=== PATIENT | female | born 1985 | race Caucasian/White ===

== ENCOUNTER 2022-07-19 13:00 | Emergency (ER) | payer MEDICAID, SELFPAY ==
[2022-07-19 13:10] VITALS: BP 133/92; PULSE 84; RESP 24; TEMP 37.1; O2SAT 100; BMI 51.7
== END 2022-07-19 13:43 | disposition left against medical advice (07) ==
PROVIDERS: Emergency Provider Emergency Medicine; PCP Obstetrics & Gynecology
DX: Z53.21 Procedure and treatment not carried out due to patient leaving prior to being seen by health care provider (principal)

== ENCOUNTER 2022-07-20 15:24 | Outpatient (OUT) | payer MEDICAID, SELFPAY ==
[2022-07-20 16:21] LABS: BOX Test Sent Out Y
== END 2022-07-20 15:25 ==
LOC: LAB 15:24
PROVIDERS: PCP Obstetrics & Gynecology; Visit Provider Obstetrics & Gynecology
DX: N92.6 Irregular menstruation, unspecified (principal)
CPT/HCPCS: 36415

== ENCOUNTER 2022-08-11 14:30 | Outpatient (OUT) | payer MEDICAID, SELFPAY ==
[2022-08-11 15:11] LABS: Glucose 1 Hour 141 mg/dL
== END 2022-08-11 14:31 | disposition home or self-care (01) ==
LOC: LAB 14:32
PROVIDERS: PCP Obstetrics & Gynecology; Visit Provider Obstetrics & Gynecology
DX: Z86.32 Personal history of gestational diabetes (principal)
CPT/HCPCS: 36415; 82950

== ENCOUNTER 2022-08-25 21:18 | Outpatient (OUT) | payer MEDICAID, SELFPAY ==
[2022-08-29 12:08] LABS: Age Gdln ACOG Testing Note (.); HPV Aptima Negative (Negative); IGP, Aptima HPV, rfx 16/18,45 Note (.)
== END 2022-08-25 21:19 | disposition home or self-care (01) ==
PROVIDERS: Visit Provider Physician Assistant
DX: Z12.4 Encounter for screening for malignant neoplasm of cervix (principal); Z11.51 Encounter for screening for human papillomavirus (HPV)
CPT/HCPCS: 87624; G0145

== ENCOUNTER 2022-09-05 20:59 | Emergency (ER) | payer MEDICAID, SELFPAY ==
[2022-09-05 21:11] VITALS: BP 140/70; RESP 16; TEMP 37.2; O2SAT 98; BMI 51.7
--- NOTE | 2022-09-05 21:45 | PC.NURSE ---
first attempt at getting hear tones unsuccessful. patient states it is not always easy to obtain. Nursing grading supervisor at bedside to attempt
--- NOTE | 2022-09-05 22:15 | ED.GENADUL1 ---
HPI - General Adult General Chief complaint: Recheck/Abnormal Lab/Rx Stated complaint: Decreased movement - under 20 weeks Time Seen by Provider: 09/05/22 22:13 Mode of arrival: walk-in History of Present Illness HPI narrative: patient approx 18 weeks . States she had not felt the fetus today and was concerned. She has no symptoms. No nausea, fever, spotting or urinary symptoms. No abdominal pain and doesn't feel ill Related Data Home Medications Medication Instructions Recorded Confirmed buprenorphine HCl 8 mg sublingual mg sublingual 09/05/22 tablet doxylamine succinate 25 mg tablet mg 09/05/22 (Nighttime Sleep-Aid (doxylamine)) ondansetron HCl 4 mg tablet mg 09/05/22 vit no.95-ferrous tab PO 09/05/22 fumarate 28 mg-folic acid 800 mcg tablet () Allergies Allergy/AdvReac Type Severity Reaction Status Date / Time Penicillins Allergy Severe Anaphylaxis Verified 09/05/22 21:20 Review of Systems ROS Status of ROS 10 or more systems reviewed and unremarkable except as noted in history and below PFSH PFS Social History Smoking status: Current every day smoker Exam Constitutional Vital Signs, click to edit/add: Last Vital Signs Temp 99 F 09/05/22 21:11 Resp 16 09/05/22 21:11 BP 140/70 H 09/05/22 21:11 Pulse Ox 98 09/05/22 21:11 O2 Del Method Room Air 09/05/22 21:11 Common normals: no apparent distress, oriented x3, alert and well nourished Eye Common normals: EOMs intact bilaterally and conjunctivae normal Respiratory Common normals: normal respiratory effort, no retractions, no use of accessory muscles and clear to auscultation bilaterally Cardio Common normals: regular rate, regular rhythm, S1 normal heart sound and S2 normal heart sound GI Common normals: Normal to inspection, nondistended, normoactive bowel sounds present, soft to palpation and non-tender Back & Pelvis Common normals: no CVA tenderness Extremity Common normals: normal to inspection, no joint enlargement and no pedal edema Neuro Common normals: CN's II-XII intact bilaterally, moves all extremities, no focal motor deficits and no sensory deficits noted Psych Appearance: grossly normal Course Vital Signs Vital signs: Vital Signs Temperature 99 F 09/05/22 21:11 Respiratory Rate 16 09/05/22 21:11 Blood Pressure 140/70 H 09/05/22 21:11 Pulse Oximetry 98 09/05/22 21:11 Oxygen Delivery Method Room Air 09/05/22 21:11 Temperature 99 F 09/05/22 21:11 Respiratory Rate 16 09/05/22 21:11 Blood Pressure 140/70 H 09/05/22 21:11 Pulse Oximetry 98 09/05/22 21:11 Oxygen Delivery Method Room Air 09/05/22 21:11 Medical Decision Making MDM Narrative Medical decision making narrative: patient is about 18 weeks . Did not feel the fetus moved today and wanted to get checked. Nursing staff able to find normal heart tones and they could feel fetus movement while checking for heart tones. Mother relieved. States she has no further concerns at this time and is requesting discharge Discharge Plan Discharge Chief Complaint: Recheck/Abnormal Lab/Rx Clinical Impression: and not yet delivered in second trimester Patient Disposition: Home, Self-Care Prescriptions / Home Meds: No Action Nighttime Sleep-Aid (doxylamn) 25 mg tablet buprenorphine HCl 8 mg tablet, sublingual SUBLINGUAL ondansetron HCl 4 mg tablet PNV cmb#95-ferrous fumarate-FA [] 28 mg iron- 800 mcg tablet PO Instructions: at 15 to 18 Weeks (ED) Stand Alone Forms: Portal Instructions Referrals: Shaikh Garland MD [Primary Care Provider] - 1 week
--- NOTE | 2022-09-05 22:18 | PC.NURSE ---
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 179bpm and was also able to feel kicks. dr. brito notified
== END 2022-09-05 22:44 | disposition home or self-care (01) ==
PROVIDERS: Emergency Provider Internal Medicine; PCP Internal Medicine
DX: O99.332 Smoking (tobacco) complicating pregnancy, second trimester (principal); F17.210 Nicotine dependence, cigarettes, uncomplicated; Z3A.18 18 weeks gestation of pregnancy; Z79.899 Other long term (current) drug therapy
CPT/HCPCS: 99281

== ENCOUNTER 2022-09-14 13:00 | Outpatient (OUT) | payer MEDICAID, SELFPAY ==
--- NOTE | 2022-09-14 13:04 | US_ITS ---
[address] [address] Patient Name: RYAN HALL MRN: [id number] date: 1985 Sex: F Assigned Patient Location: US Current Patient Location: US Accession/Order Number: [id number] Exam Date: 09/14/2022 13:10 Report Date: 09/14/2022 15:38 At the request of: EDUAR PADILLA Procedure: US OB cervical length EXAMINATION: US OB anatomy, US OB cervical length HISTORY: Second Trimester Z34.92 COMPARISON: Ultrasound transvaginal 06/26/2022 TECHNIQUE: Transabdominal sonographic examination was performed for obstetrical and evaluation. FINDINGS: Number: 1 Heart Rate: 142.1 bpm H.B. /min Amniotic Fluid Volume: Subjectively normal Placental Location: POSTERIOR with lower margin 1.4 cm from os. Cervix Length: 5.5 cm, closed. ANATOMY: Normal Structures -cerebellum, choroid plexus, cisterna magna, lateral cerebral ventricles, orbits, midline falx, hard palate, four-chamber heart, RVOT, LVOT, stomach, kidneys, bladder, umbilical cord insertion into abdomen, three-vessel cord, cervical spine, thoracic spine, lumbar spine, sacral spine, right upper extremity, left upper extremity, right lower extremity, left lower extremity. SUBOPTIMALLY SEEN: Hard palate, cardiac outflow tracts, kidneys ABNORMALITIES: None BIOMETRY: BPD: 4.4 cm 19 weeks 2 days HC: 16.8 cm 19 weeks 3 days AC: 14.6 cm 19 weeks 6 days FL: 3.1 cm 19 weeks 5 days EFW:310.5 grams; 39% FL/AC: 21.4 FL/BPD: 71.2 HC/AC: 1.2 GESTATIONAL AGE: Age by EDC: 19 weeks 6 days REJI by EDC: 02/02/2023 Age by current US: 19 weeks 4 days REJI by current US: 02/04/2023 US/US OB cervical length IMPRESSION: 1. Single live intrauterine with growth detailed above. 2. Posterior low-lying placenta. 3. Suboptimal visualization of the hard palate, cardiac outflow tracts, and kidneys secondary to patient body habitus and position. Electronically authenticated by: RODRIGO ACOSTA Date: 09/14/2022 15:38
--- NOTE | 2022-09-14 13:04 | US_ITS ---
[address] [address] Patient Name: RYAN HALL MRN: [id number] date: 1985 Sex: F Assigned Patient Location: US Current Patient Location: US Accession/Order Number: [id number] Exam Date: 09/14/2022 13:10 Report Date: 09/14/2022 15:38 At the request of: EDUAR PADILLA Procedure: US OB anatomy EXAMINATION: US OB anatomy, US OB cervical length HISTORY: Second Trimester Z34.92 COMPARISON: Ultrasound transvaginal 06/26/2022 TECHNIQUE: Transabdominal sonographic examination was performed for obstetrical and evaluation. FINDINGS: Number: 1 Heart Rate: 142.1 bpm H.B. /min Amniotic Fluid Volume: Subjectively normal Placental Location: POSTERIOR with lower margin 1.4 cm from os. Cervix Length: 5.5 cm, closed. ANATOMY: Normal Structures -cerebellum, choroid plexus, cisterna magna, lateral cerebral ventricles, orbits, midline falx, hard palate, four-chamber heart, RVOT, LVOT, stomach, kidneys, bladder, umbilical cord insertion into abdomen, three-vessel cord, cervical spine, thoracic spine, lumbar spine, sacral spine, right upper extremity, left upper extremity, right lower extremity, left lower extremity. SUBOPTIMALLY SEEN: Hard palate, cardiac outflow tracts, kidneys ABNORMALITIES: None BIOMETRY: BPD: 4.4 cm 19 weeks 2 days HC: 16.8 cm 19 weeks 3 days AC: 14.6 cm 19 weeks 6 days FL: 3.1 cm 19 weeks 5 days EFW:310.5 grams; 39% FL/AC: 21.4 FL/BPD: 71.2 HC/AC: 1.2 GESTATIONAL AGE: Age by EDC: 19 weeks 6 days REJI by EDC: 02/02/2023 Age by current US: 19 weeks 4 days REJI by current US: 02/04/2023 US/US OB anatomy IMPRESSION: 1. Single live intrauterine with growth detailed above. 2. Posterior low-lying placenta. 3. Suboptimal visualization of the hard palate, cardiac outflow tracts, and kidneys secondary to patient body habitus and position. Electronically authenticated by: RODRIGO ACOSTA Date: 09/14/2022 15:38
== END 2022-09-14 13:01 | disposition home or self-care (01) ==
LOC: US 13:00
PROVIDERS: PCP Internal Medicine; Visit Provider Physician Assistant
DX: Z34.92 Encounter for supervision of normal pregnancy, unspecified, second trimester (principal); Z3A.19 19 weeks gestation of pregnancy
CPT/HCPCS: 76805; 76817

== ENCOUNTER 2022-10-16 16:01 | Outpatient (OUT) | payer MEDICAID, SELFPAY ==
[2022-10-22 00:06] LABS: AFP Value 93.2 ng/mL (.); Gest. Age on Collection Date 24.4 weeks (.); Gestat. Age Based On Ultrasound (.); Insulin Dep Diabetes No (.); Maternal Age At EDD 37.8 yr (.); OSBR Risk 1 IN See interpretation. (.); Results Report (.)
== END 2022-10-16 16:02 | disposition home or self-care (01) ==
LOC: LAB 16:01
PROVIDERS: PCP Internal Medicine; Visit Provider Physician Assistant
DX: Z34.92 Encounter for supervision of normal pregnancy, unspecified, second trimester (principal)
CPT/HCPCS: 36415; 82105

== ENCOUNTER 2022-10-16 16:02 | Outpatient (OUT) | payer MEDICAID, SELFPAY ==
[2022-10-16 16:21] LABS: Basophils Absolute Auto 0.1 10^3/uL (0.0-0.1); Basophils Percent Auto 0.5 % (0.2-2.0); Eosinophils Absolute Auto 0.2 10^3/uL (0.0-0.7); Eosinophils Percent Auto 1.6 % (0.9-7.0); Hematocrit 33.4 % (36.0-48.0); Hemoglobin 11.1 g/dL (12.0-16.0); Immature Granulocytes Abs Auto 0.08 10^3/uL (0.00-0.03); Immature Granulocytes Pct Auto 0.8 % (0.0-0.5); Lymphocytes Absolute Auto 1.2 10^3/uL (1.2-3.8); Lymphocytes Percent Auto 12.7 % (20.5-60.0); Mean Corpuscular HGB Conc 33.2 g/dL (29.9-35.2); Mean Corpuscular Hemoglobin 30.9 pg (26.7-34.0); Mean Platelet Volume 10.4 fL (9.5-13.5); Monocytes Absolute Auto 0.4 10^3/uL (0.3-0.8); Monocytes Percent Auto 4.6 % (1.7-12.0); Neutrophils Absolute Auto 7.7 10^3/uL (1.4-6.5); Neutrophils Percent Auto 79.8 % (43.0-75.0); Platelet Count 203 10^3/uL (150-450); Red Blood Count 3.59 10^6/uL (4.20-5.40); White Blood Count 9.6 10^3/uL (4.0-11.0)
[2022-10-16 16:47] LABS: Alanine Aminotransferase 16 U/L (14-59); Albumin Globulin Ratio 0.7; Albumin Level 3.1 g/dL (3.4-5.0); Alkaline Phosphatase 61 U/L (46-116); Anion Gap 13.1; Aspartate Amino Transferase 10 U/L (15-37); BUN Creatinine Ratio 15.9; Bilirubin Total 0.3 mg/dL (0.2-1.0); Calcium 9.3 mg/dL (8.5-10.1); Carbon Dioxide 26.1 mmol/L (21.0-32.0); Chloride 102 mmol/L (98-107); Estimated GFR (African America >60 (>=60); Estimated GFR (Non-African Ame >60 (>=60); Globulin 4.3 g/dL; Glucose 90 mg/dL (74-106); Potassium 4.2 mmol/L (3.5-5.1); Sodium 137 mmol/L (136-145); Total Protein 7.4 g/dL (6.4-8.2)
== END 2022-10-16 16:03 | disposition home or self-care (01) ==
LOC: LAB 16:02
PROVIDERS: PCP Internal Medicine; Visit Provider Obstetrics & Gynecology
DX: O99.320 Drug use complicating pregnancy, unspecified trimester (principal); F11.20 Opioid dependence, uncomplicated; Z13.1 Encounter for screening for diabetes mellitus; Z34.92 Encounter for supervision of normal pregnancy, unspecified, second trimester
CPT/HCPCS: 36415; 80053; 82105; 85025

== ENCOUNTER 2022-11-03 11:55 | Outpatient (OUT) | payer MEDICAID, SELFPAY | END 2022-11-03 11:56 | disposition home or self-care (01) | LOC: CR 11:55 | PROVIDERS: PCP Internal Medicine; Visit Provider Obstetrics & Gynecology | DX: O24.419 Gestational diabetes mellitus in pregnancy, unspecified control (principal) | CPT/HCPCS: G0108 ==

== ENCOUNTER 2022-11-26 01:04 | Emergency (ER) | payer MEDICAID, SELFPAY ==
[2022-11-26 01:07] VITALS: BP 160/79; PULSE 94; RESP 17; TEMP 36.5; O2SAT 100; BMI 52.5
--- NOTE | 2022-11-26 01:31 | ED.GENADUL1 ---
HPI - General Adult General Chief complaint: Abdominal Pain Stated complaint: 30 weeks with constipation Time Seen by Provider: 11/26/22 01:12 Source: patient Mode of arrival: walk-in Limitations: no limitations History of Present Illness HPI narrative: This 37-year-old female who is 30 weeks presents for evaluation of painful hemorrhoids. The patient states that she has been using Colace 3 times a day and MiraLAX once a week. This has been keeping her bowel movements regular. Earlier this evening she had a bowel movement and had several hemorrhoids prolapse out of her rectum. She states that this is painful for her. She tried reducing the hemorrhoids back in her rectum but was unable to due to the discomfort. She is not having any bleeding from the hemorrhoids. She is not having any abdominal pain or vaginal bleeding. She denies any related complaints. She states that she had hemorrhoids with her other pregnancies but they were not this bad and that was also 10 years ago. She is also on Subutex that constipates her to a certain degree. Related Data Home Medications Medication Instructions Recorded Confirmed buprenorphine HCl 8 mg sublingual mg sublingual 09/05/22 tablet doxylamine succinate 25 mg tablet mg 09/05/22 (Nighttime Sleep-Aid (doxylamine)) ondansetron HCl 4 mg tablet mg 09/05/22 vit no.95-ferrous tab PO 09/05/22 fumarate 28 mg-folic acid 800 mcg tablet () Allergies Allergy/AdvReac Type Severity Reaction Status Date / Time Penicillins Allergy Severe Anaphylaxis Verified 11/26/22 01:11 Review of Systems ROS Status of ROS 10 or more systems reviewed and unremarkable except as noted in history and below [facility] Social History Smoking status: Current every day smoker Exam Narrative Exam Narrative: Nurses note and vital signs reviewed and patient is not hypoxic. Blood pressure is elevated at 160/79 General: Uncomfortable-appearing overweight female, no respiratory distress Skin: Warm, dry, no pallor noted. There is no rash noted. Head: Normocephalic, atraumatic Eye: Normal conjunctiva, no drainage, EOMI. PERRL Cardiovascular: Regular Rate and Rhythm Respiratory: Patient is in no distress, no accessory muscle use, lungs are clear to auscultation, no wheezing, rales or rhonchi Back: non-tender, no CVA tenderness bilaterally to percussion. GI: Normal bowel sounds, Rapid uterus, nontender Rectal exam: 3 nonthrombosed external hemorrhoids are noted. No bleeding appreciated. I was able to gently reduce 2 of these back into the rectum but they prolapse almost immediately after removing my finger. Musculoskeletal: The patient has no evidence of calf tenderness, no pitting edema, symmetrical pulses noted bilaterally Neurological: A&O x4, normal speech Psychiatric: Cooperative Constitutional Vital Signs, click to edit/add: Last Vital Signs Temp 97.7 F 11/26/22 01:07 Pulse 94 H 11/26/22 01:07 Resp 17 11/26/22 01:07 BP 160/79 H 11/26/22 01:07 Pulse Ox 100 11/26/22 01:07 O2 Del Method Room Air 11/26/22 01:07 Course Vital Signs Vital signs: Vital Signs Temperature 97.7 F 11/26/22 01:07 Pulse Rate 94 H 11/26/22 01:07 Respiratory Rate 17 11/26/22 01:07 Blood Pressure 160/79 H 11/26/22 01:07 Pulse Oximetry 100 11/26/22 01:07 Oxygen Delivery Method Room Air 11/26/22 01:07 Temperature 97.7 F 11/26/22 01:07 Pulse Rate 94 H 11/26/22 01:07 Respiratory Rate 17 11/26/22 01:07 Blood Pressure 160/79 H 11/26/22 01:07 Pulse Oximetry 100 11/26/22 01:07 Oxygen Delivery Method Room Air 11/26/22 01:07 Medical Decision Making MDM Narrative Medical decision making narrative: This 30-year-old female presents for evaluation of painful hemorrhoids that started this evening after having a bowel movement. She has been taking MiraLAX once a week and Colace 3 times a day. She has 3 smaall nonthrombosed external hemorrhoids. I was able to gently reduce 2 of them but they did prolapse again out of the rectum almost immediately. She was treated emergency department with a Urojet placed into her rectum for pain control. Discharged home with prescription for Proctofoam HC. Additionally I encouraged her to do sits baths and increase her MiraLAX to 3-4 times a week or daily. Her blood pressure was notably elevated upon arrival. We rechecked it after she was more comfortable and it was in the 130s/70s manually. She was given a note for work and was instructed to monitor her blood pressure closely. Discharge Plan Discharge Chief Complaint: Abdominal Pain Clinical Impression: Acute hemorrhoid, and not yet delivered in second trimester Patient Disposition: Home, Self-Care Time of Disposition Decision: 01:47 Condition: Good Prescriptions / Home Meds: No Action Nighttime Sleep-Aid (doxylamn) 25 mg tablet buprenorphine HCl 8 mg tablet, sublingual SUBLINGUAL ondansetron HCl 4 mg tablet PNV cmb#95-ferrous fumarate-FA [] 28 mg iron- 800 mcg tablet PO Instructions: Hemorrhoids (ED), Sitz Bath (DC) Stand Alone Forms: Portal Instructions Referrals: Shaikh Garland MD [Primary Care Provider] - 1 week
[2022-11-26] MEDS: LIDOCAINE 2% JELLY 10 ML UR (01:44)
[2022-11-26 01:58] VITALS: BP 132/70
== END 2022-11-26 01:59 | disposition home or self-care (01) ==
PROVIDERS: Emergency Provider Emergency Medicine; PCP Internal Medicine
DX: O22.43 Hemorrhoids in pregnancy, third trimester (principal); O99.333 Smoking (tobacco) complicating pregnancy, third trimester; F17.210 Nicotine dependence, cigarettes, uncomplicated; Z3A.30 30 weeks gestation of pregnancy; Z79.899 Other long term (current) drug therapy
CPT/HCPCS: 99283

== ENCOUNTER 2022-12-17 06:59 | Outpatient (OUT) | payer MEDICAID, SELFPAY ==
--- NOTE | 2022-12-17 | US_ITS ---
[address] [address] Patient Name: RYAN HALL MRN: [facility]:[id number] date: 1985 Sex: F Assigned Patient Location: [facility] Current Patient Location: Accession/Order Number: [id number] Exam Date: 12/17/2022 15:00 Report Date: 12/18/2022 17:55 At the request of: JESSICA GARG Procedure: US OB BPP w non-stress EXAMINATION: US OB BPP w non-stress HISTORY: GESTATION DIABETES O24.410 COMPARISON: No relevant comparison available. TECHNIQUE: Ultrasound biophysical profile was performed in the radiology department. FINDINGS: BREATHING MOVEMENTS: 2.0 GROSS BODY MOVEMENTS: 2.0 TONE: 2.0 QUALITATIVE AMNIOTIC FLUID VOLUME: 2.0 PRESENTATION: BREECH HEART RATE: 131.1 bpm H.B./min AMNIOTIC FLUID VOLUME: 13.3 cm cm GESTATIONAL AGE: 33 weeks 2 days CONCLUSION: Total biophysical profile score: 8.0 Electronically authenticated by: GABO DYKES Date: 12/18/2022 17:55
--- NOTE | 2022-12-17 | US_ITS ---
[address] [address] Patient Name: RYAN HALL MRN: [facility]:[id number] date: 1985 Sex: F Assigned Patient Location: US Current Patient Location: US Accession/Order Number: [id number] Exam Date: 12/17/2022 15:00 Report Date: 12/18/2022 17:59 At the request of: JESSICA GARG Procedure: US OB growth PROCEDURE: US OB growth HISTORY: FEATL SIZE INCONSISTENT WITH DATS O26.849 COMPARISON: None. TECHNIQUE: Transabdominal sonographic examination was performed for obstetrical and evaluation. FINDINGS: Number: 1 Heart Rate: 131.1 bpm H.B. /min Amniotic Fluid Volume: 13.3 cm, largest pocket 4.9 cm Placental Location: Posterior BIOMETRY: BPD: 8.1 cm 32 weeks 3 days , 20% HC: 30.2 cm 33 weeks 4 days , 21% AC:29.8 cm 33 weeks 5 days , 66% FL: 6.7 cm 34 weeks 4 days , 75% EFW: 2292.4 grams 5 lbs. 1 oz., 60% FL/AC: 22.6 FL/BPD: 83.6 HC/AC: 1.0 GESTATIONAL AGE: Age by EDC: 33 weeks 2 days REJI by EDC: 02/02/2023 Ultrasound Age: 33 weeks 4 days Ultrasound REJI: 01/31/2023 US/US OB growth IMPRESSION: Normal interval growth *Reference: [facility] Practice Guideline for the performance of Obstetric Ultrasound Examinations, November 15, 2006. Electronically authenticated by: GABO DYKES Date: 12/18/2022 17:59
[2022-12-17 16:15] VITALS: BP 134/61; PULSE 82
== END 2022-12-17 16:46 | disposition home or self-care (01) ==
LOC: US 06:59 → FBC 15:13
PROVIDERS: PCP Internal Medicine; Visit Provider Obstetrics & Gynecology
DX: O24.410 Gestational diabetes mellitus in pregnancy, diet controlled (principal); O26.843 Uterine size-date discrepancy, third trimester; Z3A.32 32 weeks gestation of pregnancy
CPT/HCPCS: 76816; 76818

== ENCOUNTER 2022-12-22 08:25 | Outpatient (OUT) | payer MEDICAID, SELFPAY ==
--- NOTE | 2022-12-22 15:32 | US_ITS ---
[address] [address] Patient Name: RYAN HALL MRN: [facility]:[id number] date: 1985 Sex: F Assigned Patient Location: [facility] Current Patient Location: Accession/Order Number: [id number] Exam Date: 12/22/2022 15:32 Report Date: 12/23/2022 15:53 At the request of: JESSICA GARG Procedure: US OB BPP w non-stress EXAMINATION: US OB BPP w non-stress HISTORY: Diet controlled GDM COMPARISON: Ultrasound biophysical 12/17/2022 TECHNIQUE: Ultrasound biophysical profile was performed in the radiology department. BREATHING MOVEMENTS: 2.0 GROSS BODY MOVEMENTS: 2.0 TONE: 2.0 QUALITATIVE AMNIOTIC FLUID VOLUME: 2.0 PRESENTATION: BREECH HEART RATE: 137.1 bpm bpm. AMNIOTIC FLUID VOLUME: 13.3 cm GESTATIONAL AGE: 34 weeks 0 days CONCLUSION: Total biophysical profile score 8.0. Electronically authenticated by: RODRIGO ACOSTA Date: 12/23/2022 15:53
[2022-12-22 15:58] VITALS: BP 138/72; PULSE 80
== END 2022-12-22 16:45 | disposition home or self-care (01) ==
LOC: US 08:26 → FBC 15:31
PROVIDERS: PCP Internal Medicine; Visit Provider Obstetrics & Gynecology
DX: O26.843 Uterine size-date discrepancy, third trimester (principal); O24.410 Gestational diabetes mellitus in pregnancy, diet controlled; Z3A.34 34 weeks gestation of pregnancy
CPT/HCPCS: 76818

== ENCOUNTER 2022-12-25 08:10 | Outpatient (OUT) | payer MEDICAID, SELFPAY ==
[2022-12-25 15:22] VITALS: BP 142/63; PULSE 85
== END 2022-12-25 15:45 | disposition home or self-care (01) ==
LOC: FBCO 08:10 → FBC 15:11
PROVIDERS: PCP Internal Medicine; Visit Provider Obstetrics & Gynecology
DX: O24.419 Gestational diabetes mellitus in pregnancy, unspecified control (principal); Z3A.00 Weeks of gestation of pregnancy not specified
CPT/HCPCS: 59025

== ENCOUNTER 2022-12-29 07:32 | Outpatient (OUT) | payer MEDICAID, SELFPAY ==
--- NOTE | 2022-12-29 13:11 | US_ITS ---
[address] [address] Patient Name: RYAN HALL MRN: [facility]:[id number] date: 1985 Sex: F Assigned Patient Location: [facility] Current Patient Location: Accession/Order Number: [id number] Exam Date: 12/29/2022 13:15 Report Date: 12/29/2022 16:20 At the request of: JESSICA GARG Procedure: US OB BPP w non-stress EXAMINATION: US OB BPP w non-stress HISTORY: DIET CONTROLLED GESTATIONAL DIABETES MELLITUS O24.410 COMPARISON: Ultrasound OB biophysical 12/22/2022 TECHNIQUE: Ultrasound biophysical profile was performed in the radiology department. BREATHING MOVEMENTS: 2.0 GROSS BODY MOVEMENTS: 2.0 TONE: 2.0 QUALITATIVE AMNIOTIC FLUID VOLUME: 2.0 PRESENTATION: BREECH HEART RATE: 138.5 bpm bpm. AMNIOTIC FLUID VOLUME: 14.2 cm GESTATIONAL AGE: 35 weeks 0 days CONCLUSION: Total biophysical profile score 8.0. Electronically authenticated by: RODRIGO ACOSTA Date: 12/29/2022 16:20
[2022-12-29 13:46] VITALS: BP 148/77; PULSE 81
== END 2022-12-29 14:15 | disposition home or self-care (01) ==
LOC: US 07:32 → FBC 13:13
PROVIDERS: PCP Internal Medicine; Visit Provider Obstetrics & Gynecology
DX: O24.410 Gestational diabetes mellitus in pregnancy, diet controlled (principal); O32.1XX0 Maternal care for breech presentation, not applicable or unspecified; Z3A.35 35 weeks gestation of pregnancy
CPT/HCPCS: 76818

== ENCOUNTER 2023-01-01 07:13 | Outpatient (OUT) | payer MEDICAID, SELFPAY ==
[2023-01-01 13:56] VITALS: BP 148/74; PULSE 87
== END 2023-01-01 14:00 | disposition home or self-care (01) ==
LOC: FBCO 07:13 → FBC 13:11
PROVIDERS: PCP Internal Medicine; Visit Provider Obstetrics & Gynecology
DX: O24.419 Gestational diabetes mellitus in pregnancy, unspecified control (principal); Z3A.00 Weeks of gestation of pregnancy not specified
CPT/HCPCS: 59025

== ENCOUNTER 2023-01-05 07:29 | Outpatient (OUT) | payer MEDICAID, SELFPAY ==
--- NOTE | 2023-01-05 13:23 | US_ITS ---
[address] [address] Patient Name: RYAN HALL MRN: [facility]:[id number] date: 1985 Sex: F Assigned Patient Location: [facility] Current Patient Location: [facility] Accession/Order Number: [id number] Exam Date: 01/05/2023 13:30 Report Date: 01/05/2023 15:18 At the request of: JESSICA GARG Procedure: US OB BPP w non-stress EXAMINATION: US OB BPP w non-stress HISTORY: Diet controlled gestational diabetes mellitus COMPARISON: 12/29/22 TECHNIQUE: Ultrasound biophysical profile was performed in the radiology department. BREATHING MOVEMENTS: 2.0 GROSS BODY MOVEMENTS: 2.0 TONE: 2.0 QUALITATIVE AMNIOTIC FLUID VOLUME: 2.0 PRESENTATION: CEPHALIC HEART RATE: 128.5 bpm bpm. AMNIOTIC FLUID VOLUME: 13.1 cm GESTATIONAL AGE: 36 weeks 0 days CONCLUSION: Total biophysical profile score 8.0. Electronically authenticated by: RODRIGO ACOSTA Date: 01/05/2023 15:18
[2023-01-05 13:25] VITALS: BP 140/70; PULSE 100
--- OUTSIDE RECORDS SUMMARY | 2023-02-02 22:06 | XMS_ITS | CCD ---
Author Name Unknown Address [address] [place] [address] Organization [facility] Care Team Providers Care Life Science Taxonomist Name Role Phone IVAN FERNANDEZ Unavailable Unavailable GLORIA SNIDER Unavailable Unavailable ABBUD, TINA A Unavailable Unavailable ABBUD, TINA A Unavailable Unavailable ABBUD, TINA A Unavailable Unavailable ABBUD, TINA A Unavailable Unavailable ABBUD, TINA A Unavailable Unavailable ABBUD, TINA A Unavailable Unavailable ABBUD, TINA A Unavailable Unavailable ABBUD, TINA A Unavailable Unavailable ABBUD, TINA A Unavailable Unavailable ABBUD, TINA A Unavailable Unavailable ABBUD, TINA A Unavailable Unavailable ABBUD, TINA A Unavailable Unavailable ABBUD, TINA A Unavailable Unavailable ABBUD, TINA A Unavailable Unavailable ABBUD, TINA A Unavailable Unavailable ABBUD, TINA A Unavailable Unavailable ABBUD, TINA A Unavailable Unavailable ABBUD, TINA A Unavailable Unavailable ABBUD, TINA A Unavailable Unavailable ABBUD, TINA A Unavailable Unavailable ABBUD, TINA A Unavailable Unavailable ABBUD, TINA A Unavailable Unavailable ABBUD, TINA A Unavailable Unavailable ABBUD, TINA A Unavailable Unavailable ABBUD, TINA A Unavailable Unavailable ABBUD, TINA A Unavailable Unavailable ABBUD, TINA A Unavailable Unavailable ABBUD, TINA A Unavailable Unavailable BAGHDY, VERO Unavailable Unavailable GLORIA SNIDER Unavailable Unavailable KIAH, YAZID Unavailable Unavailable ZAIZAFOUN, MANAF Unavailable Unavailable TYLOR SARABIA Unavailable Unavailable ABBUD, TINA A Unavailable Unavailable FELIPA PYLE Unavailable Unavailable LUIS LÓPEZ I Unavailable Unavailable KATHERINE, TANIKA Unavailable Unavailable QUERUBIN, BRIAN Unavailable Unavailable HERRERA, GOVINDRAM K Unavailable Unavailable NO FAMILY DOCTOR, NO FAMILY DOCTOR Primary Care Unavailable GABO HAYES Attending Unavailable PROVIDER, UNKNOWN Admitting Unavailable YUMIKO ALLISON Attending Unavailable FAWWAD, KISER H Admitting Unavailable FAWWAD, KISER H Attending Unavailable FAWWAD, KISER H Primary Care Unavailable FAWWAD, KISER H Consulting Unavailable FOREST ., DR LOPEZ Admitting Unavailable FOREST ., DR LOPEZ Attending Unavailable FAWWAD, KISER H Primary Care Unavailable FOREST ., DR LOPEZ Consulting Unavailable ZIEBER, DR RODRIGO Viveros Consulting Unavailable REQUEST, DR RONNA LISTED Consulting Unavaila ble FAWWAD, KISER H Primary Care Unavailable HAY ., DR MCKEON Admitting Unavailable HAY ., DR MCKEON Attending Unavailable GRECHNY ., KEHINDE ARTHUR Consulting Unavailabl e FOREST ., DR LOPEZ Admitting Unavailable FOREST ., DR LOPEZ Attending Unavailable FAWWAD, KISER H Primary Care Unavailable FOREST ., DR LOPEZ Consulting Unavailable FAWWAD, KISER H Admitting Unavailable FAWWAD, KISER H Attending Unavailable FAWWAD, KISER H Primary Care Unavailable FAWWAD, KISER H Consulting Unavailable Kayce MATHIS, Liliane Briones Attending Lien Devries PA-C, Liliane Briones Attending Lien Garland MD, Referring Unavailable Suresh Broderick MD Attending Unavaila ble FORESTJESSICA Attending Unavailable EDUAR PADILLA Attending Unavailable VALERIE, EDUAR Attending Unavailable EDUAR PADILLA Attending Unavailable Allergies Allergy Classification Reported Allergen(s) Allergy Type Date of Onset Reaction(s) Facility (1 source) Acetaminophen / HYDROcodone; Translations: [HYDROCODONE-ACETA MINOPHEN] Drug Allergy 9 [facility] Repository (2 sources) traMADol; Translations: [TRAMADOL] Drug Allergy 6 [facility] Repository (1 source) Acetaminophen / HYDROcodone Drug Allergy 6 [facility] Repository (1 source) Codeine Drug Allergy 9 [facility] Repository (1 source) Penicillin Drug Allergy 0 [facility] Repository Problems Active Problems Problem Classification Problem Date Documented Da te Episodic/Chronic Abdominal pain (2 sources) Unspecified abdominal pain; Translations: [Unspecified abdominal pain] Onset: 04-05-2018 Episodic Allergic reactions (1 source) Allergy status to penicillin Onset: 04-05-2018 Episodic Bacterial infection; unspecified site (1 source) Bacteremia; Translations: [Bacteremia] Onset: 01-06-2018 Episodic Chronic obstructive pulmonary disease and bronchiectasis (1 source) Bronchitis, not specified as acute or chronic; Translations: [Bronchitis, not specified as acute or chronic] Onset: 12-25-2017 Episodic Deficiency and other anemia (1 source) Iron deficiency anemia secondary to blood loss (chronic); Translations: [Iron deficiency anemia secondary to blood loss (chronic)] Onset: 12-25-2017 Chronic Disorders of teeth and jaw (1 source) Periapical abscess without sinus Onset: 04-05-2018 Episodic Fever of unknown origin (1 source) Fever, unspecified; Translations: [Fever, unspecified] Onset: 12-25-2017 Episodic Hepatitis (1 source) Chronic viral hepatitis C; Translations: [CHRONIC VIRAL HEPATITIS C] Onset: 04-23-2022 Chronic Menstrual disorders (4 sources) Irregular menstruation, unspecified; Translations: [IRREGULAR MENSTRUATION UNSPECIFIED] Onset: 06-15-2022 Chronic Other lower respiratory disease (2 sources) Shortness of breath; Translations: [Shortness of breath] Onset: 04-05-2018 Episodic Other and delivery including normal (1 source) Encounter for supervision of normal , unspecified, first trimester; Translations: [ENC SUP NORMAL PREG UNS FIRST TRI] Onset: 06-28-2022 Episodic Other screening for suspected conditions (not mental disorders or infectious disease) (4 sources) Abnormal findings on diagnostic imaging of other specified body structures; Translations: [ABNORML FIND DX IMG OTH BODY STRUC] Onset: 08-11-2021 Chronic Other skin disorders (4 sources) Localized swelling, mass and lump, head; Translations: [LOCALIZED SWELLING MASS AND LUMP HEAD] Onset: 04-22-2022 Episodic Other skin disorders (1 source) Rash and other nonspecific skin eruption; Translations: [RASH OTH NONSPECIFIC SKIN ERUPTION] Onset: 04-23-2022 Episodic Pneumonia (except that caused by tuberculosis or sexually transmitted disease) (2 sources) Pneumonia, unspecified organism; Translations: [Pneumonia, unspecified organism] Onset: 12-26-2017 Episodic Residual codes; unclassified (1 source) Tobacco use Onset: 04-05-2018 Episodic Substance-related disorders (1 source) Nicotine dependence, cigarettes, uncomplicated; Translations: [NICOTINE DEPEND CIGARETTES UNCOMP] Onset: 04-23-2022 Chronic Unclassified (1 source) HIGH GRADE BACTREMIA,GNR MRSA,MULTIPLE PULMONARY NODULES / HIGH GRADE BACTREMIA,GNR MRSA,MULTIPLE PULMONARY NODULES() Onset: 01-05-2018 Unclassified (2 sources) Adverse effect of penicillins, initial encounter; Translations: [Adverse effect of penicillins, initial encounter] Onset: 04-05-2018 Unclassified (2 sources) Pruritus, unspecified; Translations: [Pruritus, unspecified] Onset: 04-05-2018 Unclassified (1 source) Exposure to other specified factors, initial encounter Onset: 04-05-2018 Unclassified (1 source) Allergy, unspecified, initial encounter Onset: 04-05-2018 Unclassified (3 sources) CONTACT W/AND (SUSP) EXPOS COVID-19; Translations: [CONTACT W/AND (SUSP) EXPOS COVID-19] Onset: 06-19-2022 Past or Other Problems Problem Classification Problem Date Documented Da te Episodic/Chronic [place]-; endo-; and myocarditis; cardiomyopathy (except that caused by tuberculosis or sexually transmitted disease) (1 source) Acute and subacute infective endocarditis; Translations: [ACUTE SUBACUTE INFECTV ENDOCARDITIS] Onset: 08-14-2021 Episodic Unclassified (1 source) HIGH GRADE BACTREMIA,GNR MRSA,MULTIPLE PULMONARY NODULES; Translations: [HIGH GRADE BACTREMIA,GNR MRSA,MULTIPLE PULMONARY NODULES] Onset: 01-05-2018 Unclassified (1 source) CONTACT W/AND (SUSP) EXPOS COVID-19; Translations: [CONTACT W/AND (SUSP) EXPOS COVID-19] Onset: 06-16-2022 Results Test Name Value Interpretation Reference Range [facility] Otolaryngology Office/Clinic Noteon 07-14-2022 Otolaryngology Office/Clinic Note Chief Complaint Pt here for 1 wk f/u for ear infections History of Present Illness History of Present Illness HPI: pt here for f/u. Says she is feeling better. No itching or ear drainage. Review of Systems General Adult ROS Fatigue: No Appetite change: No Other General: No Weakness: No Weight gain: No Weight Loss: No Cardiovascular Chest pain/pressure: No Claudication: No Edema: No Orthopnea: No Other Cardiovascular: No Palpitations: No Syncope: No EENMT Bleeding gums: No Dental pain: No Ear drainage: No Ear pain: No Facial pain: No Hearing loss: No Hoarseness: No Mouth lesions: No Nasal congestion: No Nasal discharge: No Nosebleeds: No Other EENMT: No Postnasal drainage: No Sore_throat: No Tinnitus: No Vision Changes: No Gastrointestinal Abdominal pain: No Constipation: No Diarrhea: No Dysphagia: No Fecal incontinence: No Heartburn: No Nausea: No Other GI: No Stools, black/bloody: No Vomiting: No Vomiting blood: No Genitourinary Decreased urine output: No Dysuria: No Frequency: No Genital irritation: No Hematuria: No Hesitancy: No Impaired urge sensation: No Other Genitourinary: No Polyuria: No Sexual dysfunction: No Urgency: No Urinary Incontinence: No Vaginal discharge: No Hematologic/Lymphatic Musculoskeletal Neurological Psychiatric Respiratory Apnea: No Cough: No Hemoptysis: No Other Respiratory: No Shortness_of_breath: No Snoring: No Sputum production: No Wheezing: No Skin Physical Exam Additional Vitals No qualifying data available. Overall:[Communication mode is clear, normal] [Appearance- no acute distress, appears stated age and is well nourished] Assistive device:[ none] Head:[normocephalic, no trauma, lesions or asymmetry] Ocular appearance:[ Conjuctiva- clear and bright, no drainage or infection. EOM intact] Ears:[ external ear- normal shape, no signs of infection, mass, lesion or asymmetry bilaterally. Ear canal is healthy, free from wax and infection, bilaterally] [Eardrum-healthy, no sign of infection, trauma, perforation or infection] [Middle ear- healthy, no obvious fluid present or infection]]. Mental Status:[Alert and oriented x3][Mood and affect normal][Gait is normal]. Assessment/Plan 1. Otitis externa of both ears Pt has resolving OE bilat with no further scaling. Pt to continue with cream intermittently to prevent infection and scaling to ear canal. Keep ears dry and avoid qtips. Medical Decision Making Chronic conditions NOT treated during this visit that affected my overall medical decision making: [] Treatment plans discussed but not opted for at this time: [] Prescribed medication that requires intensive monitoring for toxicity: [] I have reviewed the patient?s medication list for medication interactions/contraindications and/or for upcoming procedures: [yes or no] Time Spent with the Patient I have personally spent [19] minutes on this date, directly related to today's patient visit, including pre and post visit work, for this date of service. Time listed does not include time spent on separately billable services. Problem List/Past Medical History Ongoing UTI - Urinary tract infection Historical No qualifying data Procedure/Surgical History REMOVAL OF GALLBLADDER section - at term (12/10/2008) delivery - delivered (09/26/2012) Medications clotrimazole-betamethasone dipropionate 1%-0.05% topical cream, 1 clare, Topical, BID doxylamine, Oral Suboxone, Oral Allergies penicillin G sodium (skin redness, Skin irritation, Airway constriction) penicillin v (Airway constriction, skin redness, Skin irritation) penicillin V potassium (Skin irritation, Erythema, Airway constriction) Social History Tobacco Never (less than 100 in lifetime) Use:. Electronically signed by Liliane Devries PA-C 07/18/22 11:45 EDT Normal [facility] Otolaryngology Office/Clinic Noteon 07-06-2022 Otolaryngology Office/Clinic Note Chief Complaint Pt states here for recurrent ear infections History of Present Illness History of Present Illness HPI: pt here for recurrent ear infections that began early jan. Rt was always worse than Lt and it was more inner ear but she states its more outer ear and it comes and goes. very itchy. She has wetness on and off and the right er has been plugged on and off since Jan. She has tried atb,d rops and she admits to qtips use with neosporin. Symptoms always recur. Hearing seems unaffected Review of Systems General Adult ROS Fatigue: No Appetite change: No Other General: No Weakness: No Weight gain: No Weight Loss: No Cardiovascular Chest pain/pressure: No Claudication: No Edema: No Orthopnea: No Other Cardiovascular: No Palpitations: No Syncope: No EENMT Bleeding gums: No Dental pain: No Ear drainage: No Ear pain: No Facial pain: No Hearing loss: No Hoarseness: No Mouth lesions: No Nasal congestion: No Nasal discharge: No Nosebleeds: No Other EENMT: No Postnasal drainage: No Sore_throat: No Tinnitus: No Vision Changes: No Gastrointestinal Abdominal pain: No Constipation: No Diarrhea: No Dysphagia: No Fecal incontinence: No Heartburn: No Nausea: No Other GI: No Stools, black/bloody: No Vomiting: No Vomiting blood: No Genitourinary Decreased urine output: No Dysuria: No Frequency: No Genital irritation: No Hematuria: No Hesitancy: No Impaired urge sensation: No Other Genitourinary: No Polyuria: No Sexual dysfunction: No Urgency: No Urinary Incontinence: No Vaginal discharge: No Hematologic/Lymphatic Musculoskeletal Neurological Psychiatric Respiratory Apnea: No Cough: No Hemoptysis: No Other Respiratory: No Shortness_of_breath: No Snoring: No Sputum production: No Wheezing: No Skin Physical Exam Vitals & Measurements T: 36.5 ?C (Temporal Artery) HT: 171 cm WT: 150.6 kg WT: 150.6 kg (Dosing) BMI: 51.5 Additional Vitals No qualifying data available. Overall:[Communication mode is clear, normal] [Appearance- no acute distress, appears stated age and is well nourished] Assistive device:[ none] Head:[normocephalic, no trauma, lesions or asymmetry] Ocular appearance:[ Conjuctiva- clear and bright, no drainage or infection. EOM intact] Ears:[ external ear- normal shape, no signs of infection, mass, lesion or asymmetry bilaterally. Ear canal shows wax impaction, wet squamous debris, bilaterally. This was cleaned and removed with microinstrumentation as adequate view of eardrum was not possible. Once removed ear exam notes scaling to outer ear canals bilat [Eardrum-healthy, no sign of infection, trauma, perforation or infection] [Middle ear- healthy, no obvious fluid present or infection] Nose:[ External- healthy, no sign of asymmetry, lesion or infection] Septum:[ Midline, no sign of perforation, infection or deviation] Turbinates:[ normal, no hypertrophy, mass or polyp] Nasal passages:[ clear, no infection, drainage or obstruction] Oral cavity:[ Normal, tongue healthy no mass, lesion or infection. Soft and hard palate normal. Bimanual palpation is normal. Mucosa moist, free from infection][ Benign gingiva, good dental hygiene][Tonsil size is normal, no asymmetry, mass or lesionn][oropharynx- clear, no evidence of post nasal drip, cobblestoning or other abnormalities] Mental Status:[Alert and oriented x3][Mood and affect normal][Gait is normal]. Assessment/Plan 1. Otitis externa of both ears Pt has OE, chronic bilat. this was cleaned today with FLORES powder placed to treat. SHe is to keep ears clean and dry. Cream given to use on outer ear to help with eczema. Recheck in a week to ensurre improvement Orders: clotrimazole-betamethasone dipropionate topical, 1 clare, Topical, BID, X 14 days, # 45 g, 0 Refill(s), 07/20/22 15:17:00 EDT, Pharmacy: [facility]/pharmacy #[id number] Medical Decision Making Chronic conditions NOT treated during this visit that affected my overall medical decision making: [] Treatment plans discussed but not opted for at this time: [] Prescribed medication that requires intensive monitoring for toxicity: [] I have reviewed the patient?s medication list for medication interactions/contraindications and/or for upcoming procedures: [yes or no] Time Spent with the Patient I have personally spent [30] minutes on this date, directly related to today's patient visit, including pre and post visit work, for this date of service. Time listed does not include time spent on separately billable services. Problem List/Past Medical History Ongoing UTI - Urinary tract infection Historical No qualifying data Procedure/Surgical History REMOVAL OF GALLBLADDER section - at term (12/10/2008) delivery - delivered (09/26/2012) Medications clotrimazole-betamethasone dipropionate 1%-0.05% topical cream, 1 clrae, Topical, BID doxylamine, Oral Suboxone, Oral Jitendra (more content not included)... Normal [facility] US PREG TVon 06-26-2022 US PREG TV EXAMINATION: US PREG TV HISTORY: Missed period COMPARISON: No relevant comparison available. FINDINGS: GESTATIONAL SAC: Present and normal appearing. YOLK SAC: Present and normal appearing. POLE: Present and normal appearing. CARDIAC: Present. UTERUS: Normal size and appearance. OVARIES: Right: Normal. Left: Normal. CERVIX: 4.1 cm in length and closed. CUL-DE-SAC: Normal. OTHER: None. AGE BY LMP: Unknown LMP REJI BY LMP: AGE BY US CRL: 8 weeks 3 days REJI BY US CRL: [birth year]/02[birth year]23 IMPRESSION: 1. Single live intrauterine 8 weeks 3 days. Electronically authenticated by: RODRIGO ACOSTA Date: 2022-06-26 09:18 Normal [facility] Covid-19 PCR ([facility])on SARS-CoV-2 (COVID-19) RNA JANET+probe Ql (Unsp spec) Not detected Normal NOT DETECTED [facility] Comment on above: Result Comment: This test is not yet approved or cleared by the [place] FDA. When there are no FDA-approved or cleared tests available, and other criteria are met, FDA can make tests available under an emergency access mechanism called an Emergency Use Authorization (EUA). The EUA for this test is supported by the [employer] of Health and Human Service's (HHS's) declaration that circumstances exist to justify the emergency use of in vitro diagnostics for the detection and/or diagnosis of the virus that causes COVID-19. This EUA will remain in effect (meaning this test can be used) for the duration of the COVID-19 declaration justifying emergency of IVDs, unless it is terminated or revoked by FDA (after which the test may no longer be used). When diagnostic testing is negative, the possibility of a false negative should be considered in the context of a patient's recent exposures and the presence of clinical signs and symptoms consistent with SARS-CoV-2. Performed By: #### [facility] #### [facility] [address] [place] [address] Dr. Ja Cohen INFLUENZA A AND B AGon 06-16 INFLUANEGH SEE BELOW Normal [facility] Comment on above: Result Comment: Nega tive for Flu A protein angiten. Infection due to Flu A cannot be ruled out. Flu A angiten in the sample may be below the detection limit of the test. Performed By: #### I NFLUAB #### [facility] [address] [place] [address] Dr. Ja Cohen INFLUBNEGH SEE BELOW Normal [facility] Comment on above: Result Comment: Nega tive for Flu B protein antigen. Infection due to Flu B cannot be ruled out. Flu B antigen in the sample may be below the detection limit of the test. Performed By: #### I NFLUAB #### [facility] [address] [place] [address] Dr. Ja Cohen INFLUENZA A AG Negative Normal NEGATIVE SEE COMMENT [facility] Comment on above: Performed By: #### I NFLUAB #### [facility] [address] [place] [address] Dr. Ja Cohen INFLUENZA B AG Negative Normal NEGATIVE SEE COMMENT [facility] Comment on above: Performed By: #### I NFLUAB #### [facility] [address] [place] [address] Dr. Ja Cohen SYMPTOMATIC COVID-19 ANTIGEN on 06-16-2022 EUA Statement SEE BELOW Normal [facility] Comment on above: Result Comment: This test has not been FDA cleared or approved, but has been authorized by the FDA under an Emergency Use Authorization (EUA) for use by authorized laboratories certified under CLIA that meet the requirements to perform moderate or high complexity testing. This test has been authorized only for the detection of proteins from SARS-CoV-2, not for any other viruses or pathogens. The emergency use of this test is authorized for the duration of the declaration that circumstances exist justifying the authorization of emergency use of in vitro diagnostic tests for detection and/or diagnosis of Covid-19 under section 564(b)(1) of the Act, 21 U.S.C. 360bbb-3(b)(1), unless the declaration is terminated or authorization is revoked sooner. Performed By: #### C VDAGS #### [facility] [address] [place] [address] Dr. Ja Cohen SARS-CoV-2 (COVID-19) RNA NA A+probe Ql (Unsp spec) Negative Normal NEGATIVE [facility] Comment on above: Performed By: #### C VDAGS #### [facility] [address] [place] [address] Dr. Ja Cohen PREG QUANT HCGon 06-11-2022 HCG QUANT 76816 mIU/mL Normal [facility] Comment on above: Performed By: #### P REGQNT #### [facility] [address] [place] [address] Dr. Ja Cohen HCG RANGE SEE BELOW Normal [facility] Comment on above: Result Comment: 5-50 0.2-1 WEEK 50-500 1-2 WEEKS 100-5,000 2-3 WEEKS 500-10,000 3-4 WEEKS 1,000-50,000 4-5 WEEKS 10,000-100,000 5-6 WEEKS 15,000-200,000 6-8 WEEKS 10,000- 100,000 2-3 MONTHS Performed By: #### P REGQNT #### [facility] [address] [place] [address] Dr. Ja Cohen ECHOCARDIO M/2D COMPLETEon 0 08-11-2021 ECHOCARDIO M/2D COMPLETE Patient: RYAN HALL Exam Date: 08/11/2021 : 1985 Gender:F Ordering : SHAIKH Addy GARLAND . Admission #: [id number] Family : Order #: [id number] CLICK HERE TO VIEW EXAM ECHOCARDIOGRAM REPORT PROCEDURE: CARDIO PULMONARY ECHOCARDIO M/2D COMP INDICATIONS: Infective endocarditis of Tricuspid valve(2017) COMPARISON: None. DESCRIPTION: COMPLETE ECHOCARDIOGRAM Real-time transthoracic echocardiography with 2D, M-mode, spectral and color flow Doppler performed. QUALITY: Technical quality was adequate. LEFT VENTRICLE: Normal chamber size. Borderline left ventricular hypertrophy. LV EF: Normal left ventricular ejection fraction, (55%). DIASTOLIC: Normal diastolic function. ATRIAL SEPTUM: LEFT ATRIUM: Normal chamber size. RIGHT ATRIUM: Mild dilatation. RIGHT VENTRICLE: Mild dilatation. Normal right ventricular systolic function. TRICUSPID VALVE: Normal mobility and thickness. No vegetations are present. No stenosis with mild regurgitation. No evidence of pulmonary hypertension. RVSP 31mmHg MITRAL VALVE: Normal mobility and thickness. No mitral valve prolapse. No vegetations are present. No evidence of mitral valve stenosis. There is no mitral annular calcification. No mitral regurgitation. AORTIC VALVE: Normal trileaflet appearance. No visible sclerosis. Normal leaflet mobility. No vegetations are present. No evidence of aortic valve stenosis. No aortic regurgitation. AORTIC ROOT: Normal diameter and appearance. PULMONIC VALVE: Normal thickness and mobility. No stenosis. No regurgitation. PERICARDIUM: No evidence of pericardial effusion. IVC: Collapses with inspirations. Mildly dilated measuring 2.5cm PLEURA: CONCLUSION: 1. Normal ventricular systolic function. 2. Normal diastolic function. 3. No evidence of valvular dysfunction. 4. Normal right-sided pressures. 5. No evidence of vegetation seen. However the sensitivity of the study is limited by poor sound transmission. 6. No pericardial effusion. Adult Echocardiography Procedure Report Left Ventricle LVEDD (3.7 - 5.6 cm): 5.09 cm LVESD (2.2 - 4.0 cm): 3.81 cm LVIVS thickness (0.6 - 1.2 cm): 1.14 cm LVPW thickness (0.5 - 1.0 cm): 9.53 mm e': 12.60 cm/s E - e': 8.80 LVOT Area (cm2): 3.80 cm2 LVOT Diameter 2.20 cm Left Ventricular Ejection Fraction: 55 % Left Atrium LA Volume Index (2D A2C): 26.90 ml/m2 Left Atrium Systolic Dimension: 3.40 cm Left Atrium Systolic Area(A2C): 21.50 cm2 Left Atrium Systolic Area(A4C): 23.40 cm2 Left Atrium Systolic Volume(A2C): 47762 mm3 Left Atrium Systolic Volume(A4C): 18078 mm3 Mitral Valve MV E to A Ratio: 1.90 MV Mean Gradient: 1 mm[Hg] Deceleration Hoke: 6410 mm/s2 Mitral Valve A-Wave Peak Velocity: 59.80 cm/s Mitral Valve E-Wave Peak Velocity: 111.00 cm/s Right Ventricle RV Internal Diastolic Dimension: 4.20 cm Aorta AO Root Diam: 3.00 cm Aortic Valve AoV Area (Peak Jeff): 2.62 cm2 Aortic Valve Cusp Separation: 1.90 cm Peak Velocity(Antegrade Flow): 125.00 cm/s Peak Gradient(Antegrade Flow): 6 mm[Hg] Tricuspid Valve Peak Velocity (Regurgitant Flow): 217.00 cm/s, 224.00 cm/s Pulmonic Valve Peak Velocity: 84.70 cm/s Peak Gradient: 3 mm[Hg] Right Atrium Dictated by: Elder Mederos M.D. on 08/11/2021 at 12:48 Approved by: Elder Mederos M.D. on 08/11/2021 at 12:50 Normal [facility] AFB Culture with Stainon AFB Stain SEE NOTE Normal [facility] Comment on above: Result Comment: Nega tive for Acid Fast Bacteria.Less than 5 mL of specimen received.A minimum of 5 mL of sputum or fluid is recommendedfor recovery of acid fast bacilli (AFB).Volumes less than 5 mL are suboptimal and maycompromise recovery of AFB from culture. Final SEE NOTE Normal [facility] Comment on above: Result Comment: Cult ure negative for acid fast bacilliPerformed by [employer] [facility] [place] [address] eoi.Dnevnik, Artur Agustin MD - Lab. Director Preliminary SEE NOTE Normal [facility] Comment on above: Result Comment: Spec imen received and in progress.Positive culture results are called as soon as detected.Final report to follow in seven to eight weeksPerformed by [employer] [facility] [place] [address] dku.Dnevnik, Artur Agustin MD - Lab. Director AFB Stain SEE NOTE Normal [facility] Comment on above: Order Comment: CALL [place] LC1W tel. [phone], called hgb to ramila oseguera rn on 1w by [facility] results called to and read back by ramila oseguera on 1w, 12/27/201706:44, by RAYSHAWN Result Comment: Nega tive for Acid Fast Bacteria. Order Comment: Bronc h wash RULBronch Wash RUL Final SEE NOTE Normal [facility] Comment on above: Order Comment: Bronc h wash RULBronch Wash RUL Result Comment: Cult ure negative for acid fast bacilliPerformed by [employer] [facility] [place] [address] nxz.Dnevnik, Artur Agustin MD - Lab. Director Order Comment: CALL [place] LC1W tel. [phone], called hgb to ramila oseguera rn on 1w by scbHematology results called to and read back by ramila oseguera on 1w, 12/27/201706:44, by [facility] Basic Metabolic Panelon 01-15 Anion gap 3 molar conc 10 mmol/L Normal 7-13 [facility] Calcium mass conc 8.7 mg/dL Normal 8.6-10.2 [facility] Chloride molar conc 105 mmol/L Normal 98-107 [facility] CO2 molar conc 26 mmol/L Normal 22-29 [facility] Creatinine mass conc 0.60 mg/dL Normal 0.50-0.90 [facility] GFR/1.73 sq M predicted guillermo g blacks MDRD vol rate/area (S/P/Bld) mL/min/{1.73_m2} Normal >60 [facility] Comment on above: Result Comment: >60 mL/min/1.73m2 EGFR, calc. for ages 18 and older using theMDRD formula (not corrected for weight), is valid for stablerenal function. GFR/1.73 sq M.predicted MDRD vol rate/area mL/min/{1.73_m2} Normal >60 [facility] Comment on above: Result Comment: >60 mL/min/1.73m2 EGFR, calc. for ages 18 and older using theMDRD formula (not corrected for weight), is valid for stablerenal function. Glucose mass conc 101 mg/dL Normal 74-109 [facility] Potassium molar conc 4.5 mmol/L Normal 3.5-5.1 [facility] Sodium molar conc 141 mmol/L Normal 132-144 [facility] Urea nitrogen mass conc 15 mg/dL Normal 6-20 [facility] CBC With Platelet No Differe ntialon 02-01-2018 Erythrocyte distribution width Auto Ratio (RBC) 23.7 % Critically high 11.5-14.5 [facility] Hematocrit Auto Volume Fraction (Bld) 28.0 % Low 37.0-47.0 [facility] Hemoglobin mass conc (Bld) 9.3 g/dL Low 12.0-16.0 [facility] MCH Auto Entitic mass (RBC) 29.1 pg Normal 27.0-31.3 [facility] MCHC Auto mass conc (RBC) 33.1 % Normal 33.0-37.0 [facility] MCV Auto Entitic volume (RBC) 87.9 fL Normal 82.0-100.0 [facility] Platelets Auto #/vol (Bld) 229 10*3/uL Normal 130-400 [facility] RBC Auto #/vol (Bld) 3.19 10*6/uL Low 4.20-5.40 [facility] WBC Auto #/vol (Bld) 2.7 10*3/uL Low 4.8-10.8 [facility] Culture, Funguson 01-29-2018 Final SEE NOTE Normal [facility] Comment on above: Order Comment: CALL [place] LC1W tel. [phone], called hgb to ramila oseguera rn on 1w by scematology results called to and read back by ramila oseguera on 1w, 12/27/201706:44, by BON Result Comment: Cult ure negative for FungiPerformed by [employer] [place] [id number] ekd.Dnevnik, Artur Agustin MD - Lab. Director Basic Metabolic Panelon 01-15 Anion gap 3 molar conc 9 mmol/L Normal 7-13 [facility] Calcium mass conc 9.5 mg/dL Normal 8.6-10.2 [facility] Chloride molar conc 106 mmol/L Normal 98-107 [facility] CO2 molar conc 27 mmol/L Normal 22-29 [facility] Creatinine mass conc 0.71 mg/dL Normal 0.50-0.90 [facility] GFR/1.73 sq M predicted guillermo g blacks MDRD vol rate/area (S/P/Bld) mL/min/{1.73_m2} Normal >60 [facility] pital Comment on above: Result Comment: >60 mL/min/1.73m2 EGFR, calc. for ages 18 and older using theMDRD formula (not corrected for weight), is valid for stablerenal function. GFR/1.73 sq M.predicted MDRD vol rate/area mL/min/{1.73_m2} Normal >60 [facility] pital Comment on above: Result Comment: >60 mL/min/1.73m2 EGFR, calc. for ages 18 and older using theMDRD formula (not corrected for weight), is valid for stablerenal function. Glucose mass conc 93 mg/dL Normal 74-109 [facility] Potassium molar conc 4.7 mmol/L Normal 3.5-5.1 [facility] Sodium molar conc 142 mmol/L Normal 132-144 [facility] Urea nitrogen mass conc 14 mg/dL Normal 6-20 [facility] CBC With Platelet and Differ entialon 01-25-2018 Anisocytosis Auto Ql (Bld) PRESENT Normal [facility] Erythrocyte distribution width Auto Ratio (RBC) 28.7 % Critically high 11.5-14.5 [facility] Hematocrit Auto Volume Fraction (Bld) 24.9 % Low 37.0-47.0 [facility] Hemoglobin mass conc (Bld) 8.3 g/dL Low 12.0-16.0 [facility] MCH Auto Entitic mass (RBC) 28.2 pg Normal 27.0-31.3 [facility] MCHC Auto mass conc (RBC) 33.1 % Normal 33.0-37.0 [facility] MCV Auto Entitic volume (RBC) 85.0 fL Normal 82.0-100.0 [facility] Platelets Auto #/vol (Bld) 225 10*3/uL Normal 130-400 [facility] RBC Auto #/vol (Bld) 2.93 10*6/uL Low 4.20-5.40 [facility] Basophils Auto #/vol (Bld) 0.0 10*3/uL Normal 0.0-0.2 [facility] Basophils/100 WBC Auto (Bld) 1.0 % Normal [facility] Eosinophils Auto #/vol (Bld) 0.3 10*3/uL Normal 0.0-0.7 [facility] Eosinophils/100 WBC Auto (Bld) 5.4 % Normal [facility] Lymphocytes Auto #/vol (Bld) 1.7 10*3/uL Normal 1.0-4.8 [facility] ital Lymphocytes/100 WBC Auto (Bld) 37.1 % Normal [facility] ital Monocytes Auto #/vol (Bld) 0.2 10*3/uL Normal 0.2-0.8 [facility] ital Monocytes/100 WBC Auto (Bld) 5.1 % Normal [facility] ital Neutrophils Auto #/vol (Bld) 2.4 10*3/uL Normal 1.4-6.5 [facility] ital Neutrophils/100 WBC Auto (Bld) 51.4 % Normal [facility] ital WBC Auto #/vol (Bld) 4.7 10*3/uL Low 4.8-10.8 [facility] Culture, Funguson 01-24-2018 Final SEE NOTE Normal [facility] Comment on above: Order Comment: Bronc h Wash LLLBronch Wash LLL Result Comment: Cult ure POSITIVE forYeast not Cryptococcus speciesPerformed by [employer] [facility] [place] [address] ukx.Dnevnik, Artur Agustin MD - Lab. Director Preliminary SEE NOTE Normal [facility] Comment on above: Order Comment: Bronc h Wash LLLBronch Wash LLL Result Comment: Cult ure POSITIVE forYeast not Cryptococcus speciesPerformed by [employer] [facility] [place] [address] rwi.Dnevnik, Artur Agustin MD - Lab. Director Basic Metabolic Panelon Anion gap 3 molar conc 10 mmol/L Normal 7-13 [facility] Calcium mass conc 9.4 mg/dL Normal 8.6-10.2 [facility] Chloride molar conc 102 mmol/L Normal 98-107 [facility] CO2 molar conc 27 mmol/L Normal 22-29 [facility] Creatinine mass conc 0.70 mg/dL Normal 0.50-0.90 [facility] GFR/1.73 sq M predicted guillermo g blacks MDRD vol rate/area (S/P/Bld) mL/min/{1.73_m2} Normal >60 [facility] Comment on above: Result Comment: >60 mL/min/1.73m2 EGFR, calc. for ages 18 and older using theMDRD formula (not corrected for weight), is valid for stablerenal function. GFR/1.73 sq M.predicted MDRD vol rate/area mL/min/{1.73_m2} Normal >60 [facility] Comment on above: Result Comment: >60 mL/min/1.73m2 EGFR, calc. for ages 18 and older using theMDRD formula (not corrected for weight), is valid for stablerenal function. Glucose mass conc 73 mg/dL Low 74-109 [facility] Potassium molar conc 4.6 mmol/L Normal 3.5-5.1 [facility] Sodium molar conc 139 mmol/L Normal 132-144 [facility] Urea nitrogen mass conc 15 mg/dL Normal 6-20 [facility] CBC With Platelet No Differe ntialon 01-21-2018 Erythrocyte distribution width Auto Ratio (RBC) 24.9 % Critically high 11.5-14.5 [facility] Hematocrit Auto Volume Fraction (Bld) 24.4 % Low 37.0-47.0 [facility] Hemoglobin mass conc (Bld) 8.1 g/dL Low 12.0-16.0 [facility] MCH Auto Entitic mass (RBC) 28.3 pg Normal 27.0-31.3 [facility] MCHC Auto mass conc (RBC) 33.3 % Normal 33.0-37.0 [facility] MCV Auto Entitic volume (RBC) 85.0 fL Normal 82.0-100.0 [facility] Platelets Auto #/vol (Bld) 184 10*3/uL Normal 130-400 [facility] RBC Auto #/vol (Bld) 2.88 10*6/uL Low 4.20-5.40 [facility] WBC Auto #/vol (Bld) 4.6 10*3/uL Low 4.8-10.8 [facility] Basic Metabolic Panelon 11-2 Anion gap 3 molar conc 10 mmol/L Normal 7-13 [facility] Calcium mass conc 9.3 mg/dL Normal 8.6-10.2 [facility] Chloride molar conc 106 mmol/L Normal 98-107 [facility] CO2 molar conc 26 mmol/L Normal 22-29 [facility] Creatinine mass conc 0.93 mg/dL Critically high 0.50-0.90 [facility] GFR/1.73 sq M predicted among blacks MDRD vol rate/area (S/P/Bld) mL/min/{1.73_m2} Normal >60 [facility] Comment on above: Result Comment: >60 mL/min/1.73m2 EGFR, calc. for ages 18 and older using theMDRD formula (not corrected for weight), is valid for stablerenal function. GFR/1.73 sq M.predicted MDRD vol rate/area mL/min/{1.73_m2} Normal >60 [facility] Comment on above: Result Comment: >60 mL/min/1.73m2 EGFR, calc. for ages 18 and older using theMDRD formula (not corrected for weight), is valid for stablerenal function. Glucose mass conc 103 mg/dL Normal 74-109 [facility] Potassium molar conc 4.5 mmol/L Normal 3.5-5.1 [facility] Sodium molar conc 142 mmol/L Normal 132-144 [facility] Urea nitrogen mass conc 17 mg/dL Normal 6-20 [facility] CBC With Platelet and Differ entialon 01-11-2018 Anisocytosis Auto Ql (Bld) PRESENT Normal [facility] Erythrocyte distribution width Auto Ratio (RBC) 23.8 % Critically high 11.5-14.5 [facility] Hematocrit Auto Volume Fraction (Bld) 25.6 % Low 37.0-47.0 [facility] Hemoglobin mass conc (Bld) 8.4 g/dL Low 12.0-16.0 [facility] Hypochromia PRESENT Normal [facility] MCH Auto Entitic mass (RBC) 26.5 pg Low 27.0-31.3 [facility] MCHC Auto mass conc (RBC) 32.8 % Low 33.0-37.0 [facility] MCV Auto Entitic volume (RBC) 80.9 fL Low 82.0-100.0 [facility] Platelets Auto #/vol (Bld) 259 10*3/uL Normal 130-400 [facility] ital RBC Auto #/vol (Bld) 3.16 10*6/uL Low 4.20-5.40 [facility] Basophils Auto #/vol (Bld) 0.1 10*3/uL Normal 0.0-0.2 [facility] ital Basophils/100 WBC Auto (Bld) 1.5 % Normal [facility] ital Eosinophils Auto #/vol (Bld) 0.2 10*3/uL Normal 0.0-0.7 [facility] ital Eosinophils/100 WBC Auto (Bld) 4.2 % Normal [facility] ital Lymphocytes Auto #/vol (Bld) 1.9 10*3/uL Normal 1.0-4.8 [facility] ital Lymphocytes/100 WBC Auto (Bld) 40.0 % Normal [facility] ital Monocytes Auto #/vol (Bld) 0.1 10*3/uL Low 0.2-0.8 [facility] ital Monocytes/100 WBC Auto (Bld) 3.1 % Normal [facility] ital Neutrophils Auto #/vol (Bld) 2.4 10*3/uL Normal 1.4-6.5 [facility] ital Neutrophils/100 WBC Auto (Bld) 51.2 % Normal [facility] WBC Auto #/vol (Bld) 4.6 10*3/uL Low 4.8-10.8 [facility] Culture, Funguson 01-08-2018 Preliminary SEE NOTE Normal [facility] Comment on above: Order Comment: CALL [place] LC1W tel. [phone], called hgb to ramila oseguera rn on 1w by scematology results called to and read back by ramila oseguera on 1w, 12/27/201706:44, by RAYSHAWN Result Comment: No Nathan starks, culture still in progress.Performed by [employer] [place] [address],[place] [address] rts.Dnevnik, Artur Agustin MD - Lab. Director CBC With Platelet and Differ entialon 01-04-2018 Anisocytosis Auto Ql (Bld) 2+ Normal [facility] Bands 2 % Low 5-11 [facility] Basophils Auto #/vol (Bld) 0.1 10*3/uL Normal 0.0-0.2 [facility] Basophils/100 WBC Auto (Bld) 1.0 % Normal [facility] Eosinophils Auto #/vol (Bld) 0.2 10*3/uL Normal 0.0-0.7 [facility] Eosinophils/100 WBC Auto (Bld) 2.0 % Normal [facility] Lymphocytes Auto #/vol (Bld) 0.7 10*3/uL Low 1.0-4.8 [facility] Lymphocytes/100 WBC Auto (Bld) 9.0 % Normal [facility] Macrocytic 1+ Normal [facility] Microcytic 1+ Normal [facility] Monocytes Auto #/vol (Bld) 0.0 10*3/uL Low 0.2-0.8 [facility] Monocytes/100 WBC Auto (Bld) 4.4 % Normal [facility] Neutrophils Auto #/vol (Bld) 6.8 10*3/uL Critically high 1.4-6.5 [facility] Neutrophils/100 WBC Auto (Bld) 86.0 % Normal [facility] Ovalocytes 1+ Normal [facility] Platelet Slide Review Normal Normal [facility] Poikilocytosis 2+ Normal [facility] Tear Drop Cells 1+ Normal [facility] Erythrocyte distribution width Auto Ratio (RBC) 20.4 % Critically high 11.5-14.5 [facility] Hematocrit Auto Volume Fraction (Bld) 22.7 % Low 37.0-47.0 [facility] Hemoglobin mass conc (Bld) 7.4 g/dL Low 12.0-16.0 [facility] MCH Auto Entitic mass (RBC) 26.3 pg Low 27.0-31.3 [facility] MCHC Auto mass conc (RBC) 32.5 % Low 33.0-37.0 [facility] MCV Auto Entitic volume (RBC) 80.8 fL Low 82.0-100.0 [facility] Platelets Auto #/vol (Bld) 234 10*3/uL Normal 130-400 [facility] RBC Auto #/vol (Bld) 2.81 10*6/uL Low 4.20-5.40 [facility] WBC Auto #/vol (Bld) 7.7 10*3/uL Normal 4.8-10.8 [facility] Respiratory Virus Panel by Bret Solis 01-04-2018 Adenovirus B/E - PCR Not Detected Normal [facility] Adenovirus C - PCR Not Detected Normal [facility] Comment on above: Result Comment: The specimen submitted f or testing did not meet ARUPsubmission guidelines. Testing was performed on a specimenthat did not meet validated type requirements.Performance characteristics of this assay may be affected.Interpret results with caution. Please refer to the [facility] Test Directory for information on specimenacceptability:[email or web address].Test developed and characteristics determined by [facility]. See Compliance Statement B: [facility]/CS.Performed by [employer] [place] [id number] exm.Dnevnik, Artur Agustin MD - Lab. Director Human Metapneumovirus - PCR Not Detected Normal [facility] Human Rhinovirus - PCR Not Detected Normal [facility] Influenza A - PCR Not Detected Normal [facility] Influenza A 2009 H1N1 - PCR Not Detected Normal [facility] Influenza A H1 - PCR Not Detected Normal [facility] Influenza A H3 - PCR Not Detected Normal [facility] Influenza B - PCR Not Detected Normal [facility] Parainfluenza Virus 1 - PCR Not Detected Normal [facility] Parainfluenza Virus 2 - PCR Not Detected Normal [facility] Parainfluenza Virus 3 - PCR Not Detected Normal [facility] Respiratory Syncytial Virus A - PCR Not Detected Normal [facility] Respiratory Syncytial Virus B - PCR Not Detected Normal [facility] RVP Source Bronch Wash RUL Normal [facility] CBC With Platelet and Differ entialon 01-02-2018 Basophils Auto #/vol (Bld) 0.1 10*3/uL Normal 0.0-0.2 [facility] Basophils/100 WBC Auto (Bld) 0.8 % Normal [facility] Eosinophils Auto #/vol (Bld) 0.1 10*3/uL Normal 0.0-0.7 [facility] Eosinophils/100 WBC Auto (Bld) 1.6 % Normal [facility] Erythrocyte distribution width Auto Ratio (RBC) 19.9 % Critically high 11.5-14.5 [facility] Hematocrit Auto Volume Fraction (Bld) 22.0 % Low 37.0-47.0 [facility] Hemoglobin mass conc (Bld) 7.3 g/dL Low 12.0-16.0 [facility] Lymphocytes Auto #/vol (Bld) 1.2 10*3/uL Normal 1.0-4.8 [facility] Lymphocytes/100 WBC Auto (Bld) 19.0 % Normal [facility] MCH Auto Entitic mass (RBC) 26.8 pg Low 27.0-31.3 [facility] MCHC Auto mass conc (RBC) 33.4 % Normal 33.0-37.0 [facility] MCV Auto Entitic volume (RBC) 80.4 fL Low 82.0-100.0 [facility] Monocytes Auto #/vol (Bld) 0.3 10*3/uL Normal 0.2-0.8 [facility] Monocytes/100 WBC Auto (Bld) 4.9 % Normal [facility] Neutrophils Auto #/vol (Bld) 4.8 10*3/uL Normal 1.4-6.5 [facility] Neutrophils/100 WBC Auto (Bld) 73.7 % Normal [facility] Platelets Auto #/vol (Bld) 248 10*3/uL Normal 130-400 [facility] RBC Auto #/vol (Bld) 2.74 10*6/uL Low 4.20-5.40 [facility] WBC Auto #/vol (Bld) 6.5 10*3/uL Normal 4.8-10.8 [facility] Rejection Notificationon Rejected Test FOB Normal [facility] Rejected Test FOB Normal [facility] AFB Culture with Stainon Preliminary SEE NOTE Normal [facility] Comment on above: Order Comment: Bronc h wash RULBronch Wash RUL Result Comment: Spec imen received and in progress.Positive culture results are called as soon as detected.Final report to follow in seven to eight weeksPerformed by [employer] [facility] [place] [address] rir.Dnevnik, Artur Agustni MD - Lab. Director Preliminary SEE NOTE Normal [facility] Comment on above: Order Comment: CALL [address] tel. [phone], called hgb to ramila oseguera rn on 1w by scbHematology results called to and read back by ramila june on 1w, 12/27/201706:44, by BONSA Result Comment: Spec imen received and in progress.Positive culture results are called as soon as detected.Final report to follow in seven to eight weeksPerformed by [employer] [facility] [place] [address] tqv.Dnevnik, Artur Agustin MD - Lab. Director CBC With Platelet and Differ entialon 01-01-2018 Basophils Auto #/vol (Bld) 0.0 10*3/uL Normal 0.0-0.2 [facility] Comment on above: Order Comment: CALL [address] tel. [phone], called hgb to ramila oseguera rn on 1w by scbHematology results called to and read back by ramila june on 1w, 12/27/201706:44, by BONSA Basophils/100 WBC Auto (Bld) 0.8 % Normal [facility] Comment on above: Order Comment: CALL [address] tel. [phone], called hgb to ramila oseguera rn on 1w by scbHematology results called to and read back by ramila june on 1w, 12/27/201706:44, by BONSA Eosinophils Auto #/vol (Bld) 0.1 10*3/uL Normal 0.0-0. 7 [facility] Comment on above: Order Comment: CALL [address] tel. [phone], called hgb to ramila oseguera rn on 1w by scbHematology results called to and read back by ramila june on 1w, :44, by BONSA Eosinophils/100 WBC Auto (Bld) 1.8 % Normal [facility] Comment on above: Order Comment: CALL [facility] tel. [phone], called hgb to ramila oseguera rn on 1w by scbHematology results called to and read back by ramila oseguera on 1w, :44, by BONSA Erythrocyte distribution width Auto Ratio (RBC) 18.6 % Critically high 11.5-14.5 [facility] Comment on above: Order Comment: CALL [facility] tel. [phone], called hgb to ramila oseguera rn on 1w by scbHematology results called to and read back by ramila june on 1w, :44, by BONSA Hematocrit Auto Volume Fraction (Bld) 20.1 % Critically low 37.0-47.0 [facility] Comment on above: Order Comment: CALL [address] tel. [phone], called hgb to ramila oseguera rn on 1w by scbHematology results called to and read back by ramila oseguera on 1w, :44, by BONSA Hemoglobin mass conc (Bld) 6.7 g/dL Critically low 12.0- 16.0 [facility] Comment on above: Order Comment: CALL [address] tel. [phone], called hgb to ramila oseguera rn on 1w by scbHematology results called to and read back by ramila oseguera on 1w, :44, by BONSA Result Comment: veri fied by repeat Lymphocytes Auto #/vol (Bld) 0.9 10*3/uL Low 1.0-4. 8 [facility] Comment on above: Order Comment: CALL Murdock [facility] tel. [phone], called hgb to ramila oseguera rn on 1w by scbHematology results called to and read back by ramila oseguera on 1w, 12/27/201706:44, by BONSA Lymphocytes/100 WBC Auto (Bld) 18.3 % Normal [facility] Comment on above: Order Comment: [facility] [phone], called hgb to ramila june rn on 1w by scbHematology results called to and read back by ramila june on 1w, :44, by BONSA MCH Auto Entitic mass (RBC) 26.5 pg Low 27.0-31. 3 [facility] Comment on above: Order Comment: CALL Mur[facility] tel. [phone], called hgb to ramila june rn on 1w by scbHematology results called to and read back by ramila june on 1w, :44, by BONSA MCHC Auto mass conc (RBC) 33.1 % Normal 33.0-37.0 [facility] Comment on above: Order Comment: CALL Murdock [facility] tel. [phone], called hgb to ramila june rn on 1w by scbHematology results called to and read back by ramila june on 1w, :44, by BONSA MCV Auto Entitic volume (RBC) 80.0 fL Low 82.0-1 00.0 [facility] Comment on above: Order Comment: CALL [place] tel. [phone], called hgb to ramila june rn on 1w by scbHematology results called to and read back by ramila june on 1w, :44, by BONSA Monocytes Auto #/vol (Bld) 0.3 10*3/uL Normal 0.2-0.8 [facility] Comment on above: Order Comment: CALL [address] tel. [phone], called hgb to ramila june rn on 1w by scbHematology results called to and read back by ramila june on 1w, :44, by BONSA Monocytes/100 WBC Auto (Bld) 5.4 % Normal [facility] Comment on above: Order Comment: CALL [facility] tel. [phone], called hgb to ramila june rn on 1w by scbHematology results called to and read back by ramila june on 1w, :44, by BONSA Neutrophils Auto #/vol (Bld) 3.8 10*3/uL Normal 1.4-6. 5 [facility] Comment on above: Order Comment: CALL [facility] tel. [phone], called hgb to ramila oseguera rn on 1w by scbHematology results called to and read back by ramila june on 1w, 12/27/201706:44, by BONSA Neutrophils/100 WBC Auto (Bld) 73.7 % Normal [facility] Comment on above: Order Comment: CALL [facility] 1 tel. [phone], called hgb to ramila june rn on 1w by scbHematology results called to and read back by raimla june on 1w, 12/27/201706:44, by BONSA Platelets Auto #/vol (Bld) 174 10*3/uL Normal 130-400 [facility] Comment on above: Order Comment: CALL [facility] 1 tel. [phone], called hgb to ramila oseguera rn on 1w by scbHematology results called to and read back by ramila june on 1w, 12/27/201706:44, by BONSA RBC Auto #/vol (Bld) 2.51 10*6/uL Low 4.20-5.40 [facility] Comment on above: Order Comment: CALL [facility] tel. [phone], called hgb to ramila oseguera rn on 1w by scbHematology results called to and read back by ramila june on 1w, 12/27/201706:44, by BONSA WBC Auto #/vol (Bld) 5.1 10*3/uL Normal 4.8-10.8 [facility] Comment on above: Order Comment: CALL [facility] 1 tel. [phone], called hgb to ramila oseguera rn on 1w by scbHematology results called to and read back by ramila june on 1w, 12/27/201706:44, by BONSA Bacterial susceptibility fox el by Elvia 12-31-2017 Bacterial susceptibility panel by Minimum inhibitory concentration (ISRA) ORDERED BY: López PENALOZA: Blood COLLECTED: 12/31/17 00:40ANTIBIOTICS AT RADHA.: RECEIVED : 12/31/17 01:26CALL [facility] tel. [phone],Blood culture results called to and read back by Henri Christine, 01/01/2018 13:30, by Fely, Blood 2 FINAL 01/03/18 07:41 1 out of 2 blood cultures POSITIVE for Serratia marcescens S. marces ANTIBIOTICS ISRA Interp Amo xicillin/Clavulanate >=32 R Cefepime <=1 S Ceftriaxone <=1 S Ciprofloxacin <=0.25 S Gentamicin <=1 S Trimethoprim/Sulfamethoxazole <=20 S S=SUSCEPTIBLE I=INTERMEDIATE R=RESISTANT Normal [facility] CBC With Platelet and Differ entialon 12-31-2017 Basophils Auto #/vol (Bld) 0.1 10*3/uL Normal 0.0-0.2 [facility] Comment on above: Order Comment: CALL [facility] tel. [phone], called hgb to ramila june rn on 1w by scbHematology results called to and read back by ramila june on 1w, :44, by BONSA Basophils/100 WBC Auto (Bld) 0.7 % Normal [facility] Comment on above: Order Comment: CALL [address] tel. [phone], called hgb to ramila june rn on 1w by scbHematology results called to and read back by ramila june on 1w, :44, by BONSA Eosinophils Auto #/vol (Bld) 0.0 10*3/uL Normal 0.0-0. 7 [facility] Comment on above: Order Comment: CALL [address] tel. [phone], called hgb to ramila june rn on 1w by scbHematology results called to and read back by ramila june on 1w, :44, by BONSA Eosinophils/100 WBC Auto (Bld) 0.4 % Normal [facility] Comment on above: Order Comment: CALL [address] tel. [phone], called hgb to ramila june rn on 1w by scbHematology results called to and read back by ramila june on 1w, :44, by RAYSHAWN Erythrocyte distribution width Auto Ratio (RBC) 19.0 % Critically high 11.5-14.5 [facility] Comment on above: Order Comment: CALL [address] tel. [phone], called hgb to ramila june rn on 1w by scbHematology results called to and read back by ramila june on 1w, :44, by BON Hematocrit Auto Volume Fraction (Bld) 19.7 % Critically low 37.0-47.0 [facility] Comment on above: Order Comment: CALL [facility] tel. [phone], called hgb to ramila oseguera rn on 1w by scbHematology results called to and read back by ramila june on 1w, :44, by RAYSHAWN Hemoglobin mass conc (Bld) 6.6 g/dL Critically low 12.0- 16.0 [facility] Comment on above: Order Comment: CALL [facility] tel. [phone], called hgb to ramila june rn on 1w by scbHematology results called to and read back by ramila june on 1w, :44, by BONSA Result Comment: swapna fied by repeat Lymphocytes Auto #/vol (Bld) 0.8 10*3/uL Low 1.0-4. 8 [facility] Comment on above: Order Comment: CALL [facility] tel. [phone], called hgb to ramila june rn on 1w by scbHematology results called to and read back by ramila june on 1w, :44, by BONSA Lymphocytes/100 WBC Auto (Bld) 9.0 % Normal [facility] Comment on above: Order Comment: CALL [address] tel. [phone], called hgb to ramila june rn on 1w by scbHematology results called to and read back by ramila june on 1w, 12/27/201706:44, by BONSA MCH Auto Entitic mass (RBC) 26.7 pg Low 27.0-31. 3 [facility] Comment on above: Order Comment: CALL [address] tel. [phone], called hgb to ramila june rn on 1w by scbHematology results called to and read back by ramila june on 1w, :44, by BONSA MCHC Auto mass conc (RBC) 33.3 % Normal 33.0-37.0 [facility] Comment on above: Order Comment: CALL [facility] tel. [phone], called hgb to ramila june rn on 1w by scbHematology results called to and read back by ramila june on 1w, :44, by BONSA MCV Auto Entitic volume (RBC) 80.1 fL Low 82.0-1 00.0 [facility] Comment on above: Order Comment: CALL [facility] tel. [phone], called hgb to ramila june rn on 1w by scbHematology results called to and read back by ramila june on 1w, :44, by BONSA Monocytes Auto #/vol (Bld) 0.5 10*3/uL Normal 0.2-0.8 [facility] Comment on above: Order Comment: CALL [facility] tel. [phone], called hgb to ramila oseguera rn on 1w by scbHematology results called to and read back by ramila june on 1w, :44, by BONSA Monocytes/100 WBC Auto (Bld) 5.4 % Normal [facility] Comment on above: Order Comment: CALL [facility] tel. [phone], called hgb to ramila oseguera rn on 1w by scbHematology results called to and read back by ramila june on 1w, :44, by BONSA Neutrophils Auto #/vol (Bld) 7.1 10*3/uL Critically high 1.4-6.5 [facility] Comment on above: Order Comment: CALL [facility] tel. [phone], called hgb to ramila oseguera rn on 1w by scbHematology results called to and read back by ramila june on 1w, :44, by BONSA Neutrophils/100 WBC Auto (Bld) 84.5 % Normal [facility] Comment on above: Order Comment: CALL [address] tel. [phone], called hgb to ramila oseguera rn on 1w by scbHematology results called to and read back by ramila june on 1w, :44, by BONSA Platelets Auto #/vol (Bld) 195 10*3/uL Normal 130-400 [facility] Comment on above: Order Comment: CALL [facility] tel. [phone], called hgb to ramila oseguera rn on 1w by scbHematology results called to and read back by ramila june on 1w, :44, by BONSA RBC Auto #/vol (Bld) 2.46 10*6/uL Low 4.20-5.40 [facility] Comment on above: Order Comment: [facility] [phone], called hgb to ramila oseguera rn on 1w by scbHematology results called to and read back by ramila oseguera on 1w, 12/27/201706:44, by RAYSHAWN WBC Auto #/vol (Bld) 8.4 10*3/uL Normal 4.8-10.8 [facility] Comment on above: Order Comment: CALL [facility] tel. [phone], called hgb to ramila oseguera rn on 1w by scbHematology results called to and read back by ramila oseguera on 1w, 12/27/201706:44, by RAYSHAWN Culture, Blood 2on 8 Culture, Blood 2 OR DERED BY: LESLIE PENALOZA: Blood COLLECTED: 12/31/17 00:40ANTIBIOTICS AT RADHA.: RECEIVED : 12/31/17 01:26[facility] tel. [phone],Blood culture results called to and read back by Henri Christine, 01/01/2018 13:30, by MICRECultdriss, Blood 2 INTERIM 01/02/18 08:16 Gram stain aerobic bottle Gram negative rods 1 out of 2 blood cultures Further results to follow POSITIVE for Gram negative arminad ID and sensitivity to follow Normal [facility] IR FLUORO GUIDED CVA DEVICE PLACEMENTon 12-31-2017 IR FLUORO GUIDED CVA DEVICE PLACEMENT PERIPHERALLY INSERTED CENTRAL CATHETER (PICC) PLACEMENT WITH ULTRASOUND GUIDANCE:CLINICAL HISTORY: IV access needed for long-term antibiotic therapy for bacteremia and MRSA. Central venous catheter was inserted using a maximal sterile barrier technique which includes cap, mask, sterile gown, sterile gloves, sterile full-body drape, hand hygiene and 2% chlorhexidine for cutaneous antisepsis. A sterile ultrasound technique with sterile gel and sterile probe covers was also utilized. A pre-procedure time out was performed in order to assure the correct patient and procedure. Local anesthetic was administered. The left basilic vein was accessed with sonographic guidance. A sonographic spot image was obtained for documentation. A guidewire was advanced into the vein with fluoroscopic guidance and a sheath was placed over the guidewire. A 4-Filipino 44 cm single lumen PICC was advanced through the sheath, up the arm and into the central vasculature. It was positioned appropriately. The sheath was removed. The catheter was shown to aspirate and infuse properly. The flange of the catheter was affixed to the arm using a PICC securement device. A spot image of the chest showed the tip of the PICC line to lie in the cavoatrial junction. The patient tolerated the procedure well and without complications. 33 of fluoroscopy were used, with a single screen image saved. No diagnostic images were obtained.Total time: 91.3 seconds.IMPRESSION: SUCCESSFUL PICC PLACEMENT WITHOUT IMMEDIATE COMPLICATIONS.Interpreted by:FRANCO Santamariaigned by:Gordon Hinton MD01/10/inal result Normal [facility] IR PICC WO SQ PORT/PUMP > 5 YEARSon 12-31-2017 IR PICC WO SQ PORT/PUMP > 5 YEARS PERIPHERALLY INSERTED CENTRAL CATHETER (PICC) PLACEMENT WITH ULTRASOUND GUIDANCE:CLINICAL HISTORY: IV access needed for long-term antibiotic therapy for bacteremia and MRSA. Central venous catheter was inserted using a maximal sterile barrier technique which includes cap, mask, sterile gown, sterile gloves, sterile full-body drape, hand hygiene and 2% chlorhexidine for cutaneous antisepsis. A sterile ultrasound technique with sterile gel and sterile probe covers was also utilized. A pre-procedure time out was performed in order to assure the correct patient and procedure. Local anesthetic was administered. The left basilic vein was accessed with sonographic guidance. A sonographic spot image was obtained for documentation. A guidewire was advanced into the vein with fluoroscopic guidance and a sheath was placed over the guidewire. A 4-Filipino 44 cm single lumen PICC was advanced through the sheath, up the arm and into the central vasculature. It was positioned appropriately. The sheath was removed. The catheter was shown to aspirate and infuse properly. The flange of the catheter was affixed to the arm using a PICC securement device. A spot image of the chest showed the tip of the PICC line to lie in the cavoatrial junction. The patient tolerated the procedure well and without complications. 33 of fluoroscopy were used, with a single screen image saved. No diagnostic images were obtained.Total time: 91.3 seconds.IMPRESSION: SUCCESSFUL PICC PLACEMENT WITHOUT IMMEDIATE COMPLICATIONS.Interpreted by:FRANCO Santamariaigned by:Gordon Hinton MD01/10/inal result Normal [facility] IR ULTRASOUND GUIDANCE VASCU LAR ACCESSon 12-31-2017 IR ULTRASOUND GUIDANCE VASCULAR ACCESS PERIPHERALLY INSERTED CENTRAL CATHETER (PICC) PLACEMENT WITH ULTRASOUND GUIDANCE:CLINICAL HISTORY: IV access needed for long-term antibiotic therapy for bacteremia and MRSA. Central venous catheter was inserted using a maximal sterile barrier technique which includes cap, mask, sterile gown, sterile gloves, sterile full-body drape, hand hygiene and 2% chlorhexidine for cutaneous antisepsis. A sterile ultrasound technique with sterile gel and sterile probe covers was also utilized. A pre-procedure time out was performed in order to assure the correct patient and procedure. Local anesthetic was administered. The left basilic vein was accessed with sonographic guidance. A sonographic spot image was obtained for documentation. A guidewire was advanced into the vein with fluoroscopic guidance and a sheath was placed over the guidewire. A 4-Filipino 44 cm single lumen PICC was advanced through the sheath, up the arm and into the central vasculature. It was positioned appropriately. The sheath was removed. The catheter was shown to aspirate and infuse properly. The flange of the catheter was affixed to the arm using a PICC securement device. A spot image of the chest showed the tip of the PICC line to lie in the cavoatrial junction. The patient tolerated the procedure well and without complications. 33 of fluoroscopy were used, with a single screen image saved. No diagnostic images were obtained.Total time: 91.3 seconds.IMPRESSION: SUCCESSFUL PICC PLACEMENT WITHOUT IMMEDIATE COMPLICATIONS.Interpreted by:FRANCO Santamariaigned by:Gordon Hinton MD01/10/inal result Normal [facility] Basic Metabolic Panel Reflex Mgon 12-30-2017 Calcium mass conc 8.4 mg/dL Low 8.6-10.2 [facility] Chloride molar conc 107 mmol/L Normal 98-107 [facility] CO2 molar conc 24 mmol/L Normal 22-29 [facility] Creatinine mass conc 0.73 mg/dL Normal 0.50-0.90 [facility] GFR/1.73 sq M predicted among blacks MDRD vol rate/area (S/P/Bld) mL/min/{1.73_m2} Normal >60 [facility] Comment on above: Result Comment: >60 mL/min/1.73m2 EGFR, calc. for ages 18 and older using theMDRD formula (not corrected for weight), is valid for stablerenal function. GFR/1.73 sq M.predicted MDRD vol rate/area mL/min/{1.73_m2} Normal >60 [facility] Comment on above: Result Comment: >60 mL/min/1.73m2 EGFR, calc. for ages 18 and older using theMDRD formula (not corrected for weight), is valid for stablerenal function. Glucose mass conc 82 mg/dL Normal 74-109 [facility] Potassium reflex Mg 4.8 mEq/L Normal 3.5-5.1 [facility] Sodium molar conc 140 mmol/L Normal 132-144 [facility] Urea nitrogen mass conc 8 mg/dL Normal 6-20 [facility] Anion gap 3 molar conc 9 mmol/L Normal 7-13 [facility] Body Fluid Cell Counton 12-16 Atypical Lymphs 3 % Normal [facility] Eosinophils/100 WBC Auto (Bld) 1 % Normal [facility] Lymphocytes/100 WBC Auto (Bld) 8 % Normal [facility] Mesothelials 50 % Normal [facility] Monocytes/100 WBC Auto (Bld) 20 % Normal [facility] Neutrophils/100 WBC Auto (Bld) 18 % Normal [facility] CBC With Platelet and Differ entialon 12-30-2017 Basophils Auto #/vol (Bld) 0.0 10*3/uL Normal 0.0-0.2 [facility] Comment on above: Order Comment: CALL [facility] tel. [phone],h and h results called to and read back by es perdomo on 4w / scb,12/30/2017 09:51, by RAYSHAWN Basophils/100 WBC Auto (Bld) 1.0 % Normal [facility] Comment on above: Order Comment: CALL [facility] tel. [phone],h and h results called to and read back by es perdomo on 4w / scb,12/30/2017 09:51, by RAYSHAWN Eosinophils Auto #/vol (Bld) 0.1 10*3/uL Normal 0.0-0. 7 [facility] Comment on above: Order Comment: CALL [facility] tel. [phone],h and h results called to and read back by es perdomo on 4w / scb,12/30/2017 09:51, by BONSA Eosinophils/100 WBC Auto (Bld) 1.8 % Normal [facility] Comment on above: Order Comment: CALL [facility] tel. [phone],h and h results called to and read back by es perdomo on 4w / scb,12/30/2017 09:51, by BONSA Erythrocyte distribution width Auto Ratio (RBC) 18.8 % Critically high 11.5-14.5 [facility] Comment on above: Order Comment: CALL [facility] tel. [phone],h and h results called to and read back by es perdomo on 4w / scb,12/30/2017 09:51, by BONSA Hematocrit Auto Volume Fraction (Bld) 20.8 % Critically low 37.0-47.0 [facility] Comment on above: Order Comment: CALL [facility] tel. [phone],h and h results called to and read back by es perdomo on 4w / scb,12/30/2017 09:51, by BONSA Hemoglobin mass conc (Bld) 7.0 g/dL Critically low 12.0- 16.0 [facility] Comment on above: Order Comment: CALL [facility] tel. [phone],h and h results called to and read back by es perdomo on 4w / scb,12/30/2017 09:51, by BONSA Lymphocytes Auto #/vol (Bld) 1.0 10*3/uL Normal 1.0-4. 8 [facility] Comment on above: Order Comment: CALL [facility] tel. [phone],h and h results called to and read back by es perdomo on 4w / scb,12/30/2017 09:51, by BONSA Lymphocytes/100 WBC Auto (Bld) 20.2 % Normal [facility] Comment on above: Order Comment: CALL [facility] tel. [phone],h and h results called to and read back by es perdomo on 4w / scb,12/30/2017 09:51, by BONSA MCH Auto Entitic mass (RBC) 26.8 pg Low 27.0-31. 3 [facility] Comment on above: Order Comment: CALL [facility] tel. [phone],h and h results called to and read back by es perdomo on 4w / scb,12/30/2017 09:51, by BONSA MCHC Auto mass conc (RBC) 33.9 % Normal 33.0-37.0 [facility] Comment on above: Order Comment: CALL [facility] tel. [phone],h and h results called to and read back by es perdomo on 4w / scb,12/30/2017 09:51, by BONSA MCV Auto Entitic volume (RBC) 79.1 fL Low 82.0-1 00.0 [facility] Comment on above: Order Comment: CALL [facility] tel. [phone],h and h results called to and read back by es perdomo on 4w / scb,12/30/2017 09:51, by BONSA Monocytes Auto #/vol (Bld) 0.2 10*3/uL Normal 0.2-0.8 [facility] Comment on above: Order Comment: CALL [facility] tel. [phone],h and h results called to and read back by es perdomo on 4w / scb,12/30/2017 09:51, by BON Monocytes/100 WBC Auto (Bld) 4.8 % Normal [facility] Comment on above: Order Comment: CALL [facility] tel. [phone],h and h results called to and read back by es perdomo on 4w / scb,12/30/2017 09:51, by BONSA Neutrophils Auto #/vol (Bld) 3.7 10*3/uL Normal 1.4-6. 5 [facility] Comment on above: Order Comment: CALL [facility] tel. [phone],h and h results called to and read back by es perdomo on 4w / scb,12/30/2017 09:51, by BONSA Neutrophils/100 WBC Auto (Bld) 72.2 % Normal [facility] Comment on above: Order Comment: CALL [facility] tel. [phone],h and h results called to and read back by es perdomo on 4w / scb,12/30/2017 09:51, by BONSA Platelets Auto #/vol (Bld) 231 10*3/uL Normal 130-400 [facility] Comment on above: Order Comment: CALL [facility] tel. [phone],h and h results called to and read back by es perdomo on 4w / scb,12/30/2017 09:51, by BONSA RBC Auto #/vol (Bld) 2.62 10*6/uL Low 4.20-5.40 [facility] Comment on above: Order Comment: CALL [facility] tel. [phone],h and h results called to and read back by es perdomo on 4w / scb,12/30/2017 09:51, by BONSA WBC Auto #/vol (Bld) 5.1 10*3/uL Normal 4.8-10.8 [facility] Comment on above: Order Comment: CALL [facility] tel. [phone],h and h results called to and read back by es perdomo on 4w / scb,12/30/2017 09:51, by BONSA CT SINUS WO CONTRASTon 12-30 CT SINUS WO CONTRAST CT sinuses without intravenous contrast medium.HISTORY:Bloody mucous from nose. Infection.Technical factors:CT imaging facial sinuses obtained and formatted as 2.5 mm contiguous axial images. Sagittal coronal reconstructions obtained during postprocessing. No intravenous contrast medium utilized. No prior CT facial sinuses available for comparison.FINDINGS:Frontal, ethmoid, sphenoid, and maxillary sinuses are patent. Nasal septum midline. Ostiomeatal complexes patent bilaterally.Mastoid air cells well aerated. Temporal mandibular joints without anomaly. Orbits without anomaly. No fracture, dislocation, bone lesion.IMPRESSION: Negative CT facial sinuses.All CT scans at this facility use dose modulation, iterative reconstruction, and/or weight based dosing when appropriate to reduce radiation dose to as low as reasonably achievable.. Interpreted by:Huan Funes MDSigned by:Huan Funes MD12/30/18Final result [facility] Miscellaneous test 1on 12-29-2017 Miscellaneous Test 1 SEE NOTE [facility] Comment on above: Order Comment: Terri gonzales has been rescheduled by VIVIEN at 12/26/2017 14:59. Reason:patient refusing until she gets pain meds Result Comment: Test name Result Flag Units RefIntvl HIV-1,2 Combo Antigen/Antibody Negative NegativeThe specimen was non-reactive for HIV-1 and HIV-2 antibodies, and [id number]. Based on this non-reactive screen result, further reflexivetestingwas not indicated and was, therefore, not performedINTERPRETIVE INFORMATION: HIV-1,2 Combo Ag/Ab EIA w/ReflexThis assay should not be used for blood donor screening, associatedre-entryprotocols, or for screening Human Cell, Tissues and Cellular andTissue-BasedProducts (HCT/P).Performed by [employer] [place] [id number] hqq.Dnevnik, Artur Agustin MD - Lab. Director Protein mass conc [id number] g/dL [facility] Comment on above: Order Comment: Terri gonzales has been rescheduled by VIVIEN at 12/26/2017 14:59. Reason:patient refusing until she gets pain meds [facility] Bacterial susceptibility panel by Minimum inhibitory concentration (ISRA) ORDERED BY: YOLANDA HERNÁNDEZ: Bronchial Washing Right Upper Lobe COLLECTED: 12/29/17 15:09ANTIBIOTICS AT RADHA.: RECEIVED : 12/29/17 15:37 Supplemental ReportCALL [facility] tel. [phone],MRSA results called to and read back by [place], 01/01/2018 12:18, by ROGLYGram Stain Direct FINAL 01/01/18 12:19 Rare WBC's Rare epithelial cells Rare Gram positive cocci Rare Gram negative rodsCulture, Respiratory FINAL 01/01/18 12:19 Light growth Staph aureus MRSA CONTACT PRECAUTIONS INDICATED PBP2= POSITIVE Rare growth Enterobacter cloacae complex Rare growth Serratia marcescens Refer to previous sensitivity Rare growth Yeast No further workup ___ S.aureus MRSA E. cloacae complex ANTIBIOTICS ISRA Interp ISRA Interp Amo xicillin/Clavulanate >=32 R Cefazolin R >=64 R Ceftriaxone R <=1 S Ciprofloxacin <=0.25 S Clindamycin 0.5 S Gentamicin <=0.5 S <=1 S Oxacillin 0.5 R Trimethoprim/Sulfamethoxazole <=10 S <=20 S Vancomycin <=0.5 S S=SUSCEPTIBLE I=INTERMEDIATE R=RESISTANT Normal [facility] Bacterial susceptibility panel by Minimum inhibitory concentration (ISRA) ORDERED BY: YOLANDA HERNÁNDEZ: Bronchial Washing Body Fluid COLLECTED: 12/29/17 14:43ANTIBIOTICS AT RADHA.: RECEIVED : 12/29/17 15:42[facility] tel. [phone],MRSAresults called to and read back by Nanci, 01/01/2018 12:22, by ROGLYGram Stain Direct FINAL 12/30/17 10:59 Few WBC's Few epithelial cells Few Mixed Respiratory FloraCulture, Respiratory FINAL 01/01/18 12:22 Light growth Enterobacter cloacae complex Rare growth Serratia marcescens Refer to previous sensitivity Heavy growth Staph aureus MRSA CONTACT PRECAUTIONS INDICATED PBP2= POSITIVE Previous value was 03 Staph aureus MSSA, verified by KEV at 13:15 on 12/31/17 Light growth Yeast No further workup ___ E. cloacae complex ANTIBIOTICS ISRA Interp Amo xicillin/Clavulanate >=32 R Cefazolin >=64 R Ceftriaxone <=1 S Ciprofloxacin <=0.25 S Gentamicin <=1 S Trimethoprim/Sulfamethoxazole <=20 S S=SUSCEPTIBLE I=INTERMEDIATE R=RESISTANT Normal [facility] Body Fluid Cell Counton 12-16 Appearance Nom (U) Hazy Normal [facility] Clot Check see below [facility] Comment on above: Result Comment: No C lots Seen Color Nom (U) Colorless Normal [facility] Fluid Source Pleural Normal [facility] Total Nucleated Cells 341 /cumm Normal [facility] Total Red Blood Cells 2888 /cumm Normal [facility] Total Cells Counted for Diff 100 Normal [facility] CBC With Platelet No Differe ntialon 12-29-2017 Erythrocyte distribution width Auto Ratio (RBC) 18.5 % Critically high 11.5-14.5 [facility] Comment on above: Order Comment: Terri gonzales has been rescheduled by SAUDE at 12/26/2017 14:59. Reason:patient refusing until she gets pain meds Hematocrit Auto Volume Fraction (Bld) 18.5 % Critically low 37.0-47.0 [facility] Comment on above: Order Comment: Terri gonzales has been rescheduled by SAUDE at 12/26/2017 14:59. Reason:patient refusing until she gets pain meds Hemoglobin mass conc (Bld) 6.2 g/dL Critically low 12.0- 16.0 [facility] Comment on above: Order Comment: Terri gonzales has been rescheduled by SAUDE at 12/26/2017 14:59. Reason:patient refusing until she gets pain meds MCH Auto Entitic mass (RBC) 26.6 pg Low 27.0-31. 3 [facility] Comment on above: Order Comment: Terri gonzales has been rescheduled by SAUDE at 12/26/2017 14:59. Reason:patient refusing until she gets pain meds MCHC Auto mass conc (RBC) 33.6 % Normal 33.0-37.0 [facility] Comment on above: Order Comment: Terri gonzales has been rescheduled by SAUDE at 12/26/2017 14:59. Reason:patient refusing until she gets pain meds MCV Auto Entitic volume (RBC) 79.0 fL Low 82.0-1 00.0 [facility] Comment on above: Order Comment: Terri gonzales has been rescheduled by SAUDE at 12/26/2017 14:59. Reason:patient refusing until she gets pain meds Platelets Auto #/vol (Bld) 173 10*3/uL Normal 130-400 [facility] Comment on above: Order Comment: Terri gonzales has been rescheduled by SAUDE at 12/26/2017 14:59. Reason:patient refusing until she gets pain meds RBC Auto #/vol (Bld) 2.34 10*6/uL Low 4.20-5.40 [facility] Comment on above: Order Comment: Terri gonzales has been rescheduled by SAUDE at 12/26/2017 14:59. Reason:patient refusing until she gets pain meds WBC Auto #/vol (Bld) 3.5 10*3/uL Low 4.8-10.8 [facility] Comment on above: Order Comment: Terri gonzales has been rescheduled by SAUDE at 12/26/2017 14:59. Reason:patient refusing until she gets pain meds CONSULTATIONon 12-29-2017 [place] [address] CONSULTATIONPATIENT NAME: RYAN HALL : 1985MED REC NO: [id number] ROOM:ACCOUNT NO: [id number] ADMIT DATE: 12/25/2017PROVIDER: Ayana Ahuja Herrera, [facility] DATE: 12/29/2017Consultation from Dr. Dominga Hernández.REASON FOR CONSULTATION: ENT evaluation for possible epistaxis andnasopharyngeal bleeding.REPORT OF CONSULTATION: This is a 32-year-old female who has beenadmitted in the hospital with multiple medical problems. The patient ishaving Serratia bacteremia, community acquired pneumonia with pulmonarynodules, and severe anemia.The patient's chart was reviewed and labs were reviewed. It is notedthat the patient had a bronchoscopy today, results awaiting.PHYSICAL EXAMINATION:GENERAL: This is a 32-year-old female who is awake, alert, and not inany distress.VITAL SIGNS: Stable.HEENT: Examination of the ears reveals no auricular lesions and earcanal show some debris in the right ear. Left ear is clear. Tympanicmembrane is not visualized. Nose, no external nasal deformity. Anterior rhinoscopy reveals a large blood clot. Oropharynx shows somemucopus.NECK: No obvious masses.IMPRESSION: Nasal septal perforation, blood clot, probably sinusitis,and pneumonia.PLAN: I will order a CT scan of the sinuses for further evaluation.Thank you Dr. Hernández for this consult.AYANA HERRERA, MDD: 12/29/2017 18:06:42 [id number]#: [id number] Doc#: [id number]: MD Dominga Rai MD [facility] Culture, Respiratoryon 12-29 Culture, Respiratory O RDERED BY: YOLANDA HERNÁNDEZ: Bronchial Washing Left Lower Lobe COLLECTED: 12/29/17 15:11ANTIBIOTICS AT RADHA.: RECEIVED : 12/29/17 15:41CALL [facility] LC4W tel. [phone],MRSA results called to and read back by Nanci, 01/01/2018 12:23, by KEVGram Stain Direct FINAL 12/30/17 10:54 Moderate WBC's, No organisms seenCulture, Respiratory FINAL 01/01/18 12:24 Light growth Staph aureus MRSA CONTACT PRECAUTIONS INDICATED PBP2= POSITIVE Previous value was 01 Staph aureus MSSA, verified by KEV at 13:14 on 12/31/17 [facility] Culture, Respiratory O RDERED BY: YOLANDA HERNÁNDEZ: Bronchial Washing Right Upper Lobe COLLECTED: 12/29/17 15:09ANTIBIOTICS AT RADHA.: RECEIVED : 12/29/17 15:37Gram Stain Direct FINAL 12/30/17 10:52 Rare WBC's Rare epithelial cells Rare Gram positive cocci Rare Gram negative rodsCulture, Respiratory INTERIM 12/31/17 13:13 Light growth Staph aureus MSSA Sensitivity to follow PBP2= Negative Rare growth Gram negative arminda ID and sensitivity to follow Rare growth Serratia marcescens Refer to previous sensitivity One colony Gram negative arminda ID to follow Normal [facility] Culture, Respiratory O RDERED BY: YOLANDA HERNÁNDEZ: Bronchial Washing Body Fluid COLLECTED: 12/29/17 14:43ANTIBIOTICS AT RADHA.: RECEIVED : 12/29/17 15:42Gram Stain Direct FINAL 12/30/17 10:59 Few WBC's Few epithelial cells Few Mixed Respiratory FloraCulture, Respiratory INTERIM 12/31/17 13:15 Light growth Gram negative arminda ID and sensitivity to follow Rare growth Serratia marcescens Refer to previous sensitivity Heavy growth Staph aureus MSSA Normal [facility] Cytology Medical Specimenon 12-29-2017 Cytology Medical Specimen Invalid Interpretatio n Code [facility] Comment on above: Result Comment: [place] [phone] CYTOLOGY REPORTPatient Name: RYAN HALL Accession No: [id number] Age Sex: 1985 32 Y/ F Location: [id number] No: [id number] Collected: 12/29/2017[facility] Rec No: [id number] Received: 12/30/2017Attend Phys: NEENA DUPONT Completed 01/03/2018Perform Phys: DOMINGA HERNÁNDEZINTERPRETATION/RESULTS:A. RIGHT UPPER LOBE BAL-MONOLAYER AND CELL BLOCK-DEGENERATED BRONCHIAL EPITHELIAL CELLS SQUAMOUS CELLS AND WBCS.B. RIGHT UPPER LOBE BRUSHING-MONOLAYER AND CELL BLOCK-A FEW BRONCHIAL CELLS, WITH REACTIVE TYPE ATYPIA.ADEQUACY:Adequate for evaluation.CATEGORIZATION:Negative for malignancy.SPECIMEN:A. Right Upper Lobe BALGROSS DESCRIPTION: 20 ml fixed1 monolayer1 cell blockhx Not givenB. Right Upper Lobe BrushingGROSS DESCRIPTION: 40 ml fixed1 monolayer1 cell blockhx Not givenCPT: 08157 X2 32771 X2 Screened by: Irasema CAZARES M.D. 01/03/2018 Electronically signed out by Page 1 of 1 FLUORO FOR SURGICAL PROCEDUR ESon 12-29-2017 FLUORO FOR SURGICAL PROCEDURES EXAMINATION: CONED-DOWN AP CHEST IN ORCLINICAL HISTORY: UPPER RESPIRATORY CONGESTION, COUGH, FEVER, ABNORMAL CHEST X-RAYCOMPARISONS: PORTABLE CHEST X-RAY FROM 12/28/2017FINDINGS: 5 coned-down films of the right hemithorax were obtained in the OR. On the second and third films, there is evidence of a bronchoscope in the distal end of the bronchoscope is directed towards the RUL. Additional information please refer to Dr. Hernández's intraoperative procedural note. (Number of films: 5 and fluoroscopy time: 52.6 seconds)IMPRESSION: CONED-DOWN AP FILMS OF THE CHEST OBTAINED DURING BRONCHOSCOPY PROCEDURE.Interpreted by:FRANCO Mittaligned by:Keith Durham MD12/29/17inal result Normal [facility] HCV by Quant NAATon 12-30-19 18 HCV Qnt by NAAT IU/mL Not Detected Normal [facility] Comment on above: Order Comment: Terri ction has been rescheduled by VIVIEN at 12/26/2017 14:59. Reason:patient refusing until she gets pain meds HCV Qnt by NAAT log IU/mL Not Detected Normal [facility] Comment on above: Order Comment: [facility] VIVIEN at 12/26/2017 14:59. Reason:patient refusing until she gets pain meds Prothrombin Timeon 8 INR Coag RelTime (PPP) 1.1 {INR} Normal [facility] Comment on above: Result Comment: Dimitrios mmended INR therapeutic ranges for oral anticoagulanttherapyProphylaxis/treatment of: INR Venous Thrombosis, Pulmonary Embolism 2.0-3Prevention of Systemic Embolism from: Atrial Fibrillation 2.0-3.0 Myocardial Infarction 2.0-3.0 Mechanical Prosthetics Heart Valves 2.5- 3.5 Recurrent Systemic Embolism 2.5-3.5Guidelines for patients with coagulopathy, e.g. liver disease:Use the Protime resulted in seconds. Mild 12.9-17.0 sec Moderate 17.1-22.6 sec Severe G.T. 22.6 sec Prothrombin time (PT) Coag t anuradha (PPP) 11.4 s Normal 9.6-12.3 [facility] Quantiferon-TB Gold Plus, 1- Tubeon 12-29-2017 Quantiferon Mitogen minus NIL 0.52 IU/mL Normal [facility] Comment on above: Order Comment: Terri gonzales has been rescheduled by SAUDE at 12/26/2017 14:59. Reason:patient refusing until she gets pain meds Quantiferon NIL 0.05 IU/mL Normal [facility] Comment on above: Order Comment: Terri gonzales has been rescheduled by SAUDE at 12/26/2017 14:59. Reason:patient refusing until she gets pain meds Result Comment: Perf ormed by [employer] [facility] [place] [address] zlo.Dnevnik, Artur Agustin MD - Lab. Director Quantiferon PlusTB1 minus NIL 0.00 IU/mL Normal 0.00-0 .34 [facility] Comment on above: Order Comment: Terri gonzales has been rescheduled by SAUDE at 12/26/2017 14:59. Reason:patient refusing until she gets pain meds Quantiferon PlusTB2 minus NIL 0.00 IU/mL Normal 0.00-0 .34 [facility] Comment on above: Order Comment: Terri gonzales has been rescheduled by SAUDE at 12/26/2017 14:59. Reason:patient refusing until she gets pain meds Quantiferon TB Gold Plus Negative Normal Negative [facility] Comment on above: Order Comment: Terri gonzales has been rescheduled by SAUDE at 12/26/2017 14:59. Reason:patient refusing until she gets pain meds Result Comment: Inte rpretive Data: Quantiferon TB Gold PlusInterferon gamma release is measured for specimens from each of thefourcollection tubes. A qualitative result (Negative, Positive, orIndeterminate)is based on interpretation of the four values, NIL, MITOGEN minus NIL(MITOGEN-NIL), TB1 minus NIL (TB1-NIL), and TB2 minus NIL (TB2-NIL).The NILvalue represents nonspecific reactivity produced by the patientspecimen. TheMITOGEN-NIL value serves as the positive control for the patientspecimen,demonstrating successful lymphocyte activity. The TB1-NIL tubespecificallydetects CD4+ lymphocyte reactivity, specifically stimulated by the AY6udhmgkcy. The TB2-NIL tube detects both CD4+ and CD8+ lymphocytereactivity,stimulated by TB2 antigens. An overall Negative result does notcompletelyrule out TB infection.A false-positive result in the absence of other clinical evidence of TBinfection is not uncommon. Refer to: Updated Guidelines for UsingInterferonGamma Release Assays to Detect Mycobacterium tuberculosis Infection ---[place], 2010(http://www.cdc.gov/mmwr/preview/mmwrhtml/kr3785c5.htm),for more information concerning test performance in low-prevalencepopulations and use in occupational screening. CBC With Platelet No Differe ari 12-28-2017 Erythrocyte distribution width Auto Ratio (RBC) 18.9 % Critically high 11.5-14.5 [facility] Comment on above: Order Comment: Terri gonzales has been rescheduled by SAUDE at 12/26/2017 14:59. Reason:patient refusing until she gets pain meds Hematocrit Auto Volume Fraction (Bld) 21.0 % Critically low 37.0-47.0 [facility] Comment on above: Order Comment: Terri gonzales has been rescheduled by SAUDE at 12/26/2017 14:59. Reason:patient refusing until she gets pain meds Hemoglobin mass conc (Bld) 6.8 g/dL Critically low 12.0- 16.0 [facility] Comment on above: Order Comment: Terri gonzales has been rescheduled by SAUDE at 12/26/2017 14:59. Reason:patient refusing until she gets pain meds Result Comment: call ed h and h to lavinia chacon on 1w MCH Auto Entitic mass (RBC) 26.0 pg Low 27.0-31. 3 [facility] Comment on above: Order Comment: Terri gonzales has been rescheduled by SAUDE at 12/26/2017 14:59. Reason:patient refusing until she gets pain meds MCHC Auto mass conc (RBC) 32.6 % Low 33.0-37.0 [facility] Comment on above: Order Comment: Terri gonzales has been rescheduled by SAUDE at 12/26/2017 14:59. Reason:patient refusing until she gets pain meds MCV Auto Entitic volume (RBC) 79.9 fL Low 82.0-1 00.0 [facility] Comment on above: Order Comment: Terri gonzales has been rescheduled by SAUDE at 12/26/2017 14:59. Reason:patient refusing until she gets pain meds Platelets Auto #/vol (Bld) 147 10*3/uL Normal 130-400 [facility] Comment on above: Order Comment: Terri gonzales has been rescheduled by SAUDE at 12/26/2017 14:59. Reason:patient refusing until she gets pain meds RBC Auto #/vol (Bld) 2.63 10*6/uL Low 4.20-5.40 [facility] Comment on above: Order Comment: Terri gonzales has been rescheduled by SAUDE at 12/26/2017 14:59. Reason:patient refusing until she gets pain meds WBC Auto #/vol (Bld) 4.2 10*3/uL Low 4.8-10.8 [facility] Comment on above: Order Comment: Terri gonzales has been rescheduled by SAUDE at 12/26/2017 14:59. Reason:patient refusing until she gets pain meds Hepatitis B Core Abs, Totalo n 12-28-2017 Hepatitis B Core Abs, Total Positive Abnormal Negative [facility] Comment on above: Order Comment: Terri gonzales has been rescheduled by SAUDE at 12/26/2017 14:59. Reason:patient refusing until she gets pain meds Result Comment: The anti-HBc is reactive, which is consistent with recent or remote HBVinfection. False positive anti-HBc results are not uncommon.INTERPRETIVE INFORMATION: Hepatitis B Core Ab (Total)This assay should not be used for blood donor screening, associatedre-entryprotocols, or for screening Human Cells, Tissues and Cellular andTissue-Based Products (HCT/P).Performed by [employer] [place] [id number] nzn.Dnevnik, Artur Agustin MD - Lab. Director Transferrinon 12-28-2017 Transferrin mass conc 135 mg/dL Low 200-400 [facility] Comment on above: Order Comment: Terri ction has been rescheduled by SATORI at 12/26/2017 14:59. Reason:patient refusing until she gets pain meds Result Comment: Perf ormed by [employer], [facility] [place] [address] twc.Dnevnik, Artur Agustin MD - Lab. Director XR CHEST PORTABLEon 12-29-19 XR CHEST PORTABLE Portable chest radio graphHistory: Follow-up pneumoniaTechnique: AP portable view of the chest obtained.Comparison: CT thorax from December 26, 2017; chest radiograph from December 25, 2017Findings:The cardiomediastinal silhouette is within normal limits. Left lower lobe opacity and right lower lobe opacity have worsened since prior chest radiographs. Blunting of the right costophrenic angle suggests small right sided pleural effusion. No pneumothorax. Osseous structures of the thorax appear intact.IMPRESSION: Bilateral lower lobe infiltrate better depicted on the CT thorax of December 26, 2017 has progressed when compared to chest x-ray of December 25, 2017. Small right-sided pleural effusion.Interpreted by:Chandrakant Montoya, DOSigned by:Chandrakant Montoya, DO12/28/18Final result Normal [facility] CBC With Platelet and Differ entialon 12-27-2017 Anisocytosis Auto Ql (Bld) 2+ Normal [facility] Comment on above: Order Comment: CALL [facility] LC1W tel. [phone], called hgb to ramila oseguera rn on 1w by scbHematology results called to and read back by ramila oseguera on 1w, 12/27/201706:44, by RAYSHAWN Hypochromia 1+ Normal [facility] Comment on above: Order Comment: CALL [facility] LC1W tel. [phone], called hgb to ramila oseguera rn on 1w by scbHematology results called to and read back by ramila oseguera on 1w, 12/27/201706:44, by RAYSHAWN Lymphocytes Auto #/vol (Bld) 0.8 10*3/uL Low 1.0-4. 8 [facility] Comment on above: Order Comment: CALL [facility] LC1W tel. [phone], called hgb to ramila may rn on 1w by scbHematology results called to and read back by ramila june on 1w, :44, by BONSA Lymphocytes/100 WBC Auto (Bld) 22.0 % Normal [facility] Comment on above: Order Comment: CALL [address] tel. [phone], called hgb to ramila oseguera rn on 1w by scbHematology results called to and read back by ramila june on 1w, :44, by BONSA Microcytic 2+ Normal [facility] Comment on above: Order Comment: CALL [facility] tel. [phone], called hgb to ramila oseguera rn on 1w by scbHematology results called to and read back by ramila june on 1w, :44, by BONSA Monocytes Auto #/vol (Bld) 0.1 10*3/uL Low 0.2-0.8 [facility] Comment on above: Order Comment: CALL [address] tel. [phone], called hgb to ramila oseguera rn on 1w by scbHematology results called to and read back by ramila june on 1w, :44, by BONSA Monocytes/100 WBC Auto (Bld) 3.8 % Normal [facility] Comment on above: Order Comment: CALL [address] tel. [phone], called hgb to ramila oseguera rn on 1w by scbHematology results called to and read back by ramila june on 1w, :44, by BONSA Neutrophils Auto #/vol (Bld) 2.7 10*3/uL Normal 1.4-6. 5 [facility] Comment on above: Order Comment: CALL [facility] tel. [phone], called hgb to ramila oseguera rn on 1w by scbHematology results called to and read back by ramila june on 1w, :44, by BONSA Neutrophils/100 WBC Auto (Bld) 74.0 % Normal [facility] Comment on above: Order Comment: CALL [facility] tel. [phone], called hgb to ramila oseguera rn on 1w by scbHematology results called to and read back by ramila june on 1w, :44, by BONSA Platelet Slide Review Decreased Normal [facility] Comment on above: Order Comment: CALL [address] tel. [phone], called hgb to ramila oseguera rn on 1w by scbHematology results called to and read back by ramila june on 1w, :44, by RAYSHAWN Poikilocytosis 1+ Normal [facility] Comment on above: Order Comment: CALL [facility] tel. [phone], called hgb to ramila oseguera rn on 1w by scbHematology results called to and read back by ramila june on 1w, :44, by BONSA Basophils Auto #/vol (Bld) 0.0 10*3/uL Normal 0.0-0.2 [facility] Comment on above: Order Comment: CALL [address] tel. [phone], called hgb to ramila oseguera rn on 1w by scbHematology results called to and read back by ramila june on 1w, :44, by BONSA Basophils/100 WBC Auto (Bld) 1.0 % Normal [facility] Comment on above: Order Comment: CALL [address] tel. [phone], called hgb to ramila oseguera rn on 1w by scbHematology results called to and read back by ramila june on 1w, :44, by BONSA Eosinophils Auto #/vol (Bld) 0.0 10*3/uL Normal 0.0-0. 7 [facility] Comment on above: Order Comment: CALL [facility] 1 tel. [phone], called hgb to ramila oseguera rn on 1w by scbHematology results called to and read back by ramila june on 1w, :44, by BONSA Eosinophils/100 WBC Auto (Bld) 1.1 % Normal [facility] Comment on above: Order Comment: CALL [facility] tel. [phone], called hgb to ramila oseguera rn on 1w by scbHematology results called to and read back by ramila oseguera on 1w, :44, by BONSA Erythrocyte distribution width Auto Ratio (RBC) 18.8 % Critically high 11.5-14.5 [facility] Comment on above: Order Comment: CALL [facility] tel. [phone], called hgb to ramila oseguera rn on 1w by scbHematology results called to and read back by ramila oseguera on 1w, :44, by BONSA Hematocrit Auto Volume Fract ion (Bld) 21.1 % Low 37.0-47.0 [facility] Comment on above: Order Comment: CALL [facility] tel. [phone], called hgb to ramila oseguera rn on 1w by scbHematology results called to and read back by ramila oseguera on 1w, :44, by BONSA Hemoglobin mass conc (Bld) 6.9 g/dL Critically low 12.0- 16.0 [facility] Comment on above: Order Comment: CALL [address] tel. [phone], called hgb to ramila oseguera rn on 1w by scbHematology results called to and read back by ramila oseguera on 1w, :44, by BONSA Result Comment: call ed hgb to ramila june on 1w / scb MCH Auto Entitic mass (RBC) 26.5 pg Low 27.0-31. 3 [facility] Comment on above: Order Comment: CALL [facility] tel. [phone], called hgb to ramila oseguera rn on 1w by scbHematology results called to and read back by ramila oseguera on 1w, :44, by BONSA MCHC Auto mass conc (RBC) 32.8 % Low 33.0-37.0 [facility] Comment on above: Order Comment: CALL [facility] tel. [phone], called hgb to ramila oseguera rn on 1w by scbHematology results called to and read back by ramila oseguera on 1w, :44, by BONSA MCV Auto Entitic volume (RBC) 80.9 fL Low 82.0-1 00.0 [facility] Comment on above: Order Comment: CALL [facility] LC1W tel. [phone], called hgb to ramila oseguera rn on 1w by scbHematology results called to and read back by ramila oseguera on 1w, 12/27/201706:44, by BONSA Platelets Auto #/vol (Bld) 122 10*3/uL Low 130-400 [facility] Comment on above: Order Comment: CALL [facility] 1W tel. [phone], called hgb to ramila oseguera rn on 1w by scbHematology results called to and read back by ramila oseguera on 1w, 12/27/201706:44, by BONSA RBC Auto #/vol (Bld) 2.61 10*6/uL Low 4.20-5.40 [facility] Comment on above: Order Comment: CALL [facility] 1W tel. [phone], called hgb to ramila oseguera rn on 1w by scbHematology results called to and read back by ramila oseguera on 1w, 12/27/201706:44, by BONSA WBC Auto #/vol (Bld) 3.6 10*3/uL Low 4.8-10.8 [facility] Comment on above: Order Comment: CALL [facility] 1W tel. [phone], called hgb to ramila oseguera rn on 1w by scbHematology results called to and read back by ramila oseguera on 1w, 12/27/201706:44, by RAYSHAWN Comprehensive Metabolic Pane l reflex Mgon 12-27-2017 Albumin mass conc 2.4 g/dL Low 3.9-4.9 [facility] ALP enzyme act/vol 40 U/L Normal 40-130 [facility] ALT enzyme act/vol U/L Normal 0-33 [facility] Anion gap 3 molar conc 11 mmol/L Normal 7-13 [facility] AST enzyme act/vol 6 U/L Normal 0-35 [facility] Bilirubin mass conc mg/dL Normal 0.0-1.2 [facility] Calcium mass conc 7.7 mg/dL Low 8.6-10.2 [facility] Chloride molar conc 110 mmol/L Critically high 98-107 [facility] CO2 molar conc 20 mmol/L Low 22-29 [facility] Creatinine mass conc 0.64 mg/dL Normal 0.50-0.90 [facility] GFR/1.73 sq M predicted among blacks MDRD vol rate/area (S/P/Bld) mL/min/{1.73_m2} Normal >60 [facility] Comment on above: Result Comment: >60 mL/min/1.73m2 EGFR, calc. for ages 18 and older using theMDRD formula (not corrected for weight), is valid for stablerenal function. GFR/1.73 sq M.predicted MDRD vol rate/area mL/min/{1.73_m2} Normal >60 [facility] Comment on above: Result Comment: >60 mL/min/1.73m2 EGFR, calc. for ages 18 and older using theMDRD formula (not corrected for weight), is valid for stablerenal function. Globulin Calculated mass conc (S) 3.9 g/dL Critically high 2.3-3.5 [facility] Glucose mass conc 115 mg/dL Critically high 74-109 [facility] Potassium reflex Mg 3.8 mEq/L Normal 3.5-5.1 [facility] Protein mass conc 6.3 g/dL Low 6.4-8.1 [facility] Sodium molar conc 141 mmol/L Normal 132-144 [facility] Urea nitrogen mass conc 10 mg/dL Normal 6-20 [facility] Ferritinon 12-27-2017 Ferritin [Mass/volume] in Serum or Plasma 152.3 ng/mL Critically high 13.0-150.0 [facility] Iron Profileon 12-27-2017 % Saturation 8 % Low 11-46 [facility] Iron Binding Capacity 132 ug/dL Low 178-450 [facility] Iron mass conc 11 ug/dL Low 37-145 [facility] RBC LRon 12-27-2017 RBC Auto #/vol (Bld) PATIENT: ISABEL Jackson LO C: [id number]# : [id number] : 1985 SEX: FORDERED BY: KIAH NEENA ORDERED : 12/27/2017 07:06 COLLECTED: 12/27/2017 07:20ORDER : [id number] RECEIVED : 12/27/2017 07:27 ---TEST NAME RESULT UNITS RANGES ABN FL STRBC LR [id number] RBC LR W0 F = Normal [facility] Retic Automatedon 12-27-2017 Hematocrit Auto Volume Fraction (Bld) 21.1 % Low 37.0-47.0 [facility] Retic Abs 0.066 m/cumm Normal 0.022-0.11 [facility] Reticulocyte Count Automated 2.5 % Critically high 0.6-2.2 [facility] Type and Screen Capture 3 sc rn cellon 12-27-2017 Type and Screen Capture 3 scrn cell PATIENT: ISABEL Jackson C: [id number]# : [id number] : 1985 SEX: FORDERED BY: KIAH NEENA ORDERED : 12/27/2017 07:06 COLLECTED: 12/27/2017 07:20ORDER : [id number] RECEIVED : 12/27/2017 07:27 ---TEST NAME RESULT UNITS RANGES ABN FL STABORH Capture A POS FAntibody 3 Cell Scrn Captu NEG F @12/27/17 10:58 by BEBETO: ANTIBODY SCREEN PERFORMED ON BACKUP CAPTURE. ----- Normal [facility] Bacterial susceptibility fox el by Elvia 12-26-2017 Bacterial susceptibility panel by Minimum inhibitory concentration (ISRA) ORDERED BY: GALLITO POLANCO: Sputum Expectorated COLLECTED: 12/26/17 14:45ANTIBIOTICS AT RADHA.: RECEIVED : 12/29/17 12:46Gram Stain Direct FINAL 12/29/17 16:19 Moderate WBC's Few epithelial cells Few Yeast with pseudohyphaeCulture, Respiratory FINAL 12/31/17 10:36 Light growth Serratia marcescens Moderate growth Yeast No further workup ___ S. marces ANTIBIOTICS ISRA Interp Amo xicillin/Clavulanate >=32 R Cefepime <=1 S Ceftriaxone <=1 S Ciprofloxacin <=0.25 S Gentamicin <=1 S Trimethoprim/Sulfamethoxazole <=20 S S=SUSCEPTIBLE I=INTERMEDIATE R=RESISTANT Normal [facility] CT CHEST W CONTRASTon 2017 CT CHEST W CONTRAST EXAMINATION: CT SCAN CHESTCLINICAL HISTORY: Abnormal chest x-rayCOMPARISON:TECHNIQUE: Multiple serial axial images from the base neck through the upper abdomen with both sagittal coronal reconstruction was performed following the intravenous menstruation of 100 mL of Isovue-370.FINDINGS: There are several scattered lobulated nodular densities, masses within the apex of the left upper lobe ranging in size from 6 to 9 mm.There is an area of coalescent groundglass infiltrate within the base of the left upper lobe. This could BE postobstructive as there is narrowing of the proximal bronchi with left perihilar fullness, soft tissue density.There is a noncalcified nodule at the superior posterior aspect of the left lower lobe measuring 5 mm. There is areas of atelectasis, scarring in the left lower lobe.There is noncalcified nodule within the right apex measuring 7 mm. There is right perihilar soft tissue density, fullness extending inferiorly into the superior medial aspect of the right lower lobe. There is narrowing of the bronchi and there is associated cavitary component. This is best appreciated on series 2 image 91. The soft tissue component which is pleural-based measures approximately 3.0 cm. There is also areas of scarring, fibrosis extending from the right perihilar region into the inferolateral aspect of the right lower lobe. There is associated scarring and fibrosis within the right lower lobe with small cavitary component.No pleural effusions. No pneumothoraces.There is periaortic pretracheal right and left and subcarinal soft tissue density, adenopathy.There is trace pericardial effusion.The [id number] the gallbladder surgically absent.IMPRESSION: FINDINGS DESCRIBED ABOVE. CONSIDER BOTH TYPICAL AND ATYPICAL INFECTIOUS ETIOLOGY WELL POSSIBLE ACUTE ON CHRONIC POSTINFECTIOUS CHANGES. UNDERLYING MALIGNANCY IS NOT EXCLUDED. WILL NEED FURTHER EVALUATION.THERE IS MEDIASTINAL ADENOPATHY.All CT scans at this facility use dose modulation, iterative reconstruction, and/or weight based dosing when appropriate to reduce radiation dose to as low as reasonably achievable.Interpreted by:FRANCO Santamariaigned by:Gordon Hinton MD12/26/17inal result Normal [facility] Culture, Blood 2on 8 Culture, Blood 2 OR DERED BY: GALLITO POLANCO: Blood COLLECTED: 12/26/17 15:49ANTIBIOTICS AT RADHA.: RECEIVED : 12/26/17 15:56Culture, Blood 2 FINAL 12/31/17 16:15 No growth after 5 days of incubation. Normal [facility] Culture, Respiratoryon 12-26 Culture, Respiratory O RDERED BY: GALLITO POLANCO: Sputum Expectorated COLLECTED: 12/26/17 14:45ANTIBIOTICS AT RADHA.: RECEIVED : 12/29/17 12:46Gram Stain Direct FINAL 12/29/17 16:19 Moderate WBC's Few epithelial cells Few Yeast with pseudohyphaeCulture, Respiratory INTERIM 12/30/17 11:53 Light growth Gram negative arminda ID and sensitivity to follow Moderate growth Yeast No further workup Normal [facility] Hepatitis C Antibodyon 12-26 Hepatitis C Antibody Interp REACTIVE Abnormal [facility] Comment on above: Order Comment: Colle ction has been rescheduled by SAUDE at 12/26/2017 14:59. Reason:patient refusing until she gets pain meds Influenza A and Bon 12-27-19 18 Influenza A Antigen Negative Normal Negative [facility] Influenza B Antigen Negative Normal Negative [facility] Bacterial susceptibility fox el by MICon 12-25-2017 Bacterial susceptibility panel by Minimum inhibitory concentration (ISRA) ORDERED BY: MARY ANN SNIDER: Blood Blood COLLECTED: 12/25/17 21:04ANTIBIOTICS AT RADHA.: RECEIVED : 12/25/17 21:04CALL [place] LOER tel. [phone],Blood Culture results called to and read back by Beena MASON, 12/26/2017 19:32, by MATNICulture, Blood FINAL 12/28/17 07:32 1 out of 2 blood cultures POSITIVE for Serratia marcescens S. marces ANTIBIOTICS ISRA Interp Amo xicillin/Clavulanate >=32 R Cefepime <=1 S Ceftriaxone <=1 S Ciprofloxacin <=0.25 S Gentamicin <=1 S Trimethoprim/Sulfamethoxazole <=20 S S=SUSCEPTIBLE I=INTERMEDIATE R=RESISTANT Normal [facility] CBC With Platelet and Differ entialon 12-25-2017 Basophils Auto #/vol (Bld) 0.0 10*3/uL Normal 0.0-0.2 [facility] Basophils/100 WBC Auto (Bld) 0.5 % Normal [facility] Eosinophils Auto #/vol (Bld) 0.0 10*3/uL Normal 0.0-0.7 [facility] Eosinophils/100 WBC Auto (Bld) 0.2 % Normal [facility] ital Erythrocyte distribution width Auto Ratio (RBC) 18.9 % Critically high 11.5-14.5 [facility] Hematocrit Auto Volume Fraction (Bld) 23.6 % Low 37.0-47.0 [facility] ital Hemoglobin mass conc (Bld) 8.0 g/dL Low 12.0-16.0 [facility] Hypochromia PRESENT Normal [facility] Lymphocytes Auto #/vol (Bld) 1.3 10*3/uL Normal 1.0-4.8 [facility] Lymphocytes/100 WBC Auto (Bld) 16.6 % Normal [facility] MCH Auto Entitic mass (RBC) 26.5 pg Low 27.0-31.3 [facility] MCHC Auto mass conc (RBC) 33.9 % Normal 33.0-37.0 [facility] MCV Auto Entitic volume (RBC) 78.1 fL Low 82.0-100.0 [facility] Monocytes Auto #/vol (Bld) 0.5 10*3/uL Normal 0.2-0.8 [facility] Monocytes/100 WBC Auto (Bld) 6.3 % Normal [facility] Neutrophils Auto #/vol (Bld) 6.2 10*3/uL Normal 1.4-6.5 [facility] ital Neutrophils/100 WBC Auto (Bld) 76.4 % Normal [facility] Platelets Auto #/vol (Bld) 178 10*3/uL Normal 130-400 [facility] RBC Auto #/vol (Bld) 3.02 10*6/uL Low 4.20-5.40 [facility] WBC Auto #/vol (Bld) 8.1 10*3/uL Normal 4.8-10.8 [facility] Comprehensive Metabolic Pane thanh 12-25-2017 Albumin mass conc 3.2 g/dL Low 3.9-4.9 [facility] ALP enzyme act/vol 39 U/L Low 40-130 [facility] ALT enzyme act/vol U/L Normal 0-33 [facility] Anion gap 3 molar conc 14 mmol/L Critically high 7-13 [facility] AST enzyme act/vol 10 U/L Normal 0-35 [facility] Bilirubin mass conc 0.6 mg/dL Normal 0.0-1.2 [facility] Calcium mass conc 8.7 mg/dL Normal 8.6-10.2 [facility] Chloride molar conc 94 mmol/L Low 98-107 [facility] CO2 molar conc 24 mmol/L Normal 22-29 [facility] Creatinine mass conc 0.68 mg/dL Normal 0.50-0.90 [facility] GFR/1.73 sq M predicted among blacks MDRD vol rate/area (S/P/Bld) mL/min/{1.73_m2} Normal >60 [facility] Comment on above: Result Comment: >60 mL/min/1.73m2 EGFR, calc. for ages 18 and older using theMDRD formula (not corrected for weight), is valid for stablerenal function. GFR/1.73 sq M.predicted MDRD vol rate/area mL/min/{1.73_m2} Normal >60 [facility] pital Comment on above: Result Comment: >60 mL/min/1.73m2 EGFR, calc. for ages 18 and older using theMDRD formula (not corrected for weight), is valid for stablerenal function. Globulin Calculated mass con c (S) 4.4 g/dL Critically high 2.3-3.5 [facility] ital Glucose mass conc 120 mg/dL Critically high 74-109 [facility] Potassium molar conc 4.2 mmol/L Normal 3.5-5.1 [facility] Protein mass conc 7.6 g/dL Normal 6.4-8.1 [facility] Sodium molar conc 132 mmol/L Normal 132-144 [facility] Urea nitrogen mass conc 7 mg/dL Normal 6-20 [facility] Creatine Kinaseon 12-25-2017 CK enzyme act/vol 19 U/L Normal 0-170 [facility] Culture, Blood 2on 8 Culture, Blood 2 OR DERED BY: FLOYD SNIDER: Blood COLLECTED: 12/25/17 21:04ANTIBIOTICS AT RADHA.: RECEIVED : 12/25/17 21:04Culture, Blood 2 FINAL 12/30/17 22:15 No growth after [address] of [address] [facility] Lactic Acidon 12-25-2017 Lactate molar conc 2.1 mmol/L Normal 0.5-2.2 [facility] Prothrombin Timeon 8 INR Coag RelTime (PPP) 1.2 {INR} Normal [facility] Comment on above: Result Comment: Dimitrios mmended INR therapeutic ranges for oral anticoagulanttherapyProphylaxis/treatment of: INR Venous Thrombosis, Pulmonary Embolism 2.0-3Prevention of Systemic Embolism from: Atrial Fibrillation 2.0-3.0 Myocardial Infarction 2.0-3.0 Mechanical Prosthetics Heart Valves 2.5-3.5 Recurrent Systemic Embolism 2.5-3.5Guidelines for patients with coagulopathy, e.g. liver disease:Use the Protime resulted in seconds. Mild 12.9-17.0 sec Moderate 17.1-22.6 sec Severe G.T. 22.6 sec Prothrombin time (PT) Coag time (PPP) 11.8 s Normal 9.6-12.3 [facility] Troponinon 12-25-2017 Troponin I.cardiac mass conc ng/mL Normal 0.000-[address] [facility] Comment on above: Result Comment: Meth odology by Troponin T. UR Drug Screen Rapidon 12-25 Drug Screen Comment see below Normal [facility] Comment on above: Result Comment: This method is a screening test to detect only these drugclasses as part of a medical workup. Confirmatory testingby another method should be ordered if clinically indicated. UR Amphetamines Rapid Screen Negative Normal Negativ e < [facility] Comment on above: Result Comment: Effe ctive: 08/30/17Methodology and/or Reference Range-Cutoff has changed. UR Barbiturates Rapid Screen Negative Normal Negativ e < [facility] Comment on above: Result Comment: Effe ctive: 08/30/17Methodology and/or Reference Range-Cutoff has changed. UR Benzo Rapid Screen Negative Normal Negative < [facility] Comment on above: Result Comment: Effe ctive: 08/30/17Methodology and/or Reference Range-Cutoff has changed. UR Cannabinoids Rapid Screen Negative Normal Negativ e < [facility] UR Cocaine Rapid Screen Negative Normal Negative < [facility] Comment on above: Result Comment: Effe ctive: 08/30/17Methodology and/or Reference Range-Cutoff has changed. UR Opiates Rapid Screen Negative Normal Negative < [facility] Comment on above: Result Comment: Effe ctive: 08/30/17Methodology and/or Reference Range-Cutoff has changed. UR PCP Rapid Screen Negative Normal Negative < [facility] UR Tricyclics Rapid Screen - Rapid Negative Normal N egative < [facility] Comment on above: Result Comment: Effe ctive: 08/30/17Methodology and/or Reference Range-Cutoff has changed. UR HCG Qualitativeon 018 HCG.beta subunit ( test) Ql (U) Negative Normal Detects HC [facility] ital Urinalysis, reflex to cultur eugenia 12-25-2017 Bilirubin Ql (U) Negative Normal Negative [facility] Clarity Nom (U) Clear Normal Clear [facility] Color Nom (U) Yellow Normal Straw/[place] [facility] Glucose Ql (U) Negative Normal Negative [facility] Hemoglobin Test strip Ql (U) Negative Normal Negative [facility] ital Ketones Ql (U) Negative Normal Negative [facility] Leukocyte esterase Test strip Ql (U) Negative Normal Negative [facility] Nitrite Test strip Ql (U) Negative Normal Negative [facility] pH Test strip (U) 7.0 [pH] Normal 5.0-9.0 [facility] Protein Test strip Ql (U) Negative Normal Negative [facility] Specific gravity Relative Density (U) 1.015 Normal 1.005-1.03 [facility] Urine Reflexed to Culture Not Indicated Normal [facility] Urobilinogen Test strip Qn (U) 0.2 {Katy'U}/dL Normal < 2.0 [facility] Vital Signs Date Time Vital Sign Value Performing Clinician Faci lity 12-25-2017 19:30-0500 Body mass index (BMI) [Ratio] IVNA JIM [facility] Encounters Encounter Date Encounter Type Care Provider Facility Start: 01-25-2023 End: 01-25-2023 ambulatory EDUAR PADILLA Not Available Start: 01-19-2023 End: 01-19-2023 ambulatory EDUAR PADILLA Not Available Start: 01-05-2023 End: 01-05-2023 ambulatory EDUAR PADILLA Not Available Start: 12-29-2022 End: 12-29-2022 ambulatory JESSICA GARG Not Available Start: 07-14-2022 End: 07-15-2022 ambulatory Liliane Devries PA-C [facility] Start: 07-06-2022 End: 07-07-2022 ambulatory Liliane Devries PA-C [facility] Start: 06-26-2022 End: 06-27-[address] JESSICA GARG . Facility:[facility] Start: 06-16-2022 End: 06-16-2022 ambulatory SHAIKH Magali GARLAND Facility:[facility] Start: 06-11-2022 End: 06-12-[address] JESSICA GARG . Facility:[facility] Start: 05-28-2022 End: 05-29-2022 ambulatory Suresh Broderick MD [facility] Start: 04-22-2022 End: 04-22-2022 ambulatory KISER Magali EMILIANA Facility:[facility] Start: 08-11-2021 End: 08-12-2021 ambulatory SHAIKH Magali GARLAND Facility:[facility] Start: 04-24-2019 End: 04-24-2019 Emergency department patient visit UNKNOWN PROVIDER Facility:[facility] Start: 04-05-2018 End: 04-05-2018 Emergency department patient visit NO FAMILY DOCTOR NO FAMILY DOCTOR Facility:[facility] Start: 02-01-2018 End: 02-02-2018 Patient encounter procedure [facility] Start: 01-31-2018 End: 02-01-2018 Patient encounter procedure [facility] Start: 01-30-2018 End: 01-31-2018 Patient encounter procedure [facility] Start: 01-29-2018 End: 01-30-2018 Patient encounter procedure [facility] Start: 01-28-2018 End: 01-29-2018 Patient encounter procedure [facility] Start: 01-27-2018 End: 01-28-2018 Patient encounter procedure [facility] Start: 01-26-2018 End: 01-27-2018 Patient encounter procedure [facility] Start: 01-25-2018 End: 01-26-2018 Patient encounter procedure [facility] Start: 01-24-2018 End: 01-25-2018 Patient encounter procedure TINA A DIANNE [facility] Start: 01-23-2018 End: 01-24-2018 [facility]: 01-22-2018 End: 01-23-2018 [facility] Start: 01-21-2018 End: 01-22-2018 [facility] Start: 01-20-2018 End: 01-21-2018 [facility] Start: 01-19-2018 End: 01-20-2018 [facility] Start: 01-18-2018 End: 01-19-2018 [facility] Start: 01-17-2018 End: 01-18-2018 [facility] Start: 01-16-2018 End: 01-17-2018 [facility] Start: 01-15-2018 End: 01-16-2018 [facility] Start: 01-14-2018 End: 01-15-2018 [facility] Start: 01-13-2018 End: 01-14-2018 [facility] Start: 01-12-2018 End: 01-13-2018 [facility] Start: 01-11-2018 End: 01-12-2018 [facility] Start: 01-10-2018 End: 01-11-2018 [facility] Start: 01-09-2018 End: 01-10-2018 [facility] Start: 01-08-2018 End: 01-09-2018 [facility] Start: 01-07-2018 End: 01-08-2018 Patient encounter procedure TINA A [facility] Start: 01-06-2018 End: 01-07-2018 [facility] Start: 01-05-2018 End: 01-06-2018 Patient encounter procedure TINA DEAN [facility] Start: 12-26-2017 End: 01-04-2018 Evaluation and management of inpatient VEROREG DALTON [facility] Start: 12-25-2017 End: 12-25-2017 Emergency department patient visit IVAN FERNANDEZ [facility] Procedures Date Procedure Procedure Detail Performing Clinician Start: 04-24-2019 DISCHARGE PATIENT UNKNO WN PROVIDER Start: 02-01-2018 REMOVE PICC IVAN TO BEY Start: 02-01-2018 Basic metabolic pane l calcium total IVAN JIM Start: 02-01-2018 Blood count complete automated IVAN JIM Start: 01-25-2018 Basic metabolic pane l calcium total IVAN JIM Start: 01-25-2018 Blood count complete auto&auto difrntl wbc IVAN FERNANDEZ Start: 01-21-2018 Basic metabolic pane l calcium total IVAN JIM Start: 01-21-2018 Blood count complete automated IVAN FERNANDEZ Start: 01-11-2018 Basic metabolic pane l calcium total IVAN FERNANDEZ Start: 01-11-2018 Blood count complete auto&auto difrntl wbc IVAN FERNANDEZ Start: 01-04-2018 INCENTIVE SPIROMETRY RT VERO BAGHDY Start: 01-04-2018 PULSE OXIMETRY, CONTINUOUS VERO BAGHDY Start: 01-04-2018 DISCHARGE PATIENT NAVNEET DALTON Start: 01-04-2018 NURSING COMMUNICATION Y ACOUB BAGHDY Start: 01-04-2018 INCENTIVE SPIROMETRY RT VERO BAGHDY Start: 01-04-2018 Basic metabolic pane l calcium total VERO BAGHDY Start: 01-04-2018 INCENTIVE SPIROMETRY RT VERO BAGHDY Start: 01-04-2018 INITIATE OXYGEN THER APY PROTOCOL VERO BAGHDY Start: 01-04-2018 PULSE OXIMETRY, CONTINUOUS VERO BAGHDY Start: 01-04-2018 INCENTIVE SPIROMETRY RT VERO BAGHDY Start: 01-04-2018 Blood count complete auto&auto difrntl wbc VERO BAGHDY Start: 01-04-2018 INCENTIVE SPIROMETRY RT VERO BAGHDY Start: 01-04-2018 INCENTIVE SPIROMETRY RT VERO BAGHDY Start: 01-04-2018 Culture bacterial bl ood aerobic w/id isolates VERO BAGHDY Start: 01-04-2018 PULSE OXIMETRY, CONTINUOUS VERO Start: 01-04-2018 INCENTIVE SPIROMETRY RT VERO Start: 01-04-2018 INCENTIVE SPIROMETRY RT VERO Start: 01-04-2018 PULSE OXIMETRY, CONTINUOUS VERO Start: 01-04-2018 INCENTIVE SPIROMETRY RT VERO Start: 01-04-2018 INCENTIVE SPIROMETRY RT VERO Start: 01-03-2018 INCENTIVE SPIROMETRY RT VERO Start: 01-03-2018 PULSE OXIMETRY, CONTINUOUS VERO Start: 01-03-2018 CULTURE BLOOD #1 Start: 01-03-2018 Microscopic examinat ion of blood, culture VERO Start: 01-03-2018 INCENTIVE SPIROMETRY RT VERO Start: 01-03-2018 INCENTIVE SPIROMETRY RT Start: 01-03-2018 PULSE OXIMETRY, CONTINUOUS VERO Start: 01-03-2018 INCENTIVE SPIROMETRY RT VERO Start: 01-03-2018 INCENTIVE SPIROMETRY RT VERO Start: 01-03-2018 PULSE OXIMETRY, CONTINUOUS VERO Start: 01-03-2018 INCENTIVE SPIROMETRY RT VERO Start: 01-03-2018 NURSING COMMUNICATION Y [facility] Start: 01-03-2018 INCENTIVE SPIROMETRY RT Start: 01-03-2018 INCENTIVE SPIROMETRY RT Start: 01-03-2018 INITIATE OXYGEN THER APY PROTOCOL Start: 01-03-2018 PULSE OXIMETRY, CONTINUOUS VERO Start: 01-03-2018 INCENTIVE SPIROMETRY RT VERO Start: 01-03-2018 INCENTIVE SPIROMETRY RT VERO Start: 01-03-2018 INCENTIVE SPIROMETRY RT VERO Start: 01-03-2018 PULSE OXIMETRY, CONTINUOUS VERO Start: 01-03-2018 INCENTIVE SPIROMETRY RT VERO Start: 01-03-2018 INCENTIVE SPIROMETRY RT VERO Start: 01-03-2018 PULSE OXIMETRY, CONTINUOUS VERO Start: 01-03-2018 INCENTIVE SPIROMETRY RT VERO Start: 01-02-2018 INCENTIVE SPIROMETRY RT VERO Start: 01-02-2018 PULSE OXIMETRY, CONTINUOUS VERO Start: 01-02-2018 INCENTIVE SPIROMETRY RT Start: 01-02-2018 INCENTIVE SPIROMETRY RT Start: 01-02-2018 PULSE OXIMETRY, CONTINUOUS VERO Start: 01-02-2018 INCENTIVE SPIROMETRY RT VERO Start: 01-02-2018 INCENTIVE SPIROMETRY RT VERO Start: 01-02-2018 PULSE OXIMETRY, CONTINUOUS VERO Start: 01-02-2018 INCENTIVE SPIROMETRY RT VERO Start: 01-02-2018 INCENTIVE SPIROMETRY RT VERO Start: 01-02-2018 Drug tst prsmv instr mnt chem analyzers pr date Start: 01-02-2018 INCENTIVE SPIROMETRY RT VERO Start: 01-02-2018 INITIATE OXYGEN THER APY PROTOCOL Start: 01-02-2018 PULSE OXIMETRY, CONTINUOUS VERO Start: 01-02-2018 INCENTIVE SPIROMETRY RT VERO Start: 01-02-2018 Blood count complete auto&auto difrntl wbc Start: 01-02-2018 INCENTIVE SPIROMETRY RT VERO Start: 01-02-2018 PULSE OXIMETRY, CONTINUOUS Start: 01-02-2018 INCENTIVE SPIROMETRY RT VERO Start: 01-02-2018 INCENTIVE SPIROMETRY RT Start: 01-02-2018 PULSE OXIMETRY, CONTINUOUS VERO Start: 01-02-2018 INCENTIVE SPIROMETRY RT Start: 01-01-2018 INCENTIVE SPIROMETRY RT Start: 01-01-2018 PULSE OXIMETRY, CONTINUOUS VERO Start: 01-01-2018 INCENTIVE SPIROMETRY RT VERO Start: 01-01-2018 INCENTIVE SPIROMETRY RT VERO Start: 01-01-2018 INCENTIVE SPIROMETRY RT VERO Start: 01-01-2018 PULSE OXIMETRY, CONTINUOUS VERO Start: 01-01-2018 INCENTIVE SPIROMETRY RT VERO Start: 01-01-2018 NURSING COMMUNICATION Y ACNIR Start: 01-01-2018 INCENTIVE SPIROMETRY RT VERO Start: 01-01-2018 PULSE OXIMETRY, CONTINUOUS VERO Start: 01-01-2018 INCENTIVE SPIROMETRY RT Start: 01-01-2018 INCENTIVE SPIROMETRY RT VERO Start: 01-01-2018 INITIATE OXYGEN THER APY PROTOCOL Start: 01-01-2018 PULSE OXIMETRY, CONTINUOUS VERO Start: 01-01-2018 INCENTIVE SPIROMETRY RT Start: 01-01-2018 Blood count complete auto&auto difrntl wbc Start: 01-01-2018 INCENTIVE SPIROMETRY RT Start: 01-01-2018 INCENTIVE SPIROMETRY RT Start: 01-01-2018 PULSE OXIMETRY, CONTINUOUS Start: 01-01-2018 INCENTIVE SPIROMETRY RT Start: 01-01-2018 INCENTIVE SPIROMETRY RT VERO Start: 01-01-2018 PULSE OXIMETRY, CONTINUOUS Start: 01-01-2018 INCENTIVE SPIROMETRY RT Start: 01-01-2018 INCENTIVE SPIROMETRY RT Start: 12-31-2017 INCENTIVE SPIROMETRY RT Start: 12-31-2017 PULSE OXIMETRY, CONTINUOUS Start: 12-31-2017 INCENTIVE SPIROMETRY RT Start: 12-31-2017 Fluoro central venou s access dev placement Start: 12-31-2017 Insj prph cvc w/o house bq port/mail list processor age 5 yr/> Start: 12-31-2017 Us vasc access sits vsl patency ndl entry Start: 12-31-2017 INCENTIVE SPIROMETRY RT Start: 12-31-2017 INCENTIVE SPIROMETRY RT Start: 12-31-2017 PULSE OXIMETRY, CONTINUOUS Start: 12-31-2017 INCENTIVE SPIROMETRY RT VERO Start: 12-31-2017 INCENTIVE SPIROMETRY RT VERO Start: 12-31-2017 PULSE OXIMETRY, CONTINUOUS VERO BAGHDY Start: 12-31-2017 INCENTIVE SPIROMETRY RT VERO BAGHDY Start: 12-31-2017 INSERT PICC LINE VERO BAG Start: 12-31-2017 MISCELLANEOUS NURSIN G CARE ORDER (SPECIFY) VERO BAGHDY Start: 12-31-2017 NOTIFY PHYSICIAN (SPECIFY) VERO BAGHD Start: 12-31-2017 NURSING COMMUNICATION Y ACOUB BAG Start: 12-31-2017 INCENTIVE SPIROMETRY RT VERO BAGHD Start: 12-31-2017 INCENTIVE SPIROMETRY RT VERO BAGHD Start: 12-31-2017 INITIATE OXYGEN THER APY PROTOCOL VERO Start: 12-31-2017 PULSE OXIMETRY, CONTINUOUS VERO BAGHDY Start: 12-31-2017 Blood count complete auto&auto difrntl wbc VERO Start: 12-31-2017 INCENTIVE SPIROMETRY RT VERO HD Start: 12-31-2017 INCENTIVE SPIROMETRY RT VERO Start: 12-31-2017 PULSE OXIMETRY, CONTINUOUS VERO BAGHDY Start: 12-31-2017 INCENTIVE SPIROMETRY RT VERO Start: 12-31-2017 INCENTIVE SPIROMETRY RT VERO BAGHD Start: 12-31-2017 Culture bacterial bl ood aerobic w/id isolates VERO Start: 12-31-2017 CULTURE BLOOD #1 VERO Start: 12-31-2017 Microscopic examinat ion of blood, culture VERO BAGHD Start: 12-31-2017 INCENTIVE SPIROMETRY RT VERO BAGHD Start: 12-31-2017 PULSE OXIMETRY, CONTINUOUS VERO BAGHDY Start: 12-31-2017 INCENTIVE SPIROMETRY RT VERO Start: 12-30-2017 INCENTIVE SPIROMETRY RT VERO BAGHD Start: 12-30-2017 PULSE OXIMETRY, CONTINUOUS VERO BAGHDY Start: 12-30-2017 INCENTIVE SPIROMETRY RT VERO HD Start: 12-30-2017 INCENTIVE SPIROMETRY RT VERO BAGHDY Start: 12-30-2017 PULSE OXIMETRY, CONTINUOUS VERO BAGHDY Start: 12-30-2017 INCENTIVE SPIROMETRY RT VERO BAGHD Start: 12-30-2017 INCENTIVE SPIROMETRY RT VERO Start: 12-30-2017 INCENTIVE SPIROMETRY RT VERO Start: 12-30-2017 INCENTIVE SPIROMETRY RT VERO Start: 12-30-2017 PULSE OXIMETRY, CONTINUOUS VERO Start: 12-30-2017 INCENTIVE SPIROMETRY RT VERO Start: 12-30-2017 NURSING COMMUNICATION Y AC Start: 12-30-2017 Blood count complete auto&auto difrntl wbc VERO Start: 12-30-2017 Comprehensive metabolic panel VERO Start: 12-30-2017 INCENTIVE SPIROMETRY RT VERO Start: 12-30-2017 Ct maxillofacial w/o contrast material Start: 12-30-2017 INITIATE OXYGEN THER APY PROTOCOL Start: 12-30-2017 PULSE OXIMETRY, CONTINUOUS Start: 12-30-2017 INCENTIVE SPIROMETRY RT Start: 12-30-2017 INCENTIVE SPIROMETRY RT Start: 12-30-2017 INCENTIVE SPIROMETRY RT VERO Start: 12-30-2017 PULSE OXIMETRY, CONTINUOUS VERO Start: 12-30-2017 INCENTIVE SPIROMETRY RT Start: 12-30-2017 INCENTIVE SPIROMETRY RT Start: 12-30-2017 PULSE OXIMETRY, CONTINUOUS VERO Start: 12-30-2017 INCENTIVE SPIROMETRY RT Start: 12-29-2017 INCENTIVE SPIROMETRY RT Start: 12-29-2017 PULSE OXIMETRY, CONTINUOUS VERO Start: 12-29-2017 INCENTIVE SPIROMETRY RT VERO Start: 12-29-2017 INCENTIVE SPIROMETRY RT VERO Start: 12-29-2017 DIET GENERAL VERO Start: 12-29-2017 PULSE OXIMETRY, CONTINUOUS VERO Start: 12-29-2017 INCENTIVE SPIROMETRY RT VERO Start: 12-29-2017 ALTAGRACIA (VAGINAL, RESPIRATORY) VERO Start: 12-29-2017 AFB STAIN VERO BAG Start: 12-29-2017 Smr prim src fluores cent&/afs bct fngi parasit VERO BAGHDY Start: 12-29-2017 ACID FAST CULTURE WITH SMEAR VERO BAGHDY Start: 12-29-2017 Cell count misc body fluids w/differential count VERO BAGHDY Start: 12-29-2017 FUNGUS CULTURE VERO B AGHDY Start: 12-29-2017 Iadna respiratry pro be & rev trnscr 02-08 target VERO BAGHDY Start: 12-29-2017 FLUORO FOR SURGICAL PROCEDURES VERO BAGHDY Start: 12-29-2017 IP CONSULT TO OTOLARYNGOLOGY VERO BAGHDY Start: 12-29-2017 Cul bact xcpt urine blood/stool aerobic isol VERO BAGHDY Start: 12-29-2017 INCENTIVE SPIROMETRY RT VERO BAGHDY Start: 12-29-2017 ACID FAST CULTURE WITH SMEAR VERO BAGHDY Start: 12-29-2017 INCENTIVE SPIROMETRY RT VERO BAGHDY Start: 12-29-2017 PULSE OXIMETRY, CONTINUOUS VERO BAGHDY Start: 12-29-2017 CYTOLOGY, NON-ELECTRICAL TECH/PROJECT MANAGER YACOU B BAGHDY Start: 12-29-2017 INCENTIVE SPIROMETRY RT VERO BAGHDY Start: 12-29-2017 INCENTIVE SPIROMETRY RT VERO BAGHDY Start: 12-29-2017 INITIATE OXYGEN THER APY PROTOCOL VERO BAGHDY Start: 12-29-2017 PULSE OXIMETRY, CONTINUOUS VERO BAGHDY Start: 12-29-2017 INCENTIVE SPIROMETRY RT VERO BAGHDY Start: 12-29-2017 Blood count complete automated VERO BAGHDY Start: 12-29-2017 Prothrombin time VERO BAGHDY Start: 12-29-2017 INCENTIVE SPIROMETRY RT VERO BAGHDY Start: 12-29-2017 INCENTIVE SPIROMETRY RT VERO BAGHDY Start: 12-29-2017 PULSE OXIMETRY, CONTINUOUS VERO BAGHDY Start: 12-29-2017 INCENTIVE SPIROMETRY RT VERO BAGHDY Start: 12-29-2017 IP CONSULT TO NAYA AL DEPENDENCY VERO BAGHDY Start: 12-29-2017 INCENTIVE SPIROMETRY RT VERO BAGHDY Start: 12-29-2017 PULSE OXIMETRY, CONTINUOUS VERO BAGHDY Start: 12-29-2017 INCENTIVE SPIROMETRY RT VERO BAGHDY Start: 12-28-2017 INCENTIVE SPIROMETRY RT VERO Start: 12-28-2017 PULSE OXIMETRY, CONTINUOUS VERO Start: 12-28-2017 INCENTIVE SPIROMETRY RT VERO Start: 12-28-2017 INCENTIVE SPIROMETRY RT VERO Start: 12-28-2017 INCENTIVE SPIROMETRY RT VERO Start: 12-28-2017 PULSE OXIMETRY, CONTINUOUS VERO Start: 12-28-2017 INCENTIVE SPIROMETRY RT VERO Start: 12-28-2017 INCENTIVE SPIROMETRY RT Start: 12-28-2017 PULSE OXIMETRY, CONTINUOUS Start: 12-28-2017 Blood count complete automated Start: 12-28-2017 INCENTIVE SPIROMETRY RT Start: 12-28-2017 INCENTIVE SPIROMETRY RT Start: 12-28-2017 Radiologic exam ches t single view Start: 12-28-2017 INCENTIVE SPIROMETRY RT Start: 12-28-2017 INITIATE OXYGEN THER APY PROTOCOL Start: 12-28-2017 PULSE OXIMETRY, CONTINUOUS Start: 12-28-2017 INCENTIVE SPIROMETRY RT Start: 12-28-2017 INCENTIVE SPIROMETRY RT Start: 12-28-2017 PULSE OXIMETRY, CONTINUOUS Start: 12-28-2017 INCENTIVE SPIROMETRY RT Start: 12-28-2017 INCENTIVE SPIROMETRY RT Start: 12-28-2017 FULL CODE VERO Start: 12-28-2017 NURSING COMMUNICATION Y NIR Start: 12-28-2017 PULSE OXIMETRY, CONTINUOUS Start: 12-28-2017 VERIFY INFORMED CONSENT Start: 12-28-2017 INCENTIVE SPIROMETRY RT Start: 12-28-2017 INCENTIVE SPIROMETRY RT VERO Start: 12-27-2017 INCENTIVE SPIROMETRY RT VERO Start: 12-27-2017 INCENTIVE SPIROMETRY RT VERO Start: 12-27-2017 AMBULATE PATIENT VERO Start: 12-27-2017 ASSESS GAG REFLEX WILLU B Start: 12-27-2017 INITIATE OXYGEN THER APY PROTOCOL VERO Start: 12-27-2017 TOBACCO CESSATION EDUCATION VERO Start: 12-27-2017 VITAL SIGNS VERO BAG Start: 12-27-2017 WOUND CARE VERO Start: 12-27-2017 ADVANCE DIET TOLE RATED (NURSING COMMUNICATION) VERO Start: 12-27-2017 INCENTIVE SPIROMETRY RT VERO Start: 12-27-2017 Echo transesophag r- t 2d w/prb img acquisj i&r VERO Start: 12-27-2017 INCENTIVE SPIROMETRY RT VERO Start: 12-27-2017 INCENTIVE SPIROMETRY RT VERO Start: 12-27-2017 IP CONSULT TO CARDIOLOGY VERO Start: 12-27-2017 IP CONSULT TO PAIN MANAGEMENT VERO Start: 12-27-2017 IP CONSULT TO INFECT IOUS DISEASES Start: 12-27-2017 INCENTIVE SPIROMETRY RT VERO Start: 12-27-2017 Echo tthrc r-t 2d w/ wom-mode compl spec&colr d VERO Start: 12-27-2017 INCENTIVE SPIROMETRY RT VERO Start: 12-27-2017 TTE w or wo fol wcon,Doppler Start: 12-27-2017 INCENTIVE SPIROMETRY RT VERO Start: 12-27-2017 PREPARE RBC (CROSSMATCH) VERO Start: 12-27-2017 TYPE AND SCREEN VERO Start: 12-27-2017 INCENTIVE SPIROMETRY RT VERO Start: 12-27-2017 Blood count complete auto&auto difrntl wbc VERO Start: 12-27-2017 Ferritin [Mass/volum e] in Serum or Plasma VERO Start: 12-27-2017 IRON AND TIBC VERO JAYNE GILBERT Start: 12-27-2017 RETICULOCYTES EVRO UNRULY Start: 12-27-2017 INCENTIVE SPIROMETRY RT VERO Start: 12-27-2017 INCENTIVE SPIROMETRY RT VERO BAGHDY Start: 12-27-2017 INCENTIVE SPIROMETRY RT VERO BAGHDY Start: 12-27-2017 INCENTIVE SPIROMETRY RT VERO BAGHDY Start: 12-27-2017 INCENTIVE SPIROMETRY RT VERO BAGHDY Start: 12-27-2017 INCENTIVE SPIROMETRY RT VERO BAGHDY Start: 12-27-2017 INCENTIVE SPIROMETRY RT VERO BAGHDY Start: 12-26-2017 INCENTIVE SPIROMETRY RT VERO BAGHDY Start: 12-26-2017 ACID FAST CULTURE WITH SMEAR VERO BAGHDY Start: 12-26-2017 INCENTIVE SPIROMETRY RT VERO BAGHDY Start: 12-26-2017 RAPID INFLUENZA A/B ANTIGENS VERO BAGHDY Start: 12-26-2017 ACID FAST CULTURE WITH SMEAR VERO BAGHDY Start: 12-26-2017 INCENTIVE SPIROMETRY RT VERO BAGHDY Start: 12-26-2017 Apolipoprotein each JEWEL OUB BAGHDY Start: 12-26-2017 Culture bacterial bl ood aerobic w/id isolates VERO BAGHDY Start: 12-26-2017 HEPATITIS B CORE ANT IBODY, TOTAL VERO BAGHDY Start: 12-26-2017 HEPATITIS C ANTIBODY YA COUB BAGHDY Start: 12-26-2017 HEPATITIS C RNA, QUANTITATIVE, PCR VERO BAGHDY Start: 12-26-2017 Tb cell mediated ant ign respnse gamma interferon VERO BAGHDY Start: 12-26-2017 TRANSFERRIN VERO BAG HDY Start: 12-26-2017 CONTACT ISOLATION YACOU B BAGHDY Start: 12-26-2017 IP CONSULT TO PULMONOLOGY VERO BAGHDY Start: 12-26-2017 EKG 12-LEAD VERO BAG HDY Start: 12-26-2017 ICE TO AFFECTED AREA YA COUB BAGHDY Start: 12-26-2017 Cul bact xcpt urine blood/stool aerobic isol VERO BAGHDY Start: 12-26-2017 NURSING SPUTUM COLLECTION VERO BAGHDY Start: 12-26-2017 PHYSICIAN COMMUNICATION ORDER VERO BAGHDY Start: 12-26-2017 Ct thorax w/contrast material VERO BAGHDY Start: 12-26-2017 OBTAIN MEDICAL RECORDS VERO BAGHDY Start: 12-26-2017 REASON FOR NO MECHAN ICAL VTE PROPHYLAXIS VERO BAGHDY Start: 12-26-2017 TOBACCO CESSATION EDUCATION VERO DALTON Start: 12-26-2017 VITAL SIGNS VERO JUAN Start: 12-26-2017 PATIENT STATUS (DIRECT) VERO DALTON Start: 12-25-2017 Culture bacterial bl ood aerobic w/id isolates IVAN FERNANDEZ Start: 12-25-2017 CULTURE BLOOD #1 TARA Jose JIM Start: 12-25-2017 Microscopic examinat ion of blood, culture IVAN JIM Start: 12-25-2017 URINE DRUG SCREEN, COMPREHENSIVE IVAN JIM Start: 12-25-2017 Urine test visual color cmprsn meths IVAN JIM Start: 12-25-2017 URINE RT REFLEX TO CULTURE IVAN JIM Start: 12-25-2017 CK IVAN TO BEY Start: 12-25-2017 Comprehensive metabolic panel IVAN JIM Start: 12-25-2017 LACTIC ACID, PLASMA TANIKA TEENA JIM Start: 12-25-2017 Prothrombin time TARA Jose JIM Start: 12-25-2017 TROPONIN IVAN TO BEY Start: 12-25-2017 Radiologic exam chest 2 views IVAN JIM Start: 12-25-2017 Blood count complete auto&auto difrntl wbc IVAN JIM Start: 12-25-2017 EKG 12-LEAD IVAN TO BEY Start: 12-25-2017 SALINE LOCK IV IVAN FERNANDEZ Payers Date Payer Category Payer Unknown 2018 Medicaid [id number] 2017 Medicaid ACUTE 04-15-2016 Medicaid [id number] 1985 Unknown [id number] 2.16.84 [id number] 1985 Unknown [id number] 2.16.8 [id number] 1985 Unknown [id number] 2.16. [id number] 1985 Unknown [id number] 2.16.84 [id number] 1985 Unknown [id number] 2.16.84 [id number] 1985 Unknown [id number] 2.16.84 [id number] 1985 Unknown [id number] 2.16.84 0.1.497647.3.579.2.593 1985 Unknown [id number] 2.16.84 0.1.889879.3.579.2.593 1985 Unknown [id number] 2.16. [id number] 1985 Unknown [id number] 2.16. [id number] 1985 Unknown [id number] 2.16. [id number] 1985 Unknown [id number] 2.16.840 .1.306418.3.579.2.1259 1985 Unknown [id number] 2.16.840 .[id number] 1985 Unknown [id number] 2.16.840 .[id number] 1985 Unknown [id number] 2.16.840. [id number] 02-15-1959 Unknown [id number] Self-pay Unknown [id number] 2.16.8 [id number] Summary Purpose Family History No Family History Records FoundNo Family History Records FoundNo Family History Records FoundNo Family History Records FoundNo Family History Records FoundNo Family History Records FoundNo Family History Records Found Advance Directives No Advanced Directives Records FoundNo Advanced Directives Records FoundNo Advanced Directives Records FoundNo Advanced Directives Records FoundNo Advanced Directives Records FoundNo Advanced Directives Records FoundNo Advanced Directives Records Found Additional Source Comments INFORMATION SOURCE (unrecogn ized section and content) DATE CREATED AUTHOR 02/04/2018 [facility] DATE CREATED AUTHOR AUTHOR'S ORGANIZ ATION 02/19/2018 [facility] DATE CREATED AUTHOR AUTHOR'S ORGANIZ ATION 05/02/2018 [facility] DATE CREATED AUTHOR AUTHOR'S ORGANIZ ATION 03/15/2021 [facility] DATE CREATED AUTHOR AUTHOR'S ORGANIZ ATION 06/29/2022 [facility] DATE CREATED AUTHOR AUTHOR'S ORGANIZ ATION 07/25/2022 [facility] DATE CREATED AUTHOR AUTHOR'S ORGANIZ ATION 01/27/2023 [facility] FOR RECORDS PERTAINING TO PATIENTS WHO ARE OR HAVE BEEN ENROLLED IN A CHEMICAL DEPENDENCY/SUBSTANCEABUSE PROGRAM, SOME INFORMATION MAY BE OMITTED. This clinical summary was aggregated from multiple sources. Caution should be exercised in using it in the provision of clinical care. This summary normalizes information from multiple sources, and as a consequence, information in this document may materially change the coding, format and clinical context of patient data. In addition, data may be omitted in some cases. CLINICAL DECISIONS SHOULD BE BASED ON THE PRIMARY CLINICAL RECORDS. [employer] [facility]. provides no warranty or guarantee of the accuracy or completeness of information in this document.
== END 2023-01-05 14:15 | disposition home or self-care (01) ==
LOC: US 07:29 → FBC 13:20
PROVIDERS: PCP Internal Medicine; Visit Provider Obstetrics & Gynecology
DX: O24.410 Gestational diabetes mellitus in pregnancy, diet controlled (principal); Z3A.36 36 weeks gestation of pregnancy
CPT/HCPCS: 76818; 87081

== ENCOUNTER 2023-01-05 20:14 | Outpatient (REF) | payer MEDICAID, SELFPAY | END 2023-01-05 20:15 | disposition home or self-care (01) | LOC: LAB 20:14 | PROVIDERS: PCP Internal Medicine; Visit Provider Physician Assistant | DX: Z34.93 Encounter for supervision of normal pregnancy, unspecified, third trimester (principal) | CPT/HCPCS: 87081 ==

== ENCOUNTER 2023-01-08 09:15 | Outpatient (OUT) | payer MEDICAID, SELFPAY ==
[2023-01-08 13:47] VITALS: BP 140/67; PULSE 93
== END 2023-01-08 14:15 | disposition home or self-care (01) ==
LOC: FBCO 09:16 → FBC 13:36
PROVIDERS: PCP Internal Medicine; Visit Provider Obstetrics & Gynecology
DX: O24.410 Gestational diabetes mellitus in pregnancy, diet controlled (principal); Z3A.00 Weeks of gestation of pregnancy not specified
CPT/HCPCS: 59025

== ENCOUNTER 2023-01-12 05:42 | Inpatient (IN) | payer MEDICAID, SELFPAY ==
[2023-01-12] VITALS (24 sets, daily range): BP systolic 54–138; BP diastolic 34–82; PULSE 85–104; RESP 13–31; TEMP 36.6–36.9; O2SAT 86–100
[2023-01-12] MEDS: 0.9 % SODIUM CHLORIDE 1,000 ML 1000 ML IV ×2 (06:16→07:45)
[2023-01-12 06:41] LABS: Basophils Percent Auto 0.4 % (0.2-2.0); Eosinophils Absolute Auto 0.1 10^3/uL (0.0-0.7); Eosinophils Percent Auto 0.7 % (0.9-7.0); Hematocrit 33.2 % (36.0-48.0); Hemoglobin 10.7 g/dL (12.0-16.0); Immature Granulocytes Abs Auto 0.06 10^3/uL (0.00-0.03); Immature Granulocytes Pct Auto 0.6 % (0.0-0.5); Lymphocytes Absolute Auto 1.3 10^3/uL (1.2-3.8); Lymphocytes Percent Auto 13.7 % (20.5-60.0); Mean Corpuscular HGB Conc 32.2 g/dL (29.9-35.2); Mean Corpuscular Hemoglobin 29.6 pg (26.7-34.0); Mean Corpuscular Volume 91.7 fL (81.0-99.0); Mean Platelet Volume 11.6 fL (9.5-13.5); Monocytes Absolute Auto 0.5 10^3/uL (0.3-0.8); Monocytes Percent Auto 5.5 % (1.7-12.0); Neutrophils Absolute Auto 7.5 10^3/uL (1.4-6.5); Neutrophils Percent Auto 79.1 % (43.0-75.0); Platelet Count 189 10^3/uL (150-450); Red Blood Count 3.62 10^6/uL (4.20-5.40); Red Cell Distribution Width 14.6 % (11.0-15.0); White Blood Count 9.5 10^3/uL (4.0-11.0)
[2023-01-12 06:54] LABS: Amphetamine Screen Urine NEGATIVE (NEGATIVE); Barbiturates Screen Urine NEGATIVE (NEGATIVE); Benzodiazepines Screen Urine NEGATIVE (NEGATIVE); Buprenorphine Screen Urine POSITIVE (NEGATIVE); Cannabinoid Screen Urine POSITIVE (NEGATIVE); Cocaine Screen Urine NEGATIVE (NEGATIVE); Methadone Screen Urine NEGATIVE (NEGATIVE); Methamphetamines Screen Urine NEGATIVE (NEGATIVE); Opiate Screen Urine NEGATIVE (NEGATIVE); Oxycodone Screen Urine NEGATIVE (NEGATIVE); Phencyclidine Screen Urine NEGATIVE (NEGATIVE); Tricyclic Antidepressant Urine NEGATIVE (NEGATIVE)
[2023-01-12] MEDS: CITRIC ACID/SODIUM CITRATE 30 ML SOLUTION ORACIT SHOHL'S SOLN PO (07:45)
[2023-01-12] MEDS: FAMOTIDINE/PF 20 MG/2 ML VIAL IV (07:45)
[2023-01-12] MEDS: CLINDAMYCIN PHOSPHATE/D5W 900 MG/50 ML PIGGYBACK 100 MG IV ×2 (08:03→14:15)
--- NOTE | 2023-01-12 09:28 | P.ON_ITS ---
Brief Operative Note Date of procedure: 01/12/23 Pre-op diagnosis: iup at 37wks, gdm, obesity, opioid use, prev c/s, hep c Post-op diagnosis: same as pre-op Procedure: NAME OF PROCEDURE: [ section ] PROCEDURE: Patient was taken back to the Operating Room where she was given a spinal anesthesia with Duramorph without difficulty. She was prepped and draped in the normal sterile fashion. A Pfannenstiel skin incision was then made 2 cm above the symphysis pubis and carried down to underlying rectus fascia using a Bovie. The fascia was incised in the midline and extended laterally using Shahid scissors. Two Yari clamps were placed on the superior aspect of the fascia and dissected off the underlying rectus muscles. The same was performed on the inferior aspect as well. The muscles were then in the midline. Per itoneum was identified and entered bluntly. The peritoneum was then extended superiorly and inferiorly with good visualization of the bladder. The bladder blade was inserted. A low transverse incision was made on the patient's uterus and extended laterally digitally. The was then delivered atraumatically after the bladder blade was removed in the breech position. The cord was clamped and cut. Cord blood was obtained. The infant was handed off to awaiting team. The patient's placenta was spontaneously delivered. The uterus was then exteriorized. The uterus was cleared of all clots and debris. The bladder blade was reinserted. The patient's uterine incision was closed using #0 Vicryl in a running lock fashion. Excellent hemostasis was assured. The uterus was then returned to the patient's abdomen. The patient's abdomen was copiously irrigated using warm saline. Peritoneal gutters were cleared of all clots and debris. Again excellent hemostasis was assured. The patient's peritoneum was closed using 3-0 Vicryl in a running fashion. The patient's fascia was closed using #0 Vicryl in a running fashion. The patient's skin was closed using 4-0 Vicryl subcuticularly. The patient tolerated the procedure well. Sponge, lap, and needle counts were correct x2. The patient was taken to the Recovery Room in stable condition. Anesthesia: spinal Surgeon: Pankaj Yanez Informatics Consultant: Promise Corona Estimated blood loss (mL): 600 Pathology: other (placenta) Condition: stable Disposition: PACU
--- NOTE | 2023-01-12 09:33 | PM.OBPRCCS ---
Procedure Pre-op/Post-op diagnoses: Pre-Op/Post-Op Diagnoses Operation Date: 01/12/23 07:30 <No data on this case meets the specified criteria> Procedure: Procedures Operation Date: 01/12/23 07:30 Actual Procedure Side Surgeon p Repeat Not Applicable Pankaj Yanez DO Senior Pricing Analyst: Promise Corona Estimated blood loss (mL): 600 Disposition: PACU Anesthesia type: Spinal
[2023-01-12] MEDS: OXYTOCIN/0.9 % SODIUM CHLORIDE 20 UNITS/1,000 ML PLAST..BAG 200 UNIT IV (09:45)
[2023-01-12] MEDS: KETOROLAC TROMETHAMINE 30 MG/ML VIAL IVP ×2 (11:53→17:59)
[2023-01-12] MEDS: OXYCODONE HCL/ACETAMINOPHEN 5MG/325MG 2 TAB PO ×2 (16:41→23:37)
--- NOTE | 2023-01-12 17:28 | RESP.RT ---
Done per nursing
[2023-01-12] MEDS: ENOXAPARIN SODIUM 40 MG/0.4 ML SYRINGE SUBQ (22:01)
[2023-01-13] VITALS (7 sets, daily range): BP systolic 126–138; BP diastolic 64–77; PULSE 75–91; RESP 16–18; TEMP 36.3–36.9; O2SAT 91
[2023-01-13] MEDS: KETOROLAC TROMETHAMINE 30 MG/ML VIAL IVP ×4 (00:35→19:13)
[2023-01-13 06:07] LABS: Basophils Absolute Auto 0.1 10^3/uL (0.0-0.1); Basophils Percent Auto 0.7 % (0.2-2.0); Eosinophils Absolute Auto 0.2 10^3/uL (0.0-0.7); Hemoglobin 8.5 g/dL (12.0-16.0); Immature Granulocytes Abs Auto 0.04 10^3/uL (0.00-0.03); Immature Granulocytes Pct Auto 0.5 % (0.0-0.5); Lymphocytes Percent Auto 13.8 % (20.5-60.0); Mean Corpuscular HGB Conc 31.5 g/dL (29.9-35.2); Mean Corpuscular Hemoglobin 29.6 pg (26.7-34.0); Mean Corpuscular Volume 94.1 fL (81.0-99.0); Mean Platelet Volume 11.7 fL (9.5-13.5); Monocytes Absolute Auto 0.5 10^3/uL (0.3-0.8); Monocytes Percent Auto 6.6 % (1.7-12.0); Neutrophils Absolute Auto 5.7 10^3/uL (1.4-6.5); Neutrophils Percent Auto 76.4 % (43.0-75.0); Platelet Count 139 10^3/uL (150-450); Red Blood Count 2.87 10^6/uL (4.20-5.40); Red Cell Distribution Width 15.2 % (11.0-15.0); White Blood Count 7.5 10^3/uL (4.0-11.0)
[2023-01-13] MEDS: OXYCODONE HCL/ACETAMINOPHEN 5MG/325MG 2 TAB PO ×3 (07:41→20:59)
--- NOTE | 2023-01-13 07:45 | PM.OBPN ---
OB - PN: Subj Subjective Patient comments: no complaints and pain well controlled [place] status: doing well Exam Constitutional Vital Signs, click to edit/add: Last Vital Signs Temp 98.2 F 01/13/23 06:15 Pulse 75 01/13/23 06:18 Resp 18 01/13/23 06:15 BP 138/77 01/13/23 06:18 Pulse Ox 91 L 01/13/23 00:00 O2 Del Method Room Air 01/13/23 06:15 Documenting provider has reviewed patient's vital signs: yes Common normals: no apparent distress Respiratory Common normals: normal respiratory effort and clear to auscultation bilaterally Cardio Common normals: regular rate and regular rhythm GI Common normals: Normal to inspection, nondistended, normoactive bowel sounds present Extremity Common normals: no calf tenderness Results Labs Labs: Short CBC 01/13/23 Range/Units 05:56 WBC 7.5 (4.0-11.0) 10^3/uL Hgb 8.5 L (12.0-16.0) g/dL Hct 27.0 L (36.0-48.0) % Plt Count 139 L (150-450) 10^3/uL OB - PN: A/P Plan - day: 1 Plan: routine postop care Time Spent with Patient Time: Total time spent is greater than 50% in coordination of care (as documented) at patient's floor/unit and/or counseling patient: Total time spent with greater than 50% in coordination of care (as documented) at patient's floor/unit and/or counseling patient: less than 15 minutes
[2023-01-13] MEDS: DOCUSATE SODIUM 100 MG CAPSULE PO ×2 (08:37→20:18)
--- NOTE | 2023-01-13 11:05 | PC.NURSE ---
asleep with snoring respirations
--- NOTE | 2023-01-13 14:24 | PC.NURSE ---
up in room to sofa, voids and reviewed pericare and feeds baby
[2023-01-13] MEDS: OXYCODONE HCL/ACETAMINOPHEN 5MG/325MG 1 TAB PO (14:37)
--- NOTE | 2023-01-13 18:05 | PC.NURSE ---
1630 begins feeding process, discussed plan of care and feeding plan in depth, requests subutex and given, transferred ambulatory to room 252
[2023-01-13] MEDS: ENOXAPARIN SODIUM 40 MG/0.4 ML SYRINGE SUBQ (20:17)
--- NOTE | 2023-01-13 20:46 | PC.NURSE ---
When inspecting pt incision following dressing removal, elise present with sm amount of pink-tinged drainage noted. Pt educated on importance of leaving incision open to air and keeping area dry. RN also educates on s/s of infection to look for. Pt states her last x2 c-sections her incision has gotten infected. RN continues to educate.
--- NOTE | 2023-01-13 22:10 | PC.NURSE ---
Addendum entered by Ileana Parker 01/13/23 22:11: Pt re-educated importance of keeping area dry. Original Note: Incision continues to have serosanguineous (light pink) drainage. Pad placed under abdomen fold to keep dry and catch drainage.
[2023-01-14 00:30] VITALS: BP 142/66; PULSE 83
[2023-01-14 01:40] VITALS: RESP 16
[2023-01-14] MEDS: KETOROLAC TROMETHAMINE 30 MG/ML VIAL IVP ×2 (01:46→08:32)
[2023-01-14] MEDS: OXYCODONE HCL/ACETAMINOPHEN 5MG/325MG 2 TAB PO ×2 (02:38→10:47)
--- NOTE | 2023-01-14 05:28 | P.OBPN_ITS ---
OB - PN: Subj Subjective Patient comments: no complaints and pain well controlled [place] status: doing well Exam Constitutional Vital Signs, click to edit/add: Last Vital Signs Temp 97.4 F L 01/13/23 08:03 Pulse 83 01/14/23 00:30 Resp 16 01/14/23 01:40 BP 142/66 H 01/14/23 00:30 Pulse Ox 91 L 01/13/23 00:00 O2 Del Method Room Air 01/14/23 01:40 Documenting provider has reviewed patient's vital signs: yes Common normals: no apparent distress Respiratory Common normals: normal respiratory effort and clear to auscultation bilaterally Cardio Common normals: regular rate and regular rhythm GI Common normals: Normal to inspection, nondistended, normoactive bowel sounds present Extremity Common normals: no calf tenderness Results Labs Labs: Short CBC 01/13/23 Range/Units 05:56 WBC 7.5 (4.0-11.0) 10^3/uL Hgb 8.5 L (12.0-16.0) g/dL Hct 27.0 L (36.0-48.0) % Plt Count 139 L (150-450) 10^3/uL OB - PN: A/P Plan - day: 2 Plan: routine postop care, discharge home and follow up 6 weeks Time Spent with Patient Time: Total time spent is greater than 50% in coordination of care (as documented) at patient's floor/unit and/or counseling patient: Total time spent with greater than 50% in coordination of care (as documented) at patient's floor/unit and/or counseling patient: less than 15 minutes
--- NOTE | 2023-01-14 07:59 | W.PC.ACHO ---
Registration Status: ADM IN Primary Language: Citizen [place] Preferred Language: [place] Report given at 0705. Active Medications Generic Name Dose Route Start Last Admin Trade Name Freq PRN Reason Stop Dose Admin Al Hydroxide/Mg Hydroxide 2,400 mg 01/12/23 09:29 Magnesium Hydroxide 2,400 Mg/10 Ml Oral.Susp PO Q6H PRN Dyspepsia Docusate Sodium 100 mg 01/13/23 09:00 01/13/23 20:18 Docusate Sodium 100 Mg Capsule PO 100 mg BID [place] Administration Enoxaparin Sodium 40 mg 01/12/23 21:00 01/13/23 20:17 Enoxaparin Sodium 40 Mg/0.4 Ml Syringe SUBQ 40 mg QD@2100 [facility] Administration Sodium Chloride 1,000 mls @ 125 mls/hr 01/12/23 09:30 Sodium Chloride 0.9% 1,000 Ml IV .Q8H [facility] Ibuprofen 800 mg 01/12/23 09:29 Ibuprofen 400 Mg Tablet PO Q8H PRN Pain Ketorolac Tromethamine 30 mg 01/12/23 09:29 01/14/23 01:46 Ketorolac Tromethamine 30 Mg/Ml Vial IVP 01/14/23 09:30 30 mg Q6H PRN Administration Pain Buprenorphine Hcl 8 8 each 01/12/23 19:00 01/13/23 20:38 Mg Tab Subl SL Not Given BID@0900,1900 [facility] Ondansetron HCl 4 mg 01/12/23 09:29 Ondansetron Pf 4 Mg/2 Ml Vial IV Q6H PRN Nausea And Vomiting Ondansetron HCl 4 mg 01/12/23 09:29 Ondansetron 4 Mg Rapdis Tablet PO Q6H PRN Nausea And Vomiting Oxycodone/Acetaminophen 1 tab 01/12/23 09:29 01/13/23 14:37 Oxycodone Hcl/Acetaminophen 5mg/325mg PO 1 tab Q4H PRN Administration Pain Scale 4-6 Oxycodone/Acetaminophen 2 tab 01/12/23 09:29 01/14/23 02:38 Oxycodone Hcl/Acetaminophen 5mg/325mg PO 2 tab Q4H PRN Administration Pain Scale 7-10 Senna 17.2 mg 01/12/23 20:00 Sennosides 8.6 Mg Tablet PO QHS PRN Constipation Simethicone 80 mg 01/12/23 09:29 Simethicone 80 Mg Tab.Chew PO QID PRN Abdominal Distention Respiratory Oxygen Delivery Method Room Air Renal Bladder Pattern Continent
[2023-01-14] MEDS: DOCUSATE SODIUM 100 MG CAPSULE PO (08:32)
[2023-01-14 08:39] VITALS: BP 141/65; PULSE 76
[2023-01-14 09:30] VITALS: RESP 16; TEMP 36.9
--- NOTE | 2023-01-14 14:09 | PC.NURSE ---
01/13/23 1700 pt request own subutex dose now and given same, not scanned on MAR
[2023-01-15 18:09] LABS: Buprenorphine Positive (.); Buprenorphine Conf, MS, UR 180 ng/mL (Cutoff=10); Cannabinoid Positive (.); Carboxy THC Conf, MS, UR 397 ng/mL (Cutoff=10); Norbuprenorphine Positive (.); Norbuprenorphine Conf, MS,UR 1551 ng/mL (Cutoff=10)
--- NOTE | 2023-01-18 14:33 | CM.NOTE ---
Cord results called to [facility] positive for suboxone.
--- NOTE | 2023-02-06 | DS_ITS ---
DISCHARGE DATE: 02/06/2023 PRIMARY DIAGNOSES: 1. Intrauterine at 37 weeks. 2. Gestational diabetes mellitus. 3. Obesity. 4. Opioid use. 5. Previous . 6. Hepatitis C. PROCEDURE: section. HOSPITAL COURSE: As expected. Please see chart for full details. LABORATORY DATA: Please see chart. COMPLICATIONS: None. DISCHARGE CONDITION: Stable. CONSULTATION: Anesthesia. DISCHARGE INSTRUCTIONS: 1. Diet: Regular. 2. Medications: a. Percocet 5/325 one to two p.o. every 4-6 hours p.r.n. pain. b. Motrin 800 one p.o. every 8 hours p.r.n. pain. 3. Followup in one week. Restrictions: Pelvic rest for 6 weeks. No heavy lifting[address] May drive when pain free and no longer on narcotics. MTDD
== END 2023-01-14 12:30 | disposition home or self-care (01) | DRG 540 ==
PROVIDERS: Admitting Provider Obstetrics & Gynecology; PCP Internal Medicine; Visit Provider Obstetrics & Gynecology
PROC: 10D00Z1 Extraction of Products of Conception, Low, Open Approach (ICD-10-PCS; CPT 59514; principal; 2023-01-12 07:30)
DX: O24.429 Gestational diabetes mellitus in childbirth, unspecified control (principal); O99.214 Obesity complicating childbirth; E66.01 Morbid (severe) obesity due to excess calories; O99.334 Smoking (tobacco) complicating childbirth; F17.210 Nicotine dependence, cigarettes, uncomplicated; O99.324 Drug use complicating childbirth; O98.42 Viral hepatitis complicating childbirth; B19.20 Unspecified viral hepatitis C without hepatic coma; O34.211 Maternal care for low transverse scar from previous cesarean delivery; Z37.0 Single live birth; Z90.49 Acquired absence of other specified parts of digestive tract; F12.90 Cannabis use, unspecified, uncomplicated; F11.20 Opioid dependence, uncomplicated; Z3A.37 37 weeks gestation of pregnancy
CPT/HCPCS: 36415; 80299; 80307; 80349; 85025; 86850; 86900; 86901; 88307; 94667; 94668; 96372; 96374; 96375; 96376

== ENCOUNTER 2023-04-14 13:20 | Emergency (ER) | payer MEDICAID, SELFPAY ==
[2023-04-14 13:24] VITALS: BP 142/80; PULSE 88; RESP 20; TEMP 36.9; O2SAT 100; BMI 47.8
--- NOTE | 2023-04-14 13:38 | ED.DENTAL1 ---
HPI - Dental/Oral General Chief complaint: Dental/Oral Stated complaint: MOUTH/TOOTH PAIN Time Seen by Provider: 04/14/23 13:25 Source: patient Mode of arrival: walk-in Limitations: no limitations History of Present Illness HPI Narrative: Patient is a 38-year-old female who is currently breast-feeding, presents to the ER for 3-day history of pain and swelling in the anterior teeth. She reports pain over tooth #24 and 25. She has not noticed any drainage. She reports significant pain with brushing her teeth and feels as though her lower lip is swollen anteriorly. No difficulty swallowing or speaking. No fevers or vomiting. Related Data Home Medications Medication Instructions Recorded Confirmed buprenorphine HCl 8 mg sublingual 16 mg sublingual DAILY 09/05/22 04/14/23 tablet doxylamine succinate 25 mg tablet 25 mg PO .hs 09/05/22 01/12/23 (Nighttime Sleep-Aid (doxylamine)) vit no.95-ferrous 1 tab PO DAILY 09/05/22 04/14/23 fumarate 28 mg-folic acid 800 mcg tablet () albuterol sulfate 90 mcg/actuation 2 puff inhalation Q4H PRN 04/14/23 04/14/23 aerosol inhaler shortness of breath or wheezing fluticasone propionate 50 2 spray intranasal .morning 04/14/23 04/14/23 mcg/actuation nasal spray,suspension Previous Rx's Medication Instructions Recorded ibuprofen 800 mg tablet 800 mg PO Q8H PRN pain 14 days #40 01/13/23 tabs clindamycin HCl 150 mg capsule 300 mg (2 x 150 mg) PO Q6H 10 days 04/14/23 #80 caps Allergies Allergy/AdvReac Type Severity Reaction Status Date / Time Penicillins Allergy Severe Anaphylaxis Verified 01/12/23 06:14 acetaminophen [From Vicodin] AdvReac Mild Vomiting Verified 01/12/23 06:14 hydrocodone [From Vicodin] AdvReac Mild Vomiting Verified 01/12/23 06:14 CODIENE AdvReac Mild Nausea Uncoded 01/12/23 06:14 TRAMADOL AdvReac Mild Vomiting Uncoded 01/12/23 06:14 Review of Systems ROS Constitutional Denies: fever or chills Ears, nose, mouth, and throat Reports: mouth pain; Denies: throat pain or nasal congestion Cardiovascular Denies: chest pain Respiratory Denies: shortness of breath or cough Gastrointestinal Denies: nausea or vomiting Integumentary/Breast Denies: rash Neurological Denies: headache Hematologic/Lymphatic Denies: easy bruising or easy bleeding PFSH [facility] Social History Smoking status: Light tobacco smoker What tobacco products do you use: cigarettes Packs per day: 1 Cigarettes per day: 20 Exam Narrative Exam Narrative: Gen.: Awake, alert, in no distress Head: Normocephalic, atraumatic ENT: Moist mucous membranes, Tooth #24 and 25 are partially eroded, diffuse mild swelling of the gumline anteriorly with no appreciable mandibular or maxillary swelling. No redness or swelling under the tongue. Airway widely open and patent, no trismus or drooling. Respiratory: No respiratory distress Extremities: Moves extremities equally Psych: Normal mood and affect Neuro: No focal neuro deficit Skin: Warm, dry, intact Constitutional Vital Signs, click to edit/add: Last Vital Signs Temp 98.4 F 04/14/23 13:24 Pulse 88 04/14/23 13:24 Resp 20 04/14/23 13:24 BP 142/80 H 04/14/23 13:24 Pulse Ox 100 04/14/23 13:24 Course Vital Signs Vital signs: Vital Signs Temperature 98.4 F 04/14/23 13:24 Pulse Rate 88 04/14/23 13:24 Respiratory Rate 20 04/14/23 13:24 Blood Pressure 142/80 H 04/14/23 13:24 Pulse Oximetry 100 04/14/23 13:24 Temperature 98.4 F 04/14/23 13:24 Pulse Rate 88 04/14/23 13:24 Respiratory Rate 20 04/14/23 13:24 Blood Pressure 142/80 H 04/14/23 13:24 Pulse Oximetry 100 04/14/23 13:24 MDM - Dental/Oral MDM Narrative Medical decision making narrative: Patient treated with topical analgesia, she will continue ibuprofen for home. She is on buprenorphine, no narcotics indicated for this patient. Topical analgesia provided with clindamycin for home. Follow-up with dentist and return to the ER if symptoms change or worsen I, Dr Huber, have reviewed the above progress note and course of action in the ER; agree with the above. I have gone over history and physical, and discussed disposition and treatment plan with the patient. Medical Records Attestation: I reviewed the patient's medical records. Discharge Plan Discharge Chief Complaint: Dental/Oral Clinical Impression: Toothache, Dental infection Patient Disposition: Home, Self-Care Time of Disposition Decision: 13:37 Condition: Good Prescriptions / Home Meds: New clindamycin HCl 150 mg capsule 300 mg PO Q6H 10 Days Qty: 80 0RF No Action albuterol sulfate 90 mcg/actuation HFA aerosol inhaler 2 puff INHALATION Q4H PRN (Reason: shortness of breath or wheezing) fluticasone propionate 50 mcg/actuation spray,suspension 2 spray INTRANASAL .morning Nighttime Sleep-Aid (doxylamn) 25 mg tablet 25 mg PO .hs buprenorphine HCl 8 mg tablet, sublingual 16 mg SUBLINGUAL DAILY PNV cmb#95-ferrous fumarate-FA [] 28 mg iron- 800 mcg tablet 1 tab PO DAILY ibuprofen 800 mg tablet 800 mg PO Q8H PRN (Reason: pain) 14 Days Qty: 40 0RF Instructions: Toothache (ED) Stand Alone Forms: Portal Instructions Referrals: Shaikh Garland MD [Primary Care Provider] - 1 week Discharge Date/Time: 04/14/23 13:48
[2023-04-14] MEDS: BENZOCAINE 30 ML, lidocaine HCL 15 ML MM (13:43)
== END 2023-04-14 13:48 | disposition home or self-care (01) ==
PROVIDERS: Emergency Provider Emergency Medicine; PCP Internal Medicine
DX: K08.89 Other specified disorders of teeth and supporting structures (principal); K04.7 Periapical abscess without sinus; Z79.899 Other long term (current) drug therapy; F17.210 Nicotine dependence, cigarettes, uncomplicated
CPT/HCPCS: 99284

== ENCOUNTER 2023-04-20 16:12 | Outpatient (OUT) | payer MEDICAID, SELFPAY ==
--- OUTSIDE RECORDS SUMMARY | 2023-04-20 16:24 | XMS_ITS | CCD ---
Author Name Unknown Address [address] [place] [address] Organization [facility] Care Team Providers Care Wage And Salary Specialist Name Role Phone IVAN FERNANDEZ Unavailable Unavailable [...] DOCTOR, NO FAMILY DOCTOR Primary Care Unavailable ABIGAIL, GABO Attending Unavailable PROVIDER, UNKNOWN Admitting Unavailable YUMIKO [...] Unavailable Suresh Broderick MD Attending Unavaila ble FOREST, JESSICA Attending Unavailable FOREST, JESSICA Attending Unavailable EDUAR PADILLA Attending Unavailable FAWWAD, Attending Unavailable FAWWAD, Attending Unavailable FAWWAD, KISER Attending Unavailable EDUAR PADILLA Attending Unavailable EDUAR PADILLA Attending Unavailable Allergies Allergy Classification Reported Allergen(s) Allergy Type Date of Onset Reaction(s) Facility (1 source) Acetaminophen / HYDROcodone; Translations: [HYDROCODONE-ACETA MINOPHEN] [facility] 9 [facility] sources) traMADol; Translations: [TRAMADOL] [facility] Acetaminophen / HYDROcodone Drug Allergy 6 [facility] Repository (1 source) Codeine Drug Allergy 9 [facility] Repository (1 source) Penicillin Drug Allergy 0 [facility] Repository Problems Active Problems Problem Classification Problem [...] Results Test Name Value Interpretation Reference Range Facility Otolaryngology Office/Clinic Noteon 07-14-2022 Otolaryngology Office/Clinic Note [...] reviewed the patient?s medication list for medication interactions/contraindicat ions and/or for upcoming procedures: [yes or no] [...] Liliane Devries PA-C 07/18/22 11:45 EDT Normal [facility] Otolaryngology Office/Clinic Noteon 07-06-2022 Otolaryngology Office/Clinic Note [...] g, 0 Refill(s), 07/20/22 15:17:00 EDT, Pharmacy: [facility]/pharmacy #[id number] Medical Decision Making Chronic conditions NOT treated during this visit that affected my overall medical decision making: [] Treatment plans discussed but not opted for at this time: [] Prescribed medication that requires intensive monitoring for toxicity: [] I have reviewed the patient?s medication list for medication interactions/contraindicat ions and/or for upcoming procedures: [yes or no] [...] clare, Topical, BID doxylamine, Oral Suboxone, Oral Jitendra (more content not included)... Normal [facility] US PREG TVon 06-26-2022 US PREG TV [...] BY US CRL: 8 weeks 3 days REIJ BY US CRL: 02/02/2023 IMPRESSION: 1. Single live intrauterine 8 weeks 3 days. Electronically authenticated by: RODRIGO ACOSTA Date: 2022-06-26 09:18 Normal [facility] Covid-19 PCR ([facility]on SARS-CoV-2 (COVID-19) RNA JANET+probe Ql (Unsp spec) Not detected Normal NOT DETECTED [facility] Comment on above: Result Comment: This test is not yet approved or cleared by the [place] FDA. When there are no FDA-approved or cleared tests available, and other criteria are met, FDA can make tests available under an emergency access mechanism called an Emergency Use Authorization (EUA). The EUA for this test is supported by the Mother Repairer of Health and Human Service's (HHS's) declaration [...] consistent with SARS-CoV-2. Performed By: #### C [facility] #### [facility] [address] [place] [address] Dr. Ja Cohen INFLUENZA A AND B AGon 06-16 INFLUANEGH SEE BELOW Normal [facility] Comment on above: Result Comment: Nega tive for Flu A protein angiten. Infection due to Flu A cannot be ruled out. Flu A angiten in the sample may be below the detection limit of the test. Performed By: #### I NFLUAB #### [facility] [address] [place] [address] Dr. Ja Cohen INFLUBNEGH SEE BELOW Normal [facility] Comment on above: Result Comment: Nega tive for Flu B protein antigen. Infection due to Flu B cannot be ruled out. Flu B antigen in the sample may be below the detection limit of the test. Performed By: #### I NFLUAB #### [facility] [address] [place] [address] Dr. Ja Cohen INFLUENZA A AG Negative Normal NEGATIVE SEE COMMENT [facility] Comment on above: Performed By: #### I NFLUAB #### [facility] [address] [place] [address] Dr. Ja Cohen INFLUENZA B AG Negative Normal NEGATIVE SEE COMMENT [facility] Comment on above: Performed By: #### I NFLUAB #### [facility] [address] [place] [address] Dr. Ja Cohen SYMPTOMATIC COVID-19 ANTIGEN on 06-16-2022 EUA Statement SEE BELOW Normal The [facility] Comment on above: Result Comment: This test [...] sooner. Performed By: #### C VDAGS #### [facility] [address] [place] [address] Dr. Ja Cohen SARS-CoV-2 (COVID-19) RNA JANET+probe Ql (Unsp spec) Negative Normal NEGATIVE [facility] Comment on above: Performed By: #### C VDAGS #### [facility] [address] [place] [address] Dr. Ja Cohen PREG QUANT HCGon 06-11-2022 HCG QUANT 22718 mIU/mL Normal [facility] Comment on above: Performed By: #### P REGQNT #### [facility] [address] [place] [address] Dr. Ja Cohen HCG RANGE SEE BELOW Normal [facility] Comment on above: Result Comment: 5-50 0.2-1 WEEK 50-500 1-2 WEEKS 100-5,000 2-3 WEEKS 500-10,000 3-4 WEEKS 1,000-50,000 4-5 WEEKS 10,000-100,000 5-6 WEEKS 15,000-200,000 6-8 WEEKS 10,000-100,000 2-3 MONTHS Performed By: #### P REGQNT #### [facility] [address] [place] [address] Dr. Ja Cohen ECHOCARDIO M/2D COMPLETEon 0 08-11-2021 ECHOCARDIO M/2D COMPLETE Patient: RYAN HALL Exam Date: 08/11/2021 : 1985 Gender:F Ordering : SHAIKH Addy GARLAND . Admission #: [id number] Family : Order #: [id number] CLICK HERE TO VIEW EXAM ECHOCARDIOGRAM REPORT [...] Area(A4C): 23.40 cm2 Left Atrium Systolic Volume(A2C): 93603 mm3 Left Atrium Systolic Volume(A4C): 72522 mm3 Mitral Valve MV E to A Ratio: 1.90 MV Mean Gradient: 1 mm[Hg] Deceleration [place]: 6410 mm/s2 Mitral Valve A-Wave Peak Velocity: [...] Mederos M.D. on 08/11/2021 at 12:50 Normal [facility] AFB Culture with Stainon AFB Stain SEE NOTE Normal [facility] Comment on above: Result Comment: Nega tive for Acid Fast Bacteria.Less than 5 mL of specimen received.A minimum of 5 mL of sputum or fluid is recommendedfor recovery of acid fast bacilli (AFB).Volumes less than 5 mL are suboptimal and maycompromise recovery of AFB from culture. Final SEE NOTE Normal [facility] Comment on above: Result Comment: Cult ure negative for acid fast bacilliPerformed by [facility],[address] [facility] [place] [address] uuc.[employer], Artur Agustin MD - Lab. Director Preliminary SEE NOTE [facility] Comment on above: Result Comment: Spec imen received and in progress.Positive culture results are called as soon as detected.Final report to follow in seven to eight weeksPerformed by [facility],[address] [facility] [address] jkt.[employer], Artur Agustin MD - Lab. Director AFB Stain SEE NOTE Normal [facility] Comment on above: Order Comment: CALL [facility] LC1W tel. [phone], called hgb to ramila oseguera rn on 1w [facility] called to and read back by ramila oseguera on 1w, 12/27/201706:44, by RAYSHAWN Result Comment: Nega tive for Acid Fast Bacteria. Order Comment: Bronc h wash RULBronch Wash RUL Final SEE NOTE Normal [facility] Comment on above: Order Comment: Bronc h wash RULBronch Wash RUL Result Comment: Cult ure negative for acid fast bacilliPerformed by [facility],[address] [facility], [facility] [place] [facility] [place] [address] cwo.[employer], Artur Agustin MD - Lab. Director Order Comment: CALL [facility] LC1W tel. [phone], called hgb to ramila oseguera rn on 1w by scbHematology results called to and read back by ramila oseguera on 1w, 12/27/201706:44, by [facility] Basic Metabolic Panelon 01-15 Anion gap 3 molar conc 10 mmol/L Normal 7-13 [facility] Calcium mass conc 8.7 mg/dL Normal 8.6-10.2 [facility] Chloride molar conc 105 mmol/L Normal 98-107 [facility] CO2 molar conc 26 mmol/L Normal 22-29 [facility] Creatinine mass conc 0.60 mg/dL Normal 0.50-0.90 [facility] GFR/1.73 sq M predicted among blacks MDRD vol rate/area (S/P/Bld) mL/min/{1.73_m2} Normal >60 [facility] Comment on above: Result Comment: >60 mL/min/1.73m2 EGFR, calc. for ages 18 and older using theMDRD formula (not corrected for weight), is valid for stablerenal function. GFR/1.73 sq M.predicted MDRD vol rate/area mL/min/{1.73_m2} Normal >60 [facility] Comment on above: Result Comment: >60 mL/min/1.73m2 EGFR, calc. for ages 18 and older using theMDRD formula (not corrected for weight), is valid for stablerenal function. Glucose mass conc 101 mg/dL Normal 74-109 [facility] Potassium molar conc 4.5 mmol/L Normal 3.5-5.1 [facility] Sodium molar conc 141 mmol/L Normal 132-144 [facility] Urea nitrogen mass conc 15 mg/dL Normal 6-20 [facility] CBC With Platelet No Differe ntialon 02-01-2018 Erythrocyte distribution width Auto Ratio (RBC) 23.7 % Critically high 11.5-14.5 [facility] Hematocrit Auto Volume Fraction (Bld) 28.0 % Low 37.0-47.0 [facility] Hemoglobin mass conc (Bld) 9.3 g/dL Low 12.0-16.0 [facility] MCH Auto Entitic mass (RBC) 29.1 pg Normal 27.0-31.3 [facility] MCHC Auto mass conc (RBC) 33.1 % Normal 33.0-37.0 [facility] MCV Auto Entitic volume (RBC) 87.9 fL Normal 82.0-100.0 [facility] Platelets Auto #/vol (Bld) 229 10*3/uL Normal 130-400 [facility] RBC Auto #/vol (Bld) 3.19 10*6/uL Low 4.20-5.40 [facility] WBC Auto #/vol (Bld) 2.7 10*3/uL Low 4.8-10.8 [facility] Culture, Funguson 01-29-2018 Final SEE NOTE Normal [facility] Comment on above: Order Comment: CALL [facility] LC1W tel. [phone], called hgb to ramila oseguera rn on 1w by scbHematology results called to and read back by ramila oseguera on 1w, 12/27/201706:44, by BON Result Comment: Cult ure negative for FungiPerformed by [facility],[address] [place] [id number] oyv.[employer], Artur Agustin MD - Lab. Director Basic Metabolic Panelon 01-15 Anion gap 3 molar conc 9 mmol/L Normal 7-13 [facility] Calcium mass conc 9.5 mg/dL Normal 8.6-10.2 [facility] Chloride molar conc 106 mmol/L Normal 98-107 [facility] CO2 molar conc 27 mmol/L Normal 22-29 [facility] Creatinine mass conc 0.71 mg/dL Normal 0.50-0.90 [facility] GFR/1.73 sq M predicted among blacks MDRD vol rate/area (S/P/Bld) mL/min/{1.73_m2} Normal >60 [facility] Comment on above: Result Comment: >60 mL/min/1.73m2 EGFR, calc. for ages 18 and older using theMDRD formula (not corrected for weight), is valid for stablerenal function. GFR/1.73 sq M.predicted MDRD vol rate/area mL/min/{1.73_m2} Normal >60 [facility] Comment on above: Result Comment: >60 mL/min/1.73m2 EGFR, calc. for ages 18 and older using theMDRD formula (not corrected for weight), is valid for stablerenal function. Glucose mass conc 93 mg/dL Normal 74-109 [facility] Potassium molar conc 4.7 mmol/L Normal 3.5-5.1 [facility] Sodium molar conc 142 mmol/L Normal 132-144 [facility] Urea nitrogen mass conc 14 mg/dL Normal 6-20 [facility] CBC With Platelet and Differ entialon 01-25-2018 Anisocytosis Auto Ql (Bld) PRESENT Normal [facility] Erythrocyte distribution width Auto Ratio (RBC) 28.7 % Critically high 11.5-14.5 [facility] Hematocrit Auto Volume Fraction (Bld) 24.9 % Low 37.0-47.0 [facility] Hemoglobin mass conc (Bld) 8.3 g/dL Low 12.0-16.0 [facility] MCH Auto Entitic mass (RBC) 28.2 pg Normal 27.0-31.3 [facility] MCHC Auto mass conc (RBC) 33.1 % Normal 33.0-37.0 [facility] MCV Auto Entitic volume (RBC) 85.0 fL Normal 82.0-100.0 [facility] Platelets Auto #/vol (Bld) 225 10*3/uL Normal 130-400 [facility] RBC Auto #/vol (Bld) 2.93 10*6/uL Low 4.20-5.40 [facility] Basophils Auto #/vol (Bld) 0.0 10*3/uL Normal 0.0-0.2 [facility] Basophils/100 WBC Auto (Bld) 1.0 % Normal [facility] Eosinophils Auto #/vol (Bld) 0.3 10*3/uL Normal 0.0-0.7 [facility] Eosinophils/100 WBC Auto (Bld) 5.4 % Normal [facility] Lymphocytes Auto #/vol (Bld) 1.7 10*3/uL Normal 1.0-4.8 [facility] Lymphocytes/100 WBC Auto (Bld) 37.1 % Normal [facility] Monocytes Auto #/vol (Bld) 0.2 10*3/uL Normal 0.2-0.8 [facility] Monocytes/100 WBC Auto (Bld) 5.1 % Normal [facility] Neutrophils Auto #/vol (Bld) 2.4 10*3/uL Normal 1.4-6.5 [facility] Neutrophils/100 WBC Auto (Bld) 51.4 % Normal [facility] WBC Auto #/vol (Bld) 4.7 10*3/uL Low 4.8-10.8 [facility] Culture, Funguson 01-24-2018 Final SEE NOTE Normal [facility] Comment on above: Order Comment: Bronc h Wash LLLBronch Wash LLL Result Comment: Cult ure POSITIVE forYeast not Cryptococcus speciesPerformed by [facility],[address] [facility] [address] hkb.[employer], Artur Agustin MD - Lab. Director Preliminary SEE NOTE Normal [facility] Comment on above: Order Comment: Bronc h Wash LLLBronch Wash LLL Result Comment: Cult ure POSITIVE forYeast not Cryptococcus speciesPerformed by [facility],[address] [facility] [address] alk.[facility] [employer], Artur Agustin MD - Lab. Director Basic Metabolic Panelon 12-0 Anion gap 3 molar conc 10 mmol/L Normal 7-13 [facility] Calcium mass conc 9.4 mg/dL Normal 8.6-10.2 [facility] Chloride molar conc 102 mmol/L Normal 98-107 [facility] CO2 molar conc 27 mmol/L Normal 22-29 [facility] Creatinine mass conc 0.70 mg/dL Normal 0.50-0.90 [facility] GFR/1.73 sq M predicted among blacks MDRD vol rate/area (S/P/Bld) mL/min/{1.73_m2} Normal >60 [facility] Comment on above: Result Comment: >60 mL/min/1.73m2 EGFR, calc. for ages 18 and older using theMDRD formula (not corrected for weight), is valid for stablerenal function. GFR/1.73 sq M.predicted MDRD vol rate/area mL/min/{1.73_m2} Normal >60 [facility] Comment on above: Result Comment: >60 mL/min/1.73m2 EGFR, calc. for ages 18 and older using theMDRD formula (not corrected for weight), is valid for stablerenal function. Glucose mass conc 73 mg/dL Low 74-109 [facility] Potassium molar conc 4.6 mmol/L Normal 3.5-5.1 [facility] Sodium molar conc 139 mmol/L Normal 132-144 [facility] Urea nitrogen mass conc 15 mg/dL Normal 6-20 [facility] CBC With Platelet No Differe ntialon 01-21-2018 Erythrocyte distribution width Auto Ratio (RBC) 24.9 % Critically high 11.5-14.5 [facility] Hematocrit Auto Volume Fraction (Bld) 24.4 % Low 37.0-47.0 [facility] Hemoglobin mass conc (Bld) 8.1 g/dL Low 12.0-16.0 [facility] MCH Auto Entitic mass (RBC) 28.3 pg Normal 27.0-31.3 [facility] MCHC Auto mass conc (RBC) 33.3 % Normal 33.0-37.0 [facility] MCV Auto Entitic volume (RBC) 85.0 fL Normal 82.0-100.0 [facility] Platelets Auto #/vol (Bld) 184 10*3/uL Normal 130-400 [facility] RBC Auto #/vol (Bld) 2.88 10*6/uL Low 4.20-5.40 [facility] WBC Auto #/vol (Bld) 4.6 10*3/uL Low 4.8-10.8 [facility] Basic Metabolic Panelon 11-2 Anion gap 3 molar conc 10 mmol/L Normal 7-13 [facility] Calcium mass conc 9.3 mg/dL Normal 8.6-10.2 [facility] Chloride molar conc 106 mmol/L Normal 98-107 [facility] CO2 molar conc 26 mmol/L Normal 22-29 [facility] Creatinine mass conc 0.93 mg/dL Critically high 0.50-0.90 [facility] GFR/1.73 sq M predicted among blacks MDRD vol rate/area (S/P/Bld) mL/min/{1.73_m2} Normal >60 [facility] Comment on above: Result Comment: >60 mL/min/1.73m2 EGFR, calc. for ages 18 and older using theMDRD formula (not corrected for weight), is valid for stablerenal function. GFR/1.73 sq M.predicted MDRD vol rate/area mL/min/{1.73_m2} Normal >60 [facility] Comment on above: Result Comment: >60 mL/min/1.73m2 EGFR, calc. for ages 18 and older using theMDRD formula (not corrected for weight), is valid for stablerenal function. Glucose mass conc 103 mg/dL Normal 74-109 [facility] Potassium molar conc 4.5 mmol/L Normal 3.5-5.1 [facility] Sodium molar conc 142 mmol/L Normal 132-144 [facility] Urea nitrogen mass conc 17 mg/dL Normal 6-20 [facility] CBC With Platelet and Differ entialon 01-11-2018 Anisocytosis Auto Ql (Bld) PRESENT Normal [facility] Erythrocyte distribution width Auto Ratio (RBC) 23.8 % Critically high 11.5-14.5 [facility] Hematocrit Auto Volume Fraction (Bld) 25.6 % Low 37.0-47.0 [facility] Hemoglobin mass conc (Bld) 8.4 g/dL Low 12.0-16.0 [facility] Hypochromia PRESENT Normal [facility] MCH Auto Entitic mass (RBC) 26.5 pg Low 27.0-31.3 [facility] MCHC Auto mass conc (RBC) 32.8 % Low 33.0-37.0 [facility] MCV Auto Entitic volume (RBC) 80.9 fL Low 82.0-100.0 [facility] Platelets Auto #/vol (Bld) 259 10*3/uL Normal 130-400 [facility] RBC Auto #/vol (Bld) 3.16 10*6/uL Low 4.20-5.40 [facility] Basophils Auto #/vol (Bld) 0.1 10*3/uL Normal 0.0-0.2 [facility] Basophils/100 WBC Auto (Bld) 1.5 % Normal [facility] Eosinophils Auto #/vol (Bld) 0.2 10*3/uL Normal 0.0-0.7 [facility] Eosinophils/100 WBC Auto (Bld) 4.2 % Normal [facility] Lymphocytes Auto #/vol (Bld) 1.9 10*3/uL Normal 1.0-4.8 [facility] Lymphocytes/100 WBC Auto (Bld) 40.0 % Normal [facility] Monocytes Auto #/vol (Bld) 0.1 10*3/uL Low 0.2-0.8 [facility] Monocytes/100 WBC Auto (Bld) 3.1 % Normal [facility] Neutrophils Auto #/vol (Bld) 2.4 10*3/uL Normal 1.4-6.5 [facility] Neutrophils/100 WBC Auto (Bld) 51.2 % Normal [facility] WBC Auto #/vol (Bld) 4.6 10*3/uL Low 4.8-10.8 [facility] Culture, Funguson 01-08-2018 Preliminary SEE NOTE Normal [facility] Comment on above: Order Comment: CALL [facility] LC1W tel. [phone], called hgb to rmaila oseguera rn on 1w by scbHematology results called to and read back by ramila oseguera on 1w, 12/27/201706:44, by RAYSHAWN Result Comment: No Nathan starks, culture still in progress.Performed by [facility],[address] [place] [id number] laj.[employer], Artur Agustin MD - Lab. Director CBC With Platelet and Differ entialon 01-04-2018 Anisocytosis Auto Ql (Bld) 2+ Normal [facility] Bands 2 % Low 5-11 [facility] Basophils Auto #/vol (Bld) 0.1 10*3/uL Normal 0.0-0.2 [facility] Basophils/100 WBC Auto (Bld) 1.0 % Normal [facility] Eosinophils Auto #/vol (Bld) 0.2 10*3/uL Normal 0.0-0.7 [facility] Eosinophils/100 WBC Auto (Bld) 2.0 % Normal [facility] Lymphocytes Auto #/vol (Bld) 0.7 10*3/uL Low 1.0-4.8 [facility] Lymphocytes/100 WBC Auto (Bld) 9.0 % Normal [facility] Macrocytic 1+ Normal [facility] Microcytic 1+ Normal [facility] Monocytes Auto #/vol (Bld) 0.0 10*3/uL Low 0.2-0.8 [facility] Monocytes/100 WBC Auto (Bld) 4.4 % Normal [facility] Neutrophils Auto #/vol (Bld) 6.8 10*3/uL Critically high 1.4-6.5 [facility] Neutrophils/100 WBC Auto (Bld) 86.0 % Normal [facility] Ovalocytes 1+ Normal [facility] Platelet Slide Review Normal Normal [facility] Poikilocytosis 2+ Normal [facility] Tear Drop Cells 1+ Normal [facility] Erythrocyte distribution width Auto Ratio (RBC) 20.4 % Critically high 11.5-14.5 [facility] Hematocrit Auto Volume Fraction (Bld) 22.7 % Low 37.0-47.0 [facility] Hemoglobin mass conc (Bld) 7.4 g/dL Low 12.0-16.0 [facility] MCH Auto Entitic mass (RBC) 26.3 pg Low 27.0-31.3 [facility] MCHC Auto mass conc (RBC) 32.5 % Low 33.0-37.0 [facility] MCV Auto Entitic volume (RBC) 80.8 fL Low 82.0-100.0 [facility] Platelets Auto #/vol (Bld) 234 10*3/uL Normal 130-400 [facility] RBC Auto #/vol (Bld) 2.81 10*6/uL Low 4.20-5.40 [facility] WBC Auto #/vol (Bld) 7.7 10*3/uL Normal 4.8-10.8 [facility] Respiratory Virus Panel by Bret Solis 01-04-2018 Adenovirus B/E - PCR Not Detected Normal [facility] Adenovirus C - PCR Not Detected Normal [facility] Comment on above: Result Comment: The specimen submitted for testing did not meet ARUPsubmission guidelines. Testing was performed on a specimenthat did not meet validated type requirements.Performance characteristics of this assay may be affected.Interpret results with caution. Please refer to the [employer] Directory for information on specimenacceptability:[email or web address].Test developed and characteristics determined by [facility]. See Compliance Statement B: [facility]/CS.Performed by [facility],[address] [place] [id number] txf.[facility] [employer], Artur Agustin MD - Lab. Director Human Metapneumovirus - PCR Not Detected Normal [facility] Human Rhinovirus - PCR Not Detected Normal [facility] Influenza A - PCR Not Detected Normal [facility] Influenza A 2009 H1N1 - PCR Not Detected Normal [facility] Influenza A H1 - PCR Not Detected Normal [facility] Influenza A H3 - PCR Not Detected Normal [facility] Influenza B - PCR Not Detected Normal [facility] Parainfluenza Virus 1 - PCR Not Detected Normal [facility] Parainfluenza Virus 2 - PCR Not Detected Normal [facility] Parainfluenza Virus 3 - PCR Not Detected Normal [facility] Respiratory Syncytial Virus A - PCR Not Detected Normal [facility] Respiratory Syncytial Virus B - PCR Not Detected Normal [facility] RVP Source Bronch Wash RUL Normal [facility] CBC With Platelet and Differ entialon 01-02-2018 Basophils Auto #/vol (Bld) 0.1 10*3/uL Normal 0.0-0.2 [facility] Basophils/100 WBC Auto (Bld) 0.8 % Normal [facility] Eosinophils Auto #/vol (Bld) 0.1 10*3/uL Normal 0.0-0.7 [facility] Eosinophils/100 WBC Auto (Bld) 1.6 % Normal [facility] Erythrocyte distribution width Auto Ratio (RBC) 19.9 % Critically high 11.5-14.5 [facility] Hematocrit Auto Volume Fraction (Bld) 22.0 % Low 37.0-47.0 [facility] Hemoglobin mass conc (Bld) 7.3 g/dL Low 12.0-16.0 [facility] Lymphocytes Auto #/vol (Bld) 1.2 10*3/uL Normal 1.0-4.8 [facility] Lymphocytes/100 WBC Auto (Bld) 19.0 % Normal [facility] MCH Auto Entitic mass (RBC) 26.8 pg Low 27.0-31.3 [facility] MCHC Auto mass conc (RBC) 33.4 % Normal 33.0-37.0 [facility] MCV Auto Entitic volume (RBC) 80.4 fL Low 82.0-100.0 [facility] Monocytes Auto #/vol (Bld) 0.3 10*3/uL Normal 0.2-0.8 [facility] Monocytes/100 WBC Auto (Bld) 4.9 % Normal [facility] Neutrophils Auto #/vol (Bld) 4.8 10*3/uL Normal 1.4-6.5 [facility] Neutrophils/100 WBC Auto (Bld) 73.7 % Normal [facility] Platelets Auto #/vol (Bld) 248 10*3/uL Normal 130-400 [facility] RBC Auto #/vol (Bld) 2.74 10*6/uL Low 4.20-5.40 [facility] WBC Auto #/vol (Bld) 6.5 10*3/uL Normal 4.8-10.8 [facility] Rejection Notificationon Rejected Test FOB Normal [facility] Rejected Test FOB Normal [facility] AFB Culture with Stainon Preliminary SEE NOTE Normal [facility] Comment on above: Order Comment: Bronc h wash RULBronch Wash RUL Result Comment: Spec imen received and in progress.Positive culture results are called as soon as detected.Final report to follow in seven to eight weeksPerformed by [facility],[address] [place] [address],[place] [address] [employer], Artur Agustin MD - Lab. Director Preliminary SEE NOTE Normal [facility] Comment on above: Order Comment: CALL [facility] 1W tel. [phone], called hgb to ramila june rn on 1w by scbHematology results called to and read back by ramila june on 1w, 12/27/201706:44, by BONSA Result Comment: Spec ashley received and in progress.Positive culture results are called as soon as detected.Final report to follow in seven to eight weeksPerformed by [facility],[address] [place] [address], [facility] [place] [address] ian[employer], Artur Agustin MD - Lab. Director CBC With Platelet and Differ entialon 01-01-2018 Basophils Auto #/vol (Bld) 0.0 10*3/uL Normal 0.0-0.2 [facility] Comment on above: Order Comment: CALL [facility] 1 tel. [phone], called hgb to ramila june rn on 1w by scbHematology results called to and read back by ramila june on 1w, 12/27/201706:44, by BONSA Basophils/100 WBC Auto (Bld) 0.8 % Normal [facility] Comment on above: Order Comment: CALL [facility] 1W tel. [phone], called hgb to ramila june rn on 1w by scbHematology results called to and read back by ramila june on 1w, 12/27/201706:44, by BONSA Eosinophils Auto #/vol (Bld) 0.1 10*3/uL Normal 0.0-0.7 [facility] Comment on above: Order Comment: CALL [facility] 1W tel. [phone], called hgb to ramila june rn on 1w by scbHematology results called to and read back by ramila june on 1w, 12/27/201706:44, by BONSA Eosinophils/100 WBC Auto (Bld) 1.8 % Normal [facility] Comment on above: Order Comment: CALL [facility] 1W tel. [phone], called hgb to ramila oseguera rn on 1w by scbHematology results called to and read back by ramila june on 1w, 12/27/201706:44, by BONSA Erythrocyte distribution width Auto Ratio (RBC) 18.6 % Critically high 11.5-14.5 [facility] Comment on above: Order Comment: CALL [facility] tel. [phone], called hgb to ramila oseguera rn on 1w by scbHematology results called to and read back by ramila oseguera on 1w, 12/27/201706:44, by BONSA Hematocrit Auto Volume Fraction (Bld) 20.1 % Critically low 37.0-47.0 [facility] Comment on above: Order Comment: CALL [facility] tel. [phone], called hgb to ramila oseguera rn on 1w by scbHematology results called to and read back by ramila oseguera on 1w, :44, by BON Hemoglobin mass conc (Bld) 6.7 g/dL Critically low 12.0-16.0 [facility] Comment on above: Order Comment: CALL [address] tel. [phone], called hgb to ramila oseguera rn on 1w by scbHematology results called to and read back by ramila oseguera on 1w, 12/27/201706:44, by BON Result Comment: veri fied by repeat Lymphocytes Auto #/vol (Bld) 0.9 10*3/uL Low 1.0-4.8 [facility] Comment on above: Order Comment: CALL [address] tel. [phone], called hgb to ramila oseguera rn on 1w by scbHematology results called to and read back by ramila oseguera on 1w, 12/27/201706:44, by RAYSHAWN Lymphocytes/100 WBC Auto (Bld) 18.3 % Normal [facility] Comment on above: Order Comment: CALL [facility] tel. [phone], called hgb to ramila oseguera rn on 1w by scbHematology results called to and read back by ramila oseguera on 1w, 12/27/201706:44, by BONSA MCH Auto Entitic mass (RBC) 26.5 pg Low 27.0-31.3 [facility] Comment on above: Order Comment: CALL [facility] tel. [phone], called hgb to ramila oseguera rn on 1w by scbHematology results called to and read back by ramila june on 1w, :44, by BONSA MCHC Auto mass conc (RBC) 33.1 % Normal 33.0-37.0 [facility] Comment on above: Order Comment: CALL [address] tel. [phone], called hgb to ramila oseguera rn on 1w by scbHematology results called to and read back by ramila june on 1w, :44, by BONSA MCV Auto Entitic volume (RBC) 80.0 fL Low 82.0-100.0 [facility] Comment on above: Order Comment: CALL [facility] tel. [phone], called hgb to ramila oseguera rn on 1w by scbHematology results called to and read back by ramila june on 1w, :44, by BONSA Monocytes Auto #/vol (Bld) 0.3 10*3/uL Normal 0.2-0.8 [facility] Comment on above: Order Comment: CALL [address] tel. [phone], called hgb to ramila oseguera rn on 1w by scbHematology results called to and read back by ramila june on 1w, :44, by BONSA Monocytes/100 WBC Auto (Bld) 5.4 % Normal [facility] Comment on above: Order Comment: CALL [address] tel. [phone], called hgb to ramila oseguera rn on 1w by scbHematology results called to and read back by ramila june on 1w, :44, by BONSA Neutrophils Auto #/vol (Bld) 3.8 10*3/uL Normal 1.4-6.5 [facility] Comment on above: Order Comment: CALL [facility] tel. [phone], called hgb to ramila oseguera rn on 1w by scbHematology results called to and read back by ramila june on 1w, :44, by BONSA Neutrophils/100 WBC Auto (Bld) 73.7 % Normal [facility] Comment on above: Order Comment: CALL [facility] tel. [phone], called hgb to ramila oseguera rn on 1w by scbHematology results called to and read back by ramila june on 1w, 12/27/201706:44, by BONSA Platelets Auto #/vol (Bld) 174 10*3/uL Normal 130-400 [facility] Comment on above: Order Comment: CALL [facility] tel. [phone], called hgb to ramila oseguera rn on 1w by scbHematology results called to and read back by ramila june on 1w, 12/27/201706:44, by BONSA RBC Auto #/vol (Bld) 2.51 10*6/uL Low 4.20-5.40 [facility] Comment on above: Order Comment: CALL [facility] tel. [phone], called hgb to ramila oseguera rn on 1w by scbHematology results called to and read back by ramila june on 1w, 12/27/201706:44, by BONSA WBC Auto #/vol (Bld) 5.1 10*3/uL Normal 4.8-10.8 [facility] Comment on above: Order Comment: CALL [facility] tel. [phone], called hgb to ramila oseguera rn on 1w by scbHematology results called to and read back by ramila june on 1w, 12/27/201706:44, by RAYSHAWN [facility] Bacterial susceptibility panel by Minimum inhibitory concentration (ISRA) ORDERED BY: LESLIE PENALOZA: Blood COLLECTED: 12/31/17 00:40ANTIBIOTICS AT [facility].: RECEIVED : 12/31/17 01:26[facility] LC4W tel. [phone],Blood culture results called to and read back by Henri Christine, 01/01/2018 13:30, by Heavenly Geiger 2 FINAL 01/03/18 07:41 1 out of 2 blood cultures POSITIVE for Serratia marcescens S. marces ANTIBIOTICS ISRA Interp A moxicillin/Clavulanate >=32 R Cefepime <=1 S Ceftriaxone <=1 S Ciprofloxacin <=0.25 S Gentamicin <=1 S Trimethoprim/Sulfamethoxaz ole <=20 S S=SUSCEPTIBLE I=INTERMEDIATE R=RESISTANT Normal [facility] CBC With Platelet and Differ entialon 12-31-2017 Basophils Auto #/vol (Bld) 0.1 10*3/uL Normal 0.0-0.2 [facility] Comment on above: Order Comment: CALL [facility] LC1W tel. [phone], called hgb to ramila oseguera rn on 1w [facility] called to and read back by ramila oseguera on 1w, 12/27/201706:44, by RAYSHAWN Basophils/100 WBC Auto (Bld) 0.7 % Normal [facility] Comment on above: Order Comment: CALL [facility] LC1W tel. [phone], called hgb to ramila oseguera rn on 1w by scbHematology results called to and read back by ramila oseguera on 1w, :44, by BON Eosinophils Auto #/vol (Bld) 0.0 10*3/uL Normal 0.0-0.7 [facility] Comment on above: Order Comment: CALL [address] tel. [phone], called hgb to ramila june rn on 1w by scbHematology results called to and read back by ramila june on 1w, :44, by RAYSHAWN Eosinophils/100 WBC Auto (Bld) 0.4 % Normal [facility] Comment on above: Order Comment: CALL [address] tel. [phone], called hgb to ramila june rn on 1w by scbHematology results called to and read back by ramila oseguera on 1w, :44, by RAYSHAWN Erythrocyte distribution width Auto Ratio (RBC) 19.0 % Critically high 11.5-14.5 [facility] Comment on above: Order Comment: CALL [address] tel. [phone], called hgb to ramila june rn on 1w by scbHematology results called to and read back by ramila june on 1w, :44, by RAYSHAWN Hematocrit Auto Volume Fraction (Bld) 19.7 % Critically low 37.0-47.0 [facility] Comment on above: Order Comment: CALL [address] tel. [phone], called hgb to ramila june rn on 1w by scbHematology results called to and read back by ramila oseguera on 1w, :44, by RAYSHAWN Hemoglobin mass conc (Bld) 6.6 g/dL Critically low 12.0-16.0 [facility] Comment on above: Order Comment: CALL [facility] tel. [phone], called hgb to ramila june rn on 1w by scbHematology results called to and read back by ramila june on 1w, :44, by BONSA Result Comment: veri fied by repeat Lymphocytes Auto #/vol (Bld) 0.8 10*3/uL Low 1.0-4.8 [facility] Comment on above: Order Comment: CALL [facility] tel. [phone], called hgb to ramila oseguera rn on 1w by scbHematology results called to and read back by ramila june on 1w, :44, by BONSA Lymphocytes/100 WBC Auto (Bld) 9.0 % Normal [facility] Comment on above: Order Comment: CALL [facility] tel. [phone], called hgb to ramila oseguera rn on 1w by scbHematology results called to and read back by ramila june on 1w, :44, by BONSA MCH Auto Entitic mass (RBC) 26.7 pg Low 27.0-31.3 [facility] Comment on above: Order Comment: CALL [address] tel. [phone], called hgb to ramila oseguera rn on 1w by scbHematology results called to and read back by ramila june on 1w, :44, by BONSA MCHC Auto mass conc (RBC) 33.3 % Normal 33.0-37.0 [facility] Comment on above: Order Comment: CALL [facility] tel. [phone], called hgb to ramila oseguera rn on 1w by scbHematology results called to and read back by ramila june on 1w, :44, by BONSA MCV Auto Entitic volume (RBC) 80.1 fL Low 82.0-100.0 [facility] Comment on above: Order Comment: CALL [facility] tel. [phone], called hgb to ramila oseguera rn on 1w by scbHematology results called to and read back by ramila june on 1w, :44, by BONSA Monocytes Auto #/vol (Bld) 0.5 10*3/uL Normal 0.2-0.8 [facility] Comment on above: Order Comment: CALL [facility] tel. [phone], called hgb to ramila oseguera rn on 1w by scbHematology results called to and read back by ramila june on 1w, :44, by BONSA Monocytes/100 WBC Auto (Bld) 5.4 % Normal [facility] Comment on above: Order Comment: CALL [facility] 1 tel. [phone], called hgb to ramila oseguera rn on 1w by scbHematology results called to and read back by ramila june on 1w, 12/27/201706:44, by BONSA Neutrophils Auto #/vol (Bld) 7.1 10*3/uL Critically high 1.4-6.5 [facility] Comment on above: Order Comment: CALL [facility] tel. [phone], called hgb to ramila oseguera rn on 1w by scbHematology results called to and read back by ramila june on 1w, :44, by BONSA Neutrophils/100 WBC Auto (Bld) 84.5 % Normal [facility] Comment on above: Order Comment: CALL [facility] tel. [phone], called hgb to ramila oseguera rn on 1w by scbHematology results called to and read back by ramila june on 1w, 12/27/201706:44, by BONSA Platelets Auto #/vol (Bld) 195 10*3/uL Normal 130-400 [facility] Comment on above: Order Comment: CALL [facility] 1 tel. [phone], called hgb to ramila oseguera rn on 1w by scbHematology results called to and read back by ramila june on 1w, :44, by BONSA RBC Auto #/vol (Bld) 2.46 10*6/uL Low 4.20-5.40 [facility] Comment on above: Order Comment: CALL [facility] 1W tel. [phone], called hgb to ramila oseguera rn on 1w by scbHematology results called to and read back by ramila june on 1w, :44, by BONSA WBC Auto #/vol (Bld) 8.4 10*3/uL Normal 4.8-10.8 [facility] Comment on above: Order Comment: CALL [facility] 1W tel. [phone], called hgb to ramila oseguera rn on 1w by scbHematology results called to and read back by ramila oseguera on 1w, 12/27/201706:44, by RAYSHAWN Culture, Blood 2on 8 Culture, Blood 2 OR DERED BY: LESLIE PENALOZA: Blood COLLECTED: 12/31/17 00:40ANTIBIOTICS AT [facility].: RECEIVED : 12/31/17 01:26CALL [facility] LC4[facility] tel. [phone],Blood culture results called to and read back by Henri Christine, 01/01/2018 13:30, by MICRECulture, Blood 2 INTERIM 01/02/18 08:16 Gram stain aerobic bottle Gram negative rods 1 out of 2 blood cultures Further results to follow POSITIVE for Gram negative arminda ID and sensitivity to follow Normal [facility] IR FLUORO GUIDED CVA DEVICE PLACEMENTon 12-31-2017 [...] sheath was placed over the guidewire. A 4-Korean 44 cm single lumen PICC was advanced [...] WITHOUT IMMEDIATE COMPLICATIONS.Interpreted by:FRANCO Santamariaigned by:Gordon Hinton MD01/10/18inal result Normal [facility] IR PICC WO SQ PORT/PUMP [...] sheath was placed over the guidewire. A 4-Korean 44 cm single lumen PICC was advanced [...] WITHOUT IMMEDIATE COMPLICATIONS.Interpreted by:FRANCO Santamariaigned by:Gordon Hinton MD01/10/18inal result Normal [facility] IR ULTRASOUND GUIDANCE VASCU LAR [...] sheath was placed over the guidewire. A 4-Korean 44 cm single lumen PICC was advanced [...] WITHOUT IMMEDIATE COMPLICATIONS.Interpreted by:FRANCO Santamariaigned by:Gordon Hinton MD01/10/18inal result Normal [facility] Basic Metabolic Panel Reflex Mgon 12-30-2017 Calcium mass conc 8.4 mg/dL Low 8.6-10.2 [facility] Chloride molar conc 107 mmol/L Normal 98-107 [facility] CO2 molar conc 24 mmol/L Normal 22-29 [facility] Creatinine mass conc 0.73 mg/dL Normal 0.50-0.90 [facility] GFR/1.73 sq M predicted among blacks MDRD vol rate/area (S/P/Bld) mL/min/{1.73_m2} Normal >60 [facility] Comment on above: Result Comment: >60 mL/min/1.73m2 EGFR, calc. for ages 18 and older using theMDRD formula (not corrected for weight), is valid for stablerenal function. GFR/1.73 sq M.predicted MDRD vol rate/area mL/min/{1.73_m2} Normal >60 [facility] Comment on above: Result Comment: >60 mL/min/1.73m2 EGFR, calc. for ages 18 and older using theMDRD formula (not corrected for weight), is valid for stablerenal function. Glucose mass conc 82 mg/dL Normal 74-109 [facility] Potassium reflex Mg 4.8 mEq/L Normal 3.5-5.1 [facility] Sodium molar conc 140 mmol/L Normal 132-144 [facility] Urea nitrogen mass conc 8 mg/dL Normal 6-20 [facility] Anion gap 3 molar conc 9 mmol/L Normal 7-13 [facility] Body Fluid Cell Counton 12-16 Atypical Lymphs 3 % Normal [facility] Eosinophils/100 WBC Auto (Bld) 1 % Normal [facility] Lymphocytes/100 WBC Auto (Bld) 8 % Normal [facility] Mesothelials 50 % Normal [facility] Monocytes/100 WBC Auto (Bld) 20 % Normal [facility] Neutrophils/100 WBC Auto (Bld) 18 % Normal [facility] CBC With Platelet and Differ entialon 12-30-2017 Basophils Auto #/vol (Bld) 0.0 10*3/uL Normal 0.0-0.2 [facility] Comment on above: Order Comment: CALL [facility] tel. [phone],h and h results called to and read back by es perdomo on 4w / scb,12/30/2017 09:51, by RAYSHAWN Basophils/100 WBC Auto (Bld) 1.0 % Normal [facility] Comment on above: Order Comment: CALL [facility] LC4[facility] tel. [phone],h and h results called to and read back by es perdomo on 4w / scb,12/30/2017 09:51, by BON Eosinophils Auto #/vol (Bld) 0.1 10*3/uL Normal 0.0-0.7 [facility] Comment on above: Order Comment: CALL [facility] LC4[facility] tel. [phone],h and h results called to and read back by es perdomo on 4w / scb,12/30/2017 09:51, by BONSA Eosinophils/100 WBC Auto (Bld) 1.8 % Normal [facility] Comment on above: Order Comment: CALL [facility] LC4[facility] tel. [phone],h and h results called to and read back by es perdomo on 4w / scb,12/30/2017 09:51, by BONSA Erythrocyte distribution width Auto Ratio (RBC) 18.8 % Critically high 11.5-14.5 [facility] Comment on above: Order Comment: CALL [facility] tel. [phone],h and h results called to and read back by es perdomo on 4w / scb,12/30/2017 09:51, by BONSA Hematocrit Auto Volume Fraction (Bld) 20.8 % Critically low 37.0-47.0 [facility] Comment on above: Order Comment: CALL [facility] tel. [phone],h and h results called to and read back by es perdomo on 4w / scb,12/30/2017 09:51, by BONSA Hemoglobin mass conc (Bld) 7.0 g/dL Critically low 12.0-16.0 [facility] Comment on above: Order Comment: CALL [facility] 4W tel. [phone],h and h results called to and read back by es perdomo on 4w / scb,12/30/2017 09:51, by BONSA Lymphocytes Auto #/vol (Bld) 1.0 10*3/uL Normal 1.0-4.8 [facility] Comment on above: Order Comment: CALL [facility] tel. [phone],h and h results called to and read back by es perdomo on 4w / scb,12/30/2017 09:51, by BONSA Lymphocytes/100 WBC Auto (Bld) 20.2 % Normal [facility] Comment on above: Order Comment: CALL [facility] tel. [phone],h and h results called to and read back by es perdomo on 4w / scb,12/30/2017 09:51, by BONSA MCH Auto Entitic mass (RBC) 26.8 pg Low 27.0-31.3 [facility] Comment on above: Order Comment: CALL [facility] tel. [phone],h and h results called to and read back by es perdomo on 4w / scb,12/30/2017 09:51, by BONSA MCHC Auto mass conc (RBC) 33.9 % Normal 33.0-37.0 [facility] Comment on above: Order Comment: CALL [facility] tel. [phone],h and h results called to and read back by es perdomo on 4w / scb,12/30/2017 09:51, by BONSA MCV Auto Entitic volume (RBC) 79.1 fL Low 82.0-100.0 [facility] Comment on above: Order Comment: CALL [facility] tel. [phone],h and h results called to and read back by es perdomo on 4w / scb,12/30/2017 09:51, by BONSA Monocytes Auto #/vol (Bld) 0.2 10*3/uL Normal 0.2-0.8 [facility] Comment on above: Order Comment: CALL [facility] tel. [phone],h and h results called to and read back by es perdomo on 4w / scb,12/30/2017 09:51, by BONSA Monocytes/100 WBC Auto (Bld) 4.8 % Normal [facility] Comment on above: Order Comment: CALL [facility] tel. [phone],h and h results called to and read back by es perdomo on 4w / scb,12/30/2017 09:51, by BONSA Neutrophils Auto #/vol (Bld) 3.7 10*3/uL Normal 1.4-6.5 [facility] Comment on above: Order Comment: CALL [facility] tel. [phone],h and h results called to and read back by es perdomo on 4w / scb,12/30/2017 09:51, by BONSA Neutrophils/100 WBC Auto (Bld) 72.2 % Normal [facility] Comment on above: Order Comment: CALL [facility] tel. [phone],h and h results called to and read back by es perdomo on 4w / scb,12/30/2017 09:51, by BONSA Platelets Auto #/vol (Bld) 231 10*3/uL Normal 130-400 [facility] Comment on above: Order Comment: CALL [facility] tel. [phone],h and h results called to and read back by es perdomo on 4w / scb,12/30/2017 09:51, by [facility] RBC Auto #/vol (Bld) 2.62 10*6/uL Low 4.20-5.40 [facility] Comment on above: Order Comment: CALL [facility] tel. [phone],h and h results called to and read back by es leanne on 4w / scb,12/30/2017 09:51, by RAYSHAWN WBC Auto #/vol (Bld) 5.1 10*3/uL Normal 4.8-10.8 [facility] Comment on above: Order Comment: CALL [facility] tel. [phone],h and h results called to and read back by es perdomo on 4w / scb,12/30/2017 09:51, by [facility] CT SINUS WO CONTRASTon 12-30 CT SINUS WO CONTRAST CT sinuses without intravenous contrast medium.HISTORY:Bloody mucous from nose. Infection.Technical factors:CT imaging facial sinuses obtained and formatted as 2.5 mm contiguous axial images. Sagittal coronal reconstructions obtained during postprocessing. No intravenous contrast medium utilized. No prior CT facial sinuses available for comparison.FINDINGS:Fronta l, ethmoid, sphenoid, and maxillary sinuses are patent. Nasal septum midline. Ostiomeatal complexes patent bilaterally.Mastoid air cells well aerated. Temporal mandibular joints without anomaly. Orbits without anomaly. No fracture, dislocation, bone lesion.IMPRESSION: Negative CT facial sinuses.All CT scans at this facility use dose modulation, iterative reconstruction, and/or weight based dosing when appropriate to reduce radiation dose to as low as reasonably achievable.. Interpreted by:FRANCO Mcmanusigned by:Huan Funes MD12/30/17inal result Normal [facility] Miscellaneous test 1on 12-29-2017 Miscellaneous Test 1 SEE NOTE Normal [facility] Comment on above: Order Comment: Colle ction has been rescheduled by VIVIEN at 12/26/2017 14:59. Reason:patient refusing until she gets pain meds Result Comment: Test name Result Flag Units RefIntvl HIV-1,2 Combo Antigen/Antibody Negative NegativeThe specimen was non-reactive for HIV-1 and HIV-2 antibodies, and [id number]. Based on this non-reactive screen result, further reflexivetestingwas not indicated and was, therefore, not performedINTERPRETIVE INFORMATION: HIV-1,2 Combo Ag/Ab EIA w/ReflexThis assay should not be used for blood donor screening, associatedre-entryprotocols, or for screening Human Cell, Tissues and Cellular andTissue-BasedProducts (HCT/P).Performed by [facility],[address] [place] [id number] xlv.[facility], Artur Agustin MD - Lab. Director Protein mass conc 3947433 g/dL Normal [facility] Comment on above: Order Comment: Terri gonzales has been rescheduled by VIVIEN at 12/26/2017 14:59. Reason:patient refusing until she gets pain meds [facility]acterial [facility] Bacterial susceptibility panel by Minimum inhibitory concentration (ISRA) ORDERED BY: YOLANDA HERNÁNDEZ: Bronchial Washing Right Upper Lobe COLLECTED: 12/29/17 15:09ANTIBIOTICS AT RADHA.: RECEIVED : 12/29/17 15:37 Supplemental ReportCALL Murdock LC4W tel. [phone],MRSA results called to and read back by [place], 01/01/2018 12:18, by ROGLYGram Stain Direct FINAL 01/01/18 12:19 Rare WBC's Rare epithelial cells Rare Gram positive cocci Rare Gram negative rodsCulture, Respiratory FINAL 01/01/18 12:19 Light growth Staph aureus MRSA CONTACT PRECAUTIONS INDICATED PBP2= POSITIVE Rare growth Enterobacter cloacae complex Rare growth Serratia marcescens Refer to previous sensitivity Rare growth Yeast No further workup S.aureus MRSA E. cloacae complex ANTIBIOTICS ISRA Interp ISRA Interp A moxicillin/Clavulanate >=32 R Cefazolin R >=64 R Ceftriaxone R <=1 S Ciprofloxacin <=0.25 S Clindamycin 0.5 S Gentamicin <=0.5 S <=1 S Oxacillin 0.5 R Trimethoprim/Sulfamethoxaz ole <=10 S <=20 S Vancomycin <=0.5 S S=SUSCEPTIBLE I=INTERMEDIATE R=RESISTANT Normal [facility] Bacterial susceptibility panel by Minimum inhibitory concentration (ISRA) ORDERED BY: YOLANDA HERNÁNDEZ: Bronchial Washing Body Fluid COLLECTED: 12/29/17 14:43ANTIBIOTICS AT RADHA.: RECEIVED : 12/29/17 15:42CALL Murdock LC4W tel. [phone],MRSAresults called to and read back by Nanci, [...] 12/31/17 Light growth Yeast No further workup E. cloacae complex ANTIBIOTICS ISRA Interp A moxicillin/Clavulanate >=32 R Cefazolin >=64 R Ceftriaxone <=1 S Ciprofloxacin <=0.25 S Gentamicin <=1 S Trimethoprim/Sulfamethoxaz ole <=20 S S=SUSCEPTIBLE I=INTERMEDIATE R=RESISTANT [facility] Body Fluid Cell Counton 11- Appearance Nom (U) Hazy [facility] Clot Check see below [facility] Comment on above: Result Comment: No C lots Seen Color Nom (U) Colorless Normal [facility] Fluid Source Pleural Normal [facility] Total Nucleated Cells 341 /cumm Normal [facility] Total Red Blood Cells 2888 /cumm Normal [facility] Total Cells Counted for Diff 100 Normal [facility] CBC With Platelet No Aden chapman 12-29-2017 Erythrocyte distribution width Auto Ratio (RBC) 18.5 % Critically high 11.5-14.5 [facility] Comment on above: Order Comment: Terri gonzales has been rescheduled by SAUDE at 12/26/2017 14:59. Reason:patient refusing until she gets pain meds Hematocrit Auto Volume Fraction (Bld) 18.5 % Critically low 37.0-47.0 [facility] Comment on above: Order Comment: Terri gonzales has been rescheduled by SAUDE at 12/26/2017 14:59. Reason:patient refusing until she gets pain meds Hemoglobin mass conc (Bld) 6.2 g/dL Critically low 12.0-16.0 [facility] Comment on above: Order Comment: Terri gonzales has been rescheduled by SAUDE at 12/26/2017 14:59. Reason:patient refusing until she gets pain meds MCH Auto Entitic mass (RBC) 26.6 pg Low 27.0-31.3 [facility] Comment on above: Order Comment: Terri gonzales has been rescheduled by SAUDE at 12/26/2017 14:59. Reason:patient refusing until she gets pain meds MCHC Auto mass conc (RBC) 33.6 % Normal 33.0-37.0 [facility] Comment on above: Order Comment: Terri gonzales has been rescheduled by SAUDE at 12/26/2017 14:59. Reason:patient refusing until she gets pain meds MCV Auto Entitic volume (RBC) 79.0 fL Low 82.0-100.0 [facility] Comment on above: Order Comment: Terri gonzales has been rescheduled by SAUDE at 12/26/2017 14:59. Reason:patient refusing until she gets pain meds Platelets Auto #/vol (Bld) 173 10*3/uL Normal 130-400 [facility] Comment on above: Order Comment: Terri gonzales has been rescheduled by SAUDE at 12/26/2017 14:59. Reason:patient refusing until she gets pain meds RBC Auto #/vol (Bld) 2.34 10*6/uL Low 4.20-5.40 [facility] Comment on above: Order Comment: Terri gonzales has been rescheduled by SAUDE at 12/26/2017 14:59. Reason:patient refusing until she gets pain meds WBC Auto #/vol (Bld) 3.5 10*3/uL Low 4.8-10.8 [facility] Comment on above: Order Comment: Terri gonzales has been rescheduled by SAUDE at 12/26/2017 14:59. Reason:patient refusing until she gets pain meds CONSULTATIONon 12-29-2017 [place] [address] CONSULTATIONPATIENT NAME: RYAN HALL : 1985MED REC NO: [id number] ROOM:ACCOUNT NO: [id number] ADMIT DATE: 12/25/2017PROVIDER: Ayana Herrera [facility] DATE: 12/29/2017Consultation from Dr. Dominga Hernández.REASON FOR [...] this consult.AYANA HERRERA, MDD: 12/29/2017 18:06:42 [id number]#: [id number] Doc#: [id number]: MD Dominga Rai MD [facility] Culture, Respiratoryon 12-29 Culture, Respiratory ORDERED BY: YOLANDA HERNÁNDEZ: Bronchial Washing Left Lower Lobe COLLECTED: 12/29/17 15:11ANTIBIOTICS AT RADHA.: RECEIVED : 12/29/17 15:41CALL Murdock LC4W tel. [phone],MRSA results called to and read back by Nanci, 01/01/2018 12:23, by KEVGram Stain Direct FINAL 12/30/17 10:54 Moderate WBC's, No organisms seenCulture, Respiratory FINAL 01/01/18 12:24 Light growth Staph aureus MRSA CONTACT PRECAUTIONS INDICATED PBP2= POSITIVE Previous value was 01 Staph aureus MSSA, verified by KVE at 13:14 on 12/31/17 Normal [facility] Culture, Respiratory ORDERED BY: YOLANDA HERNÁNDEZ: Bronchial Washing Right [...] Gram negative arminda ID to follow Normal [facility] Culture, Respiratory ORDERED BY: YOLANDA HERNÁNDEZ: Bronchial Washing Body Fluid COLLECTED: 12/29/17 14:43ANTIBIOTICS AT RADHA.: RECEIVED : 12/29/17 15:42Gram Stain Direct FINAL 12/30/17 10:59 Few WBC's Few epithelial cells Few Mixed Respiratory FloraCulture, Respiratory INTERIM 12/31/17 13:15 Light growth Gram negative arminda ID and sensitivity to follow Rare growth Serratia marcescens Refer to previous sensitivity Heavy growth Staph aureus MSSA Normal [facility] Cytology Medical Specimenon 12-29-2017 Cytology Medical Specimen Invalid Interpretation Code [facility] Comment on above: Result Comment: [facility] [address] [place] [address] FINAL CYTOLOGY REPORTPatient Name: RYAN HALL Accession No: [id number] Age Sex: 1985 32 Y/ F Location: [id number] No: [id number] Collected: 12/29/2017Med Rec No: [id number] Received: 12/30/2017Attend Phys: NEENA DUPONT Completed 01/03/2018Perform [...] ml fixed1 monolayer1 cell blockhx Not givenCPT: 09226 X2 30303 X2 Screened by: Irasema CAZARES M.D. 01/03/2018 [...] DURING BRONCHOSCOPY PROCEDURE.Interpreted by:FRANCO Mittaligned by:Keith Durham MD12/29/inal result Normal [facility] HCV by Quant NAATon 12-30-19 18 HCV Qnt by NAAT IU/mL Not Detected Normal [facility] Comment on above: Order Comment: Terri gonzales has been rescheduled by SAUDE at 12/26/2017 14:59. Reason:patient refusing until she gets pain meds HCV Qnt by NAAT log IU/mL Not Detected Normal [facility] Comment on above: Order Comment: Terri gonzales has been rescheduled by SAUDE at 12/26/2017 14:59. Reason:patient refusing until she gets pain meds Prothrombin Timeon 8 INR Coag RelTime (PPP) 1.1 {INR} Normal [facility] Comment on above: Result Comment: Dimitrios mmended [...] sec Prothrombin time (PT) Coag time (PPP) 11.4 s Normal 9.6-12.3 [facility] Quantiferon-TB Gold Plus, 1- Tubeon 12-29-2017 Quantiferon Mitogen minus NIL 0.52 IU/mL Normal [facility] Comment on above: Order Comment: Terri gonzales has been rescheduled by SAUDE at 12/26/2017 14:59. Reason:patient refusing until she gets pain meds Quantiferon NIL 0.05 IU/mL Normal [facility] Comment on above: Order Comment: Terri gonzales has been rescheduled by SAUDE at 12/26/2017 14:59. Reason:patient refusing until she gets pain meds Result Comment: Perf ormed by [facility],[address] [place] [address] ofy.[facility], Artur Agustin MD - Lab. Director Quantiferon PlusTB1 minus NIL 0.00 IU/mL Normal 0.00-0.34 [facility] Comment on above: Order Comment: Terri gonzales has been rescheduled by SAUDE at 12/26/2017 14:59. Reason:patient refusing until she gets pain meds Quantiferon PlusTB2 minus NIL 0.00 IU/mL Normal 0.00-0.34 [facility] Comment on above: Order Comment: Terri gonzales has been rescheduled by SAUDE at 12/26/2017 14:59. Reason:patient refusing until she gets pain meds Quantiferon TB Gold Plus Negative Normal Negative [facility] Comment on above: Order Comment: Terri gonzales [...] CD4+ lymphocyte reactivity, specifically stimulated by the LO4mugckvxu. The TB2-NIL tube detects both CD4+ and CD8+ lymphocytereactivity,stimulated by TB2 antigens. An overall Negative result does notcompletelyrule out TB infection.A false-positive result in the absence of other clinical evidence of TBinfection is not uncommon. Refer to: Updated Guidelines for UsingInterferonGamma Release Assays to Detect Mycobacterium tuberculosis Infection ---[place], 2010(http://www.cdc.gov/mmwr/preview/mmwrhtml/kb8560u8.htm),for more information concerning test performance in low-prevalencepopulations and use in occupational screening. CBC With Platelet No Aden chapman 12-28-2017 Erythrocyte distribution width Auto Ratio (RBC) 18.9 % Critically high 11.5-14.5 [facility] Comment on above: Order Comment: Terri gonzales has been rescheduled by SAUDE at 12/26/2017 14:59. Reason:patient refusing until she gets pain meds Hematocrit Auto Volume Fraction (Bld) 21.0 % Critically low 37.0-47.0 [facility] Comment on above: Order Comment: Terri gonzales has been rescheduled by SAUDE at 12/26/2017 14:59. Reason:patient refusing until she gets pain meds Hemoglobin mass conc (Bld) 6.8 g/dL Critically low 12.0-16.0 [facility] Comment on above: Order Comment: Terri gonzales has been rescheduled by SAUDE at 12/26/2017 14:59. Reason:patient refusing until she gets pain meds Result Comment: call ed h and h to lavinia chacon on 1w MCH Auto Entitic mass (RBC) 26.0 pg Low 27.0-31.3 [facility] Comment on above: Order Comment: Terri gonzales has been rescheduled by SAUDE at 12/26/2017 14:59. Reason:patient refusing until she gets pain meds MCHC Auto mass conc (RBC) 32.6 % Low 33.0-37.0 [facility] Comment on above: Order Comment: Terri gonzales has been rescheduled by SAUDE at 12/26/2017 14:59. Reason:patient refusing until she gets pain meds MCV Auto Entitic volume (RBC) 79.9 fL Low 82.0-100.0 [facility] Comment on above: Order Comment: Terri gonzales has been rescheduled by SAUDE at 12/26/2017 14:59. Reason:patient refusing until she gets pain meds Platelets Auto #/vol (Bld) 147 10*3/uL Normal 130-400 [facility] Comment on above: Order Comment: Terri gonzales has been rescheduled by SAUDE at 12/26/2017 14:59. Reason:patient refusing until she gets pain meds RBC Auto #/vol (Bld) 2.63 10*6/uL Low 4.20-5.40 [facility] Comment on above: Order Comment: Terri gonzales has been rescheduled by SAUDE at 12/26/2017 14:59. Reason:patient refusing until she gets pain meds WBC Auto #/vol (Bld) 4.2 10*3/uL Low 4.8-10.8 [facility] Comment on above: Order Comment: Terri gonzales has been rescheduled by SAUDE at 12/26/2017 14:59. Reason:patient refusing until she gets pain meds Hepatitis B Core Abs, Totalo n 12-28-2017 Hepatitis B Core Abs, Total Positive Abnormal Negative [facility] Comment on above: Order Comment: Terri gonzales [...] Tissues and Cellular andTissue-Based Products (HCT/P).Performed by [facility],[address] [place] [address] awu.[facility], Artur Agustin MD - Lab. Director Transferrinon 12-28-2017 Transferrin mass conc 135 mg/dL Low 200-400 [facility] Comment on above: Order Comment: Terri gonzales has been rescheduled by SAUDE at 12/26/2017 14:59. Reason:patient refusing until she gets pain meds Result Comment: Perf ormed by [facility],[address], [facility] [address] gcg.[facility], Artur Agustin MD - Lab. Director XR CHEST PORTABLEon 12-29-19 18 XR CHEST PORTABLE Portable chest radiographHistory: Follow-up pneumoniaTechnique: AP portable view of the [...] Montoya, DOSigned by:Chandrakant Montoya, DO12/28/18Final result Normal [facility] CBC With Platelet and Differ entialon 12-27-2017 Anisocytosis Auto Ql (Bld) 2+ Normal [facility] Comment on above: Order Comment: CALL Murdock 1W tel. [phone], called hgb to ramila oseguera rn on 1w by scbHematology results called to and read back by ramila oseguera on 1w, 12/27/201706:44, by BON Hypochromia 1+ Normal [facility] Comment on above: Order Comment: CALL Murdock 1W tel. [phone], called hgb to ramila oseguera rn on 1w by scbHematology results called to and read back by ramila oseguera on 1w, 12/27/201706:44, by BONSA Lymphocytes Auto #/vol (Bld) 0.8 10*3/uL Low 1.0-4.8 [facility] Comment on above: Order Comment: CALL Murdock LC1W tel. [phone], called hgb to ramila oseguera rn on 1w by scbHematology results called to and read back by ramila oseguera on 1w, 12/27/201706:44, by BONSA Lymphocytes/100 WBC Auto (Bld) 22.0 % Normal [facility] Comment on above: Order Comment: CALL Murdock LC1W tel. [phone], called hgb to ramila oseguera rn on 1w by scbHematology results called to and read back by ramila oseguera on 1w, 12/27/201706:44, by BONSA Microcytic 2+ Normal [facility] Comment on above: Order Comment: CALL Murdock LC1W tel. [phone], called hgb to ramila oseguera rn on 1w by scbHematology results called to and read back by ramila oseguera on 1w, :44, by BONSA Monocytes Auto #/vol (Bld) 0.1 10*3/uL Low 0.2-0.8 [facility] Comment on above: Order Comment: CALL Murdock LC1W tel. [phone], called hgb to ramila june rn on 1w by scbHematology results called to and read back by ramila june on 1w, :44, by BONSA Monocytes/100 WBC Auto (Bld) 3.8 % Normal [facility] Comment on above: Order Comment: CALL Murdock LC1W tel. [phone], called hgb to ramila june rn on 1w by scbHematology results called to and read back by ramila june on 1w, :44, by BONSA Neutrophils Auto #/vol (Bld) 2.7 10*3/uL Normal 1.4-6.5 [facility] Comment on above: Order Comment: CALL Murdock 1W tel. [phone], called hgb to ramila june rn on 1w by scbHematology results called to and read back by ramila june on 1w, :44, by BONSA Neutrophils/100 WBC Auto (Bld) 74.0 % Normal [facility] Comment on above: Order Comment: CALL Murdock 1W tel. [phone], called hgb to ramila june rn on 1w by scbHematology results called to and read back by ramila june on 1w, :44, by BONSA Platelet Slide Review Decreased Normal [facility] Comment on above: Order Comment: CALL Murdock LC1W tel. [phone], called hgb to ramila june rn on 1w by scbHematology results called to and read back by ramila june on 1w, :44, by RAYSHAWN Poikilocytosis 1+ Normal [facility] Comment on above: Order Comment: CALL Murdock LC1W tel. [phone], called hgb to ramila june rn on 1w by scbHematology results called to and read back by ramila june on 1w, :44, by BONSA Basophils Auto #/vol (Bld) 0.0 10*3/uL Normal 0.0-0.2 [facility] Comment on above: Order Comment: CALL [address] tel. [phone], called hgb to ramila june rn on 1w by scbHematology results called to and read back by ramila june on 1w, :44, by BONSA Basophils/100 WBC Auto (Bld) 1.0 % Normal [facility] Comment on above: Order Comment: CALL [address] tel. [phone], called hgb to ramila june rn on 1w by scbHematology results called to and read back by ramila june on 1w, :44, by BONSA Eosinophils Auto #/vol (Bld) 0.0 10*3/uL Normal 0.0-0.7 [facility] Comment on above: Order Comment: CALL [address] tel. [phone], called hgb to ramila june rn on 1w by scbHematology results called to and read back by ramila june on 1w, :44, by BONSA Eosinophils/100 WBC Auto (Bld) 1.1 % Normal [facility] Comment on above: Order Comment: CALL [address] tel. [phone], called hgb to ramila june rn on 1w by scbHematology results called to and read back by ramila june on 1w, :44, by BONSA Erythrocyte distribution width Auto Ratio (RBC) 18.8 % Critically high 11.5-14.5 [facility] Comment on above: Order Comment: CALL [address] tel. [phone], called hgb to ramila june rn on 1w by scbHematology results called to and read back by ramila june on 1w, :44, by BONSA Hematocrit Auto Volume Fraction (Bld) 21.1 % Low 37.0-47.0 [facility] Comment on above: Order Comment: CALL [address] tel. [phone], called hgb to ramila oseguera rn on 1w by scbHematology results called to and read back by ramila june on 1w, :44, by BONSA Hemoglobin mass conc (Bld) 6.9 g/dL Critically low 12.0-16.0 [facility] Comment on above: Order Comment: CALL Murdock [facility] tel. [phone], called hgb to ramila june rn on 1w by scbHematology results called to and read back by ramila june on 1w, :44, by BONSA Result Comment: call ed hgb to ramila june on 1w / scb MCH Auto Entitic mass (RBC) 26.5 pg Low 27.0-31.3 [facility] Comment on above: Order Comment: CALL Murdock [facility] tel. [phone], called hgb to ramila oseguera rn on 1w by scbHematology results called to and read back by ramila june on 1w, :44, by BON MCHC Auto mass conc (RBC) 32.8 % Low 33.0-37.0 [facility] Comment on above: Order Comment: CALL Murdock [facility] tel. [phone], called hgb to ramila oseguera rn on 1w by scbHematology results called to and read back by ramila oseguera on 1w, :44, by BONSA MCV Auto Entitic volume (RBC) 80.9 fL Low 82.0-100.0 [facility] Comment on above: Order Comment: CALL Murdock [facility] tel. [phone], called hgb to ramila oseguera rn on 1w by scbHematology results called to and read back by ramila june on 1w, :44, by BONSA Platelets Auto #/vol (Bld) 122 10*3/uL Low 130-400 [facility] Comment on above: Order Comment: CALL Murdock [facility] tel. [phone], called hgb to ramila oseguera rn on 1w by scbHematology results called to and read back by ramila june on 1w, :44, by BONSA RBC Auto #/vol (Bld) 2.61 10*6/uL Low 4.20-5.40 [facility] Comment on above: Order Comment: CALL Murdock LC1W tel. [phone], called hgb to ramila oseguera rn on 1w by scbHematology results called to and read back by ramila oseguera on 1w, 12/27/201706:44, by RAYSHAWN WBC Auto #/vol (Bld) 3.6 10*3/uL Low 4.8-10.8 [facility] Comment on above: Order Comment: CALL Murdock LC1W tel. [phone], called hgb to ramila oseguera rn on 1w by scbHematology results called to and read back by ramila oseguera on 1w, 12/27/201706:44, by RAYSHAWN Comprehensive Metabolic Pane l reflex Mgon 12-27-2017 Albumin mass conc 2.4 g/dL Low 3.9-4.9 [facility] ALP enzyme act/vol 40 U/L Normal 40-130 [facility] ALT enzyme act/vol U/L Normal 0-33 [facility] Anion gap 3 molar conc 11 mmol/L Normal 7-13 [facility] AST enzyme act/vol 6 U/L Normal 0-35 [facility] Bilirubin mass conc mg/dL Normal 0.0-1.2 [facility] Calcium mass conc 7.7 mg/dL Low 8.6-10.2 [facility] Chloride molar conc 110 mmol/L Critically high 98-107 [facility] CO2 molar conc 20 mmol/L Low 22-29 [facility] Creatinine mass conc 0.64 mg/dL Normal 0.50-0.90 [facility] GFR/1.73 sq M predicted among blacks MDRD vol rate/area (S/P/Bld) mL/min/{1.73_m2} Normal >60 [facility] Comment on above: Result Comment: >60 mL/min/1.73m2 EGFR, calc. for ages 18 and older using theMDRD formula (not corrected for weight), is valid for stablerenal function. GFR/1.73 sq M.predicted MDRD vol rate/area mL/min/{1.73_m2} Normal >60 [facility] Comment on above: Result Comment: >60 mL/min/1.73m2 EGFR, calc. for ages 18 and older using theMDRD formula (not corrected for weight), is valid for stablerenal function. Globulin Calculated mass conc (S) 3.9 g/dL Critically high 2.3-3.5 [facility] Glucose mass conc 115 mg/dL Critically high 74-109 [facility] Potassium reflex Mg 3.8 mEq/L Normal 3.5-5.1 [facility] Protein mass conc 6.3 g/dL Low 6.4-8.1 [facility] Sodium molar conc 141 mmol/L Normal 132-144 [facility] Urea nitrogen mass conc 10 mg/dL Normal 6-20 [facility] Ferritinon 12-27-2017 Ferritin [Mass/volume] in Serum or Plasma 152.3 ng/mL Critically high 13.0-150.0 [facility] Iron Profileon 12-27-2017 % Saturation 8 % Low 11-46 [facility] Iron Binding Capacity 132 ug/dL Low 178-450 [facility] Iron mass conc 11 ug/dL Low 37-145 [facility] RBC LRon 12-27-2017 RBC Auto #/vol (Bld) PATIENT: ISABEL Jackson LOC: LC4W,W487,01BILL# : [id number] : 1985 SEX: FORDERED BY: KIAH CHAUDHARY ORDERED : 12/27/2017 07:06 COLLECTED: 12/27/2017 07:20ORDER : [id number] RECEIVED : 12/27/2017 07:27 -----TEST NAME RESULT UNITS RANGES ABN FL STRBC LR [id number] RBC LR W0 F = Normal [facility] Retic Automatedon 12-27-2017 Hematocrit Auto Volume Fraction (Bld) 21.1 % Low 37.0-47.0 [facility] Retic Abs 0.066 m/cumm Normal 0.022-0.11 [facility] Reticulocyte Count Automated 2.5 % Critically high 0.6-2.2 [facility] Type and Screen Capture 3 sc rn cellon 12-27-2017 Type and Screen Capture 3 scrn cell PATIENT: ISABEL Jackson LOC: LC1W,[id number]# : [id number] : 1985 SEX: FORDERED BY: KIAH CHAUDHARY ORDERED : 12/27/2017 07:06 COLLECTED: 12/27/2017 07:20ORDER : [id number] RECEIVED : 12/27/2017 07:27 -----TEST NAME RESULT UNITS RANGES ABN FL STABORH Capture A POS FAntibody 3 Cell Scrn Captu NEG F @12/27/17 10:58 by BEBETO: ANTIBODY SCREEN PERFORMED ON BACKUP CAPTURE. ------- Normal [facility] Bacterial susceptibility fox el by [facility]Con 12-26-2017 Bacterial susceptibility panel by Minimum inhibitory concentration (ISRA) ORDERED BY: GALLITO POLANCO: Sputum Expectorated COLLECTED: 12/26/17 14:45ANTIBIOTICS AT RADHA.: RECEIVED : 12/29/17 12:46Gram Stain Direct FINAL 12/29/17 16:19 Moderate WBC's Few epithelial cells Few Yeast with pseudohyphaeCulture, Respiratory FINAL 12/31/17 10:36 Light growth Serratia marcescens Moderate growth Yeast No further workup S. marces ANTIBIOTICS ISRA Interp A moxicillin/Clavulanate >=32 R Cefepime <=1 S Ceftriaxone <=1 S Ciprofloxacin <=0.25 S Gentamicin <=1 S Trimethoprim/Sulfamethoxaz ole <=20 S S=SUSCEPTIBLE I=INTERMEDIATE R=RESISTANT Normal [facility] CT CHEST W CONTRASTon 2017 CT CHEST [...] tissue density, adenopathy.There is trace pericardial effusion.The [id number]-faxo the gallbladder surgically absent.IMPRESSION: FINDINGS DESCRIBED ABOVE. [...] by:FRANCO Santamariaigned by:Gordon Hinton MD12/26/17inal result Normal [facility] Culture, Blood 2on 8 Culture, Blood 2 OR DERED BY: GALLITO POLANCO: Blood COLLECTED: 12/26/17 15:49ANTIBIOTICS AT RADHA.: RECEIVED : 12/26/17 15:56Culture, Blood 2 FINAL 12/31/17 16:15 No growth after 5 days of incubation. Normal [facility] Culture, Respiratoryon 12-26 Culture, Respiratory ORDERED BY: GALLITO POLANCO: Sputum Expectorated COLLECTED: 12/26/17 14:45ANTIBIOTICS AT RADHA.: RECEIVED : 12/29/17 12:46Gram Stain Direct FINAL 12/29/17 16:19 Moderate WBC's Few epithelial cells Few Yeast with pseudohyphaeCulture, Respiratory INTERIM 12/30/17 11:53 Light growth Gram negative arminda ID and sensitivity to follow Moderate growth Yeast No further workup Normal [facility] Hepatitis C Antibodyon 12-26 Hepatitis C Antibody Interp REACTIVE Abnormal [facility] Comment on above: Order Comment: Colle ction has been rescheduled by VIVIEN at 12/26/2017 14:59. Reason:patient refusing until she gets pain meds Influenza A and Bon 12-27-19 Influenza A Antigen Negative Normal Negative [facility] Influenza B Antigen Negative Normal Negative [facility] Bacterial susceptibility fox el by [facility] 12-25-2017 Bacterial susceptibility panel by Minimum inhibitory concentration (ISRA) ORDERED BY: FLOYD SNIDER: Blood Blood COLLECTED: 12/25/17 21:04ANTIBIOTICS AT RADHA.: RECEIVED : 12/25/17 21:04CALL [facility]dock LOER tel. [phone],Blood Culture results called to and read back by Beena MASON, 12/26/2017 19:32, by Jodie, Blood FINAL 12/28/17 07:32 1 out of 2 blood cultures POSITIVE for Serratia marcescens S. marces ANTIBIOTICS ISRA Interp A moxicillin/Clavulanate >=32 R Cefepime <=1 S Ceftriaxone <=1 S Ciprofloxacin <=0.25 S Gentamicin <=1 S Trimethoprim/Sulfamethoxaz ole <=20 S S=SUSCEPTIBLE I=INTERMEDIATE R=RESISTANT Normal [facility] CBC With Platelet and Differ entialon 12-25-2017 Basophils Auto #/vol (Bld) 0.0 10*3/uL Normal 0.0-0.2 [facility] Basophils/100 WBC Auto (Bld) 0.5 % Normal [facility] Eosinophils Auto #/vol (Bld) 0.0 10*3/uL Normal 0.0-0.7 [facility] Eosinophils/100 WBC Auto (Bld) 0.2 % Normal [facility] Erythrocyte distribution width Auto Ratio (RBC) 18.9 % Critically high 11.5-14.5 [facility] Hematocrit Auto Volume Fraction (Bld) 23.6 % Low 37.0-47.0 [facility] Hemoglobin mass conc (Bld) 8.0 g/dL Low 12.0-16.0 [facility] Hypochromia PRESENT Normal [facility] Lymphocytes Auto #/vol (Bld) 1.3 10*3/uL Normal 1.0-4.8 [facility] Lymphocytes/100 WBC Auto (Bld) 16.6 % Normal [facility] MCH Auto Entitic mass (RBC) 26.5 pg Low 27.0-31.3 [facility] MCHC Auto mass conc (RBC) 33.9 % Normal 33.0-37.0 [facility] MCV Auto Entitic volume (RBC) 78.1 fL Low 82.0-100.0 [facility] Monocytes Auto #/vol (Bld) 0.5 10*3/uL Normal 0.2-0.8 [facility] Monocytes/100 WBC Auto (Bld) 6.3 % Normal [facility] Neutrophils Auto #/vol (Bld) 6.2 10*3/uL Normal 1.4-6.5 [facility] Neutrophils/100 WBC Auto (Bld) 76.4 % Normal [facility] Platelets Auto #/vol (Bld) 178 10*3/uL Normal 130-400 [facility] RBC Auto #/vol (Bld) 3.02 10*6/uL Low 4.20-5.40 [facility] WBC Auto #/vol (Bld) 8.1 10*3/uL Normal 4.8-10.8 [facility] Comprehensive Metabolic Pane thanh 12-25-2017 Albumin mass conc 3.2 g/dL Low 3.9-4.9 [facility] ALP enzyme act/vol 39 U/L Low 40-130 [facility] ALT enzyme act/vol U/L Normal 0-33 [facility] Anion gap 3 molar conc 14 mmol/L Critically high 7-13 [facility] AST enzyme act/vol 10 U/L Normal 0-35 [facility] Bilirubin mass conc 0.6 mg/dL Normal 0.0-1.2 [facility] Calcium mass conc 8.7 mg/dL Normal 8.6-10.2 [facility] Chloride molar conc 94 mmol/L Low 98-107 [facility] CO2 molar conc 24 mmol/L Normal 22-29 [facility] Creatinine mass conc 0.68 mg/dL Normal 0.50-0.90 [facility] GFR/1.73 sq M predicted among blacks MDRD vol rate/area (S/P/Bld) mL/min/{1.73_m2} Normal >60 [facility] Comment on above: Result Comment: >60 mL/min/1.73m2 EGFR, calc. for ages 18 and older using theMDRD formula (not corrected for weight), is valid for stablerenal function. GFR/1.73 sq M.predicted MDRD vol rate/area mL/min/{1.73_m2} Normal >60 [facility] Comment on above: Result Comment: >60 mL/min/1.73m2 EGFR, calc. for ages 18 and older using theMDRD formula (not corrected for weight), is valid for stablerenal function. Globulin Calculated mass conc (S) 4.4 g/dL Critically high 2.3-3.5 [facility] Glucose mass conc 120 mg/dL Critically high 74-109 [facility] Potassium molar conc 4.2 mmol/L Normal 3.5-5.1 [facility] Protein mass conc 7.6 g/dL Normal 6.4-8.1 [facility] Sodium molar conc 132 mmol/L Normal 132-144 [facility] Urea nitrogen mass conc 7 mg/dL Normal 6-20 [facility] Creatine Kinaseon 12-25-2017 CK enzyme act/vol 19 U/L Normal 0-170 [facility] Culture, Blood 2on 8 Culture, Blood 2 OR DERED BY: FLOYD SNIDER: Blood COLLECTED: 12/25/17 21:04ANTIBIOTICS AT RADHA.: RECEIVED : 12/25/17 21:04Culture, Blood 2 FINAL 12/30/17 22:15 No growth after 5 days of incubation. Normal [facility] Lactic Acidon 12-25-2017 Lactate molar conc 2.1 mmol/L Normal 0.5-2.2 [facility] Prothrombin Timeon 8 INR Coag RelTime (PPP) 1.2 {INR} Normal [facility] Comment on above: Result Comment: Dimitrios [...] Coag time (PPP) 11.8 s Normal 9.6-12.3 [facility] Troponinon 12-25-2017 Troponin I.cardiac mass conc ng/mL Normal 0.000-0.01 [facility] Comment on above: Result Comment: Meth odology by Troponin T. UR Drug Screen Rapidon 12-25 Drug Screen Comment see below Normal [facility] Comment on above: Result Comment: This method is a screening test to detect only these drugclasses as part of a medical workup. Confirmatory testingby another method should be ordered if clinically indicated. UR Amphetamines Rapid Screen Negative Normal Negative < [facility] Comment on above: Result Comment: Effe ctive: 08/30/17Methodology and/or Reference Range-Cutoff has changed. UR Barbiturates Rapid Screen Negative Normal Negative < [facility] Comment on above: Result Comment: Effe ctive: 08/30/17Methodology and/or Reference Range-Cutoff has changed. UR Benzo Rapid Screen Negative Normal Negative < [facility] Comment on above: Result Comment: Effe ctive: 08/30/17Methodology and/or Reference Range-Cutoff has changed. UR Cannabinoids Rapid Screen Negative Normal Negative < [facility] UR Cocaine Rapid Screen Negative Normal Negative < [facility] Comment on above: Result Comment: Effe ctive: 08/30/17Methodology and/or Reference Range-Cutoff has changed. UR Opiates Rapid Screen Negative Normal Negative < [facility] Comment on above: Result Comment: Effe ctive: 08/30/17Methodology and/or Reference Range-Cutoff has changed. UR PCP Rapid Screen Negative Normal Negative < [facility] UR Tricyclics Rapid Screen - Rapid Negative Normal Negative < [facility] Comment on above: Result Comment: Effe ctive: 08/30/17Methodology and/or Reference Range-Cutoff has changed. UR HCG Qualitativeon 018 HCG.beta subunit ( test) Ql (U) Negative Normal Detects HC [facility] Urinalysis, reflex to cultur eugenia 12-25-2017 Bilirubin Ql (U) Negative Normal Negative [facility] Clarity Nom (U) Clear Normal Clear [facility] Color Nom (U) Yellow Normal Straw/Lawrence [facility] Glucose Ql (U) Negative Normal Negative [facility] Hemoglobin Test strip Ql (U) Negative Normal Negative [facility] Ketones Ql (U) Negative Normal Negative [facility] Leukocyte esterase Test strip Ql (U) Negative Normal Negative [facility] Nitrite Test strip Ql (U) Negative Normal Negative [facility] pH Test strip (U) 7.0 [pH] Normal 5.0-9.0 [facility] Protein Test strip Ql (U) Negative Normal Negative [facility] Specific gravity Relative Density (U) 1.015 Normal 1.005-1.03 [facility] Urine Reflexed to Culture Not Indicated Normal [facility] Urobilinogen Test strip Qn (U) 0.2 {Katy'U}/dL Normal < 2.0 [facility] Vital Signs Date Time Vital Sign Value Performing Clinician Faci lity 12-25-2017 19:30-0500 Body mass index (BMI) [Ratio] IVAN FERNANDEZ [facility] Encounters Encounter Date Encounter Type Care Provider Facility Start: 04-19-2023 End: 04-19-2023 ambulatory SHAIKH EMILIANA Not Available Start: 04-05-2023 End: 04-05-2023 ambulatory SHAIKH EMILIANA Not Available Start: 03-03-2023 End: 03-03-2023 ambulatory SHAIKH EMILIANA Not Available Start: 02-09-2023 End: 02-09-2023 ambulatory JESSICA GARG Not Available Start: 01-25-2023 End: 01-25-2023 ambulatory EDUAR PADILLA [...] End: 06-27-[address] JESSICA GARG . Facility: Start: 06-16-2022 End: 06-16-2022 ambulatory SHAIKH Magali GARLAND Facility: Start: 06-11-2022 End: 04-28-[address] JESSICA GARG . Facility:[facility] Start: 05-28-2022 End: 05-29-2022 ambulatory Suresh Broderick MD Facility[facility] Start: 04-22-2022 End: 04-22-2022 ambulatory SHAIKH Magali GARLAND Facility:[facility] Start: 08-11-2021 End: 08-12-2021 ambulatory SHAIKH Magali GARLAND Facility:[facility] Start: 04-24-2019 End: 04-24-2019 [facility] department [facility] Start: 04-05-2018 End: 04-05-2018 Emergency department patient visit NO FAMILY DOCTOR NO FAMILY DOCTOR Facility:[facility] [employer] Start: 02-01-2018 End: 02-02-2018 Patient encounter procedure [facility] Start: 01-31-2018 End: 02-01-2018 Patient encounter procedure [facility] Start: 01-30-2018 End: 01-31-2018 Patient encounter procedure [facility] Start: 01-29-2018 End: 01-30-2018 Patient encounter procedure [facility] Start: 01-28-2018 End: 01-29-2018 Patient encounter procedure [facility] Start: 01-27-2018 End: 01-28-2018 Patient encounter procedure [facility] Start: 01-26-2018 End: 01-27-2018 Patient encounter procedure [facility] Start: 01-25-2018 End: 01-26-2018 Patient encounter procedure [facility] Start: 01-24-2018 End: 01-25-2018 Patient encounter procedure [facility] Start: 01-23-2018 End: 01-24-2018 Patient encounter procedure [facility] Start: 01-22-2018 End: 01-23-2018 Patient encounter procedure [facility] Start: 01-21-2018 End: 01-22-2018 Patient encounter procedure [facility] Start: 01-20-2018 End: 01-21-2018 Patient encounter procedure [facility] Start: 01-19-2018 End: 01-20-2018 Patient encounter procedure TINA A DIANNE [facility] Start: 01-18-2018 End: 01-19-2018 [facility] Start: 01-17-2018 End: 01-18-2018 Patient encounter procedure TINA Thornton [facility] Start: 01-16-2018 End: 01-17-2018 [facility] Start: 01-15-2018 End: 01-16-2018 Patient encounter procedure TINA Renetta DEAN [facility] Start: 01-14-2018 End: 01-15-2018 Patient encounter procedure TINA Renetta DEAN [facility] Start: 01-13-2018 End: 01-14-2018 Patient encounter procedure TINA DEAN [facility] Start: 01-12-2018 End: 01-13-2018 [facility] Start: 01-11-2018 End: 01-12-2018 [facility] Start: 01-10-2018 End: 01-11-2018 Patient [facility] Start: 01-09-2018 End: 01-10-2018 Patient [facility] Start: 01-08-2018 End: 01-09-2018 Patient encounter procedure TINA DEAN [facility] Start: 01-07-2018 End: 01-08-2018 Patient encounter [facility] Start: 01-06-2018 End: 01-07-2018 Patient encounter [facility] Start: 01-05-2018 End: 01-06-2018 Patient encounter procedure [facility] Start: 12-26-2017 End: 01-04-2018 Evaluation and management of inpatient [facility] Start: 12-25-2017 End: 12-25-2017 Emergency department patient visit [facility] Procedures Date Procedure Procedure Detail Performing Clinician Start: 04-24-2019 DISCHARGE PATIENT UNKNO WN PROVIDER Start: 02-01-2018 REMOVE PICC IVAN VALLEJO Start: 02-01-2018 Basic metabolic pane l calcium total IVAN FERNANDEZ Start: 02-01-2018 Blood count complete automated IVAN FERNANDEZ Start: 01-25-2018 Basic metabolic pane l calcium total IVAN FERNANDEZ Start: 01-25-2018 Blood count complete auto&auto difrntl wbc IVAN FERNANDEZ Start: 01-21-2018 Basic metabolic pane l calcium total IVAN FERNANDEZ Start: 01-21-2018 Blood count complete automated IVAN JIM Start: 01-11-2018 Basic metabolic pane l calcium total IVAN FERNANDEZ Start: 01-11-2018 Blood count complete auto&auto difrntl wbc IVAN FERNANDEZ Start: 01-04-2018 INCENTIVE SPIROMETRY RT VERO Start: 01-04-2018 PULSE OXIMETRY, CONTINUOUS VERO BAGHD Start: 01-04-2018 DISCHARGE PATIENT NAVNEET DREW Start: 01-04-2018 NURSING COMMUNICATION Y ACNIR Start: 01-04-2018 INCENTIVE SPIROMETRY RT VERO Start: 01-04-2018 Basic metabolic pane l calcium total VERO Start: 01-04-2018 INCENTIVE SPIROMETRY RT VERO Start: 01-04-2018 INITIATE OXYGEN THER APY PROTOCOL VERO Start: 01-04-2018 PULSE OXIMETRY, CONTINUOUS VERO Start: 01-04-2018 INCENTIVE SPIROMETRY RT VERO Start: 01-04-2018 Blood count complete auto&auto difrntl wbc VERO Start: 01-04-2018 INCENTIVE SPIROMETRY RT VERO Start: 01-04-2018 INCENTIVE SPIROMETRY RT VERO Start: 01-04-2018 Culture bacterial bl ood aerobic w/id isolates VERO Start: 01-04-2018 PULSE OXIMETRY, CONTINUOUS VERO BAGHD Start: 01-04-2018 INCENTIVE SPIROMETRY RT VERO Start: 01-04-2018 INCENTIVE SPIROMETRY RT VERO Start: 01-04-2018 PULSE OXIMETRY, CONTINUOUS VERO BAGHD Start: 01-04-2018 INCENTIVE SPIROMETRY RT VERO Start: 01-04-2018 INCENTIVE SPIROMETRY RT VERO Start: 01-03-2018 INCENTIVE SPIROMETRY RT VERO Start: 01-03-2018 PULSE OXIMETRY, CONTINUOUS VERO BAGHDY Start: 01-03-2018 CULTURE BLOOD #1 VERO Start: 01-03-2018 Microscopic examinat ion of blood, culture VERO BAG Start: 01-03-2018 INCENTIVE SPIROMETRY RT VERO BAG Start: 01-03-2018 INCENTIVE SPIROMETRY RT VERO BAG Start: 01-03-2018 PULSE OXIMETRY, CONTINUOUS VERO BAG Start: 01-03-2018 INCENTIVE SPIROMETRY RT VERO BAG Start: 01-03-2018 INCENTIVE SPIROMETRY RT VERO BAG Start: 01-03-2018 PULSE OXIMETRY, CONTINUOUS VERO BAG Start: 01-03-2018 INCENTIVE SPIROMETRY RT VERO BAG Start: 01-03-2018 NURSING COMMUNICATION Y [facility] Start: 01-03-2018 INCENTIVE SPIROMETRY RT VERO Start: 01-03-2018 INCENTIVE SPIROMETRY RT VERO Start: 01-03-2018 INITIATE OXYGEN THER APY PROTOCOL VERO Start: 01-03-2018 PULSE OXIMETRY, CONTINUOUS VERO BAG Start: 01-03-2018 INCENTIVE SPIROMETRY RT VERO Start: 01-03-2018 INCENTIVE SPIROMETRY RT VERO Start: 01-03-2018 INCENTIVE SPIROMETRY RT VERO BAG Start: 01-03-2018 PULSE OXIMETRY, CONTINUOUS VERO BAG Start: 01-03-2018 INCENTIVE SPIROMETRY RT VERO Start: 01-03-2018 INCENTIVE SPIROMETRY RT VERO BAG Start: 01-03-2018 PULSE OXIMETRY, CONTINUOUS VERO BAG Start: 01-03-2018 INCENTIVE SPIROMETRY RT VERO Start: 01-02-2018 INCENTIVE SPIROMETRY RT VERO Start: 01-02-2018 PULSE OXIMETRY, CONTINUOUS VERO BAG Start: 01-02-2018 INCENTIVE SPIROMETRY RT VERO BAG Start: 01-02-2018 INCENTIVE SPIROMETRY RT VERO BAG Start: 01-02-2018 PULSE OXIMETRY, CONTINUOUS VERO BAG Start: 01-02-2018 INCENTIVE SPIROMETRY RT VERO BAG Start: 01-02-2018 INCENTIVE SPIROMETRY RT VERO BAG Start: 01-02-2018 PULSE OXIMETRY, CONTINUOUS VERO BAG Start: 01-02-2018 INCENTIVE SPIROMETRY RT VERO Start: 01-02-2018 INCENTIVE SPIROMETRY RT VERO Start: 01-02-2018 Drug tst prsmv instr mnt chem analyzers pr date Start: 01-02-2018 INCENTIVE SPIROMETRY RT VEOR Start: 01-02-2018 INITIATE OXYGEN THER APY PROTOCOL VERO Start: 01-02-2018 PULSE OXIMETRY, CONTINUOUS VERO Start: 01-02-2018 INCENTIVE SPIROMETRY RT VERO Start: 01-02-2018 Blood count complete auto&auto difrntl wbc VERO Start: 01-02-2018 INCENTIVE SPIROMETRY RT VERO Start: 01-02-2018 PULSE OXIMETRY, CONTINUOUS VERO Start: 01-02-2018 INCENTIVE SPIROMETRY RT Start: 01-02-2018 INCENTIVE SPIROMETRY RT VERO Start: 01-02-2018 PULSE OXIMETRY, CONTINUOUS VERO Start: 01-02-2018 INCENTIVE SPIROMETRY RT VERO Start: 01-01-2018 INCENTIVE SPIROMETRY RT Start: 01-01-2018 PULSE OXIMETRY, CONTINUOUS VERO Start: 01-01-2018 INCENTIVE SPIROMETRY RT Start: 01-01-2018 INCENTIVE SPIROMETRY RT Start: 01-01-2018 INCENTIVE SPIROMETRY RT Start: 01-01-2018 PULSE OXIMETRY, CONTINUOUS VERO Start: 01-01-2018 INCENTIVE SPIROMETRY RT Start: 01-01-2018 NURSING COMMUNICATION Y ACNIR Start: 01-01-2018 INCENTIVE SPIROMETRY RT VERO Start: 01-01-2018 PULSE OXIMETRY, CONTINUOUS VERO Start: 01-01-2018 INCENTIVE SPIROMETRY RT VERO Start: 01-01-2018 INCENTIVE SPIROMETRY RT VERO Start: 01-01-2018 INITIATE OXYGEN THER APY PROTOCOL Start: 01-01-2018 PULSE OXIMETRY, CONTINUOUS VERO Start: 01-01-2018 INCENTIVE SPIROMETRY RT VERO Start: 01-01-2018 Blood count complete auto&auto difrntl wbc VERO BAG Start: 01-01-2018 INCENTIVE SPIROMETRY RT VERO Start: 01-01-2018 INCENTIVE SPIROMETRY RT VERO Start: 01-01-2018 PULSE OXIMETRY, CONTINUOUS VERO HD Start: 01-01-2018 INCENTIVE SPIROMETRY RT VERO Start: 01-01-2018 INCENTIVE SPIROMETRY RT VERO Start: 01-01-2018 PULSE OXIMETRY, CONTINUOUS VERO BAG Start: 01-01-2018 INCENTIVE SPIROMETRY RT VERO Start: 01-01-2018 INCENTIVE SPIROMETRY RT VERO Start: 12-31-2017 INCENTIVE SPIROMETRY RT VERO Start: 12-31-2017 PULSE OXIMETRY, CONTINUOUS VERO Start: 12-31-2017 INCENTIVE SPIROMETRY RT VERO Start: 12-31-2017 Fluoro central venou s access dev placement VERO Start: 12-31-2017 Insj prph 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 age 5 yr/> VERO Start: 12-31-2017 Us vasc access sits vsl patency ndl entry VERO Start: 12-31-2017 INCENTIVE SPIROMETRY RT VERO Start: 12-31-2017 INCENTIVE SPIROMETRY RT VERO Start: 12-31-2017 PULSE OXIMETRY, CONTINUOUS VERO Start: 12-31-2017 INCENTIVE SPIROMETRY RT VERO Start: 12-31-2017 INCENTIVE SPIROMETRY RT VERO Start: 12-31-2017 PULSE OXIMETRY, CONTINUOUS VERO Start: 12-31-2017 INCENTIVE SPIROMETRY RT VERO Start: 12-31-2017 INSERT PICC LINE VERO Start: 12-31-2017 MISCELLANEOUS NURSIN G CARE ORDER (SPECIFY) VERO Start: 12-31-2017 NOTIFY PHYSICIAN (SPECIFY) VERO Start: 12-31-2017 NURSING COMMUNICATION Y ACOUB Start: 12-31-2017 INCENTIVE SPIROMETRY RT VERO Start: 12-31-2017 INCENTIVE SPIROMETRY RT VERO Start: 12-31-2017 INITIATE OXYGEN THER APY PROTOCOL VERO Start: 12-31-2017 PULSE OXIMETRY, CONTINUOUS VERO Start: 12-31-2017 Blood count complete auto&auto difrntl wbc VERO Start: 12-31-2017 INCENTIVE SPIROMETRY RT VERO Start: 12-31-2017 INCENTIVE SPIROMETRY RT VERO Start: 12-31-2017 PULSE OXIMETRY, CONTINUOUS VERO Start: 12-31-2017 INCENTIVE SPIROMETRY RT VERO Start: 12-31-2017 INCENTIVE SPIROMETRY RT VERO Start: 12-31-2017 Culture bacterial bl ood aerobic w/id isolates Start: 12-31-2017 CULTURE BLOOD #1 Start: 12-31-2017 Microscopic examinat ion of blood, culture VERO Start: 12-31-2017 INCENTIVE SPIROMETRY RT Start: 12-31-2017 PULSE OXIMETRY, CONTINUOUS Start: 12-31-2017 INCENTIVE SPIROMETRY RT Start: 12-30-2017 INCENTIVE SPIROMETRY RT Start: 12-30-2017 PULSE OXIMETRY, CONTINUOUS Start: 12-30-2017 INCENTIVE SPIROMETRY RT Start: 12-30-2017 INCENTIVE SPIROMETRY RT Start: 12-30-2017 PULSE OXIMETRY, CONTINUOUS Start: 12-30-2017 INCENTIVE SPIROMETRY RT Start: 12-30-2017 INCENTIVE SPIROMETRY RT VERO Start: 12-30-2017 INCENTIVE SPIROMETRY RT VERO Start: 12-30-2017 INCENTIVE SPIROMETRY RT VERO Start: 12-30-2017 PULSE OXIMETRY, CONTINUOUS VERO Start: 12-30-2017 INCENTIVE SPIROMETRY RT VERO Start: 12-30-2017 NURSING COMMUNICATION Y Start: 12-30-2017 Blood count complete auto&auto difrntl wbc VERO Start: 12-30-2017 Comprehensive metabolic panel Start: 12-30-2017 INCENTIVE SPIROMETRY RT VERO BAGHDY Start: 12-30-2017 Ct maxillofacial w/o contrast material VERO BAGHDY Start: 12-30-2017 INITIATE OXYGEN THER APY PROTOCOL VERO BAGHDY Start: 12-30-2017 PULSE OXIMETRY, CONTINUOUS VERO BAGHDY Start: 12-30-2017 INCENTIVE SPIROMETRY RT VERO BAGHDY Start: 12-30-2017 INCENTIVE SPIROMETRY RT VERO BAGHDY Start: 12-30-2017 INCENTIVE SPIROMETRY RT VERO BAGHDY Start: 12-30-2017 PULSE OXIMETRY, CONTINUOUS VERO BAGHDY Start: 12-30-2017 INCENTIVE SPIROMETRY RT VERO BAGHDY Start: 12-30-2017 INCENTIVE SPIROMETRY RT VERO BAGHDY Start: 12-30-2017 PULSE OXIMETRY, CONTINUOUS VERO BAGHDY Start: 12-30-2017 INCENTIVE SPIROMETRY RT VERO BAGHDY Start: 12-29-2017 INCENTIVE SPIROMETRY RT VERO BAGHDY Start: 12-29-2017 PULSE OXIMETRY, CONTINUOUS VERO BAGHDY Start: 12-29-2017 INCENTIVE SPIROMETRY RT VERO BAGHDY Start: 12-29-2017 INCENTIVE SPIROMETRY RT VERO BAGHDY Start: 12-29-2017 DIET GENERAL VERO BAG HDY Start: 12-29-2017 PULSE OXIMETRY, CONTINUOUS VERO BAGHDY Start: 12-29-2017 INCENTIVE SPIROMETRY RT VERO BAGHDY Start: 12-29-2017 ALTAGRACIA (VAGINAL, RESPIRATORY) VERO BAGHDY Start: 12-29-2017 AFB STAIN VERO BAG HDY Start: 12-29-2017 Smr prim src fluores cent&/afs [...] bact xcpt urine blood/stool aerobic isol VERO Start: 12-29-2017 INCENTIVE SPIROMETRY RT VERO Start: 12-29-2017 ACID FAST CULTURE WITH SMEAR VERO Start: 12-29-2017 INCENTIVE SPIROMETRY RT VERO HD Start: 12-29-2017 PULSE OXIMETRY, CONTINUOUS VERO BAGHDY Start: 12-29-2017 CYTOLOGY, NON-SOLAR INSTALLATION TECHNICIAN YACOU B Start: 12-29-2017 INCENTIVE SPIROMETRY RT VERO Start: 12-29-2017 INCENTIVE SPIROMETRY RT VERO Start: 12-29-2017 INITIATE OXYGEN THER APY PROTOCOL VERO Start: 12-29-2017 PULSE OXIMETRY, CONTINUOUS VERO BAGHD Start: 12-29-2017 INCENTIVE SPIROMETRY RT VERO Start: 12-29-2017 Blood count complete automated VERO Start: 12-29-2017 Prothrombin time VERO Start: 12-29-2017 INCENTIVE SPIROMETRY RT VERO Start: 12-29-2017 INCENTIVE SPIROMETRY RT VERO Start: 12-29-2017 PULSE OXIMETRY, CONTINUOUS VERO BAGHD Start: 12-29-2017 INCENTIVE SPIROMETRY RT VERO Start: 12-29-2017 IP CONSULT TO NAYA WEBER DEPENDENCY VERO Start: 12-29-2017 INCENTIVE SPIROMETRY RT VERO Start: 12-29-2017 PULSE OXIMETRY, CONTINUOUS VERO BAGHD Start: 12-29-2017 INCENTIVE SPIROMETRY RT VERO Start: 12-28-2017 INCENTIVE SPIROMETRY RT VERO Start: 12-28-2017 PULSE OXIMETRY, CONTINUOUS VERO BAGHDY Start: 12-28-2017 INCENTIVE SPIROMETRY RT VERO Start: 12-28-2017 INCENTIVE SPIROMETRY RT VERO Start: 12-28-2017 INCENTIVE SPIROMETRY RT VERO Start: 12-28-2017 PULSE OXIMETRY, CONTINUOUS VERO BAGHDY Start: 12-28-2017 INCENTIVE SPIROMETRY RT VERO Start: 12-28-2017 INCENTIVE SPIROMETRY RT VERO Start: 12-28-2017 PULSE OXIMETRY, CONTINUOUS VERO BAGHDY Start: 12-28-2017 Blood count complete automated VERO BAG Start: 12-28-2017 INCENTIVE SPIROMETRY RT VERO BAGHDY Start: 12-28-2017 INCENTIVE SPIROMETRY RT VERO BAGHDY Start: 12-28-2017 Radiologic exam ches t single view VERO BAGHDY Start: 12-28-2017 INCENTIVE SPIROMETRY RT VERO BAGHDY Start: 12-28-2017 INITIATE OXYGEN THER APY PROTOCOL VERO BAGHDY Start: 12-28-2017 PULSE OXIMETRY, CONTINUOUS VERO BAGHDY Start: 12-28-2017 INCENTIVE SPIROMETRY RT VERO BAGHD Start: 12-28-2017 INCENTIVE SPIROMETRY RT VERO BAGHD Start: 12-28-2017 PULSE OXIMETRY, CONTINUOUS VERO BAGHDY Start: 12-28-2017 INCENTIVE SPIROMETRY RT VERO Start: 12-28-2017 INCENTIVE SPIROMETRY RT VERO BAGHDY Start: 12-28-2017 FULL CODE VERO BAG Start: 12-28-2017 NURSING COMMUNICATION Y ACOUB Start: 12-28-2017 PULSE OXIMETRY, CONTINUOUS VERO BAGHDY Start: 12-28-2017 VERIFY INFORMED CONSENT VERO BAG Start: 12-28-2017 INCENTIVE SPIROMETRY RT VERO Start: 12-28-2017 INCENTIVE SPIROMETRY RT VERO Start: 12-27-2017 INCENTIVE SPIROMETRY RT VERO HD Start: 12-27-2017 INCENTIVE SPIROMETRY RT VERO BAGHDY Start: 12-27-2017 AMBULATE PATIENT VERO BAGHD Start: 12-27-2017 ASSESS GAG REFLEX YACOU B BAG Start: 12-27-2017 INITIATE OXYGEN THER APY PROTOCOL VERO BAGHDY Start: 12-27-2017 TOBACCO CESSATION EDUCATION VERO BAGHDY Start: 12-27-2017 VITAL SIGNS VERO BAG HDY Start: 12-27-2017 WOUND CARE VERO BAG HDY Start: 12-27-2017 ADVANCE DIET TOLE RATED (NURSING COMMUNICATION) VERO BAGHD Start: 12-27-2017 INCENTIVE SPIROMETRY RT VERO BAGHDY Start: 12-27-2017 Echo transesophag r- t 2d w/prb img acquisj i&r VERO DIANE Start: 12-27-2017 INCENTIVE SPIROMETRY RT VERO Start: 12-27-2017 INCENTIVE SPIROMETRY RT VERO BAGMINERVA Start: 12-27-2017 IP CONSULT TO CARDIOLOGY VERO Start: 12-27-2017 IP CONSULT TO PAIN MANAGEMENT VERO Start: 12-27-2017 IP CONSULT TO INFECT IOUS DISEASES VERO Start: 12-27-2017 INCENTIVE SPIROMETRY RT VERO [...] TIBC VERO JAYNE GILBERT Start: 12-27-2017 RETICULOCYTES VERO JAYNE GILBERT Start: 12-27-2017 INCENTIVE SPIROMETRY RT VERO BAGMINERVA Start: 12-27-2017 INCENTIVE SPIROMETRY RT VERO Start: 12-27-2017 INCENTIVE SPIROMETRY RT VERO Start: 12-27-2017 INCENTIVE SPIROMETRY RT VERO Start: 12-27-2017 INCENTIVE SPIROMETRY RT VERO Start: 12-27-2017 INCENTIVE SPIROMETRY RT VERO Start: 12-27-2017 INCENTIVE SPIROMETRY RT VERO Start: 12-26-2017 INCENTIVE SPIROMETRY RT VERO Start: 12-26-2017 ACID FAST CULTURE WITH SMEAR VERO Start: 12-26-2017 INCENTIVE SPIROMETRY RT VERO Start: 12-26-2017 RAPID INFLUENZA A/B ANTIGENS VERO BAGHDY Start: 12-26-2017 ACID FAST CULTURE WITH SMEAR VERO BAGHDY Start: 12-26-2017 INCENTIVE SPIROMETRY RT VERO BAGHDY Start: 12-26-2017 Apolipoprotein each JEWEL OUB BAGHDY Start: 12-26-2017 Culture bacterial bl ood aerobic w/id isolates VERO BAGHDY Start: 12-26-2017 HEPATITIS B CORE ANT IBODY, TOTAL VREO BAGHDY Start: 12-26-2017 HEPATITIS C ANTIBODY YA [...] BAGHDY Start: 12-26-2017 TOBACCO CESSATION EDUCATION VERO BAGHDY Start: 12-26-2017 VITAL SIGNS VERO BAG HDY Start: 12-26-2017 PATIENT STATUS (DIRECT) VERO BAGHDY Start: 12-25-2017 Culture bacterial bl ood aerobic w/id isolates IVAN FERNANDEZ Start: 12-25-2017 CULTURE BLOOD #1 TARA Damon FERNANDEZ Start: 12-25-2017 Microscopic examinat ion of blood, culture IVAN FERNANDEZ Start: 12-25-2017 URINE DRUG SCREEN, COMPREHENSIVE IVAN FERNANDEZ Start: 12-25-2017 Urine test visual color cmprsn meths IVAN FERNANDEZ Start: 12-25-2017 URINE RT REFLEX TO CULTURE IVAN JIM Start: 12-25-2017 CK IVAN TO BEY Start: 12-25-2017 Comprehensive metabolic panel IVAN JIM Start: 12-25-2017 LACTIC ACID, PLASMA TANIKA HARD JIM Start: 12-25-2017 Prothrombin time TARA D JIM Start: 12-25-2017 TROPONIN IVAN TO BEY Start: 12-25-2017 Radiologic exam chest 2 views IVAN JIM Start: 12-25-2017 Blood count complete auto&auto difrntl wbc IVAN JIM Start: 12-25-2017 EKG 12-LEAD IVAN TO BEY Start: 12-25-2017 SALINE LOCK IV IVAN FERNANDEZ Payers Date Payer Category Payer Unknown 2018 Medicaid [id number] 2017 Medicaid ACUTE 04-15-2016 Medicaid [id number] 1985 Unknown [id number] 2.16.84 0.1.700195.3.579.2.185 1985 Unknown [id number] 2.16.8 40.1.395354.3.579.2.182 1985 Unknown [id number] 2.16. 840.1.572157.3.579.2.732 1985 Unknown [id number] 2.16.84 0.1.960205.3.579.2.593 1985 Unknown [id number] 2.16.84 0.1.905298.3.579.2.593 1985 Unknown [id number] 2.16.84 0.1.123724.3.579.2.593 1985 Unknown [id number] 2.16.84 0.1.896587.3.579.2.593 1985 Unknown [id number] 2.16.84 0.1.910575.3.579.2.593 1985 Unknown [id number] 2.16. 840.1.267800.3.579.2.196 1985 Unknown [id number] 2.16. 840.1.829813.3.579.2.196 1985 Unknown [id number] 2.16. 840.1.004941.3.579.2.196 1985 Unknown [id number] 2.16.84 0.1.275296.3.579.2.9 1985 Unknown [id number] 2.16.84 0.1.228383.3.579.2.1258 1985 Unknown [id number] 2.16.84 0.1.714037.3.579.2.9 1985 Unknown [id number] 2.16.840 .1.731339.3.579.2.1258 1985 Unknown [id number] 2.16.840 .1.263958.3.579.2.1258 1985 Unknown [id number] 2.16.840 .1.814513.3.579.2.1258 1985 Unknown [id number] 2.16.840 .1.079440.3.579.2.9 1985 Unknown [id number] 2.16.840. 1.616888.3.579.2.9 02-15-1959 Unknown [id number] Self-pay Unknown [id number] 2.16.8 40.1.497721.3.579.2.355 Summary Purpose Family History No Family History [...] section and content) DATE CREATED AUTHOR 02/04/2018 [facility] DATE CREATED AUTHOR AUTHOR'S ORGANIZ ATION 02/19/2018 [facility] DATE CREATED AUTHOR AUTHOR'S ORGANIZ ATION 05/02/2018 [facility] DATE CREATED AUTHOR AUTHOR'S ORGANIZ ATION [facility] DATE CREATED AUTHOR AUTHOR'S ORGANIZ ATION 06/29/2022 [facility] DATE CREATED AUTHOR AUTHOR'S ORGANIZ ATION 07/25/2022 [facility] DATE CREATED AUTHOR AUTHOR'S ORGANIZ ATION 04/20/2023 [facility] FOR RECORDS PERTAINING TO PATIENTS WHO [...] BE BASED ON THE PRIMARY CLINICAL RECORDS. [employer] provides no warranty or guarantee of the accuracy or completeness of information in this document.
[2023-04-20 16:33] LABS: Basophils Absolute Auto 0.1 10^3/uL (0.0-0.1); Basophils Percent Auto 1.4 % (0.2-2.0); Eosinophils Absolute Auto 0.3 10^3/uL (0.0-0.7); Eosinophils Percent Auto 5.7 % (0.9-7.0); Hematocrit 36.3 % (36.0-48.0); Hemoglobin 11.4 g/dL (12.0-16.0); Immature Granulocytes Abs Auto 0.01 10^3/uL (0.00-0.03); Immature Granulocytes Pct Auto 0.2 % (0.0-0.5); Lymphocytes Absolute Auto 1.3 10^3/uL (1.2-3.8); Lymphocytes Percent Auto 26.2 % (20.5-60.0); Mean Corpuscular HGB Conc 31.4 g/dL (29.9-35.2); Mean Corpuscular Hemoglobin 27.5 pg (26.7-34.0); Mean Corpuscular Volume 87.5 fL (81.0-99.0); Mean Platelet Volume 9.8 fL (9.5-13.5); Monocytes Absolute Auto 0.3 10^3/uL (0.3-0.8); Monocytes Percent Auto 6.7 % (1.7-12.0); Neutrophils Percent Auto 59.8 % (43.0-75.0); Platelet Count 214 10^3/uL (150-450); Red Blood Count 4.15 10^6/uL (4.20-5.40); Red Cell Distribution Width 14.6 % (11.0-15.0); White Blood Count 4.9 10^3/uL (4.0-11.0)
[2023-04-20 16:49] LABS: Alanine Aminotransferase 23 U/L (14-59); Albumin Level 3.8 g/dL (3.4-5.0); Alkaline Phosphatase 54 U/L (46-116); Anion Gap 12.1; Aspartate Amino Transferase 15 U/L (15-37); BUN Creatinine Ratio 23.5; Bilirubin Total 0.4 mg/dL (0.2-1.0); Calcium 8.8 mg/dL (8.5-10.1); Carbon Dioxide 28.6 mmol/L (21.0-32.0); Chloride 105 mmol/L (98-107); Estimated GFR (African America >60 (>=60); Estimated GFR (Non-African Ame >60 (>=60); Globulin 3.8 g/dL; Glucose 97 mg/dL (74-106); Potassium 4.7 mmol/L (3.5-5.1); Sodium 141 mmol/L (136-145); Total Protein 7.6 g/dL (6.4-8.2)
[2023-04-20 18:04] LABS: D Dimer 1.03 mg/L FEU (<=0.59)
== END 2023-04-20 16:13 | disposition home or self-care (01) ==
LOC: LAB 16:12
PROVIDERS: PCP Internal Medicine; Visit Provider Internal Medicine
DX: D64.9 Anemia, unspecified (principal); R07.89 Other chest pain; M89.8X1 Other specified disorders of bone, shoulder
CPT/HCPCS: 36415; 80053; 85025; 85378

== ENCOUNTER 2023-04-20 18:37 | Emergency (ER) | payer MEDICAID, SELFPAY ==
[2023-04-20] VITALS (10 sets, daily range): BP systolic 160; BP diastolic 100; PULSE 58–86; RESP 10–29; TEMP 37; O2SAT 99; BMI 49.3
--- OUTSIDE RECORDS SUMMARY | 2023-04-20 18:43 | XMS_ITS | CCD ---
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 Name Role Phone IVAN FERNANDEZ Unavailable Unavailable [...] Translations: [HYDROCODONE-ACETA MINOPHEN] Drug Allergy 9 [facility] (2 sources) traMADol; Translations: [TRAMADOL] Drug All[facility] 6 [facility] ([facility] source) Acetaminophen / HYDROcodone Drug Allergy 6 [facility] Repository (1 source) Codeine Drug Allergy 9 [facility] Repository (1 source) Penicillin Drug Allergy 0 [facility] Repository Problems Active Problems Problem [...] Liliane Devries PA-C 07/18/22 11:45 EDT Normal [facility] Otolaryngology Office/Clinic Noteon 07-06-2022 Otolaryngology Office/Clinic Note [...] g, 0 Refill(s), 07/20/22 15:17:00 EDT, Pharmacy: [facility]/pharmacy #[id number] Medical Decision Making Chronic conditions NOT treated [...] Oral Jitendra (more content not included)... Normal [facility] US PREG TVon 06-26-2022 US PREG TV [...] RODRIGO ACOSTA Date: 2022-06-26 09:18 Normal [facility] Covid-19 PCR ([facility])on SARS-CoV-2 (COVID-19) RNA JANET+probe Ql (Unsp spec) Not detected Normal NOT DETECTED [facility] Comment on above: Result Comment: This test is not yet approved or cleared by the [place] FDA. When there are no FDA-approved or cleared tests available, and other criteria are met, FDA can make tests available under an emergency access mechanism called an Emergency Use Authorization (EUA). The EUA for this test is supported by the [employer] Repairer of Health and Human Service's (HHS's) [...] consistent with SARS-CoV-2. Performed By: #### C [facility] #### [facility] [address] [place] [address] Dr. Ja Cohen INFLUENZA A AND B AGon 06-16 INFLUANEGH SEE BELOW Normal [facility] Comment on above: Result Comment: Nega tive for Flu A protein angiten. Infection due to Flu A cannot be ruled out. Flu A angiten in the sample may be below the detection limit of the test. Performed By: #### I NFLUAB #### [facility] [address] [place] [address] Dr. Ja Cohen INFLUBNEGH SEE BELOW Normal [facility] Comment on above: Result Comment: Nega tive for Flu B protein antigen. Infection due to Flu B cannot be ruled out. Flu B antigen in the sample may be below the detection limit of the test. Performed By: #### I NFLUAB #### [facility] [address] [place] [address] Dr. Ja Cohen INFLUENZA A AG Negative Normal NEGATIVE SEE COMMENT [facility] Comment on above: Performed By: #### I NFLUAB #### [facility] [address] [place] [address] Dr. Ja Cohen INFLUENZA B AG Negative Normal NEGATIVE SEE COMMENT [facility] Comment on above: Performed By: #### I NFLUAB #### [facility] [address] [place] [address] Dr. Ja Cohen SYMPTOMATIC COVID-19 ANTIGEN on 06-16-2022 EUA Statement SEE BELOW Normal [facility] Comment on above: Result [...] sooner. Performed By: #### C VDAGS #### [facility] [address] [place] [address] Dr. Ja Cohen SARS-CoV-2 (COVID-19) RNA JANET+probe Ql (Unsp spec) Negative Normal NEGATIVE [facility] Comment on above: Performed By: #### C VDAGS #### [facility] [address] [place] [address] Dr. Ja Cohen PREG QUANT HCGon 06-11-2022 HCG QUANT 00983 mIU/mL Normal [facility] Comment on above: Performed By: #### P REGQNT #### [facility] [address] [place] [address] Dr. Ja Cohen HCG RANGE SEE BELOW Normal [facility] Comment on above: Result Comment: 5-50 0.2-1 WEEK 50-500 1-2 WEEKS 100-5,000 2-3 WEEKS 500-10,000 3-4 WEEKS 1,000-50,000 4-5 WEEKS 10,000-100,000 5-6 WEEKS 15,000-200,000 6-8 WEEKS 10,000-100,000 2-3 MONTHS Performed By: #### P REGQNT #### [facility] [address] [place] [address] Dr. Ja Cohen ECHOCARDIO M/2D COMPLETEon 0 08-11-2021 ECHOCARDIO M/2D COMPLETE Patient: RYAN HALL Exam Date: 08/11/2021 : 1985 Gender:F Ordering : SHAIKH Addy GARLAND . Admission #: [id number] Family : Order #: [id number] CLICK HERE TO VIEW EXAM ECHOCARDIOGRAM REPORT [...] Area(A4C): 23.40 cm2 Left Atrium Systolic Volume(A2C): 47614 mm3 Left Atrium Systolic Volume(A4C): 44321 mm3 Mitral Valve MV E to A Ratio: 1.90 MV Mean Gradient: 1 mm[Hg] Deceleration [place]: 6410 mm/s2 Mitral Valve A-Wave Peak Velocity: [...] Mederos M.D. on 08/11/2021 at 12:50 Normal [facility] AFB Culture with Stainon AFB Stain SEE NOTE Normal [facility] Comment on above: Result Comment: Nega tive for Acid Fast Bacteria.Less than 5 mL of specimen received.A minimum of 5 mL of sputum or fluid is recommendedfor recovery of acid fast bacilli (AFB).Volumes less than 5 mL are suboptimal and maycompromise recovery of AFB from culture. Final SEE NOTE Normal [facility] Comment on above: Result Comment: Cult ure negative for acid fast bacilliPerformed by [employer],[address] [facility] [address] unb.[employer], Artur Augstin MD - Lab. Director Preliminary SEE NOTE [facility] Comment on above: Result Comment: Spec imen received and in progress.Positive culture results are called as soon as detected.Final report to follow in seven to eight weeksPerformed by [employer],[address] [facility] [address] upv.[employer], Artur Agustin MD - Lab. Director AFB Stain SEE NOTE Normal [facility] Comment on above: Order Comment: CALL Murdock LC1W tel. [phone], called hgb to ramila oseguera rn [facility] 1w [facility] called to and read back by ramila oseguera on 1w, 12/27/201706:44, by RAYSHAWN Result Comment: Nega tive for Acid Fast Bacteria. Order Comment: Bronc h wash RULBronch Wash RUL Final SEE NOTE Normal [facility] Comment on above: Order Comment: Bronc h wash RULBronch Wash RUL Result Comment: Cult ure negative for acid fast bacilliPerformed by [employer],[address] [facility], [facility] [address] kfl.[employer], Artur Agustin MD - Lab. Director Order Comment: CALL Murdock LC1W tel. [phone], called hgb to ramila oseguera rn on 1w by scbHematology results called to and read back by ramila oseguera on 1w, 12/27/201706:44, by [facility] Basic Metabolic Panelon 01-15 Anion gap 3 molar conc 10 mmol/L Normal 7-13 [facility] Calcium mass conc 8.7 mg/dL Normal 8.6-10.2 [facility] Chloride molar conc 105 mmol/L Normal 98-107 [facility] CO2 molar conc 26 mmol/L Normal 22-29 [facility] Creatinine mass conc 0.60 mg/dL Normal 0.50-0.90 [facility] GFR/1.73 sq M predicted among blacks MDRD vol rate/area (S/P/Bld) mL/min/{1.73_m2} Normal >60 [facility] Comment on above: Result Comment: >60 mL/min/1.73m2 EGFR, calc. for ages 18 and older using theMDRD formula (not corrected for weight), is valid for stablerenal function. GFR/1.73 sq M.predicted MDRD vol rate/area mL/min/{1.73_m2} Normal >60 [facility] Comment on above: Result Comment: >60 mL/min/1.73m2 EGFR, calc. for ages 18 and older using theMDRD formula (not corrected for weight), is valid for stablerenal function. Glucose mass conc 101 mg/dL Normal 74-109 [facility] Potassium molar conc 4.5 mmol/L Normal 3.5-5.1 [facility] Sodium molar conc 141 mmol/L Normal 132-144 [facility] Urea nitrogen mass conc 15 mg/dL Normal 6-20 [facility] CBC With Platelet No Differe ntialon 02-01-2018 Erythrocyte distribution width Auto Ratio (RBC) 23.7 % Critically high 11.5-14.5 [facility] Hematocrit Auto Volume Fraction (Bld) 28.0 % Low 37.0-47.0 [facility] Hemoglobin mass conc (Bld) 9.3 g/dL Low 12.0-16.0 [facility] MCH Auto Entitic mass (RBC) 29.1 pg Normal 27.0-31.3 [facility] MCHC Auto mass conc (RBC) 33.1 % Normal 33.0-37.0 [facility] MCV Auto Entitic volume (RBC) 87.9 fL Normal 82.0-100.0 [facility] Platelets Auto #/vol (Bld) 229 10*3/uL Normal 130-400 [facility] RBC Auto #/vol (Bld) 3.19 10*6/uL Low 4.20-5.40 [facility] WBC Auto #/vol (Bld) 2.7 10*3/uL Low 4.8-10.8 [facility] Culture, Funguson 01-29-2018 Final SEE NOTE Normal [facility] Comment on above: Order Comment: CALL Murdock LC1W tel. [phone], called hgb to ramila oseguera rn on 1w by scbHematology results called to and read back by ramila oseguera on 1w, 12/27/201706:44, by BON Result Comment: Cult ure negative for FungiPerformed by [employer],[address] [place] [id number] mor.[employer], Artur Agustin MD - Lab. Director Basic Metabolic Panelon 01-15 Anion gap 3 molar conc 9 mmol/L Normal 7-13 [facility] Calcium mass conc 9.5 mg/dL Normal 8.6-10.2 [facility] Chloride molar conc 106 mmol/L Normal 98-107 [facility] CO2 molar conc 27 mmol/L Normal 22-29 [facility] Creatinine mass conc 0.71 mg/dL Normal 0.50-0.90 [facility] GFR/1.73 sq M predicted among blacks MDRD vol rate/area (S/P/Bld) mL/min/{1.73_m2} Normal >60 [facility] Comment on above: Result Comment: >60 mL/min/1.73m2 EGFR, calc. for ages 18 and older using theMDRD formula (not corrected for weight), is valid for stablerenal function. GFR/1.73 sq M.predicted MDRD vol rate/area mL/min/{1.73_m2} Normal >60 [facility] Comment on above: Result Comment: >60 mL/min/1.73m2 EGFR, calc. for ages 18 and older using theMDRD formula (not corrected for weight), is valid for stablerenal function. Glucose mass conc 93 mg/dL Normal 74-109 [facility] Potassium molar conc 4.7 mmol/L Normal 3.5-5.1 [facility] Sodium molar conc 142 mmol/L Normal 132-144 [facility] Urea nitrogen mass conc 14 mg/dL Normal 6-20 [facility] CBC With Platelet and Differ entialon 01-25-2018 Anisocytosis Auto Ql (Bld) PRESENT Normal [facility] Erythrocyte distribution width Auto Ratio (RBC) 28.7 % Critically high 11.5-14.5 [facility] Hematocrit Auto Volume Fraction (Bld) 24.9 % Low 37.0-47.0 [facility] Hemoglobin mass conc (Bld) 8.3 g/dL Low 12.0-16.0 [facility] MCH Auto Entitic mass (RBC) 28.2 pg Normal 27.0-31.3 [facility] MCHC Auto mass conc (RBC) 33.1 % Normal 33.0-37.0 [facility] MCV Auto Entitic volume (RBC) 85.0 fL Normal 82.0-100.0 [facility] Platelets Auto #/vol (Bld) 225 10*3/uL Normal 130-400 [facility] RBC Auto #/vol (Bld) 2.93 10*6/uL Low 4.20-5.40 [facility] Basophils Auto #/vol (Bld) 0.0 10*3/uL Normal 0.0-0.2 [facility] Basophils/100 WBC Auto (Bld) 1.0 % Normal [facility] Eosinophils Auto #/vol (Bld) 0.3 10*3/uL Normal 0.0-0.7 [facility] Eosinophils/100 WBC Auto (Bld) 5.4 % Normal [facility] Lymphocytes Auto #/vol (Bld) 1.7 10*3/uL Normal 1.0-4.8 [facility] Lymphocytes/100 WBC Auto (Bld) 37.1 % Normal [facility] Monocytes Auto #/vol (Bld) 0.2 10*3/uL Normal 0.2-0.8 [facility] Monocytes/100 WBC Auto (Bld) 5.1 % Normal [facility] Neutrophils Auto #/vol (Bld) 2.4 10*3/uL Normal 1.4-6.5 [facility] Neutrophils/100 WBC Auto (Bld) 51.4 % Normal [facility] WBC Auto #/vol (Bld) 4.7 10*3/uL Low 4.8-10.8 [facility] Culture, Funguson 01-24-2018 Final SEE NOTE Normal [facility] Comment on above: Order Comment: Bronc h Wash LLLBronch Wash LLL Result Comment: Cult ure POSITIVE forYeast not Cryptococcus speciesPerformed by [employer],[address] [facility] [place] [address] akn.[employer], Artur Agustin MD - Lab. Director Preliminary SEE NOTE Normal [facility] Comment on above: Order Comment: Bronc h Wash LLLBronch Wash LLL Result Comment: Cult ure POSITIVE forYeast not Cryptococcus speciesPerformed by [employer],[address] [facility] [place] [address] dsg.[employer], Artur Agustin MD - Lab. Director Basic Metabolic Panelon 12-0 Anion gap 3 molar conc 10 mmol/L Normal 7-13 [facility] Calcium mass conc 9.4 mg/dL Normal 8.6-10.2 [facility] Chloride molar conc 102 mmol/L Normal 98-107 [facility] CO2 molar conc 27 mmol/L Normal 22-29 [facility] Creatinine mass conc 0.70 mg/dL Normal 0.50-0.90 [facility] GFR/1.73 sq M predicted among blacks MDRD vol rate/area (S/P/Bld) mL/min/{1.73_m2} Normal >60 [facility] Comment on above: Result Comment: >60 mL/min/1.73m2 EGFR, calc. for ages 18 and older using theMDRD formula (not corrected for weight), is valid for stablerenal function. GFR/1.73 sq M.predicted MDRD vol rate/area mL/min/{1.73_m2} Normal >60 [facility] Comment on above: Result Comment: >60 mL/min/1.73m2 EGFR, calc. for ages 18 and older using theMDRD formula (not corrected for weight), is valid for stablerenal function. Glucose mass conc 73 mg/dL Low 74-109 [facility] Potassium molar conc 4.6 mmol/L Normal 3.5-5.1 [facility] Sodium molar conc 139 mmol/L Normal 132-144 [facility] Urea nitrogen mass conc 15 mg/dL Normal 6-20 [facility] CBC With Platelet No Differe ntialon 01-21-2018 Erythrocyte distribution width Auto Ratio (RBC) 24.9 % Critically high 11.5-14.5 [facility] Hematocrit Auto Volume Fraction (Bld) 24.4 % Low 37.0-47.0 [facility] Hemoglobin mass conc (Bld) 8.1 g/dL Low 12.0-16.0 [facility] MCH Auto Entitic mass (RBC) 28.3 pg Normal 27.0-31.3 [facility] MCHC Auto mass conc (RBC) 33.3 % Normal 33.0-37.0 [facility] MCV Auto Entitic volume (RBC) 85.0 fL Normal 82.0-100.0 [facility] Platelets Auto #/vol (Bld) 184 10*3/uL Normal 130-400 [facility] RBC Auto #/vol (Bld) 2.88 10*6/uL Low 4.20-5.40 [facility] WBC Auto #/vol (Bld) 4.6 10*3/uL Low 4.8-10.8 [facility] Basic Metabolic Panelon 11-2 Anion gap 3 molar conc 10 mmol/L Normal 7-13 [facility] Calcium mass conc 9.3 mg/dL Normal 8.6-10.2 [facility] Chloride molar conc 106 mmol/L Normal 98-107 [facility] CO2 molar conc 26 mmol/L Normal 22-29 [facility] Creatinine mass conc 0.93 mg/dL Critically high 0.50-0.90 [facility] GFR/1.73 sq M predicted among blacks MDRD vol rate/area (S/P/Bld) mL/min/{1.73_m2} Normal >60 [facility] Comment on above: Result Comment: >60 mL/min/1.73m2 EGFR, calc. for ages 18 and older using theMDRD formula (not corrected for weight), is valid for stablerenal function. GFR/1.73 sq M.predicted MDRD vol rate/area mL/min/{1.73_m2} Normal >60 [facility] Comment on above: Result Comment: >60 mL/min/1.73m2 EGFR, calc. for ages 18 and older using theMDRD formula (not corrected for weight), is valid for stablerenal function. Glucose mass conc 103 mg/dL Normal 74-109 [facility] Potassium molar conc 4.5 mmol/L Normal 3.5-5.1 [facility] Sodium molar conc 142 mmol/L Normal 132-144 [facility] Urea nitrogen mass conc 17 mg/dL Normal 6-20 [facility] CBC With Platelet and Differ entialon 01-11-2018 Anisocytosis Auto Ql (Bld) PRESENT Normal [facility] Erythrocyte distribution width Auto Ratio (RBC) 23.8 % Critically high 11.5-14.5 [facility] Hematocrit Auto Volume Fraction (Bld) 25.6 % Low 37.0-47.0 [facility] Hemoglobin mass conc (Bld) 8.4 g/dL Low 12.0-16.0 [facility] Hypochromia PRESENT Normal [facility] MCH Auto Entitic mass (RBC) 26.5 pg Low 27.0-31.3 [facility] MCHC Auto mass conc (RBC) 32.8 % Low 33.0-37.0 [facility] MCV Auto Entitic volume (RBC) 80.9 fL Low 82.0-100.0 [facility] Platelets Auto #/vol (Bld) 259 10*3/uL Normal 130-400 [facility] RBC Auto #/vol (Bld) 3.16 10*6/uL Low 4.20-5.40 [facility] Basophils Auto #/vol (Bld) 0.1 10*3/uL Normal 0.0-0.2 [facility] Basophils/100 WBC Auto (Bld) 1.5 % Normal [facility] Eosinophils Auto #/vol (Bld) 0.2 10*3/uL Normal 0.0-0.7 [facility] Eosinophils/100 WBC Auto (Bld) 4.2 % Normal [facility] Lymphocytes Auto #/vol (Bld) 1.9 10*3/uL Normal 1.0-4.8 [facility] Lymphocytes/100 WBC Auto (Bld) 40.0 % Normal [facility] Monocytes Auto #/vol (Bld) 0.1 10*3/uL Low 0.2-0.8 [facility] Monocytes/100 WBC Auto (Bld) 3.1 % Normal [facility] Neutrophils Auto #/vol (Bld) 2.4 10*3/uL Normal 1.4-6.5 [facility] Neutrophils/100 WBC Auto (Bld) 51.2 % Normal [facility] WBC Auto #/vol (Bld) 4.6 10*3/uL Low 4.8-10.8 [facility] Culture, Funguson 01-08-2018 Preliminary SEE NOTE Normal [facility] Comment on above: Order Comment: CALL Murdock LC1W tel. [phone], called hgb to ramila oseguera rn on 1w by scbHematology results called to and read back by ramila oseguera on 1w, 12/27/201706:44, by RAYSHAWN Result Comment: No Nathan starks, culture still in progress.Performed by [employer],[address] [place] [id number] giz.[employer], Artur Agustin MD - Lab. Director CBC With Platelet and Differ entialon 01-04-2018 Anisocytosis Auto Ql (Bld) 2+ Normal [facility] Bands 2 % Low 5-11 [facility] Basophils Auto #/vol (Bld) 0.1 10*3/uL Normal 0.0-0.2 [facility] Basophils/100 WBC Auto (Bld) 1.0 % Normal [facility] Eosinophils Auto #/vol (Bld) 0.2 10*3/uL Normal 0.0-0.7 [facility] Eosinophils/100 WBC Auto (Bld) 2.0 % Normal [facility] Lymphocytes Auto #/vol (Bld) 0.7 10*3/uL Low 1.0-4.8 [facility] Lymphocytes/100 WBC Auto (Bld) 9.0 % Normal [facility] Macrocytic 1+ Normal [facility] Microcytic 1+ Normal [facility] Monocytes Auto #/vol (Bld) 0.0 10*3/uL Low 0.2-0.8 [facility] Monocytes/100 WBC Auto (Bld) 4.4 % Normal [facility] Neutrophils Auto #/vol (Bld) 6.8 10*3/uL Critically high 1.4-6.5 [facility] Neutrophils/100 WBC Auto (Bld) 86.0 % Normal [facility] Ovalocytes 1+ Normal [facility] Platelet Slide Review Normal Normal [facility] Poikilocytosis 2+ Normal [facility] Tear Drop Cells 1+ Normal [facility] Erythrocyte distribution width Auto Ratio (RBC) 20.4 % Critically high 11.5-14.5 [facility] Hematocrit Auto Volume Fraction (Bld) 22.7 % Low 37.0-47.0 [facility] Hemoglobin mass conc (Bld) 7.4 g/dL Low 12.0-16.0 [facility] MCH Auto Entitic mass (RBC) 26.3 pg Low 27.0-31.3 [facility] MCHC Auto mass conc (RBC) 32.5 % Low 33.0-37.0 [facility] MCV Auto Entitic volume (RBC) 80.8 fL Low 82.0-100.0 [facility] Platelets Auto #/vol (Bld) 234 10*3/uL Normal 130-400 [facility] RBC Auto #/vol (Bld) 2.81 10*6/uL Low 4.20-5.40 [facility] WBC Auto #/vol (Bld) 7.7 10*3/uL Normal 4.8-10.8 [facility] Respiratory Virus Panel by Bret Solis 01-04-2018 Adenovirus B/E - PCR Not Detected Normal [facility] Adenovirus C - PCR Not Detected Normal [facility] Comment on above: Result Comment: The specimen submitted for testing did not meet ARUPsubmission guidelines. Testing was performed on a specimenthat did not meet validated type requirements.Performance characteristics of this assay may be affected.Interpret results with caution. Please refer to the [employer] Test Directory for information on specimenacceptability:[email or web address].Test developed and characteristics determined by [facility]. See Compliance Statement B: [employer]/CS.Performed by [employer],[address] [place] [id number] dbn.[employer], Artur Agustin MD - Lab. Director Human Metapneumovirus - PCR Not Detected Normal [facility] Human Rhinovirus - PCR Not Detected Normal [facility] Influenza A - PCR Not Detected Normal [facility] Influenza A 2009 H1N1 - PCR Not Detected Normal [facility] Influenza A H1 - PCR Not Detected Normal [facility] Influenza A H3 - PCR Not Detected Normal [facility] Influenza B - PCR Not Detected Normal [facility] Parainfluenza Virus 1 - PCR Not Detected Normal [facility] Parainfluenza Virus 2 - PCR Not Detected Normal [facility] Parainfluenza Virus 3 - PCR Not Detected Normal [facility] Respiratory Syncytial Virus A - PCR Not Detected Normal [facility] Respiratory Syncytial Virus B - PCR Not Detected Normal [facility] RVP Source Bronch Wash RUL Normal [facility] CBC With Platelet and Differ entialon 01-02-2018 Basophils Auto #/vol (Bld) 0.1 10*3/uL Normal 0.0-0.2 [facility] Basophils/100 WBC Auto (Bld) 0.8 % Normal [facility] Eosinophils Auto #/vol (Bld) 0.1 10*3/uL Normal 0.0-0.7 [facility] Eosinophils/100 WBC Auto (Bld) 1.6 % Normal [facility] Erythrocyte distribution width Auto Ratio (RBC) 19.9 % Critically high 11.5-14.5 [facility] Hematocrit Auto Volume Fraction (Bld) 22.0 % Low 37.0-47.0 [facility] Hemoglobin mass conc (Bld) 7.3 g/dL Low 12.0-16.0 [facility] Lymphocytes Auto #/vol (Bld) 1.2 10*3/uL Normal 1.0-4.8 [facility] Lymphocytes/100 WBC Auto (Bld) 19.0 % Normal [facility] MCH Auto Entitic mass (RBC) 26.8 pg Low 27.0-31.3 [facility] MCHC Auto mass conc (RBC) 33.4 % Normal 33.0-37.0 [facility] MCV Auto Entitic volume (RBC) 80.4 fL Low 82.0-100.0 [facility] Monocytes Auto #/vol (Bld) 0.3 10*3/uL Normal 0.2-0.8 [facility] Monocytes/100 WBC Auto (Bld) 4.9 % Normal [facility] Neutrophils Auto #/vol (Bld) 4.8 10*3/uL Normal 1.4-6.5 [facility] Neutrophils/100 WBC Auto (Bld) 73.7 % Normal [facility] Platelets Auto #/vol (Bld) 248 10*3/uL Normal 130-400 [facility] RBC Auto #/vol (Bld) 2.74 10*6/uL Low 4.20-5.40 [facility] WBC Auto #/vol (Bld) 6.5 10*3/uL Normal 4.8-10.8 [facility] Rejection Notificationon Rejected Test FOB Normal [facility] Rejected Test FOB Normal [facility] AFB Culture with Stainon Preliminary SEE NOTE Normal [facility] Comment on above: Order Comment: Bronc h wash RULBronch Wash RUL Result Comment: Spec imen received and in progress.Positive culture results are called as soon as detected.Final report to follow in seven to eight weeksPerformed by [employer],[address] [place] [address],[place] [address] zpe.[employer], Artur Agustin MD - Lab. Director Preliminary SEE NOTE Normal [facility] Comment on above: Order Comment: CALL Murdock 1W tel. [phone], called hgb to ramila june rn on 1w by scbHematology results called to and read back by ramila june on 1w, 12/27/201706:44, by BONSA Result Comment: Spec ashley received and in progress.Positive culture results are called as soon as detected.Final report to follow in seven to eight weeksPerformed by [facility] [employer] [facility],[address] [place] [address], [facility] [place] [address] ono.[employer], Artur Agustin MD - Lab. Director CBC With Platelet and Differ entialon 01-01-2018 Basophils Auto #/vol (Bld) 0.0 10*3/uL Normal 0.0-0.2 [facility] Comment on above: Order Comment: CALL [facility] 1 tel. [phone], called hgb to ramila june rn on 1w by scbHematology results called to and read back by ramila june on 1w, 12/27/201706:44, by BONSA Basophils/100 WBC Auto (Bld) 0.8 % Normal [facility] Comment on above: Order Comment: CALL [facility] 1W tel. [phone], called hgb to ramila june rn on 1w by scbHematology results called to and read back by ramila june on 1w, 12/27/201706:44, by BONSA Eosinophils Auto #/vol (Bld) 0.1 10*3/uL Normal 0.0-0.7 [facility] Comment on above: Order Comment: CALL [facility] 1W tel. [phone], called hgb to ramila june rn on 1w by scbHematology results called to and read back by ramila june on 1w, 12/27/201706:44, by BONSA Eosinophils/100 WBC Auto (Bld) 1.8 % Normal [facility] Comment on above: Order Comment: CALL [facility] 1W tel. [phone], called hgb to ramila oseguera rn on 1w by scbHematology results called to and read back by ramila june on 1w, 12/27/201706:44, by BONSA Erythrocyte distribution width Auto Ratio (RBC) 18.6 % Critically high 11.5-14.5 [facility] Comment on above: Order Comment: CALL [facility] tel. [phone], called hgb to ramila oseguera rn on 1w by scbHematology results called to and read back by ramila oseguera on 1w, 12/27/201706:44, by BONSA Hematocrit Auto Volume Fraction (Bld) 20.1 % Critically low 37.0-47.0 [facility] Comment on above: Order Comment: CALL [facility] tel. [phone], called hgb to ramila oseguera rn on 1w by scbHematology results called to and read back by ramila oseguera on 1w, :44, by BON Hemoglobin mass conc (Bld) 6.7 g/dL Critically low 12.0-16.0 [facility] Comment on above: Order Comment: CALL [address] tel. [phone], called hgb to ramila oseguera rn on 1w by scbHematology results called to and read back by ramila oseguera on 1w, 12/27/201706:44, by BON Result Comment: veri fied by repeat Lymphocytes Auto #/vol (Bld) 0.9 10*3/uL Low 1.0-4.8 [facility] Comment on above: Order Comment: CALL [address] tel. [phone], called hgb to ramila oseguera rn on 1w by scbHematology results called to and read back by ramila oseguera on 1w, 12/27/201706:44, by RAYSHAWN Lymphocytes/100 WBC Auto (Bld) 18.3 % Normal [facility] Comment on above: Order Comment: CALL [facility] tel. [phone], called hgb to ramila oseguera rn on 1w by scbHematology results called to and read back by ramila oseguera on 1w, 12/27/201706:44, by BONSA MCH Auto Entitic mass (RBC) 26.5 pg Low 27.0-31.3 [facility] Comment on above: Order Comment: CALL [facility] tel. [phone], called hgb to ramila oseguera rn on 1w by scbHematology results called to and read back by ramila june on 1w, :44, by BONSA MCHC Auto mass conc (RBC) 33.1 % Normal 33.0-37.0 [facility] Comment on above: Order Comment: CALL [address] tel. [phone], called hgb to ramila oseguera rn on 1w by scbHematology results called to and read back by ramila june on 1w, :44, by BONSA MCV Auto Entitic volume (RBC) 80.0 fL Low 82.0-100.0 [facility] Comment on above: Order Comment: CALL [facility] tel. [phone], called hgb to ramila oseguera rn on 1w by scbHematology results called to and read back by ramila june on 1w, :44, by BONSA Monocytes Auto #/vol (Bld) 0.3 10*3/uL Normal 0.2-0.8 [facility] Comment on above: Order Comment: CALL [address] tel. [phone], called hgb to ramila oseguera rn on 1w by scbHematology results called to and read back by ramila june on 1w, :44, by BONSA Monocytes/100 WBC Auto (Bld) 5.4 % Normal [facility] Comment on above: Order Comment: CALL [address] tel. [phone], called hgb to ramila oseguera rn on 1w by scbHematology results called to and read back by ramila june on 1w, :44, by BONSA Neutrophils Auto #/vol (Bld) 3.8 10*3/uL Normal 1.4-6.5 [facility] Comment on above: Order Comment: CALL [facility] tel. [phone], called hgb to ramila oseguera rn on 1w by scbHematology results called to and read back by ramila june on 1w, :44, by BONSA Neutrophils/100 WBC Auto (Bld) 73.7 % Normal [facility] Comment on above: Order Comment: CALL [facility] tel. [phone], called hgb to ramila oseguera rn on 1w by scbHematology results called to and read back by ramila june on 1w, 12/27/201706:44, by BONSA Platelets Auto #/vol (Bld) 174 10*3/uL Normal 130-400 [facility] Comment on above: Order Comment: CALL [facility] tel. [phone], called hgb to ramila oseguera rn on 1w by scbHematology results called to and read back by ramila june on 1w, 12/27/201706:44, by BONSA RBC Auto #/vol (Bld) 2.51 10*6/uL Low 4.20-5.40 [facility] Comment on above: Order Comment: CALL [facility] tel. [phone], called hgb to ramila oseguera rn on 1w by scbHematology results called to and read back by ramila june on 1w, 12/27/201706:44, by BONSA WBC Auto #/vol (Bld) 5.1 10*3/uL Normal 4.8-10.8 [facility] Comment on above: Order Comment: CALL [facility] tel. [phone], called hgb to ramila oseguera rn on 1w by scbHematology results called to and read back by ramila june on 1w, 12/27/201706:44, by RAYSHAWN [facility] Bacterial susceptibility panel by Minimum inhibitory concentration (ISRA) ORDERED BY: LESLIE PENALOZA: Blood COLLECTED: 12/31/17 00:40ANTIBIOTICS AT RADHA.: RECEIVED : 12/31/17 01:26CALL [facility] LC4W tel. [phone],Blood culture results called to and read back by Henri Christine, 01/01/2018 13:30, by Heavenly Geiger 2 FINAL 01/03/18 07:41 1 out of 2 blood cultures POSITIVE for Serratia marcescens S. marces ANTIBIOTICS ISRA Interp A moxicillin/Clavulanate >=32 R Cefepime <=1 S Ceftriaxone <=1 S Ciprofloxacin <=0.25 S Gentamicin <=1 S Trimethoprim/Sulfamethoxaz ole <=20 S S=SUSCEPTIBLE I=INTERMEDIATE R=RESISTANT Normal [facility] CBC With Platelet and Differ entialon 12-31-2017 Basophils Auto #/vol (Bld) 0.1 10*3/uL Normal 0.0-0.2 [facility] Comment on above: Order Comment: CALL [facility] LC1W tel. [phone], called hgb to ramila oseguera [facility] called to and read back by ramila oseguera on 1w, 12/27/201706:44, by RAYSHAWN Basophils/100 WBC Auto (Bld) 0.7 % Normal [facility] Comment on above: Order Comment: CALL [facility] LC1W tel. [phone], called hgb to ramila oseguera rn on 1w by scbHematology results called to and read back by ramila oseguera on 1w, :44, by BON Eosinophils Auto #/vol (Bld) 0.0 10*3/uL Normal 0.0-0.7 [facility] Comment on above: Order Comment: CALL [address] tel. [phone], called hgb to ramila june rn on 1w by scbHematology results called to and read back by ramila june on 1w, :44, by RAYSHAWN Eosinophils/100 WBC Auto (Bld) 0.4 % Normal [facility] Comment on above: Order Comment: CALL [address] tel. [phone], called hgb to ramila june rn on 1w by scbHematology results called to and read back by ramila oseguera on 1w, :44, by RAYSHAWN Erythrocyte distribution width Auto Ratio (RBC) 19.0 % Critically high 11.5-14.5 [facility] Comment on above: Order Comment: CALL [address] tel. [phone], called hgb to ramila june rn on 1w by scbHematology results called to and read back by ramila june on 1w, :44, by RAYSHAWN Hematocrit Auto Volume Fraction (Bld) 19.7 % Critically low 37.0-47.0 [facility] Comment on above: Order Comment: CALL [address] tel. [phone], called hgb to ramila june rn on 1w by scbHematology results called to and read back by ramila oseguera on 1w, :44, by RAYSHAWN Hemoglobin mass conc (Bld) 6.6 g/dL Critically low 12.0-16.0 [facility] Comment on above: Order Comment: CALL [facility] tel. [phone], called hgb to ramila june rn on 1w by scbHematology results called to and read back by ramila june on 1w, :44, by BONSA Result Comment: veri fied by repeat Lymphocytes Auto #/vol (Bld) 0.8 10*3/uL Low 1.0-4.8 [facility] Comment on above: Order Comment: CALL [facility] tel. [phone], called hgb to ramila oseguera rn on 1w by scbHematology results called to and read back by ramila june on 1w, :44, by BONSA Lymphocytes/100 WBC Auto (Bld) 9.0 % Normal [facility] Comment on above: Order Comment: CALL [facility] tel. [phone], called hgb to ramila oseguera rn on 1w by scbHematology results called to and read back by ramila june on 1w, :44, by BONSA MCH Auto Entitic mass (RBC) 26.7 pg Low 27.0-31.3 [facility] Comment on above: Order Comment: CALL [address] tel. [phone], called hgb to ramila oseguera rn on 1w by scbHematology results called to and read back by ramila june on 1w, :44, by BONSA MCHC Auto mass conc (RBC) 33.3 % Normal 33.0-37.0 [facility] Comment on above: Order Comment: CALL [facility] tel. [phone], called hgb to ramila oseguera rn on 1w by scbHematology results called to and read back by ramila june on 1w, :44, by BONSA MCV Auto Entitic volume (RBC) 80.1 fL Low 82.0-100.0 [facility] Comment on above: Order Comment: CALL [facility] tel. [phone], called hgb to ramila oseguera rn on 1w by scbHematology results called to and read back by ramila june on 1w, :44, by BONSA Monocytes Auto #/vol (Bld) 0.5 10*3/uL Normal 0.2-0.8 [facility] Comment on above: Order Comment: CALL [facility] tel. [phone], called hgb to ramila oseguera rn on 1w by scbHematology results called to and read back by ramila june on 1w, :44, by BONSA Monocytes/100 WBC Auto (Bld) 5.4 % Normal [facility] Comment on above: Order Comment: CALL [facility] 1 tel. [phone], called hgb to ramila oseguera rn on 1w by scbHematology results called to and read back by ramila june on 1w, 12/27/201706:44, by BONSA Neutrophils Auto #/vol (Bld) 7.1 10*3/uL Critically high 1.4-6.5 [facility] Comment on above: Order Comment: CALL [facility] tel. [phone], called hgb to ramila oseguera rn on 1w by scbHematology results called to and read back by ramila june on 1w, :44, by BONSA Neutrophils/100 WBC Auto (Bld) 84.5 % Normal [facility] Comment on above: Order Comment: CALL [facility] tel. [phone], called hgb to ramila oseguera rn on 1w by scbHematology results called to and read back by ramila june on 1w, 12/27/201706:44, by BONSA Platelets Auto #/vol (Bld) 195 10*3/uL Normal 130-400 [facility] Comment on above: Order Comment: CALL [facility] 1 tel. [phone], called hgb to ramila oseguera rn on 1w by scbHematology results called to and read back by ramila june on 1w, :44, by BONSA RBC Auto #/vol (Bld) 2.46 10*6/uL Low 4.20-5.40 [facility] Comment on above: Order Comment: CALL [facility] 1W tel. [phone], called hgb to ramila oseguera rn on 1w by scbHematology results called to and read back by ramila june on 1w, :44, by BONSA WBC Auto #/vol (Bld) 8.4 10*3/uL Normal 4.8-10.8 [facility] Comment on above: Order Comment: CALL [facility] 1W tel. [phone], called hgb to ramila oseguera rn on 1w by scbHematology results called to and read back by ramila oseguera on 1w, 12/27/201706:44, by RAYSHAWN Culture, Blood 2on 8 Culture, Blood 2 OR DERED BY: LESLIE PENALOZA: Blood COLLECTED: 12/31/17 00:40ANTIBIOTICS AT RADHA.: RECEIVED : 12/31/17 01:26CALL [facility] LC4W tel. [phone],Blood culture results called to and read back by Henri Christine, 01/01/2018 13:30, by MICRECulture, Blood 2 INTERIM 01/02/18 08:16 Gram stain aerobic bottle Gram negative rods 1 out of 2 blood cultures Further results to follow POSITIVE for Gram negative arminda ID and sensitivity to follow Normal [facility] IR FLUORO GUIDED CVA DEVICE PLACEMENTon 12-31-2017 [...] sheath was placed over the guidewire. A 4-Urdu 44 cm single lumen PICC was advanced [...] by:FRANCO Santamariaigned by:Gordon Hinton MD01/10/18inal result Normal [facility] IR PICC WO SQ PORT/PUMP > 5 [...] sheath was placed over the guidewire. A 4-Urdu 44 cm single lumen PICC was advanced [...] by:FRANCO Santamariaigned by:Gordon Hinton MD01/10/18inal result Normal [facility] IR ULTRASOUND GUIDANCE VASCU LAR ACCESSon 12-31-2017 [...] sheath was placed over the guidewire. A 4-Urdu 44 cm single lumen PICC was advanced [...] by:FRANCO Santamariaigned by:Gordon Hinton MD01/10/18inal result Normal [facility] Basic Metabolic Panel Reflex Mgon 12-30-2017 Calcium mass conc 8.4 mg/dL Low 8.6-10.2 [facility] Chloride molar conc 107 mmol/L Normal 98-107 [facility] CO2 molar conc 24 mmol/L Normal 22-29 [facility] Creatinine mass conc 0.73 mg/dL Normal 0.50-0.90 [facility] GFR/1.73 sq M predicted among blacks MDRD vol rate/area (S/P/Bld) mL/min/{1.73_m2} Normal >60 [facility] Comment on above: Result Comment: >60 mL/min/1.73m2 EGFR, calc. for ages 18 and older using theMDRD formula (not corrected for weight), is valid for stablerenal function. GFR/1.73 sq M.predicted MDRD vol rate/area mL/min/{1.73_m2} Normal >60 [facility] Comment on above: Result Comment: >60 mL/min/1.73m2 EGFR, calc. for ages 18 and older using theMDRD formula (not corrected for weight), is valid for stablerenal function. Glucose mass conc 82 mg/dL Normal 74-109 [facility] Potassium reflex Mg 4.8 mEq/L Normal 3.5-5.1 [facility] Sodium molar conc 140 mmol/L Normal 132-144 [facility] Urea nitrogen mass conc 8 mg/dL Normal 6-20 [facility] Anion gap 3 molar conc 9 mmol/L Normal 7-13 [facility] Body Fluid Cell Counton 12-16 Atypical Lymphs 3 % Normal [facility] Eosinophils/100 WBC Auto (Bld) 1 % Normal [facility] Lymphocytes/100 WBC Auto (Bld) 8 % Normal [facility] Mesothelials 50 % Normal [facility] Monocytes/100 WBC Auto (Bld) 20 % Normal [facility] Neutrophils/100 WBC Auto (Bld) 18 % Normal [facility] CBC With Platelet and Differ entialon 12-30-2017 Basophils Auto #/vol (Bld) 0.0 10*3/uL Normal 0.0-0.2 [facility] Comment on above: Order Comment: CALL [facility] LC4[facility] tel. [phone],h and h results called to and read back by es perdomo on 4w / scb,12/30/2017 09:51, by RAYSHAWN Basophils/100 WBC Auto (Bld) 1.0 % Normal [facility] Comment on above: Order Comment: CALL [facility] LC4[facility] tel. [phone],h and h results called to and read back by es perdomo on 4w / scb,12/30/2017 09:51, by BON Eosinophils Auto #/vol (Bld) 0.1 10*3/uL Normal 0.0-0.7 [facility] Comment on above: Order Comment: CALL [facility] LC4[facility] tel. [phone],h and h results called to and read back by es perdomo on 4w / scb,12/30/2017 09:51, by BONSA Eosinophils/100 WBC Auto (Bld) 1.8 % Normal [facility] Comment on above: Order Comment: CALL [facility] LC4[facility] tel. [phone],h and h results called to and read back by es perdomo on 4w / scb,12/30/2017 09:51, by BONSA Erythrocyte distribution width Auto Ratio (RBC) 18.8 % Critically high 11.5-14.5 [facility] Comment on above: Order Comment: CALL [facility] LC4[facility] tel. [phone],h and h results called to and read back by es perdomo on 4w / scb,12/30/2017 09:51, by BONSA Hematocrit Auto Volume Fraction (Bld) 20.8 % Critically low 37.0-47.0 [facility] Comment on above: Order Comment: CALL [facility] LC4[facility] tel. [phone],h and h results called to and read back by es perdomo on 4w / scb,12/30/2017 09:51, by BONSA Hemoglobin mass conc (Bld) 7.0 g/dL Critically low 12.0-16.0 [facility] Comment on above: Order Comment: CALL [facility] 4W tel. [phone],h and h results called to and read back by es perdomo on 4w / scb,12/30/2017 09:51, by BONSA Lymphocytes Auto #/vol (Bld) 1.0 10*3/uL Normal 1.0-4.8 [facility] Comment on above: Order Comment: CALL [facility] LC4[facility] tel. [phone],h and h results called to and read back by es perdomo on 4w / scb,12/30/2017 09:51, by BONSA Lymphocytes/100 WBC Auto (Bld) 20.2 % Normal [facility] Comment on above: Order Comment: CALL [facility] LC4[facility] tel. [phone],h and h results called to and read back by es perdomo on 4w / scb,12/30/2017 09:51, by BONSA MCH Auto Entitic mass (RBC) 26.8 pg Low 27.0-31.3 [facility] Comment on above: Order Comment: CALL [facility] LC4[facility] tel. [phone],h and h results called to and read back by es perdomo on 4w / scb,12/30/2017 09:51, by BONSA MCHC Auto mass conc (RBC) 33.9 % Normal 33.0-37.0 [facility] Comment on above: Order Comment: CALL [facility] LC4[facility] tel. [phone],h and h results called to and read back by es perdomo on 4w / scb,12/30/2017 09:51, by BONSA MCV Auto Entitic volume (RBC) 79.1 fL Low 82.0-100.0 [facility] Comment on above: Order Comment: CALL [facility] LC4[facility] tel. [phone],h and h results called to and read back by es perdomo on 4w / scb,12/30/2017 09:51, by BONSA Monocytes Auto #/vol (Bld) 0.2 10*3/uL Normal 0.2-0.8 [facility] Comment on above: Order Comment: CALL [facility] LC4[facility] tel. [phone],h and h results called to and read back by es perdomo on 4w / scb,12/30/2017 09:51, by BONSA Monocytes/100 WBC Auto (Bld) 4.8 % Normal [facility] Comment on above: Order Comment: CALL [facility] LC4[facility] tel. [phone],h and h results called to and read back by es perdomo on 4w / scb,12/30/2017 09:51, by BONSA Neutrophils Auto #/vol (Bld) 3.7 10*3/uL Normal 1.4-6.5 [facility] Comment on above: Order Comment: CALL [facility] LC4[facility] tel. [phone],h and h results called to and read back by es perdomo on 4w / scb,12/30/2017 09:51, by BONSA Neutrophils/100 WBC Auto (Bld) 72.2 % Normal [facility] Comment on above: Order Comment: CALL [facility] LC4[facility] tel. [phone],h and h results called to and read back by es perdomo on 4w / scb,12/30/2017 09:51, by BONSA Platelets Auto #/vol (Bld) 231 10*3/uL Normal 130-400 [facility] Comment on above: Order Comment: CALL [facility] LC4[facility] tel. [phone],h and h results called to and read back by es perdomo on 4w / scb,12/30/2017 09:51, by [facility] RBC Auto #/vol (Bld) 2.62 10*6/uL Low 4.20-5.40 [facility] Comment on above: Order Comment: CALL [facility] LC4[facility] tel. [phone],h and h results called to and read back by es leanne on 4w / scb,12/30/2017 09:51, by RAYSHAWN WBC Auto #/vol (Bld) 5.1 10*3/uL Normal 4.8-10.8 [facility] Comment on above: Order Comment: CALL [facility] LC4[facility] tel. [phone],h and h results called to and read back by es perdomo on 4w / scb,12/30/2017 09:51, by [facility] CT SINUS WO CONTRASTon 12-30 CT SINUS [...] by:FRANCO Mcmanusigned by:Huan Funes MD12/30/17inal result Normal [facility] [place] Miscellaneous test 1on 12-29-2017 Miscellaneous Test 1 SEE NOTE Normal [facility] Comment on above: Order Comment: Colle ction has been rescheduled by VIVIEN at 12/26/2017 14:59. Reason:patient refusing until she gets pain meds Result Comment: Test name Result Flag Units RefIntvl HIV-1,2 Combo Antigen/Antibody Negative NegativeThe specimen was non-reactive for HIV-1 and HIV-2 antibodies, and h22calnanl. Based on this non-reactive screen result, further reflexivetestingwas not indicated and was, therefore, not performedINTERPRETIVE INFORMATION: HIV-1,2 Combo Ag/Ab EIA w/ReflexThis assay should not be used for blood donor screening, associatedre-entryprotocols, or for screening Human Cell, Tissues and Cellular andTissue-BasedProducts (HCT/P).Performed by [facility] [facility] [employer],[address] [place] [id number] afk.[employer], Artur Agustin MD - Lab. Director Protein mass conc [id number] g/dL Normal [facility] Comment on above: Order Comment: Terri gonzales has been rescheduled by VIVIEN at 12/26/2017 14:59. Reason:patient refusing until she gets pain meds [facility] Bacterial susceptibility panel by Minimum inhibitory concentration (ISRA) ORDERED BY: YOLANDA HERNÁNDEZ: Bronchial Washing Right Upper Lobe COLLECTED: 12/29/17 15:09ANTIBIOTICS AT RADHA.: RECEIVED : 12/29/17 15:37 Supplemental ReportCALL [facility] LC4W tel. [phone],MRSA results called to and read back by [...] Vancomycin <=0.5 S S=SUSCEPTIBLE I=INTERMEDIATE R=RESISTANT Normal [facility] Bacterial susceptibility panel by Minimum inhibitory concentration (ISRA) ORDERED BY: YOLANDA HERNÁNDEZ: Bronchial Washing Body Fluid COLLECTED: 12/29/17 14:43ANTIBIOTICS AT RADHA.: RECEIVED : 12/29/17 15:42CALL [facility] LC4[facility] tel. [phone],MRSAresults called to and read back by Nanci, [...] Trimethoprim/Sulfamethoxaz ole <=20 S S=SUSCEPTIBLE I=INTERMEDIATE R=RESISTANT [facility] Body Fluid Cell Counton 11- Appearance Nom (U) Hazy [facility] Clot Check see below [facility] Comment on above: Result Comment: No C lots Seen Color Nom (U) Colorless Normal [facility] Fluid Source Pleural Normal [facility] Total Nucleated Cells 341 /cumm Normal [facility] Total Red Blood Cells 2888 /cumm Normal [facility] Total Cells Counted for Diff 100 Normal [facility] CBC With Platelet No Aden chapman 12-29-2017 Erythrocyte distribution width Auto Ratio (RBC) 18.5 % Critically high 11.5-14.5 [facility] Comment on above: Order Comment: Terri gonzales has been rescheduled by SAUDE at 12/26/2017 14:59. Reason:patient refusing until she gets pain meds Hematocrit Auto Volume Fraction (Bld) 18.5 % Critically low 37.0-47.0 [facility] Comment on above: Order Comment: Terri gonzales has been rescheduled by SAUDE at 12/26/2017 14:59. Reason:patient refusing until she gets pain meds Hemoglobin mass conc (Bld) 6.2 g/dL Critically low 12.0-16.0 [facility] Comment on above: Order Comment: Terri gonzales has been rescheduled by SAUDE at 12/26/2017 14:59. Reason:patient refusing until she gets pain meds MCH Auto Entitic mass (RBC) 26.6 pg Low 27.0-31.3 [facility] Comment on above: Order Comment: Terri gonzales has been rescheduled by SAUDE at 12/26/2017 14:59. Reason:patient refusing until she gets pain meds MCHC Auto mass conc (RBC) 33.6 % Normal 33.0-37.0 [facility] Comment on above: Order Comment: Terri gonzales has been rescheduled by SAUDE at 12/26/2017 14:59. Reason:patient refusing until she gets pain meds MCV Auto Entitic volume (RBC) 79.0 fL Low 82.0-100.0 [facility] Comment on above: Order Comment: Terri gonzales has been rescheduled by SAUDE at 12/26/2017 14:59. Reason:patient refusing until she gets pain meds Platelets Auto #/vol (Bld) 173 10*3/uL Normal 130-400 [facility] Comment on above: Order Comment: Terri gonzales has been rescheduled by SAUDE at 12/26/2017 14:59. Reason:patient refusing until she gets pain meds RBC Auto #/vol (Bld) 2.34 10*6/uL Low 4.20-5.40 [facility] Comment on above: Order Comment: Terri gonzales has been rescheduled by SAUDE at 12/26/2017 14:59. Reason:patient refusing until she gets pain meds WBC Auto #/vol (Bld) 3.5 10*3/uL Low 4.8-10.8 [facility] Comment on above: Order Comment: Terri gonzales has been rescheduled by SAUDE at 12/26/2017 14:59. Reason:patient refusing until she gets pain meds CONSULTATIONon 12-29-[address] [place] [id number] CONSULTATIONPATIENT NAME: RYAN HALL : 1985MED REC NO: [id number] ROOM:ACCOUNT NO: [id number] ADMIT DATE: 12/25/2017PROVIDER: [facility] Herrera [facility] DATE: 12/29/2017Consultation from Dr. Dominga Hernández.REASON FOR [...] this consult.AYANA HERRERA, MDD: 12/29/2017 18:06:42 [id number]#: [id number] Doc#: [id number]: MD Dominga Rai MD [facility] Culture, Respiratoryon 12-29 Culture, Respiratory ORDERED BY: YOLANDA HERNÁNDEZ: Bronchial Washing Left Lower Lobe COLLECTED: 12/29/17 15:11ANTIBIOTICS AT RADHA.: RECEIVED : 12/29/17 15:41CALL [facility] LC4W tel. [phone],MRSA results called to and read back by Nanci, 01/01/2018 12:23, by KEVGram Stain Direct FINAL 12/30/17 10:54 Moderate WBC's, No organisms seenCulture, Respiratory FINAL 01/01/18 12:24 Light growth Staph aureus MRSA CONTACT PRECAUTIONS INDICATED PBP2= POSITIVE Previous value was 01 Staph aureus MSSA, verified by KEV at 13:14 on 12/31/17 Normal [facility] Culture, Respiratory ORDERED BY: YOLANDA HERNÁNDEZ: Bronchial [...] Gram negative arminda ID to follow Normal [facility] Culture, Respiratory ORDERED BY: YOLANDA HERNÁNDEZ: Bronchial Washing Body Fluid COLLECTED: 12/29/17 14:43ANTIBIOTICS AT RADHA.: RECEIVED : 12/29/17 15:42Gram Stain Direct FINAL 12/30/17 10:59 Few WBC's Few epithelial cells Few Mixed Respiratory FloraCulture, Respiratory INTERIM 12/31/17 13:15 Light growth Gram negative arminda ID and sensitivity to follow Rare growth Serratia marcescens Refer to previous sensitivity Heavy growth Staph aureus MSSA Normal [facility] Cytology Medical Specimenon 12-29-2017 Cytology Medical Specimen Invalid Interpretation Code [facility] Comment on above: Result Comment: [facility] [address] [place] [address] FINAL CYTOLOGY REPORTPatient Name: RYAN HALL Accession No: [id number] Age Sex: 1985 32 Y/ F Location: [id number] No: [id number] Collected: 12/29/2017Med Rec No: [id number] Received: 12/30/2017Attend Phys: NEENA DUPONT Completed 01/03/2018Perform [...] ml fixed1 monolayer1 cell blockhx Not givenCPT: 25666 X2 82666 X2 Screened by: Irasema CAZARES M.D. 01/03/2018 [...] by:FRANCO Mittaligned by:Keith Durham MD12/29/inal result Normal [facility] HCV by Quant NAATon 12-30-19 18 HCV Qnt by NAAT IU/mL Not Detected Normal [facility] Comment on above: Order Comment: Terri gonzales has been rescheduled by SAUDE at 12/26/2017 14:59. Reason:patient refusing until she gets pain meds HCV Qnt by NAAT log IU/mL Not Detected Normal [facility] Comment on above: Order Comment: Terri gonzales has been rescheduled by SAUDE at 12/26/2017 14:59. Reason:patient refusing until she gets pain meds Prothrombin Timeon 8 INR Coag RelTime (PPP) 1.1 {INR} Normal [facility] Comment on above: Result Comment: Dimitrios mmended [...] Coag time (PPP) 11.4 s Normal 9.6-12.3 [facility] Quantiferon-TB Gold Plus, 1- Tubeon 12-29-2017 Quantiferon Mitogen minus NIL 0.52 IU/mL Normal [facility] Comment on above: Order Comment: Terri gonzales has been rescheduled by SAUDE at 12/26/2017 14:59. Reason:patient refusing until she gets pain meds Quantiferon NIL 0.05 IU/mL Normal [facility] Comment on above: Order Comment: Terri gonzales has been rescheduled by SAUDE at 12/26/2017 14:59. Reason:patient refusing until she gets pain meds Result Comment: Perf ormed by [employer],[address] [facility] [place] [address] czj.[employer], Artur Agustin MD - Lab. Director Quantiferon PlusTB1 minus NIL 0.00 IU/mL Normal 0.00-0.34 [facility] Comment on above: Order Comment: Terri gonzales has been rescheduled by SAUDE at 12/26/2017 14:59. Reason:patient refusing until she gets pain meds Quantiferon PlusTB2 minus NIL 0.00 IU/mL Normal 0.00-0.34 [facility] Comment on above: Order Comment: Terri gonzales has been rescheduled by SAUDE at 12/26/2017 14:59. Reason:patient refusing until she gets pain meds Quantiferon TB Gold Plus Negative Normal Negative [facility] Comment on above: Order Comment: Terri gonzales [...] CD4+ lymphocyte reactivity, specifically stimulated by the [id number]. The TB2-NIL tube detects both CD4+ and CD8+ lymphocytereactivity,stimulated by TB2 antigens. An overall Negative result does notcompletelyrule out TB infection.A false-positive result in the absence of other clinical evidence of TBinfection is not uncommon. Refer to: Updated Guidelines for UsingInterferonGamma Release Assays to Detect Mycobacterium tuberculosis Infection ---[place], 2010(http://www.cdc.gov/mmwr/preview/mmwrhtml/qq4822t0.htm),for more information concerning test performance in low-prevalencepopulations and use in occupational screening. CBC With Platelet No Aden chapman 12-28-2017 Erythrocyte distribution width Auto Ratio (RBC) 18.9 % Critically high 11.5-14.5 [facility] Comment on above: Order Comment: Terri gonzales has been rescheduled by SAUDE at 12/26/2017 14:59. Reason:patient refusing until she gets pain meds Hematocrit Auto Volume Fraction (Bld) 21.0 % Critically low 37.0-47.0 [facility] Comment on above: Order Comment: Terri gonzales has been rescheduled by SAUDE at 12/26/2017 14:59. Reason:patient refusing until she gets pain meds Hemoglobin mass conc (Bld) 6.8 g/dL Critically low 12.0-16.0 [facility] Comment on above: Order Comment: Terri gonzales has been rescheduled by SAUDE at 12/26/2017 14:59. Reason:patient refusing until she gets pain meds Result Comment: call ed h and h to laivnia chacon on 1w MCH Auto Entitic mass (RBC) 26.0 pg Low 27.0-31.3 [facility] Comment on above: Order Comment: Terri gonzales has been rescheduled by SAUDE at 12/26/2017 14:59. Reason:patient refusing until she gets pain meds MCHC Auto mass conc (RBC) 32.6 % Low 33.0-37.0 [facility] Comment on above: Order Comment: Terri gonzales has been rescheduled by SAUDE at 12/26/2017 14:59. Reason:patient refusing until she gets pain meds MCV Auto Entitic volume (RBC) 79.9 fL Low 82.0-100.0 [facility] Comment on above: Order Comment: Terri gonzales has been rescheduled by SAUDE at 12/26/2017 14:59. Reason:patient refusing until she gets pain meds Platelets Auto #/vol (Bld) 147 10*3/uL Normal 130-400 [facility] Comment on above: Order Comment: Terri gonzales has been rescheduled by SAUDE at 12/26/2017 14:59. Reason:patient refusing until she gets pain meds RBC Auto #/vol (Bld) 2.63 10*6/uL Low 4.20-5.40 [facility] Comment on above: Order Comment: Terri gonzales has been rescheduled by SAUDE at 12/26/2017 14:59. Reason:patient refusing until she gets pain meds WBC Auto #/vol (Bld) 4.2 10*3/uL Low 4.8-10.8 [facility] Comment on above: Order Comment: Terri gonzales has been rescheduled by SAUDE at 12/26/2017 14:59. Reason:patient refusing until she gets pain meds Hepatitis B Core Abs, Totalo n 12-28-2017 Hepatitis B Core Abs, Total Positive Abnormal Negative [facility] Comment on above: Order Comment: Terri gonzales [...] Tissues and Cellular andTissue-Based Products (HCT/P).Performed by [employer],[address] [facility],[place] [address] nxh.[employer], Artur Agustin MD - Lab. Director Transferrinon 12-28-2017 Transferrin mass conc 135 mg/dL Low 200-400 [facility] Comment on above: Order Comment: Terri gonzales has been rescheduled by SAUDE at 12/26/2017 14:59. Reason:patient refusing until she gets pain meds Result Comment: Perf ormed by [employer],[address] [employer], [facility] [place] [address] zwl.[employer], Artur Agustin MD - Lab. Director XR [...] Montoya, DOSigned by:Chandrakant Montoya, DO12/28/18Final result Normal [facility] CBC With Platelet and Differ entialon 12-27-2017 Anisocytosis Auto Ql (Bld) 2+ Normal [facility] Comment on above: Order Comment: CALL [facility] 1W tel. [phone], called hgb to ramila oseguera rn on 1w by scbHematology results called to and read back by ramila oseguera on 1w, 12/27/201706:44, by BON Hypochromia 1+ Normal [facility] Comment on above: Order Comment: CALL [facility] 1W tel. [phone], called hgb to ramila oseguera rn on 1w by scbHematology results called to and read back by ramila oseguera on 1w, 12/27/201706:44, by BONSA Lymphocytes Auto #/vol (Bld) 0.8 10*3/uL Low 1.0-4.8 [facility] Comment on above: Order Comment: CALL [facility] LC1W tel. [phone], called hgb to ramila oseguera rn on 1w by scbHematology results called to and read back by ramila oseguera on 1w, 12/27/201706:44, by BONSA Lymphocytes/100 WBC Auto (Bld) 22.0 % Normal [facility] Comment on above: Order Comment: CALL [facility] LC1W tel. [phone], called hgb to ramila oseguera rn on 1w by scbHematology results called to and read back by ramila oseguera on 1w, 12/27/201706:44, by BONSA Microcytic 2+ Normal [facility] Comment on above: Order Comment: CALL [facility] LC1W tel. [phone], called hgb to ramila oseguera rn on 1w by scbHematology results called to and read back by ramila oseguera on 1w, :44, by BONSA Monocytes Auto #/vol (Bld) 0.1 10*3/uL Low 0.2-0.8 [facility] Comment on above: Order Comment: CALL [facility] LC1W tel. [phone], called hgb to ramila june rn on 1w by scbHematology results called to and read back by ramila june on 1w, :44, by BONSA Monocytes/100 WBC Auto (Bld) 3.8 % Normal [facility] Comment on above: Order Comment: CALL [facility] LC1W tel. [phone], called hgb to ramila june rn on 1w by scbHematology results called to and read back by ramila june on 1w, :44, by BONSA Neutrophils Auto #/vol (Bld) 2.7 10*3/uL Normal 1.4-6.5 [facility] Comment on above: Order Comment: CALL [facility] 1W tel. [phone], called hgb to ramila june rn on 1w by scbHematology results called to and read back by ramila june on 1w, :44, by BONSA Neutrophils/100 WBC Auto (Bld) 74.0 % Normal [facility] Comment on above: Order Comment: CALL [facility] 1W tel. [phone], called hgb to ramila june rn on 1w by scbHematology results called to and read back by ramila june on 1w, :44, by BONSA Platelet Slide Review Decreased Normal [facility] Comment on above: Order Comment: CALL [facility] LC1W tel. [phone], called hgb to ramila june rn on 1w by scbHematology results called to and read back by ramila june on 1w, :44, by RAYSHAWN Poikilocytosis 1+ Normal [facility] Comment on above: Order Comment: CALL [facility] LC1W tel. [phone], called hgb to ramila june rn on 1w by scbHematology results called to and read back by ramila june on 1w, :44, by BONSA Basophils Auto #/vol (Bld) 0.0 10*3/uL Normal 0.0-0.2 [facility] Comment on above: Order Comment: CALL [address] tel. [phone], called hgb to ramlia june rn on 1w by scbHematology results called to and read back by ramila june on 1w, :44, by BONSA Basophils/100 WBC Auto (Bld) 1.0 % Normal [facility] Comment on above: Order Comment: CALL [address] tel. [phone], called hgb to ramila june rn on 1w by scbHematology results called to and read back by ramila june on 1w, :44, by BONSA Eosinophils Auto #/vol (Bld) 0.0 10*3/uL Normal 0.0-0.7 [facility] Comment on above: Order Comment: CALL [address] tel. [phone], called hgb to ramila june rn on 1w by scbHematology results called to and read back by ramila june on 1w, :44, by BONSA Eosinophils/100 WBC Auto (Bld) 1.1 % Normal [facility] Comment on above: Order Comment: CALL [address] tel. [phone], called hgb to ramila june rn on 1w by scbHematology results called to and read back by ramila june on 1w, :44, by BONSA Erythrocyte distribution width Auto Ratio (RBC) 18.8 % Critically high 11.5-14.5 [facility] Comment on above: Order Comment: CALL [address] tel. [phone], called hgb to ramila june rn on 1w by scbHematology results called to and read back by ramila june on 1w, :44, by BONSA Hematocrit Auto Volume Fraction (Bld) 21.1 % Low 37.0-47.0 [facility] Comment on above: Order Comment: CALL [address] tel. [phone], called hgb to ramila oseguera rn on 1w by scbHematology results called to and read back by ramila june on 1w, :44, by BONSA Hemoglobin mass conc (Bld) 6.9 g/dL Critically low 12.0-16.0 [facility] Comment on above: Order Comment: CALL [facility] tel. [phone], called hgb to ramila june rn on 1w by scbHematology results called to and read back by ramila june on 1w, :44, by BONSA Result Comment: call ed hgb to ramila june on 1w / scb MCH Auto Entitic mass (RBC) 26.5 pg Low 27.0-31.3 [facility] Comment on above: Order Comment: CALL [facility] tel. [phone], called hgb to ramila oseguera rn on 1w by scbHematology results called to and read back by ramila june on 1w, :44, by BON MCHC Auto mass conc (RBC) 32.8 % Low 33.0-37.0 [facility] Comment on above: Order Comment: CALL [facility] tel. [phone], called hgb to ramila oseguera rn on 1w by scbHematology results called to and read back by ramila oseguera on 1w, :44, by BONSA MCV Auto Entitic volume (RBC) 80.9 fL Low 82.0-100.0 [facility] Comment on above: Order Comment: CALL [facility] tel. [phone], called hgb to ramila oseguera rn on 1w by scbHematology results called to and read back by ramila june on 1w, :44, by BONSA Platelets Auto #/vol (Bld) 122 10*3/uL Low 130-400 [facility] Comment on above: Order Comment: CALL [facility] tel. [phone], called hgb to ramila oseguera rn on 1w by scbHematology results called to and read back by ramlia june on 1w, :44, by BONSA RBC Auto #/vol (Bld) 2.61 10*6/uL Low 4.20-5.40 [facility] Comment on above: Order Comment: CALL [facility] LC1W tel. [phone], called hgb to ramila oseguera rn on 1w by scbHematology results called to and read back by ramila oseguera on 1w, 12/27/201706:44, by RAYSHAWN WBC Auto #/vol (Bld) 3.6 10*3/uL Low 4.8-10.8 [facility] Comment on above: Order Comment: CALL [facility] LC1W tel. [phone], called hgb to ramila oseguera rn on 1w by scbHematology results called to and read back by ramila oseguera on 1w, 12/27/201706:44, by RAYSHAWN Comprehensive Metabolic Pane l reflex Mgon 12-27-2017 Albumin mass conc 2.4 g/dL Low 3.9-4.9 [facility] ALP enzyme act/vol 40 U/L Normal 40-130 [facility] ALT enzyme act/vol U/L Normal 0-33 [facility] Anion gap 3 molar conc 11 mmol/L Normal 7-13 [facility] AST enzyme act/vol 6 U/L Normal 0-35 [facility] Bilirubin mass conc mg/dL Normal 0.0-1.2 [facility] Calcium mass conc 7.7 mg/dL Low 8.6-10.2 [facility] Chloride molar conc 110 mmol/L Critically high 98-107 [facility] CO2 molar conc 20 mmol/L Low 22-29 [facility] Creatinine mass conc 0.64 mg/dL Normal 0.50-0.90 [facility] GFR/1.73 sq M predicted among blacks MDRD vol rate/area (S/P/Bld) mL/min/{1.73_m2} Normal >60 [facility] Comment on above: Result Comment: >60 mL/min/1.73m2 EGFR, calc. for ages 18 and older using theMDRD formula (not corrected for weight), is valid for stablerenal function. GFR/1.73 sq M.predicted MDRD vol rate/area mL/min/{1.73_m2} Normal >60 [facility] Comment on above: Result Comment: >60 mL/min/1.73m2 EGFR, calc. for ages 18 and older using theMDRD formula (not corrected for weight), is valid for stablerenal function. Globulin Calculated mass conc (S) 3.9 g/dL Critically high 2.3-3.5 [facility] Glucose mass conc 115 mg/dL Critically high 74-109 [facility] Potassium reflex Mg 3.8 mEq/L Normal 3.5-5.1 [facility] Protein mass conc 6.3 g/dL Low 6.4-8.1 [facility] Sodium molar conc 141 mmol/L Normal 132-144 [facility] Urea nitrogen mass conc 10 mg/dL Normal 6-20 [facility] Ferritinon 12-27-2017 Ferritin [Mass/volume] in Serum or Plasma 152.3 ng/mL Critically high 13.0-150.0 [facility] Iron Profileon 12-27-2017 % Saturation 8 % Low 11-46 [facility] Iron Binding Capacity 132 ug/dL Low 178-450 [facility] Iron mass conc 11 ug/dL Low 37-145 [facility] RBC LRon 12-27-2017 RBC Auto #/vol (Bld) PATIENT: ISABEL Jackson LOC: LC4W,W487,01BILL# : [id number] : 1985 SEX: FORDERED BY: KIAH CHAUDHARY ORDERED : 12/27/2017 07:06 COLLECTED: 12/27/2017 07:20ORDER : [id number] RECEIVED : 12/27/2017 07:27 -----TEST NAME RESULT UNITS RANGES ABN FL STRBC LR E0382 RBC LR W0 F = Normal [facility] Retic Automatedon 12-27-2017 Hematocrit Auto Volume Fraction (Bld) 21.1 % Low 37.0-47.0 [facility] Retic Abs 0.066 m/cumm Normal 0.022-0.11 [facility] Reticulocyte Count Automated 2.5 % Critically high 0.6-2.2 [facility] Type and Screen Capture 3 sc rn cellon 12-27-2017 Type and Screen Capture 3 scrn cell PATIENT: ISABEL Jackson LOC: LC1W,[id number]# : [id number] : 1985 SEX: FORDERED BY: KIAH CHAUDHARY ORDERED : 12/27/2017 07:06 COLLECTED: 12/27/2017 07:20ORDER : [id number] RECEIVED : 12/27/2017 07:27 -----TEST NAME RESULT UNITS RANGES ABN FL STABORH Capture A POS FAntibody 3 Cell Scrn Captu NEG F @12/27/17 10:58 by BEBETO: ANTIBODY SCREEN PERFORMED ON BACKUP CAPTURE. ------- Normal [facility] Bacterial susceptibility fox el by MICon 12-26-2017 [...] ole <=20 S S=SUSCEPTIBLE I=INTERMEDIATE R=RESISTANT Normal [facility] CT CHEST W CONTRASTon 2017 CT CHEST [...] tissue density, adenopathy.There is trace pericardial effusion.The [id number] the gallbladder surgically absent.IMPRESSION: FINDINGS DESCRIBED ABOVE. [...] by:FRANCO Santamariaigned by:Gordon Hinton MD12/26/17inal result Normal [facility] Culture, Blood 2on 8 Culture, Blood 2 OR DERED BY: GALLITO POLANCO: Blood COLLECTED: 12/26/17 15:49ANTIBIOTICS AT RADHA.: RECEIVED : 12/26/17 15:56Culture, Blood 2 FINAL 12/31/17 16:15 No growth after 5 days of incubation. Normal [facility] Culture, Respiratoryon 12-26 Culture, Respiratory ORDERED BY: GALLITO POLANCO: Sputum Expectorated COLLECTED: 12/26/17 14:45ANTIBIOTICS AT RADHA.: RECEIVED : 12/29/17 12:46Gram Stain Direct FINAL 12/29/17 16:19 Moderate WBC's Few epithelial cells Few Yeast with pseudohyphaeCulture, Respiratory INTERIM 12/30/17 11:53 Light growth Gram negative arminda ID and sensitivity to follow Moderate growth Yeast No further workup Normal [facility] Hepatitis C Antibodyon 12-26 Hepatitis C Antibody Interp REACTIVE Abnormal [facility] Comment on above: Order Comment: Colle ction has been rescheduled by VIVIEN at 12/26/2017 14:59. Reason:patient refusing until she gets pain meds Influenza A and Bon 12-27-19 Influenza A Antigen Negative Normal Negative [facility] Influenza B Antigen Negative Normal Negative [facility] Bacterial susceptibility fox el by [facility]Con 12-25-2017 Bacterial susceptibility panel by Minimum inhibitory concentration (ISRA) ORDERED BY: FLOYD SNIDER: Blood Blood COLLECTED: 12/25/17 21:04ANTIBIOTICS AT RADHA.: RECEIVED : 12/25/17 21:04CALL [facility] LOER tel. [phone],Blood Culture results called to and read back by Beena MASON, 12/26/2017 19:32, by Jodie, Blood FINAL 12/28/17 07:32 1 out of 2 blood cultures POSITIVE for Serratia marcescens S. marces ANTIBIOTICS ISRA Interp A moxicillin/Clavulanate >=32 R Cefepime <=1 S Ceftriaxone <=1 S Ciprofloxacin <=0.25 S Gentamicin <=1 S Trimethoprim/Sulfamethoxaz ole <=20 S S=SUSCEPTIBLE I=INTERMEDIATE R=RESISTANT Normal [facility] CBC With Platelet and Differ entialon 12-25-2017 Basophils Auto #/vol (Bld) 0.0 10*3/uL Normal 0.0-0.2 [facility] Basophils/100 WBC Auto (Bld) 0.5 % Normal [facility] Eosinophils Auto #/vol (Bld) 0.0 10*3/uL Normal 0.0-0.7 [facility] Eosinophils/100 WBC Auto (Bld) 0.2 % Normal [facility] Erythrocyte distribution width Auto Ratio (RBC) 18.9 % Critically high 11.5-14.5 [facility] Hematocrit Auto Volume Fraction (Bld) 23.6 % Low 37.0-47.0 [facility] Hemoglobin mass conc (Bld) 8.0 g/dL Low 12.0-16.0 [facility] Hypochromia PRESENT Normal [facility] Lymphocytes Auto #/vol (Bld) 1.3 10*3/uL Normal 1.0-4.8 [facility] Lymphocytes/100 WBC Auto (Bld) 16.6 % Normal [facility] MCH Auto Entitic mass (RBC) 26.5 pg Low 27.0-31.3 [facility] MCHC Auto mass conc (RBC) 33.9 % Normal 33.0-37.0 [facility] MCV Auto Entitic volume (RBC) 78.1 fL Low 82.0-100.0 [facility] Monocytes Auto #/vol (Bld) 0.5 10*3/uL Normal 0.2-0.8 [facility] Monocytes/100 WBC Auto (Bld) 6.3 % Normal [facility] Neutrophils Auto #/vol (Bld) 6.2 10*3/uL Normal 1.4-6.5 [facility] Neutrophils/100 WBC Auto (Bld) 76.4 % Normal [facility] Platelets Auto #/vol (Bld) 178 10*3/uL Normal 130-400 [facility] RBC Auto #/vol (Bld) 3.02 10*6/uL Low 4.20-5.40 [facility] WBC Auto #/vol (Bld) 8.1 10*3/uL Normal 4.8-10.8 [facility] Comprehensive Metabolic Pane thanh 12-25-2017 Albumin mass conc 3.2 g/dL Low 3.9-4.9 [facility] ALP enzyme act/vol 39 U/L Low 40-130 [facility] ALT enzyme act/vol U/L Normal 0-33 [facility] Anion gap 3 molar conc 14 mmol/L Critically high 7-13 [facility] AST enzyme act/vol 10 U/L Normal 0-35 [facility] Bilirubin mass conc 0.6 mg/dL Normal 0.0-1.2 [facility] Calcium mass conc 8.7 mg/dL Normal 8.6-10.2 [facility] Chloride molar conc 94 mmol/L Low 98-107 [facility] CO2 molar conc 24 mmol/L Normal 22-29 [facility] Creatinine mass conc 0.68 mg/dL Normal 0.50-0.90 [facility] GFR/1.73 sq M predicted among blacks MDRD vol rate/area (S/P/Bld) mL/min/{1.73_m2} Normal >60 [facility] Comment on above: Result Comment: >60 mL/min/1.73m2 EGFR, calc. for ages 18 and older using theMDRD formula (not corrected for weight), is valid for stablerenal function. GFR/1.73 sq M.predicted MDRD vol rate/area mL/min/{1.73_m2} Normal >60 [facility] Comment on above: Result Comment: >60 mL/min/1.73m2 EGFR, calc. for ages 18 and older using theMDRD formula (not corrected for weight), is valid for stablerenal function. Globulin Calculated mass conc (S) 4.4 g/dL Critically high 2.3-3.5 [facility] Glucose mass conc 120 mg/dL Critically high 74-109 [facility] Potassium molar conc 4.2 mmol/L Normal 3.5-5.1 [facility] [facility] Protein mass conc 7.6 g/dL Normal 6.4-8.1 [facility] Sodium molar conc 132 mmol/L Normal 132-144 [facility] Urea nitrogen mass conc 7 mg/dL Normal 6-20 [facility] Creatine Kinaseon 12-25-2017 CK enzyme act/vol 19 U/L Normal 0-170 [facility] Culture, Blood 2on 8 Culture, Blood 2 OR DERED BY: FLOYD SNIDER: Blood COLLECTED: 12/25/17 21:04ANTIBIOTICS AT RADHA.: RECEIVED : 12/25/17 21:04Culture, Blood 2 FINAL 12/30/17 22:15 No growth after 5 days of incubation. Normal [facility] Lactic Acidon 12-25-2017 Lactate molar conc 2.1 mmol/L Normal 0.5-2.2 [facility] Prothrombin Timeon 8 INR Coag RelTime (PPP) 1.2 {INR} Normal [facility] Comment on above: Result Comment: Dimitrios [...] Coag time (PPP) 11.8 s Normal 9.6-12.3 [facility] Troponinon 12-25-2017 Troponin I.cardiac mass conc ng/mL Normal 0.000-0.01 [facility] Comment on above: Result Comment: Meth odology by Troponin T. UR Drug Screen Rapidon 12-25 Drug Screen Comment see below Normal [facility] Comment on above: Result Comment: This method is a screening test to detect only these drugclasses as part of a medical workup. Confirmatory testingby another method should be ordered if clinically indicated. UR Amphetamines Rapid Screen Negative Normal Negative < [facility] Comment on above: Result Comment: Effe ctive: 08/30/17Methodology and/or Reference Range-Cutoff has changed. UR Barbiturates Rapid Screen Negative Normal Negative < [facility] Comment on above: Result Comment: Effe ctive: 08/30/17Methodology and/or Reference Range-Cutoff has changed. UR Benzo Rapid Screen Negative Normal Negative < [facility] Comment on above: Result Comment: Effe ctive: 08/30/17Methodology and/or Reference Range-Cutoff has changed. UR Cannabinoids Rapid Screen Negative Normal Negative < [facility] UR Cocaine Rapid Screen Negative Normal Negative < [facility] Comment on above: Result Comment: Effe ctive: 08/30/17Methodology and/or Reference Range-Cutoff has changed. UR Opiates Rapid Screen Negative Normal Negative < [facility] Comment on above: Result Comment: Effe ctive: 08/30/17Methodology and/or Reference Range-Cutoff has changed. UR PCP Rapid Screen Negative Normal Negative < [facility] UR Tricyclics Rapid Screen - Rapid Negative Normal Negative < [facility] Comment on above: Result Comment: Effe ctive: 08/30/17Methodology and/or Reference Range-Cutoff has changed. UR HCG Qualitativeon 018 HCG.beta subunit ( test) Ql (U) Negative Normal Detects HC [facility] Urinalysis, reflex to cultur eugenia 12-25-2017 Bilirubin Ql (U) Negative Normal Negative [facility] Clarity Nom (U) Clear Normal Clear [facility] Color Nom (U) Yellow Normal Straw/Culpeper [facility] Glucose Ql (U) Negative Normal Negative [facility] Hemoglobin Test strip Ql (U) Negative Normal Negative [facility] Ketones Ql (U) Negative Normal Negative [facility] Leukocyte esterase Test strip Ql (U) Negative Normal Negative [facility] Nitrite Test strip Ql (U) Negative Normal Negative [facility] pH Test strip (U) 7.0 [pH] Normal 5.0-9.0 [facility] Protein Test strip Ql (U) Negative Normal Negative [facility] Specific gravity Relative Density (U) 1.015 Normal 1.005-1.03 [facility] Urine Reflexed to Culture Not Indicated Normal [facility] Urobilinogen Test strip Qn (U) 0.2 {Katy'U}/dL Normal < 2.0 [facility] Vital Signs Date Time Vital Sign Value Performing Clinician Faci lity 12-25-2017 19:30-0500 Body mass index (BMI) [Ratio] IVAN FERNANDEZ [facility] Encounters Encounter Date Encounter Type Care [...] 04-24-2019 Emergency department [facility] Start: 04-05-2018 End: 04-05-2018 Emergency department patient visit NO FAMILY DOCTOR NO FAMILY DOCTOR Facility:[facility] [employer] Start: 02-01-2018 End: 02-02-2018 Patient encounter procedure [facility] Start: 01-31-2018 End: 02-01-2018 Patient encounter procedure [facility] Start: 01-30-2018 End: 01-31-2018 Patient encounter procedure [facility] Start: 01-29-2018 End: 01-30-2018 Patient encounter procedure [facility] Start: 01-28-2018 End: 01-29-2018 Patient encounter procedure [facility] Start: 01-27-2018 End: 01-28-2018 Patient encounter procedure [facility] Start: 01-26-2018 End: 01-27-2018 Patient encounter procedure [facility] Start: 01-25-2018 End: 01-26-2018 Patient encounter procedure [facility] Start: 01-24-2018 End: 01-25-2018 Patient encounter procedure [facility] Start: 01-23-2018 End: 01-24-2018 Patient encounter procedure [facility] Start: 01-22-2018 End: 01-23-2018 Patient encounter procedure [facility] Start: 01-21-2018 End: 01-22-2018 Patient encounter procedure [facility] Start: 01-20-2018 End: 01-21-2018 Patient encounter procedure [facility] Start: 01-19-2018 End: 01-20-2018 Patient encounter procedure TINA A DIANNE [facility] Start: 01-18-2018 End: 01-19-2018 [facility] Start: 01-17-2018 End: 01-18-2018 Patient encounter procedure TINA [facility] Start: 01-16-2018 End: 01-17-2018 [facility] Start: 01-15-2018 End: 01-16-2018 Patient encounter procedure TINA Renetta DEAN [facility] Start: 01-14-2018 End: 01-15-2018 Patient encounter procedure TINA Renetta DEAN [facility] Start: 01-13-2018 End: 01-14-2018 Patient encounter procedure TINA DEAN [facility] Start: 01-12-2018 End: 01-13-2018 [facility] Start: 01-11-2018 End: 01-12-2018 [facility] Start: 01-10-2018 End: 01-11-2018 [facility] Start: 01-09-2018 End: 01-10-2018 [facility] Start: 01-08-2018 End: 01-09-2018 Patient encounter procedure TINA DEAN [facility] Start: 01-07-2018 End: 01-08-2018 [facility] Start: 01-06-2018 End: 01-07-2018 [facility] Start: 01-05-2018 End: 01-06-2018 [facility] Start: 12-26-2017 End: 01-04-2018 Evaluation and management of inpatient [facility] Start: 12-25-2017 End: 12-25-2017 Emergency department patient visit [facility] Procedures Date Procedure Procedure Detail Performing [...] VERO BAG Start: 01-03-2018 NURSING COMMUNICATION Y [facility] Start: 01-03-2018 INCENTIVE SPIROMETRY RT VERO Start: [...] 12-31-2017 Insj prph cvc w/o house bq port/manager of patient age 5 yr/> VERO Start: 12-31-2017 Us [...] OXIMETRY, CONTINUOUS VERO BAGHDY Start: 12-29-2017 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, 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 B Start: 12-29-2017 INCENTIVE SPIROMETRY RT VERO Start: 12-29-2017 INCENTIVE SPIROMETRY RT VERO Start: 12-29-2017 INITIATE OXYGEN THER APY PROTOCOL VERO Start: 12-29-2017 PULSE OXIMETRY, CONTINUOUS VERO BAGHD Start: 12-29-2017 INCENTIVE SPIROMETRY RT EVRO Start: 12-29-2017 Blood count complete automated VERO [...] RT VERO Start: 12-28-2017 PULSE OXIMETRY, CONTINUOUS VEOR BAGHDY Start: 12-28-2017 Blood count complete automated [...] Date Payer Category Payer Unknown 2018 Medicaid [id number] 2017 Medicaid ACUTE 04-15-2016 Medicaid [id number] 1985 Unknown [id number] 2.16.84 [id number] 1985 Unknown [id number] 2.16.8 40.1.425596.3.579.2.182 1985 Unknown [id number] 2.16. 840.1.823116.3.579.2.732 1985 Unknown [id number] 2.16.84 0.1.224222.3.579.2.593 1985 Unknown [id number] 2.16.84 0.1.249127.3.579.2.593 1985 Unknown [id number] 2.16.84 0.1.992230.3.579.2.593 1985 Unknown [id number] 2.16.84 0.1.015462.3.579.2.593 1985 Unknown [id number] 2.16.84 0.1.161990.3.579.2.593 1985 Unknown [id number] 2.16. 840.1.614366.3.579.2.196 1985 Unknown [id number] 2.16. 840.1.674819.3.579.2.196 1985 Unknown [id number] 2.16. 840.1.644399.3.579.2.196 1985 Unknown [id number] 2.16.84 0.1.935618.3.579.2.9 1985 Unknown [id number] 2.16.84 0.1.776953.3.579.2.1258 1985 Unknown [id number] 2.16.84 0.1.307289.3.579.2.9 1985 Unknown [id number] 2.16.840 .1.388016.3.579.2.1258 1985 Unknown [id number] 2.16.840 .1.708785.3.579.2.1258 1985 Unknown [id number] 2.16.840 .1.943131.3.579.2.1258 1985 Unknown [id number] 2.16.840 .1.771541.3.579.2.9 1985 Unknown [id number] 2.16.840. 1.897872.3.579.2.9 02-15-1959 Unknown [id number] Self-pay Unknown [id number] 2.16.8 40.1.235410.3.579.2.355 Summary Purpose Family History No Family History [...] section and content) DATE CREATED AUTHOR 02/04/2018 [facility] DATE CREATED AUTHOR AUTHOR'S ORGANIZ ATION 02/19/2018 [facility] DATE CREATED AUTHOR AUTHOR'S ORGANIZ ATION 05/02/2018 [facility] DATE CREATED AUTHOR AUTHOR'S ORGANIZ ATION [facility]/15/2021 [facility] DATE CREATED AUTHOR AUTHOR'S ORGANIZ ATION 06/29/2022 [facility] DATE CREATED AUTHOR AUTHOR'S ORGANIZ ATION 07/25/2022 [facility] DATE CREATED AUTHOR AUTHOR'S ORGANIZ ATION 04/20/2023 [facility] FOR RECORDS PERTAINING TO PATIENTS WHO ARE [...] BE BASED ON THE PRIMARY CLINICAL RECORDS. [employer] provides no warranty or guarantee of the accuracy or completeness of information in this document.
--- NOTE | 2023-04-20 19:26 | CT_ITS ---
[address] [address] Patient Name: RYAN HALL MRN: [id number] date: 1985 Sex: F Assigned Patient Location: ER Current Patient Location: Accession/Order Number: [id number] Exam Date: 04/20/2023 19:50 Report Date: 04/20/2023 21:00 At the request of: JENN ASH Procedure: CT angio chest EXAM: CT angio chest TECHNIQUE: Axial CT angiogram technique imaging was obtained of the chest following intravenous contrast administration and including sagittal and coronal slab maximum intensity projection images. 3-D volume rendering was created of the vasculature. Dose reduction techniques were achieved by using automated exposure control and/or adjustment of mA and/or kV according to patient size and/or use of iterative reconstruction technique. HISTORY: elevated d-dimer COMPARISON: 06/16/2021 FINDINGS: Neck and Axilla: No lower neck or axillary lymphadenopathy. Mediastinum and [place]: No hilar or mediastinal lymphadenopathy. Esophagus is unremarkable. Heart and Major Vessels: The heart appears unremarkable for size without pericardial effusion. The aorta and central pulmonary arteries are unremarkable for size.No pulmonary artery filling defects to suggest acute pulmonary embolism. Lung Resendiz: Stable scarring at the right apex. Linear atelectasis and scarring at the right base. Pleural Spaces: No significant pleural effusion. No pneumothorax. Upper Abdomen: No acute abnormality identified. Chest Wall: No acute abnormality. CT/CT angio chest IMPRESSION: No evidence for acute pulmonary embolism. No acute pulmonary consolidation. Electronically authenticated by: JING ABDI Date: 04/20/2023 21:00
--- NOTE | 2023-04-20 19:26 | ECG_ITS ---
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
--- NOTE | 2023-04-20 19:27 | ED_ITS ---
HPI - General Adult General Chief complaint: Recheck/Abnormal Lab/Rx Stated complaint: ABNORMAL LABS Time Seen by Provider: 04/20/23 19:22 Source: patient Mode of arrival: walk-in Limitations: no limitations History of Present Illness HPI narrative: mid back pain. States she has been experiencing pain of her mid back for a couple of days. States her doctor ordered labs and her d-dimer returned elevated. She is not short of breath. No swelling or pain of her lower extremities. No light headiness or syncope. 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 No longer using IV drugs. Related Data Home Medications Medication Instructions Recorded Confirmed buprenorphine HCl 8 mg sublingual 16 mg sublingual DAILY 09/05/22 04/14/23 tablet doxylamine succinate 25 mg tablet 25 mg PO .hs 09/05/22 01/12/23 (Nighttime Sleep-Aid (doxylamine)) vit no.95-ferrous 1 tab PO DAILY 09/05/22 04/14/23 fumarate 28 mg-folic acid 800 mcg tablet () albuterol sulfate 90 mcg/actuation 2 puff inhalation Q4H PRN 04/14/23 04/14/23 aerosol inhaler shortness of breath or wheezing fluticasone propionate 50 2 spray intranasal .morning 04/14/23 04/14/23 mcg/actuation nasal spray,suspension Previous Rx's Medication Instructions Recorded ibuprofen 800 mg tablet 800 mg PO Q8H PRN pain 14 days #40 01/13/23 tabs clindamycin HCl 150 mg capsule 300 mg (2 x 150 mg) PO Q6H 10 days 04/14/23 #80 caps Allergies Allergy/AdvReac Type Severity Reaction Status Date / Time Penicillins Allergy Severe Anaphylaxis Verified 04/20/23 18:43 acetaminophen [From Vicodin] AdvReac Mild Vomiting Verified 04/20/23 18:43 hydrocodone [From Vicodin] AdvReac Mild Vomiting Verified 04/20/23 18:43 CODIENE AdvReac Mild Nausea Uncoded 04/20/23 18:43 TRAMADOL AdvReac Mild Vomiting Uncoded 04/20/23 18:43 Review of Systems ROS Status of ROS 10 or more systems reviewed and unremark able except as noted in history and below PFSH PFSH Social History Smoking status: Current every day smoker What tobacco products do you use: cigarettes Packs per day: 1 Cigarettes per day: 20 Exam Constitutional Vital Signs, click to edit/add: Last Vital Signs Temp 98.6 F 04/20/23 18:44 Pulse 74 04/20/23 20:40 Resp 17 04/20/23 20:40 BP 160/100 H 04/20/23 18:44 Pulse Ox 99 04/20/23 18:44 O2 Del Method Room Air 04/20/23 18:44 Common normals: no apparent distress, oriented x3, healthy appearing, alert and well nourished HENIL Common normals: normocephalic and head/scalp atraumatic Chest Common normals: inspection of chest normal, palpation of chest normal and inspection of breasts normal Respiratory Common normals: normal respiratory effort, no retractions, no use of accessory muscles and clear to auscultation bilaterally Cardio Common normals: regular rate, regular rhythm, S1 normal heart sound and S2 normal heart sound GI Common normals: Normal to inspection, nondistended, normoactive bowel sounds present, soft to palpation and non-tender Extremity Common normals: normal to inspection and full ROM Other: no swelling of her lower extremities. nontender Neuro Common normals: oriented x3, CN's II-XII intact bilaterally, moves all extremities and no focal motor deficits Psych Appearance: grossly normal Course Vital Signs Vital signs: Vital Signs Temperature 98.6 F 04/20/23 18:44 Pulse Rate 86 04/20/23 18:44 Respiratory Rate 16 04/20/23 18:44 Blood Pressure 160/100 H 04/20/23 18:44 Pulse Oximetry 99 04/20/23 18:44 Oxygen Delivery Method Room Air 04/20/23 18:44 Temperature 98.6 F 04/20/23 18:44 Pulse Rate 74 04/20/23 20:40 Respiratory Rate 17 04/20/23 20:40 Blood Pressure 160/100 H 04/20/23 18:44 Pulse Oximetry 99 04/20/23 18:44 Oxygen Delivery Method Room Air 04/20/23 18:44 Medical Decision Making MDM Narrative Medical decision making narrative: patient presents with mid back pain and reported positive D-dimer ordered by her PCP. directed to the ER because of the abnormal lab. CTA chest without PE. Patient reassured and discharged home Lab Data Labs: Lab Results 04/20/23 Range/Units 19:15 WBC 6.5 (4.0-11.0) 10^3/uL RBC 4.09 L (4.20-5.40) 10^6/uL Hgb 11.3 L (12.0-16.0) g/dL Hct 35.9 L (36.0-48.0) % MCV 87.8 (81.0-99.0) fL MCH 27.6 (26.7-34.0) pg MCHC 31.5 (29.9-35.2) g/dL RDW 14.6 (11.0-15.0) % Plt Count 216 (150-450) 10^3/uL MPV 9.6 (9.5-13.5) fL Neut % (Auto) 67.8 (43.0-75.0) % Lymph % (Auto) 19.8 L (20.5-60.0) % Cavalier % (Auto) 5.6 (1.7-12.0) % Eos % (Auto) 4.7 (0.9-7.0) % Baso % (Auto) 1.6 (0.2-2.0) % Neut # (Auto) 4.4 (1.4-6.5) 10^3/uL Lymph # (Auto) 1.3 (1.2-3.8) 10^3/uL Cavalier # (Auto) 0.4 (0.3-0.8) 10^3/uL Eos # (Auto) 0.3 (0.0-0.7) 10^3/uL Baso # (Auto) 0.1 (0.0-0.1) 10^3/uL Abs Immat Gran (auto) 0.03 (0.00-0.03) 10^3/uL Imm/Tot Granulo (auto) 0.5 (0.0-0.5) % Sodium 140 (136-145) mmol/L Potassium 4.3 (3.5-5.1) mmol/L Chloride 106 (98-107) mmol/L Carbon Dioxide 28.5 (21.0-32.0) mmol/L Anion Gap 9.8 BUN 21.0 H (7.0-18.0) mg/dL Creatinine 1.03 H (0.55-1.02) mg/dL Est GFR ( Amer) >60 (>=60) Est GFR (Non-Af Amer) 60 (>=60) BUN/Creatinine Ratio 20.4 Glucose 96 (74-106) mg/dL Calcium 8.8 (8.5-10.1) mg/dL Troponin I High Sens 4.0 (4.0-51.3) pg/mL Imaging Data Chest x-ray: Radiologist's impression: ITS Impressions Chest CTA 04/20/23 19:26 IMPRESSION: No evidence for acute pulmonary embolism. No acute pulmonary consolidation. Electronically authenticated by: JING ABDI Date: 04/20/2023 21:00 Discharge Plan Discharge Chief Complaint: Recheck/Abnormal Lab/Rx Clinical Impression: Back pain, thoracic Patient Disposition: Home, Self-Care Prescriptions / Home Meds: No Action albuterol sulfate 90 mcg/actuation HFA aerosol inhaler 2 puff INHALATION Q4H PRN (Reason: shortness of breath or wheezing) fluticasone propionate 50 mcg/actuation spray,suspension 2 spray INTRANASAL .morning clindamycin HCl 150 mg capsule 300 mg PO Q6H 10 Days Qty: 80 0RF Nighttime Sleep-Aid (doxylamn) 25 mg tablet 25 mg PO .hs buprenorphine HCl 8 mg tablet, sublingual 16 mg SUBLINGUAL DAILY PNV cmb#95-ferrous fumarate-FA [] 28 mg iron- 800 mcg tablet 1 tab PO DAILY ibuprofen 800 mg tablet 800 mg PO Q8H PRN (Reason: pain) 14 Days Qty: 40 0RF Instructions: Thoracic Pain (ED) Referrals: Shaikh Garland MD [Primary Care Provider] - 1 week Stand Alone Forms: Portal Instructions
[2023-04-20 20:14] LABS: Basophils Absolute Auto 0.1 10^3/uL (0.0-0.1); Basophils Percent Auto 1.6 % (0.2-2.0); Eosinophils Absolute Auto 0.3 10^3/uL (0.0-0.7); Eosinophils Percent Auto 4.7 % (0.9-7.0); Hematocrit 35.9 % (36.0-48.0); Hemoglobin 11.3 g/dL (12.0-16.0); Immature Granulocytes Abs Auto 0.03 10^3/uL (0.00-0.03); Immature Granulocytes Pct Auto 0.5 % (0.0-0.5); Lymphocytes Absolute Auto 1.3 10^3/uL (1.2-3.8); Lymphocytes Percent Auto 19.8 % (20.5-60.0); Mean Corpuscular HGB Conc 31.5 g/dL (29.9-35.2); Mean Corpuscular Hemoglobin 27.6 pg (26.7-34.0); Mean Corpuscular Volume 87.8 fL (81.0-99.0); Mean Platelet Volume 9.6 fL (9.5-13.5); Monocytes Absolute Auto 0.4 10^3/uL (0.3-0.8); Monocytes Percent Auto 5.6 % (1.7-12.0); Neutrophils Absolute Auto 4.4 10^3/uL (1.4-6.5); Neutrophils Percent Auto 67.8 % (43.0-75.0); Platelet Count 216 10^3/uL (150-450); Red Blood Count 4.09 10^6/uL (4.20-5.40); Red Cell Distribution Width 14.6 % (11.0-15.0); White Blood Count 6.5 10^3/uL (4.0-11.0)
[2023-04-20 20:32] LABS: Anion Gap 9.8; BUN Creatinine Ratio 20.4; Calcium 8.8 mg/dL (8.5-10.1); Carbon Dioxide 28.5 mmol/L (21.0-32.0); Chloride 106 mmol/L (98-107); Estimated GFR (African America >60 (>=60); Estimated GFR (Non-African Ame 60 (>=60); Glucose 96 mg/dL (74-106); Potassium 4.3 mmol/L (3.5-5.1); Sodium 140 mmol/L (136-145)
== END 2023-04-20 21:57 | disposition home or self-care (01) ==
PROVIDERS: Emergency Provider Internal Medicine; PCP Internal Medicine
DX: M54.6 Pain in thoracic spine (principal); D64.9 Anemia, unspecified; R07.89 Other chest pain; M89.8X1 Other specified disorders of bone, shoulder; R79.89 Other specified abnormal findings of blood chemistry; F17.210 Nicotine dependence, cigarettes, uncomplicated
CPT/HCPCS: 36415; 71275; 80048; 80053; 84484; 85025; 85378; 93005; 99285; Q9967

== ENCOUNTER 2024-03-10 16:45 | Outpatient (OUT) | payer MEDICAID, SELFPAY ==
--- OUTSIDE RECORDS SUMMARY | 2024-03-10 17:01 | XMS_ITS | CCD ---
Author Organization [facility] Care Team Providers Care Ccie Name Role Phone IVAN FERNANDEZ Unavailable Unavailable [...] Unavailable Unavailable ABBUD, TINA A Unavailable Unavailable LASHANDA SAMEH R Unavailable Unavailable LUIS LÓPEZ I Unavailable Unavailable KATHERINE, TANIKA Unavailable Unavailable QUERUBIN BRIAN Unavailable Unavailable CARBONEAYANA BURGOS K Unavailable Unavailable NO FAMILY DOCTOR, NO FAMILY DOCTOR Primary Care Unavailable GABO HAYES Attending Unavailable PROVIDER, UNKNOWN Admitting Unavailable YUMIKO ALLISON Attending Unavailable SHAIKH GARLAND H Admitting Unavailable YULIA GARLANDIKH H Attending Unavailable JOSE ALFREDOWAD, KISER H Primary Care Unavailable FAWWAD, KISER [...] Briones Attending Lien Garland MD, Referring Unavailable Meggan MCKEON, Suresh Stallings Attending Unavaila ble FAWWAD, Attending Unavailable FAWWAD, Attending Unavailable VILLASONYA SCHROEDER Attending Unavailabl EDUAR Tran Attending Unavailable FAWTANA, KISER Attending Unavailable EDUAR PADILLA Attending Unavailable FORESTJESSICA Riggs Attending Unavailable FORESTJESSICA Riggs Attending Unavailable URIAH SORIA Attending Unavailable FAWWAD, KISER Attending Unavailable FAWWAD, KISER Attending Unavailable VILLASONYA SCHROEDER Attending Unavailabl e FAWWAD, KISER Attending Unavailable FAWWADamon, Attending Unavailable EDUAR PADILLA Attending Unavailable Navarro Haider MD Primary Care Provider [phone] Sonya Villa NP Unavailable [phone] Allergies Allergy Classification Reported Allergen(s) Allergy Type Date of Onset Reaction(s) Facility (10 sources) Acetaminophen / HYDROcodone; Translations: [HYDROCODONE-ACETAMI NOPHEN] Drug Allergy 10-21-19 13 Unknown [facility] Repository (11 sources) traMADol; Translations: [TRAMADOL] Drug Allergy 10-21-19 13 Unknown [facility] Repository (1 source) Acetaminophen / HYDROcodone Drug Allergy 08-28-19 16 [facility] Repository (1 source) Codeine Drug Allergy 05-08-19 09 The [facility] Repository (1 source) Penicillin Drug Allergy 06-15-19 20 The [facility] Repository (9 sources) Codeine Drug Allergy 07-29-19 23 [facility] Work Phone: (9 sources) Penicillin G Drug Allergy 12-30-19 23 [facility] (9 sources) Penicillins Propensity to adverse reactions 07-29-19 23 [facility] (9 sources) Sulfamethoxazole / Trimethoprim Drug Allergy 08-12-19 24 [facility] Work Phone: (9 sources) Vancomycin Drug Allergy 12-27-19 18 Anaphylaxis [facility] Medications Current Medications Medication Drug Class(es) Dates Sig (Normalized) Sig (Original) buprenorphine 8 mg / naloxone 2 mg sublingual film (9 sources) Partial Opioid Agonist, Opioid Antagonist Start: 05-03-2023 Buprenorphine HCl-Naloxone HCl (Suboxone) 8-[address] 2 Film under the tongue Daily 05/03/2023 Active clotrimazole 10 mg/ml topical cream (2 sources) Azole Antifungal Start: 11-23-2023 End: 12-07-2023 clotrimazole (Lotrimin) 1 % cream Indications: Tinea pedis of both feet Apply topically 2 (two) times a day for 14 days 30 g 1 11/23/2023 12/07/2023 Active doxycycline hyclate 100 mg delayed release oral tablet (3 sources) Tetracycline-clas s Drug Start: 03-09-2024 End: 03-14-2024 doxycycline (Doryx) 100 MG EC tablet Indications: Acute paronychia of right thumb Take 1 tablet (100 mg) by mouth in the morning and 1 tablet (100 mg) before bedtime. Do all this for 5 days. Do not crush or chew. Take with a full glass of water and do not lie down for at least 30 minutes after.. 10 tablet 03/09/2024 03/14/2024 Active Start: 12-09-2023 End: 12-16-2023 take 1 tablet by mouth in the morning doxycycline (Vibra-Tabs) 100 MG tablet Indications: Acute non-recurrent frontal sinusitis Take 1 tablet (100 mg) by mouth in the morning and 1 tablet (100 mg) before bedtime. Do all this for 7 days. Take with a full glass of water. 14 tablet 12/09/2023 12/16/2023 Active etonogestrel 68 mg drug implant (9 sources) Progestin etonogestrel-elu ting (Nexplanon) 68 mg contraceptive implant 1 each by Implant route 1 (one) time Active fluticasone propionate 0.05 mg/actuat metered dose nasal spray (9 sources) Corticosteroid Start : 04-05 take 2 spray(s) nasal route in the morning fluticasone (Flonase) 50 MCG/ACT nasal spray Indications: Acute cough , Chronic allergic rhinitis Administer 2 sprays into each nostril in the morning. Shake gently. Before first use, prime pump. After use, clean tip and replace cap.. 16 g 2 04/05/2023 Active hydroCHLOROthiazide 12.5 mg oral tablet (6 sources) Thiazide Diuretic Start : 11-22 End: 11-22 take 1 tablet by mouth once daily hydroCHLOROthiazide (HYDRODiuril) 12.5 MG tablet Indications: Blood pressure elevated without history of HTN Take 1 tablet (12.5 mg) by mouth Daily 30 tablet 11 11/23/2023 11/22/2024 Active losartan potassium 25 mg oral tablet (2 sources) Angiotensin 2 Receptor Ketan Start : 03-09 End: 03-09 take 1 tablet by mouth once daily losartan (Cozaar) 25 MG tablet Indications: Primary hypertension (CMS/HCC) Take 1 tablet (25 mg) by mouth Daily 30 tablet 11 03/09/2024 03/09/2025 Active mupirocin 0.02 mg/mg topical ointment (2 sources) RNA Synthetase Inhibitor Antibacterial Start : 03-09 End: 03-14 Mupirocin 2 % kit Indications: Acute paronychia of right thumb Apply 1 application topically in the morning and 1 application before bedtime. Do all this for 5 days. 1 kit 03/09/2024 03/14/2024 Active naloxone hydrochloride 40 mg/ml nasal spray (2 sources) Opioid Antagonist Start : 03-02 naloxone (Narcan) 4 mg/0.1 mL nasal spray Administer 4 mg into affected nostril(s) if needed 03/02/2024 Active Completed/Discontinued Medications Medication Drug Class(es) Dates Sig (Normalized) Sig (Original) phentermine hydrochloride 37.5 mg oral tablet (9 sources) Sympathomimetic Amine Anorectic Start: 07-13-2023 End: 11-23-2023 take 1 tablet by mouth before mealtime phentermine (Adipex-P) 37.5 MG tablet Indications: Morbid obesity (CMS/HCC) Take 1 tablet (37.5 mg) by mouth in the morning. Take before meals. 30 tablet 08/12/2023 10/11/2023 Discontinued (Therapy completed) Vit-Fe Fumarate-FA ( Vitamins) 28-0.8 MG tablet (5 sources) Start: 11-25-2022 End: 11-23-2023 take 1 tablet by mouth once daily in the morning Vit-Fe Fumarate-FA ( Vitamins) 28-0.8 MG tablet Indications: Second trimester TAKE 1 TABLET BY MOUTH EVERY DAY IN THE MORNING 30 tablet 6 11/25/2022 11/23/2023 Discontinued (Therapy completed) Start: 11-25-2022 take 1 tablet by ivis th once daily in the morning Vit-Fe Fumarate-FA ( Vitamins) 28-0.8 MG tablet Indications: Second trimester TAKE 1 TABLET BY MOUTH EVERY DAY IN THE MORNING 30 tablet 6 11/25/2022 Active Problems Active Problems Problem Classification Problem Date Documented Da te Episodic/Chronic Abdominal pain (2 sources) Unspecified abdominal pain; Translations: [Unspecified abdominal pain] Onset: 04-05-2018 Episodic Allergic reactions (1 source) Allergy status to penicillin Onset: 04-05-2018 Episodic Chronic obstructive pulmonary disease and bronchiectasis [...] Periapical abscess without sinus Onset: 04-05-2018 Episodic Essential hypertension (4 sources) Essential hypertension; Translations: [Essential (primary) hypertension] Onset: 03-09-2024 03-09-2024 Chronic Fever of unknown origin (1 source) Fever, unspecified; Translations: [Fever, unspecified] Onset: 12-25-2017 Episodic Hepatitis (1 source) Chronic viral hepatitis C; Translations: [CHRONIC VIRAL HEPATITIS C] Onset: 04-23-2022 Chronic Menstrual disorders (4 sources) Irregular menstruation, unspecified; Translations: [IRREGULAR MENSTRUATION UNSPECIFIED] Onset: 06-15-2022 Chronic Mycoses (2 sources) Tinea pedis; Translations: [Tinea pedis] 11-23-2023 Episodic Other lower respiratory disease (2 sources) Shortness of breath; Translations: [Shortness of breath] Onset: 04-05-2018 Episodic Other nutritional; endocrine; and metabolic disorders (11 sources) Morbid obesity; Translations: [Morbid (severe) obesity due to excess calories] Onset: 03-03-2023 03-03-2023 Chronic Other and delivery including normal (1 source) Encounter for supervision of normal , unspecified, first trimester; Translations: [ENC SUP NORMAL PREG UNS FIRST TRI] Onset: 06-28-2022 Episodic Other screening for suspected conditions (not mental disorders or infectious disease) (4 sources) Abnormal findings on diagnostic imaging of other specified body structures; Translations: [ABNORML FIND DX IMG OT BODY STRUC] Onset: 08-11-2021 Chronic Other skin [...] (1 source) Tobacco use Onset: 04-05-2018 Episodic Skin and subcutaneous tissue infections (6 sources) Paronychia of thumb; Translations: [Cellulitis of right finger] Onset: 03-09-2024 03-09-2024 Episodic Substance-related disorders (20 sources) Nicotine dependence, cigarettes, uncomplicated; Translations: [Opioid abuse] Onset: 12-27-2017 03-03-2023 Chronic Unclassified (1 source) HIGH GRADE BACTREMIA,GNR [...] Classification Problem Date Documented Da te Episodic/Chronic Administrative/social admission (11 sources) Patient encounter status; Translations: [Persons encountering health services in other specified circumstances] Onset: 10-11-2023 10-11-2023 Episodic Bacterial infection; unspecified site (10 sources) Bacteremia; Translations: [History of methicillin resistant Staphylococcus aureus infection] Onset: 12-26-2017 04-05-2023 Episodic Deficiency and other anemia (9 sources) Anemia; Translations: [Anemia, unspecified] Onset: 04-19-2023 04-19-2023 Episodic Immunizations and screening for infectious disease (9 sources) Hepatitis C antibody test positive; Translations: [Other specified abnormal immunological findings in serum] Onset: 09-22-2022 04-05-2023 Episodic Nonspecific chest pain (9 sources) Chest pain; Translations: [Other chest pain] Onset: 04-19-2023 04-19-2023 Episodic Other bone disease and musculoskeletal deformities (9 sources) Scapulalgia; Translations: [Other specified disorders of bone, shoulder] Onset: 04-19-2023 04-19-2023 Episodic Other circulatory disease (11 sources) Elevated blood-pressure reading without diagnosis of hypertension; Translations: [Elevated blood-pressure reading, without diagnosis of hypertension] Onset: 04-05-2023 04-05-2023 Episodic Other ear and sense organ disorders (9 sources) Lesion of external ear; Translations: [Disorder of left external ear, unspecified] Onset: 05-05-2023 05-05-2023 Episodic Other lower respiratory disease (7 sources) Cough; Translations: [Acute cough] Onset: 04-05-2023 04-05-2023 Episodic Other lower respiratory disease (2 sources) Cough; Translations: [Acute cough] Onset: 04-05-2023 04-05-2023 Episodic Other skin disorders (9 sources) Eruption; Translations: [Rash and other nonspecific skin eruption] Onset: 05-26-2023 05-26-2023 Episodic Other skin disorders (9 sources) Ingrowing nail; Translations: [Ingrowing nail] Onset: 08-12-2023 08-12-2023 Episodic Other skin disorders (9 sources) Skin lesion; Translations: [Disorder of the skin and subcutaneous tissue, unspecified] Onset: 08-12-2023 08-12-2023 Episodic Other upper respiratory infections (10 sources) Acute upper respiratory infection; Translations: [Acute upper respiratory infection, unspecified] Onset: 03-03-2023 03-03-2023 Episodic Beverly-; endo-; and myocarditis; cardiomyopathy (except that caused by tuberculosis or sexually transmitted disease) (10 sources) Acute and subacute infective endocarditis; Translations: [Bacterial endocarditis] Onset: 12-26-2017 04-05-2023 Episodic Pulmonary heart disease (9 sources) Septic pulmonary embolism; Translations: [Septic pulmonary embolism without acute cor pulmonale] Onset: 04-05-2023 04-05-2023 Episodic Unclassified (1 source) HIGH GRADE BACTREMIA,GNR [...] Liliane Devries PA-C 07/18/22 11:45 EDT Normal [facility] Otolaryngology Office/Clinic Noteon 07-06-2022 Otolaryngology Office/Clinic [...] g, 0 Refill(s), 07/20/22 15:17:00 EDT, Pharmacy: [facility]/pharmacy #[id number] Medical Decision Making Chronic conditions NOT treated [...] Oral Jitendra (more content not included)... Normal [facility] US PREG TVon 06-26-2022 US PREG [...] RODRIGO ACOSTA Date: 2022-06-26 09:18 Normal [facility] Covid-19 PCR ([facility])on SARS-CoV-2 (COVID-19) RNA JANET+probe Ql (Unsp spec) Not detected Normal NOT DETECTED [facility] Comment on above: Result Comment: This test is not yet approved or cleared by the [place] FDA. When there are no FDA-approved or cleared tests available, and other criteria are met, FDA can make tests available under an emergency access mechanism called an Emergency Use Authorization (EUA). The EUA for this test is supported by the [employer] of Health and Human Service's (HHS's) declaration [...] consistent with SARS-CoV-2. Performed By: #### [facility] #### [facility] [address] [place] [address] Dr. Ja Cohen INFLUENZA A AND B AGon 06-16 INFLUANEGH SEE BELOW Normal [facility] Comment on above: Result Comment: Nega tive for Flu A protein angiten. Infection due to Flu A cannot be ruled out. Flu A angiten in the sample may be below the detection limit of the test. Performed By: #### I NFLUAB #### [facility] [address] [place] [address] Dr. Ja Cohen INFLUBNEGH SEE BELOW Normal [facility] Comment on above: Result Comment: Nega tive for Flu B protein antigen. Infection due to Flu B cannot be ruled out. Flu B antigen in the sample may be below the detection limit of the test. Performed By: #### I NFLUAB #### [facility] [address] [place] [address] Dr. Ja Cohen INFLUENZA A AG Negative Normal NEGATIVE SEE COMMENT [facility] Comment on above: Performed By: #### I NFLUAB #### [facility] [address] [place] [address] Dr. Ja Cohen INFLUENZA B AG Negative Normal NEGATIVE SEE COMMENT [facility] Comment on above: Performed By: #### I NFLUAB #### [facility] [address] [place] [address] Dr. Ja Cohen SYMPTOMATIC COVID-19 ANTIGEN on 06-16-2022 EUA Statement SEE BELOW Normal The [facility] Comment on above: Result Comment: [...] sooner. Performed By: #### C VDAGS #### [facility] [address] [place] [address] Dr. Ja Cohen SARS-CoV-2 (COVID-19) RNA JANET+probe Ql (Unsp spec) Negative Normal NEGATIVE [facility] Comment on above: Performed By: #### C VDAGS #### [facility] [address] [place] [address] Dr. Ja Cohen PREG QUANT HCGon 06-11-2022 HCG QUANT 93635 mIU/mL Normal [facility] Comment on above: Performed By: #### P REGQNT #### [facility] [address] [place] [address] Dr. Ja Cohen HCG RANGE SEE BELOW Normal [facility] Comment on above: Result Comment: 5-50 0.2-1 WEEK 50-500 1-2 WEEKS 100-5,000 2-3 WEEKS 500-10,000 3-4 WEEKS 1,000-50,000 4-5 WEEKS 10,000-100,000 5-6 WEEKS 15,000-200,000 6-8 WEEKS 10,000-100,000 2-3 MONTHS Performed By: #### P REGQNT #### [facility] [address] [place] [address] Dr. Ja Cohen ECHOCARDIO M/2D COMPLETEon 0 08-11-2021 ECHOCARDIO M/2D COMPLETE Patient: ALESHA KENNEY Exam Date: 08/11/2021 : 1985 Gender:F Ordering : SHAIKH Addy GARLAND . Admission #: [id number] Family : Order #: [id number] CLICK HERE TO VIEW EXAM ECHOCARDIOGRAM REPORT [...] Area(A4C): 23.40 cm2 Left Atrium Systolic Volume(A2C): 86163 mm3 Left Atrium Systolic Volume(A4C): 88722 mm3 Mitral Valve MV E to A Ratio: 1.90 MV Mean Gradient: 1 mm[Hg] Deceleration [place]: 6410 mm/s2 Mitral Valve A-Wave Peak Velocity: [...] Mederos M.D. on 08/11/2021 at 12:[address] [facility] AFB Culture with Stainon AFB Stain SEE NOTE Normal [facility] Comment on above: Result Comment: Nega tive for Acid Fast Bacteria.Less than 5 mL of specimen received.A minimum of 5 mL of sputum or fluid is recommendedfor recovery of acid fast bacilli (AFB).Volumes less than 5 mL are suboptimal and maycompromise recovery of AFB from culture. Final SEE NOTE Normal [facility] Comment on above: Result Comment: Cult ure negative for acid fast bacilliPerformed by [employer],[address] [place] [address] ejn.[employer], Artur Agustin MD - Lab. Director Preliminary SEE NOTE Normal [facility] Comment on above: Result Comment: Spec imen received and in progress.Positive culture results are called as soon as detected.Final report to follow in seven to eight weeksPerformed by [employer],[address] [place] [address] zsp.[employer], Artur Agustin MD - Lab. Director AFB Stain SEE NOTE Normal [facility] Comment on above: Order Comment: CALL [facility] LC1W tel. [phone], called hgb to ramila oseguera rn on 1w [facility] called to and read back by ramila oseguera on 1w, 12/27/201706:44, by RAYSHAWN Result Comment: Nega tive for Acid Fast Bacteria. Order Comment: Bronc h wash RULBronch Wash RUL Final SEE NOTE Normal [facility] Comment on above: Order Comment: Bronc h wash RULBronch Wash RUL Result Comment: Cult ure negative for acid fast bacilliPerformed by [employer],[address] [facility] [facility], [facility] [place] [address] ctn.[employer], Artur Agustin MD - Lab. Director Order Comment: CALL [facility] LC1W tel. [phone], called hgb to ramila oseguera rn on 1w by scbHematology results called to and read back by ramila oseguera on 1w, 12/27/201706:44, by [facility] Basic Metabolic Panelon 01-15 Anion gap 3 molar conc 10 mmol/L Normal 7-13 [facility] Calcium mass conc 8.7 mg/dL Normal 8.6-10.2 [facility] Chloride molar conc 105 mmol/L Normal 98-107 [facility] CO2 molar conc 26 mmol/L Normal 22-29 [facility] Creatinine mass conc 0.60 mg/dL Normal 0.50-0.90 [facility] GFR/1.73 sq M predicted among blacks MDRD vol rate/area (S/P/Bld) mL/min/{1.73_m2} Normal >60 [facility] Comment on above: Result Comment: >60 mL/min/1.73m2 EGFR, calc. for ages 18 and older using theMDRD formula (not corrected for weight), is valid for stablerenal function. GFR/1.73 sq M.predicted MDRD vol rate/area mL/min/{1.73_m2} Normal >60 [facility] Comment on above: Result Comment: >60 mL/min/1.73m2 EGFR, calc. for ages 18 and older using theMDRD formula (not corrected for weight), is valid for stablerenal function. Glucose mass conc 101 mg/dL Normal 74-109 [facility] Potassium molar conc 4.5 mmol/L Normal 3.5-5.1 [facility] Sodium molar conc 141 mmol/L Normal 132-144 [facility] Urea nitrogen mass conc 15 mg/dL Normal 6-20 [facility] CBC With Platelet No Differe ntialon 02-01-2018 Erythrocyte distribution width Auto Ratio (RBC) 23.7 % Critically high 11.5-14.5 [facility] Hematocrit Auto Volume Fraction (Bld) 28.0 % Low 37.0-47.0 [facility] Hemoglobin mass conc (Bld) 9.3 g/dL Low 12.0-16.0 [facility] MCH Auto Entitic mass (RBC) 29.1 pg Normal 27.0-31.3 [facility] MCHC Auto mass conc (RBC) 33.1 % Normal 33.0-37.0 [facility] MCV Auto Entitic volume (RBC) 87.9 fL Normal 82.0-100.0 [facility] Platelets Auto #/vol (Bld) 229 10*3/uL Normal 130-400 [facility] RBC Auto #/vol (Bld) 3.19 10*6/uL Low 4.20-5.40 [facility] WBC Auto #/vol (Bld) 2.7 10*3/uL Low 4.8-10.8 [facility] Culture, Funguson 01-29-2018 Final SEE NOTE Normal [facility] Comment on above: Order Comment: CALL [facility] LC1W tel. [phone], called hgb to ramila oseguera rn on 1w by scbHematology results called to and read back by ramila oseguera on 1w, 12/27/201706:44, by BONSA Result Comment: Cult ure negative for FungiPerformed by [employer],[address] [place] [id number] ekm.[employer], Artur Agustin MD - Lab. Director Basic Metabolic Panelon 01-15 Anion gap 3 molar conc 9 mmol/L Normal 7-13 [facility] Calcium mass conc 9.5 mg/dL Normal 8.6-10.2 [facility] Chloride molar conc 106 mmol/L Normal 98-107 [facility] CO2 molar conc 27 mmol/L Normal 22-29 [facility] Creatinine mass conc 0.71 mg/dL Normal 0.50-0.90 [facility] GFR/1.73 sq M predicted among blacks MDRD vol rate/area (S/P/Bld) mL/min/{1.73_m2} Normal >60 [facility] Comment on above: Result Comment: >60 mL/min/1.73m2 EGFR, calc. for ages 18 and older using theMDRD formula (not corrected for weight), is valid for stablerenal function. GFR/1.73 sq M.predicted MDRD vol rate/area mL/min/{1.73_m2} Normal >60 [facility] Comment on above: Result Comment: >60 mL/min/1.73m2 EGFR, calc. for ages 18 and older using theMDRD formula (not corrected for weight), is valid for stablerenal function. Glucose mass conc 93 mg/dL Normal 74-109 [facility] Potassium molar conc 4.7 mmol/L Normal 3.5-5.1 [facility] Sodium molar conc 142 mmol/L Normal 132-144 [facility] Urea nitrogen mass conc 14 mg/dL Normal 6-20 [facility] CBC With Platelet and Differ entialon 01-25-2018 Anisocytosis Auto Ql (Bld) PRESENT Normal [facility] Erythrocyte distribution width Auto Ratio (RBC) 28.7 % Critically high 11.5-14.5 [facility] Hematocrit Auto Volume Fraction (Bld) 24.9 % Low 37.0-47.0 [facility] Hemoglobin mass conc (Bld) 8.3 g/dL Low 12.0-16.0 [facility] MCH Auto Entitic mass (RBC) 28.2 pg Normal 27.0-31.3 [facility] MCHC Auto mass conc (RBC) 33.1 % Normal 33.0-37.0 [facility] MCV Auto Entitic volume (RBC) 85.0 fL Normal 82.0-100.0 [facility] Platelets Auto #/vol (Bld) 225 10*3/uL Normal 130-400 [facility] RBC Auto #/vol (Bld) 2.93 10*6/uL Low 4.20-5.40 [facility] Basophils Auto #/vol (Bld) 0.0 10*3/uL Normal 0.0-0.2 [facility] Basophils/100 WBC Auto (Bld) 1.0 % Normal [facility] Eosinophils Auto #/vol (Bld) 0.3 10*3/uL Normal 0.0-0.7 [facility] Eosinophils/100 WBC Auto (Bld) 5.4 % Normal [facility] Lymphocytes Auto #/vol (Bld) 1.7 10*3/uL Normal 1.0-4.8 [facility] Lymphocytes/100 WBC Auto (Bld) 37.1 % Normal [facility] Monocytes Auto #/vol (Bld) 0.2 10*3/uL Normal 0.2-0.8 [facility] Monocytes/100 WBC Auto (Bld) 5.1 % Normal [facility] Neutrophils Auto #/vol (Bld) 2.4 10*3/uL Normal 1.4-6.5 [facility] Neutrophils/100 WBC Auto (Bld) 51.4 % Normal [facility] WBC Auto #/vol (Bld) 4.7 10*3/uL Low 4.8-10.8 [facility] Culture, Funguson 01-24-2018 Final SEE NOTE Normal [facility] Comment on above: Order Comment: Bronc h Wash LLLBronch Wash LLL Result Comment: Cult ure POSITIVE forYeast not Cryptococcus speciesPerformed by [employer],[address] [place] [address] wvp.[employer], Artur Agustin MD - Lab. Director Preliminary SEE NOTE Normal [facility] Comment on above: Order Comment: Bronc h Wash LLLBronch Wash LLL Result Comment: Cult ure POSITIVE forYeast not Cryptococcus speciesPerformed by [employer],[address] [place] [address] ucb.[employer], Artur Agustin MD - Lab. Director Basic Metabolic Panelon 12-0 Anion gap 3 molar conc 10 mmol/L Normal 7-13 [facility] Calcium mass conc 9.4 mg/dL Normal 8.6-10.2 [facility] [facility] Chloride molar conc 102 mmol/L Normal 98-107 [facility] CO2 molar conc 27 mmol/L Normal 22-29 [facility] Creatinine mass conc 0.70 mg/dL Normal 0.50-0.90 [facility] GFR/1.73 sq M predicted among blacks MDRD vol rate/area (S/P/Bld) mL/min/{1.73_m2} Normal >60 [facility] Comment on above: Result Comment: >60 mL/min/1.73m2 EGFR, calc. for ages 18 and older using theMDRD formula (not corrected for weight), is valid for stablerenal function. GFR/1.73 sq M.predicted MDRD vol rate/area mL/min/{1.73_m2} Normal >60 [facility] Comment on above: Result Comment: >60 mL/min/1.73m2 EGFR, calc. for ages 18 and older using theMDRD formula (not corrected for weight), is valid for stablerenal function. Glucose mass conc 73 mg/dL Low 74-109 [facility] Potassium molar conc 4.6 mmol/L Normal 3.5-5.1 [facility] Sodium molar conc 139 mmol/L Normal 132-144 [facility] Urea nitrogen mass conc 15 mg/dL Normal 6-20 [facility] CBC With Platelet No Differe ntialon 01-21-2018 Erythrocyte distribution width Auto Ratio (RBC) 24.9 % Critically high 11.5-14.5 [facility] Hematocrit Auto Volume Fraction (Bld) 24.4 % Low 37.0-47.0 [facility] Hemoglobin mass conc (Bld) 8.1 g/dL Low 12.0-16.0 [facility] MCH Auto Entitic mass (RBC) 28.3 pg Normal 27.0-31.3 [facility] MCHC Auto mass conc (RBC) 33.3 % Normal 33.0-37.0 [facility] MCV Auto Entitic volume (RBC) 85.0 fL Normal 82.0-100.0 [facility] Platelets Auto #/vol (Bld) 184 10*3/uL Normal 130-400 [facility] RBC Auto #/vol (Bld) 2.88 10*6/uL Low 4.20-5.40 [facility] WBC Auto #/vol (Bld) 4.6 10*3/uL Low 4.8-10.8 [facility] Basic Metabolic Panelon 11-2 Anion gap 3 molar conc 10 mmol/L Normal 7-13 [facility] Calcium mass conc 9.3 mg/dL Normal 8.6-10.2 [facility] Chloride molar conc 106 mmol/L Normal 98-107 [facility] CO2 molar conc 26 mmol/L Normal 22-29 [facility] Creatinine mass conc 0.93 mg/dL Critically high 0.50-0.90 [facility] GFR/1.73 sq M predicted among blacks MDRD vol rate/area (S/P/Bld) mL/min/{1.73_m2} Normal >60 [facility] Comment on above: Result Comment: >60 mL/min/1.73m2 EGFR, calc. for ages 18 and older using theMDRD formula (not corrected for weight), is valid for stablerenal function. GFR/1.73 sq M.predicted MDRD vol rate/area mL/min/{1.73_m2} Normal >60 [facility] Comment on above: Result Comment: >60 mL/min/1.73m2 EGFR, calc. for ages 18 and older using theMDRD formula (not corrected for weight), is valid for stablerenal function. Glucose mass conc 103 mg/dL Normal 74-109 [facility] Potassium molar conc 4.5 mmol/L Normal 3.5-5.1 [facility] Sodium molar conc 142 mmol/L Normal 132-144 [facility] Urea nitrogen mass conc 17 mg/dL Normal 6-20 [facility] CBC With Platelet and Differ entialon 01-11-2018 Anisocytosis Auto Ql (Bld) PRESENT Normal [facility] Erythrocyte distribution width Auto Ratio (RBC) 23.8 % Critically high 11.5-14.5 [facility] Hematocrit Auto Volume Fraction (Bld) 25.6 % Low 37.0-47.0 [facility] Hemoglobin mass conc (Bld) 8.4 g/dL Low 12.0-16.0 [facility] Hypochromia PRESENT Normal [facility] MCH Auto Entitic mass (RBC) 26.5 pg Low 27.0-31.3 [facility] MCHC Auto mass conc (RBC) 32.8 % Low 33.0-37.0 [facility] MCV Auto Entitic volume (RBC) 80.9 fL Low 82.0-100.0 [facility] Platelets Auto #/vol (Bld) 259 10*3/uL Normal 130-400 [facility] RBC Auto #/vol (Bld) 3.16 10*6/uL Low 4.20-5.40 [facility] Basophils Auto #/vol (Bld) 0.1 10*3/uL Normal 0.0-0.2 [facility] Basophils/100 WBC Auto (Bld) 1.5 % Normal [facility] Eosinophils Auto #/vol (Bld) 0.2 10*3/uL Normal 0.0-0.7 [facility] Eosinophils/100 WBC Auto (Bld) 4.2 % Normal [facility] Lymphocytes Auto #/vol (Bld) 1.9 10*3/uL Normal 1.0-4.8 [facility] Lymphocytes/100 WBC Auto (Bld) 40.0 % Normal [facility] Monocytes Auto #/vol (Bld) 0.1 10*3/uL Low 0.2-0.8 [facility] Monocytes/100 WBC Auto (Bld) 3.1 % Normal [facility] Neutrophils Auto #/vol (Bld) 2.4 10*3/uL Normal 1.4-6.5 [facility] Neutrophils/100 WBC Auto (Bld) 51.2 % Normal [facility] WBC Auto #/vol (Bld) 4.6 10*3/uL Low 4.8-10.8 [facility] Culture, [place] 01-08-2018 Preliminary SEE NOTE Normal [facility] Comment on above: Order Comment: CALL [facility] LC1W tel. [phone], called hgb to ramila oseguera rn on 1w by scbHematology results called to and read back by ramila oseguera on 1w, 12/27/201706:44, by RAYSHAWN Result Comment: No Nathan rojas, culture still in progress.Performed by [facility],[address] [place] [id number] skm.[employer], Artur Agustin MD - Lab. Director CBC With Platelet and Differ entialon 01-04-2018 Anisocytosis Auto Ql (Bld) 2+ Normal [facility] Bands 2 % Low 5-11 [facility] Basophils Auto #/vol (Bld) 0.1 10*3/uL Normal 0.0-0.2 [facility] Basophils/100 WBC Auto (Bld) 1.0 % Normal [facility] Eosinophils Auto #/vol (Bld) 0.2 10*3/uL Normal 0.0-0.7 [facility] Eosinophils/100 WBC Auto (Bld) 2.0 % Normal [facility] Lymphocytes Auto #/vol (Bld) 0.7 10*3/uL Low 1.0-4.8 [facility] Lymphocytes/100 WBC Auto (Bld) 9.0 % Normal [facility] Macrocytic 1+ Normal [facility] Microcytic 1+ Normal [facility] Monocytes Auto #/vol (Bld) 0.0 10*3/uL Low 0.2-0.8 [facility] Monocytes/100 WBC Auto (Bld) 4.4 % Normal [facility] Neutrophils Auto #/vol (Bld) 6.8 10*3/uL Critically high 1.4-6.5 [facility] Neutrophils/100 WBC Auto (Bld) 86.0 % Normal [facility] Ovalocytes 1+ Normal [facility] Platelet Slide Review Normal Normal [facility] Poikilocytosis 2+ Normal [facility] Tear Drop Cells 1+ Normal [facility] Erythrocyte distribution width Auto Ratio (RBC) 20.4 % Critically high 11.5-14.5 [facility] Hematocrit Auto Volume Fraction (Bld) 22.7 % Low 37.0-47.0 [facility] Hemoglobin mass conc (Bld) 7.4 g/dL Low 12.0-16.0 [facility] MCH Auto Entitic mass (RBC) 26.3 pg Low 27.0-31.3 [facility] MCHC Auto mass conc (RBC) 32.5 % Low 33.0-37.0 [facility] MCV Auto Entitic volume (RBC) 80.8 fL Low 82.0-100.0 [facility] Platelets Auto #/vol (Bld) 234 10*3/uL Normal 130-400 [facility] RBC Auto #/vol (Bld) 2.81 10*6/uL Low 4.20-5.40 [facility] WBC Auto #/vol (Bld) 7.7 10*3/uL Normal 4.8-10.8 [facility] Respiratory Virus Panel by Bret Solis 01-04-2018 Adenovirus B/E - PCR Not Detected Normal [facility] Adenovirus C - PCR Not Detected Normal [facility] Comment on above: Result Comment: The specimen submitted for testing did not meet ARUPsubmission guidelines. Testing was performed on a specimenthat did not meet validated type requirements.Performance characteristics of this assay may be affected.Interpret results with caution. Please refer to the [employer] Test Directory for information on specimenacceptability:[email or web address].Test developed and characteristics determined by [facility]. See Compliance Statement B: [employer]/CS.Performed by [facility],[address] [place] [id number] gxy.[employer], Artur Agustin MD - Lab. Director Human Metapneumovirus - PCR Not Detected Normal [facility] Human Rhinovirus - PCR Not Detected Normal [facility] Influenza A - PCR Not Detected Normal [facility] Influenza A 2009 H1N1 - PCR Not Detected Normal [facility] Influenza A H1 - PCR Not Detected Normal [facility] Influenza A H3 - PCR Not Detected Normal [facility] Influenza B - PCR Not Detected Normal [facility] Parainfluenza Virus 1 - PCR Not Detected Normal [facility] Parainfluenza Virus 2 - PCR Not Detected Normal [facility] Parainfluenza Virus 3 - PCR Not Detected Normal [facility] Respiratory Syncytial Virus A - PCR Not Detected Normal [facility] Respiratory Syncytial Virus B - PCR Not Detected Normal [facility] RVP Source Bronch Wash RUL Normal [facility] CBC With Platelet and Differ entialon 01-02-2018 Basophils Auto #/vol (Bld) 0.1 10*3/uL Normal 0.0-0.2 [facility] Basophils/100 WBC Auto (Bld) 0.8 % Normal [facility] Eosinophils Auto #/vol (Bld) 0.1 10*3/uL Normal 0.0-0.7 [facility] Eosinophils/100 WBC Auto (Bld) 1.6 % Normal [facility] Erythrocyte distribution width Auto Ratio (RBC) 19.9 % Critically high 11.5-14.5 [facility] Hematocrit Auto Volume Fraction (Bld) 22.0 % Low 37.0-47.0 [facility] Hemoglobin mass conc (Bld) 7.3 g/dL Low 12.0-16.0 [facility] Lymphocytes Auto #/vol (Bld) 1.2 10*3/uL Normal 1.0-4.8 [facility] Lymphocytes/100 WBC Auto (Bld) 19.0 % Normal [facility] MCH Auto Entitic mass (RBC) 26.8 pg Low 27.0-31.3 [facility] MCHC Auto mass conc (RBC) 33.4 % Normal 33.0-37.0 [facility] MCV Auto Entitic volume (RBC) 80.4 fL Low 82.0-100.0 [facility] Monocytes Auto #/vol (Bld) 0.3 10*3/uL Normal 0.2-0.8 [facility] Monocytes/100 WBC Auto (Bld) 4.9 % Normal [facility] Neutrophils Auto #/vol (Bld) 4.8 10*3/uL Normal 1.4-6.5 [facility] Neutrophils/100 WBC Auto (Bld) 73.7 % Normal [facility] Platelets Auto #/vol (Bld) 248 10*3/uL Normal 130-400 [facility] RBC Auto #/vol (Bld) 2.74 10*6/uL Low 4.20-5.40 [facility] WBC Auto #/vol (Bld) 6.5 10*3/uL Normal 4.8-10.8 [facility] Rejection Notificationon Rejected Test FOB Normal [facility] Rejected Test FOB Normal [facility] AFB Culture with Stainon Preliminary SEE NOTE Normal [facility] Comment on above: Order Comment: Bronc h wash RULBronch Wash RUL Result Comment: Spec imen received and in progress.Positive culture results are called as soon as detected.Final report to follow in seven to eight weeksPerformed by [facility],[address] [place] [address],[place] [id number] gio.[employer], Artur Agustin MD - Lab. Director Preliminary SEE NOTE Normal [facility] Comment on above: Order Comment: CALL [facility] 1 tel. [phone], called hgb to ramila june rn on 1w by scbHematology results called to and read back by ramila june on 1w, 12/27/201706:44, by BONSA Result Comment: Spec ashley received and in progress.Positive culture results are called as soon as detected.Final report to follow in seven to eight weeksPerformed by [facility],[address] [place] [address],[place] [address] uax.[employer], Artur Agustin MD - Lab. Director CBC With Platelet and Differ entialon 01-01-2018 Basophils Auto #/vol (Bld) 0.0 10*3/uL Normal 0.0-0.2 [facility] Comment on above: Order Comment: CALL [facility] tel. [phone], called hgb to ramila june rn on 1w by scbHematology results called to and read back by ramila oseguera on 1w, 12/27/201706:44, by BONSA Basophils/100 WBC Auto (Bld) 0.8 % Normal [facility] Comment on above: Order Comment: CALL [facility] 1 tel. [phone], called hgb to ramila june rn on 1w by scbHematology results called to and read back by ramila oseguera on 1w, 12/27/201706:44, by BONSA Eosinophils Auto #/vol (Bld) 0.1 10*3/uL Normal 0.0-0.7 [facility] Comment on above: Order Comment: CALL [facility] 1 tel. [phone], called hgb to ramila june rn on 1w by scbHematology results called to and read back by ramila june on 1w, 12/27/201706:44, by BONSA Eosinophils/100 WBC Auto (Bld) 1.8 % Normal [facility] Comment on above: Order Comment: CALL [facility] 1W tel. [phone], called hgb to ramila oseguera rn on 1w by scbHematology results called to and read back by ramila june on 1w, 12/27/201706:44, by BONSA Erythrocyte distribution width Auto Ratio (RBC) 18.6 % Critically high 11.5-14.5 [facility] Comment on above: Order Comment: CALL [facility] tel. [phone], called hgb to ramila ana rosa rn on 1w by scbHematology results called to and read back by ramila oseguera on 1w, 12/27/201706:44, by BONSA Hematocrit Auto Volume Fraction (Bld) 20.1 % Critically low 37.0-47.0 [facility] Comment on above: Order Comment: CALL [facility] tel. [phone], called hgb to ramila oseguera rn on 1w by scbHematology results called to and read back by ramila oseguera on 1w, :44, by BONSA Hemoglobin mass conc (Bld) 6.7 g/dL Critically low 12.0-16.0 [facility] Comment on above: Order Comment: CALL [address] tel. [phone], called hgb to ramila oseguera rn on 1w by scbHematology results called to and read back by ramila oseguera on 1w, :44, by BONSA Result Comment: veri fied by repeat Lymphocytes Auto #/vol (Bld) 0.9 10*3/uL Low 1.0-4.8 [facility] Comment on above: Order Comment: CALL [address] tel. [phone], called hgb to ramila oseguera rn on 1w by scbHematology results called to and read back by ramila oseguera on 1w, :44, by BON Lymphocytes/100 WBC Auto (Bld) 18.3 % Normal [facility] Comment on above: Order Comment: CALL [facility] tel. [phone], called hgb to ramila oseguera rn on 1w by scbHematology results called to and read back by ramila oseguera on 1w, 12/27/201706:44, by BONSA MCH Auto Entitic mass (RBC) 26.5 pg Low 27.0-31.3 [facility] Comment on above: Order Comment: CALL [facility] tel. [phone], called hgb to ramila oseguera rn on 1w by scbHematology results called to and read back by ramila june on 1w, :44, by BONSA MCHC Auto mass conc (RBC) 33.1 % Normal 33.0-37.0 [facility] Comment on above: Order Comment: CALL [address] tel. [phone], called hgb to ramila oseguera rn on 1w by scbHematology results called to and read back by ramila june on 1w, :44, by BONSA MCV Auto Entitic volume (RBC) 80.0 fL Low 82.0-100.0 [facility] Comment on above: Order Comment: CALL [address] tel. [phone], called hgb to ramila oseguera rn on 1w by scbHematology results called to and read back by ramila june on 1w, :44, by BONSA Monocytes Auto #/vol (Bld) 0.3 10*3/uL Normal 0.2-0.8 [facility] Comment on above: Order Comment: CALL [address] tel. [phone], called hgb to ramila oseguera rn on 1w by scbHematology results called to and read back by ramila june on 1w, :44, by BONSA Monocytes/100 WBC Auto (Bld) 5.4 % Normal [facility] Comment on above: Order Comment: CALL [address] tel. [phone], called hgb to ramila oseguera rn on 1w by scbHematology results called to and read back by ramila june on 1w, :44, by BONSA Neutrophils Auto #/vol (Bld) 3.8 10*3/uL Normal 1.4-6.5 [facility] Comment on above: Order Comment: CALL [facility] tel. [phone], called hgb to ramila oseguera rn on 1w by scbHematology results called to and read back by ramila june on 1w, :44, by BONSA Neutrophils/100 WBC Auto (Bld) 73.7 % Normal [facility] Comment on above: Order Comment: CALL [facility] tel. [phone], called hgb to ramila oseguera rn on 1w by scbHematology results called to and read back by ramila june on 1w, 12/27/201706:44, by BONSA Platelets Auto #/vol (Bld) 174 10*3/uL Normal 130-400 [facility] Comment on above: Order Comment: CALL [facility] tel. [phone], called hgb to ramila oseguera rn on 1w by scbHematology results called to and read back by ramila june on 1w, 12/27/201706:44, by BONSA RBC Auto #/vol (Bld) 2.51 10*6/uL Low 4.20-5.40 [facility] Comment on above: Order Comment: CALL [facility] tel. [phone], called hgb to ramila oseguera rn on 1w by scbHematology results called to and read back by ramila june on 1w, 12/27/201706:44, by BONSA WBC Auto #/vol (Bld) 5.1 10*3/uL Normal 4.8-10.8 [facility] Comment on above: Order Comment: CALL [facility] tel. [phone], called hgb to ramila oseguera rn on 1w by scbHematology results called to and read back by ramila june on 1w, 12/27/201706:44, by RAYSHAWN Bacterial susceptibility fox el [facility] Bacterial susceptibility panel by Minimum inhibitory concentration (ISRA) ORDERED BY: LESLIE PENALOZA: Blood COLLECTED: 12/31/17 00:40ANTIBIOTICS AT [facility].: RECEIVED : 12/31/17 01:26CALL [facility] LC4W tel. [phone],Blood culture results called to and read back by Henri Christine, 01/01/2018 13:30, by Heavenly Geiger 2 FINAL 01/03/18 07:41 1 out of 2 blood cultures POSITIVE for Serratia marcescens S. marces ANTIBIOTICS ISRA Interp A moxicillin/Clavulanate >=32 R Cefepime <=1 S Ceftriaxone <=1 S Ciprofloxacin <=0.25 S Gentamicin <=1 S Trimethoprim/Sulfamethoxaz ole <=20 S S=SUSCEPTIBLE I=INTERMEDIATE R=RESISTANT Normal [facility] CBC With Platelet and Differ entialon 12-31-2017 Basophils Auto #/vol (Bld) 0.1 10*3/uL Normal 0.0-0.2 [facility] Comment on above: Order Comment: CALL [facility] LC1W tel. [phone], called hgb to ramila oseguera rn on 1w by scematology results called to and read back by ramila oseguera on 1w, 12/27/201706:44, by RAYSHAWN Basophils/100 WBC Auto (Bld) 0.7 % Normal [facility] Comment on above: Order Comment: CALL [facility] LC1W tel. [phone], called hgb to ramila oseguera rn on 1w by scbHematology results called to and read back by ramila june on 1w, :44, by RAYSHAWN Eosinophils Auto #/vol (Bld) 0.0 10*3/uL Normal 0.0-0.7 [facility] Comment on above: Order Comment: CALL [address] tel. [phone], called hgb to ramila june rn on 1w by scbHematology results called to and read back by ramila june on 1w, :44, by RAYSHAWN Eosinophils/100 WBC Auto (Bld) 0.4 % Normal [facility] Comment on above: Order Comment: CALL [address] tel. [phone], called hgb to ramila june rn on 1w by scbHematology results called to and read back by ramila june on 1w, :44, by RAYSHAWN Erythrocyte distribution width Auto Ratio (RBC) 19.0 % Critically high 11.5-14.5 [facility] Comment on above: Order Comment: CALL [address] tel. [phone], called hgb to ramila june rn on 1w by scbHematology results called to and read back by ramila june on 1w, :44, by RAYSHAWN Hematocrit Auto Volume Fraction (Bld) 19.7 % Critically low 37.0-47.0 [facility] Comment on above: Order Comment: CALL [address] tel. [phone], called hgb to ramila june rn on 1w by scbHematology results called to and read back by ramila june on 1w, :44, by RAYSHAWN Hemoglobin mass conc (Bld) 6.6 g/dL Critically low 12.0-16.0 [facility] Comment on above: Order Comment: CALL [address] tel. [phone], called hgb to ramila june rn on 1w by scbHematology results called to and read back by ramila june on 1w, :44, by BON Result Comment: veri fied by repeat Lymphocytes Auto #/vol (Bld) 0.8 10*3/uL Low 1.0-4.8 [facility] Comment on above: Order Comment: CALL [place] tel. [phone], called hgb to ramila oseguera rn on 1w by scbHematology results called to and read back by ramila june on 1w, :44, by BONSA Lymphocytes/100 WBC Auto (Bld) 9.0 % Normal [facility] Comment on above: Order Comment: CALL [place] [facility] tel. [phone], called hgb to ramila oseguera rn on 1w by scbHematology results called to and read back by ramila june on 1w, :44, by BONSA MCH Auto Entitic mass (RBC) 26.7 pg Low 27.0-31.3 [facility] Comment on above: Order Comment: CALL [address] tel. [phone], called hgb to ramila oseguera rn on 1w by scbHematology results called to and read back by ramila june on 1w, :44, by BONSA MCHC Auto mass conc (RBC) 33.3 % Normal 33.0-37.0 [facility] Comment on above: Order Comment: CALL [address] tel. [phone], called hgb to ramila oseguera rn on 1w by scbHematology results called to and read back by ramila oseguera on 1w, :44, by BONSA MCV Auto Entitic volume (RBC) 80.1 fL Low 82.0-100.0 [facility] Comment on above: Order Comment: CALL [place] [facility] tel. [phone], called hgb to ramila oseguera rn on 1w by scbHematology results called to and read back by ramila june on 1w, :44, by BONSA Monocytes Auto #/vol (Bld) 0.5 10*3/uL Normal 0.2-0.8 [facility] Comment on above: Order Comment: CALL [place] [facility] tel. [phone], called hgb to ramila oseguera rn on 1w by scbHematology results called to and read back by ramila june on 1w, :44, by BONSA Monocytes/100 WBC Auto (Bld) 5.4 % Normal [facility] Comment on above: Order Comment: CALL [place] 1 tel. [phone], called hgb to ramila oseguera rn on 1w by scbHematology results called to and read back by ramila june on 1w, 12/27/201706:44, by BONSA Neutrophils Auto #/vol (Bld) 7.1 10*3/uL Critically high 1.4-6.5 [facility] Comment on above: Order Comment: CALL [place] [facility] tel. [phone], called hgb to ramila oseguera rn on 1w by scbHematology results called to and read back by ramila june on 1w, :44, by BONSA Neutrophils/100 WBC Auto (Bld) 84.5 % Normal [facility] Comment on above: Order Comment: CALL [place] [facility] tel. [phone], called hgb to ramila oseguera rn on 1w by scbHematology results called to and read back by ramila june on 1w, :44, by BONSA Platelets Auto #/vol (Bld) 195 10*3/uL Normal 130-400 [facility] Comment on above: Order Comment: CALL [place] 1 tel. [phone], called hgb to ramila oseguera rn on 1w by scbHematology results called to and read back by ramila june on 1w, :44, by BONSA RBC Auto #/vol (Bld) 2.46 10*6/uL Low 4.20-5.40 [facility] Comment on above: Order Comment: CALL [facility] 1W tel. [phone], called hgb to ramila oseguera rn on 1w by scbHematology results called to and read back by ramila june on 1w, :44, by BONSA WBC Auto #/vol (Bld) 8.4 10*3/uL Normal 4.8-10.8 [facility] Comment on above: Order Comment: CALL [facility] 1W tel. [phone], called hgb to ramila oseguera rn on 1w by scbHematology results called to and read back by ramila oseguera on 1w, 12/27/201706:44, by RAYSHAWN Culture, Blood 2on 8 Culture, Blood 2 OR DERED BY: LESLIE PENALOZA: Blood COLLECTED: 12/31/17 00:40ANTIBIOTICS AT [facility].: RECEIVED : 12/31/17 01:26CALL [facility] LC4W tel. [phone],Blood culture results called to and read back by Henri Christine, 01/01/2018 13:30, by MICRECulture, Blood 2 INTERIM 01/02/18 08:16 Gram stain aerobic bottle Gram negative rods 1 out of 2 blood cultures Further results to follow POSITIVE for Gram negative arminda ID and sensitivity to follow Normal [facility] IR FLUORO GUIDED CVA DEVICE [...] sheath was placed over the guidewire. A 4-[place] 44 cm single lumen PICC was advanced [...] seconds.IMPRESSION: SUCCESSFUL PICC PLACEMENT WITHOUT IMMEDIATE COMPLICATIONS.Interpreted by:Lucas Santamaria by:Gordon Hinton MD01/10/18inal result [facility] IR PICC WO SQ PORT/PUMP [...] sheath was placed over the guidewire. A 4-[place] 44 cm single lumen PICC was advanced [...] by:FRANCO Santamariaigned by:Gordon Hinton MD01/10/18inal result Normal [facility] IR ULTRASOUND GUIDANCE VASCU LAR [...] sheath was placed over the guidewire. A 4-[place] 44 cm single lumen PICC was advanced [...] by:FRANCO Santamariaigned by:Gordon Hinton MD01/10/18inal result Normal [facility] Basic Metabolic Panel Reflex Mgon 12-30-2017 Calcium mass conc 8.4 mg/dL Low 8.6-10.2 [facility] Chloride molar conc 107 mmol/L Normal 98-107 [facility] CO2 molar conc 24 mmol/L Normal 22-29 [facility] Creatinine mass conc 0.73 mg/dL Normal 0.50-0.90 [facility] GFR/1.73 sq M predicted among blacks MDRD vol rate/area (S/P/Bld) mL/min/{1.73_m2} Normal >60 [facility] Comment on above: Result Comment: >60 mL/min/1.73m2 EGFR, calc. for ages 18 and older using theMDRD formula (not corrected for weight), is valid for stablerenal function. GFR/1.73 sq M.predicted MDRD vol rate/area mL/min/{1.73_m2} Normal >60 [facility] Comment on above: Result Comment: >60 mL/min/1.73m2 EGFR, calc. for ages 18 and older using theMDRD formula (not corrected for weight), is valid for stablerenal function. Glucose mass conc 82 mg/dL Normal 74-109 [facility] Potassium reflex Mg 4.8 mEq/L Normal 3.5-5.1 [facility] Sodium molar conc 140 mmol/L Normal 132-144 [facility] Urea nitrogen mass conc 8 mg/dL Normal 6-20 [facility] Anion gap 3 molar conc 9 mmol/L Normal 7-13 [facility] Body Fluid Cell Counton 12-16 Atypical Lymphs 3 % Normal [facility] Eosinophils/100 WBC Auto (Bld) 1 % Normal [facility] Lymphocytes/100 WBC Auto (Bld) 8 % Normal [facility] Mesothelials 50 % Normal [facility] Monocytes/100 WBC Auto (Bld) 20 % Normal [facility] Neutrophils/100 WBC Auto (Bld) 18 % Normal [facility] CBC With Platelet and Differ entialon 12-30-2017 Basophils Auto #/vol (Bld) 0.0 10*3/uL Normal 0.0-0.2 [facility] Comment on above: Order Comment: CALL Murdock LC4W tel. [phone],h and h results called to and read back by es perdomo on 4w / scb,12/30/2017 09:51, by RAYSHAWN Basophils/100 WBC Auto (Bld) 1.0 % Normal [facility] Comment on above: Order Comment: CALL Murdock LC4W tel. [phone],h and h results called to and read back by es perdomo on 4w / scb,12/30/2017 09:51, by BONSA Eosinophils Auto #/vol (Bld) 0.1 10*3/uL Normal 0.0-0.7 [facility] Comment on above: Order Comment: CALL Murdock LC4W tel. [phone],h and h results called to and read back by es perdomo on 4w / scb,12/30/2017 09:51, by BON Eosinophils/100 WBC Auto (Bld) 1.8 % Normal [facility] Comment on above: Order Comment: CALL Murdock LC4W tel. [phone],h and h results called to and read back by es perdomo on 4w / scb,12/30/2017 09:51, by BONSA Erythrocyte distribution width Auto Ratio (RBC) 18.8 % Critically high 11.5-14.5 [facility] Comment on above: Order Comment: CALL Murdock LC4W tel. [phone],h and h results called to and read back by es perdomo on 4w / scb,12/30/2017 09:51, by BONSA Hematocrit Auto Volume Fraction (Bld) 20.8 % Critically low 37.0-47.0 [facility] Comment on above: Order Comment: CALL Murdock LC4W tel. [phone],h and h results called to and read back by es perdomo on 4w / scb,12/30/2017 09:51, by BONSA Hemoglobin mass conc (Bld) 7.0 g/dL Critically low 12.0-16.0 [facility] Comment on above: Order Comment: CALL Murdock LC4W tel. [phone],h and h results called to and read back by es perdomo on 4w / scb,12/30/2017 09:51, by BONSA Lymphocytes Auto #/vol (Bld) 1.0 10*3/uL Normal 1.0-4.8 [facility] Comment on above: Order Comment: CALL Murdock LC4W tel. [phone],h and h results called to and read back by es perdomo on 4w / scb,12/30/2017 09:51, by BONSA Lymphocytes/100 WBC Auto (Bld) 20.2 % Normal [facility] Comment on above: Order Comment: CALL Murdock LC4W tel. [phone],h and h results called to and read back by es perdomo on 4w / scb,12/30/2017 09:51, by BONSA MCH Auto Entitic mass (RBC) 26.8 pg Low 27.0-31.3 [facility] Comment on above: Order Comment: CALL Murdock LC4W tel. [phone],h and h results called to and read back by es perdomo on 4w / scb,12/30/2017 09:51, by BONSA MCHC Auto mass conc (RBC) 33.9 % Normal 33.0-37.0 [facility] Comment on above: Order Comment: CALL Murdock LC4W tel. [phone],h and h results called to and read back by es perdomo on 4w / scb,12/30/2017 09:51, by BONSA MCV Auto Entitic volume (RBC) 79.1 fL Low 82.0-100.0 [facility] Comment on above: Order Comment: CALL Murdock LC4W tel. [phone],h and h results called to and read back by es perdomo on 4w / scb,12/30/2017 09:51, by BONSA Monocytes Auto #/vol (Bld) 0.2 10*3/uL Normal 0.2-0.8 [facility] Comment on above: Order Comment: CALL Murdock LC4W tel. [phone],h and h results called to and read back by es perdomo on 4w / scb,12/30/2017 09:51, by BONSA Monocytes/100 WBC Auto (Bld) 4.8 % Normal [facility] Comment on above: Order Comment: CALL Murdock LC4W tel. [phone],h and h results called to and read back by es perdomo on 4w / scb,12/30/2017 09:51, by BONSA Neutrophils Auto #/vol (Bld) 3.7 10*3/uL Normal 1.4-6.5 [facility] Comment on above: Order Comment: CALL Murdock LC4W tel. [phone],h and h results called to and read back by es perdomo on 4w / scb,12/30/2017 09:51, by BONSA Neutrophils/100 WBC Auto (Bld) 72.2 % Normal [facility] Comment on above: Order Comment: CALL Murdock LC4W tel. [phone],h and h results called to and read back by es perdomo on 4w / scb,12/30/2017 09:51, by BONSA Platelets Auto #/vol (Bld) 231 10*3/uL Normal 130-400 [facility] Comment on above: Order Comment: CALL Murdock LC4W tel. [phone],h and h results called to and read back by es perdomo on 4w / scb,12/30/2017 09:51, by RAYSHAWN RBC Auto #/vol (Bld) 2.62 10*6/uL Low 4.20-5.40 [facility] Comment on above: Order Comment: CALL Murdock LC4W tel. [phone],h and h results called to and read back by es perdomo on 4w / scb,12/30/2017 09:51, by RAYSHAWN WBC Auto #/vol (Bld) 5.1 10*3/uL Normal 4.8-10.8 [facility] Comment on above: Order Comment: CALL Murdock LC4W tel. [phone],h and h results called to and read back by es perdomo on 4w / scb,12/30/2017 09:51, by RAYSHAWN CT SINUS WO CONTRASTon 12-30 CT SINUS [...] by:FRANCO Mcmanusigned by:Huan Funes MD12/30/17inal result Normal [facility] [place] Miscellaneous test 1on 12-29-2017 Miscellaneous Test 1 SEE NOTE Normal [facility] Comment on above: Order Comment: Colle ction has been rescheduled by VIVIEN at 12/26/2017 14:59. Reason:patient refusing until she gets pain meds Result Comment: Test name Result Flag Units RefIntvl HIV-1,2 Combo Antigen/Antibody Negative NegativeThe specimen was non-reactive for HIV-1 and HIV-2 antibodies, and [id number]. Based on this non-reactive screen result, further reflexivetestingwas not indicated and was, therefore, not performedINTERPRETIVE INFORMATION: HIV-1,2 Combo Ag/Ab EIA w/ReflexThis assay should not be used for blood donor screening, associatedre-entryprotocols, or for screening Human Cell, Tissues and Cellular andTissue-BasedProducts (HCT/P).Performed by [employer],[address] [place] [id number] ycr.[employer], Artur Agustin MD - Lab. Director Protein mass conc 2247629 g/dL Normal [facility] Comment on above: Order Comment: Terri gonzales has been rescheduled by VIVIEN at 12/26/2017 14:59. Reason:patient refusing until she gets pain meds Bacterial susceptibility fox el [facility] Bacterial susceptibility panel by Minimum inhibitory concentration (ISRA) ORDERED BY: YOLANDA POWELL: Bronchial Washing Right Upper Lobe COLLECTED: 12/29/17 15:09ANTIBIOTICS AT RADHA.: RECEIVED : 12/29/17 15:37 Supplemental ReportCALL Murdock LC4W tel. [phone],MRSA results called to and read back by [...] Vancomycin <=0.5 S S=SUSCEPTIBLE I=INTERMEDIATE R=RESISTANT Normal [facility] Bacterial susceptibility panel by Minimum inhibitory concentration (ISRA) ORDERED BY: YOLANDA POWELL: Bronchial Washing Body Fluid COLLECTED: 12/29/17 14:43ANTIBIOTICS AT RADHA.: RECEIVED : 12/29/17 15:42CALL Murdock LC4W tel. [phone],MRSAresults called to and read back by Nanci, 01/01/2018 12:22, by ROGLYGram Stain Direct FINAL 12/30/17 10:59 Few WBC's Few epithelial cells Few Mixed Respiratory FloraCulture, Respiratory FINAL 01/01/18 12:22 Light growth Enterobacter cloacae complex Rare growth Serratia marcescens Refer to previous sensitivity Heavy growth Staph aureus MRSA CONTACT PRECAUTIONS INDICATED PBP2= POSITIVE Previous value was 03 Staph aureus MSSA, verified by ROGLY at 13:15 on 12/31/17 Light growth Yeast No further workup E. cloacae complex ANTIBIOTICS ISRA Interp A moxicillin/Clavulanate >=32 R Cefazolin >=64 R Ceftriaxone <=1 S Ciprofloxacin <=0.25 S Gentamicin <=1 S Trimethoprim/Sulfamethoxaz ole <=20 S S=SUSCEPTIBLE I=INTERMEDIATE R=RESISTANT [facility] Body Fluid Cell Counton 11-1 Appearance Nom (U) Hazy [facility] Clot Check see below [facility] Comment on above: Result Comment: No C lots Seen Color Nom (U) Colorless Normal [facility] Fluid Source Pleural Normal [facility] Total Nucleated Cells 341 /cumm Normal [facility] Total Red Blood Cells 2888 /cumm Normal [facility] Total Cells Counted for Diff 100 Normal [facility] CBC With Platelet No Aden chapman 12-29-2017 Erythrocyte distribution width Auto Ratio (RBC) 18.5 % Critically high 11.5-14.5 [facility] Comment on above: Order Comment: Terri gonzales has been rescheduled by SAUDE at 12/26/2017 14:59. Reason:patient refusing until she gets pain meds Hematocrit Auto Volume Fraction (Bld) 18.5 % Critically low 37.0-47.0 [facility] Comment on above: Order Comment: Terri gonzales has been rescheduled by SAUDE at 12/26/2017 14:59. Reason:patient refusing until she gets pain meds Hemoglobin mass conc (Bld) 6.2 g/dL Critically low 12.0-16.0 [facility] Comment on above: Order Comment: Terri gonzales has been rescheduled by SAUDE at 12/26/2017 14:59. Reason:patient refusing until she gets pain meds MCH Auto Entitic mass (RBC) 26.6 pg Low 27.0-31.3 [facility] Comment on above: Order Comment: Terri gonzales has been rescheduled by SAUDE at 12/26/2017 14:59. Reason:patient refusing until she gets pain meds MCHC Auto mass conc (RBC) 33.6 % Normal 33.0-37.0 [facility] Comment on above: Order Comment: Terri gonzales has been rescheduled by SAUDE at 12/26/2017 14:59. Reason:patient refusing until she gets pain meds MCV Auto Entitic volume (RBC) 79.0 fL Low 82.0-100.0 [facility] Comment on above: Order Comment: Terri gonzales has been rescheduled by SAUDE at 12/26/2017 14:59. Reason:patient refusing until she gets pain meds Platelets Auto #/vol (Bld) 173 10*3/uL Normal 130-400 [facility] Comment on above: Order Comment: Terri gonzales has been rescheduled by SAUDE at 12/26/2017 14:59. Reason:patient refusing until she gets pain meds RBC Auto #/vol (Bld) 2.34 10*6/uL Low 4.20-5.40 [facility] Comment on above: Order Comment: Terri gonzales has been rescheduled by SAUDE at 12/26/2017 14:59. Reason:patient refusing until she gets pain meds WBC Auto #/vol (Bld) 3.5 10*3/uL Low 4.8-10.8 [facility] Comment on above: Order Comment: Terri gonzales has been rescheduled by SAUDE at 12/26/2017 14:59. Reason:patient refusing until she gets pain meds CONSULTATIONon 12-29-[address] [place] [address] CONSULTATIONPATIENT NAME: ALESHA KENNEY : 1985MED REC NO: [id number] ROOM:ACCOUNT NO: [id number] ADMIT DATE: 12/25/2017PROVIDER: Ayana Carbone, [facility] [place] DATE: 12/29/2017Consultation from Dr. Dominga Powell.REASON FOR CONSULTATION: ENT evaluation for possible epistaxis [...] the sinuses for further evaluation.Thank you Dr. Powell for this consult.AYANA CARBONE, MDD: 12/29/2017 18:06:42 [id number]#: [id number] Doc#: [id number]: MD Dominga Rai MD [facility] Culture, Respiratoryon 12-29 Culture, Respiratory ORDERED BY: YOLANDA POWELL: Bronchial Washing Left Lower Lobe COLLECTED: 12/29/17 15:11ANTIBIOTICS AT RADHA.: RECEIVED : 12/29/17 15:41CALL Murdock LC4W tel. [phone],MRSA results called to and read back by Nanci, 01/01/2018 12:23, by KEVGram Stain Direct FINAL 12/30/17 10:54 Moderate WBC's, No organisms seenCulture, Respiratory FINAL 01/01/18 12:24 Light growth Staph aureus MRSA CONTACT PRECAUTIONS INDICATED PBP2= POSITIVE Previous value was 01 Staph aureus MSSA, verified by KEV at 13:14 on 12/31/17 Normal [facility] Culture, Respiratory ORDERED BY: YOLANDA POWELL: Bronchial Washing Right Upper Lobe COLLECTED: 12/29/17 [...] Gram negative arminda ID to follow Normal [facility] Culture, Respiratory ORDERED BY: YOLANDA POWELL: Bronchial Washing Body Fluid COLLECTED: 12/29/17 14:43ANTIBIOTICS AT RADHA.: RECEIVED : 12/29/17 15:42Gram Stain Direct FINAL 12/30/17 10:59 Few WBC's Few epithelial cells Few Mixed Respiratory FloraCulture, Respiratory INTERIM 12/31/17 13:15 Light growth Gram negative arminda ID and sensitivity to follow Rare growth Serratia marcescens Refer to previous sensitivity Heavy growth Staph aureus MSSA Normal [facility] Cytology Medical Specimenon 12-29-2017 Cytology Medical Specimen Invalid Interpretation Code [facility] Comment on above: Result Comment: [facility] [address] [place] [address] FINAL CYTOLOGY REPORTPatient Name: ALESHA KENNEY Accession No: [id number] Age Sex: 1985 32 Y/ F Location: [id number] No: [id number] Collected: 12/29/2017Med Rec No: [id number] Received: 12/30/2017Attend Phys: NEENA DUPONT Completed 01/03/2018Perform Phys: DOMINGA POWELLINTERPRETATION/RESULTS:A. RIGHT UPPER LOBE BAL-MONOLAYER AND CELL BLOCK-DEGENERATED BRONCHIAL EPITHELIAL CELLS SQUAMOUS CELLS AND WBCS.B. RIGHT UPPER LOBE BRUSHING-MONOLAYER AND CELL BLOCK-A FEW BRONCHIAL CELLS, WITH REACTIVE TYPE ATYPIA.ADEQUACY:Adequate for evaluation.CATEGORIZATION:Negative for malignancy.SPECIMEN:A. Right Upper Lobe BALGROSS DESCRIPTION: 20 ml fixed1 monolayer1 cell blockhx Not givenB. Right Upper Lobe BrushingGROSS DESCRIPTION: 40 ml fixed1 monolayer1 cell blockhx Not givenCPT: 52238 X2 39017 X2 Screened by: Irasema CAZARES M.D. 01/03/2018 [...] RUL. Additional information please refer to Dr. Powell's intraoperative procedural note. (Number of films: 5 and fluoroscopy time: 52.6 seconds)IMPRESSION: CONED-DOWN AP FILMS OF THE CHEST OBTAINED DURING BRONCHOSCOPY PROCEDURE.Interpreted by:FRANCO Mittaligned by:Keith Durham MD12/29/17inal result Normal [facility] HCV by Quant NAATon 12-30-19 18 HCV Qnt by NAAT IU/mL Not Detected Normal [facility] Comment on above: Order Comment: Terri gonazles has been rescheduled by SAUDE at 12/26/2017 14:59. Reason:patient refusing until she gets pain meds HCV Qnt by NAAT log IU/mL Not Detected Normal [facility] Comment on above: Order Comment: Terri gonzales has been rescheduled by SAUDE at 12/26/2017 14:59. Reason:patient refusing until she gets pain meds Prothrombin Timeon 8 INR Coag RelTime (PPP) 1.1 {INR} Normal [facility] Comment on above: Result Comment: [...] Coag time (PPP) 11.4 s Normal 9.6-12.3 [facility] Quantiferon-TB Gold Plus, 1- Tubeon 12-29-2017 Quantiferon Mitogen minus NIL 0.52 IU/mL Normal [facility] Comment on above: Order Comment: Terri gonzales has been rescheduled by SAUDE at 12/26/2017 14:59. Reason:patient refusing until she gets pain meds Quantiferon NIL 0.05 IU/mL Normal [facility] Comment on above: Order Comment: Terri gonzales has been rescheduled by SAUDE at 12/26/2017 14:59. Reason:patient refusing until she gets pain meds Result Comment: Perf ormed by [employer],[address] [place] [address] awc.[employer], Artur Agustin MD - Lab. Director Quantiferon PlusTB1 minus NIL 0.00 IU/mL Normal 0.00-0.34 [facility] Comment on above: Order Comment: Terri gonzales has been rescheduled by SAUDE at 12/26/2017 14:59. Reason:patient refusing until she gets pain meds Quantiferon PlusTB2 minus NIL 0.00 IU/mL Normal 0.00-0.34 [facility] Comment on above: Order Comment: Terri gonzales has been rescheduled by SAUDE at 12/26/2017 14:59. Reason:patient refusing until she gets pain meds Quantiferon TB Gold Plus Negative Normal Negative [facility] Comment on above: Order Comment: [...] CD4+ lymphocyte reactivity, specifically stimulated by the TQ8jspkfida. The TB2-NIL tube detects both CD4+ and CD8+ lymphocytereactivity,stimulated by TB2 antigens. An overall Negative result does notcompletelyrule out TB infection.A false-positive result in the absence of other clinical evidence of TBinfection is not uncommon. Refer to: Updated Guidelines for UsingInterferonGamma Release Assays to Detect Mycobacterium tuberculosis Infection ---[place], 2010(http://www.cdc.gov/mmwr/preview/mmwrhtml/je6572o7.htm),for more information concerning test performance in low-prevalencepopulations and use in occupational screening. CBC With Platelet No Differe ntialon 12-28-2017 Erythrocyte distribution width Auto Ratio (RBC) 18.9 % Critically high 11.5-14.5 [facility] Comment on above: Order Comment: Terri gonzales has been rescheduled by SAUDE at 12/26/2017 14:59. Reason:patient refusing until she gets pain meds Hematocrit Auto Volume Fraction (Bld) 21.0 % Critically low 37.0-47.0 [facility] Comment on above: Order Comment: Terri gonzales has been rescheduled by SAUDE at 12/26/2017 14:59. Reason:patient refusing until she gets pain meds Hemoglobin mass conc (Bld) 6.8 g/dL Critically low 12.0-16.0 [facility] Comment on above: Order Comment: Terri gonzales has been rescheduled by SAUDE at 12/26/2017 14:59. Reason:patient refusing until she gets pain meds Result Comment: call ed h and h to lavinia chacon on 1w MCH Auto Entitic mass (RBC) 26.0 pg Low 27.0-31.3 [facility] Comment on above: Order Comment: Terri gonzales has been rescheduled by SAUDE at 12/26/2017 14:59. Reason:patient refusing until she gets pain meds MCHC Auto mass conc (RBC) 32.6 % Low 33.0-37.0 [facility] Comment on above: Order Comment: Terri gonzlaes has been rescheduled by SAUDE at 12/26/2017 14:59. Reason:patient refusing until she gets pain meds MCV Auto Entitic volume (RBC) 79.9 fL Low 82.0-100.0 [facility] Comment on above: Order Comment: Terri gonzales has been rescheduled by SAUDE at 12/26/2017 14:59. Reason:patient refusing until she gets pain meds Platelets Auto #/vol (Bld) 147 10*3/uL Normal 130-400 [facility] Comment on above: Order Comment: Terri gnozales has been rescheduled by SAUDE at 12/26/2017 14:59. Reason:patient refusing until she gets pain meds RBC Auto #/vol (Bld) 2.63 10*6/uL Low 4.20-5.40 [facility] Comment on above: Order Comment: Terri gonzales has been rescheduled by SAUDE at 12/26/2017 14:59. Reason:patient refusing until she gets pain meds WBC Auto #/vol (Bld) 4.2 10*3/uL Low 4.8-10.8 [facility] Comment on above: Order Comment: Terri gonzales has been rescheduled by SAUDE at 12/26/2017 14:59. Reason:patient refusing until she gets pain meds Hepatitis B Core Abs, Totalo n 12-28-2017 Hepatitis B Core Abs, Total Positive Abnormal Negative [facility] Comment on above: Order Comment: [...] Tissues and Cellular andTissue-Based Products (HCT/P).Performed by [employer],[address] [facility] [place] [address] pup.[employer], Artur Agustin MD - Lab. Director Transferrinon 12-28-2017 Transferrin mass conc 135 mg/dL Low 200-400 [facility] Comment on above: Order Comment: Terri gonzales has been rescheduled by SAUDE at 12/26/2017 14:59. Reason:patient refusing until she gets pain meds Result Comment: Perf ormed by [employer],[address], [facility] [place] [address] sqd.[employer], Artur Agustin MD - Lab. Director XR [...] Montoya, DOSigned by:Chandrakant Montoya, DO12/28/18Final result Normal [facility] CBC With Platelet and Differ entialon 12-27-2017 Anisocytosis Auto Ql (Bld) 2+ Normal [facility] Comment on above: Order Comment: CALL Murdock 1W tel. [phone], called hgb to ramila oseguera rn on 1w by scbHematology results called to and read back by ramila oseguera on 1w, 12/27/201706:44, by BON Hypochromia 1+ Normal [facility] Comment on above: Order Comment: CALL Murdock 1W tel. [phone], called hgb to ramila oseguera rn on 1w by scbHematology results called to and read back by ramila oseguera on 1w, 12/27/201706:44, by BONSA Lymphocytes Auto #/vol (Bld) 0.8 10*3/uL Low 1.0-4.8 [facility] Comment on above: Order Comment: CALL Murdock LC1W tel. [phone], called hgb to ramila oseguera rn on 1w by scbHematology results called to and read back by ramila oseguera on 1w, 12/27/201706:44, by BONSA Lymphocytes/100 WBC Auto (Bld) 22.0 % Normal [facility] Comment on above: Order Comment: CALL Murdock LC1W tel. [phone], called hgb to ramila oseguera rn on 1w by scbHematology results called to and read back by ramila oseguera on 1w, 12/27/201706:44, by BONSA Microcytic 2+ Normal [facility] Comment on above: Order Comment: CALL Murdock LC1W tel. [phone], called hgb to ramila oseguera rn on 1w by scbHematology results called to and read back by ramila oseguera on 1w, :44, by BONSA Monocytes Auto #/vol (Bld) 0.1 10*3/uL Low 0.2-0.8 [facility] Comment on above: Order Comment: CALL Murdock LC1W tel. [phone], called hgb to ramila june rn on 1w by scbHematology results called to and read back by ramila june on 1w, :44, by BONSA Monocytes/100 WBC Auto (Bld) 3.8 % Normal [facility] Comment on above: Order Comment: CALL Murdock LC1W tel. [phone], called hgb to ramila june rn on 1w by scbHematology results called to and read back by ramila june on 1w, :44, by BONSA Neutrophils Auto #/vol (Bld) 2.7 10*3/uL Normal 1.4-6.5 [facility] Comment on above: Order Comment: CALL Murdock LC1W tel. [phone], called hgb to ramila june rn on 1w by scbHematology results called to and read back by ramila june on 1w, :44, by BONSA Neutrophils/100 WBC Auto (Bld) 74.0 % Normal [facility] Comment on above: Order Comment: CALL Murdock LC1W tel. [phone], called hgb to ramila june rn on 1w by scbHematology results called to and read back by ramila june on 1w, :44, by RAYSHAWN Platelet Slide Review Decreased Normal [facility] Comment on above: Order Comment: CALL Murdock LC1W tel. [phone], called hgb to ramila june rn on 1w by scbHematology results called to and read back by ramila june on 1w, :44, by RAYSHAWN Poikilocytosis 1+ [facility] Comment on above: Order Comment: CALL [place] LC1W tel. [phone], called hgb to ramila june rn on 1w by scbHematology results called to and read back by ramila june on 1w, :44, by BONSA Basophils Auto #/vol (Bld) 0.0 10*3/uL Normal 0.0-0.2 [facility] Comment on above: Order Comment: CALL [place] tel. [phone], called hgb to ramila june rn on 1w by scbHematology results called to and read back by ramila june on 1w, :44, by BONSA Basophils/100 WBC Auto (Bld) 1.0 % Normal [facility] Comment on above: Order Comment: CALL [place] [facility] tel. [phone], called hgb to ramila june rn on 1w by scbHematology results called to and read back by ramila june on 1w, :44, by BONSA Eosinophils Auto #/vol (Bld) 0.0 10*3/uL Normal 0.0-0.7 [facility] Comment on above: Order Comment: CALL [address] tel. [phone], called hgb to ramila june rn on 1w by scbHematology results called to and read back by ramila june on 1w, :44, by BONSA Eosinophils/100 WBC Auto (Bld) 1.1 % Normal [facility] Comment on above: Order Comment: CALL [address] tel. [phone], called hgb to ramila june rn on 1w by scbHematology results called to and read back by ramila june on 1w, :44, by BONSA Erythrocyte distribution width Auto Ratio (RBC) 18.8 % Critically high 11.5-14.5 [facility] Comment on above: Order Comment: CALL [place] [facility] tel. [phone], called hgb to ramila june rn on 1w by scbHematology results called to and read back by ramila june on 1w, :44, by BONSA Hematocrit Auto Volume Fraction (Bld) 21.1 % Low 37.0-47.0 [facility] Comment on above: Order Comment: CALL [place] [facility] tel. [phone], called hgb to ramila oseguera rn on 1w by scbHematology results called to and read back by ramila june on 1w, :44, by BONSA Hemoglobin mass conc (Bld) 6.9 g/dL Critically low 12.0-16.0 [facility] Comment on above: Order Comment: CALL [place] [facility] tel. [phone], called hgb to ramila oseguera rn on 1w by scbHematology results called to and read back by ramila oseguera on 1w, :44, by BONSA Result Comment: call ed hgb to ramila june on 1w / scb MCH Auto Entitic mass (RBC) 26.5 pg Low 27.0-31.3 [facility] Comment on above: Order Comment: CALL [place] [facility] tel. [phone], called hgb to ramila oseguera rn on 1w by scbHematology results called to and read back by ramila oseguera on 1w, :44, by BONSA MCHC Auto mass conc (RBC) 32.8 % Low 33.0-37.0 [facility] Comment on above: Order Comment: CALL [place] [facility] tel. [phone], called hgb to ramila oseguera rn on 1w by scbHematology results called to and read back by ramila oseguera on 1w, :44, by BONSA MCV Auto Entitic volume (RBC) 80.9 fL Low 82.0-100.0 [facility] Comment on above: Order Comment: CALL [place] [facility] tel. [phone], called hgb to ramila oseguera rn on 1w by scbHematology results called to and read back by ramila oseguera on 1w, :44, by BONSA Platelets Auto #/vol (Bld) 122 10*3/uL Low 130-400 [facility] Comment on above: Order Comment: CALL [place] [facility] tel. [phone], called hgb to ramila oseguera rn on 1w by scbHematology results called to and read back by ramila oseguera on 1w, :44, by BONSA RBC Auto #/vol (Bld) 2.61 10*6/uL Low 4.20-5.40 [facility] Comment on above: Order Comment: CALL [place] LC1[facility] tel. [phone], called hgb to ramila oseguera rn on 1w by scbHematology results called to and read back by ramila oseguera on 1w, 12/27/201706:44, by RAYSHAWN WBC Auto #/vol (Bld) 3.6 10*3/uL Low 4.8-10.8 [facility] Comment on above: Order Comment: CALL [place] LC1[facility] tel. [phone], called hgb to ramila oseguera rn on 1w by scbHematology results called to and read back by ramila oseguera on 1w, 12/27/201706:44, by RAYSHAWN Comprehensive Metabolic Pane l reflex Mgon 12-27-2017 Albumin mass conc 2.4 g/dL Low 3.9-4.9 [facility] ALP enzyme act/vol 40 U/L Normal 40-130 [facility] ALT enzyme act/vol U/L Normal 0-33 [facility] Anion gap 3 molar conc 11 mmol/L Normal 7-13 [facility] AST enzyme act/vol 6 U/L Normal 0-35 [facility] Bilirubin mass conc mg/dL Normal 0.0-1.2 [facility] Calcium mass conc 7.7 mg/dL Low 8.6-10.2 [facility] Chloride molar conc 110 mmol/L Critically high 98-107 [facility] CO2 molar conc 20 mmol/L Low 22-29 [facility] Creatinine mass conc 0.64 mg/dL Normal 0.50-0.90 [facility] GFR/1.73 sq M predicted among blacks MDRD vol rate/area (S/P/Bld) mL/min/{1.73_m2} Normal >60 [facility] Comment on above: Result Comment: >60 mL/min/1.73m2 EGFR, calc. for ages 18 and older using theMDRD formula (not corrected for weight), is valid for stablerenal function. GFR/1.73 sq M.predicted MDRD vol rate/area mL/min/{1.73_m2} Normal >60 [facility] Comment on above: Result Comment: >60 mL/min/1.73m2 EGFR, calc. for ages 18 and older using theMDRD formula (not corrected for weight), is valid for stablerenal function. Globulin Calculated mass conc (S) 3.9 g/dL Critically high 2.3-3.5 [facility] Glucose mass conc 115 mg/dL Critically high 74-109 [facility] Potassium reflex Mg 3.8 mEq/L Normal 3.5-5.1 [facility] Protein mass conc 6.3 g/dL Low 6.4-8.1 [facility] Sodium molar conc 141 mmol/L Normal 132-144 [facility] Urea nitrogen mass conc 10 mg/dL Normal 6-20 [facility] Ferritinon 12-27-2017 Ferritin [Mass/volume] in Serum or Plasma 152.3 ng/mL Critically high 13.0-150.0 [facility] Iron Profileon 12-27-2017 % Saturation 8 % Low 11-46 [facility] Iron Binding Capacity 132 ug/dL Low 178-450 [facility] Iron mass conc 11 ug/dL Low 37-145 [facility] RBC LRon 12-27-2017 RBC Auto #/vol (Bld) PATIENT: ISABEL Jackson [id number] : 1985 SEX: FORDERED BY: KIAH CHAUDHARY ORDERED : 12/27/2017 07:06 COLLECTED: 12/27/2017 07:20ORDER : [id number] RECEIVED : 12/27/2017 07:27 -----TEST NAME RESULT UNITS RANGES ABN FL STRBC LR [id number] RBC LR W0 F = Normal [facility] Retic Automatedon 12-27-2017 Hematocrit Auto Volume Fraction (Bld) 21.1 % Low 37.0-47.0 [facility] Retic Abs 0.066 m/cumm Normal 0.022-0.11 [facility] Reticulocyte Count Automated 2.5 % Critically high 0.6-2.2 [facility] Type and Screen Capture 3 sc rn cellon 12-27-2017 Type and Screen Capture 3 scrn cell PATIENT: ISABEL Jackson LOC: LC1W,W187,01BILL# : [id number] : 1985 SEX: FORDERED BY: KIAH CHAUDHARY ORDERED : 12/27/2017 07:06 COLLECTED: 12/27/2017 07:20ORDER : [id number] RECEIVED : 12/27/2017 07:27 -----TEST NAME RESULT UNITS RANGES ABN FL STABORH Capture A POS FAntibody 3 Cell Scrn Captu NEG F @12/27/17 10:58 by BEBETO: ANTIBODY SCREEN PERFORMED ON BACKUP CAPTURE. ------- Normal [facility] Bacterial susceptibility fox el by [...] ole <=20 S S=SUSCEPTIBLE I=INTERMEDIATE R=RESISTANT Normal [facility] CT CHEST W CONTRASTon 2017 [...] tissue density, adenopathy.There is trace pericardial effusion.The [id number] the gallbladder surgically absent.IMPRESSION: FINDINGS DESCRIBED ABOVE. [...] by:FRANCO Santamariaigned by:Gordon Hinton MD12/26/17inal result Normal [facility] Culture, Blood 2on 8 Culture, Blood 2 OR DERED BY: GALLITO POLANCO: Blood COLLECTED: 12/26/17 15:49ANTIBIOTICS AT RADHA.: RECEIVED : 12/26/17 15:56Culture, Blood 2 FINAL 12/31/17 16:15 No growth after 5 days of incubation. Normal [facility] Culture, Respiratoryon 12-26 Culture, Respiratory ORDERED BY: GALLITO POLANCO: Sputum Expectorated COLLECTED: 12/26/17 14:45ANTIBIOTICS AT RADHA.: RECEIVED : 12/29/17 12:46Gram Stain Direct FINAL 12/29/17 16:19 Moderate WBC's Few epithelial cells Few Yeast with pseudohyphaeCulture, Respiratory INTERIM 12/30/17 11:53 Light growth Gram negative arminda ID and sensitivity to follow Moderate growth Yeast No further workup Normal [facility] Hepatitis C Antibodyon 12-26 Hepatitis C Antibody Interp REACTIVE Abnormal [facility] Comment on above: Order Comment: Terri gonzales has been rescheduled by VIVIEN at 12/26/2017 14:59. Reason:patient refusing until she gets pain meds Influenza A and Bon 12-27-19 Influenza A Antigen Negative Normal Negative [facility] Influenza B Antigen Negative Normal Negative [facility] Bacterial susceptibility fox el by [facility] 12-25-2017 Bacterial susceptibility panel by Minimum inhibitory concentration (ISRA) ORDERED BY: FLOYD SNIDER: Blood Blood COLLECTED: 12/25/17 21:04ANTIBIOTICS AT RADHA.: RECEIVED : 12/25/17 21:04CALL [facility]ER tel. [phone],Blood Culture results called to and read back by Beena MAOSN, 12/26/2017 19:32, by Jodie, Blood FINAL 12/28/17 07:32 1 out of 2 blood cultures POSITIVE for Serratia marcescens S. marces ANTIBIOTICS ISRA Interp A moxicillin/Clavulanate >=32 R Cefepime <=1 S Ceftriaxone <=1 S Ciprofloxacin <=0.25 S Gentamicin <=1 S Trimethoprim/Sulfamethoxaz ole <=20 S S=SUSCEPTIBLE I=INTERMEDIATE R=RESISTANT Normal [facility] CBC With Platelet and Differ entialon 12-25-2017 Basophils Auto #/vol (Bld) 0.0 10*3/uL Normal 0.0-0.2 [facility] Basophils/100 WBC Auto (Bld) 0.5 % Normal [facility] Eosinophils Auto #/vol (Bld) 0.0 10*3/uL Normal 0.0-0.7 [facility] Eosinophils/100 WBC Auto (Bld) 0.2 % Normal [facility] Erythrocyte distribution width Auto Ratio (RBC) 18.9 % Critically high 11.5-14.5 [facility] Hematocrit Auto Volume Fraction (Bld) 23.6 % Low 37.0-47.0 [facility] Hemoglobin mass conc (Bld) 8.0 g/dL Low 12.0-16.0 [facility] Hypochromia PRESENT Normal [facility] Lymphocytes Auto #/vol (Bld) 1.3 10*3/uL Normal 1.0-4.8 [facility] Lymphocytes/100 WBC Auto (Bld) 16.6 % Normal [facility] MCH Auto Entitic mass (RBC) 26.5 pg Low 27.0-31.3 [facility] MCHC Auto mass conc (RBC) 33.9 % Normal 33.0-37.0 [facility] MCV Auto Entitic volume (RBC) 78.1 fL Low 82.0-100.0 [facility] Monocytes Auto #/vol (Bld) 0.5 10*3/uL Normal 0.2-0.8 [facility] Monocytes/100 WBC Auto (Bld) 6.3 % Normal [facility] Neutrophils Auto #/vol (Bld) 6.2 10*3/uL Normal 1.4-6.5 [facility] Neutrophils/100 WBC Auto (Bld) 76.4 % Normal [facility] Platelets Auto #/vol (Bld) 178 10*3/uL Normal 130-400 [facility] RBC Auto #/vol (Bld) 3.02 10*6/uL Low 4.20-5.40 [facility] WBC Auto #/vol (Bld) 8.1 10*3/uL Normal 4.8-10.8 [facility] Comprehensive Metabolic Pane thanh 12-25-2017 Albumin mass conc 3.2 g/dL Low 3.9-4.9 [facility] ALP enzyme act/vol 39 U/L Low 40-130 [facility] ALT enzyme act/vol U/L Normal 0-33 [facility] Anion gap 3 molar conc 14 mmol/L Critically high 7-13 [facility] AST enzyme act/vol 10 U/L Normal 0-35 [facility] Bilirubin mass conc 0.6 mg/dL Normal 0.0-1.2 [facility] Calcium mass conc 8.7 mg/dL Normal 8.6-10.2 [facility] Chloride molar conc 94 mmol/L Low 98-107 [facility] CO2 molar conc 24 mmol/L Normal 22-29 [facility] Creatinine mass conc 0.68 mg/dL Normal 0.50-0.90 [facility] GFR/1.73 sq M predicted among blacks MDRD vol rate/area (S/P/Bld) mL/min/{1.73_m2} Normal >60 [facility] Comment on above: Result Comment: >60 mL/min/1.73m2 EGFR, calc. for ages 18 and older using theMDRD formula (not corrected for weight), is valid for stablerenal function. GFR/1.73 sq M.predicted MDRD vol rate/area mL/min/{1.73_m2} Normal >60 [facility] Comment on above: Result Comment: >60 mL/min/1.73m2 EGFR, calc. for ages 18 and older using theMDRD formula (not corrected for weight), is valid for stablerenal function. Globulin Calculated mass conc (S) 4.4 g/dL Critically high 2.3-3.5 [facility] Glucose mass conc 120 mg/dL Critically high 74-109 [facility] Potassium molar conc 4.2 mmol/L Normal 3.5-5.1 [facility] Protein mass conc 7.6 g/dL Normal 6.4-8.1 [facility] Sodium molar conc 132 mmol/L Normal 132-144 [facility] Urea nitrogen mass conc 7 mg/dL Normal 6-20 [facility] Creatine Kinaseon 12-25-2017 CK enzyme act/vol 19 U/L Normal 0-170 [facility] Culture, Blood 2on 8 Culture, Blood 2 OR DERED BY: FLOYD SNIDER: Blood COLLECTED: 12/25/17 21:04ANTIBIOTICS AT RADHA.: RECEIVED : 12/25/17 21:04Culture, Blood 2 FINAL 12/30/17 22:15 No growth after 5 days of incubation. Normal [facility] Lactic Acidon 12-25-2017 Lactate molar conc 2.1 mmol/L Normal 0.5-2.2 [facility] Prothrombin Timeon 8 INR Coag RelTime (PPP) 1.2 {INR} Normal [facility] Comment on above: Result Comment: Dimitrios [...] Coag time (PPP) 11.8 s Normal 9.6-12.3 [facility] Troponinon 12-25-2017 Troponin I.cardiac mass conc ng/mL Normal 0.000-0.01 [facility] Comment on above: Result Comment: Meth odology by Troponin T. UR Drug Screen Rapidon 12-25 Drug Screen Comment see below Normal [facility] Comment on above: Result Comment: This method is a screening test to detect only these drugclasses as part of a medical workup. Confirmatory testingby another method should be ordered if clinically indicated. UR Amphetamines Rapid Screen Negative Normal Negative < [facility] Comment on above: Result Comment: Effe ctive: 08/30/17Methodology and/or Reference Range-Cutoff has changed. UR Barbiturates Rapid Screen Negative Normal Negative < [facility] Comment on above: Result Comment: Effe ctive: 08/30/17Methodology and/or Reference Range-Cutoff has changed. UR Benzo Rapid Screen Negative Normal Negative < [facility] Comment on above: Result Comment: Effe ctive: 08/30/17Methodology and/or Reference Range-Cutoff has changed. UR Cannabinoids Rapid Screen Negative Normal Negative < [facility] UR Cocaine Rapid Screen Negative Normal Negative < [facility] Comment on above: Result Comment: Effe ctive: 08/30/17Methodology and/or Reference Range-Cutoff has changed. UR Opiates Rapid Screen Negative Normal Negative < [facility] Comment on above: Result Comment: Effe ctive: 08/30/17Methodology and/or Reference Range-Cutoff has changed. UR PCP Rapid Screen Negative Normal Negative < [facility] UR Tricyclics Rapid Screen - Rapid Negative Normal Negative < [facility] Comment on above: Result Comment: Effe ctive: 08/30/17Methodology and/or Reference Range-Cutoff has changed. UR HCG Qualitativeon 018 HCG.beta subunit ( test) Ql (U) Negative Normal Detects HC [facility] Urinalysis, reflex to cultur eugenia 12-25-2017 Bilirubin Ql (U) Negative Normal Negative [facility] Clarity Nom (U) Clear Normal Clear [facility] Color Nom (U) Yellow Normal Straw/[place] [facility] Glucose Ql (U) Negative Normal Negative [facility] Hemoglobin Test strip Ql (U) Negative Normal Negative [facility] Ketones Ql (U) Negative Normal Negative [facility] Leukocyte esterase Test strip Ql (U) Negative Normal Negative [facility] Nitrite Test strip Ql (U) Negative Normal Negative [facility] pH Test strip (U) 7.0 [pH] Normal 5.0-9.0 [facility] Protein Test strip Ql (U) Negative Normal Negative [facility] Specific gravity Relative Density (U) 1.015 Normal 1.005-1.03 [facility] Urine Reflexed to Culture Not Indicated Normal [facility] Urobilinogen Test strip Qn (U) 0.2 {Katy'U}/dL Normal < 2.0 [facility] Vital Signs Date Time Vital Sign Value Performing Clinician Facility 03-09-2024 14:38-0500 Body height 172.7 cm Sonya Manningpatrick ASSISTANT PROFESSOR OF PHILOS[employer]HY Work Phone: [facility] 03-09-2024 14:38-0500 Body mass index (BMI) [Ratio] 46.98 kg/m2 Sonya Robertszpatrick ASSISTANT PROFESSOR OF PHILOSOPHY Work Phone: [facility] 03-09-2024 14:38-0500 Body temperature 97.81 [degF] Sonya Manningpatrick ASSISTANT PROFESSOR OF PHILOSOPHY Work Phone: [facility] 03-09-2024 14:38-0500 Body weight 140.16 kg Sonya Robertszpatrick ASSISTANT PROFESSOR OF PHILOSOPHY Work Phone: [facility] 03-09-2024 14:38-0500 Diastolic blood pressure 88 mm[Hg] Sonya Robertszpatrick ASSISTANT PROFESSOR OF PHILOSOPHY Work Phone: [facility] 03-09-2024 14:38-0500 Heart rate 91 /min Sonya Villa ASSISTANT PROFESSOR OF PHILOSOPHY Work Phone: [facility] 03-09-2024 14:38-0500 Respiratory rate 16 /min Sonya Villa ASSISTANT PROFESSOR OF PHILOSOPHY Work Phone: [facility] 03-09-2024 14:38-0500 SaO2% (BldA) [Mass fraction] 96 % Sonya Robertszpatrick ASSISTANT PROFESSOR OF PHILOSOPHY Work Phone: [facility] 03-09-2024 14:38-0500 Systolic blood pressure 158 mm[Hg] Sonya Villa ASSISTANT PROFESSOR OF PHILOSOPHY Work Phone: [facility] 11-23-2023 15:22-0400 Body mass index (BMI) [Ratio] 48.24 kg/m2 Sonya Villa ASSISTANT PROFESSOR OF PHILOSOPHY Work Phone: [facility] 11-23-2023 15:22-0400 Body temperature 97.3 [degF] Sonya Villa ASSISTANT PROFESSOR OF PHILOSOPHY Work Phone: [facility] 11-23-2023 15:22-0400 Body weight 139.71 kg Sonya Villa ASSISTANT PROFESSOR OF PHILOSOPHY Work Phone: [facility] 11-23-2023 15:22-0400 Diastolic blood pressure 102 mm[Hg] Sonya Villa ASSISTANT PROFESSOR OF PHILOSOPHY Work Phone: [facility] 11-23-2023 15:22-0400 Heart rate 82 /min Sonya Villa ASSISTANT PROFESSOR OF PHILOSOPHY Work Phone: [facility] 11-23-2023 15:22-0400 SaO2% (BldA) [Mass fraction] 97 % Sonya Villa ASSISTANT PROFESSOR OF PHILOSOPHY Work Phone: [facility] 11-23-2023 15:22-0400 Systolic blood pressure 146 mm[Hg] Sonya Villa ASSISTANT PROFESSOR OF PHILOSOPHY Work Phone: [facility] 10-11-2023 15:42-0400 Body height 170.2 cm Sonya Villa ASSISTANT PROFESSOR OF PHILOSOPHY Work Phone: [facility] 10-11-2023 15:42-0400 Body mass index (BMI) [Ratio] 49.02 kg/m2 Sonya Villa ASSISTANT PROFESSOR OF PHILOSOPHY Work Phone: [facility] 10-11-2023 15:42-0400 Body temperature 97.3 [degF] Sonya Villa ASSISTANT PROFESSOR OF PHILOSOPHY Work Phone: [facility] 10-11-2023 15:42-0400 Body weight 141.98 kg Sonya Villa ASSISTANT PROFESSOR OF PHILOSOPHY Work Phone: [facility] 10-11-2023 15:42-0400 Diastolic blood pressure 90 mm[Hg] Sonya Herediak ASSISTANT PROFESSOR OF PHILOSOPHY Work Phone: [facility] 10-11-2023 15:42-0400 Heart rate 89 /min Sonya Herediak ASSISTANT PROFESSOR OF PHILOSOPHY Work Phone: [facility] Comment on above: 100% O2 10-11-2023 15:42-0400 Systolic blood pressure 136 mm[Hg] Sonya Herediak ASSISTANT PROFESSOR OF PHILOSOPHY Work Phone: [facility] 12-25-2017 19:30-0500 Body mass index (BMI) [Ratio] [facility] Encounters Encounter Date Encounter Type Care Provider Facility Start: 03-09-2024 End: 03-09-2024 Office outpatient visit 10 minutes Sonya Manningpatrick ASSISTANT PROFESSOR OF PHILOSOPHY Work Phone: [facility] Comment on above: Acute paronychia of right thumb (Primary Dx); Primary hypertension (CMS/HCC) Start: 03-09-2024 End: 03-09-2024 Bamboo flowsheet Sonya Herediak ASSISTANT PROFESSOR OF PHILOSOPHY Work Phone: [facility] Start: 03-09-2024 End: 03-09-2024 Bamboo flowsheet Sonya Herediak ASSISTANT PROFESSOR OF PHILOSOPHY Work Phone: [facility] Start: 12-09-2023 End: 12-09-2023 Orders Only Sonya Villa ASSISTANT PROFESSOR OF PHILOSOPHY Work Phone: [facility] Comment on above: Acute non-recurrent frontal sinusitis (Primary Dx) Start: 11-23-2023 End: 11-23-2023 Periodic preventive med est patient 18-39 yrs Sonya Villa ASSISTANT PROFESSOR OF PHILOSOPHY Work Phone: [facility] Comment on above: Blood pressure eleva yue without history of HTN (Primary Dx); Morbid obesity (CMS/HCC); Encounter for wellness examination in adult; Tinea pedis of both feet; Opioid abuse, in remission ([facility]) Start: 11-23-2023 End: 11-23-2023 ambulatory SONYA VILLA Not Available Start: 11-23-2023 End: 11-23-2023 Bamboo flowsheet Sonya Villa ASSISTANT PROFESSOR OF PHILOSOPHY Work Phone: [facility] Start: 11-23-2023 End: 11-23-2023 Bamboo flowsheet Sonya Villa ASSISTANT PROFESSOR OF PHILOSOPHY Work Phone: [facility] Start: 11-23-2023 End: 11-23-2023 Patient encounter status Sonya Villa ASSISTANT PROFESSOR OF PHILOSOPHY Work Phone: [facility] Start: 10-11-2023 End: 10-11-2023 ambulatory SONYA VILLA Not Available Start: 10-11-2023 End: 10-11-2023 Office outpatient visit 15 minutes Sonya Villa ASSISTANT PROFESSOR OF PHILOSOPHY Work Phone: [facility] Comment on above: Encounter for weight management (Primary Dx) Start: 08-12-2023 End: 08-12-2023 ambulatory KISER FAWWAD Not Available Start: 07-13-2023 End: 07-13-2023 ambulatory KISER FAWWAD Not Available Start: 06-10-2023 End: 06-10-2023 ambulatory KISER FAWWAD Not Available Start: 05-26-2023 End: 05-26-2023 ambulatory URIAH AICHHOLZ Not Available Start: 05-04-2023 End: 05-04-2023 ambulatory KISER FAWWAD Not Available Start: 04-19-2023 End: 04-19-2023 ambulatory KISER FAWWAD Not Available Start: 04-05-2023 End: 04-05-2023 ambulatory KISER FAWWAD Not Available Start: 04-05-2023 Patient encounter status Huyen any Villa ASSISTANT PROFESSOR OF PHILOSOPHY Work Phone: [facility] Start: 03-03-2023 End: 03-03-2023 ambulatory KISER FAWWAD Not Available Start: 02-09-2023 End: 02-09-2023 ambulatory JESSICA GARG Not Available Start: 01-25-2023 End: 01-25-2023 ambulatory EDUAR PADILLA Not Available Start: 01-19-2023 End: 01-19-2023 ambulatory EDUAR PLASCENCIAEY Not Available Start: 01-05-2023 End: 01-05-2023 ambulatory [...] 04-24-2019 Emergency department patient visit UNKNOWN PROVIDER Facility:[facility] Start: 04-05-2018 End: 04-05-2018 Emergency department patient visit NO FAMILY DOCTOR NO FAMILY DOCTOR Facility:[facility] [employer] Start: 02-01-2018 End: 02-02-2018 Patient encounter procedure [facility] Start: 01-31-2018 End: 02-01-2018 Patient encounter procedure [facility] Start: 01-30-2018 End: 01-31-2018 Patient encounter procedure [facility] Start: 01-29-2018 End: 01-30-2018 Patient encounter procedure TINA A DIANNE [facility] Start: 01-28-2018 End: 01-29-2018 [facility] [facility] Start: 01-27-2018 End: 01-28-2018 [facility] Start: 01-26-2018 End: 01-27-2018 [facility] Start: 01-25-2018 End: 01-26-2018 [facility] Start: 01-24-2018 End: 01-25-2018 [facility] Start: 01-23-2018 End: 01-24-2018 [facility] Start: 01-22-2018 End: 01-23-2018 [facility] Start: 01-21-2018 End: 01-22-2018 [facility] Start: 01-20-2018 End: 01-21-2018 [facility] Start: 01-19-2018 End: 01-20-2018 [facility] Start: 01-18-2018 End: 01-19-2018 Patient encounter procedure TINA A DIANNE [facility] Start: 01-17-2018 End: 01-18-2018 [facility] Start: 01-16-2018 End: 01-17-2018 [facility] Start: 01-15-2018 End: 01-16-2018 [facility] Start: 01-14-2018 End: 01-15-2018 [facility] Start: 01-13-2018 End: 01-14-2018 [facility] Start: 01-12-2018 End: 01-13-2018 Patient encounter procedure TINA A [facility] Start: 01-11-2018 End: 01-12-2018 Patient encounter procedure TINA A [facility] Start: 01-10-2018 End: 01-11-2018 Patient encounter procedure TINA A LUZUD [facility] Start: 01-09-2018 End: 01-10-2018 Patient encounter procedure [facility] Start: 01-08-2018 End: 01-09-2018 Patient encounter procedure TINA Renetta [facility] Start: 01-07-2018 End: 01-08-2018 Patient encounter procedure [facility] Start: 01-06-2018 End: 01-07-2018 Patient encounter procedure [facility] Start: 01-05-2018 End: 01-06-2018 Patient encounter procedure [facility] Start: 12-26-2017 End: 01-04-2018 Evaluation and management of inpatient [facility] Start: 12-25-2017 End: 12-25-2017 Emergency department patient visit [facility] Procedures Date Procedure Procedure Detail Performing Clinician Start: 08-25-2022 Microscopic observat ion [Identifier] in Cervix by Cyto stain Sonya Villa ASSISTANT PROFESSOR OF PHILOSOPHY Work Phone: Start: 04-24-2019 DISCHARGE PATIENT UNKNO WN PROVIDER Start: 02-01-2018 REMOVE PICC IVAN TO BEY Start: 02-01-2018 Basic metabolic pane l calcium total IVAN JIM Start: 02-01-2018 Blood count complete automated IVAN JIM Start: 01-25-2018 Basic metabolic pane l calcium total IVAN JIM Start: 01-25-2018 Blood count complete auto&auto difrntl wbc IVAN JIM Start: 01-21-2018 Basic metabolic pane l calcium total IVAN JIM Start: 01-21-2018 Blood count complete automated IVAN JIM Start: 01-11-2018 Basic metabolic pane l calcium total IVAN JIM Start: 01-11-2018 Blood count complete auto&auto difrntl wbc IVAN JIM Start: 01-04-2018 INCENTIVE SPIROMETRY RT VERO BAGHDY Start: 01-04-2018 PULSE OXIMETRY, CONTINUOUS VERO BAGHDY Start: 01-04-2018 DISCHARGE PATIENT YACOU B BAGHDY Start: 01-04-2018 NURSING COMMUNICATION Y ACOUB BAGHDY Start: 01-04-2018 INCENTIVE SPIROMETRY RT VERO BAGHDY Start: 01-04-2018 Basic metabolic pane l calcium total VERO BAGHDY Start: 01-04-2018 INCENTIVE SPIROMETRY RT VERO Start: 01-04-2018 INITIATE OXYGEN THER APY PROTOCOL VERO Start: 01-04-2018 PULSE OXIMETRY, CONTINUOUS VERO Start: 01-04-2018 INCENTIVE SPIROMETRY RT VERO Start: 01-04-2018 Blood count complete auto&auto difrntl wbc VERO Start: 01-04-2018 INCENTIVE SPIROMETRY RT VERO Start: 01-04-2018 INCENTIVE SPIROMETRY RT VERO Start: 01-04-2018 Culture bacterial bl ood aerobic w/id isolates Start: 01-04-2018 PULSE OXIMETRY, CONTINUOUS Start: 01-04-2018 INCENTIVE SPIROMETRY RT Start: 01-04-2018 INCENTIVE SPIROMETRY RT VERO Start: 01-04-2018 PULSE OXIMETRY, CONTINUOUS Start: 01-04-2018 INCENTIVE SPIROMETRY RT VERO Start: 01-04-2018 INCENTIVE SPIROMETRY RT VERO Start: 01-03-2018 INCENTIVE SPIROMETRY RT VERO Start: 01-03-2018 PULSE OXIMETRY, CONTINUOUS VERO Start: 01-03-2018 CULTURE BLOOD #1 VERO Start: 01-03-2018 Microscopic examinat ion of blood, culture VERO Start: 01-03-2018 INCENTIVE SPIROMETRY RT Start: 01-03-2018 INCENTIVE SPIROMETRY RT Start: 01-03-2018 PULSE OXIMETRY, CONTINUOUS VERO Start: 01-03-2018 INCENTIVE SPIROMETRY RT VERO Start: 01-03-2018 INCENTIVE SPIROMETRY RT VERO Start: 01-03-2018 PULSE OXIMETRY, CONTINUOUS VERO Start: 01-03-2018 INCENTIVE SPIROMETRY RT VERO Start: 01-03-2018 NURSING COMMUNICATION Y ACOUB Start: 01-03-2018 INCENTIVE SPIROMETRY RT VERO Start: 01-03-2018 INCENTIVE SPIROMETRY RT VERO Start: 01-03-2018 INITIATE OXYGEN THER APY PROTOCOL Start: 01-03-2018 PULSE OXIMETRY, CONTINUOUS VERO Start: 01-03-2018 INCENTIVE SPIROMETRY RT VERO Start: 01-03-2018 INCENTIVE SPIROMETRY RT VERO Start: 01-03-2018 INCENTIVE SPIROMETRY RT Start: 01-03-2018 PULSE OXIMETRY, CONTINUOUS VERO Start: 01-03-2018 INCENTIVE SPIROMETRY RT Start: 01-03-2018 INCENTIVE SPIROMETRY RT Start: 01-03-2018 PULSE OXIMETRY, CONTINUOUS VERO Start: 01-03-2018 INCENTIVE SPIROMETRY RT VERO Start: 01-02-2018 INCENTIVE SPIROMETRY RT VERO Start: 01-02-2018 PULSE OXIMETRY, CONTINUOUS VERO Start: 01-02-2018 INCENTIVE SPIROMETRY RT VERO BAG Start: 01-02-2018 INCENTIVE SPIROMETRY RT VERO Start: 01-02-2018 PULSE OXIMETRY, CONTINUOUS VERO Start: 01-02-2018 INCENTIVE SPIROMETRY RT Start: 01-02-2018 INCENTIVE SPIROMETRY RT VERO Start: 01-02-2018 PULSE OXIMETRY, CONTINUOUS Start: 01-02-2018 INCENTIVE SPIROMETRY RT VERO Start: 01-02-2018 INCENTIVE SPIROMETRY RT VERO BAG Start: 01-02-2018 Drug tst prsmv instr mnt chem analyzers pr date Start: 01-02-2018 INCENTIVE SPIROMETRY RT VERO Start: 01-02-2018 INITIATE OXYGEN THER APY PROTOCOL Start: 01-02-2018 PULSE OXIMETRY, CONTINUOUS VERO Start: 01-02-2018 INCENTIVE SPIROMETRY RT VERO Start: 01-02-2018 Blood count complete auto&auto difrntl wbc VERO Start: 01-02-2018 INCENTIVE SPIROMETRY RT VERO BAG Start: 01-02-2018 PULSE OXIMETRY, CONTINUOUS VERO Start: [...] RT VERO Start: 01-01-2018 NURSING COMMUNICATION Y [facility] Start: 01-01-2018 INCENTIVE SPIROMETRY RT Start: 01-01-2018 [...] SPIROMETRY RT Start: 12-31-2017 PULSE OXIMETRY, CONTINUOUS VERO Start: 12-31-2017 INCENTIVE SPIROMETRY RT VERO BAGHDY Start: 12-31-2017 Fluoro central venou s access dev placement VERO BAGHDY Start: 12-31-2017 Insj prph 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 age 5 yr/> VERO BAGHDY Start: 12-31-2017 Us vasc access sits vsl patency ndl entry VERO BAGHDY Start: 12-31-2017 INCENTIVE SPIROMETRY RT VERO BAGHDY Start: 12-31-2017 INCENTIVE SPIROMETRY RT VERO BAGHDY Start: 12-31-2017 PULSE OXIMETRY, CONTINUOUS VERO BAGHDY Start: 12-31-2017 INCENTIVE SPIROMETRY RT VERO BAGHDY Start: 12-31-2017 INCENTIVE SPIROMETRY RT VERO BAGHDY Start: 12-31-2017 PULSE OXIMETRY, CONTINUOUS VERO BAGHDY Start: 12-31-2017 INCENTIVE SPIROMETRY RT VERO BAGHDY Start: 12-31-2017 INSERT PICC LINE VERO BAGHDY Start: 12-31-2017 MISCELLANEOUS NURSIN G CARE ORDER (SPECIFY) VERO BAGHDY Start: 12-31-2017 NOTIFY PHYSICIAN (SPECIFY) VERO BAGHDY Start: 12-31-2017 NURSING COMMUNICATION Y ACOUB BAGHDY Start: 12-31-2017 INCENTIVE SPIROMETRY RT VERO BAGHDY Start: 12-31-2017 INCENTIVE SPIROMETRY RT VERO BAGHDY Start: 12-31-2017 INITIATE OXYGEN THER APY PROTOCOL VERO BAGHDY Start: 12-31-2017 PULSE OXIMETRY, CONTINUOUS VERO BAGHDY Start: 12-31-2017 Blood count complete auto&auto difrntl wbc VERO BAGHDY Start: 12-31-2017 INCENTIVE SPIROMETRY RT VERO BAGHDY Start: 12-31-2017 INCENTIVE SPIROMETRY RT VERO BAGHDY Start: 12-31-2017 PULSE OXIMETRY, CONTINUOUS VERO BAGHDY Start: 12-31-2017 INCENTIVE SPIROMETRY RT VERO BAGHDY Start: 12-31-2017 INCENTIVE SPIROMETRY RT VERO BAGHDY Start: 12-31-2017 Culture bacterial bl ood aerobic w/id isolates VERO BAGHDY Start: 12-31-2017 CULTURE BLOOD #1 VERO BAGHDY Start: 12-31-2017 Microscopic examinat ion of blood, culture VERO BAGHDY Start: 12-31-2017 INCENTIVE SPIROMETRY RT VERO Start: 12-31-2017 PULSE OXIMETRY, CONTINUOUS VERO Start: 12-31-2017 INCENTIVE SPIROMETRY RT Start: 12-30-2017 [...] 12-30-2017 Blood count complete auto&auto difrntl wbc Start: 12-30-2017 Comprehensive metabo lic panel Start: 12-30-2017 INCENTIVE SPIROMETRY RT Start: 12-30-2017 Ct maxillofacial w/o contrast material [...] Start: 12-30-2017 INCENTIVE SPIROMETRY RT VERO Start: 12-29-2017 INCENTIVE SPIROMETRY RT VERO BAGHDY [...] BAG HDY Start: 12-29-2017 Smr prim src fluorescent&/afs bct fngi parasit VERO BAGHDY Start: 12-29-2017 ACID FAST CULTURE WI TH SMEAR VERO BAGHDY Start: 12-29-2017 Cell count [...] VERO BAGHDY Start: 12-29-2017 ACID FAST CULTURE WI TH SMEAR VERO BAGHDY Start: 12-29-2017 INCENTIVE SPIROMETRY RT VERO BAGHDY Start: 12-29-2017 PULSE OXIMETRY, CONTINUOUS VERO BAGHDY Start: 12-29-2017 CYTOLOGY, 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-ENGINEERING 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 DIRECTOR YACOU B BAGHDY Start: 12-29-2017 INCENTIVE SPIROMETRY [...] RT VERO Start: 12-29-2017 IP CONSULT TO CHEMJOSE ANGEL AL DEPENDENCY VERO Start: 12-29-2017 INCENTIVE SPIROMETRY RT VERO Start: 12-29-2017 PULSE OXIMETRY, CONTINUOUS VERO Start: 12-29-2017 INCENTIVE SPIROMETRY RT Start: 12-28-2017 INCENTIVE SPIROMETRY RT Start: 12-28-2017 PULSE OXIMETRY, CONTINUOUS VERO Start: 12-28-2017 INCENTIVE SPIROMETRY RT Start: 12-28-2017 INCENTIVE SPIROMETRY RT Start: 12-28-2017 INCENTIVE SPIROMETRY RT Start: 12-28-2017 PULSE OXIMETRY, CONTINUOUS VERO Start: 12-28-2017 INCENTIVE SPIROMETRY RT Start: 12-28-2017 INCENTIVE SPIROMETRY RT VERO Start: 12-28-2017 PULSE OXIMETRY, CONTINUOUS Start: 12-28-2017 Blood count complete automated Start: 12-28-2017 INCENTIVE SPIROMETRY RT Start: 12-28-2017 INCENTIVE SPIROMETRY RT VERO Start: 12-28-2017 Radiologic exam ches t single view VERO Start: 12-28-2017 INCENTIVE SPIROMETRY RT VERO Start: 12-28-2017 INITIATE OXYGEN THER APY PROTOCOL Start: 12-28-2017 PULSE OXIMETRY, CONTINUOUS VERO Start: 12-28-2017 INCENTIVE SPIROMETRY RT VERO Start: 12-28-2017 INCENTIVE SPIROMETRY RT VERO Start: 12-28-2017 PULSE OXIMETRY, CONTINUOUS VERO Start: 12-28-2017 INCENTIVE SPIROMETRY RT VERO BAGHDY Start: 12-28-2017 INCENTIVE SPIROMETRY RT VERO DIANEY Start: 12-28-2017 FULL CODE VERO BAG HDY Start: 12-28-2017 NURSING COMMUNICATION Y VINICIUS DALTON Start: 12-28-2017 PULSE OXIMETRY, CONTINUOUS VERO BAGHDY Start: 12-28-2017 VERIFY INFORMED CONSENT VERO BAGHDY Start: 12-28-2017 INCENTIVE SPIROMETRY RT VERO BAGHDY Start: 12-28-2017 INCENTIVE SPIROMETRY RT VERO BAGHDY Start: 12-27-2017 INCENTIVE SPIROMETRY RT VERO BAGHD Start: 12-27-2017 INCENTIVE SPIROMETRY RT VERO BAGHD Start: 12-27-2017 AMBULATE PATIENT VERO DIANE Start: 12-27-2017 ASSESS GAG REFLEX FREDDIEU B Start: 12-27-2017 INITIATE OXYGEN THER APY PROTOCOL VERO Start: 12-27-2017 TOBACCO CESSATION EDUCATION VERO Start: 12-27-2017 VITAL SIGNS VERO BAG MINERVA Start: 12-27-2017 WOUND CARE VERO VIKI PALMA Start: 12-27-2017 ADVANCE DIET TOLE RATED (NURSING COMMUNICATION) VERO Start: 12-27-2017 INCENTIVE SPIROMETRY RT VERO DIANE Start: 12-27-2017 Echo transesophag r- t 2d w/prb img acquisj i&r VERO VIKI Start: 12-27-2017 INCENTIVE SPIROMETRY RT VERO DIANE Start: 12-27-2017 INCENTIVE SPIROMETRY RT VERO DIANE Start: 12-27-2017 IP CONSULT TO CARDIOLOGY VERO BAGHD Start: 12-27-2017 IP CONSULT TO PAIN MANAGEMENT VERO HD Start: 12-27-2017 IP CONSULT TO INFECT IOUS DISEASES VERO BAGHD Start: 12-27-2017 INCENTIVE SPIROMETRY RT VERO DIANE Start: 12-27-2017 Echo tthrc r-t 2d w/wom-mode compl spec&colr d VERO VIKI Start: 12-27-2017 INCENTIVE SPIROMETRY RT VERO BAGHDY Start: 12-27-2017 TTE w or wo fol wcon,Doppler VERO BAGHD Start: 12-27-2017 INCENTIVE SPIROMETRY RT VERO BAG Start: 12-27-2017 PREPARE RBC (CROSSMATCH) VERO Start: 12-27-2017 TYPE AND SCREEN VERO Start: 12-27-2017 INCENTIVE SPIROMETRY RT VERO Start: 12-27-2017 Blood count complete auto&auto difrntl wbc VERO Start: 12-27-2017 Ferritin [Mass/volum e] in Serum or Plasma VERO Start: 12-27-2017 IRON AND TIBC VERO Start: 12-27-2017 RETICULOCYTES VERO BA Start: 12-27-2017 INCENTIVE SPIROMETRY RT VERO Start: 12-27-2017 INCENTIVE SPIROMETRY RT VERO Start: 12-27-2017 INCENTIVE SPIROMETRY RT VERO Start: 12-27-2017 INCENTIVE SPIROMETRY RT VERO Start: 12-27-2017 INCENTIVE SPIROMETRY RT VERO Start: 12-27-2017 INCENTIVE SPIROMETRY RT VERO Start: 12-27-2017 INCENTIVE SPIROMETRY RT VERO Start: 12-26-2017 INCENTIVE SPIROMETRY RT VERO Start: 12-26-2017 ACID FAST CULTURE WI TH SMEAR VERO BAGHD Start: 12-26-2017 INCENTIVE SPIROMETRY RT VERO Start: 12-26-2017 RAPID INFLUENZA A/B ANTIGENS VERO Start: 12-26-2017 ACID FAST CULTURE WI TH SMEAR VERO BAGHDY Start: 12-26-2017 INCENTIVE SPIROMETRY RT VERO Start: 12-26-2017 Apolipoprotein each JEWEL OUB Start: 12-26-2017 Culture bacterial bl ood aerobic w/id isolates VERO Start: 12-26-2017 HEPATITIS B CORE ANT IBODY, TOTAL VERO BAGHD Start: 12-26-2017 HEPATITIS C ANTIBODY YA COUB Start: 12-26-2017 HEPATITIS C RNA, QUANTITATIVE, PCR VERO Start: 12-26-2017 Tb cell mediated ant ign respnse gamma interferon VERO BAGHD Start: 12-26-2017 TRANSFERRIN VERO BAG HD Start: 12-26-2017 CONTACT ISOLATION YACOU B BAGHDY Start: 12-26-2017 IP CONSULT TO PULMONOLOGY VERO BAGHDY Start: 12-26-2017 EKG 12-LEAD VERO BAG HDY Start: 12-26-2017 ICE TO AFFECTED AREA YA VICK BAGHDY Start: 12-26-2017 Cul bact xcpt urine blood/stool aerobic isol VERO BAGHDY Start: 12-26-2017 NURSING SPUTUM COLLECTION VERO BAGHDY Start: 12-26-2017 PHYSICIAN COMMUNICAT ION ORDER VERO BAGHDY Start: 12-26-2017 Ct thorax w/contrast material VERO BAGHDY Start: 12-26-2017 OBTAIN MEDICAL RECORDS VERO BAGHDY Start: 12-26-2017 REASON FOR NO MECHAN ICAL VTE PROPHYLAXIS VERO BAGHDY Start: 12-26-2017 TOBACCO CESSATION EDUCATION VERO BAGHDY Start: 12-26-2017 VITAL SIGNS VERO BAG HDY Start: 12-26-2017 PATIENT STATUS (DIRECT) VERO BAGMINERVAY Start: 12-25-2017 Culture bacterial bl ood aerobic w/id isolates IVAN FERNANDEZ Start: 12-25-2017 CULTURE BLOOD #1 TARA FERNANDEZ Start: 12-25-2017 Microscopic examinat ion of blood, culture IVAN FERNANDEZ Start: 12-25-2017 URINE DRUG SCREEN, COMPREHENSIVE IVAN FERNANDEZ Start: 12-25-2017 Urine test visual color cmprsn meths IVAN JIM Start: 12-25-2017 URINE RT REFLEX TO CULTURE IVAN FERNANDEZ Start: 12-25-2017 CK IVAN TO BEY Start: 12-25-2017 Comprehensive metabo lic panel IVAN FERNANDEZ Start: 12-25-2017 LACTIC ACID, PLASMA TANIKA TEENA JIM Start: 12-25-2017 Prothrombin time TARA ROMEROEY Start: 12-25-2017 TROPONIN IVAN TO BEY Start: 12-25-2017 Radiologic exam ches t 2 views IVAN FERNANDEZ Start: 12-25-2017 Blood count complete auto&auto difrntl wbc IVAN JIM Start: 12-25-2017 EKG 12-LEAD IVAN TO BEY Start: 12-25-2017 SALINE LOCK IV IVAN FERNANDEZ Plan of Treatment Date Care Activity Detail Author Start: 10-02-2027 Screening for malign ant neoplasm of cervix HPV/Cotest [facility] Start: 08-26-2027 Screening for malign ant neoplasm of cervix [facility] Start: 03-13-2024 End: 03-13-2024 Patient encounter procedure 03/13/2024 2:30 PM EST Office Visit [facility] [address] [place] [address] Sonya Villa, ASSISTANT PROFESSOR OF PHILOSOPHY [address] [place] [address] [facility] Start: 12-28-2023 End: 12-28-2023 Patient encounter procedure 12/28/2023 3:30 PM EST Office Visit [facility] [address] [place] [address] Sonya Villa, ASSISTANT PROFESSOR OF PHILOSOPHY [address] [place] [address] [facility] Start: 11-23-2023 End: 11-23-2023 Patient encounter procedure 11/23/2023 3:30 PM EDT Office Visit [facility] [address] [place] [address] Sonya Villa, ASSISTANT PROFESSOR OF PHILOSOPHY [address] [place] [address] Blood pressure elevated without history of HTN (Primary Dx); Morbid obesity (CMS/HCC) [facility] Comment on above: Blood pressure eleva yue without history of HTN (Primary Dx); Morbid obesity (CMS/HCC) Start: 11-23-2023 End: 11-22-2024 CBC W Auto Differential panel - Blood CBC and differential Lab Routine Blood pressure elevated without history of HTN Encounter for wellness examination in adult Expected: 11/23/2023 (Approximate), Expires: 11/22/2024 [facility] Comment on above: Expected: 11/23/2023 (Approximate), Expires: 11/22/2024 Start: 11-23-2023 End: 11-22-2024 Comprehensive metabolic 2000 panel - Serum or Plasma Comprehensive metabolic panel Lab Routine Blood pressure elevated without history of HTN Encounter for wellness examination in adult Expected: 11/23/2023 (Approximate), Expires: 11/22/2024 [facility] Comment on above: Expected: 11/23/2023 (Approximate), Expires: 11/22/2024 Start: 11-23-2023 End: 11-22-2024 Hemoglobin A1c/Hemoglobin.total in Blood Hemoglobin A1c Lab Routine Encounter for wellness examination in adult Expected: 11/23/2023 (Approximate), Expires: 11/22/2024 [facility] Comment on above: Expected: 11/23/2023 (Approximate), Expires: 11/22/2024 Start: 11-23-2023 End: 11-22-2024 Lipid 1996 panel - Serum or Plasma Lipid panel Lab Routine Encounter for wellness examination in adult Expected: 11/23/2023 (Approximate), Expires: 11/22/2024 [facility] Comment on above: Expected: 11/23/2023 (Approximate), Expires: 11/22/2024 Start: 11-23-2023 End: 11-22-2024 TSH W/REFLEX TO FT4 TSH W/REFLEX TO FT4 Lab Routine Blood pressure elevated without history of HTN Encounter for wellness examination in adult Expected: 11/23/2023 (Approximate), Expires: 11/22/2024 [facility] Work Phone: Comment on above: Expected: 11/23/2023 (Approximate), Expires: 11/22/2024 Start: 11-11-2023 End: 11-11-2023 Patient encounter procedure 11/11/2023 3:30 PM EDT Office Visit [facility] [address] [place] [address] Sonya Villa NP [address] [place] [address] [facility] Start: 10-17-2023 Influenza vaccination Influenza Vacc ine (#1) [facility] Comprehensive metabo lic 2000 panel - Serum or Plasma Comprehensive metabolic panel Lab Routine Primary hypertension ([facility]/HCC) Ordered: 03/09/2024 [facility] Work Phone: Comment on above: Ordered: 03/09/2024 Immunizations Immunization Date Immunization Notes Care Provider Segundo gardner 03-11-2018 influenza, injectabl e, quadrivalent, contains preservative Sonya Villa ASSISTANT PROFESSOR OF PHILOSOPHY Work Phone: [facility] 03-11-2018 influenza virus vaccine, unspecified formulation Sonya Droantrick ASSISTANT PROFESSOR OF PHILOSOPHY Work Phone: [facility] Payers Date Payer Category Payer Unknown 2022 Medicaid [id number] 2018 Medicaid [id number] 2017 Medicaid ACUTE 04-15-2016 Medicaid [id number] 1985 Unknown [id number] 2.16.84 0.1.683512.3.579.2.185 1985 Unknown [id number] 2.16.8 40.1.191885.3.579.2.182 1985 Unknown [id number] 2.16. 840.1.411831.3.579.2.732 1985 Unknown [id number] 2.16.84 0.1.840953.3.579.2.593 1985 Unknown [id number] 2.16.84 0.1.115914.3.579.2.593 1985 Unknown [id number] 2.16.84 0.1.666907.3.579.2.593 1985 Unknown [id number] 2.16.84 0.1.470514.3.579.2.593 1985 Unknown [id number] 2.16.84 0.1.043971.3.579.2.593 1985 Unknown [id number] 2.16. 840.1.893938.3.579.2.196 1985 Unknown [id number] 2.16. 840.1.682858.3.579.2.196 1985 Unknown [id number] 2.16. 840.1.777346.3.579.2.196 1985 Unknown [id number] 2.16.84 0.1.530822.3.579.2.1258 1985 Unknown [id number] 2.16.84 0.1.901388.3.579.2.1258 1985 Unknown [id number] 2.16.84 0.1.572544.3.579.2.1258 1985 Unknown [id number] 2.16.84 0.1.795632.3.579.2.1258 1985 Unknown [id number] 2.16.84 0.1.915043.3.579.2.1258 1985 Unknown [id number] 2.16.84 0.1.485292.3.579.2.1258 1985 Unknown [id number] 2.16.84 0.1.689517.3.579.2.1258 1985 Unknown [id number] 2.16.84 0.1.697635.3.579.2.1258 1985 Unknown [id number] 2.16.84 0.1.164427.3.579.2.1258 1985 Unknown [id number] 2.16.84 0.1.703744.3.579.2.1258 1985 Unknown [id number] 2.16.840 .1.273785.3.579.2.1258 1985 Unknown [id number] 2.16.840 .1.206484.3.579.2.1258 1985 Unknown [id number] 2.16.840 .1.580695.3.579.2.1258 1985 Unknown [id number] 2.16.840 .1.207886.3.579.2.1258 1985 Unknown [id number] 2.16.840. 1.394413.3.579.2.1259 02-15-1959 Unknown [id number] Self-pay Unknown [id number] 2.16.8 40.1.802712.3.579.2.355 Social History Date Type Detail Facility Start: 08-12-[address] [facility] Occasional tobacco smoker [facility] History of tobacco use Cigarette Smoker [facility] History of tobacco use Passive smoker [facility] Start: 08-12-2023 Tobacco use and exposure Smokeless t obacco non-user [facility] Start: 10-11-2023 End: 03-09-2024 Alcoholic beverage intake [facility]-drinker (finding) [facility] Start: 10-11-2023 End: 03-09-2024 History of Social function [facility] Start: 10-11-2023 End: 03-09-2024 Tobacco use panel [facility] Start: 07-25-2022 Tobacco Comment Thinking about quitt ing [facility] Start: 1985 Sex assigned at Not on file [facility] History of Present illness Narrative 03-09-2024 Sonya Villa NP - 03/09/2024 3:11 PM Mejia Villa NP - 03/09/2024 3:10 PM Mejia Villa, BEATRIZ - 03/09/2024 2:30 PM EST Note Date & Type Note Facility 03-09-2024 History of Presen t illness Narrative Associated Problem(s): Primary hypertension (CMS/HCC) Currently taking hydrochlorothiazide 12.5mg Checks BP at home; Averages are significantly above goal- 170's SBP. Will add Losartan to hydrochlorothiazide today. Denies orthostatic changes, dizziness, cough, shortness of breath, swelling in extremities. Continue current regimen. Given BP log, advised pt to record BP and bring log back with them to next visit. Associated Problem(s): Acute paronychia of right thumb R thumb cracked one week ago/ Developed pain and tenderness 2 days ago. Thumb tender and firm, without abscess at this time. Will treat with doxycycline and mupirocin. Encouraged warm water soaks and mupirocin application 2-3 times per day X5 days. Pt scheduled for wellness on Wednesday. Will re-evaluate at OV. Images from the original note were not included. Subjective Patient ID: Alesha Kenney is a 38 y.o. female who presents for cracked skin (Right thumb, cracked skin, sore to touch). HPI R thumb cracked one week ago/ Developed pain and tenderness 2 days ago. HTN: Currently taking hydrochlorothiazide 12.5mg Checks BP at home; Averages are significantly above goal- 170's SBP. Will add Losartan to hydrochlorothiazide today. Denies orthostatic changes, dizziness, cough, shortness of breath, swelling in extremities. Continue current regimen. Given BP log, advised pt to record BP and bring log back with them to next visit. Review of Systems Constitutional: Negative for activity change, appetite change, chills, diaphoresis, fatigue, fever and unexpected weight change. HENT: Negative for congestion, ear pain, rhinorrhea, sinus pressure, sinus pain, sneezing, sore throat, trouble swallowing and voice change. Eyes: Negative for visual disturbance. Respiratory: Negative for cough, chest tightness, shortness of breath and wheezing. Cardiovascular: Negative for chest pain, palpitations and leg swelling. Gastrointestinal: Negative for abdominal distention, abdominal pain, blood in stool, constipation, diarrhea and vomiting. Genitourinary: Negative for decreased urine volume, dysuria, flank pain, frequency, hematuria and urgency. Musculoskeletal: Negative for arthralgias, gait problem, joint swelling and myalgias. Skin: Positive for wound. Negative for rash. Neurological: Negative for dizziness, tremors, syncope, weakness, light-headedness and headaches. Psychiatric/Behavioral: Negative for decreased concentration and suicidal ideas. The patient is not nervous/anxious. Hematological: Does not bruise/bleed easily. Endocrine: Negative for cold intolerance, heat intolerance, polydipsia, polyphagia and polyuria. Objective Physical Exam Vitals reviewed. Constitutional: Appearance: Normal appearance. HENT: Right Ear: Tympanic membrane normal. Left Ear: Tympanic membrane normal. Nose: Nose normal. Mouth/Throat: Mouth: Mucous membranes are moist. Pharynx: Oropharynx is clear. Eyes: Pupils: Pupils are equal, round, and reactive to light. Cardiovascular: Rate and Rhythm: Normal rate and regular rhythm. Pulses: Normal pulses. Heart sounds: Normal heart sounds. Pulmonary: Effort: Pulmonary effort is normal. Breath sounds: Normal breath sounds. Abdominal: General: Abdomen is flat. Bowel sounds are normal. Palpations: Abdomen is soft. Musculoskeletal: General: Normal range of motion. Skin: Capillary Refill: Capillary refill takes less than 2 seconds. Comments: R thumb paronychia without abscess. Firm and tender to touch. Neurological: Mental Status: She is alert and oriented to person, place, and time. Assessment/Plan Problem List Items Addressed This Visit Acute paronychia of right thumb - Primary R thumb cracked one week ago/ Developed pain and tenderness 2 days ago. Thumb tender and firm, without abscess at this time. Will treat with doxycycline and mupirocin. Encouraged warm water soaks and mupirocin application 2-3 times per day X5 days. Pt scheduled for wellness on Wednesday. Will re-evaluate at OV. Relevant Medications doxycycline (Doryx) 100 MG EC tablet Mupirocin 2 % kit Primary hypertension (CMS/HCC) Currently taking hydrochlorothiazide 12.5mg Checks BP at home; Averages are significantly above goal- 170's SBP. Will add Losartan to hydrochlorothiazide today. Denies orthostatic changes, dizziness, cough, shortness of breath, swelling in extremities. Continue current regimen. Given BP log, advised pt to record BP and bring log back with them to next visit. Relevant Medications losartan (Cozaar) 25 MG tablet Other Relevant Orders Comprehensive metabolic panel documented in this encounter [facility] Healthcare Instructions 03-09-2024 Patient Instructions Note Date & Type Note Facility 03-09-2024 Instructions Soyna Villa NP - 03/09/2024 2:30 PM EST Start and finish antibiotic as directed. Do warm water soaks 2-3 times daily. Apply Mupirocin ointment as directed after each soak, Keep area clean and dry. Redness, swelling, drainage, fever, GO TO ER! Your blood pressure is TOO HIGH in the office today. Check your blood pressure at home ONE times per DAY, preferably in the afternoon. Goal <130/90. Record results in blood pressure log. Bring back with you to your next visit. documented in this encounter [facility] History of Present illness Narrative 11-23-2023 Sonya Villa NP - 11/23/2023 9:41 PM Ricardo Villa NP - 11/23/2023 9:38 PM Ricardo Villa NP - 11/23/2023 4:11 PM Ricardo Villa NP - 11/23/2023 3:30 PM EDT Note Date & Type Note Facility 11-23-2023 History of Presen t illness Narrative Associated Problem(s): Opioid use disorder in remission Follows with [facility]. Was seeing Hope Jimenez. Currently takes Suboxone daily. Associated Problem(s): Encounter for wellness examination in adult I have reviewed Ht/Wt/BMI, I have reviewed recommended vaccines for patient's age, as well as all recommended screenings I have reviewed available care everywhere notes as well. I have recommended eating a balanced diet, as well as activity as chronic conditions allow It is recommended that the patient have a yearly eye exam, as well as twice a year dental exams Fu in this office for wellness on a yearly basis Diet: Eat three meals per day. Breakfast, lunch, and dinner. Avoid snacking. Avoid eating after 5/6 pm. Daily protein GOAL 35% of your intake; 30g per meal. Daily calorie GOAL 1,800-2,000 per day. Consider tracking your food intake on MyFtinessPal or LoseIt Water: Increase water intake; GOAL 64-80oz of water per day. Exercise: Increase activity. GOAL 30 minutes, 5 days per week. START SLOW. Start with 5 minutes, 5 days per week. Then increase to 10 days, 5 days per week. Continue to increase until you reach the goal. Increase steps; GOAL 10,000 steps per day. Be sure to get adequate sleep; GOAL 6-8 hours of sleep per night. Associated Problem(s): Morbid obesity (CMS/HCC) On Adipex since June Starting weight was 323 Weight today: 308 15 pound weight loss Goal is to lose enough weight to qualify for gastric sleeve and to quit smoking. Elevated BP: BP is elevated today in office, pt reports has been running consistently in 140's with or without taking Adipex. Stop adipex for now. Initiate hydrochlorothiazide 12.5mg. Discussed with patient their BMI (actual, verses recommended). We have also discussed lifestyle modifications: attempts to perform physical activity as chronic conditions allow, also to monitor dietary intake: increasing protein/fruits/veggies and lowering carb intake (unless contraindicated). Limit sodas, juices, and sugary drinks. Also discussed oral medications that can be utilized for weight loss, as well as surgical options for weight loss. Images from the original note were not included. Subjective Patient ID: Alesha Kenney is a 38 y.o. female who [facility] Follow[facility] HPI 10 months post Is not breast feeding; On Adipex since June Starting weight was 323 Weight today: 308 15 pound weight loss Denies: Chest pain Shortness of breath Dizziness Blurry vision Edema to extremities. Headaches Goal is to lose enough weight to qualify for gastric sleeve and to quit smoking. Has hx of gestational DM; Has not had A1C checked in some time. Will check today. Elevated BP: BP is elevated today in office, pt reports has been running consistently in 140's with or without taking Adipex. Stop adipex for now. Initiate hydrochlorothiazide 12.5mg. Review of Systems Constitutional: Negative for activity change, appetite change, chills, diaphoresis, fatigue, fever and unexpected weight change. HENT: Negative for congestion, ear pain, rhinorrhea, sinus pressure, sinus pain, sneezing, sore throat, trouble swallowing and voice change. Eyes: Negative for visual disturbance. Respiratory: Negative for cough, chest tightness, shortness of breath and wheezing. Cardiovascular: Negative for chest pain, palpitations and leg swelling. Gastrointestinal: Negative for abdominal distention, abdominal pain, blood in stool, constipation, diarrhea and vomiting. Genitourinary: Negative for decreased urine volume, dysuria, flank pain, frequency, hematuria and urgency. Musculoskeletal: Negative for arthralgias, gait problem, joint swelling and myalgias. Skin: Positive for rash. Scattered areas of erythema and scabs on anterior aspect of feet. Pt reports itching associated on the soles of feet as well. Neurological: Negative for dizziness, tremors, syncope, weakness, light-headedness and headaches. Psychiatric/Behavioral: Negative for decreased concentration and suicidal ideas. The patient is not nervous/anxious. Hematological: Does not bruise/bleed easily. Endocrine: Negative for cold intolerance, heat intolerance, polydipsia, polyphagia and polyuria. Objective Physical Exam Vitals reviewed. Constitutional: Appearance: Normal appearance. HENT: Head: Normocephalic and atraumatic. Right Ear: Tympanic membrane normal. Left Ear: Tympanic membrane normal. Nose: Nose normal. Mouth/Throat: Mouth: Mucous membranes are moist. Pharynx: Oropharynx is clear. Eyes: Pupils: Pupils are equal, round, and reactive to light. Cardiovascular: Rate and Rhythm: Normal rate and regular rhythm. Pulses: Normal pulses. Heart sounds: Normal heart sounds. Pulmonary: Effort: Pulmonary effort is normal. Breath sounds: Normal breath sounds. Abdominal: General: Abdomen is flat. Bowel sounds are normal. Palpations: Abdomen is soft. Musculoskeletal: General: Normal range of motion. Cervical back: Normal range of motion. Feet: Comments: Scattered areas of erythema and scabs on anterior aspect of feet. Skin: General: Skin is warm and dry. Capillary Refill: Capillary refill takes less than 2 seconds. Neurological: General: No focal deficit present. Mental Status: She is alert and oriented to person, place, and time. Psychiatric: Mood and Affect: Mood normal. Behavior: Behavior normal. Assessment/Plan Problem List Items Addressed This Visit Morbid obesity (CMS/HCC) On Adipex since June Starting weight was 323 Weight today: 308 15 pound weight loss Goal is to lose enough weight to qualify for gastric sleeve and to quit smoking. Elevated BP: BP is elevated today in office, pt reports has been running consistently in 140's with or without taking Adipex. Stop adipex for now. Initiate hydrochlorothiazide 12.5mg. Discussed with patient their BMI (actual, verses recommended). We have also discussed lifestyle modifications: attempts to perform physical activity as chronic conditions allow, also to monitor dietary intake: increasing protein/fruits/veggies and lowering carb intake (unless contraindicated). Limit sodas, juices, and sugary drinks. Also discussed oral medications that can be utilized for weight loss, as well as surgical options for weight loss. Encounter for wellness examination in adult I have reviewed Ht/Wt/BMI, I have reviewed recommended vaccines for patient's age, as well as all recommended screenings I have reviewed available care everywhere notes as well. I have recommended eating a balanced diet, as well as activity as chronic conditions allow It is recommended that the patient have a yearly eye exam, as well as twice a year dental exams Fu in this office for wellness on a yearly basis Diet: Eat three meals per day. Breakfast, lunch, and dinner. Avoid snacking. Avoid eating after 5/6 pm. Daily protein GOAL 35% of your intake; 30g per meal. Daily calorie GOAL 1,800-2,000 per day. Consider tracking your food intake on MyFtinessPal or LoseIt Water: Increase water intake; GOAL 64-80oz of water per day. Exercise: Increase activity. GOAL 30 minutes, 5 days per week. START SLOW. Start with 5 minutes, 5 days per week. Then increase to 10 days, 5 days per week. Continue to increase until you reach the goal. Increase steps; GOAL 10,000 steps per day. Be sure to get adequate sleep; GOAL 6-8 hours of sleep per night. Relevant Orders TSH W/REFLEX TO FT4 Lipid panel Hemoglobin A1c Comprehensive metabolic panel CBC and differential Blood pressure elevated without history of HTN - Primary Relevant Medications hydroCHLOROthiazide (HYDRODiuril) 12.5 MG tablet Other Relevant Orders TSH W/REFLEX TO FT4 Comprehensive metabolic panel CBC and differential Other Visit Diagnoses Tinea pedis of both feet Relevant Medications clotrimazole (Lotrimin) 1 % cream Opioid abuse, in remission ([facility]) documented in this encounter [facility] Healthcare Instructions 11-23-2023 Patient Instructions Note Date & Type Note Facility 11-23-2023 Instructions Sonya Villa NP - 11/23/2023 3:30 PM EDT Your blood pressure is TOO HIGH in the office today. Check your blood pressure at home once per day, preferably in the afternoon. Goal <130/90. Record results in blood pressure log. Bring back with you to your next visit. FASTING labs ordered. Nothing to eat or drink for 12 hours prior to blood draw. Water and black coffee ok. documented in this encounter [facility] History of Present illness Narrative 10-11-2023 Sonya Villa NP - 10/11/2023 4:04 PM EDMinh Villa NP - 10/11/2023 3:30 PM EDT Note Date & Type Note Facility 10-11-2023 History of Presen t illness Narrative Associated Problem(s): Encounter for weight management Pt meets qualifications of [facility] 4730-12-19 for weight loss. BMI>30 or >27 with comorbid conditions. Blood pressure WNL. Notify office with any symptoms of chest pain, dyspnea, heart palpitations, or any anxiety symptoms. F/U in 4 weeks to document weight loss. Increase physical activity as tolerated, and lower caloric intake to 1600 calories daily if no contraindications. Diet: Eat three meals per day. Breakfast, lunch, and dinner. Avoid snacking. Avoid eating after 5/6 pm. Daily protein GOAL 35% of your intake; 30g per meal. Daily calorie GOAL 1,800-2,000 per day. Consider tracking your food intake on MyFtinessPal or LoseIt Water: Increase water intake; GOAL 64-80oz of water per day. Exercise: Increase activity. GOAL 30 minutes, 5 days per week. START SLOW. Start with 5 minutes, 5 days per week. Then increase to 10 days, 5 days per week. Continue to increase until you reach the goal. Increase steps; GOAL 10,000 steps per day. Be sure to get adequate sleep; GOAL 6-8 hours of sleep per night. Images from the original note were not included. Subjective Patient ID: Alesha Kenney is a 38 y.o. female who presents for Obesity. HPI 9 months post Is not breast feeding Was on Adipex for 3 months May, June, July; Missed August appointment; Starting weight was 323 Weight today: 313 10 pound weight loss Will restart and trial today. Denies: Chest pain Shortness of breath Dizziness Blurry vision Edema to extremities. Goal is to lose enough weight to qualify for gastric sleeve and to quit smoking. Pt meets qualifications of [facility] 4730-12-19 for weight loss. BMI>30 or >27 with comorbid conditions. Blood pressure WNL. Notify office with any symptoms of chest pain, dyspnea, heart palpitations, or any anxiety symptoms. F/U in 4 weeks to document weight loss. Increase physical activity as tolerated, and lower caloric intake to 1600 calories daily if no contraindications Review of Systems Constitutional: Negative for activity change, appetite change, chills, diaphoresis, fatigue, fever and unexpected weight change. HENT: Negative for congestion, ear pain, rhinorrhea, sinus pressure, sinus pain, sneezing, sore throat, trouble swallowing and voice change. Eyes: Negative for visual disturbance. Respiratory: Negative for cough, chest tightness, shortness of breath and wheezing. Cardiovascular: Negative for chest pain, palpitations and leg swelling. Gastrointestinal: Negative for abdominal distention, abdominal pain, blood in stool, constipation, diarrhea and vomiting. Genitourinary: Negative for decreased urine volume, dysuria, flank pain, frequency, hematuria and urgency. Musculoskeletal: Negative for arthralgias, gait problem, joint swelling and myalgias. Skin: Negative for rash. Neurological: Negative for dizziness, tremors, syncope, weakness, light-headedness and headaches. Psychiatric/Behavioral: Negative for decreased concentration and suicidal ideas. The patient is not nervous/anxious. Hematological: Does not bruise/bleed easily. Endocrine: Negative for cold intolerance, heat intolerance, polydipsia, polyphagia and polyuria. Objective Physical Exam Vitals reviewed. Constitutional: Appearance: Normal appearance. HENT: Head: Normocephalic and atraumatic. Right Ear: Tympanic membrane normal. Left Ear: Tympanic membrane normal. Nose: Nose normal. Mouth/Throat: Mouth: Mucous membranes are moist. Pharynx: Oropharynx is clear. Eyes: Pupils: Pupils are equal, round, and reactive to light. Cardiovascular: Rate and Rhythm: Normal rate and regular rhythm. Pulses: Normal pulses. Heart sounds: Normal heart sounds. Pulmonary: Effort: Pulmonary effort is normal. Breath sounds: Normal breath sounds. Abdominal: General: Abdomen is flat. Bowel sounds are normal. Palpations: Abdomen is soft. Musculoskeletal: General: Normal range of motion. Cervical back: Normal range of motion. Skin: General: Skin is warm and dry. Capillary Refill: Capillary refill takes less than 2 seconds. Neurological: General: No focal deficit present. Mental Status: She is alert and oriented to person, place, and time. Psychiatric: Mood and Affect: Mood normal. Behavior: Behavior normal. Assessment/Plan Problem List Items Addressed This Visit Encounter for weight management - Primary Pt meets qualifications of [facility] 4730-12-19 for weight loss. BMI>30 or >27 with comorbid conditions. Blood pressure WNL. Notify office with any symptoms of chest pain, dyspnea, heart palpitations, or any anxiety symptoms. F/U in 4 weeks to document weight loss. Increase physical activity as tolerated, and lower caloric intake to 1600 calories daily if no contraindications. Diet: Eat three meals per day. Breakfast, lunch, and dinner. Avoid snacking. Avoid eating after 5/6 pm. Daily protein GOAL 35% of your intake; 30g per meal. Daily calorie GOAL 1,800-2,000 per day. Consider tracking your food intake on MyFtinessPal or LoseIt Water: Increase water intake; GOAL 64-80oz of water per day. Exercise: Increase activity. GOAL 30 minutes, 5 days per week. START SLOW. Start with 5 minutes, 5 days per week. Then increase to 10 days, 5 days per week. Continue to increase until you reach the goal. Increase steps; GOAL 10,000 steps per day. Be sure to get adequate sleep; GOAL 6-8 hours of sleep per night. documented in this encounter [facility] Healthcare Instructions 10-11-2023 Patient Instructions Note Date & Type Note Facility 10-11-2023 Instructions Sonya Villa NP - 10/11/2023 3:30 PM EDT Start Phentermine Notify office with any symptoms of chest pain, dyspnea, heart palpitations, or any anxiety symptoms. F/U in 4 weeks to document weight loss. Increase physical activity as tolerated, and lower caloric intake to 1600 calories daily if no contraindications Diet: Eat three meals per day. Breakfast, lunch, and dinner. Avoid snacking. Avoid eating after 5/6 pm. Daily protein GOAL 35% of your intake; 30g per meal. Daily calorie GOAL 1,800-2,000 per day. Consider tracking your food intake on MyMOBi-LEARNinessPal or LoseIt Water: Increase water intake; GOAL 64-80oz of water per day. Exercise: Increase activity. GOAL 30 minutes, 5 days per week. START SLOW. Start with 5 minutes, 5 days per week. Then increase to 10 days, 5 days per week. Continue to increase until you reach the goal. Increase steps; GOAL 10,000 steps per day. Be sure to get adequate sleep; GOAL 6-8 hours of sleep per night. Call about Acupuncture!!! documented in this encounter [facility] Evaluation note Note Date & Type Note Facility Evaluation note Diagnosis Blood pressure elevated without history of HTN- Primary Morbid obesity ([facility]) Morbid obesity Encounter for wellness examination in adult Tinea pedis of both feet Opioid abuse, in remission ([facility]) Opioid abuse, in remission documented in this encounter [facility] Evaluation note Note Date & Type Note Facility Evaluation note Diagnosis URTI (acute upper respiratory infection)- Primary Acute upper respiratory infections of unspecified site Wheezing-associated respiratory infection Blood pressure elevated without history of HTN- Primary Acute cough Chronic allergic rhinitis Shoulder blade pain- Primary Pain in joint, shoulder region Other chest pain Anemia, unspecified type Lesion of left external ear- Primary Rash and nonspecific skin eruption- Primary Rash and other nonspecific skin eruption Morbid obesity (CMS/HCC) Morbid obesity Morbid obesity (CMS/HCC)- Primary Morbid obesity Morbid obesity (CMS/HCC) Morbid obesity Morbid obesity (CMS/HCC)- Primary Morbid obesity Ingrown fingernail Skin lesion Unspecified disorder of skin and subcutaneous tissue Encounter for weight management- Primary Blood pressure elevated without history of HTN- Primary Morbid obesity (CMS/HCC) Morbid obesity Encounter for wellness examination in adult Tinea pedis of both feet Opioid abuse, in remission (CMS/HCC) Opioid abuse, in remission Acute non-recurrent frontal sinusitis- Primary documented in this encounter [facility] Evaluation note Note Date & Type Note Facility Evaluation note Diagnosis Encounter for weight management- Primary documented in this encounter [facility] Evaluation note Note Date & Type Note Facility Evaluation note Diagnosis URTI (acute upper respiratory infection)- Primary Acute upper respiratory infections of unspecified site Wheezing-associated respiratory infection Blood pressure elevated without history of HTN- Primary Acute cough Chronic allergic rhinitis Shoulder blade pain- Primary Pain in joint, shoulder region Other chest pain Anemia, unspecified type Lesion of left external ear- Primary Rash and nonspecific skin eruption- Primary Rash and other nonspecific skin eruption Morbid obesity (CMS/HCC) Morbid obesity Morbid obesity (CMS/HCC)- Primary Morbid obesity Morbid obesity (CMS/HCC) Morbid obesity Morbid obesity (CMS/HCC)- Primary Morbid obesity Ingrown fingernail Skin lesion Unspecified disorder of skin and subcutaneous tissue Encounter for weight management- Primary Blood pressure elevated without history of HTN- Primary Morbid obesity (CMS/HCC) Morbid obesity Encounter for wellness examination in adult Tinea pedis of both feet Opioid abuse, in remission (CMS/HCC) Opioid abuse, in remission Acute paronychia of right thumb- Primary Primary hypertension (CMS/HCC) Unspecified essential hypertension documented in this encounter [facility] Summary Purpose Family History No Family History [...] section and content) DATE CREATED AUTHOR 02/04/2018 [facility] DATE CREATED AUTHOR AUTHOR'S ORGANIZ ATION 02/19/2018 [facility] DATE CREATED AUTHOR AUTHOR'S ORGANIZ ATION 05/02/2018 [facility] DATE CREATED AUTHOR AUTHOR'S ORGANIZ ATION 03/15/2021 [facility] DATE CREATED AUTHOR AUTHOR'S ORGANIZ ATION 06/29/2022 [facility] DATE CREATED AUTHOR AUTHOR'S ORGANIZ ATION 07/25/2022 [facility] DATE CREATED AUTHOR AUTHOR'S ORGANIZ ATION 11/25/2023 [facility] d[facility] Specialists [employer] Care Teams (unrecognized sec tion and content) Ccie Relationship Specialty Start Date End Date Navarro Haider MD [address] [place] [phone] PCP - General Family Medicine 09/15/23 Sonya Villa NP [address] [place] [phone] Nurse Practitioner Family Medicine 09/15/23 Ccie Relationship Specialty Start Date End Date Navarro Haider MD [address] [place] [phone] PCP - General Family Medicine 09/15/23 Sonya Villa NP [address] [place] [phone] Nurse Practitioner Family Medicine 09/15/23 Ccie Relationship Specialty Start Date End Date Navarro Haider MD [address] [place] [phone] PCP - General Family Medicine 09/15/23 Sonya Villa NP [address] [place] [phone] Nurse Practitioner Family Medicine 09/15/23 Ccie Relationship Specialty Start Date End Date Navarro Haider MD [address] [place] [phone] PCP - General Family Medicine 09/15/23 Sonya Villa NP [address] [place] [phone] Nurse Practitioner Family Medicine 09/15/23 Ccie Relationship Specialty Start Date End Date Navarro Haider MD [address] [place] [phone] PCP - General Family Medicine 09/15/23 Sonya Villa NP [address] [place] [phone] Nurse Practitioner Family Medicine 09/15/23 Ccie Relationship Specialty Start Date End Date Navarro Haider MD [address] [place] [phone] PCP - General Family Medicine 09/15/23 Sonya Villa NP [address] [place] [phone] Nurse Practitioner Family Medicine 09/15/23 Reason for Visit (unrecogniz ed section and content) Reason Comments Follow-up From addipex Reason Comments Obesity Reason Comments cracked skin Right thumb, cracked skin, sore to touch FOR RECORDS PERTAINING TO PATIENTS WHO ARE [...] BE BASED ON THE PRIMARY CLINICAL RECORDS. [facility] [employer] [facility]. provides no warranty or guarantee of the accuracy or completeness of [phone] in [phone] [id number]
[2024-03-10 17:18] LABS: Basophils Absolute Auto 0.1 10^3/uL (0.0-0.1); Basophils Percent Auto 1.5 % (0.2-2.0); Eosinophils Absolute Auto 0.2 10^3/uL (0.0-0.7); Eosinophils Percent Auto 6.4 % (0.9-7.0); Hematocrit 36.9 % (36.0-48.0); Hemoglobin 12.2 g/dL (12.0-16.0); Immature Granulocytes Abs Auto 0.01 10^3/uL (0.00-0.03); Immature Granulocytes Pct Auto 0.3 % (0.0-0.5); Lymphocytes Absolute Auto 0.8 10^3/uL (1.2-3.8); Lymphocytes Percent Auto 21.8 % (20.5-60.0); Mean Corpuscular HGB Conc 33.1 g/dL (29.9-35.2); Mean Corpuscular Hemoglobin 29.6 pg (26.7-34.0); Mean Corpuscular Volume 89.6 fL (81.0-99.0); Mean Platelet Volume 10.3 fL (9.5-13.5); Monocytes Absolute Auto 0.3 10^3/uL (0.3-0.8); Monocytes Percent Auto 9.6 % (1.7-12.0); Neutrophils Absolute Auto 2.1 10^3/uL (1.4-6.5); Neutrophils Percent Auto 60.4 % (43.0-75.0); Platelet Count 139 10^3/uL (150-450); Red Blood Count 4.12 10^6/uL (4.20-5.40); Red Cell Distribution Width 13.2 % (11.0-15.0); White Blood Count 3.4 10^3/uL (4.0-11.0)
[2024-03-10 17:36] LABS: Estimated Average Glucose 103 mg/dL; Glycohemoglobin A1C 5.2 % (4.5-6.2)
[2024-03-10 17:47] LABS: Alanine Aminotransferase 23 U/L (14-59); Albumin Globulin Ratio 0.9; Albumin Level 3.4 g/dL (3.4-5.0); Alkaline Phosphatase 49 U/L (46-116); Anion Gap 8.6; Aspartate Amino Transferase 20 U/L (15-37); BUN Creatinine Ratio 11.6; Bilirubin Total 0.4 mg/dL (0.2-1.0); Calcium 8.4 mg/dL (8.5-10.1); Carbon Dioxide 30.3 mmol/L (21.0-32.0); Chloride 102 mmol/L (98-107); Chol HDL Ratio 3.1; Cholesterol 135 mg/dL (<=200); Estimated GFR (African America >60 (>=60 mL/min/1.73m^2); Estimated GFR (Non-African Ame >60 (>=60 mL/min/1.73m^2); Globulin 3.8 g/dL; Glucose 106 mg/dL (74-106); HDL Cholesterol 44 mg/dL (40-60); LDL Cholesterol Calculated 77.8 mg/dL; Potassium 3.9 mmol/L (3.5-5.1); Sodium 137 mmol/L (136-145); TSH W/ REFLEX FT4 2.281 uIU/mL (0.358-3.740); Total Protein 7.2 g/dL (6.4-8.2); Triglycerides 66 mg/dL (<=150); VLDL CHOLESTEROL 13.2 mg/dL
== END 2024-03-10 16:46 | disposition home or self-care (01) ==
LOC: LAB 16:45
DX: Z00.00 Encounter for general adult medical examination without abnormal findings (principal); R03.0 Elevated blood-pressure reading, without diagnosis of hypertension
CPT/HCPCS: 36415; 80053; 80061; 83036; 84443; 85025

== ENCOUNTER 2024-03-11 12:52 | Emergency (ER) | payer MEDICAID, SELFPAY ==
[2024-03-11 12:57] VITALS: BP 151/97; PULSE 96; TEMP 36.9; O2SAT 100; BMI 48.2
--- OUTSIDE RECORDS SUMMARY | 2024-03-11 13:00 | XMS_ITS | CCD ---
Author Organization [facility] Care Team Providers Care Metal Expediter Name Role Phone IVAN FERNANDEZ Unavailable Unavailable [...] Unavailable Navarro Haider MD Primary Care Provider [phone] Sonya Villa NP Unavailable [phone] Allergies Allergy Classification Reported Allergen(s) Allergy Type Date of Onset Reaction(s) Facility (10 sources) Acetaminophen / HYDROcodone; Translations: [HYDROCODONE-ACETAMI NOPHEN] Drug Allergy 10-21-19 13 Unknown [facility] Repository (11 sources) traMADol; Translations: [TRAMADOL] Drug Allergy 10-21-19 13 Unknown [facility] Repository (1 source) Acetaminophen / HYDROcodone Drug Allergy 08-28-19 16 [facility] Repository (1 source) Codeine Drug Allergy 05-08-19 09 [facility] Repository (1 source) Penicillin Drug Allergy 06-15-19 20 [facility] Repository (9 sources) Codeine Drug Allergy 07-29-19 23 [facility] Work Phone: (9 sources) Penicillin G Drug Allergy 12-30-19 23 [facility] (9 sources) Penicillins Propensity to adverse reactions 07-29-19 23 [facility] (9 sources) Sulfamethoxazole / Trimethoprim Drug Allergy 08-12-19 24 [facility] Work Phone: (9 sources) Vancomycin Drug Allergy 12-27-19 18 Anaphylaxis [facility] Medications Current Medications Medication Drug [...] Liliane Devries PA-C 07/18/22 11:45 EDT Normal [facility] Otolaryngology Office/Clinic Noteon 07-06-2022 Otolaryngology Office/Clinic [...] g, 0 Refill(s), 07/20/22 15:17:00 EDT, Pharmacy: [facility]/pharmacy #[id number] Medical Decision Making Chronic conditions NOT treated [...] Oral Jitendra (more content not included)... Normal [facility] US PREG TVon 06-26-2022 US PREG [...] RODRIGO ACOSTA Date: 2022-06-26 09:18 Normal [facility] Covid-19 PCR ([facility])on SARS-CoV-2 (COVID-19) RNA JANET+probe Ql (Unsp spec) Not detected Normal NOT DETECTED [facility] Comment on above: Result Comment: This test is not yet approved or cleared by the [place] FDA. When there are no FDA-approved or cleared tests available, and other criteria are met, FDA can make tests available under an emergency access mechanism called an Emergency Use Authorization (EUA). The EUA for this test is supported by the [employer] of Health and Human Service's (HHS's) declaration [...] consistent with SARS-CoV-2. Performed By: #### C [facility] #### [facility] [address] [place] [address] Dr. Ja Cohen INFLUENZA A AND B AGon 06-16 INFLUANEGH SEE BELOW Normal [facility] Comment on above: Result Comment: Nega tive for Flu A protein angiten. Infection due to Flu A cannot be ruled out. Flu A angiten in the sample may be below the detection limit of the test. Performed By: #### I NFLUAB #### [facility] [address] [place] [address] Dr. Ja Cohen INFLUBNEGH SEE BELOW Normal [facility] Comment on above: Result Comment: Nega tive for Flu B protein antigen. Infection due to Flu B cannot be ruled out. Flu B antigen in the sample may be below the detection limit of the test. Performed By: #### I NFLUAB #### [facility] [address] [place] [address] Dr. Ja Cohen INFLUENZA A AG Negative Normal NEGATIVE SEE COMMENT [facility] Comment on above: Performed By: #### I NFLUAB #### [facility] [address] [place] [address] Dr. Ja Cohen INFLUENZA B AG Negative Normal NEGATIVE SEE COMMENT [facility] Comment on above: Performed By: #### I NFLUAB #### [facility] [address] [place] [address] Dr. Ja Cohen SYMPTOMATIC COVID-19 ANTIGEN on 06-16-2022 EUA Statement SEE BELOW Normal [facility] Comment on above: Result Comment: This test [...] sooner. Performed By: #### C VDAGS #### [facility] [address] [place] [address] Dr. Ja Cohen SARS-CoV-2 (COVID-19) RNA JANET+probe Ql (Unsp spec) Negative Normal NEGATIVE [facility] Comment on above: Performed By: #### C VDAGS #### [facility] [address] [place] [address] Dr. Ja Cohen PREG QUANT HCGon 06-11-2022 HCG QUANT 67478 mIU/mL Normal [facility] Comment on above: Performed By: #### P REGQNT #### [facility] [address] [place] [address] Dr. Ja Cohen HCG RANGE SEE BELOW Normal [facility] Comment on above: Result Comment: 5-50 0.2-1 WEEK 50-500 1-2 WEEKS 100-5,000 2-3 WEEKS 500-10,000 3-4 WEEKS 1,000-50,000 4-5 WEEKS 10,000-100,000 5-6 WEEKS 15,000-200,000 6-8 WEEKS 10,000-100,000 2-3 MONTHS Performed By: #### P REGQNT #### [facility] [address] [place] [address] Dr. Ja Cohen ECHOCARDIO M/2D COMPLETEon 0 08-11-2021 ECHOCARDIO M/2D COMPLETE Patient: ALESHA KENNEY Exam Date: 08/11/2021 : 1985 Gender:F Ordering : SHAIKH Addy GARLAND . Admission #: [id number] Family : Order #: [id number] CLICK HERE TO VIEW EXAM ECHOCARDIOGRAM REPORT [...] Area(A4C): 23.40 cm2 Left Atrium Systolic Volume(A2C): 70702 mm3 Left Atrium Systolic Volume(A4C): 08385 mm3 Mitral Valve MV E to A Ratio: 1.90 MV Mean Gradient: 1 mm[Hg] Deceleration [place]: 6410 mm/s2 Mitral Valve A-Wave Peak Velocity: [...] Mederos M.D. on 08/11/2021 at 12:50 Normal [facility] AFB Culture with Stainon AFB Stain SEE NOTE Normal [facility] Comment on above: Result Comment: Nega tive for Acid Fast Bacteria.Less than 5 mL of specimen received.A minimum of 5 mL of sputum or fluid is recommendedfor recovery of acid fast bacilli (AFB).Volumes less than 5 mL are suboptimal and maycompromise recovery of AFB from culture. Final SEE NOTE Normal [facility] Comment on above: Result Comment: Cult ure negative for acid fast bacilliPerformed by [employer],[address] [facility] [place] [address] zsj.Natera, Artur Agustin MD - Lab. Director Preliminary SEE NOTE Normal [facility] Comment on above: Result Comment: Spec imen received and in progress.Positive culture results are called as soon as detected.Final report to follow in seven to eight weeksPerformed by [employer],[address] [facility] [place] [address] igo.Natera, Artur Agustin MD - Lab. Director AFB Stain SEE NOTE Normal [facility] Comment on above: Order Comment: CALL [facility] LC1W tel. [phone], called hgb to ramila oseguera rn [facility] 1w [facility] called to and read back by ramila oseguera on 1w, 12/27/201706:44, by RAYSHAWN Result Comment: Nega tive for Acid Fast Bacteria. Order Comment: Bronc h wash RULBronch Wash RUL Final SEE NOTE Normal [facility] Comment on above: Order Comment: Bronc h wash RULBronch Wash RUL Result Comment: Cult ure negative for acid fast bacilliPerformed by [employer],[address] [facility] [address] nyp.Natera, Artur Agustin MD - Lab. Director Order Comment: CALL [facility] LC1W tel. [phone], called hgb to ramila oseguera rn on 1w by scbHematology results called to and read back by ramila oseguera on 1w, 12/27/201706:44, by [facility] Basic Metabolic Panelon 01-15 Anion gap 3 molar conc 10 mmol/L Normal 7-13 [facility] Calcium mass conc 8.7 mg/dL Normal 8.6-10.2 [facility] Chloride molar conc 105 mmol/L Normal 98-107 [facility] CO2 molar conc 26 mmol/L Normal 22-29 [facility] Creatinine mass conc 0.60 mg/dL Normal 0.50-0.90 [facility] GFR/1.73 sq M predicted among blacks MDRD vol rate/area (S/P/Bld) mL/min/{1.73_m2} Normal >60 [facility] Comment on above: Result Comment: >60 mL/min/1.73m2 EGFR, calc. for ages 18 and older using theMDRD formula (not corrected for weight), is valid for stablerenal function. GFR/1.73 sq M.predicted MDRD vol rate/area mL/min/{1.73_m2} Normal >60 [facility] Comment on above: Result Comment: >60 mL/min/1.73m2 EGFR, calc. for ages 18 and older using theMDRD formula (not corrected for weight), is valid for stablerenal function. Glucose mass conc 101 mg/dL Normal 74-109 [facility] Potassium molar conc 4.5 mmol/L Normal 3.5-5.1 [facility] Sodium molar conc 141 mmol/L Normal 132-144 [facility] Urea nitrogen mass conc 15 mg/dL Normal 6-20 [facility] CBC With Platelet No Differe ntialon 02-01-2018 Erythrocyte distribution width Auto Ratio (RBC) 23.7 % Critically high 11.5-14.5 [facility] Hematocrit Auto Volume Fraction (Bld) 28.0 % Low 37.0-47.0 [facility] Hemoglobin mass conc (Bld) 9.3 g/dL Low 12.0-16.0 [facility] MCH Auto Entitic mass (RBC) 29.1 pg Normal 27.0-31.3 [facility] MCHC Auto mass conc (RBC) 33.1 % Normal 33.0-37.0 [facility] MCV Auto Entitic volume (RBC) 87.9 fL Normal 82.0-100.0 [facility] Platelets Auto #/vol (Bld) 229 10*3/uL Normal 130-400 [facility] RBC Auto #/vol (Bld) 3.19 10*6/uL Low 4.20-5.40 [facility] WBC Auto #/vol (Bld) 2.7 10*3/uL Low 4.8-10.8 [facility] Culture, Funguson 01-29-2018 Final SEE NOTE Normal [facility] Comment on above: Order Comment: CALL [facility] LC1W tel. [phone], called hgb to ramila oseguera rn on 1w by scbHematology results called to and read back by ramila oseguera on 1w, 12/27/201706:44, by BONSA Result Comment: Cult ure negative for FungiPerformed by [employer],[address] [place] [id number] mfd.Natera, Artur Agustin MD - Lab. Director Basic Metabolic Panelon 01-15 Anion gap 3 molar conc 9 mmol/L Normal 7-13 [facility] Calcium mass conc 9.5 mg/dL Normal 8.6-10.2 [facility] Chloride molar conc 106 mmol/L Normal 98-107 [facility] CO2 molar conc 27 mmol/L Normal 22-29 [facility] Creatinine mass conc 0.71 mg/dL Normal 0.50-0.90 [facility] GFR/1.73 sq M predicted among blacks MDRD vol rate/area (S/P/Bld) mL/min/{1.73_m2} Normal >60 [facility] Comment on above: Result Comment: >60 mL/min/1.73m2 EGFR, calc. for ages 18 and older using theMDRD formula (not corrected for weight), is valid for stablerenal function. GFR/1.73 sq M.predicted MDRD vol rate/area mL/min/{1.73_m2} Normal >60 [facility] Comment on above: Result Comment: >60 mL/min/1.73m2 EGFR, calc. for ages 18 and older using theMDRD formula (not corrected for weight), is valid for stablerenal function. Glucose mass conc 93 mg/dL Normal 74-109 [facility] Potassium molar conc 4.7 mmol/L Normal 3.5-5.1 [facility] Sodium molar conc 142 mmol/L Normal 132-144 [facility] Urea nitrogen mass conc 14 mg/dL Normal 6-20 [facility] CBC With Platelet and Differ entialon 01-25-2018 Anisocytosis Auto Ql (Bld) PRESENT Normal [facility] Erythrocyte distribution width Auto Ratio (RBC) 28.7 % Critically high 11.5-14.5 [facility] Hematocrit Auto Volume Fraction (Bld) 24.9 % Low 37.0-47.0 [facility] Hemoglobin mass conc (Bld) 8.3 g/dL Low 12.0-16.0 [facility] MCH Auto Entitic mass (RBC) 28.2 pg Normal 27.0-31.3 [facility] MCHC Auto mass conc (RBC) 33.1 % Normal 33.0-37.0 [facility] MCV Auto Entitic volume (RBC) 85.0 fL Normal 82.0-100.0 [facility] Platelets Auto #/vol (Bld) 225 10*3/uL Normal 130-400 [facility] RBC Auto #/vol (Bld) 2.93 10*6/uL Low 4.20-5.40 [facility] Basophils Auto #/vol (Bld) 0.0 10*3/uL Normal 0.0-0.2 [facility] Basophils/100 WBC Auto (Bld) 1.0 % Normal [facility] Eosinophils Auto #/vol (Bld) 0.3 10*3/uL Normal 0.0-0.7 [facility] Eosinophils/100 WBC Auto (Bld) 5.4 % Normal [facility] Lymphocytes Auto #/vol (Bld) 1.7 10*3/uL Normal 1.0-4.8 [facility] Lymphocytes/100 WBC Auto (Bld) 37.1 % Normal [facility] Monocytes Auto #/vol (Bld) 0.2 10*3/uL Normal 0.2-0.8 [facility] Monocytes/100 WBC Auto (Bld) 5.1 % Normal [facility] Neutrophils Auto #/vol (Bld) 2.4 10*3/uL Normal 1.4-6.5 [facility] Neutrophils/100 WBC Auto (Bld) 51.4 % Normal [facility] WBC Auto #/vol (Bld) 4.7 10*3/uL Low 4.8-10.8 [facility] Culture, Funguson 01-24-2018 Final SEE NOTE Normal [facility] Comment on above: Order Comment: Bronc h Wash LLLBronch Wash LLL Result Comment: Cult ure POSITIVE forYeast not Cryptococcus speciesPerformed by [employer],[address] [facility] [place] [address] qpz.Natera, Artur Agustin MD - Lab. Director Preliminary SEE NOTE Normal [facility] Comment on above: Order Comment: Bronc h Wash LLLBronch Wash LLL Result Comment: Cult ure POSITIVE forYeast not Cryptococcus speciesPerformed by [employer],[address] [facility] [place] [address] kth.Natera, Artur Agustin MD - Lab. Director Basic Metabolic Panelon 12-0 Anion gap 3 molar conc 10 mmol/L Normal 7-13 [facility] Calcium mass conc 9.4 mg/dL Normal 8.6-10.2 [facility] Chloride molar conc 102 mmol/L Normal 98-107 [facility] CO2 molar conc 27 mmol/L Normal 22-29 [facility] Creatinine mass conc 0.70 mg/dL Normal 0.50-0.90 [facility] GFR/1.73 sq M predicted among blacks MDRD vol rate/area (S/P/Bld) mL/min/{1.73_m2} Normal >60 [facility] Comment on above: Result Comment: >60 mL/min/1.73m2 EGFR, calc. for ages 18 and older using theMDRD formula (not corrected for weight), is valid for stablerenal function. GFR/1.73 sq M.predicted MDRD vol rate/area mL/min/{1.73_m2} Normal >60 [facility] Comment on above: Result Comment: >60 mL/min/1.73m2 EGFR, calc. for ages 18 and older using theMDRD formula (not corrected for weight), is valid for stablerenal function. Glucose mass conc 73 mg/dL Low 74-109 [facility] Potassium molar conc 4.6 mmol/L Normal 3.5-5.1 [facility] Sodium molar conc 139 mmol/L Normal 132-144 [facility] Urea nitrogen mass conc 15 mg/dL Normal 6-20 [facility] CBC With Platelet No Differe ntialon 01-21-2018 Erythrocyte distribution width Auto Ratio (RBC) 24.9 % Critically high 11.5-14.5 [facility] Hematocrit Auto Volume Fraction (Bld) 24.4 % Low 37.0-47.0 [facility] Hemoglobin mass conc (Bld) 8.1 g/dL Low 12.0-16.0 [facility] MCH Auto Entitic mass (RBC) 28.3 pg Normal 27.0-31.3 [facility] MCHC Auto mass conc (RBC) 33.3 % Normal 33.0-37.0 [facility] MCV Auto Entitic volume (RBC) 85.0 fL Normal 82.0-100.0 [facility] Platelets Auto #/vol (Bld) 184 10*3/uL Normal 130-400 [facility] RBC Auto #/vol (Bld) 2.88 10*6/uL Low 4.20-5.40 [facility] WBC Auto #/vol (Bld) 4.6 10*3/uL Low 4.8-10.8 [facility] Basic Metabolic Panelon 11-2 Anion gap 3 molar conc 10 mmol/L Normal 7-13 [facility] Calcium mass conc 9.3 mg/dL Normal 8.6-10.2 [facility] Chloride molar conc 106 mmol/L Normal 98-107 [facility] CO2 molar conc 26 mmol/L Normal 22-29 [facility] Creatinine mass conc 0.93 mg/dL Critically high 0.50-0.90 [facility] GFR/1.73 sq M predicted among blacks MDRD vol rate/area (S/P/Bld) mL/min/{1.73_m2} Normal >60 [facility] Comment on above: Result Comment: >60 mL/min/1.73m2 EGFR, calc. for ages 18 and older using theMDRD formula (not corrected for weight), is valid for stablerenal function. GFR/1.73 sq M.predicted MDRD vol rate/area mL/min/{1.73_m2} Normal >60 [facility] Comment on above: Result Comment: >60 mL/min/1.73m2 EGFR, calc. for ages 18 and older using theMDRD formula (not corrected for weight), is valid for stablerenal function. Glucose mass conc 103 mg/dL Normal 74-109 [facility] Potassium molar conc 4.5 mmol/L Normal 3.5-5.1 [facility] Sodium molar conc 142 mmol/L Normal 132-144 [facility] Urea nitrogen mass conc 17 mg/dL Normal 6-20 [facility] CBC With Platelet and Differ entialon 01-11-2018 Anisocytosis Auto Ql (Bld) PRESENT Normal [facility] Erythrocyte distribution width Auto Ratio (RBC) 23.8 % Critically high 11.5-14.5 [facility] Hematocrit Auto Volume Fraction (Bld) 25.6 % Low 37.0-47.0 [facility] Hemoglobin mass conc (Bld) 8.4 g/dL Low 12.0-16.0 [facility] Hypochromia PRESENT Normal [facility] MCH Auto Entitic mass (RBC) 26.5 pg Low 27.0-31.3 [facility] MCHC Auto mass conc (RBC) 32.8 % Low 33.0-37.0 [facility] MCV Auto Entitic volume (RBC) 80.9 fL Low 82.0-100.0 [facility] Platelets Auto #/vol (Bld) 259 10*3/uL Normal 130-400 [facility] RBC Auto #/vol (Bld) 3.16 10*6/uL Low 4.20-5.40 [facility] Basophils Auto #/vol (Bld) 0.1 10*3/uL Normal 0.0-0.2 [facility] Basophils/100 WBC Auto (Bld) 1.5 % Normal [facility] Eosinophils Auto #/vol (Bld) 0.2 10*3/uL Normal 0.0-0.7 [facility] Eosinophils/100 WBC Auto (Bld) 4.2 % Normal [facility] Lymphocytes Auto #/vol (Bld) 1.9 10*3/uL Normal 1.0-4.8 [facility] Lymphocytes/100 WBC Auto (Bld) 40.0 % Normal [facility] Monocytes Auto #/vol (Bld) 0.1 10*3/uL Low 0.2-0.8 [facility] Monocytes/100 WBC Auto (Bld) 3.1 % Normal [facility] Neutrophils Auto #/vol (Bld) 2.4 10*3/uL Normal 1.4-6.5 [facility] Neutrophils/100 WBC Auto (Bld) 51.2 % Normal [facility] WBC Auto #/vol (Bld) 4.6 10*3/uL Low 4.8-10.8 [facility] Culture, Funguson 01-08-2018 Preliminary SEE NOTE Normal [facility] Comment on above: Order Comment: CALL [facility] LC1W tel. [phone], called hgb to ramila oseguera rn on 1w by scbHematology results called to and read back by ramila oseguera on 1w, 12/27/201706:44, by RAYSHAWN Result Comment: No Nathan rojas, culture still in progress.Performed by [employer],[address] [place] [id number] fua.Natera, Artur Agustin MD - Lab. Director CBC With Platelet and Differ entialon 01-04-2018 Anisocytosis Auto Ql (Bld) 2+ Normal [facility] Bands 2 % Low 5-11 [facility] Basophils Auto #/vol (Bld) 0.1 10*3/uL Normal 0.0-0.2 [facility] Basophils/100 WBC Auto (Bld) 1.0 % Normal [facility] Eosinophils Auto #/vol (Bld) 0.2 10*3/uL Normal 0.0-0.7 [facility] Eosinophils/100 WBC Auto (Bld) 2.0 % Normal [facility] Lymphocytes Auto #/vol (Bld) 0.7 10*3/uL Low 1.0-4.8 [facility] Lymphocytes/100 WBC Auto (Bld) 9.0 % Normal [facility] Macrocytic 1+ Normal [facility] Microcytic 1+ Normal [facility] Monocytes Auto #/vol (Bld) 0.0 10*3/uL Low 0.2-0.8 [facility] Monocytes/100 WBC Auto (Bld) 4.4 % Normal [facility] Neutrophils Auto #/vol (Bld) 6.8 10*3/uL Critically high 1.4-6.5 [facility] Neutrophils/100 WBC Auto (Bld) 86.0 % Normal [facility] Ovalocytes 1+ Normal [facility] Platelet Slide Review Normal Normal [facility] Poikilocytosis 2+ Normal [facility] Tear Drop Cells 1+ Normal [facility] Erythrocyte distribution width Auto Ratio (RBC) 20.4 % Critically high 11.5-14.5 [facility] Hematocrit Auto Volume Fraction (Bld) 22.7 % Low 37.0-47.0 [facility] Hemoglobin mass conc (Bld) 7.4 g/dL Low 12.0-16.0 [facility] MCH Auto Entitic mass (RBC) 26.3 pg Low 27.0-31.3 [facility] MCHC Auto mass conc (RBC) 32.5 % Low 33.0-37.0 [facility] MCV Auto Entitic volume (RBC) 80.8 fL Low 82.0-100.0 [facility] Platelets Auto #/vol (Bld) 234 10*3/uL Normal 130-400 [facility] RBC Auto #/vol (Bld) 2.81 10*6/uL Low 4.20-5.40 [facility] WBC Auto #/vol (Bld) 7.7 10*3/uL Normal 4.8-10.8 [facility] Respiratory Virus Panel by Bret Solis 01-04-2018 Adenovirus B/E - PCR Not Detected Normal [facility] Adenovirus C - PCR Not Detected Normal [facility] Comment on above: Result Comment: The specimen submitted for testing did not meet ARUPsubmission guidelines. Testing was performed on a specimenthat did not meet validated type requirements.Performance characteristics of this assay may be affected.Interpret results with caution. Please refer to the [employer] Directory for information on specimenacceptability:[email or web address].Test developed and characteristics determined by [facility]. See Compliance Statement B: [employer]/CS.Performed by [employer],[address] [place] [id number] rgf.[employer], Artur Agustin MD - Lab. Director Human Metapneumovirus - PCR Not Detected Normal [facility] Human Rhinovirus - PCR Not Detected Normal [facility] Influenza A - PCR Not Detected Normal [facility] Influenza A 2009 H1N1 - PCR Not Detected Normal [facility] Influenza A H1 - PCR Not Detected Normal [facility] Influenza A H3 - PCR Not Detected Normal [facility] [facility] Influenza B - PCR Not Detected Normal [facility] Parainfluenza Virus 1 - PCR Not Detected Normal [facility] Parainfluenza Virus 2 - PCR Not Detected Normal [facility] Parainfluenza Virus 3 - PCR Not Detected Normal [facility] Respiratory Syncytial Virus A - PCR Not Detected Normal [facility] Respiratory Syncytial Virus B - PCR Not Detected Normal [facility] RVP Source Bronch Wash RUL Normal [facility] CBC With Platelet and Differ entialon 01-02-2018 Basophils Auto #/vol (Bld) 0.1 10*3/uL Normal 0.0-0.2 [facility] Basophils/100 WBC Auto (Bld) 0.8 % Normal [facility] Eosinophils Auto #/vol (Bld) 0.1 10*3/uL Normal 0.0-0.7 [facility] Eosinophils/100 WBC Auto (Bld) 1.6 % Normal [facility] Erythrocyte distribution width Auto Ratio (RBC) 19.9 % Critically high 11.5-14.5 [facility] Hematocrit Auto Volume Fraction (Bld) 22.0 % Low 37.0-47.0 [facility] Hemoglobin mass conc (Bld) 7.3 g/dL Low 12.0-16.0 [facility] Lymphocytes Auto #/vol (Bld) 1.2 10*3/uL Normal 1.0-4.8 [facility] Lymphocytes/100 WBC Auto (Bld) 19.0 % Normal [facility] MCH Auto Entitic mass (RBC) 26.8 pg Low 27.0-31.3 [facility] MCHC Auto mass conc (RBC) 33.4 % Normal 33.0-37.0 [facility] MCV Auto Entitic volume (RBC) 80.4 fL Low 82.0-100.0 [facility] Monocytes Auto #/vol (Bld) 0.3 10*3/uL Normal 0.2-0.8 [facility] Monocytes/100 WBC Auto (Bld) 4.9 % Normal [facility] Neutrophils Auto #/vol (Bld) 4.8 10*3/uL Normal 1.4-6.5 [facility] Neutrophils/100 WBC Auto (Bld) 73.7 % Normal [facility] Platelets Auto #/vol (Bld) 248 10*3/uL Normal 130-400 [facility] RBC Auto #/vol (Bld) 2.74 10*6/uL Low 4.20-5.40 [facility] WBC Auto #/vol (Bld) 6.5 10*3/uL Normal 4.8-10.8 [facility] Rejection Notificationon Rejected Test FOB Normal [facility] Rejected Test FOB Normal [facility] AFB Culture with Stainon Preliminary SEE NOTE Normal [facility] Comment on above: Order Comment: Bronc h wash RULBronch Wash RUL Result Comment: Spec imen received and in progress.Positive culture results are called as soon as detected.Final report to follow in seven to eight weeksPerformed by [facility],[address] [place] [address],[place] [id number] ers.Natera, Artur Agusitn MD - Lab. Director Preliminary SEE NOTE Normal [facility] Comment on above: Order Comment: CALL [place] 1 tel. [phone], called hgb to ramila june rn on 1w by scbHematology results called to and read back by ramila june on 1w, 12/27/201706:44, by BONSA Result Comment: Spec ashley received and in progress.Positive culture results are called as soon as detected.Final report to follow in seven to eight weeksPerformed by [facility],[address] [place] [address],[place] [id number] mta.Natera, Artur Agustin MD - Lab. Director CBC With Platelet and Differ entialon 01-01-2018 Basophils Auto #/vol (Bld) 0.0 10*3/uL Normal 0.0-0.2 [facility] Comment on above: Order Comment: CALL [facility] tel. [phone], called hgb to ramila june rn on 1w by scbHematology results called to and read back by ramila oseguera on 1w, 12/27/201706:44, by BONSA Basophils/100 WBC Auto (Bld) 0.8 % Normal [facility] Comment on above: Order Comment: CALL [facility] 1 tel. [phone], called hgb to ramila june rn on 1w by scbHematology results called to and read back by ramila oseguera on 1w, 12/27/201706:44, by BONSA Eosinophils Auto #/vol (Bld) 0.1 10*3/uL Normal 0.0-0.7 [facility] Comment on above: Order Comment: CALL [facility] 1 tel. [phone], called hgb to ramila june rn on 1w by scbHematology results called to and read back by ramila june on 1w, 12/27/201706:44, by BONSA Eosinophils/100 WBC Auto (Bld) 1.8 % Normal [facility] Comment on above: Order Comment: CALL [facility] 1W tel. [phone], called hgb to ramila oseguera rn on 1w by scbHematology results called to and read back by ramila june on 1w, 12/27/201706:44, by BONSA Erythrocyte distribution width Auto Ratio (RBC) 18.6 % Critically high 11.5-14.5 [facility] Comment on above: Order Comment: CALL [place] [facility] tel. [phone], called hgb to ramila ana rosa rn on 1w by scbHematology results called to and read back by ramila oseguera on 1w, 12/27/201706:44, by BONSA Hematocrit Auto Volume Fraction (Bld) 20.1 % Critically low 37.0-47.0 [facility] Comment on above: Order Comment: CALL [facility] tel. [phone], called hgb to ramila oseguera rn on 1w by scbHematology results called to and read back by ramila oseguera on 1w, :44, by BONSA Hemoglobin mass conc (Bld) 6.7 g/dL Critically low 12.0-16.0 [facility] Comment on above: Order Comment: CALL [address] tel. [phone], called hgb to ramila oseguera rn on 1w by scbHematology results called to and read back by ramila oseguera on 1w, :44, by BONSA Result Comment: veri fied by repeat Lymphocytes Auto #/vol (Bld) 0.9 10*3/uL Low 1.0-4.8 [facility] Comment on above: Order Comment: CALL [address] tel. [phone], called hgb to ramila oseguera rn on 1w by scbHematology results called to and read back by ramila oseguera on 1w, :44, by BON Lymphocytes/100 WBC Auto (Bld) 18.3 % Normal [facility] Comment on above: Order Comment: CALL [place] tel. [phone], called hgb to ramila oseguera rn on 1w by scbHematology results called to and read back by ramila oseguera on 1w, 12/27/201706:44, by BONSA MCH Auto Entitic mass (RBC) 26.5 pg Low 27.0-31.3 [facility] Comment on above: Order Comment: CALL [place] tel. [phone], called hgb to ramila oseguera rn on 1w by scbHematology results called to and read back by ramila june on 1w, :44, by BONSA MCHC Auto mass conc (RBC) 33.1 % Normal 33.0-37.0 [facility] Comment on above: Order Comment: CALL [address] tel. [phone], called hgb to ramila oseguera rn on 1w by scbHematology results called to and read back by ramila june on 1w, :44, by BONSA MCV Auto Entitic volume (RBC) 80.0 fL Low 82.0-100.0 [facility] Comment on above: Order Comment: CALL [address] tel. [phone], called hgb to ramila oseguera rn on 1w by scbHematology results called to and read back by ramila june on 1w, :44, by BONSA Monocytes Auto #/vol (Bld) 0.3 10*3/uL Normal 0.2-0.8 [facility] Comment on above: Order Comment: CALL [address] tel. [phone], called hgb to ramila osegurea rn on 1w by scbHematology results called to and read back by ramila june on 1w, :44, by BONSA Monocytes/100 WBC Auto (Bld) 5.4 % Normal [facility] Comment on above: Order Comment: CALL [address] tel. [phone], called hgb to ramila oseguera rn on 1w by scbHematology results called to and read back by ramila june on 1w, :44, by BONSA Neutrophils Auto #/vol (Bld) 3.8 10*3/uL Normal 1.4-6.5 [facility] Comment on above: Order Comment: CALL [facility] tel. [phone], called hgb to ramila oseguera rn on 1w by scbHematology results called to and read back by ramila june on 1w, :44, by BONSA Neutrophils/100 WBC Auto (Bld) 73.7 % Normal [facility] Comment on above: Order Comment: CALL [facility] tel. [phone], called hgb to ramila oseguera rn on 1w by scbHematology results called to and read back by ramila june on 1w, 12/27/201706:44, by BONSA Platelets Auto #/vol (Bld) 174 10*3/uL Normal 130-400 [facility] Comment on above: Order Comment: CALL [facility] tel. [phone], called hgb to ramila oseguera rn on 1w by scbHematology results called to and read back by ramila june on 1w, 12/27/201706:44, by BONSA RBC Auto #/vol (Bld) 2.51 10*6/uL Low 4.20-5.40 [facility] Comment on above: Order Comment: CALL [facility] tel. [phone], called hgb to ramila oesguera rn on 1w by scbHematology results called to and read back by ramila june on 1w, 12/27/201706:44, by BONSA WBC Auto #/vol (Bld) 5.1 10*3/uL Normal 4.8-10.8 [facility] Comment on above: Order Comment: CALL [facility] tel. [phone], called hgb to ramila oseguera rn on 1w by scbHematology results called to and read back by ramila june on 1w, 12/27/201706:44, by RAYSHAWN [facility] Bacterial susceptibility panel by Minimum inhibitory concentration (ISRA) ORDERED BY: LESLIE PENALOZA: Blood COLLECTED: 12/31/17 00:40ANTIBIOTICS AT RADHA.: RECEIVED : 12/31/17 01:26CALL [facility] LC4[facility] tel. [phone],Blood culture results called to and read back by Henri Christine, 01/01/2018 13:30, by Heavenly Geiger 2 FINAL 01/03/18 07:41 1 out of 2 blood cultures POSITIVE for Serratia marcescens S. marces ANTIBIOTICS ISRA Interp A moxicillin/Clavulanate >=32 R Cefepime <=1 S Ceftriaxone <=1 S Ciprofloxacin <=0.25 S Gentamicin <=1 S Trimethoprim/Sulfamethoxaz ole <=20 S S=SUSCEPTIBLE I=INTERMEDIATE R=RESISTANT Normal [facility] CBC With Platelet and Differ entialon 12-31-2017 Basophils Auto #/vol (Bld) 0.1 10*3/uL Normal 0.0-0.2 [facility] Comment on above: Order Comment: CALL [facility] tel. [phone], called hgb to ramila oseguera rn on 1w by scematology results called to and read back by ramila oseguera on 1w, 12/27/201706:44, by RAYSHAWN Basophils/100 WBC Auto (Bld) 0.7 % Normal [facility] Comment on above: Order Comment: CALL [facility] LC1[facility] tel. [phone], called hgb to ramila oseguera rn on 1w by scbHematology results called to and read back by ramila june on 1w, :44, by RAYSHAWN Eosinophils Auto #/vol (Bld) 0.0 10*3/uL Normal 0.0-0.7 [facility] Comment on above: Order Comment: CALL [address] tel. [phone], called hgb to ramila june rn on 1w by scbHematology results called to and read back by ramila june on 1w, :44, by RAYSHAWN Eosinophils/100 WBC Auto (Bld) 0.4 % Normal [facility] Comment on above: Order Comment: CALL [address] tel. [phone], called hgb to ramila june rn on 1w by scbHematology results called to and read back by ramila june on 1w, :44, by RAYSHAWN Erythrocyte distribution width Auto Ratio (RBC) 19.0 % Critically high 11.5-14.5 [facility] Comment on above: Order Comment: CALL [address] tel. [phone], called hgb to ramila june rn on 1w by scbHematology results called to and read back by ramila june on 1w, :44, by RAYSHAWN Hematocrit Auto Volume Fraction (Bld) 19.7 % Critically low 37.0-47.0 [facility] Comment on above: Order Comment: CALL [address] tel. [phone], called hgb to ramila june rn on 1w by scbHematology results called to and read back by ramila june on 1w, :44, by RAYSHAWN Hemoglobin mass conc (Bld) 6.6 g/dL Critically low 12.0-16.0 [facility] Comment on above: Order Comment: CALL [address] tel. [phone], called hgb to ramila june rn on 1w by scbHematology results called to and read back by ramila june on 1w, :44, by BON Result Comment: veri fied by repeat Lymphocytes Auto #/vol (Bld) 0.8 10*3/uL Low 1.0-4.8 [facility] Comment on above: Order Comment: CALL [facility] tel. [phone], called hgb to ramila oseguera rn on 1w by scbHematology results called to and read back by ramila june on 1w, :44, by BONSA Lymphocytes/100 WBC Auto (Bld) 9.0 % Normal [facility] Comment on above: Order Comment: CALL [place] tel. [phone], called hgb to ramila oseguera rn on 1w by scbHematology results called to and read back by ramila june on 1w, :44, by BONSA MCH Auto Entitic mass (RBC) 26.7 pg Low 27.0-31.3 [facility] Comment on above: Order Comment: CALL [address] tel. [phone], called hgb to ramila oseguera rn on 1w by scbHematology results called to and read back by ramila june on 1w, :44, by BONSA MCHC Auto mass conc (RBC) 33.3 % Normal 33.0-37.0 [facility] Comment on above: Order Comment: CALL [address] tel. [phone], called hgb to ramila oseguera rn on 1w by scbHematology results called to and read back by ramlia oseguera on 1w, :44, by BONSA MCV Auto Entitic volume (RBC) 80.1 fL Low 82.0-100.0 [facility] Comment on above: Order Comment: CALL [place] tel. [phone], called hgb to ramila oseguera rn on 1w by scbHematology results called to and read back by ramila june on 1w, :44, by BONSA Monocytes Auto #/vol (Bld) 0.5 10*3/uL Normal 0.2-0.8 [facility] Comment on above: Order Comment: CALL [place] [facility] tel. [phone], called hgb to ramila oseguera rn on 1w by scbHematology results called to and read back by ramila june on 1w, :44, by BONSA Monocytes/100 WBC Auto (Bld) 5.4 % Normal [facility] Comment on above: Order Comment: CALL [facility] 1 tel. [phone], called hgb to ramila oseguera rn on 1w by scbHematology results called to and read back by ramila june on 1w, 12/27/201706:44, by BONSA Neutrophils Auto #/vol (Bld) 7.1 10*3/uL Critically high 1.4-6.5 [facility] Comment on above: Order Comment: CALL [place] [facility] tel. [phone], called hgb to ramila oseguera rn on 1w by scbHematology results called to and read back by ramila june on 1w, :44, by BONSA Neutrophils/100 WBC Auto (Bld) 84.5 % Normal [facility] Comment on above: Order Comment: CALL [place] [facility] tel. [phone], called hgb to ramila oseguera rn on 1w by scbHematology results called to and read back by ramila june on 1w, :44, by BONSA Platelets Auto #/vol (Bld) 195 10*3/uL Normal 130-400 [facility] Comment on above: Order Comment: CALL [facility] 1 tel. [phone], called hgb to ramila oseguera rn on 1w by scbHematology results called to and read back by ramila june on 1w, :44, by BONSA RBC Auto #/vol (Bld) 2.46 10*6/uL Low 4.20-5.40 [facility] Comment on above: Order Comment: CALL [facility] 1W tel. [phone], called hgb to ramila oseguera rn on 1w by scbHematology results called to and read back by ramila june on 1w, :44, by BONSA WBC Auto #/vol (Bld) 8.4 10*3/uL Normal 4.8-10.8 [facility] Comment on above: Order Comment: CALL [facility] 1W tel. [phone], called hgb to ramila oseguera rn on 1w by scbHematology results called to and read back by ramila oseguera on 1w, 12/27/201706:44, by RAYSHAWN Culture, Blood 2on 8 Culture, Blood 2 OR DERED BY: LESLIE PENALOZA: Blood COLLECTED: 12/31/17 00:40ANTIBIOTICS AT RADHA.: RECEIVED : 12/31/17 01:26CALL [place] LC4[facility] tel. [phone],Blood culture results called to and read back by Henri Christine, 01/01/2018 13:30, by MICRECulture, Blood 2 INTERIM 01/02/18 08:16 Gram stain aerobic bottle Gram negative rods 1 out of 2 blood cultures Further results to follow POSITIVE for Gram negative arminda ID and sensitivity to follow Normal [facility] IR FLUORO GUIDED CVA DEVICE [...] sheath was placed over the guidewire. A 4-Tanzanian 44 cm single lumen PICC was advanced [...] COMPLICATIONS.Interpreted by:Lucas Santamaria by:Gordon Hinton MD01/10/18inal result [facility] IR PICC WO SQ PORT/PUMP > 5 [...] sheath was placed over the guidewire. A 4-Tanzanian 44 cm single lumen PICC was advanced [...] by:FRANCO Santamariaigned by:Gordon Hinton MD01/10/18inal result Normal [facility] IR ULTRASOUND GUIDANCE VASCU LAR [...] sheath was placed over the guidewire. A 4-Tanzanian 44 cm single lumen PICC was advanced [...] by:FRANCO Santamariaigned by:Gordon Hinton MD01/10/18inal result Normal [facility] Basic Metabolic Panel Reflex Mgon 12-30-2017 Calcium mass conc 8.4 mg/dL Low 8.6-10.2 [facility] Chloride molar conc 107 mmol/L Normal 98-107 [facility] CO2 molar conc 24 mmol/L Normal 22-29 [facility] Creatinine mass conc 0.73 mg/dL Normal 0.50-0.90 [facility] GFR/1.73 sq M predicted among blacks MDRD vol rate/area (S/P/Bld) mL/min/{1.73_m2} Normal >60 [facility] Comment on above: Result Comment: >60 mL/min/1.73m2 EGFR, calc. for ages 18 and older using theMDRD formula (not corrected for weight), is valid for stablerenal function. GFR/1.73 sq M.predicted MDRD vol rate/area mL/min/{1.73_m2} Normal >60 [facility] Comment on above: Result Comment: >60 mL/min/1.73m2 EGFR, calc. for ages 18 and older using theMDRD formula (not corrected for weight), is valid for stablerenal function. Glucose mass conc 82 mg/dL Normal 74-109 [facility] Potassium reflex Mg 4.8 mEq/L Normal 3.5-5.1 [facility] Sodium molar conc 140 mmol/L Normal 132-144 [facility] Urea nitrogen mass conc 8 mg/dL Normal 6-20 [facility] Anion gap 3 molar conc 9 mmol/L Normal 7-13 [facility] Body Fluid Cell Counton 12-16 Atypical Lymphs 3 % Normal [facility] Eosinophils/100 WBC Auto (Bld) 1 % Normal [facility] Lymphocytes/100 WBC Auto (Bld) 8 % Normal [facility] Mesothelials 50 % Normal [facility] Monocytes/100 WBC Auto (Bld) 20 % Normal [facility] Neutrophils/100 WBC Auto (Bld) 18 % Normal [facility] CBC With Platelet and Differ entialon 12-30-2017 Basophils Auto #/vol (Bld) 0.0 10*3/uL Normal 0.0-0.2 [facility] Comment on above: Order Comment: CALL [facility] LC4[facility] tel. [phone],h and h results called to and read back by es perdomo on 4w / scb,12/30/2017 09:51, by RAYSHAWN Basophils/100 WBC Auto (Bld) 1.0 % Normal [facility] Comment on above: Order Comment: CALL [facility] LC4[facility] tel. [phone],h and h results called to and read back by es perdomo on 4w / scb,12/30/2017 09:51, by BONSA Eosinophils Auto #/vol (Bld) 0.1 10*3/uL Normal 0.0-0.7 [facility] Comment on above: Order Comment: CALL [facility] LC4[facility] tel. [phone],h and h results called to and read back by es perdomo on 4w / scb,12/30/2017 09:51, by BON Eosinophils/100 WBC Auto (Bld) 1.8 % Normal [facility] Comment on above: Order Comment: CALL [facility] LC4[facility] tel. [phone],h and h results called to and read back by es perdomo on 4w / scb,12/30/2017 09:51, by BONSA Erythrocyte distribution width Auto Ratio (RBC) 18.8 % Critically high 11.5-14.5 [facility] Comment on above: Order Comment: CALL [facility] LC4[facility] tel. [phone],h and h results called to and read back by es perdomo on 4w / scb,12/30/2017 09:51, by BONSA Hematocrit Auto Volume Fraction (Bld) 20.8 % Critically low 37.0-47.0 [facility] Comment on above: Order Comment: CALL [facility] LC4[facility] tel. [phone],h and h results called to and read back by es perdomo on 4w / scb,12/30/2017 09:51, by BONSA Hemoglobin mass conc (Bld) 7.0 g/dL Critically low 12.0-16.0 [facility] Comment on above: Order Comment: CALL [facility] LC4[facility] tel. [phone],h and h results called to and read back by es perdomo on 4w / scb,12/30/2017 09:51, by BONSA Lymphocytes Auto #/vol (Bld) 1.0 10*3/uL Normal 1.0-4.8 [facility] Comment on above: Order Comment: CALL [facility] LC4[facility] tel. [phone],h and h results called to and read back by es perdomo on 4w / scb,12/30/2017 09:51, by BONSA Lymphocytes/100 WBC Auto (Bld) 20.2 % Normal [facility] Comment on above: Order Comment: CALL [facility] LC4[facility] tel. [phone],h and h results called to and read back by es perdomo on 4w / scb,12/30/2017 09:51, by BONSA MCH Auto Entitic mass (RBC) 26.8 pg Low 27.0-31.3 [facility] Comment on above: Order Comment: CALL [facility] LC4[facility] tel. [phone],h and h results called to and read back by es perdomo on 4w / scb,12/30/2017 09:51, by BONSA MCHC Auto mass conc (RBC) 33.9 % Normal 33.0-37.0 [facility] Comment on above: Order Comment: CALL [facility] LC4[facility] tel. [phone],h and h results called to and read back by es perdomo on 4w / scb,12/30/2017 09:51, by BONSA MCV Auto Entitic volume (RBC) 79.1 fL Low 82.0-100.0 [facility] Comment on above: Order Comment: CALL [facility] LC4[facility] tel. [phone],h and h results called to and read back by es perdomo on 4w / scb,12/30/2017 09:51, by BONSA Monocytes Auto #/vol (Bld) 0.2 10*3/uL Normal 0.2-0.8 [facility] Comment on above: Order Comment: CALL [facility] LC4[facility] tel. [phone],h and h results called to and read back by es perdomo on 4w / scb,12/30/2017 09:51, by BONSA Monocytes/100 WBC Auto (Bld) 4.8 % Normal [facility] Comment on above: Order Comment: CALL [facility] LC4[facility] tel. [phone],h and h results called to and read back by es perdomo on 4w / scb,12/30/2017 09:51, by BONSA Neutrophils Auto #/vol (Bld) 3.7 10*3/uL Normal 1.4-6.5 [facility] Comment on above: Order Comment: CALL [facility] tel. [phone],h and h results called to and read back by es perdomo on 4w / scb,12/30/2017 09:51, by BONSA Neutrophils/100 WBC Auto (Bld) 72.2 % Normal [facility] Comment on above: Order Comment: CALL [facility] tel. [phone],h and h results called to and read back by es perdomo on 4w / scb,12/30/2017 09:51, by BONSA Platelets Auto #/vol (Bld) 231 10*3/uL Normal 130-400 [facility] Comment on above: Order Comment: CALL [facility] tel. [phone],h and h results called to and read back by es perdomo on 4w / scb,12/30/2017 09:51, by RAYSHAWN RBC Auto #/vol (Bld) 2.62 10*6/uL Low 4.20-5.40 [facility] Comment on above: Order Comment: CALL [facility] LC4[facility] tel. [phone],h and h results called to and read back by es perdomo on 4w / scb,12/30/2017 09:51, by RAYSHAWN WBC Auto #/vol (Bld) 5.1 10*3/uL Normal 4.8-10.8 [facility] Comment on above: Order Comment: CALL [facility] tel. [phone],h and h results called to and read [...] by:FRANCO Mcmanusigned by:Huan Funes MD12/30/17inal result Normal [facility] [place] Miscellaneous test 1on 12-29-2017 Miscellaneous Test 1 SEE NOTE Normal [facility] Comment on above: Order Comment: Colle ction has been rescheduled by VIVIEN at 12/26/2017 14:59. Reason:patient refusing until she gets pain meds Result Comment: Test name Result Flag Units RefIntvl HIV-1,2 Combo Antigen/Antibody Negative NegativeThe specimen was non-reactive for HIV-1 and HIV-2 antibodies, and [id number]. Based on this non-reactive screen result, further reflexivetestingwas not indicated and was, therefore, not performedINTERPRETIVE INFORMATION: HIV-1,2 Combo Ag/Ab EIA w/ReflexThis assay should not be used for blood donor screening, associatedre-entryprotocols, or for screening Human Cell, Tissues and Cellular andTissue-BasedProducts (HCT/P).Performed by [facility],[address] [place] [id number] div.Natera, Artur Agustin MD - Lab. Director Protein mass conc 5779809 g/dL Normal [facility] Comment on above: Order Comment: Terri gonzales has been rescheduled by VIVIEN at 12/26/2017 14:59. Reason:patient refusing until she gets pain meds [facility] Bacterial susceptibility panel by Minimum inhibitory concentration (ISRA) ORDERED BY: YOLANDA POWELL: Bronchial Washing Right Upper Lobe COLLECTED: 12/29/17 15:09ANTIBIOTICS AT RADHA.: RECEIVED : 12/29/17 15:37 Supplemental ReportCALL [facility] LC4W tel. [phone],MRSA results called to and read back by [...] Vancomycin <=0.5 S S=SUSCEPTIBLE I=INTERMEDIATE R=RESISTANT Normal [facility] Bacterial susceptibility panel by Minimum inhibitory concentration (ISRA) ORDERED BY: YOLANDA POWELL: Bronchial Washing Body Fluid COLLECTED: 12/29/17 14:43ANTIBIOTICS AT RADHA.: RECEIVED : 12/29/17 15:42CALL Murdock LC4W tel. [phone],MRSAresults called to and read back by Nanci, [...] Trimethoprim/Sulfamethoxaz ole <=20 S S=SUSCEPTIBLE I=INTERMEDIATE R=RESISTANT [facility] Body Fluid Cell Counton 11-1 Appearance Nom (U) Hazy [facility] Clot Check see below [facility] Comment on above: Result Comment: No C lots Seen Color Nom (U) Colorless Normal [facility] Fluid Source Pleural Normal [facility] Total Nucleated Cells 341 /cumm Normal [facility] Total Red Blood Cells 2888 /cumm Normal [facility] Total Cells Counted for Diff 100 Normal [facility] CBC With Platelet No Aden chapman 12-29-2017 Erythrocyte distribution width Auto Ratio (RBC) 18.5 % Critically high 11.5-14.5 [facility] Comment on above: Order Comment: Terri gonzales has been rescheduled by SAUDE at 12/26/2017 14:59. Reason:patient refusing until she gets pain meds Hematocrit Auto Volume Fraction (Bld) 18.5 % Critically low 37.0-47.0 [facility] Comment on above: Order Comment: Terri gonzales has been rescheduled by SAUDE at 12/26/2017 14:59. Reason:patient refusing until she gets pain meds Hemoglobin mass conc (Bld) 6.2 g/dL Critically low 12.0-16.0 [facility] Comment on above: Order Comment: Terri gonzales has been rescheduled by SAUDE at 12/26/2017 14:59. Reason:patient refusing until she gets pain meds MCH Auto Entitic mass (RBC) 26.6 pg Low 27.0-31.3 [facility] Comment on above: Order Comment: Terri gonzales has been rescheduled by SAUDE at 12/26/2017 14:59. Reason:patient refusing until she gets pain meds MCHC Auto mass conc (RBC) 33.6 % Normal 33.0-37.0 [facility] Comment on above: Order Comment: Terri gonzales has been rescheduled by SAUDE at 12/26/2017 14:59. Reason:patient refusing until she gets pain meds MCV Auto Entitic volume (RBC) 79.0 fL Low 82.0-100.0 [facility] Comment on above: Order Comment: Terri gonzales has been rescheduled by SAUDE at 12/26/2017 14:59. Reason:patient refusing until she gets pain meds Platelets Auto #/vol (Bld) 173 10*3/uL Normal 130-400 [facility] Comment on above: Order Comment: Terri gonzales has been rescheduled by SAUDE at 12/26/2017 14:59. Reason:patient refusing until she gets pain meds RBC Auto #/vol (Bld) 2.34 10*6/uL Low 4.20-5.40 [facility] Comment on above: Order Comment: Terri gonzales has been rescheduled by SAUDE at 12/26/2017 14:59. Reason:patient refusing until she gets pain meds WBC Auto #/vol (Bld) 3.5 10*3/uL Low 4.8-10.8 [facility] Comment on above: Order Comment: Terri gonzales has been rescheduled by SAUDE at 12/26/2017 14:59. Reason:patient refusing until she gets pain meds CONSULTATIONon 12-29-[address] [place] [address] CONSULTATIONPATIENT NAME: ALESHA KENNEY : 1985MED REC NO: [id number] ROOM:ACCOUNT NO: [id number] ADMIT DATE: 12/25/2017PROVIDER: [facility] Carbone[facility]: 12/29/2017Consultation from Dr. Dominga Powell.REASON FOR [...] this consult.AYANA CARBONE, MDD: 12/29/2017 18:06:42 [id number]#: [id number] Doc#: [id number]: MD Dominga Rai MD [facility] Culture, Respiratoryon 12-29 Culture, Respiratory ORDERED BY: YOLANDA POWELL: Bronchial Washing Left Lower Lobe COLLECTED: 12/29/17 15:11ANTIBIOTICS AT RADHA.: RECEIVED : 12/29/17 15:41CALL [facility] LC4W tel. [phone],MRSA results called to and read back by Nanci, 01/01/2018 12:23, by KEVGram Stain Direct FINAL 12/30/17 10:54 Moderate WBC's, No organisms seenCulture, Respiratory FINAL 01/01/18 12:24 Light growth Staph aureus MRSA CONTACT PRECAUTIONS INDICATED PBP2= POSITIVE Previous value was 01 Staph aureus MSSA, verified by KEV at 13:14 on 12/31/17 Normal [facility] Culture, Respiratory ORDERED BY: YOLANDA [...] Gram negative arminda ID to follow Normal [facility] Culture, Respiratory ORDERED BY: YOLANDA POWELL: Bronchial Washing Body Fluid COLLECTED: 12/29/17 14:43ANTIBIOTICS AT RADHA.: RECEIVED : 12/29/17 15:42Gram Stain Direct FINAL 12/30/17 10:59 Few WBC's Few epithelial cells Few Mixed Respiratory FloraCulture, Respiratory INTERIM 12/31/17 13:15 Light growth Gram negative arminda ID and sensitivity to follow Rare growth Serratia marcescens Refer to previous sensitivity Heavy growth Staph aureus MSSA Normal [facility] Cytology Medical Specimenon 12-29-2017 Cytology Medical Specimen Invalid Interpretation Code [facility] Comment on above: Result Comment: [facility] [address] [place] [address] FINAL CYTOLOGY REPORTPatient Name: ALESHA KENNEY Accession No: [id number] Age Sex: 1985 32 Y/ F Location: [id number] No: [id number] Collected: 12/29/2017Med Rec No: [id number] Received: 12/30/2017Attend Phys: NEENA DUPONT Completed 01/03/2018Perform [...] ml fixed1 monolayer1 cell blockhx Not givenCPT: 82542 X2 94164 X2 Screened by: Irasema CAZARES M.D. 01/03/2018 [...] by:FRANCO Mittaligned by:Keith Durham MD12/29/17inal result Normal [facility] HCV by Quant NAATon 12-30-19 18 HCV Qnt by NAAT IU/mL Not Detected Normal [facility] Comment on above: Order Comment: Terri gonzales has been rescheduled by SAUDE at 12/26/2017 14:59. Reason:patient refusing until she gets pain meds HCV Qnt by NAAT log IU/mL Not Detected Normal [facility] Comment on above: Order Comment: Terri gonzales has been rescheduled by SAUDE at 12/26/2017 14:59. Reason:patient refusing until she gets pain meds Prothrombin Timeon 8 INR Coag RelTime (PPP) 1.1 {INR} Normal [facility] Comment on above: Result Comment: [...] Coag time (PPP) 11.4 s Normal 9.6-12.3 [facility] Quantiferon-TB Gold Plus, 1- Tubeon 12-29-2017 Quantiferon Mitogen minus NIL 0.52 IU/mL Normal [facility] Comment on above: Order Comment: Terri gonzales has been rescheduled by SAUDE at 12/26/2017 14:59. Reason:patient refusing until she gets pain meds Quantiferon NIL 0.05 IU/mL Normal [facility] Comment on above: Order Comment: Terri gonzales has been rescheduled by SAUDE at 12/26/2017 14:59. Reason:patient refusing until she gets pain meds Result Comment: Perf ormed by [employer],[address] [facility] [address] qan.Natera, Artur Agustin MD - Lab. Director Quantiferon PlusTB1 minus NIL 0.00 IU/mL Normal 0.00-0.34 [facility] Comment on above: Order Comment: Terri gonzales has been rescheduled by SAUDE at 12/26/2017 14:59. Reason:patient refusing until she gets pain meds Quantiferon PlusTB2 minus NIL 0.00 IU/mL Normal 0.00-0.34 [facility] Comment on above: Order Comment: Terri gonzales has been rescheduled by SAUDE at 12/26/2017 14:59. Reason:patient refusing until she gets pain meds Quantiferon TB Gold Plus Negative Normal Negative [facility] Comment on above: Order Comment: [...] CD4+ lymphocyte reactivity, specifically stimulated by the [id number]. The TB2-NIL tube detects both CD4+ and CD8+ lymphocytereactivity,stimulated by TB2 antigens. An overall Negative result does notcompletelyrule out TB infection.A false-positive result in the absence of other clinical evidence of TBinfection is not uncommon. Refer to: Updated Guidelines for UsingInterferonGamma Release Assays to Detect Mycobacterium tuberculosis Infection ---[place], 2010(http://www.cdc.gov/mmwr/preview/mmwrhtml/ib4582p4.htm),for more information concerning test performance in low-prevalencepopulations and use in occupational screening. CBC With Platelet No Differe ntialon 12-28-2017 Erythrocyte distribution width Auto Ratio (RBC) 18.9 % Critically high 11.5-14.5 [facility] Comment on above: Order Comment: Terri gonzales has been rescheduled by SAUDE at 12/26/2017 14:59. Reason:patient refusing until she gets pain meds Hematocrit Auto Volume Fraction (Bld) 21.0 % Critically low 37.0-47.0 [facility] Comment on above: Order Comment: Terri gonzales has been rescheduled by SAUDE at 12/26/2017 14:59. Reason:patient refusing until she gets pain meds Hemoglobin mass conc (Bld) 6.8 g/dL Critically low 12.0-16.0 [facility] Comment on above: Order Comment: Terri gonzales has been rescheduled by SAUDE at 12/26/2017 14:59. Reason:patient refusing until she gets pain meds Result Comment: call ed h and h to lavinia chacon on 1w MCH Auto Entitic mass (RBC) 26.0 pg Low 27.0-31.3 [facility] Comment on above: Order Comment: Terri gonzales has been rescheduled by SAUDE at 12/26/2017 14:59. Reason:patient refusing until she gets pain meds MCHC Auto mass conc (RBC) 32.6 % Low 33.0-37.0 [facility] Comment on above: Order Comment: Terri gonzales has been rescheduled by SAUDE at 12/26/2017 14:59. Reason:patient refusing until she gets pain meds MCV Auto Entitic volume (RBC) 79.9 fL Low 82.0-100.0 [facility] Comment on above: Order Comment: Terri gonzales has been rescheduled by SAUDE at 12/26/2017 14:59. Reason:patient refusing until she gets pain meds Platelets Auto #/vol (Bld) 147 10*3/uL Normal 130-400 [facility] Comment on above: Order Comment: Terri gonzales has been rescheduled by SAUDE at 12/26/2017 14:59. Reason:patient refusing until she gets pain meds RBC Auto #/vol (Bld) 2.63 10*6/uL Low 4.20-5.40 [facility] Comment on above: Order Comment: Terri gonzales has been rescheduled by SAUDE at 12/26/2017 14:59. Reason:patient refusing until she gets pain meds WBC Auto #/vol (Bld) 4.2 10*3/uL Low 4.8-10.8 [facility] Comment on above: Order Comment: Terri gonzales has been rescheduled by SAUDE at 12/26/2017 14:59. Reason:patient refusing until she gets pain meds Hepatitis B Core Abs, Totalo n 12-28-2017 Hepatitis B Core Abs, Total Positive Abnormal Negative [facility] Comment on above: Order Comment: [...] Tissues and Cellular andTissue-Based Products (HCT/P).Performed by [employer],[address] [facility] [place] [address] ftc.Natera, Artur Agustin MD - Lab. Director Transferrinon 12-28-2017 Transferrin mass conc 135 mg/dL Low 200-400 [facility] Comment on above: Order Comment: Terri gonzales has been rescheduled by SAUDE at 12/26/2017 14:59. Reason:patient refusing until she gets pain meds Result Comment: Perf ormed by [employer],[address] [employer], [facility] [place] [address] tuq.Natera, Artur Agustin MD - Lab. Director XR [...] Montoya, DOSigned by:Chandrakant Montoya, DO12/28/18Final result Normal [facility] CBC With Platelet and Differ entialon 12-27-2017 Anisocytosis Auto Ql (Bld) 2+ Normal [facility] Comment on above: Order Comment: CALL [facility]dock 1W tel. [phone], called hgb to ramila oseguera rn on 1w by scbHematology results called to and read back by ramila oseguera on 1w, 12/27/201706:44, by BON Hypochromia 1+ Normal [facility] Comment on above: Order Comment: CALL [facility] 1W tel. [phone], called hgb to ramila oseguera rn on 1w by scbHematology results called to and read back by ramila oseguera on 1w, 12/27/201706:44, by BONSA Lymphocytes Auto #/vol (Bld) 0.8 10*3/uL Low 1.0-4.8 [facility] Comment on above: Order Comment: CALL [facility]dock LC1W tel. [phone], called hgb to ramila oseguera rn on 1w by scbHematology results called to and read back by ramila oseguera on 1w, 12/27/201706:44, by BONSA Lymphocytes/100 WBC Auto (Bld) 22.0 % Normal [facility] Comment on above: Order Comment: CALL [facility] LC1W tel. [phone], called hgb to ramila oseguera rn on 1w by scbHematology results called to and read back by ramila oseguera on 1w, 12/27/201706:44, by BONSA Microcytic 2+ Normal [facility] Comment on above: Order Comment: CALL [facility] LC1W tel. [phone], called hgb to ramila oseguera rn on 1w by scbHematology results called to and read back by ramila oseguera on 1w, :44, by BONSA Monocytes Auto #/vol (Bld) 0.1 10*3/uL Low 0.2-0.8 [facility] Comment on above: Order Comment: CALL [facility]dock LC1W tel. [phone], called hgb to ramila june rn on 1w by scbHematology results called to and read back by ramila june on 1w, :44, by BONSA Monocytes/100 WBC Auto (Bld) 3.8 % Normal [facility] Comment on above: Order Comment: CALL Murdock LC1W tel. [phone], called hgb to ramila june rn on 1w by scbHematology results called to and read back by ramila june on 1w, :44, by BONSA Neutrophils Auto #/vol (Bld) 2.7 10*3/uL Normal 1.4-6.5 [facility] Comment on above: Order Comment: CALL Murdock LC1W tel. [phone], called hgb to ramila june rn on 1w by scbHematology results called to and read back by ramila june on 1w, :44, by BONSA Neutrophils/100 WBC Auto (Bld) 74.0 % Normal [facility] Comment on above: Order Comment: CALL [facility] LC1W tel. [phone], called hgb to ramila june rn on 1w by scbHematology results called to and read back by ramila june on 1w, :44, by RAYSHAWN Platelet Slide Review Decreased Normal [facility] Comment on above: Order Comment: CALL Murdock LC1W tel. [phone], called hgb to ramila june rn on 1w by scbHematology results called to and read back by ramila june on 1w, :44, by RAYSHAWN Poikilocytosis 1+ [facility] Comment on above: Order Comment: CALL Murdock LC1W tel. [phone], called hgb to ramila june rn on 1w by scbHematology results called to and read back by ramila june on 1w, :44, by BONSA Basophils Auto #/vol (Bld) 0.0 10*3/uL Normal 0.0-0.2 [facility] Comment on above: Order Comment: CALL Murdock [facility] tel. [phone], called hgb to ramila june rn on 1w by scbHematology results called to and read back by ramila june on 1w, :44, by BONSA Basophils/100 WBC Auto (Bld) 1.0 % Normal [facility] Comment on above: Order Comment: CALL Murdock [facility] tel. [phone], called hgb to ramila june rn on 1w by scbHematology results called to and read back by ramila june on 1w, :44, by BONSA Eosinophils Auto #/vol (Bld) 0.0 10*3/uL Normal 0.0-0.7 [facility] Comment on above: Order Comment: CALL [address] tel. [phone], called hgb to ramila june rn on 1w by scbHematology results called to and read back by ramila june on 1w, :44, by BONSA Eosinophils/100 WBC Auto (Bld) 1.1 % Normal [facility] Comment on above: Order Comment: CALL [address] tel. [phone], called hgb to ramila june rn on 1w by scbHematology results called to and read back by ramila june on 1w, :44, by BONSA Erythrocyte distribution width Auto Ratio (RBC) 18.8 % Critically high 11.5-14.5 [facility] Comment on above: Order Comment: CALL Murdock [facility] tel. [phone], called hgb to ramila june rn on 1w by scbHematology results called to and read back by ramila june on 1w, :44, by BONSA Hematocrit Auto Volume Fraction (Bld) 21.1 % Low 37.0-47.0 [facility] Comment on above: Order Comment: CALL Murdock [facility] tel. [phone], called hgb to ramila oseguera rn on 1w by scbHematology results called to and read back by ramila june on 1w, :44, by BONSA Hemoglobin mass conc (Bld) 6.9 g/dL Critically low 12.0-16.0 [facility] Comment on above: Order Comment: CALL Murdock [facility] tel. [phone], called hgb to ramila oseguera rn on 1w by scbHematology results called to and read back by ramila oseguera on 1w, :44, by BONSA Result Comment: call ed hgb to ramila june on 1w / scb MCH Auto Entitic mass (RBC) 26.5 pg Low 27.0-31.3 [facility] Comment on above: Order Comment: CALL Murdock [facility] tel. [phone], called hgb to ramila oseguera rn on 1w by scbHematology results called to and read back by ramila oseguera on 1w, :44, by BONSA MCHC Auto mass conc (RBC) 32.8 % Low 33.0-37.0 [facility] Comment on above: Order Comment: CALL Murdock [facility] tel. [phone], called hgb to ramila oseguera rn on 1w by scbHematology results called to and read back by ramila oseguera on 1w, :44, by BONSA MCV Auto Entitic volume (RBC) 80.9 fL Low 82.0-100.0 [facility] Comment on above: Order Comment: CALL Murdock [facility] tel. [phone], called hgb to ramila oseguera rn on 1w by scbHematology results called to and read back by ramila oseguera on 1w, :44, by BONSA Platelets Auto #/vol (Bld) 122 10*3/uL Low 130-400 [facility] Comment on above: Order Comment: CALL Murdock [facility] tel. [phone], called hgb to armila oseguera rn on 1w by scbHematology results called to and read back by ramila oseguera on 1w, :44, by BONSA RBC Auto #/vol (Bld) 2.61 10*6/uL Low 4.20-5.40 [facility] Comment on above: Order Comment: CALL [facility] LC1W tel. [phone], called hgb to ramila oseguera rn on 1w by scbHematology results called to and read back by ramila oseguera on 1w, 12/27/201706:44, by RAYSHAWN WBC Auto #/vol (Bld) 3.6 10*3/uL Low 4.8-10.8 [facility] Comment on above: Order Comment: CALL [facility] LC1W tel. [phone], called hgb to ramila oseguera rn on 1w by scbHematology results called to and read back by ramila oseguera on 1w, 12/27/201706:44, by RAYSHAWN Comprehensive Metabolic Pane l reflex Mgon 12-27-2017 Albumin mass conc 2.4 g/dL Low 3.9-4.9 [facility] ALP enzyme act/vol 40 U/L Normal 40-130 [facility] ALT enzyme act/vol U/L Normal 0-33 [facility] Anion gap 3 molar conc 11 mmol/L Normal 7-13 [facility] AST enzyme act/vol 6 U/L Normal 0-35 [facility] Bilirubin mass conc mg/dL Normal 0.0-1.2 [facility] Calcium mass conc 7.7 mg/dL Low 8.6-10.2 [facility] Chloride molar conc 110 mmol/L Critically high 98-107 [facility] CO2 molar conc 20 mmol/L Low 22-29 [facility] Creatinine mass conc 0.64 mg/dL Normal 0.50-0.90 [facility] GFR/1.73 sq M predicted among blacks MDRD vol rate/area (S/P/Bld) mL/min/{1.73_m2} Normal >60 [facility] Comment on above: Result Comment: >60 mL/min/1.73m2 EGFR, calc. for ages 18 and older using theMDRD formula (not corrected for weight), is valid for stablerenal function. GFR/1.73 sq M.predicted MDRD vol rate/area mL/min/{1.73_m2} Normal >60 [facility] Comment on above: Result Comment: >60 mL/min/1.73m2 EGFR, calc. for ages 18 and older using theMDRD formula (not corrected for weight), is valid for stablerenal function. Globulin Calculated mass conc (S) 3.9 g/dL Critically high 2.3-3.5 [facility] Glucose mass conc 115 mg/dL Critically high 74-109 [facility] Potassium reflex Mg 3.8 mEq/L Normal 3.5-5.1 [facility] Protein mass conc 6.3 g/dL Low 6.4-8.1 [facility] Sodium molar conc 141 mmol/L Normal 132-144 [facility] Urea nitrogen mass conc 10 mg/dL Normal 6-20 [facility] Ferritinon 12-27-2017 Ferritin [Mass/volume] in Serum or Plasma 152.3 ng/mL Critically high 13.0-150.0 [facility] Iron Profileon 12-27-2017 % Saturation 8 % Low 11-46 [facility] Iron Binding Capacity 132 ug/dL Low 178-450 [facility] Iron mass conc 11 ug/dL Low 37-145 [facility] RBC LRon 12-27-2017 RBC Auto #/vol (Bld) PATIENT: ISABEL Jackson [facility] [id number] : 1985 SEX: FORDERED BY: KIAH CHAUDHARY ORDERED : 12/27/2017 07:06 COLLECTED: 12/27/2017 07:20ORDER : [id number] RECEIVED : 12/27/2017 07:27 -----TEST NAME RESULT UNITS RANGES ABN FL STRBC LR E0382 RBC LR W0 F = Normal [facility] Retic Automatedon 12-27-2017 Hematocrit Auto Volume Fraction (Bld) 21.1 % Low 37.0-47.0 [facility] Retic Abs 0.066 m/cumm Normal 0.022-0.11 [facility] Reticulocyte Count Automated 2.5 % Critically high 0.6-2.2 [facility] Type and Screen Capture 3 sc rn cellon 12-27-2017 Type and Screen Capture 3 scrn cell PATIENT: ISABEL Jackson LOC: LC1W,W187,01BILL# : [id number] : 1985 SEX: FORDERED BY: KIAH CHAUDHARY ORDERED : 12/27/2017 07:06 COLLECTED: 12/27/2017 07:20ORDER : [id number] RECEIVED : 12/27/2017 07:27 -----TEST NAME RESULT UNITS RANGES ABN FL STABORH Capture A POS FAntibody 3 Cell Scrn Captu NEG F @12/27/17 10:58 by BEBETO: ANTIBODY SCREEN PERFORMED ON BACKUP CAPTURE. ------- Normal [facility] Bacterial susceptibility fox el by [...] ole <=20 S S=SUSCEPTIBLE I=INTERMEDIATE R=RESISTANT Normal [facility] CT CHEST W CONTRASTon 2017 [...] tissue density, adenopathy.There is trace pericardial effusion.The [id number] the gallbladder surgically absent.IMPRESSION: FINDINGS DESCRIBED ABOVE. [...] by:FRANCO Santamariaigned by:Gordon Hinton MD12/26/17inal result Normal [facility] Culture, Blood 2on 8 Culture, Blood 2 OR DERED BY: GALLITO POLANCO: Blood COLLECTED: 12/26/17 15:49ANTIBIOTICS AT RADHA.: RECEIVED : 12/26/17 15:56Culture, Blood 2 FINAL 12/31/17 16:15 No growth after 5 days of incubation. Normal [facility] Culture, Respiratoryon 12-26 Culture, Respiratory ORDERED BY: GALLITO POLANCO: Sputum Expectorated COLLECTED: 12/26/17 14:45ANTIBIOTICS AT RADHA.: RECEIVED : 12/29/17 12:46Gram Stain Direct FINAL 12/29/17 16:19 Moderate WBC's Few epithelial cells Few Yeast with pseudohyphaeCulture, Respiratory INTERIM 12/30/17 11:53 Light growth Gram negative arminda ID and sensitivity to follow Moderate growth Yeast No further workup Normal [facility] Hepatitis C Antibodyon 12-26 Hepatitis C Antibody Interp REACTIVE Abnormal [facility] Comment on above: Order Comment: Terri gonzales has been rescheduled by VIVIEN at 12/26/2017 14:59. Reason:patient refusing until she gets pain meds Influenza A and Bon 12-27-19 Influenza A Antigen Negative Normal Negative [facility] Influenza B Antigen Negative Normal Negative [facility] Bacterial susceptibility fox el by [facility] 12-25-2017 Bacterial susceptibility panel by Minimum inhibitory concentration (ISRA) ORDERED BY: FLOYD SNIDER: Blood Blood COLLECTED: 12/25/17 21:04ANTIBIOTICS AT RADHA.: RECEIVED : 12/25/17 21:04CALL [facility] LOER tel. [phone],Blood Culture results called to and read back by Beena MASON, 12/26/2017 19:32, by Jodie, Blood FINAL 12/28/17 07:32 1 out of 2 blood cultures POSITIVE for Serratia marcescens S. marces ANTIBIOTICS ISRA Interp A moxicillin/Clavulanate >=32 R Cefepime <=1 S Ceftriaxone <=1 S Ciprofloxacin <=0.25 S Gentamicin <=1 S Trimethoprim/Sulfamethoxaz ole <=20 S S=SUSCEPTIBLE I=INTERMEDIATE R=RESISTANT Normal [facility] CBC With Platelet and Differ entialon 12-25-2017 Basophils Auto #/vol (Bld) 0.0 10*3/uL Normal 0.0-0.2 [facility] Basophils/100 WBC Auto (Bld) 0.5 % Normal [facility] Eosinophils Auto #/vol (Bld) 0.0 10*3/uL Normal 0.0-0.7 [facility] Eosinophils/100 WBC Auto (Bld) 0.2 % Normal [facility] Erythrocyte distribution width Auto Ratio (RBC) 18.9 % Critically high 11.5-14.5 [facility] Hematocrit Auto Volume Fraction (Bld) 23.6 % Low 37.0-47.0 [facility] [facility] Hemoglobin mass conc (Bld) 8.0 g/dL Low 12.0-16.0 [facility] Hypochromia PRESENT Normal [facility] Lymphocytes Auto #/vol (Bld) 1.3 10*3/uL Normal 1.0-4.8 [facility] Lymphocytes/100 WBC Auto (Bld) 16.6 % Normal [facility] MCH Auto Entitic mass (RBC) 26.5 pg Low 27.0-31.3 [facility] MCHC Auto mass conc (RBC) 33.9 % Normal 33.0-37.0 [facility] MCV Auto Entitic volume (RBC) 78.1 fL Low 82.0-100.0 [facility] Monocytes Auto #/vol (Bld) 0.5 10*3/uL Normal 0.2-0.8 [facility] Monocytes/100 WBC Auto (Bld) 6.3 % Normal [facility] Neutrophils Auto #/vol (Bld) 6.2 10*3/uL Normal 1.4-6.5 [facility] Neutrophils/100 WBC Auto (Bld) 76.4 % Normal [facility] Platelets Auto #/vol (Bld) 178 10*3/uL Normal 130-400 [facility] RBC Auto #/vol (Bld) 3.02 10*6/uL Low 4.20-5.40 [facility] WBC Auto #/vol (Bld) 8.1 10*3/uL Normal 4.8-10.8 [facility] Comprehensive Metabolic Pane thanh 12-25-2017 Albumin mass conc 3.2 g/dL Low 3.9-4.9 [facility] ALP enzyme act/vol 39 U/L Low 40-130 [facility] ALT enzyme act/vol U/L Normal 0-33 [facility] Anion gap 3 molar conc 14 mmol/L Critically high 7-13 [facility] AST enzyme act/vol 10 U/L Normal 0-35 [facility] Bilirubin mass conc 0.6 mg/dL Normal 0.0-1.2 [facility] Calcium mass conc 8.7 mg/dL Normal 8.6-10.2 [facility] Chloride molar conc 94 mmol/L Low 98-107 [facility] CO2 molar conc 24 mmol/L Normal 22-29 [facility] Creatinine mass conc 0.68 mg/dL Normal 0.50-0.90 [facility] GFR/1.73 sq M predicted among blacks MDRD vol rate/area (S/P/Bld) mL/min/{1.73_m2} Normal >60 [facility] Comment on above: Result Comment: >60 mL/min/1.73m2 EGFR, calc. for ages 18 and older using theMDRD formula (not corrected for weight), is valid for stablerenal function. GFR/1.73 sq M.predicted MDRD vol rate/area mL/min/{1.73_m2} Normal >60 [facility] Comment on above: Result Comment: >60 mL/min/1.73m2 EGFR, calc. for ages 18 and older using theMDRD formula (not corrected for weight), is valid for stablerenal function. Globulin Calculated mass conc (S) 4.4 g/dL Critically high 2.3-3.5 [facility] Glucose mass conc 120 mg/dL Critically high 74-109 [facility] Potassium molar conc 4.2 mmol/L Normal 3.5-5.1 [facility] Protein mass conc 7.6 g/dL Normal 6.4-8.1 [facility] Sodium molar conc 132 mmol/L Normal 132-144 [facility] Urea nitrogen mass conc 7 mg/dL Normal 6-20 [facility] Creatine Kinaseon 12-25-2017 CK enzyme act/vol 19 U/L Normal 0-170 [facility] Culture, Blood 2on 8 Culture, Blood 2 OR DERED BY: FLOYD SNIDER: Blood COLLECTED: 12/25/17 21:04ANTIBIOTICS AT RADHA.: RECEIVED : 12/25/17 21:04Culture, Blood 2 FINAL 12/30/17 22:15 No growth after 5 days of incubation. Normal [facility] Lactic Acidon 12-25-2017 Lactate molar conc 2.1 mmol/L Normal 0.5-2.2 [facility] Prothrombin Timeon 8 INR Coag RelTime (PPP) 1.2 {INR} Normal [facility] Comment on above: Result Comment: Dimitrios mmended [...] Coag time (PPP) 11.8 s Normal 9.6-12.3 [facility] Troponinon 12-25-2017 Troponin I.cardiac mass conc ng/mL Normal 0.000-0.01 [facility] Comment on above: Result Comment: Meth odology by Troponin T. UR Drug Screen Rapidon 12-25 Drug Screen Comment see below Normal [facility] Comment on above: Result Comment: This method is a screening test to detect only these drugclasses as part of a medical workup. Confirmatory testingby another method should be ordered if clinically indicated. UR Amphetamines Rapid Screen Negative Normal Negative < [facility] Comment on above: Result Comment: Effe ctive: 08/30/17Methodology and/or Reference Range-Cutoff has changed. UR Barbiturates Rapid Screen Negative Normal Negative < [facility] Comment on above: Result Comment: Effe ctive: 08/30/17Methodology and/or Reference Range-Cutoff has changed. UR Benzo Rapid Screen Negative Normal Negative < [facility] Comment on above: Result Comment: Effe ctive: 08/30/17Methodology and/or Reference Range-Cutoff has changed. UR Cannabinoids Rapid Screen Negative Normal Negative < [facility] UR Cocaine Rapid Screen Negative Normal Negative < [facility] Comment on above: Result Comment: Effe ctive: 08/30/17Methodology and/or Reference Range-Cutoff has changed. UR Opiates Rapid Screen Negative Normal Negative < [facility] Comment on above: Result Comment: Effe ctive: 08/30/17Methodology and/or Reference Range-Cutoff has changed. UR PCP Rapid Screen Negative Normal Negative < [facility] UR Tricyclics Rapid Screen - Rapid Negative Normal Negative < [facility] Comment on above: Result Comment: Effe ctive: 08/30/17Methodology and/or Reference Range-Cutoff has changed. UR HCG Qualitativeon 018 HCG.beta subunit ( test) Ql (U) Negative Normal Detects HC [facility] Urinalysis, reflex to cultur eugenia 12-25-2017 Bilirubin Ql (U) Negative Normal Negative [facility] Clarity Nom (U) Clear Normal Clear [facility] Color Nom (U) Yellow Normal Straw/Greenbrier [facility] Glucose Ql (U) Negative Normal Negative [facility] Hemoglobin Test strip Ql (U) Negative Normal Negative [facility] Ketones Ql (U) Negative Normal Negative [facility] Leukocyte esterase Test strip Ql (U) Negative Normal Negative [facility] Nitrite Test strip Ql (U) Negative Normal Negative [facility] pH Test strip (U) 7.0 [pH] Normal 5.0-9.0 [facility] Protein Test strip Ql (U) Negative Normal Negative [facility] Specific gravity Relative Density (U) 1.015 Normal 1.005-1.03 [facility] Urine Reflexed to Culture Not Indicated Normal [facility] Urobilinogen Test strip Qn (U) 0.2 {Katy'U}/dL Normal < 2.0 [facility] Vital Signs Date Time Vital Sign Value Performing Clinician Facility 03-09-2024 14:38-0500 Body height 172.7 cm Sonya Manningpatrick MOTHERCRAFT NURSE Work Phone: [facility] 03-09-2024 14:38-0500 Body mass index (BMI) [Ratio] 46.98 kg/m2 Sonya Robertszpatrick MOTHERCRAFT NURSE Work Phone: [facility] 03-09-2024 14:38-0500 Body temperature 97.81 [degF] Sonya Manningpatrick MOTHERCRAFT NURSE Work Phone: [facility] 03-09-2024 14:38-0500 Body weight 140.16 kg Sonya Robertszpatrick MOTHERCRAFT NURSE Work Phone: [facility] 03-09-2024 14:38-0500 Diastolic blood pressure 88 mm[Hg] Sonya Robertszpatrick MOTHERCRAFT NURSE Work Phone: [facility] 03-09-2024 14:38-0500 Heart rate 91 /min Sonya Villa MOTHERCRAFT NURSE Work Phone: [facility] 03-09-2024 14:38-0500 Respiratory rate 16 /min Sonya Villa MOTHERCRAFT NURSE Work Phone: [facility] 03-09-2024 14:38-0500 SaO2% (BldA) [Mass fraction] 96 % Sonya Robertszpatrick MOTHERCRAFT NURSE Work Phone: [facility] 03-09-2024 14:38-0500 Systolic blood pressure 158 mm[Hg] Sonya Villa MOTHERCRAFT NURSE Work Phone: [facility] 11-23-2023 15:22-0400 Body mass index (BMI) [Ratio] 48.24 kg/m2 Sonya Villa MOTHERCRAFT NURSE Work Phone: [facility] 11-23-2023 15:22-0400 Body temperature 97.3 [degF] Sonya Villa MOTHERCRAFT NURSE Work Phone: [facility] 11-23-2023 15:22-0400 Body weight 139.71 kg Sonya Villa MOTHERCRAFT NURSE Work Phone: [facility] 11-23-2023 15:22-0400 Diastolic blood pressure 102 mm[Hg] Sonya Villa MOTHERCRAFT NURSE Work Phone: [facility] 11-23-2023 15:22-0400 Heart rate 82 /min Sonya Villa MOTHERCRAFT NURSE Work Phone: [facility] 11-23-2023 15:22-0400 SaO2% (BldA) [Mass fraction] 97 % Sonya Villa MOTHERCRAFT NURSE Work Phone: [facility] 11-23-2023 15:22-0400 Systolic blood pressure 146 mm[Hg] Sonya Villa MOTHERCRAFT NURSE Work Phone: [facility] 10-11-2023 15:42-0400 Body height 170.2 cm Sonya Villa MOTHERCRAFT NURSE Work Phone: [facility] 10-11-2023 15:42-0400 Body mass index (BMI) [Ratio] 49.02 kg/m2 Sonya Villa MOTHERCRAFT NURSE Work Phone: [facility] 10-11-2023 15:42-0400 Body temperature 97.3 [degF] Sonya Villa MOTHERCRAFT NURSE Work Phone: [facility] 10-11-2023 15:42-0400 Body weight 141.98 kg Sonya Villa MOTHERCRAFT NURSE Work Phone: [facility] 10-11-2023 15:42-0400 Diastolic blood pressure 90 mm[Hg] Sonya Herediak MOTHERCRAFT NURSE Work Phone: [facility] 10-11-2023 15:42-0400 Heart rate 89 /min Sonya Herediak MOTHERCRAFT NURSE Work Phone: [facility] Comment on above: 100% O2 10-11-2023 15:42-0400 Systolic blood pressure 136 mm[Hg] Sonya Herediak MOTHERCRAFT NURSE Work Phone: [facility] 12-25-2017 19:30-0500 Body mass index (BMI) [Ratio] [facility] Encounters Encounter Date Encounter Type Care Provider Facility Start: 03-09-2024 End: 03-09-2024 Office outpatient visit 10 minutes Sonya Manningpatrick MOTHERCRAFT NURSE Work Phone: [facility] Comment on above: Acute paronychia of right thumb (Primary Dx); Primary hypertension (CMS/HCC) Start: 03-09-2024 End: 03-09-2024 Bamboo flowsheet Sonya Herediak MOTHERCRAFT NURSE Work Phone: [facility] Start: 03-09-2024 End: 03-09-2024 Bamboo flowsheet Sonya Herediak MOTHERCRAFT NURSE Work Phone: [facility] Start: 12-09-2023 End: 12-09-2023 Orders Only Sonya Villa MOTHERCRAFT NURSE Work Phone: [facility] Comment on above: Acute non-recurrent frontal sinusitis (Primary Dx) Start: 11-23-2023 End: 11-23-2023 Periodic preventive med est patient 18-39 yrs Sonya Villa MOTHERCRAFT NURSE Work Phone: [facility] Comment on above: Blood pressure eleva yue without history of HTN (Primary Dx); Morbid obesity (CMS/HCC); Encounter for wellness examination in adult; Tinea pedis of both feet; Opioid abuse, in remission ([facility]) Start: 11-23-2023 End: 11-23-2023 ambulatory SONYA VILLA Not Available Start: 11-23-2023 End: 11-23-2023 Bamboo flowsheet Sonya Villa MOTHERCRAFT NURSE Work Phone: [facility] Start: 11-23-2023 End: 11-23-2023 Bamboo flowsheet Sonya Villa MOTHERCRAFT NURSE Work Phone: [facility] Start: 11-23-2023 End: 11-23-2023 Patient encounter status Sonya Villa MOTHERCRAFT NURSE Work Phone: [facility] Start: 10-11-2023 End: 10-11-2023 ambulatory SONYA VILLA Not Available Start: 10-11-2023 End: 10-11-2023 Office outpatient visit 15 minutes Sonya Villa MOTHERCRAFT NURSE Work Phone: [facility] Comment on [...] 04-05-2023 Patient encounter status Huyen any Villa MOTHERCRAFT NURSE Work Phone: [facility] Start: 03-03-2023 End: 03-03-2023 ambulatory [...] 04-24-2019 Emergency department patient visit UNKNOWN PROVIDER Facility:[facility] Start: 04-05-2018 End: 04-05-2018 Emergency department patient visit NO FAMILY DOCTOR NO FAMILY DOCTOR Facility:[facility] [employer] Start: 02-01-2018 End: 02-02-2018 Patient encounter procedure [facility] Start: 01-31-2018 End: 02-01-2018 Patient encounter procedure [facility] Start: 01-30-2018 End: 01-31-2018 Patient encounter procedure [facility] Start: 01-29-2018 End: 01-30-2018 Patient encounter procedure TINA A DIANNE [facility] Start: 01-28-2018 End: 01-29-2018 Patient encounter [facility] Start: 01-27-2018 End: 01-28-2018 [facility] Start: 01-26-2018 End: 01-27-2018 [facility] Start: 01-25-2018 End: 01-26-2018 [facility] Start: 01-24-2018 End: 01-25-2018 [facility] Start: 01-23-2018 End: 01-24-2018 [facility] Start: 01-22-2018 End: 01-23-2018 [facility] Start: 01-21-2018 End: 01-22-2018 [facility] Start: 01-20-2018 End: 01-21-2018 [facility] Start: 01-19-2018 End: 01-20-2018 [facility] Start: 01-18-2018 End: 01-19-2018 Patient encounter procedure TINA A DIANNE [facility] Start: 01-17-2018 End: 01-18-2018 [facility] Start: 01-16-2018 End: 01-17-2018 [facility] Start: 01-15-2018 End: 01-16-2018 [facility] Start: 01-14-2018 End: 01-15-2018 [facility] Start: 01-13-2018 End: 01-14-2018 [facility] Start: 01-12-2018 End: 01-13-2018 Patient encounter procedure TINA A [facility] Start: 01-11-2018 End: 01-12-2018 Patient encounter procedure TINA A [facility] Start: 01-10-2018 End: 01-11-2018 Patient encounter procedure TINA A [facility] Start: 01-09-2018 End: 01-10-2018 Patient encounter procedure [facility] Start: 01-08-2018 End: 01-09-2018 Patient encounter procedure TINA Renetta [facility] Start: 01-07-2018 End: 01-08-2018 Patient encounter procedure [facility] Start: 01-06-2018 End: 01-07-2018 Patient encounter procedure [facility] Start: 01-05-2018 End: 01-06-2018 Patient encounter procedure [facility] Start: 12-26-2017 End: 01-04-2018 Evaluation and management of inpatient [facility] Start: 12-25-2017 End: 12-25-2017 Emergency department patient visit [facility] Procedures Date Procedure Procedure Detail Performing Clinician Start: 08-25-2022 Microscopic observat ion [Identifier] in Cervix by Cyto stain Sonya Villa MOTHERCRAFT NURSE Work Phone: Start: 04-24-2019 DISCHARGE PATIENT UNKNO [...] RT VERO Start: 01-01-2018 NURSING COMMUNICATION Y 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 age 5 yr/> VERO BAGHDY Start: 12-31-2017 [...] OXIMETRY, CONTINUOUS VERO BAGHDY Start: 12-29-2017 CYTOLOGY, NON-ANALYTICS ANALYST YACOU B BAGHDY Start: 12-29-2017 INCENTIVE SPIROMETRY [...] malign ant neoplasm of cervix HPV/Cotest [facility] Start: 08-26-2027 Screening for malign ant neoplasm of cervix [facility] Start: 03-13-2024 End: 03-13-2024 Patient encounter procedure 03/13/2024 2:30 PM EST Office Visit [facility] [address] [place] [address] Sonya Villa, MOTHERCRAFT NURSE [address] [place] [address] [facility] Start: 12-28-2023 End: 12-28-2023 Patient encounter procedure 12/28/2023 3:30 PM EST Office Visit [facility] [address] [place] [address] Sonya Villa, MOTHERCRAFT NURSE [address] [place] [address] [facility] Start: 11-23-2023 End: 11-23-2023 Patient encounter procedure 11/23/2023 3:30 PM EDT Office Visit [facility] [address] [place] [address] Sonya Villa, MOTHERCRAFT NURSE [address] [place] [address] Blood pressure elevated without history of HTN (Primary Dx); Morbid obesity (CMS/HCC) [facility] Comment on above: Blood pressure eleva yue without history of HTN (Primary Dx); Morbid obesity (CMS/HCC) Start: 11-23-2023 End: 11-22-2024 CBC W Auto Differential panel - Blood CBC and differential Lab Routine Blood pressure elevated without history of HTN Encounter for wellness examination in adult Expected: 11/23/2023 (Approximate), Expires: 11/22/2024 [facility] Comment on above: Expected: 11/23/2023 (Approximate), Expires: 11/22/2024 Start: 11-23-2023 End: 11-22-2024 Comprehensive metabolic 2000 panel - Serum or Plasma Comprehensive metabolic panel Lab Routine Blood pressure elevated without history of HTN Encounter for wellness examination in adult Expected: 11/23/2023 (Approximate), Expires: 11/22/2024 [facility] Comment on above: Expected: 11/23/2023 (Approximate), Expires: 11/22/2024 Start: 11-23-2023 End: 11-22-2024 Hemoglobin A1c/Hemoglobin.total in Blood Hemoglobin A1c Lab Routine Encounter for wellness examination in adult Expected: 11/23/2023 (Approximate), Expires: 11/22/2024 [facility] Comment on above: Expected: 11/23/2023 (Approximate), Expires: 11/22/2024 Start: 11-23-2023 End: 11-22-2024 Lipid 1996 panel - Serum or Plasma Lipid panel Lab Routine Encounter for wellness examination in adult Expected: 11/23/2023 (Approximate), Expires: 11/22/2024 [facility] Comment on above: Expected: 11/23/2023 (Approximate), Expires: 11/22/2024 Start: 11-23-2023 End: 11-22-2024 TSH W/REFLEX TO FT4 TSH W/REFLEX TO FT4 Lab Routine Blood pressure elevated without history of HTN Encounter for wellness examination in adult Expected: 11/23/2023 (Approximate), Expires: 11/22/2024 [facility] Work Phone: Comment on above: Expected: 11/23/2023 (Approximate), Expires: 11/22/2024 Start: 11-11-2023 End: 11-11-2023 Patient encounter procedure 11/11/2023 3:30 PM EDT Office Visit [facility] [address] [place] [address] Sonya Villa NP [address] [place] [address] [facility] Start: 10-17-2023 Influenza vaccination Influenza Vacc ine (#1) [facility] Comprehensive metabo lic 2000 panel - Serum or Plasma Comprehensive metabolic panel Lab Routine Primary hypertension ([facility]/HCC) Ordered: 03/09/2024 [facility] Work Phone: Comment on above: Ordered: 03/09/2024 Immunizations Immunization Date Immunization Notes Care Provider Segundo gardner 03-11-2018 influenza, injectabl e, quadrivalent, contains preservative Sonya Villa MOTHERCRAFT NURSE Work Phone: [facility] 03-11-2018 influenza virus vaccine, unspecified formulation Sonya Dorantrick MOTHERCRAFT NURSE Work Phone: [facility] Payers Date Payer Category Payer Unknown 2022 Medicaid [id number] 2018 Medicaid [id number] 2017 Medicaid ACUTE 04-15-2016 Medicaid [id number] 1985 Unknown [id number] 2.16.84 0.1.891807.3.579.2.185 1985 Unknown [id number] 2.16.8 40.1.549857.3.579.2.182 1985 Unknown [id number] 2.16. 840.1.748484.3.579.2.732 1985 Unknown [id number] 2.16.84 0.1.903570.3.579.2.593 1985 Unknown [id number] 2.16.84 0.1.274669.3.579.2.593 1985 Unknown [id number] 2.16.84 0.1.439766.3.579.2.593 1985 Unknown [id number] 2.16.84 0.1.563905.3.579.2.593 1985 Unknown [id number] 2.16.84 0.1.345266.3.579.2.593 1985 Unknown [id number] 2.16. 840.1.996412.3.579.2.196 1985 Unknown [id number] 2.16. 840.1.585537.3.579.2.196 1985 Unknown [id number] 2.16. 840.1.495627.3.579.2.196 1985 Unknown [id number] 2.16.84 0.1.782306.3.579.2.1258 1985 Unknown [id number] 2.16.84 0.1.645030.3.579.2.1258 1985 Unknown [id number] 2.16.84 0.1.282220.3.579.2.1258 1985 Unknown [id number] 2.16.84 0.1.908325.3.579.2.1258 1985 Unknown [id number] 2.16.84 0.1.180834.3.579.2.1258 1985 Unknown [id number] 2.16.84 0.1.059721.3.579.2.1258 1985 Unknown [id number] 2.16.84 0.1.434957.3.579.2.1258 1985 Unknown [id number] 2.16.84 0.1.454378.3.579.2.1258 1985 Unknown [id number] 2.16.84 0.1.190859.3.579.2.1258 1985 Unknown [id number] 2.16.84 0.1.315228.3.579.2.1258 1985 Unknown [id number] 2.16.840 .1.316242.3.579.2.1258 1985 Unknown [id number] 2.16.840 .1.707854.3.579.2.1258 1985 Unknown [id number] 2.16.840 .1.439560.3.579.2.1258 1985 Unknown [id number] 2.16.840 .1.477944.3.579.2.1258 1985 Unknown [id number] 2.16.840. 1.464070.3.579.2.1259 02-15-1959 Unknown [id number] Self-pay Unknown [id number] 2.16.8 40.1.188923.3.579.2.355 Social History Date Type Detail Facility Start: 08-12-2023 Tobacco smoking stat [facility] Occasional tobacco smoker [facility] History of [...] Comprehensive metabolic panel documented in this encounter [facility] Instructions 03-09-2024 Patient Instructions Note Date & Type Note Facility 03-09-2024 Instructions Sonya Villa NP - 03/09/2024 2:30 PM EST [...] Opioid use disorder in remission Follows with [facility]. Was seeing Hope Jimenez. Currently takes Suboxone [...] y.o. female who presents for Follow-up (From [facility] ). HPI 10 months post Is [...] 1 % cream Opioid abuse, in remission ([facility]) documented in this encounter [facility] Instructions 11-23-2023 Patient Instructions Note [...] black coffee ok. documented in this encounter [facility] History of Present illness Narrative 10-11-2023 [...] management - Primary Pt meets qualifications of [facility] 4730-12-19 for weight loss. BMI>30 or [...] sleep per night. documented in this encounter [facility] Instructions 10-11-2023 Patient Instructions Note [...] day. Consider tracking your food intake on MySimtrolinessPal or LoseIt Water: Increase water intake; GOAL [...] Call about Acupuncture!!! documented in this encounter [facility] Healthcare Evaluation note Note Date & Type Note Facility Evaluation note Diagnosis Blood pressure elevated without history of HTN- Primary Morbid obesity ([facility]) Morbid obesity Encounter for wellness examination in adult Tinea pedis of both feet Opioid abuse, in remission ([facility]) Opioid abuse, in remission documented in this encounter [facility] Healthcare Evaluation note Note Date & [...] section and content) DATE CREATED AUTHOR 02/04/2018 [facility] DATE CREATED AUTHOR AUTHOR'S ORGANIZ ATION 02/19/2018 [facility] DATE CREATED AUTHOR AUTHOR'S ORGANIZ ATION 05/02/2018 [facility] DATE CREATED AUTHOR AUTHOR'S ORGANIZ ATION 03/15/2021 [facility] DATE CREATED AUTHOR AUTHOR'S ORGANIZ ATION 06/29/2022 [facility] DATE CREATED AUTHOR AUTHOR'S ORGANIZ ATION 07/25/2022 [facility] DATE CREATED AUTHOR AUTHOR'S ORGANIZ ATION 11/25/2023 [facility] dical Specialists [employer] Care Teams (unrecognized sec tion and content) Metal Expediter Relationship Specialty Start Date End Date Navarro Haider MD [address] [place] [phone] PCP - General Family Medicine 09/15/23 Sonya Villa NP [address] [place] [phone] Nurse Practitioner Family Medicine 09/15/23 Metal Expediter Relationship Specialty Start Date End Date Navarro Haider MD [address] [place] [phone] PCP - General Family Medicine 09/15/23 Sonya Villa NP [address] [place] [phone] Nurse Practitioner Family Medicine 09/15/23 Metal Expediter Relationship Specialty Start Date End Date Navarro Haider MD [address] [place] [phone] PCP - General Family Medicine 09/15/23 Sonya Villa NP [address] [place] [phone] Nurse Practitioner Family Medicine 09/15/23 Metal Expediter Relationship Specialty Start Date End Date Navarro Haider MD [address] [place] [phone] PCP - General Family Medicine 09/15/23 Sonya Villa NP [address] [place] [phone] Nurse Practitioner Family Medicine 09/15/23 Metal Expediter Relationship Specialty Start Date End Date Navarro Haider MD [address] [place] [phone] PCP - General Family Medicine 09/15/23 Sonya Villa NP [address] [place] [phone] Nurse Practitioner Family Medicine 09/15/23 Metal Expediter Relationship Specialty Start Date End Date Navarro Haider MD [address] [place] [phone] PCP - General Family Medicine 09/15/23 Sonya Villa NP [address] [place] [phone] Nurse Practitioner Family Medicine 09/15/23 Reason for [...] ON THE PRIMARY CLINICAL RECORDS. [facility] [employer] [facility]. provides no warranty or guarantee of the accuracy or completeness of information in this document.
--- NOTE | 2024-03-11 13:59 | ED.SKABFB1 ---
HPI - Skin/Abscess/Foreign Bdy General Chief complaint: Skin/Abscess/Foreign Body Stated complaint: LOCALIZED SWELLING Time Seen by Provider: 03/11/24 13:06 Source: patient Mode of arrival: walk-in History of Present Illness HPI narrative: The patient presents complaining of pain and swelling of the right thumb. She told me that this time of year, she commonly has dryness and cracking of the fingertips. In this instance she is concerned that there may have been some dirt or other debris that got in there and cause infection. She contacted her primary care provider and was prescribed topical antibiotic ointment and was told to soak the thumb. She also was prescribed oral Keflex but did not start that yet because she has concerns about allergy she has had in the past when taking antibiotic, specifically penicillin and Bactrim. No systemic symptoms such as fever or chills. She has some swelling noted along the thumbnail on the right thumb and asked if it could be lanced . Related Data Home Medications ?Medication ?Instructions ?Recorded ?Confirmed doxylamine succinate 25 mg tablet 25 mg PO .hs 09/05/22 01/12/23 (Nighttime Sleep-Aid (doxylamine)) vit no.95-ferrous 1 tab PO DAILY 09/05/22 04/14/23 fumarate 28 mg-folic acid 800 mcg tablet () albuterol sulfate 90 mcg/actuation 2 puff inhalation Q4H PRN 04/14/23 04/14/23 aerosol inhaler shortness of breath or wheezing fluticasone propionate 50 2 spray intranasal .morning 04/14/23 04/14/23 mcg/actuation nasal spray,suspension buprenorphine 8 mg-naloxone 2 mg film 03/11/24 sublingual film doxycycline hyclate 100 mg tablet mg 03/11/24 hydrochlorothiazide 12.5 mg tablet mg 03/11/24 losartan 25 mg tablet mg 03/11/24 mupirocin 2 % topical ointment topical 03/11/24 Previous Rx's ?Medication ?Instructions ?Recorded ibuprofen 800 mg tablet 800 mg PO Q8H PRN pain 14 days #40 01/13/23 tabs Allergies Allergy/AdvReac Type Severity Reaction Status Date / Time Penicillins Allergy Severe Anaphylaxis Verified 04/20/23 18:43 acetaminophen (From Vicodin) AdvReac Mild Vomiting Verified 04/20/23 18:43 hydrocodone (From Vicodin) AdvReac Mild Vomiting Verified 04/20/23 18:43 CODIENE AdvReac Mild Nausea Uncoded 04/20/23 18:43 TRAMADOL AdvReac Mild Vomiting Uncoded 04/20/23 18:43 PFSH PFS Social History Smoking status: Current every day smoker What tobacco products do you use: cigarettes Packs per day: 1 Cigarettes per day: 20 Little interest or pleasure in doing things: not at all Feeling down, depressed, or hopeless: not at all Exam Narrative Exam Narrative: Nurses notes and vital signs reviewed and patient is not hypoxic. afebrile General: Well-appearing and in no apparent distress. Skin: Warm, dry, no pallor noted. Eye: Pupils are equal, round and EOMI. No scleral icterus. Cardiovascular: Normal peripheral perfusion. Respiratory: No accessory muscle use or respiratory distress. Musculoskeletal: Right thumb= 4 mm x 1 cm area of what appears to be a blister along the nail line of the dorsal right thumb on the side of the second metacarpal. There is no streaking proximally although there is some erythema at the site. There is some induration as well. No drainage at this time. All fingers of the right hand with normal ROM, no hand edema/swelling or proximal streaking Neurological: A&O x4. No cranial nerve dysfunction observed. No truncal ataxia. Moves all extremities. Sensation intact. Psychiatric: Cooperative and interactive. Normal mood and affect. Constitutional Vital Signs, click to edit/add: Last Vital Signs Temp 98.5 F 03/11/24 12:57 Pulse 96 H 03/11/24 12:57 Resp 16 03/11/24 12:57 BP 151/97 H 03/11/24 12:57 Pulse Ox 100 03/11/24 12:57 Course Vital Signs Vital signs: Vital Signs Temperature 98.5 F 03/11/24 12:57 Pulse Rate 96 H 03/11/24 12:57 Respiratory Rate 16 03/11/24 12:57 Blood Pressure 151/97 H 03/11/24 12:57 Pulse Oximetry 100 03/11/24 12:57 Temperature 98.5 F 03/11/24 12:57 Pulse Rate 96 H 03/11/24 12:57 Respiratory Rate 16 03/11/24 12:57 Blood Pressure 151/97 H 03/11/24 12:57 Pulse Oximetry 100 03/11/24 12:57 MDM - Skin/Abscess/Foreign Bdy MDM Narrative Medical decision making narrative: The patient requested an incision and drainage -I warned her that this look like a blister and I doubt any purulent material would be expressed. She also had concerns about taking the oral cephalexin at home, so I asked her to take it in the emergency department so she can be monitored for any potential allergic reaction. Using a sterile 11 blade I incised a very small area at the point of the blister . Serous fluid was released and a tiny amount of blood. We applied pressure to the area and I placed a bandage in that area. No purulent material was discharged in the blister was drained. The patient was monitored in the emergency department to ensure that she did not have an allergic reaction to the oral Keflex she took. She was discharged home with recommendation to continue to take oral cephalexin as well as use topical antibiotic ointment and continue to soak the area as directed by her primary care physician she can see her primary care physician for follow-up if she has any additional questions or return to the emergency department if she feels it is emergently worse. Discharge Plan Discharge Chief Complaint: Skin/Abscess/Foreign Body Clinical Impression: Acute paronychia of right thumb Patient Disposition: Home, Self-Care Time of Disposition Decision: 14:04 Prescriptions / Home Meds: No Action albuterol sulfate 90 mcg/actuation HFA aerosol inhaler 2 puff INHALATION Q4H PRN (Reason: shortness of breath or wheezing) fluticasone propionate 50 mcg/actuation spray,suspension 2 spray INTRANASAL .morning Nighttime Sleep-Aid (doxylamn) 25 mg tablet 25 mg PO .hs PNV cmb#95-ferrous fumarate-FA [] 28 mg iron- 800 mcg tablet 1 tab PO DAILY ibuprofen 800 mg tablet 800 mg PO Q8H PRN (Reason: pain) 14 Days Qty: 40 0RF losartan 25 mg tablet mupirocin 2 % ointment TOPICAL doxycycline hyclate 100 mg tablet hydrochlorothiazide 12.5 mg tablet buprenorphine-naloxone 8-2 mg film Print Language: Scottish Instructions: Paronychia (ED) Referrals: SONYA DAVIS [Primary Care Provider] - 1 week
== END 2024-03-11 14:23 | disposition home or self-care (01) ==
PROVIDERS: Emergency Provider Emergency Medicine
DX: L03.011 Cellulitis of right finger (principal); F17.210 Nicotine dependence, cigarettes, uncomplicated
CPT/HCPCS: 10060; 99283

== ENCOUNTER 2024-03-20 16:44 | Outpatient (OUT) | payer MEDICAID, SELFPAY ==
--- OUTSIDE RECORDS SUMMARY | 2024-03-20 16:48 | XMS_ITS | CCD ---
Author Organization [facility] Team Providers Care Data Processing Consultant Name Role Phone IVAN FERNANDEZ Unavailable Unavailable [...] NO FAMILY DOCTOR Primary Care Unavailable GABO HAEYS Attending Unavailable PROVIDER, UNKNOWN Admitting Unavailable YUMIKO [...] DR RODRIGO Viveros Consulting Unavailable REQUEST, DR FRIEND LISTED Consulting Unavaila ble FAWWAD, KISER H [...] Garland MD, Referring Unavailable Meggan MCKEON, Suresh Stalligns Attending Unavaila Navarro Fuentes MD Primary Care Provider Allen CARE CENTER MANAGER, Sonya Unavailable SONYA VILLA Attending Unavailabl e ALLEN, SONYA Attending Unavailabl e FAWWAD, KISER Attending Unavailable FAWWAD, IKSER Attending Unavailable FAWWAD, KISER Attending Unavailable AICURIAH KEE Attending Unavailable FAWWAD, KISER Attending Unavailable FAWWAD, KISER Attending Unavailable FAWWAD, KISER Attending Unavailable SONYA VILLA Attending Unavailabl e VILLA, SONYA Attending Unavailabl e Allergies Allergy Classification Reported Allergen(s) Allergy Type Date of Onset Reaction(s) Facility (13 sources) Acetaminophen / HYDROcodone; Translations: [HYDROCODONE-ACETAMI NOPHEN] Drug Allergy 10-21-19 13 Unknown [facility] Repository (14 sources) traMADol; Translations: [TRAMADOL] Drug Allergy 10-21-19 13 Unknown [facility] Repository (1 source) Acetaminophen / HYDROcodone Drug Allergy 08-28-19 16 [facility] Repository (1 source) Codeine Drug Allergy 05-08-19 09 [facility] Repository (1 source) Penicillin Drug Allergy 06-15-19 20 [facility] Repository (12 sources) Codeine Drug Allergy 07-29-19 23 [facility] Work Phone: (12 sources) Penicillin G Drug Allergy 12-30-19 23 [facility] (12 sources) Penicillins Propensity to adverse reactions 07-29-19 23 [facility] Healthcare (12 sources) Sulfamethoxazole / Trimethoprim Drug Allergy 08-12-19 24 [facility] Healthcare Work Phone: (12 sources) Vancomycin Drug Allergy 12-27-19 18 Anaphylaxis [facility] Medications Current Medications Medication Drug Class(es) Dates Sig (Normalized) Sig (Original) buprenorphine 8 mg / naloxone 2 mg sublingual film (12 sources) Partial Opioid Agonist, Opioid Antagonist Start: [...] hyclate 100 mg delayed release oral tablet (6 sources) Tetracycline-clas s Drug Start: 03-09-2024 End: [...] 12/16/2023 Active etonogestrel 68 mg drug implant (12 sources) Progestin etonogestrel-elu ting (Nexplanon) 68 mg contraceptive implant 1 each by Implant route 1 (one) time Active fluticasone propionate 0.05 mg/actuat metered dose nasal spray (12 sources) Corticosteroid Start : 04-05 take 2 spray(s) nasal route in the morning fluticasone (Flonase) 50 MCG/ACT nasal spray Indications: Acute cough , Chronic allergic rhinitis Administer 2 sprays into each nostril in the morning. Shake gently. Before first use, prime pump. After use, clean tip and replace cap.. 16 g 2 04/05/2023 Active hydroCHLOROthiazide 12.5 mg oral tablet (9 sources) Thiazide Diuretic Start : 11-22 End: 11-22 take 1 tablet by mouth once daily hydroCHLOROthiazide (HYDRODiuril) 12.5 MG tablet Indications: Blood pressure elevated without history of HTN Take 1 tablet (12.5 mg) by mouth Daily 30 tablet 11 11/23/2023 11/22/2024 Active losartan potassium 25 mg oral tablet (5 sources) Angiotensin 2 Receptor Ketan Start : 03-09 End: 03-09 take 1 tablet by mouth once daily losartan (Cozaar) 25 MG tablet Indications: Primary hypertension (CMS/HCC) Take 1 tablet (25 mg) by mouth Daily 30 tablet 11 03/09/2024 03/09/2025 Active mupirocin 0.02 mg/mg topical ointment (5 sources) RNA Synthetase Inhibitor Antibacterial Start : 03-09 End: 03-14 Mupirocin 2 % kit Indications: Acute paronychia of right thumb Apply 1 application topically in the morning and 1 application before bedtime. Do all this for 5 days. 1 kit 03/09/2024 03/14/2024 Active naloxone hydrochloride 40 mg/ml nasal spray (5 sources) Opioid Antagonist Start : 03-02 naloxone [...] to blood loss (chronic)] Onset: 12-25-2017 Chronic Deficiency and other anemia (14 sources) Anemia; Translations: [Anemia, unspecified] Onset: 04-19-2023 04-19-2023 Episodic Disorders of teeth and jaw (1 source) Periapical abscess without sinus Onset: 04-05-2018 Episodic Essential hypertension (7 sources) Essential hypertension; Translations: [Essential (primary) hypertension] Onset: 03-09-2024 03-09-2024 Chronic Fever of unknown origin (1 source) Fever, unspecified; Translations: [Fever, unspecified] Onset: 12-25-2017 Episodic Hepatitis (1 source) Chronic viral hepatitis C; Translations: [CHRONIC VIRAL HEPATITIS C] Onset: 04-23-2022 Chronic Malaise and fatigue (4 sources) Fatigue; Translations: [Other fatigue] Onset: 03-13-2024 03-13-2024 Episodic Menstrual disorders (4 sources) Irregular menstruation, unspecified; Translations: [IRREGULAR MENSTRUATION UNSPECIFIED] Onset: 06-15-2022 Chronic Mycoses (2 sources) Tinea pedis; Translations: [Tinea pedis] 11-23-2023 Episodic Other lower respiratory disease (2 sources) Shortness of breath; Translations: [Shortness of breath] Onset: 04-05-2018 Episodic Other nutritional; endocrine; and metabolic disorders (14 sources) Morbid obesity; Translations: [Morbid (severe) obesity [...] 04-05-2018 Episodic Skin and subcutaneous tissue infections (11 sources) Paronychia of thumb; Translations: [Cellulitis of [...] Date Documented Da te Episodic/Chronic Administrative/social admission (14 sources) Patient encounter status; Translations: [Persons encountering health services in other specified circumstances] Onset: 10-11-2023 10-11-2023 Episodic Bacterial infection; unspecified site (13 sources) Bacteremia; Translations: [History of methicillin resistant Staphylococcus aureus infection] Onset: 12-26-2017 04-05-2023 Episodic Immunizations and screening for infectious disease (12 sources) Hepatitis C antibody test positive; Translations: [Other specified abnormal immunological findings in serum] Onset: 09-22-2022 04-05-2023 Episodic Nonspecific chest pain (12 sources) Chest pain; Translations: [Other chest pain] Onset: 04-19-2023 04-19-2023 Episodic Other bone disease and musculoskeletal deformities (12 sources) Scapulalgia; Translations: [Other specified disorders of bone, shoulder] Onset: 04-19-2023 04-19-2023 Episodic Other circulatory disease (14 sources) Elevated blood-pressure reading without diagnosis of hypertension; Translations: [Elevated blood-pressure reading, without diagnosis of hypertension] Onset: 04-05-2023 04-05-2023 Episodic Other ear and sense organ disorders (12 sources) Lesion of external ear; Translations: [Disorder of left external ear, unspecified] Onset: 05-05-2023 05-05-2023 Episodic Other lower respiratory disease (10 sources) Cough; Translations: [Acute cough] Onset: 04-05-2023 04-05-2023 Episodic Other lower respiratory disease (2 sources) Cough; Translations: [Acute cough] Onset: 04-05-2023 04-05-2023 Episodic Other skin disorders (12 sources) Eruption; Translations: [Rash and other nonspecific skin eruption] Onset: 05-26-2023 05-26-2023 Episodic Other skin disorders (12 sources) Ingrowing nail; Translations: [Ingrowing nail] Onset: 08-12-2023 08-12-2023 Episodic Other skin disorders (12 sources) Skin lesion; Translations: [Disorder of the skin and subcutaneous tissue, unspecified] Onset: 08-12-2023 08-12-2023 Episodic Other upper respiratory infections (13 sources) Acute upper respiratory infection; Translations: [Acute upper respiratory infection, unspecified] Onset: 03-03-2023 03-03-2023 Episodic [place]-; endo-; and myocarditis; cardiomyopathy (except that caused by tuberculosis or sexually transmitted disease) (13 sources) Acute and subacute infective endocarditis; Translations: [Bacterial endocarditis] Onset: 12-26-2017 04-05-2023 Episodic Pulmonary heart disease (12 sources) Septic pulmonary embolism; Translations: [Septic pulmonary embolism without acute cor pulmonale] Onset: 04-05-2023 04-05-2023 Episodic Unclassified (1 source) HIGH GRADE BACTREMIA,GNR MRSA,MULTIPLE PULMONARY NODULES; Translations: [HIGH GRADE BACTREMIA,GNR MRSA,MULTIPLE PULMONARY NODULES] Onset: 01-05-2018 Unclassified (1 source) CONTACT W/AND (SUSP) EXPOS COVID-19; Translations: [CONTACT W/AND (SUSP) EXPOS COVID-19] Onset: 06-16-2022 Results Test Name Value Interpretation Reference Range Facility ALL CBC WITH AUTO DIFFon BASOPHILS ABSOLUTE AUTO 0.1 [facility] Basophils/100 WBC (Bld) 1.5 % 0.2 - 2.0 % [facility] Eosinophils/100 WBC (Bld) 6.4 % 0.9 - 7.0 % [facility] Erythrocyte distribution width (RBC) [Ratio] 13.2 % 11.0 - 15.0 % [facility] Hematocrit (Bld) [Volume fraction] 36.9 % 36.0 - 48.0 % [facility] Hemoglobin (Bld) [Mass/Vol] 12.2 g/dL 12.0 - 16.0 g/dL [facility] IMMATURE GRANULOCYTES ABS AUTO 0.01 [facility] Immature granulocytes/100 WBC (Bld) 0.3 % 0.0 - 0.5 % [facility] Interpretation and review of laboratory results Abnormal [facility] LYMPHOCYTES ABSOLUTE AUTO 0.8 Low [facility] Lymphocytes/100 WBC (Bld) 21.8 % 20.5 - 60.0 % [facility] MCH (RBC) [Entitic mass] 29.6 pg 26.7 - 34.0 pg [facility] MCHC (RBC) [Mass/Vol] 33.1 g/dL 29.9 - 35.2 g/dL [facility] MCV (RBC) [Entitic vol] 89.6 fL 81.0 - 99.0 fL [facility] MONOCYTES ABSOLUTE AUTO 0.3 [facility] Monocytes/100 WBC (Bld) 9.6 % 1.7 - 12.0 % [facility] NEUTROPHILS ABSOLUTE AUTO 2.1 [facility] Neutrophils/100 WBC (Bld) 60.4 % 43.0 - 75.0 % [facility] Platelet mean volume (Bld) [Entitic vol] 10.3 fL 9.5 - 13.5 fL [facility] EO # 0.2 [facility] PLT 139 Low [facility] RBC 4.12 Low [facility] TB WBC 3.4 Low [facility] Otolaryngology Office/Clinic Noteon 07-14-2022 Otolaryngology Office/Clinic [...] Liliane Devries PA-C 07/18/22 11:45 EDT Normal [facility] Otolaryngology Office/Clinic Noteon 07-06-2022 Otolaryngology Office/Clinic [...] g, 0 Refill(s), 07/20/22 15:17:00 EDT, Pharmacy: [facility]/pharmacy #[id number] Medical Decision Making Chronic conditions NOT treated [...] Oral Jitendra (more content not included)... Normal [facility] US PREG TVon 06-26-2022 US PREG [...] Date: 2022-06-26 09:18 Normal [facility] Covid-19 PCR ([facility])on SARS-CoV-2 (COVID-19) RNA JANET+probe Ql (Unsp spec) Not detected Normal NOT DETECTED [facility] Comment on above: Result Comment: This test is not yet approved or cleared by the [place] FDA. When there are no FDA-approved or cleared tests available, and other criteria are met, FDA can make tests available under an emergency access mechanism called an Emergency Use Authorization (EUA). The EUA for this test is supported by the [place] of Health and Human Service's (HHS's) declaration [...] consistent with SARS-CoV-2. Performed By: #### C [facility] #### [facility] [address] [place] [address] Dr. Ja Cohen INFLUENZA A AND B AGon 06-16 INFLUANEGH SEE BELOW Normal [facility] Comment on above: Result Comment: Nega tive for Flu A protein angiten. Infection due to Flu A cannot be ruled out. Flu A angiten in the sample may be below the detection limit of the test. Performed By: #### I NFLUAB #### [facility] [address] [place] [address] Dr. Ja Cohen [facility] SEE BELOW Normal [facility] Comment on above: Result Comment: Nega tive for Flu B protein antigen. Infection due to Flu B cannot be ruled out. Flu B antigen in the sample may be below the detection limit of the test. Performed By: #### I NFLUAB #### [facility] [address] [place] [address] Dr. Ja Cohen INFLUENZA A AG Negative Normal NEGATIVE SEE COMMENT [facility] Comment on above: Performed By: #### I NFLUAB #### [facility] [address] [place] [address] Dr. Ja Cohen INFLUENZA B AG Negative Normal NEGATIVE SEE COMMENT [facility] Comment on above: Performed By: #### I NFLUAB #### [facility] [address] [place] [address] Dr. Ja Cohen SYMPTOMATIC COVID-19 ANTIGEN on 06-16-2022 EUA Statement SEE BELOW Normal [facility] Comment on above: Result Comment: This [...] sooner. Performed By: #### C VDAGS #### [facility] [address] [place] [address] Dr. Ja Cohen SARS-CoV-2 (COVID-19) RNA JANET+probe Ql (Unsp spec) Negative Normal NEGATIVE [facility] Comment on above: Performed By: #### C VDAGS #### [facility] [address], [place] [address] Dr. Ja Cohen PREG QUANT HCGon 06-11-2022 HCG QUANT 56135 mIU/mL Normal [facility] Comment on above: Performed By: #### P REGQNT #### [facility] [address] [address] [address] Ja Cohen HCG RANGE SEE BELOW Normal [facility] Comment on above: Result Comment: 5-50 0.2-1 WEEK 50-500 1-2 WEEKS 100-5,000 2-3 WEEKS 500-10,000 3-4 WEEKS 1,000-50,000 4-5 WEEKS 10,000-100,000 5-6 WEEKS 15,000-200,000 6-8 WEEKS 10,000-100,000 2-3 MONTHS Performed By: #### P REGQNT #### [facility] [address] [address] [address] Ja Cohen ECHOCARDIO M/2D COMPLETEon 0 08-11-2021 ECHOCARDIO M/2D COMPLETE Patient: ALESHA KENNEY Exam Date: 08/11/2021 : 1985 Gender:F Ordering : SHAIKH Addy GARLAND . Admission #: [id number] Family : Order #: [id number] CLICK HERE TO VIEW EXAM ECHOCARDIOGRAM REPORT [...] Area(A4C): 23.40 cm2 Left Atrium Systolic Volume(A2C): 28654 mm3 Left Atrium Systolic Volume(A4C): 24110 mm3 Mitral Valve MV E to A Ratio: 1.90 MV Mean Gradient: 1 mm[Hg] Deceleration [place]: 6410 mm/s2 Mitral Valve A-Wave Peak Velocity: [...] Mederos M.D. on 08/11/2021 at 12:50 Normal [facility] AFB Culture with Stainon AFB Stain SEE NOTE Normal [facility] Comment on above: Result Comment: Nega tive for Acid Fast Bacteria.Less than 5 mL of specimen received.A minimum of 5 mL of sputum or fluid is recommendedfor recovery of acid fast bacilli (AFB).Volumes less than 5 mL are suboptimal and maycompromise recovery of AFB from culture. Final SEE NOTE [facility] Comment on above: Result Comment: Cult ure negative for acid fast bacilliPerformed by [facility],[address] [facility] [place] [address] jqb.Trover, Artur Agustin MD - Lab. Director Preliminary SEE NOTE Normal [facility] Comment on above: Result Comment: Spec imen received and in progress.Positive culture results are called as soon as detected.Final report to follow in seven to eight weeksPerformed by [facility],[address] [place] [address] kgz.Trover, Artur Agustin MD - Lab. Director AFB Stain SEE NOTE [facility] Comment on above: Order Comment: CALL [place] LC1W tel. [phone], called hgb to ramila oseguera rn on 1w [facility] called to and read back by ramila oseguera on 1w, 12/27/201706:44, by RAYSHAWN Result Comment: Nega tive for Acid Fast Bacteria. Order Comment: Bronc h wash RULBronch Wash RUL Final SEE NOTE Normal [facility] Comment on above: Order Comment: Bronc h wash RULBronch Wash RUL Result Comment: Cult ure negative for acid fast bacilliPerformed by [facility],[address] [place] [address] cqd.Trover, Artur Agustin MD - Lab. Director Order Comment: CALL [place] LC1W tel. [phone], called hgb to ramila oseguera rn on 1w by scbHematology results called to and read back by ramila oseguera on 1w, 12/27/201706:44, by RAYSHAWN Basic Metabolic Panelon 01-15 Anion gap 3 molar conc 10 mmol/L Normal 7-13 [facility] Calcium mass conc 8.7 mg/dL Normal 8.6-10.2 [facility] Chloride molar conc 105 mmol/L Normal 98-107 [facility] CO2 molar conc 26 mmol/L Normal 22-29 [facility] Creatinine mass conc 0.60 mg/dL Normal 0.50-0.90 [facility] GFR/1.73 sq M predicted among blacks MDRD vol rate/area (S/P/Bld) mL/min/{1.73_m2} Normal >60 [facility] Comment on above: Result Comment: >60 mL/min/1.73m2 EGFR, calc. for ages 18 and older using theMDRD formula (not corrected for weight), is valid for stablerenal function. GFR/1.73 sq M.predicted MDRD vol rate/area mL/min/{1.73_m2} Normal >60 [facility] Comment on above: Result Comment: >60 mL/min/1.73m2 EGFR, calc. for ages 18 and older using theMDRD formula (not corrected for weight), is valid for stablerenal function. Glucose mass conc 101 mg/dL Normal 74-109 [facility] Potassium molar conc 4.5 mmol/L Normal 3.5-5.1 [facility] Sodium molar conc 141 mmol/L Normal 132-144 [facility] Urea nitrogen mass conc 15 mg/dL Normal 6-20 [facility] CBC With Platelet No Differe ntialon 02-01-2018 Erythrocyte distribution width Auto Ratio (RBC) 23.7 % Critically high 11.5-14.5 [facility] Hematocrit Auto Volume Fraction (Bld) 28.0 % Low 37.0-47.0 [facility] Hemoglobin mass conc (Bld) 9.3 g/dL Low 12.0-16.0 [facility] MCH Auto Entitic mass (RBC) 29.1 pg Normal 27.0-31.3 [facility] MCHC Auto mass conc (RBC) 33.1 % Normal 33.0-37.0 [facility] MCV Auto Entitic volume (RBC) 87.9 fL Normal 82.0-100.0 [facility] Platelets Auto #/vol (Bld) 229 10*3/uL Normal 130-400 [facility] RBC Auto #/vol (Bld) 3.19 10*6/uL Low 4.20-5.40 [facility] WBC Auto #/vol (Bld) 2.7 10*3/uL Low 4.8-10.8 [facility] Culture, Funguson 01-29-2018 Final SEE NOTE Normal [facility] Comment on above: Order Comment: CALL [place] LC1W tel. [phone], called hgb to ramila oseguera rn on 1w by scbHematology results called to and read back by ramila oseguera on 1w, 12/27/201706:44, by RAYSHAWN Result Comment: Cult ure negative for FungiPerformed by [facility],[address] [place] [address],[place] [address] hhe.Trover, Artur Agustin MD - Lab. Director Basic Metabolic Panelon 01-15 Anion gap 3 molar conc 9 mmol/L Normal 7-13 [facility] Calcium mass conc 9.5 mg/dL Normal 8.6-10.2 [facility] Chloride molar conc 106 mmol/L Normal 98-107 [facility] CO2 molar conc 27 mmol/L Normal 22-29 [facility] Creatinine mass conc 0.71 mg/dL Normal 0.50-0.90 [facility] GFR/1.73 sq M predicted among blacks MDRD vol rate/area (S/P/Bld) mL/min/{1.73_m2} Normal >60 [facility] Comment on above: Result Comment: >60 mL/min/1.73m2 EGFR, calc. for ages 18 and older using theMDRD formula (not corrected for weight), is valid for stablerenal function. GFR/1.73 sq M.predicted MDRD vol rate/area mL/min/{1.73_m2} Normal >60 [facility] Comment on above: Result Comment: >60 mL/min/1.73m2 EGFR, calc. for ages 18 and older using theMDRD formula (not corrected for weight), is valid for stablerenal function. Glucose mass conc 93 mg/dL Normal 74-109 [facility] Potassium molar conc 4.7 mmol/L Normal 3.5-5.1 [facility] Sodium molar conc 142 mmol/L Normal 132-144 [facility] Urea nitrogen mass conc 14 mg/dL Normal 6-20 [facility] CBC With Platelet and Differ entialon 01-25-2018 Anisocytosis Auto Ql (Bld) PRESENT Normal [facility] Erythrocyte distribution width Auto Ratio (RBC) 28.7 % Critically high 11.5-14.5 [facility] Hematocrit Auto Volume Fraction (Bld) 24.9 % Low 37.0-47.0 [facility] Hemoglobin mass conc (Bld) 8.3 g/dL Low 12.0-16.0 [facility] MCH Auto Entitic mass (RBC) 28.2 pg Normal 27.0-31.3 [facility] MCHC Auto mass conc (RBC) 33.1 % Normal 33.0-37.0 [facility] MCV Auto Entitic volume (RBC) 85.0 fL Normal 82.0-100.0 [facility] Platelets Auto #/vol (Bld) 225 10*3/uL Normal 130-400 [facility] RBC Auto #/vol (Bld) 2.93 10*6/uL Low 4.20-5.40 [facility] Basophils Auto #/vol (Bld) 0.0 10*3/uL Normal 0.0-0.2 [facility] Basophils/100 WBC Auto (Bld) 1.0 % Normal [facility] Eosinophils Auto #/vol (Bld) 0.3 10*3/uL Normal 0.0-0.7 [facility] Eosinophils/100 WBC Auto (Bld) 5.4 % Normal [facility] Lymphocytes Auto #/vol (Bld) 1.7 10*3/uL Normal 1.0-4.8 [facility] Lymphocytes/100 WBC Auto (Bld) 37.1 % Normal [facility] Monocytes Auto #/vol (Bld) 0.2 10*3/uL Normal 0.2-0.8 [facility] Monocytes/100 WBC Auto (Bld) 5.1 % Normal [facility] Neutrophils Auto #/vol (Bld) 2.4 10*3/uL Normal 1.4-6.5 [facility] Neutrophils/100 WBC Auto (Bld) 51.4 % Normal [facility] WBC Auto #/vol (Bld) 4.7 10*3/uL Low 4.8-10.8 [facility] Culture, Funguson 01-24-2018 Final SEE NOTE Normal [facility] Comment on above: Order Comment: Bronc h Wash LLLBronch Wash LLL Result Comment: Cult ure POSITIVE forYeast not Cryptococcus speciesPerformed by [facility],[address] [facility] [place] [address] ohd.Trover, Artur Agustin MD - Lab. Director Preliminary SEE NOTE Normal [facility] Comment on above: Order Comment: Bron h Wash LLLBronch Wash LLL Result Comment: Cult ure POSITIVE forYeast not Cryptococcus speciesPerformed by [facility],[address] [facility] [place] [address] jxw.Trover, Artur Agustin MD - Lab. Director Basic Metabolic Panelon Anion gap 3 molar conc 10 mmol/L Normal 7-13 [facility] Calcium mass conc 9.4 mg/dL Normal 8.6-10.2 [facility] Chloride molar conc 102 mmol/L Normal 98-107 [facility] CO2 molar conc 27 mmol/L Normal 22-29 [facility] Creatinine mass conc 0.70 mg/dL Normal 0.50-0.90 [facility] GFR/1.73 sq M predicted among blacks MDRD vol rate/area (S/P/Bld) mL/min/{1.73_m2} Normal >60 [facility] Comment on above: Result Comment: >60 mL/min/1.73m2 EGFR, calc. for ages 18 and older using theMDRD formula (not corrected for weight), is valid for stablerenal function. GFR/1.73 sq M.predicted MDRD vol rate/area mL/min/{1.73_m2} Normal >60 [facility] Comment on above: Result Comment: >60 mL/min/1.73m2 EGFR, calc. for ages 18 and older using theMDRD formula (not corrected for weight), is valid for stablerenal function. Glucose mass conc 73 mg/dL Low 74-109 [facility] Potassium molar conc 4.6 mmol/L Normal 3.5-5.1 [facility] Sodium molar conc 139 mmol/L Normal 132-144 [facility] Urea nitrogen mass conc 15 mg/dL Normal 6-20 [facility] CBC With Platelet No Differe ntialon 01-21-2018 Erythrocyte distribution width Auto Ratio (RBC) 24.9 % Critically high 11.5-14.5 [facility] Hematocrit Auto Volume Fraction (Bld) 24.4 % Low 37.0-47.0 [facility] Hemoglobin mass conc (Bld) 8.1 g/dL Low 12.0-16.0 [facility] MCH Auto Entitic mass (RBC) 28.3 pg Normal 27.0-31.3 [facility] MCHC Auto mass conc (RBC) 33.3 % Normal 33.0-37.0 [facility] MCV Auto Entitic volume (RBC) 85.0 fL Normal 82.0-100.0 [facility] Platelets Auto #/vol (Bld) 184 10*3/uL Normal 130-400 [facility] RBC Auto #/vol (Bld) 2.88 10*6/uL Low 4.20-5.40 [facility] WBC Auto #/vol (Bld) 4.6 10*3/uL Low 4.8-10.8 [facility] Basic Metabolic Panelon 11-2 Anion gap 3 molar conc 10 mmol/L Normal 7-13 [facility] Calcium mass conc 9.3 mg/dL Normal 8.6-10.2 [facility] Chloride molar conc 106 mmol/L Normal 98-107 [facility] CO2 molar conc 26 mmol/L Normal 22-29 [facility] Creatinine mass conc 0.93 mg/dL Critically high 0.50-0.90 [facility] GFR/1.73 sq M predicted among blacks MDRD vol rate/area (S/P/Bld) mL/min/{1.73_m2} Normal >60 [facility] Comment on above: Result Comment: >60 mL/min/1.73m2 EGFR, calc. for ages 18 and older using theMDRD formula (not corrected for weight), is valid for stablerenal function. GFR/1.73 sq M.predicted MDRD vol rate/area mL/min/{1.73_m2} Normal >60 [facility] Comment on above: Result Comment: >60 mL/min/1.73m2 EGFR, calc. for ages 18 and older using theMDRD formula (not corrected for weight), is valid for stablerenal function. Glucose mass conc 103 mg/dL Normal 74-109 [facility] Potassium molar conc 4.5 mmol/L Normal 3.5-5.1 [facility] Sodium molar conc 142 mmol/L Normal 132-144 [facility] Urea nitrogen mass conc 17 mg/dL Normal 6-20 [facility] CBC With Platelet and Differ entialon 01-11-2018 Anisocytosis Auto Ql (Bld) PRESENT Normal [facility] Erythrocyte distribution width Auto Ratio (RBC) 23.8 % Critically high 11.5-14.5 [facility] Hematocrit Auto Volume Fraction (Bld) 25.6 % Low 37.0-47.0 [facility] Hemoglobin mass conc (Bld) 8.4 g/dL Low 12.0-16.0 [facility] Hypochromia PRESENT Normal [facility] MCH Auto Entitic mass (RBC) 26.5 pg Low 27.0-31.3 [facility] MCHC Auto mass conc (RBC) 32.8 % Low 33.0-37.0 [facility] MCV Auto Entitic volume (RBC) 80.9 fL Low 82.0-100.0 [facility] Platelets Auto #/vol (Bld) 259 10*3/uL Normal 130-400 [facility] RBC Auto #/vol (Bld) 3.16 10*6/uL Low 4.20-5.40 [facility] Basophils Auto #/vol (Bld) 0.1 10*3/uL Normal 0.0-0.2 [facility] Basophils/100 WBC Auto (Bld) 1.5 % Normal [facility] Eosinophils Auto #/vol (Bld) 0.2 10*3/uL Normal 0.0-0.7 [facility] Eosinophils/100 WBC Auto (Bld) 4.2 % Normal [facility] Lymphocytes Auto #/vol (Bld) 1.9 10*3/uL Normal 1.0-4.8 [facility] Lymphocytes/100 WBC Auto (Bld) 40.0 % Normal [facility] Monocytes Auto #/vol (Bld) 0.1 10*3/uL Low 0.2-0.8 [facility] Monocytes/100 WBC Auto (Bld) 3.1 % Normal [facility] Neutrophils Auto #/vol (Bld) 2.4 10*3/uL Normal 1.4-6.5 [facility] Neutrophils/100 WBC Auto (Bld) 51.2 % Normal [facility] WBC Auto #/vol (Bld) 4.6 10*3/uL Low 4.8-10.8 [facility] Culture, Funguson 01-08-2018 Preliminary SEE NOTE Normal [facility] Comment on above: Order Comment: CALL [facility] LC1W tel. [phone], called hgb to ramila oseguera rn on 1w by scematology results called to and read back by ramila oseguera on 1w, 12/27/201706:44, by BON Result Comment: No Nathan starks, culture still in progress.Performed by [facility],[address] [place] [id number] nur.Trover, Artur Agustin MD - Lab. Director CBC With Platelet and Differ entialon 01-04-2018 Anisocytosis Auto Ql (Bld) 2+ Normal [facility] Bands 2 % Low 5-11 [facility] Basophils Auto #/vol (Bld) 0.1 10*3/uL Normal 0.0-0.2 [facility] Basophils/100 WBC Auto (Bld) 1.0 % Normal [facility] Eosinophils Auto #/vol (Bld) 0.2 10*3/uL Normal 0.0-0.7 [facility] Eosinophils/100 WBC Auto (Bld) 2.0 % Normal [facility] Lymphocytes Auto #/vol (Bld) 0.7 10*3/uL Low 1.0-4.8 [facility] Lymphocytes/100 WBC Auto (Bld) 9.0 % Normal [facility] Macrocytic 1+ Normal [facility] Microcytic 1+ Normal [facility] Monocytes Auto #/vol (Bld) 0.0 10*3/uL Low 0.2-0.8 [facility] Monocytes/100 WBC Auto (Bld) 4.4 % Normal [facility] Neutrophils Auto #/vol (Bld) 6.8 10*3/uL Critically high 1.4-6.5 [facility] Neutrophils/100 WBC Auto (Bld) 86.0 % Normal [facility] Ovalocytes 1+ Normal [facility] Platelet Slide Review Normal Normal [facility] Poikilocytosis 2+ Normal [facility] Tear Drop Cells 1+ Normal [facility] Erythrocyte distribution width Auto Ratio (RBC) 20.4 % Critically high 11.5-14.5 [facility] Hematocrit Auto Volume Fraction (Bld) 22.7 % Low 37.0-47.0 [facility] Hemoglobin mass conc (Bld) 7.4 g/dL Low 12.0-16.0 [facility] MCH Auto Entitic mass (RBC) 26.3 pg Low 27.0-31.3 [facility] MCHC Auto mass conc (RBC) 32.5 % Low 33.0-37.0 [facility] MCV Auto Entitic volume (RBC) 80.8 fL Low 82.0-100.0 [facility] Platelets Auto #/vol (Bld) 234 10*3/uL Normal 130-400 [facility] RBC Auto #/vol (Bld) 2.81 10*6/uL Low 4.20-5.40 [facility] WBC Auto #/vol (Bld) 7.7 10*3/uL Normal 4.8-10.8 [facility] Respiratory Virus Panel by Bret Solis 01-04-2018 Adenovirus B/E - PCR Not Detected Normal [facility] Adenovirus C - PCR Not Detected Normal [facility] Comment on above: Result Comment: The specimen submitted for testing did not meet ARUPsubmission guidelines. Testing was performed on a specimenthat did not meet validated type requirements.Performance characteristics of this assay may be affected.Interpret results with caution. Please refer to the [facility] Test Directory for information on specimenacceptability:[email or web address].Test developed and characteristics determined by [facility]. See Compliance Statement B: Trover/CS.Performed by [facility],[address] [place] [id number] csm.Trover, Artur Agustin MD - Lab. Director Human Metapneumovirus - PCR Not Detected Normal [facility] Human Rhinovirus - PCR Not Detected Normal [facility] Influenza A - PCR Not Detected Normal [facility] Influenza A 2009 H1N1 - PCR Not Detected Normal [facility] Influenza A H1 - PCR Not Detected Normal [facility] Influenza A H3 - PCR Not Detected Normal [facility] Influenza B - PCR Not Detected Normal [facility] Parainfluenza Virus 1 - PCR Not Detected Normal [facility] Parainfluenza Virus 2 - PCR Not Detected Normal [facility] Parainfluenza Virus 3 - PCR Not Detected Normal [facility] Respiratory Syncytial Virus A - PCR Not Detected Normal [facility] Respiratory Syncytial Virus B - PCR Not Detected Normal [facility] RVP Source Bronch Wash RUL Normal [facility] CBC With Platelet and Differ entialon 01-02-2018 Basophils Auto #/vol (Bld) 0.1 10*3/uL Normal 0.0-0.2 [facility] Basophils/100 WBC Auto (Bld) 0.8 % Normal [facility] Eosinophils Auto #/vol (Bld) 0.1 10*3/uL Normal 0.0-0.7 [facility] Eosinophils/100 WBC Auto (Bld) 1.6 % Normal [facility] Erythrocyte distribution width Auto Ratio (RBC) 19.9 % Critically high 11.5-14.5 [facility] Hematocrit Auto Volume Fraction (Bld) 22.0 % Low 37.0-47.0 [facility] Hemoglobin mass conc (Bld) 7.3 g/dL Low 12.0-16.0 [facility] Lymphocytes Auto #/vol (Bld) 1.2 10*3/uL Normal 1.0-4.8 [facility] Lymphocytes/100 WBC Auto (Bld) 19.0 % Normal [facility] MCH Auto Entitic mass (RBC) 26.8 pg Low 27.0-31.3 [facility] MCHC Auto mass conc (RBC) 33.4 % Normal 33.0-37.0 [facility] MCV Auto Entitic volume (RBC) 80.4 fL Low 82.0-100.0 [facility] Monocytes Auto #/vol (Bld) 0.3 10*3/uL Normal 0.2-0.8 [facility] Monocytes/100 WBC Auto (Bld) 4.9 % Normal [facility] Neutrophils Auto #/vol (Bld) 4.8 10*3/uL Normal 1.4-6.5 [facility] Neutrophils/100 WBC Auto (Bld) 73.7 % Normal [facility] Platelets Auto #/vol (Bld) 248 10*3/uL Normal 130-400 [facility] RBC Auto #/vol (Bld) 2.74 10*6/uL Low 4.20-5.40 [facility] WBC Auto #/vol (Bld) 6.5 10*3/uL Normal 4.8-10.8 [facility] Rejection Notificationon Rejected Test FOB Normal [facility] Rejected Test FOB Normal [facility] AFB Culture with Stainon Preliminary SEE NOTE Normal [facility] Comment on above: Order Comment: Bronc h wash RULBronch Wash RUL Result Comment: Spec imen received and in progress.Positive culture results are called as soon as detected.Final report to follow in seven to eight weeksPerformed by [facility],[address] [facility] [place] [address] ofz.Trover, Artur Agustin MD - Lab. Director Preliminary SEE NOTE Normal [facility] Comment on above: Order Comment: CALL [facility] LC1W tel. [phone], called hgb to ramila oseguera rn on 1w by [facility] results called to and read back by ramila oseguera on 1w, 12/27/201706:44, by BONSA Result Comment: Spec imen received and in progress.Positive culture results are called as soon as detected.Final report to follow in seven to eight weeksPerformed by [facility],[address], [facility] [place] [address] hti.Trover, Artur Agustin MD - Lab. Director CBC With Platelet and Differ entialon 01-01-2018 Basophils Auto #/vol (Bld) 0.0 10*3/uL Normal 0.0-0.2 [facility] Comment on above: Order Comment: CALL Murodck 1W tel. [phone], called hgb to ramila oseguera rn on 1w by scbHematology results called to and read back by ramila oseguera on 1w, 12/27/201706:44, by BONSA Basophils/100 WBC Auto (Bld) 0.8 % Normal [facility] Comment on above: Order Comment: CALL [facility] 1W tel. [phone], called hgb to ramila oseguera rn on 1w by scbHematology results called to and read back by ramila oseguera on 1w, 12/27/201706:44, by BONSA Eosinophils Auto #/vol (Bld) 0.1 10*3/uL Normal 0.0-0.7 [facility] Comment on above: Order Comment: CALL [facility] LC1W tel. [phone], called hgb to ramila oseguera rn on 1w by scbHematology results called to and read back by ramila oseguera on 1w, 12/27/201706:44, by BONSA Eosinophils/100 WBC Auto (Bld) 1.8 % Normal [facility] Comment on above: Order Comment: CALL [facility] LC1W tel. [phone], called hgb to ramila oseguera rn on 1w by scbHematology results called to and read back by ramila oseguera on 1w, 12/27/201706:44, by BONSA Erythrocyte distribution width Auto Ratio (RBC) 18.6 % Critically high 11.5-14.5 [facility] Comment on above: Order Comment: CALL [facility] LC1W tel. [phone], called hgb to ramila oseguera rn on 1w by scbHematology results called to and read back by ramila june on 1w, :44, by BONSA Hematocrit Auto Volume Fraction (Bld) 20.1 % Critically low 37.0-47.0 [facility] Comment on above: Order Comment: CALL Murdock [facility] tel. [phone], called hgb to ramila june rn on 1w by scbHematology results called to and read back by ramila june on 1w, :44, by BONSA Hemoglobin mass conc (Bld) 6.7 g/dL Critically low 12.0-16.0 [facility] Comment on above: Order Comment: CALL Murdock [facility] tel. [phone], called hgb to ramila ana rosa rn on 1w by scbHematology results called to and read back by ramila june on 1w, :44, by BONSA Result Comment: veri fied by repeat Lymphocytes Auto #/vol (Bld) 0.9 10*3/uL Low 1.0-4.8 [facility] Comment on above: Order Comment: CALL Murdock [facility] tel. [phone], called hgb to ramila ana rosa rn on 1w by scbHematology results called to and read back by ramila oseguera on 1w, :44, by BONSA Lymphocytes/100 WBC Auto (Bld) 18.3 % Normal [facility] Comment on above: Order Comment: CALL Murdock [facility] tel. [phone], called hgb to ramila ana rosa rn on 1w by scbHematology results called to and read back by ramila june on 1w, :44, by BONSA MCH Auto Entitic mass (RBC) 26.5 pg Low 27.0-31.3 [facility] Comment on above: Order Comment: CALL Murdock [facility] tel. [phone], called hgb to ramila ana rosa rn on 1w by scbHematology results called to and read back by ramila june on 1w, :44, by BONSA MCHC Auto mass conc (RBC) 33.1 % Normal 33.0-37.0 [facility] Comment on above: Order Comment: CALL Murdock [facility] tel. [phone], called hgb to ramila oseguera rn on 1w by scbHematology results called to and read back by ramila june on 1w, :44, by BONSA MCV Auto Entitic volume (RBC) 80.0 fL Low 82.0-100.0 [facility] Comment on above: Order Comment: CALL Murdock [facility] tel. [phone], called hgb to ramila oseguera rn on 1w by scbHematology results called to and read back by ramila june on 1w, :44, by BONSA Monocytes Auto #/vol (Bld) 0.3 10*3/uL Normal 0.2-0.8 [facility] Comment on above: Order Comment: CALL Murdock [facility] tel. [phone], called hgb to ramila oseguera rn on 1w by scbHematology results called to and read back by ramila june on 1w, :44, by BONSA Monocytes/100 WBC Auto (Bld) 5.4 % Normal [facility] Comment on above: Order Comment: CALL Murdock [facility] tel. [phone], called hgb to ramila oseguera rn on 1w by scbHematology results called to and read back by ramila june on 1w, :44, by BONSA Neutrophils Auto #/vol (Bld) 3.8 10*3/uL Normal 1.4-6.5 [facility] Comment on above: Order Comment: CALL Murdock [facility] tel. [phone], called hgb to ramila oseguera rn on 1w by scbHematology results called to and read back by ramila june on 1w, :44, by BONSA Neutrophils/100 WBC Auto (Bld) 73.7 % Normal [facility] Comment on above: Order Comment: CALL Murdock [facility] tel. [phone], called hgb to ramila oseguera rn on 1w by scbHematology results called to and read back by ramila june on 1w, :44, by BONSA Platelets Auto #/vol (Bld) 174 10*3/uL Normal 130-400 [facility] Comment on above: Order Comment: CALL [facility] 1 tel. [phone], called hgb to ramila ana rosa rn on 1w by scbHematology results called to and read back by ramila june on 1w, 12/27/201706:44, by BONSA RBC Auto #/vol (Bld) 2.51 10*6/uL Low 4.20-5.40 [facility] Comment on above: Order Comment: CALL [facility] 1W tel. [phone], called hgb to ramila ana rosa rn on 1w by scbHematology results called to and read back by ramila june on 1w, 12/27/201706:44, by BONSA WBC Auto #/vol (Bld) 5.1 10*3/uL Normal 4.8-10.8 [facility] Comment on above: Order Comment: CALL Murdock [facility] tel. [phone], called hgb to ramila oseguera rn on 1w by scbHematology results called to and read back by ramila oseguera on 1w, 12/27/201706:44, by [employer]SA Bacterial susceptibility fox el by Elvia 12-31-2017 Bacterial susceptibility panel by Minimum inhibitory concentration (ISRA) ORDERED BY: LESLIE PENALOZA: Blood COLLECTED: 12/31/17 00:40ANTIBIOTICS AT RADHA.: RECEIVED : 12/31/17 01:26CALL [facility] LC4W tel. [phone],Blood culture results called to and read back by Henri Christine, 01/01/2018 13:30, by Heavenly Geiger 2 FINAL 01/03/18 07:41 1 out of 2 blood cultures POSITIVE for Serratia marcescens S. marces ANTIBIOTICS ISRA Interp A moxicillin/Clavulanate >=32 R Cefepime <=1 S Ceftriaxone <=1 S Ciprofloxacin <=0.25 S Gentamicin <=1 S Trimethoprim/Sulfamethoxaz ole <=20 S S=SUSCEPTIBLE I=INTERMEDIATE R=RESISTANT Normal [facility] CBC With Platelet and Differ entialon 12-31-2017 Basophils Auto #/vol (Bld) 0.1 10*3/uL Normal 0.0-0.2 [facility] Comment on above: Order Comment: CALL [facility] 1 tel. [phone], called hgb to ramila oseguera rn on 1w by scbHematology results called to and read back by ramila oseguera on w, 12/27/201706:44, by RAYSHAWN Basophils/100 WBC Auto (Bld) 0.7 % Normal [facility] Comment on above: Order Comment: CALL [facility] LC1W tel. [phone], called hgb to ramila oseguera rn on 1w by scbHematology results called to and read back by ramila oseguera on 1w, 12/27/201706:44, by RAYSHAWN Eosinophils Auto #/vol (Bld) 0.0 10*3/uL Normal 0.0-0.7 [facility] Comment on above: Order Comment: CALL Murdock [facility] tel. [phone], called hgb to ramila oseguera rn on 1w by scbHematology results called to and read back by ramila june on 1w, 12/27/201706:44, by RAYSHAWN Eosinophils/100 WBC Auto (Bld) 0.4 % Normal [facility] Comment on above: Order Comment: CALL Murdock [facility] tel. [phone], called hgb to ramila june rn on 1w by scbHematology results called to and read back by ramila june on 1w, :44, by RAYSHAWN Erythrocyte distribution width Auto Ratio (RBC) 19.0 % Critically high 11.5-14.5 [facility] Comment on above: Order Comment: CALL [address] tel. [phone], called hgb to ramila june rn on 1w by scbHematology results called to and read back by ramila june on 1w, :44, by RAYSHAWN Hematocrit Auto Volume Fraction (Bld) 19.7 % Critically low 37.0-47.0 [facility] Comment on above: Order Comment: CALL [address] tel. [phone], called hgb to ramila oseguera rn on 1w by scbHematology results called to and read back by ramila oseguera on 1w, :44, by RAYSHAWN Hemoglobin mass conc (Bld) 6.6 g/dL Critically low 12.0-16.0 [facility] Comment on above: Order Comment: CALL [facility] tel. [phone], called hgb to ramila oseguera rn on 1w by scbHematology results called to and read back by ramila june on 1w, :44, by BON Result Comment: veri fied by repeat Lymphocytes Auto #/vol (Bld) 0.8 10*3/uL Low 1.0-4.8 [facility] Comment on above: Order Comment: CALL Murdock [facility] tel. [phone], called hgb to ramila oseguera rn on 1w by scbHematology results called to and read back by ramila oseguera on 1w, :44, by BONSA Lymphocytes/100 WBC Auto (Bld) 9.0 % Normal [facility] Comment on above: Order Comment: CALL [address] tel. [phone], called hgb to ramila oseguera rn on 1w by scbHematology results called to and read back by ramila june on 1w, :44, by BONSA MCH Auto Entitic mass (RBC) 26.7 pg Low 27.0-31.3 [facility] Comment on above: Order Comment: CALL [address] tel. [phone], called hgb to ramila june rn on 1w by scbHematology results called to and read back by ramila june on 1w, :44, by BONSA MCHC Auto mass conc (RBC) 33.3 % Normal 33.0-37.0 [facility] Comment on above: Order Comment: CALL [address] tel. [phone], called hgb to ramila june rn on 1w by scbHematology results called to and read back by ramila june on 1w, :44, by BONSA MCV Auto Entitic volume (RBC) 80.1 fL Low 82.0-100.0 [facility] Comment on above: Order Comment: CALL [address] tel. [phone], called hgb to ramila oseguera rn on 1w by scbHematology results called to and read back by ramila june on 1w, :44, by BONSA Monocytes Auto #/vol (Bld) 0.5 10*3/uL Normal 0.2-0.8 [facility] Comment on above: Order Comment: CALL Mur[facility] tel. [phone], called hgb to ramila june rn on 1w by scbHematology results called to and read back by ramila june on 1w, :44, by BONSA Monocytes/100 WBC Auto (Bld) 5.4 % Normal [facility] Comment on above: Order Comment: CALL Mur[facility] tel. [phone], called hgb to ramila june rn on 1w by scbHematology results called to and read back by ramila june on 1w, :44, by BONSA Neutrophils Auto #/vol (Bld) 7.1 10*3/uL Critically high 1.4-6.5 [facility] Comment on above: Order Comment: CALL Murdock [facility] tel. [phone], called hgb to ramila oseguera rn on 1w by scbHematology results called to and read back by ramila june on 1w, :44, by BONSA Neutrophils/100 WBC Auto (Bld) 84.5 % Normal [facility] Comment on above: Order Comment: CALL Murdock [facility] tel. [phone], called hgb to ramila oseguera rn on 1w by scbHematology results called to and read back by ramila june on 1w, :44, by BONSA Platelets Auto #/vol (Bld) 195 10*3/uL Normal 130-400 [facility] Comment on above: Order Comment: CALL [address] tel. [phone], called hgb to ramila oseguera rn on 1w by scbHematology results called to and read back by ramila june on 1w, :44, by BONSA RBC Auto #/vol (Bld) 2.46 10*6/uL Low 4.20-5.40 [facility] Comment on above: Order Comment: CALL [address] tel. [phone], called hgb to ramila oseguera rn on 1w by scbHematology results called to and read back by ramila june on 1w, :44, by BONSA WBC Auto #/vol (Bld) 8.4 10*3/uL Normal 4.8-10.8 [facility] Comment on above: Order Comment: CALL [facility] tel. [phone], called hgb to ramila oseguera rn on 1w by scbHematology results called to and read back by ramila june on 1w, :44, by BONSA Culture, Blood 2on 12-31-201 8 Culture, Blood 2 OR DERED BY: LESLIE PENALOZA: Blood COLLECTED: 12/31/17 00:40ANTIBIOTICS AT RADHA.: RECEIVED : 12/31/17 01:26CALL [facility] LC4 tel. [phone],Blood culture results called to and read back by Henri Christine, 01/01/2018 13:30, by CORRINAECucolby, Blood 2 INTERIM 01/02/18 08:16 Gram stain aerobic bottle Gram negative rods 1 out of 2 blood cultures Further results to follow POSITIVE for Gram negative arminda ID and sensitivity to follow Normal [facility] IR FLUORO GUIDED CVA DEVICE [...] sheath was placed over the guidewire. A 4-Nigerien 44 cm single lumen PICC was advanced [...] WITHOUT IMMEDIATE COMPLICATIONS.Interpreted by:FRANCO Santamariaigned by:Gordon Hinton MD01/10/18Final result Normal [facility] IR PICC WO SQ PORT/PUMP [...] sheath was placed over the guidewire. A 4-Nigerien 44 cm single lumen PICC was advanced [...] COMPLICATIONS.Interpreted by:FRANCO Santamariaigned by:Gordon Hinton MD01/10/inal result [facility] IR ULTRASOUND GUIDANCE [facility] 12-31-2017 IR ULTRASOUND GUIDANCE VASCULAR ACCESS PERIPHERALLY [...] sheath was placed over the guidewire. A 4-Nigerien 44 cm single lumen PICC was advanced [...] by:FRANCO Santamariaigned by:Gordon Hinton MD01/10/18inal result Normal [facility] Basic Metabolic Panel Reflex Mgon 12-30-2017 Calcium mass conc 8.4 mg/dL Low 8.6-10.2 [facility] Chloride molar conc 107 mmol/L Normal 98-107 [facility] CO2 molar conc 24 mmol/L Normal 22-29 [facility] Creatinine mass conc 0.73 mg/dL Normal 0.50-0.90 [facility] GFR/1.73 sq M predicted among blacks MDRD vol rate/area (S/P/Bld) mL/min/{1.73_m2} Normal >60 [facility] Comment on above: Result Comment: >60 mL/min/1.73m2 EGFR, calc. for ages 18 and older using theMDRD formula (not corrected for weight), is valid for stablerenal function. GFR/1.73 sq M.predicted MDRD vol rate/area mL/min/{1.73_m2} Normal >60 [facility] Comment on above: Result Comment: >60 mL/min/1.73m2 EGFR, calc. for ages 18 and older using theMDRD formula (not corrected for weight), is valid for stablerenal function. Glucose mass conc 82 mg/dL Normal 74-109 [facility] Potassium reflex Mg 4.8 mEq/L Normal 3.5-5.1 [facility] Sodium molar conc 140 mmol/L Normal 132-144 [facility] Urea nitrogen mass conc 8 mg/dL Normal 6-20 [facility] Anion gap 3 molar conc 9 mmol/L Normal 7-13 [facility] Body Fluid Cell Counton 12-16 Atypical Lymphs 3 % Normal [facility] Eosinophils/100 WBC Auto (Bld) 1 % Normal [facility] Lymphocytes/100 WBC Auto (Bld) 8 % Normal [facility] Mesothelials 50 % Normal [facility] Monocytes/100 WBC Auto (Bld) 20 % Normal [facility] Neutrophils/100 WBC Auto (Bld) 18 % Normal [facility] CBC With Platelet and Differ entialon 12-30-2017 Basophils Auto #/vol (Bld) 0.0 10*3/uL Normal 0.0-0.2 [facility] Comment on above: Order Comment: CALL [facility]dock LC4W tel. [phone],h and h results called to and read back by es perdomo on 4w / scb,12/30/2017 09:51, by RAYSHAWN Basophils/100 WBC Auto (Bld) 1.0 % Normal [facility] Comment on above: Order Comment: CALL [facility] LC4W tel. [phone],h and h results called to and read back by es perdomo on 4w / scb,12/30/2017 09:51, by BONSA Eosinophils Auto #/vol (Bld) 0.1 10*3/uL Normal 0.0-0.7 [facility] Comment on above: Order Comment: CALL [facility] LC4W tel. [phone],h and h results called to and read back by es perdomo on 4w / scb,12/30/2017 09:51, by BONSA Eosinophils/100 WBC Auto (Bld) 1.8 % Normal [facility] Comment on above: Order Comment: CALL [facility] LC4W tel. [phone],h and h results called to and read back by es perdomo on 4w / scb,12/30/2017 09:51, by RAYSHAWN Erythrocyte distribution width Auto Ratio (RBC) 18.8 % Critically high 11.5-14.5 [facility] Comment on above: Order Comment: CALL [facility] LC4W tel. [phone],h and h results called to and read back by es perdomo on 4w / scb,12/30/2017 09:51, by BONSA Hematocrit Auto Volume Fraction (Bld) 20.8 % Critically low 37.0-47.0 [facility] Comment on above: Order Comment: CALL [facility] LC4W tel. [phone],h and h results called to and read back by es perdomo on 4w / scb,12/30/2017 09:51, by BONSA Hemoglobin mass conc (Bld) 7.0 g/dL Critically low 12.0-16.0 [facility] Comment on above: Order Comment: CALL [facility] LC4W tel. [phone],h and h results called to and read back by es perdomo on 4w / scb,12/30/2017 09:51, by BONSA Lymphocytes Auto #/vol (Bld) 1.0 10*3/uL Normal 1.0-4.8 [facility] Comment on above: Order Comment: CALL [facility] LC4W tel. [phone],h and h results called to and read back by es perdomo on 4w / scb,12/30/2017 09:51, by BONSA Lymphocytes/100 WBC Auto (Bld) 20.2 % Normal [facility] Comment on above: Order Comment: CALL [facility] LC4W tel. [phone],h and h results called to and read back by es perdomo on 4w / scb,12/30/2017 09:51, by BONSA MCH Auto Entitic mass (RBC) 26.8 pg Low 27.0-31.3 [facility] Comment on above: Order Comment: CALL [facility] LC4W tel. [phone],h and h results called to and read back by es perdomo on 4w / scb,12/30/2017 09:51, by BONSA MCHC Auto mass conc (RBC) 33.9 % Normal 33.0-37.0 [facility] Comment on above: Order Comment: CALL [facility] LC4W tel. [phone],h and h results called to and read back by es perdomo on 4w / scb,12/30/2017 09:51, by BONSA MCV Auto Entitic volume (RBC) 79.1 fL Low 82.0-100.0 [facility] Comment on above: Order Comment: CALL [facility] LC4W tel. [phone],h and h results called to and read back by es perdomo on 4w / scb,12/30/2017 09:51, by BONSA Monocytes Auto #/vol (Bld) 0.2 10*3/uL Normal 0.2-0.8 [facility] Comment on above: Order Comment: CALL [facility] LC4W tel. [phone],h and h results called to and read back by es perdomo on 4w / scb,12/30/2017 09:51, by BONSA Monocytes/100 WBC Auto (Bld) 4.8 % Normal [facility] Comment on above: Order Comment: CALL [facility] LC4W tel. [phone],h and h results called to and read back by es perdomo on 4w / scb,12/30/2017 09:51, by BONSA Neutrophils Auto #/vol (Bld) 3.7 10*3/uL Normal 1.4-6.5 [facility] Comment on above: Order Comment: CALL [facility] LC4W tel. [phone],h and h results called to and read back by es perdomo on 4w / scb,12/30/2017 09:51, by BONSA Neutrophils/100 WBC Auto (Bld) 72.2 % Normal [facility] Comment on above: Order Comment: CALL [facility] LC4W tel. [phone],h and h results called to and read back by es perdomo on 4w / scb,12/30/2017 09:51, by BONSA Platelets Auto #/vol (Bld) 231 10*3/uL Normal 130-400 [facility] Comment on above: Order Comment: CALL [facility] LC4W tel. [phone],h and h results called to and read back by es perdomo on 4w / scb,12/30/2017 09:51, by BONSA RBC Auto #/vol (Bld) 2.62 10*6/uL Low 4.20-5.40 [facility] Comment on above: Order Comment: CALL [facility] LC4W tel. [phone],h and h results called to and read back by es perdomo on 4w / scb,12/30/2017 09:51, by RAYSHAWN WBC Auto #/vol (Bld) 5.1 10*3/uL Normal 4.8-10.8 [facility] Comment on above: Order Comment: CALL [facility] LC4W tel. [phone],h and h results called to and read [...] by:FRANCO Mcmanusigned by:Huan Funes MD12/30/17inal result Normal [facility] [place] Miscellaneous test 1on 12-29-2017 Miscellaneous Test 1 SEE NOTE Normal [facility] Comment on above: Order Comment: Colle ction has been rescheduled by SAUDE at 12/26/2017 14:59. Reason:patient refusing until she gets pain meds Result Comment: Test name Result Flag Units RefIntvl HIV-1,2 Combo Antigen/Antibody Negative NegativeThe specimen was non-reactive for HIV-1 and HIV-2 antibodies, and [id number]. Based on this non-reactive screen result, further reflexivetestingwas not indicated and was, therefore, not performedINTERPRETIVE INFORMATION: HIV-1,2 Combo Ag/Ab EIA w/ReflexThis assay should not be used for blood donor screening, associatedre-entryprotocols, or for screening Human Cell, Tissues and Cellular andTissue-BasedProducts (HCT/P).Performed by [facility],[address] [place] [address],[place] [address] nsv.Trover, Artur Agustin MD - Lab. Director Protein mass conc 4123678 g/dL Normal [facility] Comment on above: Order Comment: Colle ction has been rescheduled by VIVIEN at 12/26/2017 14:59. Reason:patient refusing until she gets pain meds [facility] Bacterial susceptibility panel by Minimum inhibitory concentration (ISRA) ORDERED BY: YOLANDA POWELL: Bronchial Washing Right Upper Lobe COLLECTED: 12/29/17 15:09ANTIBIOTICS AT RADHA.: RECEIVED : 12/29/17 15:37 Supplemental ReportCALL Murdock LC4W tel. [phone],MRSA results called to and read back by [...] Vancomycin <=0.5 S S=SUSCEPTIBLE I=INTERMEDIATE R=RESISTANT Normal [facility] Bacterial susceptibility panel by Minimum inhibitory concentration (ISRA) ORDERED BY: YOLANDA POWELL: Bronchial Washing Body Fluid COLLECTED: 12/29/17 14:43ANTIBIOTICS AT RADHA.: RECEIVED : 12/29/17 15:42CALL [facility] LC4W tel. [phone],MRSAresults called to and read back by Nanci, 01/01/2018 12:22, by KEVGram Stain Direct FINAL 12/30/17 10:59 Few WBC's [...] ole <=20 S S=SUSCEPTIBLE I=INTERMEDIATE R=RESISTANT [facility] Body Fluid Cell Counton 11- Appearance Nom (U) Hazy [facility] Clot Check see below [facility] Comment on above: Result Comment: No C lots Seen Color Nom (U) Colorless [facility] Fluid Source Pleural Normal [facility] Total Nucleated Cells 341 /cumm [facility] Total Red Blood Cells 2888 /cumm [facility] Total Cells Counted for Diff 100 Normal [facility] CBC With Platelet No Aden chapman 12-29-2017 Erythrocyte distribution width Auto Ratio (RBC) 18.5 % Critically high 11.5-14.5 [facility] Comment on above: Order Comment: Terri gonzales has been rescheduled by SAUDE at 12/26/2017 14:59. Reason:patient refusing until she gets pain meds Hematocrit Auto Volume Fraction (Bld) 18.5 % Critically low 37.0-47.0 [facility] Comment on above: Order Comment: Terri gonzales has been rescheduled by SAUDE at 12/26/2017 14:59. Reason:patient refusing until she gets pain meds Hemoglobin mass conc (Bld) 6.2 g/dL Critically low 12.0-16.0 [facility] Comment on above: Order Comment: Terri gonzales has been rescheduled by SAUDE at 12/26/2017 14:59. Reason:patient refusing until she gets pain meds MCH Auto Entitic mass (RBC) 26.6 pg Low 27.0-31.3 [facility] Comment on above: Order Comment: Terri gonzales has been rescheduled by SAUDE at 12/26/2017 14:59. Reason:patient refusing until she gets pain meds MCHC Auto mass conc (RBC) 33.6 % Normal 33.0-37.0 [facility] Comment on above: Order Comment: Terri gonzales has been rescheduled by SAUDE at 12/26/2017 14:59. Reason:patient refusing until she gets pain meds MCV Auto Entitic volume (RBC) 79.0 fL Low 82.0-100.0 [facility] Comment on above: Order Comment: Terri gonzales has been rescheduled by SAUDE at 12/26/2017 14:59. Reason:patient refusing until she gets pain meds Platelets Auto #/vol (Bld) 173 10*3/uL Normal 130-400 [facility] Comment on above: Order Comment: Terri gonzales has been rescheduled by SAUDE at 12/26/2017 14:59. Reason:patient refusing until she gets pain meds RBC Auto #/vol (Bld) 2.34 10*6/uL Low 4.20-5.40 [facility] Comment on above: Order Comment: Terri ctklaudia has been rescheduled by SAUDE at 12/26/2017 14:59. Reason:patient refusing until she gets pain meds WBC Auto #/vol (Bld) 3.5 10*3/uL Low 4.8-10.8 [facility] Comment on above: Order Comment: Terri gonzales has been rescheduled by SAUDE at 12/26/2017 14:59. Reason:patient refusing until she gets pain meds CONSULTATIONon 12-29-[place] [address] CONSULTATIONPATIENT NAME: ALESHA KENNEY : 1985MED REC NO: [id number] ROOM:ACCOUNT NO: [id number] ADMIT DATE: 12/25/2017PROVIDER: Ayana Carbone, MDCONSULT DATE: 12/29/2017Consultation from Dr. Dominga Powell.REASON FOR [...] for this consult.AYANA CARBONE, MDD: 12/29/2017 18:06:42 GM/Omid_[id number]_IJob#: [id number] Doc#: [id number]: OksanaMD Dominga Segovia MD Normal [facility] Culture, Respiratoryon 12-29 Culture, Respiratory ORDERED BY: YOLANDA POWELL: Bronchial Washing Left Lower Lobe COLLECTED: 12/29/17 15:11ANTIBIOTICS AT RADHA.: RECEIVED : 12/29/17 15:41CALL [facility] LC4W tel. [phone],MRSA results called to and read back by Nanci, 01/01/2018 12:23, by ROGRUKHSANAGram Stain Direct FINAL 12/30/17 10:54 Moderate WBC's, No organisms seenCulture, Respiratory FINAL 01/01/18 12:24 Light growth Staph aureus MRSA CONTACT PRECAUTIONS INDICATED PBP2= POSITIVE Previous value was 01 Staph aureus MSSA, verified by KEV at 13:14 on 12/31/17 Normal [facility] Culture, Respiratory ORDERED BY: YOLANDA [...] Gram negative arminda ID to follow Normal [facility] Culture, Respiratory ORDERED BY: YOLANDA POWELL: Bronchial Washing Body Fluid COLLECTED: 12/29/17 14:43ANTIBIOTICS AT RADHA.: RECEIVED : 12/29/17 15:42Gram Stain Direct FINAL 12/30/17 10:59 Few WBC's Few epithelial cells Few Mixed Respiratory FloraCulture, Respiratory INTERIM 12/31/17 13:15 Light growth Gram negative arminda ID and sensitivity to follow Rare growth Serratia marcescens Refer to previous sensitivity Heavy growth Staph aureus MSSA Normal [facility] Cytology Medical Specimenon 12-29-2017 Cytology Medical Specimen Invalid Interpretation Code [facility] Comment on above: Result Comment: [facility] [address] [id number] PDRJB CYTOLOGY REPORTPatient Name: ALESHA KENNEY Accession No: [id number] Age Sex: 1985 32 Y/ F Location: [id number] No: [id number] Collected: 12/29/2017Med Rec No: [id number] Received: 12/30/2017Attend Phys: NEENA DUPONT Completed 01/03/2018Perform [...] ml fixed1 monolayer1 cell blockhx Not givenCPT: 55632 X2 71809 X2 Screened by: Irasema CAZARES M.D. 01/03/2018 [...] DURING BRONCHOSCOPY PROCEDURE.Interpreted by:FRANCO Mittaligned by:Keith Durham MD12/29/18Final result Normal [facility] HCV by Quant NAATon 12-30-19 18 HCV Qnt by NAAT IU/mL Not Detected Normal [facility] Comment on above: Order Comment: Terri gonzales has been rescheduled by SAUDE at 12/26/2017 14:59. Reason:patient refusing until she gets pain meds HCV Qnt by NAAT log IU/mL Not Detected Normal [facility] Comment on above: Order Comment: Terri gonzales has been rescheduled by SAUDE at 12/26/2017 14:59. Reason:patient refusing until she gets pain meds Prothrombin Timeon 8 INR Coag RelTime (PPP) 1.1 {INR} Normal [facility] Comment on above: Result Comment: [...] Coag time (PPP) 11.4 s Normal 9.6-12.3 [facility] Quantiferon-TB Gold Plus, 1- Tubeon 12-29-2017 Quantiferon Mitogen minus NIL 0.52 IU/mL Normal [facility] Comment on above: Order Comment: Terri gonzales has been rescheduled by SAUDE at 12/26/2017 14:59. Reason:patient refusing until she gets pain meds Quantiferon NIL 0.05 IU/mL Normal [facility] Comment on above: Order Comment: Terri gonzales has been rescheduled by SAUDE at 12/26/2017 14:59. Reason:patient refusing until she gets pain meds Result Comment: Perf ormed by [facility],[address] [place] [id number] swq.Trover, Artur Agustin MD - Lab. Director Quantiferon PlusTB1 minus NIL 0.00 IU/mL Normal 0.00-0.34 [facility] Comment on above: Order Comment: Terri gonzales has been rescheduled by SAUDE at 12/26/2017 14:59. Reason:patient refusing until she gets pain meds Quantiferon PlusTB2 minus NIL 0.00 IU/mL Normal 0.00-0.34 [facility] Comment on above: Order Comment: Terri gonzales has been rescheduled by SAUDE at 12/26/2017 14:59. Reason:patient refusing until she gets pain meds Quantiferon TB Gold Plus Negative Normal Negative [facility] Comment on above: Order Comment: [...] CD4+ lymphocyte reactivity, specifically stimulated by the AZ8ifoxlgrr. The TB2-NIL tube detects both CD4+ and CD8+ lymphocytereactivity,stimulated by TB2 antigens. An overall Negative result does notcompletelyrule out TB infection.A false-positive result in the absence of other clinical evidence of TBinfection is not uncommon. Refer to: Updated Guidelines for UsingInterferonGamma Release Assays to Detect Mycobacterium tuberculosis Infection ---[place], 2010(http://www.cdc.gov/mmwr/preview/mmwrhtml/dp3572d0.htm),for more information concerning test performance in low-prevalencepopulations and use in occupational screening. CBC With Platelet No Differe ntialon 12-28-2017 Erythrocyte distribution width Auto Ratio (RBC) 18.9 % Critically high 11.5-14.5 [facility] Comment on above: Order Comment: Terri gonzales has been rescheduled by SAUDE at 12/26/2017 14:59. Reason:patient refusing until she gets pain meds Hematocrit Auto Volume Fraction (Bld) 21.0 % Critically low 37.0-47.0 [facility] Comment on above: Order Comment: Terri gonzales has been rescheduled by SAUDE at 12/26/2017 14:59. Reason:patient refusing until she gets pain meds Hemoglobin mass conc (Bld) 6.8 g/dL Critically low 12.0-16.0 [facility] Comment on above: Order Comment: Terri gonzales has been rescheduled by SAUDE at 12/26/2017 14:59. Reason:patient refusing until she gets pain meds Result Comment: call ed h and h to lavinia chacon on 1w MCH Auto Entitic mass (RBC) 26.0 pg Low 27.0-31.3 [facility] Comment on above: Order Comment: Terri gonzales has been rescheduled by SAUDE at 12/26/2017 14:59. Reason:patient refusing until she gets pain meds MCHC Auto mass conc (RBC) 32.6 % Low 33.0-37.0 [facility] Comment on above: Order Comment: Terri gonzales has been rescheduled by SAUDE at 12/26/2017 14:59. Reason:patient refusing until she gets pain meds MCV Auto Entitic volume (RBC) 79.9 fL Low 82.0-100.0 [facility] Comment on above: Order Comment: Terri gonzales has been rescheduled by SAUDE at 12/26/2017 14:59. Reason:patient refusing until she gets pain meds Platelets Auto #/vol (Bld) 147 10*3/uL Normal 130-400 [facility] Comment on above: Order Comment: Terri gonzales has been rescheduled by SAUDE at 12/26/2017 14:59. Reason:patient refusing until she gets pain meds RBC Auto #/vol (Bld) 2.63 10*6/uL Low 4.20-5.40 [facility] Comment on above: Order Comment: Terri gonzales has been rescheduled by SAUDE at 12/26/2017 14:59. Reason:patient refusing until she gets pain meds WBC Auto #/vol (Bld) 4.2 10*3/uL Low 4.8-10.8 [facility] Comment on above: Order Comment: Terri gonzales has been rescheduled by SAUDE at 12/26/2017 14:59. Reason:patient refusing until she gets pain meds Hepatitis B Core Abs, Totalo n 12-28-2017 Hepatitis B Core Abs, Total Positive Abnormal Negative [facility] Comment on above: Order Comment: [...] Tissues and Cellular andTissue-Based Products (HCT/P).Performed by [facility],[address] [facility] CampusVaultizeL[place] [address] cqx.Trover, Artur Agustin MD - Lab. Director Transferrinon 12-28-2017 Transferrin mass conc 135 mg/dL Low 200-400 [facility] Comment on above: Order Comment: Terri gonzales has been rescheduled by SATORI at 12/26/2017 14:59. Reason:patient refusing until she gets pain meds Result Comment: Perf ormed by [facility],[address] [facility] CampusCBC [employer] [facility], [place] [address] whr.Trover, Artur Agustin MD - Lab. Director XR [...] Montoya, DOSigned by:Chandrakant Montoya, DO12/28/18Final result Normal [facility] CBC With Platelet and Differ entialon 12-27-2017 Anisocytosis Auto Ql (Bld) 2+ Normal [facility] Comment on above: Order Comment: CALL [facility]dock 1W tel. [phone], called hgb to ramila oseguera rn on 1w by scbHematology results called to and read back by ramila june on 1w, 12/27/201706:44, by BONSA Hypochromia 1+ Normal [facility] Comment on above: Order Comment: CALL [facility] 1W tel. [phone], called hgb to ramila oseguera rn on 1w by scbHematology results called to and read back by ramila june on 1w, 12/27/201706:44, by BONSA Lymphocytes Auto #/vol (Bld) 0.8 10*3/uL Low 1.0-4.8 [facility] Comment on above: Order Comment: CALL [facility] 1W tel. [phone], called hgb to ramila oseguera rn on 1w by scbHematology results called to and read back by ramila oseguera on 1w, 12/27/201706:44, by BONSA Lymphocytes/100 WBC Auto (Bld) 22.0 % Normal [facility] Comment on above: Order Comment: CALL [facility] 1W tel. [phone], called hgb to ramila oseguera rn on 1w by scbHematology results called to and read back by ramila june on 1w, 12/27/201706:44, by BONSA Microcytic 2+ Normal [facility] Comment on above: Order Comment: CALL [facility] 1W tel. [phone], called hgb to ramila oseguera rn on 1w by scbHematology results called to and read back by ramila june on 1w, 12/27/201706:44, by BONSA Monocytes Auto #/vol (Bld) 0.1 10*3/uL Low 0.2-0.8 [facility] Comment on above: Order Comment: CALL [facility] 1 tel. [phone], called hgb to ramila oseguera rn on 1w by scbHematology results called to and read back by ramlia june on 1w, :44, by BONSA Monocytes/100 WBC Auto (Bld) 3.8 % Normal [facility] Comment on above: Order Comment: CALL Murdock [facility] tel. [phone], called hgb to ramila oseguera rn on 1w by scbHematology results called to and read back by ramila june on 1w, :44, by BONSA Neutrophils Auto #/vol (Bld) 2.7 10*3/uL Normal 1.4-6.5 [facility] Comment on above: Order Comment: CALL Murdock [facility] tel. [phone], called hgb to ramila oseguera rn on 1w by scbHematology results called to and read back by ramila june on 1w, :44, by BONSA Neutrophils/100 WBC Auto (Bld) 74.0 % Normal [facility] Comment on above: Order Comment: CALL Murdock [facility] tel. [phone], called hgb to ramila oseguera rn on 1w by scbHematology results called to and read back by ramila june on 1w, :44, by RAYSHAWN Platelet Slide Review Decreased Normal [facility] Comment on above: Order Comment: CALL Murdock [facility] tel. [phone], called hgb to ramila oseguera rn on 1w by scbHematology results called to and read back by ramila june on 1w, :44, by RAYSHAWN Poikilocytosis 1+ Normal [facility] Comment on above: Order Comment: [facility]. [phone], called hgb to ramila oseguera rn on 1w by scbHematology results called to and read back by ramila june on 1w, :44, by BONSA Basophils Auto #/vol (Bld) 0.0 10*3/uL Normal 0.0-0.2 [facility] Comment on above: Order Comment: CALL Murdock LC1W tel. [phone], called hgb to ramila june rn on 1w by scbHematology results called to and read back by ramila june on 1w, :44, by BONSA Basophils/100 WBC Auto (Bld) 1.0 % Normal [facility] Comment on above: Order Comment: CALL [address] tel. [phone], called hgb to ramila june rn on 1w by scbHematology results called to and read back by ramila june on 1w, :44, by BONSA Eosinophils Auto #/vol (Bld) 0.0 10*3/uL Normal 0.0-0.7 [facility] Comment on above: Order Comment: CALL [address] tel. [phone], called hgb to ramila june rn on 1w by scbHematology results called to and read back by ramila june on 1w, :44, by BONSA Eosinophils/100 WBC Auto (Bld) 1.1 % Normal [facility] Comment on above: Order Comment: CALL [address] tel. [phone], called hgb to ramila june rn on 1w by scbHematology results called to and read back by ramila june on 1w, :44, by BON Erythrocyte distribution width Auto Ratio (RBC) 18.8 % Critically high 11.5-14.5 [facility] Comment on above: Order Comment: CALL [address] tel. [phone], called hgb to ramila june rn on 1w by scbHematology results called to and read back by ramila june on 1w, :44, by BON Hematocrit Auto Volume Fraction (Bld) 21.1 % Low 37.0-47.0 [facility] Comment on above: Order Comment: CALL Murdock [facility] tel. [phone], called hgb to ramila june rn on 1w by scbHematology results called to and read back by ramila june on 1w, :44, by RAYSHAWN Hemoglobin mass conc (Bld) 6.9 g/dL Critically low 12.0-16.0 [facility] Comment on above: Order Comment: CALL [facility] 1W tel. [phone], called hgb to ramila oseguera rn on 1w by scbHematology results called to and read back by ramila june on 1w, :44, by BONSA Result Comment: call ed hgb to ramila june on 1w / scb MCH Auto Entitic mass (RBC) 26.5 pg Low 27.0-31.3 [facility] Comment on above: Order Comment: CALL [facility] 1W tel. [phone], called hgb to ramila june rn on 1w by scbHematology results called to and read back by ramila june on 1w, :44, by BONSA MCHC Auto mass conc (RBC) 32.8 % Low 33.0-37.0 [facility] Comment on above: Order Comment: CALL [facility] 1W tel. [phone], called hgb to ramila ana rosa rn on 1w by scbHematology results called to and read back by ramila june on 1w, :44, by BONSA MCV Auto Entitic volume (RBC) 80.9 fL Low 82.0-100.0 [facility] Comment on above: Order Comment: CALL [facility] 1W tel. [phone], called hgb to ramila oseguera rn on 1w by scbHematology results called to and read back by ramila oseguera on 1w, :44, by BONSA Platelets Auto #/vol (Bld) 122 10*3/uL Low 130-400 [facility] Comment on above: Order Comment: CALL [facility] LC1W tel. [phone], called hgb to ramila ana rosa rn on 1w by scbHematology results called to and read back by ramila june on 1w, :44, by BONSA RBC Auto #/vol (Bld) 2.61 10*6/uL Low 4.20-5.40 [facility] Comment on above: Order Comment: CALL [facility]dock LC1W tel. [phone], called hgb to ramila ana rosa rn on 1w by scbHematology results called to and read back by ramila oseguera on 1w, 12/27/201706:44, by RAYSHAWN WBC Auto #/vol (Bld) 3.6 10*3/uL Low 4.8-10.8 [facility] Comment on above: Order Comment: CALL [facility] LC1W tel. [phone], called hgb to ramila oseguera rn on 1w by scbHematology results called to and read back by ramila oseguera on 1w, 12/27/201706:44, by RAYSHAWN Comprehensive Metabolic Pane l reflex Mgon 12-27-2017 Albumin mass conc 2.4 g/dL Low 3.9-4.9 [facility] ALP enzyme act/vol 40 U/L Normal 40-130 [facility] ALT enzyme act/vol U/L Normal 0-33 [facility] Anion gap 3 molar conc 11 mmol/L Normal 7-13 [facility] AST enzyme act/vol 6 U/L Normal 0-35 [facility] Bilirubin mass conc mg/dL Normal 0.0-1.2 [facility] Calcium mass conc 7.7 mg/dL Low 8.6-10.2 [facility] Chloride molar conc 110 mmol/L Critically high 98-107 [facility] CO2 molar conc 20 mmol/L Low 22-29 [facility] Creatinine mass conc 0.64 mg/dL Normal 0.50-0.90 [facility] GFR/1.73 sq M predicted among blacks MDRD vol rate/area (S/P/Bld) mL/min/{1.73_m2} Normal >60 [facility] Comment on above: Result Comment: >60 mL/min/1.73m2 EGFR, calc. for ages 18 and older using theMDRD formula (not corrected for weight), is valid for stablerenal function. GFR/1.73 sq M.predicted MDRD vol rate/area mL/min/{1.73_m2} Normal >60 [facility] Comment on above: Result Comment: >60 mL/min/1.73m2 EGFR, calc. for ages 18 and older using theMDRD formula (not corrected for weight), is valid for stablerenal function. Globulin Calculated mass conc (S) 3.9 g/dL Critically high 2.3-3.5 [facility] Glucose mass conc 115 mg/dL Critically high 74-109 [facility] Potassium reflex Mg 3.8 mEq/L Normal 3.5-5.1 [facility] Protein mass conc 6.3 g/dL Low 6.4-8.1 [facility] Sodium molar conc 141 mmol/L Normal 132-144 [facility] Urea nitrogen mass conc 10 mg/dL Normal 6-20 [facility] Ferritinon 12-27-2017 Ferritin [Mass/volume] in Serum or Plasma 152.3 ng/mL Critically high 13.0-150.0 [facility] Iron Profileon 12-27-2017 % Saturation 8 % Low 11-46 [facility] Iron Binding Capacity 132 ug/dL Low 178-450 [facility] Iron mass conc 11 ug/dL Low 37-145 [facility] RBC LRon 12-27-2017 RBC Auto #/vol (Bld) PATIENT: ISABEL Jackson LOC: [id number]# : [id number] : 1985 SEX: FORDERED BY: KIAH CHAUDHARY ORDERED : 12/27/2017 07:06 COLLECTED: 12/27/2017 07:20ORDER : [id number] RECEIVED : 12/27/2017 07:27 -----TEST NAME RESULT UNITS RANGES ABN FL STRBC LR [id number] RBC LR W0 F = Normal [facility] Retic Automatedon 12-27-2017 Hematocrit Auto Volume Fraction (Bld) 21.1 % Low 37.0-47.0 [facility] Retic Abs 0.066 m/cumm Normal 0.022-0.11 [facility] Reticulocyte Count Automated 2.5 % Critically high 0.6-2.2 [facility] Type and Screen Capture 3 sc rn cellon 12-27-2017 Type and Screen Capture 3 scrn cell PATIENT: ISABEL Jackson LOC: [id number]# : [id number] : 1985 SEX: FORDERED BY: KIAH CHAUDHARY ORDERED : 12/27/2017 07:06 COLLECTED: 12/27/2017 07:20ORDER : [id number] RECEIVED : 12/27/2017 07:27 -----TEST NAME RESULT UNITS RANGES ABN FL STABORH Capture A POS FAntibody 3 Cell Scrn alannah MORENO F @12/27/17 10:58 by BEBETO: ANTIBODY SCREEN PERFORMED ON BACKUP CAPTURE. ------- Normal [facility] Bacterial susceptibility fox el by [...] ole <=20 S S=SUSCEPTIBLE I=INTERMEDIATE R=RESISTANT Normal [facility] CT CHEST W CONTRASTon 2017 [...] tissue density, adenopathy.There is trace pericardial effusion.The ysjso-ks-eamt the gallbladder surgically absent.IMPRESSION: FINDINGS DESCRIBED ABOVE. [...] by:FRANCO Santamariaigned by:Gordon Hinton MD12/26/17inal result Normal [facility] Culture, Blood 2on 8 Culture, Blood 2 OR DERED BY: GALLITO POLANCO: Blood COLLECTED: 12/26/17 15:49ANTIBIOTICS AT RADHA.: RECEIVED : 12/26/17 15:56Culture, Blood 2 FINAL 12/31/17 16:15 No growth after 5 days of incubation. Normal [facility] Culture, Respiratoryon 12-26 Culture, Respiratory ORDERED BY: GALLITO POLANCO: Sputum Expectorated COLLECTED: 12/26/17 14:45ANTIBIOTICS AT RADHA.: RECEIVED : 12/29/17 12:46Gram Stain Direct FINAL 12/29/17 16:19 Moderate WBC's Few epithelial cells Few Yeast with pseudohyphaeCulture, Respiratory INTERIM 12/30/17 11:53 Light growth Gram negative arminda ID and sensitivity to follow Moderate growth Yeast No further workup Normal [facility] Hepatitis C Antibodyon 12-26 Hepatitis C Antibody Interp REACTIVE Abnormal [facility] Comment on above: Order Comment: Terri gonzales has been rescheduled by VIVIEN at 12/26/2017 14:59. Reason:patient refusing until she gets pain meds Influenza A and Bon 12-27-19 18 Influenza A Antigen Negative Normal Negative [facility] Influenza B Antigen Negative Normal Negative [facility] Bacterial susceptibility fox el by [facility] 12-25-2017 Bacterial susceptibility panel by Minimum inhibitory concentration (ISRA) ORDERED BY: FLOYD SNIDER: Blood Blood COLLECTED: 12/25/17 21:04ANTIBIOTICS AT RADHA.: RECEIVED : 12/25/17 21:04CALL [facility] LOER tel. [phone],Blood Culture results called to and read back by Beena MASON, 12/26/2017 19:32, by Jodie, Blood FINAL 12/28/17 07:32 1 out of 2 blood cultures POSITIVE for Serratia marcescens S. marces ANTIBIOTICS ISRA Interp A moxicillin/Clavulanate >=32 R Cefepime <=1 S Ceftriaxone <=1 S Ciprofloxacin <=0.25 S Gentamicin <=1 S Trimethoprim/Sulfamethoxaz ole <=20 S S=SUSCEPTIBLE I=INTERMEDIATE R=RESISTANT Normal [facility] CBC With Platelet and Differ entialon 12-25-2017 Basophils Auto #/vol (Bld) 0.0 10*3/uL Normal 0.0-0.2 [facility] Basophils/100 WBC Auto (Bld) 0.5 % Normal [facility] Eosinophils Auto #/vol (Bld) 0.0 10*3/uL Normal 0.0-0.7 [facility] Eosinophils/100 WBC Auto (Bld) 0.2 % Normal [facility] Erythrocyte distribution width Auto Ratio (RBC) 18.9 % Critically high 11.5-14.5 [facility] Hematocrit Auto Volume Fraction (Bld) 23.6 % Low 37.0-47.0 [facility] Hemoglobin mass conc (Bld) 8.0 g/dL Low 12.0-16.0 [facility] Hypochromia PRESENT Normal [facility] Lymphocytes Auto #/vol (Bld) 1.3 10*3/uL Normal 1.0-4.8 [facility] Lymphocytes/100 WBC Auto (Bld) 16.6 % Normal [facility] MCH Auto Entitic mass (RBC) 26.5 pg Low 27.0-31.3 [facility] MCHC Auto mass conc (RBC) 33.9 % Normal 33.0-37.0 [facility] MCV Auto Entitic volume (RBC) 78.1 fL Low 82.0-100.0 [facility] Monocytes Auto #/vol (Bld) 0.5 10*3/uL Normal 0.2-0.8 [facility] Monocytes/100 WBC Auto (Bld) 6.3 % Normal [facility] Neutrophils Auto #/vol (Bld) 6.2 10*3/uL Normal 1.4-6.5 [facility] Neutrophils/100 WBC Auto (Bld) 76.4 % Normal [facility] Platelets Auto #/vol (Bld) 178 10*3/uL Normal 130-400 [facility] RBC Auto #/vol (Bld) 3.02 10*6/uL Low 4.20-5.40 [facility] WBC Auto #/vol (Bld) 8.1 10*3/uL Normal 4.8-10.8 [facility] Comprehensive Metabolic Pane thanh 12-25-2017 Albumin mass conc 3.2 g/dL Low 3.9-4.9 [facility] ALP enzyme act/vol 39 U/L Low 40-130 [facility] ALT enzyme act/vol U/L Normal 0-33 [facility] Anion gap 3 molar conc 14 mmol/L Critically high 7-13 [facility] AST enzyme act/vol 10 U/L Normal 0-35 [facility] Bilirubin mass conc 0.6 mg/dL Normal 0.0-1.2 [facility] Calcium mass conc 8.7 mg/dL Normal 8.6-10.2 [facility] Chloride molar conc 94 mmol/L Low 98-107 [facility] CO2 molar conc 24 mmol/L Normal 22-29 [facility] Creatinine mass conc 0.68 mg/dL Normal 0.50-0.90 [facility] GFR/1.73 sq M predicted among blacks MDRD vol rate/area (S/P/Bld) mL/min/{1.73_m2} Normal >60 [facility] Comment on above: Result Comment: >60 mL/min/1.73m2 EGFR, calc. for ages 18 and older using theMDRD formula (not corrected for weight), is valid for stablerenal function. GFR/1.73 sq M.predicted MDRD vol rate/area mL/min/{1.73_m2} Normal >60 [facility] Comment on above: Result Comment: >60 mL/min/1.73m2 EGFR, calc. for ages 18 and older using theMDRD formula (not corrected for weight), is valid for stablerenal function. Globulin Calculated mass conc (S) 4.4 g/dL Critically high 2.3-3.5 [facility] Glucose mass conc 120 mg/dL Critically high 74-109 [facility] Potassium molar conc 4.2 mmol/L Normal 3.5-5.1 [facility] Protein mass conc 7.6 g/dL Normal 6.4-8.1 [facility] Sodium molar conc 132 mmol/L Normal 132-144 [facility] Urea nitrogen mass conc 7 mg/dL Normal 6-20 [facility] Creatine Kinaseon 12-25-2017 CK enzyme act/vol 19 U/L Normal 0-170 [facility] Culture, Blood 2on 8 Culture, Blood 2 OR DERED BY: FLOYD SNIDER: Blood COLLECTED: 12/25/17 21:04ANTIBIOTICS AT RADHA.: RECEIVED : 12/25/17 21:04Culture, Blood 2 FINAL 12/30/17 22:15 No growth after 5 days of incubation. Normal [facility] Lactic Acidon 12-25-2017 Lactate molar conc 2.1 mmol/L Normal 0.5-2.2 [facility] Prothrombin Timeon 8 INR Coag RelTime (PPP) 1.2 {INR} Normal [facility] Comment on above: Result Comment: Dimitrios [...] Coag time (PPP) 11.8 s Normal 9.6-12.3 [facility] Troponinon 12-25-2017 Troponin I.cardiac mass conc ng/mL Normal 0.000-0.01 [facility] Comment on above: Result Comment: Meth odology by Troponin T. UR Drug Screen Rapidon 12-25 Drug Screen Comment see below Normal [facility] Comment on above: Result Comment: This method is a screening test to detect only these drugclasses as part of a medical workup. Confirmatory testingby another method should be ordered if clinically indicated. UR Amphetamines Rapid Screen Negative Normal Negative < [facility] Comment on above: Result Comment: Effe ctive: 08/30/17Methodology and/or Reference Range-Cutoff has changed. UR Barbiturates Rapid Screen Negative Normal Negative < [facility] Comment on above: Result Comment: Effe ctive: 08/30/17Methodology and/or Reference Range-Cutoff has changed. UR Benzo Rapid Screen Negative Normal Negative < [facility] Comment on above: Result Comment: Effe ctive: 08/30/17Methodology and/or Reference Range-Cutoff has changed. UR Cannabinoids Rapid Screen Negative Normal Negative < [facility] UR Cocaine Rapid Screen Negative Normal Negative < [facility] Comment on above: Result Comment: Effe ctive: 08/30/17Methodology and/or Reference Range-Cutoff has changed. UR Opiates Rapid Screen Negative Normal Negative < [facility] Comment on above: Result Comment: Effe ctive: 08/30/17Methodology and/or Reference Range-Cutoff has changed. UR PCP Rapid Screen Negative Normal Negative < [facility] UR Tricyclics Rapid Screen - Rapid Negative Normal Negative < [facility] Comment on above: Result Comment: Effe ctive: 08/30/17Methodology and/or Reference Range-Cutoff has changed. UR HCG Qualitativeon 018 HCG.beta subunit ( test) Ql (U) Negative Normal Detects [facility] Urinalysis, reflex to cultur eugenia 12-25-2017 Bilirubin Ql (U) Negative Normal Negative [facility] Clarity Nom (U) Clear Normal Clear [facility] Color Nom (U) Yellow Normal Straw/Arroyo [facility] Glucose Ql (U) Negative Normal Negative [facility] Hemoglobin Test strip Ql (U) Negative Normal Negative [facility] Ketones Ql (U) Negative Normal Negative [facility] Leukocyte esterase Test strip Ql (U) Negative Normal Negative [facility] Nitrite Test strip Ql (U) Negative Normal Negative [facility] pH Test strip (U) 7.0 [pH] Normal 5.0-9.0 [facility] Protein Test strip Ql (U) Negative Normal Negative [facility] Specific gravity Relative Density (U) 1.015 Normal 1.005-1.03 [facility] Urine Reflexed to Culture Not Indicated Normal [facility] Urobilinogen Test strip Qn (U) 0.2 {Katy'U}/dL Normal < 2.0 [facility] Vital Signs Date Time Vital Sign Value Performing Clinician Facility 03-13-2024 14:45-0500 Body height 172.7 cm Sonya Villa CARE CENTER MANAGER Work Phone: [facility] 03-13-2024 14:45-0500 Body mass index (BMI) [Ratio] 47.1 kg/m2 Sonya Villa CARE CENTER MANAGER Work Phone: [facility] 03-13-2024 14:45-0500 Body temperature 97.39 [degF] Sonya Villa CARE CENTER MANAGER Work Phone: [facility] 03-13-2024 14:45-0500 Body weight 140.52 kg Sonya Villa CARE CENTER MANAGER Work Phone: [facility] 03-13-2024 14:45-0500 Diastolic blood pressure 90 mm[Hg] Sonya Villa CARE CENTER MANAGER Work Phone: [facility] 03-13-2024 14:45-0500 Heart rate 89 /min Sonya Villa CARE CENTER MANAGER Work Phone: [facility] 03-13-2024 14:45-0500 Respiratory rate 16 /min Sonya Villa CARE CENTER MANAGER Work Phone: [facility] 03-13-2024 14:45-0500 SaO2% (BldA) [Mass fraction] 98 % Sonya Villa CARE CENTER MANAGER Work Phone: [facility] 03-13-2024 14:45-0500 Systolic blood pressure 140 mm[Hg] Sonya Villa CARE CENTER MANAGER Work Phone: [facility] 03-09-2024 14:38-0500 Body height 172.7 cm Sonya Villa CARE CENTER MANAGER Work Phone: [facility] 03-09-2024 14:38-0500 Body mass index (BMI) [Ratio] 46.98 kg/m2 Sonya Villa CARE CENTER MANAGER Work Phone: [facility] 03-09-2024 14:38-0500 Body temperature 97.81 [degF] Sonya Villa CARE CENTER MANAGER Work Phone: [facility] 03-09-2024 14:38-0500 Body weight 140.16 kg Sonya Villa CARE CENTER MANAGER Work Phone: [facility] 03-09-2024 14:38-0500 Diastolic blood pressure 88 mm[Hg] Sonya Villa CARE CENTER MANAGER Work Phone: [facility] 03-09-2024 14:38-0500 Heart rate 91 /min Sonya Villa CARE CENTER MANAGER Work Phone: [facility] 03-09-2024 14:38-0500 Respiratory rate 16 /min Sonya Villa CARE CENTER MANAGER Work Phone: [facility] 03-09-2024 14:38-0500 SaO2% (BldA) [Mass fraction] 96 % Sonya Villa CARE CENTER MANAGER Work Phone: [facility] 03-09-2024 14:38-0500 Systolic blood pressure 158 mm[Hg] Sonya Villa CARE CENTER MANAGER Work Phone: [facility] 11-23-2023 15:22-0400 Body mass index (BMI) [Ratio] 48.24 kg/m2 Sonya Villa CARE CENTER MANAGER Work Phone: [facility] 11-23-2023 15:22-0400 Body temperature 97.3 [degF] Sonya Villa CARE CENTER MANAGER Work Phone: [facility] 11-23-2023 15:22-0400 Body weight 139.71 kg Sonya Villa CARE CENTER MANAGER Work Phone: [facility] 11-23-2023 15:22-0400 Diastolic blood pressure 102 mm[Hg] Sonya Villa CARE CENTER MANAGER Work Phone: [facility] 11-23-2023 15:22-0400 Heart rate 82 /min Sonya Villa CARE CENTER MANAGER Work Phone: [facility] 11-23-2023 15:22-0400 SaO2% (BldA) [Mass fraction] 97 % Sonya Villa CARE CENTER MANAGER Work Phone: [facility] 11-23-2023 15:22-0400 Systolic blood pressure 146 mm[Hg] Sonya Villa CARE CENTER MANAGER Work Phone: [facility] 10-11-2023 15:42-0400 Body height 170.2 cm Sonya Villa CARE CENTER MANAGER Work Phone: [facility] 10-11-2023 15:42-0400 Body mass index (BMI) [Ratio] 49.02 kg/m2 Sonya Villa CARE CENTER MANAGER Work Phone: [facility] 10-11-2023 15:42-0400 Body temperature 97.3 [degF] Sonya Villa CARE CENTER MANAGER Work Phone: [facility] 10-11-2023 15:42-0400 Body weight 141.98 kg Sonya Villa CARE CENTER MANAGER Work Phone: [facility] 10-11-2023 15:42-0400 Diastolic blood pressure 90 mm[Hg] Sonya Villa CARE CENTER MANAGER Work Phone: [facility] 10-11-2023 15:42-0400 Heart rate 89 /min Sonya Villa CARE CENTER MANAGER Work Phone: [facility] Comment on above: 100% O2 10-11-2023 15:42-0400 Systolic blood pressure 136 mm[Hg] Sonya Villa CARE CENTER MANAGER Work Phone: [facility] 12-25-2017 19:30-0500 Body mass index (BMI) [Ratio] IVAN FERNANDEZ [facility] Encounters Encounter Date Encounter Type Care Provider Facility Start: 03-13-2024 End: 03-13-2024 ambulatory SONYA VILLA Not Available Start: 03-13-2024 End: 03-13-2024 Periodic preventive med est patient 18-39 yrs Sonya Robertszpatrick CARE CENTER MANAGER Work Phone: [facility] Comment on above: Wellness examination (Primary Dx); Fatigue, unspecified type; Anemia, unspecified type; Acute paronychia of right thumb Start: 03-13-2024 End: 03-13-2024 Patient encounter status Sonya Villa CARE CENTER MANAGER Work Phone: [facility] Start: 03-10-2024 End: 03-10-2024 Clinisync Result Encounter Sonya Villa CARE CENTER MANAGER Work Phone: [facility] External Department Unsolicited Start: 03-10-2024 End: 03-10-2024 Clinisync Result Encounter Sonya Villa CARE CENTER MANAGER Work Phone: [facility] External Department Unsolicited Start: 03-09-2024 End: 03-09-2024 ambulatory SONYA ROBERTSZPATRICK Not Available Start: 03-09-2024 End: 03-09-2024 Office outpatient visit 10 minutes Sonya Allen CARE CENTER MANAGER Work Phone: [facility] Comment on above: Acute paronychia of right thumb (Primary Dx); Primary hypertension (CMS/HCC) Start: 03-09-2024 End: 03-09-2024 Bamboo flowsheet Sonya Villa CARE CENTER MANAGER Work Phone: [facility] Start: 03-09-2024 End: 03-09-2024 Bamboo flowsheet Sonya Villa CARE CENTER MANAGER Work Phone: [facility] Start: 12-09-2023 End: 12-09-2023 Orders Only Sonya Manningpatrick CARE CENTER MANAGER Work Phone: [facility] Comment on above: Acute non-recurrent frontal sinusitis (Primary Dx) Start: 11-23-2023 End: 11-23-2023 Periodic preventive med est patient 18-39 yrs Sonya Villa CARE CENTER MANAGER Work Phone: [facility] Comment on above: Blood pressure eleva yue without history of HTN (Primary Dx); Morbid obesity (CMS/HCC); Encounter for wellness examination in adult; Tinea pedis of both feet; Opioid abuse, in remission (CMS/[facility]) Start: 11-23-2023 End: 11-23-2023 ambulatory SONYA ROBERTSZPATRICK Not Available Start: 11-23-2023 End: 11-23-2023 Bamboo flowsheet Sonya Villa CARE CENTER MANAGER Work Phone: [facility] Start: 11-23-2023 End: 11-23-2023 Bamboo flowsheet Sonya Villa CARE CENTER MANAGER Work Phone: [facility] Start: 11-23-2023 End: 11-23-2023 Patient encounter status Sonya Villa CARE CENTER MANAGER Work Phone: [facility] Start: 10-11-2023 End: 10-11-2023 ambulatory SONYA ROBERTSZPATRICK Not Available Start: 10-11-2023 End: 10-11-2023 Office outpatient visit 15 minutes Sonya Villa CARE CENTER MANAGER Work Phone: [facility] Comment on above: Encounter for weight management (Primary Dx) Start: 08-12-2023 End: 08-12-2023 ambulatory KISER FAWWAD Not Available Start: 07-13-2023 End: 07-13-2023 ambulatory KISER FAWWAD Not Available Start: 06-10-2023 End: 06-10-2023 ambulatory KISER FAWWAD Not Available Start: 05-26-2023 End: 05-26-2023 ambulatory URIAH AICHHOLZ Not Available Start: 05-04-2023 End: 05-04-2023 ambulatory KISER BARBWWAD Not Available Start: 04-19-2023 End: 04-19-2023 ambulatory KISER FAWWAD Not Available Start: 04-05-2023 End: 04-05-2023 ambulatory KISER FAWWAD Not Available Start: 04-05-2023 Patient encounter status Sonya Villa CARE CENTER MANAGER Work Phone: [facility] Start: 07-14-2022 End: 07-15-2022 ambulatory Liliane Devries PA-C [facility] Start: 07-06-2022 End: 07-07-2022 ambulatory Liliane Devries PA-C Facility[facility] Start: 06-26-2022 End: 06-27-[address] JESSICA GARG . Facility:[facility] Start: 06-16-2022 End: 06-16-2022 ambulatory KISER Magali EMILIANA Facility:[facility] Start: 06-11-2022 End: 06-12-[address] JESSICA GARG . Facility:[facility] Start: 05-28-2022 End: 05-29-2022 ambulatory Suresh Broderick MD Facility:[facility] Start: 04-22-2022 End: 04-22-2022 ambulatory KISER H FACrisWAD Facility:[facility] Start: 08-11-2021 End: 08-12-2021 ambulatory KISER H FACrisWAD Facility:[facility] Start: 04-24-2019 End: 04-24-2019 [facility] Start: 04-05-2018 End: 04-05-2018 Emergency department patient visit NO FAMILY DOCTOR NO FAMILY DOCTOR Facility:[facility] [employer] Start: 02-01-2018 End: 02-02-2018 Patient encounter procedure [facility] Start: 01-31-2018 End: 02-01-2018 Patient encounter procedure [facility] Start: 01-30-2018 End: 01-31-2018 Patient encounter procedure [facility] Start: 01-29-2018 End: 01-30-2018 Patient encounter procedure [facility] Start: 01-28-2018 End: 01-29-2018 [facility] Start: 01-27-2018 End: 01-28-2018 [facility] Start: 01-26-2018 End: 01-27-2018 [facility] Start: 01-25-2018 End: 01-26-2018 [facility] Start: 01-24-2018 End: 01-25-2018 [facility] Start: 01-23-2018 End: 01-24-2018 [facility] Start: 01-22-2018 End: 01-23-2018 Patient encounter procedure TINA A DIANNE [facility] Start: 01-21-2018 End: 01-22-2018 [facility] Start: 01-20-2018 End: 01-21-2018 [facility] Start: 01-19-2018 End: 01-20-2018 Patient encounter procedure TINA A DIANNE [facility] Start: 01-18-2018 End: 01-19-2018 [facility] Start: 01-17-2018 End: 01-18-2018 [facility] Start: 01-16-2018 End: 01-17-2018 [facility] Start: 01-15-2018 End: 01-16-2018 Patient encounter procedure TINA A [facility] [facility] Start: 01-14-2018 End: 01-15-2018 Patient encounter procedure [facility]INA [facility] Start: 01-13-2018 End: 01-14-2018 Patient encounter procedure TINA A [facility] Start: 01-12-2018 End: 01-13-2018 Patient encounter procedure [facility]INA [facility] Start: 01-11-2018 End: 01-12-2018 Patient encounter procedure TINA A [facility] Start: 01-10-2018 End: 01-11-2018 Patient encounter procedure [facility] Start: 01-09-2018 End: 01-10-2018 Patient encounter procedure TINA Renetta [facility] Start: 01-08-2018 End: 01-09-2018 Patient encounter procedure TINA aJckson [facility] Start: 01-07-2018 End: 01-08-2018 Patient encounter procedure TINA Renetta [facility] Start: 01-06-2018 End: 01-07-2018 Patient encounter procedure TINA Renetta [facility] Start: 01-05-2018 End: 01-06-2018 Patient encounter procedure TINA Renetta [facility] Start: 12-26-2017 End: 01-04-2018 Evaluation and management of inpatient [facility] [place] Start: 12-25-2017 End: 12-25-2017 Emergency department patient visit [facility] Procedures Date Procedure Procedure Detail Performing Clinician Start: 03-10-2024 ALL CBC WITH AUTO DIFF Sonya Villa CARE CENTER MANAGER Work Phone: Start: 08-25-2022 Microscopic observat ion [Identifier] in Cervix by Cyto stain Sonya Villa CARE CENTER MANAGER Work Phone: Start: 04-24-2019 DISCHARGE PATIENT UNKNO WN PROVIDER Start: 02-01-2018 REMOVE PICC IVAN TO BEY Start: 02-01-2018 Basic metabolic pane l calcium total IVAN JIM Start: 02-01-2018 Blood count complete automated IVAN JMI Start: 01-25-2018 Basic metabolic pane l calcium [...] 01-04-2018 Basic metabolic pane l calcium total Start: 01-04-2018 INCENTIVE SPIROMETRY RT Start: 01-04-2018 INITIATE OXYGEN THER APY PROTOCOL Start: 01-04-2018 PULSE OXIMETRY, CONTINUOUS Start: 01-04-2018 INCENTIVE SPIROMETRY RT Start: 01-04-2018 Blood count complete auto&auto difrntl wbc Start: 01-04-2018 INCENTIVE SPIROMETRY RT Start: 01-04-2018 INCENTIVE SPIROMETRY RT Start: 01-04-2018 Culture bacterial bl ood aerobic w/id isolates Start: 01-04-2018 PULSE OXIMETRY, CONTINUOUS Start: 01-04-2018 INCENTIVE SPIROMETRY RT Start: 01-04-2018 INCENTIVE SPIROMETRY RT Start: 01-04-2018 PULSE OXIMETRY, CONTINUOUS Start: 01-04-2018 INCENTIVE SPIROMETRY RT Start: 01-04-2018 INCENTIVE SPIROMETRY RT Start: 01-03-2018 INCENTIVE SPIROMETRY RT Start: 01-03-2018 PULSE OXIMETRY, CONTINUOUS Start: 01-03-2018 CULTURE BLOOD #1 Start: 01-03-2018 Microscopic examinat ion of blood, culture Start: 01-03-2018 INCENTIVE SPIROMETRY RT Start: 01-03-2018 INCENTIVE SPIROMETRY RT Start: 01-03-2018 PULSE OXIMETRY, CONTINUOUS Start: 01-03-2018 INCENTIVE SPIROMETRY RT Start: 01-03-2018 INCENTIVE SPIROMETRY RT Start: 01-03-2018 PULSE OXIMETRY, CONTINUOUS Start: 01-03-2018 INCENTIVE SPIROMETRY RT Start: 01-03-2018 NURSING COMMUNICATION Y Start: 01-03-2018 INCENTIVE SPIROMETRY RT Start: 01-03-2018 INCENTIVE SPIROMETRY RT VERO Start: 01-03-2018 INITIATE OXYGEN THER APY PROTOCOL Start: 01-03-2018 PULSE OXIMETRY, CONTINUOUS VERO Start: 01-03-2018 INCENTIVE SPIROMETRY RT Start: 01-03-2018 INCENTIVE SPIROMETRY RT Start: 01-03-2018 INCENTIVE SPIROMETRY RT Start: 01-03-2018 PULSE OXIMETRY, CONTINUOUS VERO Start: 01-03-2018 INCENTIVE SPIROMETRY RT Start: 01-03-2018 INCENTIVE SPIROMETRY RT Start: 01-03-2018 PULSE OXIMETRY, CONTINUOUS VERO Start: 01-03-2018 INCENTIVE SPIROMETRY RT Start: 01-02-2018 INCENTIVE SPIROMETRY RT Start: 01-02-2018 PULSE OXIMETRY, CONTINUOUS Start: 01-02-2018 INCENTIVE SPIROMETRY RT Start: 01-02-2018 INCENTIVE SPIROMETRY RT Start: 01-02-2018 PULSE OXIMETRY, CONTINUOUS Start: 01-02-2018 INCENTIVE SPIROMETRY RT Start: 01-02-2018 INCENTIVE SPIROMETRY RT Start: 01-02-2018 PULSE OXIMETRY, CONTINUOUS Start: 01-02-2018 INCENTIVE SPIROMETRY RT Start: 01-02-2018 INCENTIVE SPIROMETRY RT Start: 01-02-2018 Drug tst prsmv instr mnt chem analyzers pr date Start: 01-02-2018 INCENTIVE SPIROMETRY RT VERO Start: 01-02-2018 INITIATE OXYGEN THER APY PROTOCOL Start: 01-02-2018 PULSE OXIMETRY, CONTINUOUS VERO Start: 01-02-2018 INCENTIVE SPIROMETRY RT Start: 01-02-2018 Blood count complete auto&auto difrntl [...] RT VERO Start: 01-01-2018 NURSING COMMUNICATION Y [facility] Start: 01-01-2018 INCENTIVE SPIROMETRY RT VERO Start: 01-01-2018 PULSE OXIMETRY, CONTINUOUS Start: 01-01-2018 INCENTIVE SPIROMETRY RT Start: 01-01-2018 INCENTIVE SPIROMETRY RT Start: 01-01-2018 INITIATE OXYGEN THER APY PROTOCOL Start: 01-01-2018 PULSE OXIMETRY, CONTINUOUS Start: 01-01-2018 [...] RT Start: 12-31-2017 PULSE OXIMETRY, CONTINUOUS VERO BAGHDY Start: 12-31-2017 INCENTIVE SPIROMETRY RT VERO BAGHDY Start: 12-31-2017 Fluoro central venou s access dev placement VERO BAGHDY Start: 12-31-2017 Insj prph cvc w/o house bq port/golf club maker age 5 yr/> VERO BAGHDY Start: 12-31-2017 [...] BAGHDY Start: 12-31-2017 NURSING COMMUNICATION Y ACOUB BAGHD Start: 12-31-2017 INCENTIVE SPIROMETRY RT VERO BAGHDY [...] culture VERO Start: 12-31-2017 INCENTIVE SPIROMETRY RT VERO [...] RT VERO Start: 12-30-2017 INCENTIVE SPIROMETRY RT Start: 12-30-2017 INCENTIVE SPIROMETRY RT VERO Start: 12-30-2017 PULSE OXIMETRY, CONTINUOUS VERO Start: 12-30-2017 INCENTIVE SPIROMETRY RT VERO Start: 12-30-2017 [facility] Start: 12-[facility]-2017 Blood count complete auto&auto difrntl wbc Start: 12-30-2017 Comprehensive metabo lic panel Start: 12-30-2017 INCENTIVE SPIROMETRY RT Start: 12-30-2017 Ct maxillofacial w/o contrast material Start: 12-30-2017 INITIATE OXYGEN THER APY PROTOCOL Start: 12-30-2017 PULSE OXIMETRY, CONTINUOUS VERO Start: 12-30-2017 INCENTIVE SPIROMETRY RT VERO Start: 12-30-2017 INCENTIVE SPIROMETRY RT VERO Start: 12-30-2017 INCENTIVE SPIROMETRY RT VERO Start: 12-30-2017 PULSE OXIMETRY, CONTINUOUS VERO BAGHD Start: 12-30-2017 INCENTIVE SPIROMETRY RT VERO Start: 12-30-2017 INCENTIVE SPIROMETRY RT VERO Start: 12-30-2017 PULSE OXIMETRY, CONTINUOUS VERO BAGHDY [...] OXIMETRY, CONTINUOUS VERO BAGHDY Start: 12-29-2017 CYTOLOGY, NON-WATER METER INSTALLER YACOU B BAGHDY Start: 12-29-2017 INCENTIVE SPIROMETRY RT VERO BAGHDY Start: 12-29-2017 INCENTIVE SPIROMETRY RT VERO BAGHDY Start: 12-29-2017 INITIATE OXYGEN THER APY PROTOCOL VERO BAGHDY Start: 12-29-2017 PULSE OXIMETRY, CONTINUOUS VERO BAGHDY Start: 12-29-2017 INCENTIVE SPIROMETRY RT VERO Start: 12-29-2017 Blood count complete automated VERO Start: 12-29-2017 Prothrombin time VERO Start: 12-29-2017 INCENTIVE SPIROMETRY RT VERO Start: 12-29-2017 INCENTIVE SPIROMETRY RT VERO Start: 12-29-2017 PULSE OXIMETRY, CONTINUOUS VERO Start: 12-29-2017 INCENTIVE SPIROMETRY RT VERO Start: 12-29-2017 IP CONSULT TO NAYA AL DEPENDENCY VERO Start: 12-29-2017 INCENTIVE SPIROMETRY [...] 12-28-2017 PULSE OXIMETRY, CONTINUOUS VERO Start: 12-28-2017 Blood count complete automated Start: 12-28-2017 INCENTIVE SPIROMETRY RT VERO Start: 12-28-2017 INCENTIVE SPIROMETRY RT VERO Start: 12-28-2017 Radiologic exam ches t single view VERO Start: 12-28-2017 INCENTIVE SPIROMETRY RT VERO Start: 12-28-2017 INITIATE OXYGEN THER APY PROTOCOL VERO Start: 12-28-2017 PULSE OXIMETRY, CONTINUOUS VERO BAGHDY Start: 12-28-2017 INCENTIVE SPIROMETRY RT VERO Start: 12-28-2017 INCENTIVE SPIROMETRY RT VERO Start: 12-28-2017 PULSE OXIMETRY, CONTINUOUS VERO BAGHDY Start: 12-28-2017 INCENTIVE SPIROMETRY RT VERO DIANE Start: 12-28-2017 INCENTIVE SPIROMETRY RT VERO DIANE Start: 12-28-2017 FULL CODE VERO VIKI PALMA Start: 12-28-2017 NURSING COMMUNICATION Y VINICIUS DALTON Start: 12-28-2017 PULSE OXIMETRY, CONTINUOUS VERO BAGHDY Start: 12-28-2017 VERIFY INFORMED CONSENT VERO Start: 12-28-2017 INCENTIVE SPIROMETRY RT VERO DIANE Start: 12-28-2017 INCENTIVE SPIROMETRY RT VERO DIANE Start: 12-27-2017 INCENTIVE SPIROMETRY RT VERO MINERVA Start: 12-27-2017 INCENTIVE SPIROMETRY RT VERO MINERVA Start: 12-27-2017 AMBULATE PATIENT VERO DIANE Start: 12-27-2017 ASSESS GAG REFLEX FREDDIEU Lila Start: 12-27-2017 INITIATE OXYGEN THER APY PROTOCOL VERO Start: 12-27-2017 TOBACCO CESSATION EDUCATION VERO Start: 12-27-2017 VITAL SIGNS VERO MINERVA Start: 12-27-2017 WOUND CARE VERO Start: 12-27-2017 ADVANCE DIET TOLE RATED (NURSING COMMUNICATION) VERO Start: 12-27-2017 INCENTIVE SPIROMETRY RT VERO DIANE Start: 12-27-2017 Echo transesophag r- t 2d w/prb img acquisj i&r VERO VIKI Start: 12-27-2017 INCENTIVE SPIROMETRY RT VERO MINERVA Start: 12-27-2017 INCENTIVE SPIROMETRY RT VERO Start: 12-27-2017 IP CONSULT TO CARDIOLOGY VERO Start: 12-27-2017 IP CONSULT TO PAIN MANAGEMENT VERO Start: 12-27-2017 IP CONSULT TO INFECT IOUS DISEASES VERO Start: 12-27-2017 INCENTIVE SPIROMETRY RT VERO Start: 12-27-2017 Echo tthrc r-t 2d w/wom-mode compl spec&colr d VERO VIKI Start: 12-27-2017 INCENTIVE SPIROMETRY RT VERO DIANE Start: 12-27-2017 TTE w or wo fol wcon,Doppler VERO Start: 12-27-2017 INCENTIVE SPIROMETRY RT VERO BAGHD Start: 12-27-2017 PREPARE RBC (CROSSMATCH) VERO Start: 12-27-2017 TYPE AND SCREEN VERO Start: 12-27-2017 INCENTIVE SPIROMETRY RT VERO Start: 12-27-2017 Blood count complete auto&auto difrntl wbc VERO Start: 12-27-2017 Ferritin [Mass/volum e] in Serum or Plasma VERO Start: 12-27-2017 IRON AND TIBC VERO Start: 12-27-2017 RETICULOCYTES VERO BA GHDY Start: 12-27-2017 INCENTIVE SPIROMETRY RT VERO Start: [...] BAGHD Start: 12-26-2017 INCENTIVE SPIROMETRY RT VERO BAGHD Start: 12-26-2017 RAPID INFLUENZA A/B ANTIGENS VERO HD Start: 12-26-2017 ACID FAST CULTURE WI TH SMEAR VERO BAGHDY Start: 12-26-2017 INCENTIVE SPIROMETRY RT VERO Start: 12-26-2017 Apolipoprotein each JEWEL OUB BAG Start: 12-26-2017 Culture bacterial bl ood aerobic w/id isolates VERO Start: 12-26-2017 HEPATITIS B CORE ANT IBODY, TOTAL VERO BAGHDY Start: 12-26-2017 HEPATITIS C ANTIBODY YA COUB BAGHDY Start: 12-26-2017 HEPATITIS C RNA, QUANTITATIVE, PCR VERO BAGHD Start: 12-26-2017 Tb cell mediated ant ign respnse gamma interferon VERO BAGHDY Start: 12-26-2017 TRANSFERRIN VERO BAG HDY Start: 12-26-2017 CONTACT ISOLATION [employer] BAGHDY Start: 12-26-2017 IP CONSULT TO PULMONOLOGY [...] Start: 12-25-2017 LACTIC ACID, PLASMA TANIKA TEENA FERNANDEZ Start: 12-25-2017 Prothrombin time TARA FERNANDEZ Start: 12-25-2017 TROPONIN IVAN TO BEY Start: 12-25-2017 Radiologic exam ches t 2 views IVAN FERNANDEZ Start: 12-25-2017 Blood count complete auto&auto difrntl wbc IVAN FERNANDEZ Start: 12-25-2017 EKG 12-LEAD IVAN TO BEY Start: 12-25-2017 SALINE LOCK IV IVAN FERNANDEZ Plan of Treatment Date Care Activity Detail Author Start: 10-02-2027 Screening for malign ant neoplasm of cervix HPV/Cotest [facility] Start: 08-26-2027 Screening for malign ant neoplasm of cervix [facility] Start: 04-24-2024 End: 04-24-2024 Patient encounter procedure 04/24/2024 3:00 PM EDT Office Visit [facility] [address] [place] [address] Sonya Villa, CARE CENTER MANAGER [address] [place] [address] [facility] Start: 03-13-2024 End: 03-13-2024 Patient encounter procedure 03/13/2024 2:30 PM EST Office Visit [facility] [address] [place] [address] Sonya Villa, CARE CENTER MANAGER [address] [place] [address] [facility] Start: 03-13-2024 End: 03-13-2025 25-hydroxyvitamin D3 [Mass/volume] in Serum or Plasma Vitamin D 25 hydroxy Lab Routine Fatigue, unspecified type Anemia, unspecified type Expected: 03/13/2024 (Approximate), Expires: 03/13/2025 [facility] Comment on above: Expected: 03/13/2024 (Approximate), Expires: 03/13/2025 Start: 03-13-2024 End: 03-13-2025 Cobalamin (Vitamin B12) [Mass/volume] in Serum or Plasma Vitamin B12 Lab Routine Fatigue, unspecified type Anemia, unspecified type Expected: 03/13/2024 (Approximate), Expires: 03/13/2025 [facility] Work Phone: Comment on above: Expected: 03/13/2024 (Approximate), Expires: 03/13/2025 Start: 03-13-2024 End: 03-13-2025 Ferritin [Mass/volume] in Serum or Plasma Ferritin Lab Routine Fatigue, unspecified type Anemia, unspecified type Expected: 03/13/2024 (Approximate), Expires: 03/13/2025 [facility] Comment on above: Expected: 03/13/2024 (Approximate), Expires: 03/13/2025 Start: 03-13-2024 End: 03-13-2025 Folate [Mass/volume] in Serum or Plasma Folate Lab Routine Fatigue, unspecified type Anemia, unspecified type Expected: 03/13/2024 (Approximate), Expires: 03/13/2025 [facility] Comment on above: Expected: 03/13/2024 (Approximate), Expires: 03/13/2025 Start: 03-13-2024 End: 03-13-2025 Iron + transferrin + TIBC Iron + transferrin + TIBC Lab Routine Fatigue, unspecified type Anemia, unspecified type Expected: 03/13/2024 (Approximate), Expires: 03/13/2025 [facility] Comment on above: Expected: 03/13/2024 (Approximate), Expires: 03/13/2025 Start: 03-13-2024 End: 03-13-2025 Measurement of occult blood in single stool specimen Occult blood x 1, stool Lab Routine Anemia, unspecified type Expected: 03/13/2024 (Approximate), Expires: 03/13/2025 [facility] Comment on above: Expected: 03/13/2024 (Approximate), Expires: 03/13/2025 Start: 12-28-2023 End: 12-28-2023 Patient encounter procedure 12/28/2023 3:30 PM EST Office Visit [facility] [address] [place] [address] Sonya Villa NP [address] [place] [address] [facility] Start: 11-23-2023 End: 11-23-2023 Patient encounter procedure 11/23/2023 3:30 PM EDT Office Visit [facility] [address] [place] [address] Sonya Villa, CARE CENTER MANAGER [address] [facility] [place] [address] Blood pressure elevated without history of HTN (Primary Dx); Morbid obesity (CMS/HCC) [facility] Comment on above: Blood pressure eleva yue without history of HTN (Primary Dx); Morbid obesity (CMS/HCC) Start: 11-23-2023 End: 11-22-2024 CBC W Auto Differential panel - Blood CBC and differential Lab Routine Blood pressure elevated without history of HTN Encounter for wellness examination in adult Expected: 11/23/2023 (Approximate), Expires: 11/22/2024 [facility] Comment on above: Expected: 11/23/2023 (Approximate), Expires: 11/22/2024 Start: 11-23-2023 End: 11-22-2024 Comprehensive metabolic 2000 panel - Serum or Plasma Comprehensive metabolic panel Lab Routine Blood pressure elevated without history of HTN Encounter for wellness examination in adult Expected: 11/23/2023 (Approximate), Expires: 11/22/2024 [facility] Comment on above: Expected: 11/23/2023 (Approximate), Expires: 11/22/2024 Start: 11-23-2023 End: 11-22-2024 Hemoglobin A1c/Hemoglobin.total in Blood Hemoglobin A1c Lab Routine Encounter for wellness examination in adult Expected: 11/23/2023 (Approximate), Expires: 11/22/2024 [facility] Comment on above: Expected: 11/23/2023 (Approximate), Expires: 11/22/2024 Start: 11-23-2023 End: 11-22-2024 Lipid 1996 panel - Serum or Plasma Lipid panel Lab Routine Encounter for wellness examination in adult Expected: 11/23/2023 (Approximate), Expires: 11/22/2024 [facility] Comment on above: Expected: 11/23/2023 (Approximate), Expires: 11/22/2024 Start: 11-23-2023 End: 11-22-2024 TSH W/REFLEX TO FT4 TSH W/REFLEX TO FT4 Lab Routine Blood pressure elevated without history of HTN Encounter for wellness examination in adult Expected: 11/23/2023 (Approximate), Expires: 11/22/2024 [facility] Work Phone: Comment on above: Expected: 11/23/2023 (Approximate), Expires: 11/22/2024 Start: 11-11-2023 End: 11-11-2023 Patient encounter procedure 11/11/2023 3:30 PM EDT Office Visit [facility] [address] [place] [address] Sonya Villa, BEATRIZ [address] [place] [address] [facility] Start: 10-17-2023 Influenza vaccination Influenza Vacc ine (#1) [facility] Comprehensive metabo lic 2000 panel - Serum or Plasma Comprehensive metabolic panel Lab Routine Primary hypertension ([facility]/HCC) Ordered: 03/09/2024 [facility] Work Phone: Comment on above: Ordered: 03/09/2024 Immunizations Immunization Date Immunization Notes Care Provider Fa [facility] 03-11-2018 influenza, injectabl e, quadrivalent, contains preservative Sonya Villa CARE CENTER MANAGER Work Phone: [facility] 03-11-2018 influenza virus vaccine, unspecified formulation Sonya Villa CARE CENTER MANAGER Work Phone: [facility] Payers Date Payer Category Payer Unknown 2022 Medicaid [id number] 2018 Medicaid [id number] 2017 Medicaid ACUTE 04-15-2016 Medicaid [id number] 1985 Unknown [id number] 2.16.84 [id number] 1985 Unknown [id number] 2.16.8 40.1.552975.3.579.2.182 1985 Unknown [id number] 2.16. [id number] 1985 Unknown [id number] 2.16.84 0.1.626707.3.579.2.593 1985 Unknown [id number] 2.16.84 0.1.934267.3.579.2.593 1985 Unknown [id number] 2.16.84 0.1.643893.3.579.2.593 1985 Unknown [id number] 2.16.84 0.1.654136.3.579.2.593 1985 Unknown [id number] 2.16.84 0.1.790622.3.579.2.593 1985 Unknown [id number] 2.16. 840.1.945977.3.579.2.196 1985 Unknown [id number] 2.16. 840.1.451903.3.579.2.196 1985 Unknown [id number] 2.16. 840.1.766002.3.579.2.196 1985 Unknown [id number] 2.16.84 0.1.807741.3.579.2.1259 1985 Unknown [id number] 2.16.84 0.1.804495.3.579.2.1259 1985 Unknown [id number] 2.16.84 0.1.432492.3.579.2.1259 1985 Unknown [id number] 2.16.84 0.1.990514.3.579.2.1259 1985 Unknown [id number] 2.16.84 0.1.514535.3.579.2.1259 1985 Unknown [id number] 2.16.84 0.1.991441.3.579.2.125 1985 Unknown [id number] 2.16.84 0.1.219862.3.579.2.1259 1985 Unknown [id number] 2.16.84 0.1.755864.3.579.2.1259 1985 Unknown [id number] 2.16.84 0.1.270607.3.579.2.1259 1985 Unknown [id number] 2.16.84 0.1.280860.3.579.2.1259 1985 Unknown [id number] 2.16.84 0.1.924352.3.579.2.1259 02-15-1959 Unknown [id number] Self-pay Unknown [id number] 2.16.8 [id number] Social History Date Type Detail Facility Start: 08-12-2023 Tobacco smoking stat [facility] Occasional tobacco smoker [facility] History of tobacco use Cigarette Smoker [facility] History of tobacco use Passive smoker [facility] Start: 08-12-2023 Tobacco use and exposure Smokeless t obacco non-user [facility] Start: 10-11-2023 End: 03-13-2024 Alcoholic beverage intake [facility]-drinker (finding) [facility] Start: 10-11-2023 End: 03-13-2024 History of Social function [facility] Start: 10-11-2023 End: 03-13-2024 Tobacco use panel [facility] Start: 07-25-2022 Tobacco Comment Thinking about quitt ing [facility] Start: 1985 Sex assigned at Not on file [facility] Clinical Notes 10-11-2023 to 03-13-2024 Sonya Villa, BEATRIZ - 03/13/2024 3:07 PM Mejia Villa NP - 03/13/2024 3:06 PM Mejia Villa, BEATRIZ - 03/13/2024 3:02 PM Mejia Villa, BEATRIZ - 03/13/2024 2:30 PM EST Note Date & Type Note Facility 03-13-2024 History of Presen t illness Narrative Associated Problem(s): Wellness examination I have reviewed Ht/Wt/BMI, I have reviewed [...] hours of sleep per night. Associated Problem(s): Acute paronychia of right thumb Was seen in office 3 days ago for paronychia without abscess. Treated with doxycycline and mupirocin. Encouraged warm water soaks and mupirocin application 2-3 times per day X5 days. Pt went to ER for swelling over weekend. Was lanced and continued on regimen of Doxycyline and Mupirocin. Advised pt to continue current regimen. Advised pt to report to ER with fever/chills/redness/swelling. Associated Problem(s): Primary hypertension ([facility]) Currently taking hydrochlorothiazide 12.5mg and Losartan 25mg. Was strarted on Lopsartan 25mg on Wednesday of last week (3 days ago) Checks BP at home; Averages are 140's systolic. Will continue to monitor and increase medication if necessary in 2 weeks. Denies orthostatic changes, dizziness, cough, shortness of breath, swelling in extremities. Continue current regimen. Given BP log, advised pt to record BP and bring log and to call the office with readings in 2 weeks. Images from the original note were not included. Subjective Patient ID: Alesha Kenney is a 38 y.o. female who presents for wellness. HPI HTN: Currently taking hydrochlorothiazide 12.5mg and Losartan 25mg. Was started on Losartan 25mg on Wednesday of last week (3 days ago) Checks BP at home; Averages are 140's systolic. Will continue to monitor and increase medication if necessary in 2 weeks. Denies orthostatic changes, dizziness, cough, shortness of breath, swelling in extremities. Continue current regimen. Given BP log, advised pt to record BP and bring log and to call the office with readings in 2 weeks. Discussed labs in thorough detail with patient. Will order anemia panel to determine source of longstanding anemia. Check Vitamin D and B levels as well. Review of Systems Constitutional: Positive for fatigue. Negative for activity change, appetite change, chills, fever, night sweats and unexpected weight change. HENT: Negative for congestion, ear pain, rhinorrhea, sinus pressure, sinus pain, sore throat, trouble swallowing and voice change. Eyes: Negative for discharge and visual disturbance. Respiratory: Negative for chest tightness, shortness of breath and wheezing. Cardiovascular: Negative for chest pain, palpitations and leg swelling. Gastrointestinal: Negative for abdominal distention, abdominal pain, blood in stool, constipation, diarrhea, nausea and vomiting. Genitourinary: Negative for difficulty urinating, dysuria, flank pain, hematuria and pelvic pain. Musculoskeletal: Negative for arthralgias, joint swelling and neck pain. Skin: Negative for rash and wound. Neurological: Negative for dizziness, tremors, syncope, weakness, light-headedness, numbness and headaches. Psychiatric/Behavioral: Negative for sleep disturbance and suicidal ideas. The patient is not nervous/anxious. Hematological: Does not bruise/bleed easily. Endocrine: Negative for cold intolerance, heat intolerance, polydipsia, polyphagia and polyuria. Objective Physical Exam Constitutional: Appearance: Normal appearance. HENT: Head: Normocephalic. Right Ear: External ear normal. Left Ear: External ear normal. Nose: Nose normal. Mouth/Throat: Mouth: Mucous membranes are moist. Pharynx: Oropharynx is clear. Eyes: Pupils: Pupils are equal, round, and reactive to light. Cardiovascular: Rate and Rhythm: Normal rate and regular rhythm. Pulses: Normal pulses. Pulmonary: Effort: Pulmonary effort is normal. Breath sounds: Normal breath sounds. Abdominal: General: Abdomen is flat. Bowel sounds are normal. Palpations: Abdomen is soft. Musculoskeletal: General: Normal range of motion. Cervical back: Normal range of motion. Skin: General: Skin is warm. Capillary Refill: Capillary refill takes less than 2 seconds. Neurological: Mental Status: She is alert and oriented to person, place, and time. Psychiatric: Mood and Affect: Mood normal. Behavior: Behavior normal. Assessment/Plan Problem List Items Addressed This Visit Wellness examination I have reviewed Ht/Wt/BMI, I have reviewed [...] GOAL 6-8 hours of sleep per night. Anemia Relevant Orders Vitamin B12 Ferritin Iron + transferrin + TIBC Folate Vitamin D 25 hydroxy Occult blood x 1, stool Acute paronychia of right thumb Was seen in office 3 days ago for paronychia without abscess. Treated with doxycycline and mupirocin. Encouraged warm water soaks and mupirocin application 2-3 times per day X5 days. Pt went to ER for swelling over weekend. Was lanced and continued on regimen of Doxycyline and Mupirocin. Advised pt to continue current regimen. Advised pt to report to ER with fever/chills/redness/swelling. Fatigue - Primary Relevant Orders Vitamin B12 Ferritin Iron + transferrin + TIBC Folate Vitamin D 25 hydroxy documented in this encounter [facility] 03-13-2024 Instructions Sonya Villa NP - 03/13/2024 2:30 PM EST Continue and finish antibiotics as directed. Continue using Mupirocin ointment. Continue checking BP once daily in the afternoon. Call my office in 2 weeks with blood pressure readings. Have blood work completed. This is NON-fasting! documented in this encounter [facility] 03-09-2024 History of Presen t illness Narrative [...] Comprehensive metabolic panel documented in this encounter [facility] 03-09-2024 Instructions Sonya Villa NP - 03/09/2024 [...] your next visit. documented in this encounter [facility] 11-23-2023 History of Presen t illness Narrative Associated Problem(s): Opioid use disorder in remission Follows with [facility]. Was seeing Hope Jimenez. Currently takes Suboxone [...] y.o. female who [facility] HPI 10 months post Is not [...] in remission ([facility]) documented in this encounter [facility] 11-23-2023 Instructions Sonya Villa NP - 11/23/2023 [...] black coffee ok. documented in this encounter [facility] 10-11-2023 History of Presen t illness Narrative [...] day. Consider tracking your food intake on [employer] or [employer] Water: Increase water intake; GOAL [...] management - Primary Pt meets qualifications of [facility] 4730-12-19 for [...] sleep per night. documented in this encounter [facility] 10-11-2023 Instructions Sonya Villa NP - 10/11/2023 [...] Call about Acupuncture!!! documented in this encounter [facility] Evaluation note Diagnosis Blood pressure elevated without history of HTN- Primary Morbid obesity (CMS/HCC) Morbid obesity Encounter for wellness examination in adult Tinea pedis of both feet Opioid abuse, in remission (CMS/HCC) Opioid abuse, in remission [facility] Diagnosis URTI (acute upper respiratory infection)- Primary [...] sinusitis- Primary [facility] Diagnosis Encounter for weight management- Primary [facility] Diagnosis URTI (acute upper respiratory infection)- Primary [...] essential hypertension [facility] Diagnosis URTI (acute upper respiratory infection)- Primary [...] Primary Primary hypertension (CMS/HCC) Unspecified essential hypertension Wellness examination- Primary Fatigue, unspecified type Anemia, unspecified type Acute paronychia of right thumb documented in this encounter [facility] Summary [...] section and content) DATE CREATED AUTHOR 02/04/2018 [facility] DATE CREATED AUTHOR AUTHOR'S ORGANIZ ATION 02/19/2018 [facility] DATE CREATED AUTHOR AUTHOR'S ORGANIZ ATION 05/02/2018 [facility] DATE CREATED AUTHOR AUTHOR'S ORGANIZ ATION 03/15/2021 [facility] DATE CREATED AUTHOR AUTHOR'S ORGANIZ ATION 06/29/2022 [facility] DATE CREATED AUTHOR AUTHOR'S ORGANIZ ATION 07/25/2022 [facility] DATE CREATED AUTHOR AUTHOR'S ORGANIZ ATION 03/14/2024 [facility] Care Teams (unrecognized sec tion and content) Data Processing Consultant Relationship Specialty Start Date End Date Navarro Haider MD [address] [place] [phone] PCP - General Family Medicine 09/15/23 Sonya Villa NP [address] [place] [phone] Nurse Practitioner Family Medicine 09/15/23 Data Processing Consultant Relationship Specialty Start Date End Date Navarro Haider MD [address] [place] [phone] PCP - General Family Medicine 09/15/23 Sonya Villa NP [address] [place] [phone] Nurse Practitioner Family Medicine 09/15/23 Data Processing Consultant Relationship Specialty Start Date End Date Navarro Haider MD [address] [place] [phone] PCP - General Family Medicine 09/15/23 Sonya Villa NP [address] [place] [phone] Nurse Practitioner Family Medicine 09/15/23 Data Processing Consultant Relationship Specialty Start Date End Date Navarro Haider MD [address] [place] [phone] PCP - General Family Medicine 09/15/23 Sonya Villa NP [address] [place] [address] Nurse Practitioner Family Medicine 09/15/23 Data Processing Consultant Relationship Specialty Start Date End Date Navarro Haider MD [address] [place] [phone] PCP - General Family Medicine 09/15/23 Sonya Villa NP [address] [place] [phone] Nurse Practitioner Family Medicine 09/15/23 Data Processing Consultant Relationship Specialty Start Date End Date Navarro Haider MD [address] [place] [phone] PCP - General Family Medicine 09/15/23 Sonya Villa NP [address] [place] [address] Nurse Practitioner Family Medicine 09/15/23 Data Processing Consultant Relationship Specialty Start Date End Date Navarro Haider MD [address] [place] [phone] PCP - General Family Medicine 09/15/23 Sonya Villa NP [address] [place] [address] Nurse Practitioner Family Medicine 09/15/23 Data Processing Consultant Relationship Specialty Start Date End Date Navarro Haider MD [address] [place] [phone] PCP - General Family Medicine 09/15/23 Sonya Villa NP [address] [place] [address] Nurse Practitioner Family Medicine 09/15/23 Reason for Visit (unrecogniz ed section and content) Reason Comments Follow-up From [facility] Reason Comments Obesity Reason Comments cracked skin Right thumb, cracked skin, sore to touch Reason Comments wellness FOR RECORDS PERTAINING TO PATIENTS WHO ARE [...] BE BASED ON THE PRIMARY CLINICAL RECORDS. [employer] provides no warranty or guarantee of the accuracy or completeness of information in this document.
[2024-03-22 04:07] LABS: Vitamin B12 639 pg/mL (232-1245)
[2024-03-22 05:06] LABS: Transferrin 206 mg/dL (192-364)
== END 2024-03-20 16:45 | disposition home or self-care (01) ==
LOC: LAB 16:44
DX: R53.83 Other fatigue (principal); D64.9 Anemia, unspecified
CPT/HCPCS: 36415; 82306; 82607; 82728; 82746; 83540; 83550; 84466

== ENCOUNTER 2024-03-21 16:21 | Outpatient (REF) | payer MEDICAID, SELFPAY ==
--- OUTSIDE RECORDS SUMMARY | 2024-03-21 16:39 | XMS_ITS | CCD ---
Author Organization [facility] Providers Care [employer] Name Role Phone IVAN FERNANDEZ Unavailable Unavailable [...] Unavailable Meggan MCKEON, Suresh Stallings Attending Unavaila Navarro Fuentes MD Primary Care Provider [phone] Allen POLE SHAVER HELPER, Sonya Unavailable SONYA VILLA Attending Unavailabl e ALLEN, SONYA Attending Unavailabl e FAWWAD, KISER Attending Unavailable FAWWAD, KISER Attending Unavailable FAWWAD, KISER Attending Unavailable AICURIAH KEE Attending Unavailable FAWWAD, KISER Attending Unavailable FAWWAD, KISER Attending Unavailable FAWWAD, KISER Attending Unavailable SONYA VILLA Attending Unavailabl e VILLA, SONYA Attending Unavailabl e Allergies Allergy Classification Reported Allergen(s) Allergy Type Date of Onset Reaction(s) Facility (14 sources) Acetaminophen / HYDROcodone; Translations: [HYDROCODONE-ACETAMI NOPHEN] Drug All[facility] 10-21-19 13 [facility] ([facility] sources) traMADol; Translations: [TRAMADOL] Drug Allergy 10-21-19 13 Unknown [facility] Repository (1 source) Acetaminophen / HYDROcodone Drug Allergy 08-28-19 16 [facility] Repository (1 source) Codeine Drug Allergy 05-08-19 09 [facility] Repository (1 source) Penicillin Drug Allergy 06-15-19 20 [facility] Repository (13 sources) Codeine Drug Allergy 07-29-19 23 [facility] Work Phone: (13 sources) Penicillin G Drug Allergy 12-30-19 23 [facility] (13 sources) Penicillins Propensity to adverse reactions 07-29-19 23 [facility] (13 sources) Sulfamethoxazole / Trimethoprim Drug Allergy 08-12-19 24 [facility] Work Phone: (13 sources) Vancomycin Drug Allergy 12-27-19 18 Anaphylaxis [facility] Medications Current Medications Medication Drug Class(es) Dates Sig (Normalized) Sig (Original) buprenorphine 8 mg / naloxone 2 mg sublingual film (13 sources) Partial Opioid Agonist, Opioid Antagonist Start: [...] 12/16/2023 Active etonogestrel 68 mg drug implant (13 sources) Progestin etonogestrel-elu ting (Nexplanon) 68 mg contraceptive implant 1 each by Implant route 1 (one) time Active fluticasone propionate 0.05 mg/actuat metered dose nasal spray (13 sources) Corticosteroid Start : 04-05 take 2 spray(s) nasal route in the morning fluticasone (Flonase) 50 MCG/ACT nasal spray Indications: Acute cough , Chronic allergic rhinitis Administer 2 sprays into each nostril in the morning. Shake gently. Before first use, prime pump. After use, clean tip and replace cap.. 16 g 2 04/05/2023 Active hydroCHLOROthiazide 12.5 mg oral tablet (10 sources) Thiazide Diuretic Start : 11-22 End: 11-22 take 1 tablet by mouth once daily hydroCHLOROthiazide (HYDRODiuril) 12.5 MG tablet Indications: Blood pressure elevated without history of HTN Take 1 tablet (12.5 mg) by mouth Daily 30 tablet 11 11/23/2023 11/22/2024 Active losartan potassium 25 mg oral tablet (6 sources) Angiotensin 2 Receptor Ketan Start : [...] Active naloxone hydrochloride 40 mg/ml nasal spray (6 sources) Opioid Antagonist Start : 03-02 naloxone [...] without sinus Onset: 04-05-2018 Episodic Essential hypertension (8 sources) Essential hypertension; Translations: [Essential (primary) hypertension] Onset: 03-09-2024 03-09-2024 Chronic Fever of unknown origin (1 source) Fever, unspecified; Translations: [Fever, unspecified] Onset: 12-25-2017 Episodic Hepatitis (1 source) Chronic viral hepatitis C; Translations: [CHRONIC VIRAL HEPATITIS C] Onset: 04-23-2022 Chronic Malaise and fatigue (5 sources) Fatigue; Translations: [Other fatigue] Onset: 03-13-2024 03-13-2024 Episodic Menstrual disorders (4 sources) Irregular menstruation, unspecified; Translations: [IRREGULAR MENSTRUATION UNSPECIFIED] Onset: 06-15-2022 Chronic Mycoses (2 sources) Tinea pedis; Translations: [Tinea pedis] 11-23-2023 Episodic Other lower respiratory disease (2 sources) Shortness of breath; Translations: [Shortness of breath] Onset: 04-05-2018 Episodic Other nutritional; endocrine; and metabolic disorders (15 sources) Morbid obesity; Translations: [Morbid (severe) obesity [...] 04-05-2018 Episodic Skin and subcutaneous tissue infections (12 sources) Paronychia of thumb; Translations: [Cellulitis of [...] Date Documented Da te Episodic/Chronic Administrative/social admission (15 sources) Patient encounter status; Translations: [Persons encountering health services in other specified circumstances] Onset: 10-11-2023 10-11-2023 Episodic Bacterial infection; unspecified site (14 sources) Bacteremia; Translations: [History of methicillin resistant Staphylococcus aureus infection] Onset: 12-26-2017 04-05-2023 Episodic Deficiency and other anemia (15 sources) Anemia; Translations: [Anemia, unspecified] Onset: 04-19-2023 04-19-2023 Episodic Immunizations and screening for infectious disease (13 sources) Hepatitis C antibody test positive; Translations: [Other specified abnormal immunological findings in serum] Onset: 09-22-2022 04-05-2023 Episodic Nonspecific chest pain (13 sources) Chest pain; Translations: [Other chest pain] Onset: 04-19-2023 04-19-2023 Episodic Other bone disease and musculoskeletal deformities (13 sources) Scapulalgia; Translations: [Other specified disorders of bone, shoulder] Onset: 04-19-2023 04-19-2023 Episodic Other circulatory disease (15 sources) Elevated blood-pressure reading without diagnosis of hypertension; Translations: [Elevated blood-pressure reading, without diagnosis of hypertension] Onset: 04-05-2023 04-05-2023 Episodic Other ear and sense organ disorders (13 sources) Lesion of external ear; Translations: [Disorder of left external ear, unspecified] Onset: 05-05-2023 05-05-2023 Episodic Other lower respiratory disease (11 sources) Cough; Translations: [Acute cough] Onset: 04-05-2023 04-05-2023 Episodic Other lower respiratory disease (2 sources) Cough; Translations: [Acute cough] Onset: 04-05-2023 04-05-2023 Episodic Other skin disorders (13 sources) Eruption; Translations: [Rash and other nonspecific skin eruption] Onset: 05-26-2023 05-26-2023 Episodic Other skin disorders (13 sources) Ingrowing nail; Translations: [Ingrowing nail] Onset: 08-12-2023 08-12-2023 Episodic Other skin disorders (13 sources) Skin lesion; Translations: [Disorder of the skin and subcutaneous tissue, unspecified] Onset: 08-12-2023 08-12-2023 Episodic Other upper respiratory infections (14 sources) Acute upper respiratory infection; Translations: [Acute upper respiratory infection, unspecified] Onset: 03-03-2023 03-03-2023 Episodic Beverly-; endo-; and myocarditis; cardiomyopathy (except that caused by tuberculosis or sexually transmitted disease) (14 sources) Acute and subacute infective endocarditis; Translations: [Bacterial endocarditis] Onset: 12-26-2017 04-05-2023 Episodic Pulmonary heart disease (13 sources) Septic pulmonary embolism; Translations: [Septic pulmonary embolism without acute cor pulmonale] Onset: 04-05-2023 04-05-2023 Episodic Unclassified (1 source) HIGH GRADE BACTREMIA,GNR MRSA,MULTIPLE PULMONARY NODULES; Translations: [HIGH GRADE BACTREMIA,GNR MRSA,MULTIPLE PULMONARY NODULES] Onset: 01-05-2018 Unclassified (1 source) CONTACT W/AND (SUSP) EXPOS COVID-19; Translations: [CONTACT W/AND (SUSP) EXPOS COVID-19] Onset: 06-16-2022 Results Test Name Value Interpretation Reference Range Facility [facility] 2024 TBH IRON 95 ug/dL 50.0 - 170.0 ug/dL [facility] TB PERCENT IRON SATURATION 37 % [facility] TOTAL IRON BINDING CAPACITY 257 ug/dL 250.0 - 450.0 ug/dL [facility] CBC WITH AUTO DIFFon BASOPHILS ABSOLUTE AUTO 0.1 [facility] Basophils/100 WBC (Bld) 1.5 % 0.2 - 2.0 % [facility] Eosinophils/100 WBC (Bld) 6.4 % 0.9 - 7.0 % [facility] Erythrocyte distribution width (RBC) [Ratio] 13.2 % 11.0 - 15.0 % [facility] Hematocrit (Bld) [Volume fraction] 36.9 % 36.0 - 48.0 % [facility] Hemoglobin (Bld) [Mass/Vol] 12.2 g/dL 12.0 - 16.0 g/dL [facility] IMMATURE GRANULOCYTES ABS AUTO 0.01 [facility] Immature granulocytes/100 WBC (Bld) 0.3 % 0.0 - 0.5 % [facility] Interpretation and review of laboratory results Abnormal [facility] LYMPHOCYTES ABSOLUTE AUTO 0.[address] [facility] Lymphocytes/100 WBC (Bld) 21.8 % 20.5 - 60.0 % [facility] MCH (RBC) [Entitic mass] 29.6 pg 26.7 - 34.[address] [facility] MCHC (RBC) [Mass/Vol] 33.1 g/dL 29.9 - 35.2 g/dL [facility] MCV (RBC) [Entitic vol] 89.6 fL 81.0 - 99.[address] [facility] MONOCYTES ABSOLUTE AUTO 0.3 [facility] Monocytes/100 WBC (Bld) 9.6 % 1.7 - 12.0 % [facility] NEUTROPHILS ABSOLUTE AUTO 2.1 [facility] Neutrophils/100 WBC (Bld) 60.4 % 43.0 - 75.0 % [facility] Platelet mean volume (Bld) [Entitic vol] 10.3 fL 9.5 - 13.[address] [facility] TBH EO # 0.2 [facility] PLT 139 Low [facility] RBC 4.[address] [facility] TB WBC 3.[address] [facility] CLINISYNC [facility] Otolaryngology Office/Clinic Noteon 07-14-2022 Otolaryngology [...] Liliane Devries PA-C 07/18/22 11:45 EDT Normal [facility] Otolaryngology Office/Clinic Noteon 07-06-2022 Otolaryngology Office/Clinic [...] g, 0 Refill(s), 07/20/22 15:17:00 EDT, Pharmacy: [facility]/pharmacy #[id number] Medical Decision Making Chronic conditions NOT treated [...] Oral Jitendra (more content not included)... Normal [facility] US PREG TVon 06-26-2022 US PREG [...] RODRIGO ACOSTA Date: 2022-06-26 09:18 Normal [facility] Covid-19 PCR ([facility])on SARS-CoV-2 (COVID-19) RNA AJNET+probe Ql (Unsp spec) Not detected Normal NOT DETECTED [facility] Comment on above: Result Comment: This test is not yet approved or cleared by the [place] FDA. When there are no FDA-approved or cleared tests available, and other criteria are met, FDA can make tests available under an emergency access mechanism called an Emergency Use Authorization (EUA). The EUA for this test is supported by the [employer] of Health and Human Service's (HHS's) declaration [...] consistent with SARS-CoV-2. Performed By: #### [facility] #### [facility] [address] [place] [address] Dr. Ja Cohen INFLUENZA A AND B AGon 06-16 INFLUANEGH SEE BELOW Normal [facility] Comment on above: Result Comment: Nega tive for Flu A protein angiten. Infection due to Flu A cannot be ruled out. Flu A angiten in the sample may be below the detection limit of the test. Performed By: #### I NFLUAB #### [facility] [address] [place] [address] Dr. Ja Cohen INFLUBNEGH SEE BELOW Normal [facility] Comment on above: Result Comment: Nega tive for Flu B protein antigen. Infection due to Flu B cannot be ruled out. Flu B antigen in the sample may be below the detection limit of the test. Performed By: #### I NFLUAB #### [facility] [address] [place] [address] Dr. Ja Cohen INFLUENZA A AG Negative Normal NEGATIVE SEE COMMENT [facility] Comment on above: Performed By: #### I NFLUAB #### [facility] [address] [place] [address] Dr. Ja Cohen INFLUENZA B AG Negative Normal NEGATIVE SEE COMMENT [facility] Comment on above: Performed By: #### I NFLUAB #### [facility] [address] [place] [address] Dr. Ja Cohen SYMPTOMATIC COVID-19 ANTIGEN on 06-16-2022 EUA Statement SEE BELOW Normal [facility] Comment on above: Result Comment: This [...] sooner. Performed By: #### C VDAGS #### [facility] [address] [address] [address] Ja Cohen SARS-CoV-2 (COVID-19) RNA JANET+probe Ql (Unsp spec) Negative Normal NEGATIVE [facility] Comment on above: Performed By: #### C VDAGS #### [facility] [address] [place] [address] Dr. Ja Cohen PREG QUANT HCGon 06-11-2022 HCG QUANT 74682 mIU/mL Normal [facility] Comment on above: Performed By: #### P REGQNT #### [facility] [address] [place] [address] Dr. Ja Cohen HCG RANGE SEE BELOW Normal [facility] Comment on above: Result Comment: 5-50 0.2-1 WEEK 50-500 1-2 WEEKS 100-5,000 2-3 WEEKS 500-10,000 3-4 WEEKS 1,000-50,000 4-5 WEEKS 10,000-100,000 5-6 WEEKS 15,000-200,000 6-8 WEEKS 10,000-100,000 2-3 MONTHS Performed By: #### P REGQNT #### [facility] [address] [place] [address] Dr. Ja Cohen ECHOCARDIO M/2D COMPLETEon 0 08-11-2021 ECHOCARDIO M/2D COMPLETE Patient: ALESHA KENNEY Exam Date: 08/11/2021 : 1985 Gender:F Ordering : SHAIKH Addy GARLAND . Admission #: [id number] Family : Order #: [id number] CLICK HERE TO VIEW EXAM ECHOCARDIOGRAM REPORT [...] Area(A4C): 23.40 cm2 Left Atrium Systolic Volume(A2C): 42481 mm3 Left Atrium Systolic Volume(A4C): 41419 mm3 Mitral Valve MV E to A Ratio: 1.90 MV Mean Gradient: 1 mm[Hg] Deceleration [place]: 6410 mm/s2 Mitral Valve A-Wave Peak Velocity: [...] 08/11/2021 at 12:[address] [facility] AFB Culture with Stainon AFB Stain SEE NOTE Normal [facility] Comment on above: Result Comment: Nega tive for Acid Fast Bacteria.Less than 5 mL of specimen received.A minimum of 5 mL of sputum or fluid is recommendedfor recovery of acid fast bacilli (AFB).Volumes less than 5 mL are suboptimal and maycompromise recovery of AFB from culture. Final SEE NOTE Normal [facility] Comment on above: Result Comment: Cult ure negative for acid fast bacilliPerformed by [facility],[address] [place] [address] [email or web address], Artur Agustin MD - Lab. Director Preliminary SEE NOTE [facility] Comment on above: Result Comment: Spec imen received and in progress.Positive culture results are called as soon as detected.Final report to follow in seven to eight weeksPerformed by [facility],[address] [address] [email or web address], Artur Agustin MD - Lab. Director AFB Stain SEE NOTE [facility] Comment on above: Order Comment: CALL [place] LC1W tel. [phone], called hgb to ramila oseguera rn on 1w [facility] called to and read back by ramila oseguera on 1w, 12/27/201706:44, by RAYSHAWN Result Comment: Nega tive for Acid Fast Bacteria. Order Comment: Bronc h wash RULBronch Wash RUL Final SEE NOTE Normal [facility] Comment on above: Order Comment: [facility] h wash RULBronch Wash RUL Result Comment: Cult ure negative for acid fast bacilliPerformed by [facility],[address], [facility] [place] [address] [email or web address], Artur Agustin MD - Lab. Director Order Comment: CALL [facility] LC1W tel. [phone], called hgb to ramila oseguera rn on 1w by [facility]ematology results called to and read back by ramila oseguera on 1w, 12/27/201706:44, by [facility] Basic Metabolic Panelon 01-15 Anion gap 3 molar conc 10 mmol/L Normal 7-13 [facility] Calcium mass conc 8.7 mg/dL Normal 8.6-10.2 [facility] Chloride molar conc 105 mmol/L Normal 98-107 [facility] CO2 molar conc 26 mmol/L Normal 22-29 [facility] Creatinine mass conc 0.60 mg/dL Normal 0.50-0.90 [facility] GFR/1.73 sq M predicted among blacks MDRD vol rate/area (S/P/Bld) mL/min/{1.73_m2} Normal >60 [facility] Comment on above: Result Comment: >60 mL/min/1.73m2 EGFR, calc. for ages 18 and older using theMDRD formula (not corrected for weight), is valid for stablerenal function. GFR/1.73 sq M.predicted MDRD vol rate/area mL/min/{1.73_m2} Normal >60 [facility] Comment on above: Result Comment: >60 mL/min/1.73m2 EGFR, calc. for ages 18 and older using theMDRD formula (not corrected for weight), is valid for stablerenal function. Glucose mass conc 101 mg/dL Normal 74-109 [facility] Potassium molar conc 4.5 mmol/L Normal 3.5-5.1 [facility] Sodium molar conc 141 mmol/L Normal 132-144 [facility] Urea nitrogen mass conc 15 mg/dL Normal 6-20 [facility] CBC With Platelet No Differe ntialon 02-01-2018 Erythrocyte distribution width Auto Ratio (RBC) 23.7 % Critically high 11.5-14.5 [facility] Hematocrit Auto Volume Fraction (Bld) 28.0 % Low 37.0-47.0 [facility] Hemoglobin mass conc (Bld) 9.3 g/dL Low 12.0-16.0 [facility] MCH Auto Entitic mass (RBC) 29.1 pg Normal 27.0-31.3 [facility] MCHC Auto mass conc (RBC) 33.1 % Normal 33.0-37.0 [facility] MCV Auto Entitic volume (RBC) 87.9 fL Normal 82.0-100.0 [facility] Platelets Auto #/vol (Bld) 229 10*3/uL Normal 130-400 [facility] RBC Auto #/vol (Bld) 3.19 10*6/uL Low 4.20-5.40 [facility] WBC Auto #/vol (Bld) 2.7 10*3/uL Low 4.8-10.8 [facility] Culture, Funguson 01-29-2018 Final SEE NOTE Normal [facility] Comment on above: Order Comment: CALL [facility] LC1W tel. [phone], called hgb to ramila oseguera rn on 1w by scematology results called to and read back by ramila oseguera on 1w, 12/27/201706:44, by RAYSHAWN Result Comment: Cult ure negative for FungiPerformed by [facility],[address] [place] [id number] [email or web address], Artur Agustin MD - Lab. Director Basic Metabolic Panelon 01-15 Anion gap 3 molar conc 9 mmol/L Normal 7-13 [facility] Calcium mass conc 9.5 mg/dL Normal 8.6-10.2 [facility] Chloride molar conc 106 mmol/L Normal 98-107 [facility] CO2 molar conc 27 mmol/L Normal 22-29 [facility] Creatinine mass conc 0.71 mg/dL Normal 0.50-0.90 [facility] GFR/1.73 sq M predicted among blacks MDRD vol rate/area (S/P/Bld) mL/min/{1.73_m2} Normal >60 [facility] Comment on above: Result Comment: >60 mL/min/1.73m2 EGFR, calc. for ages 18 and older using theMDRD formula (not corrected for weight), is valid for stablerenal function. GFR/1.73 sq M.predicted MDRD vol rate/area mL/min/{1.73_m2} Normal >60 [facility] Comment on above: Result Comment: >60 mL/min/1.73m2 EGFR, calc. for ages 18 and older using theMDRD formula (not corrected for weight), is valid for stablerenal function. Glucose mass conc 93 mg/dL Normal 74-109 [facility] Potassium molar conc 4.7 mmol/L Normal 3.5-5.1 [facility] Sodium molar conc 142 mmol/L Normal 132-144 [facility] Urea nitrogen mass conc 14 mg/dL Normal 6-20 [facility] CBC With Platelet and Differ entialon 01-25-2018 Anisocytosis Auto Ql (Bld) PRESENT Normal [facility] Erythrocyte distribution width Auto Ratio (RBC) 28.7 % Critically high 11.5-14.5 [facility] Hematocrit Auto Volume Fraction (Bld) 24.9 % Low 37.0-47.0 [facility] Hemoglobin mass conc (Bld) 8.3 g/dL Low 12.0-16.0 [facility] MCH Auto Entitic mass (RBC) 28.2 pg Normal 27.0-31.3 [facility] MCHC Auto mass conc (RBC) 33.1 % Normal 33.0-37.0 [facility] MCV Auto Entitic volume (RBC) 85.0 fL Normal 82.0-100.0 [facility] Platelets Auto #/vol (Bld) 225 10*3/uL Normal 130-400 [facility] RBC Auto #/vol (Bld) 2.93 10*6/uL Low 4.20-5.40 [facility] Basophils Auto #/vol (Bld) 0.0 10*3/uL Normal 0.0-0.2 [facility] Basophils/100 WBC Auto (Bld) 1.0 % Normal [facility] Eosinophils Auto #/vol (Bld) 0.3 10*3/uL Normal 0.0-0.7 [facility] Eosinophils/100 WBC Auto (Bld) 5.4 % Normal [facility] Lymphocytes Auto #/vol (Bld) 1.7 10*3/uL Normal 1.0-4.8 [facility] Lymphocytes/100 WBC Auto (Bld) 37.1 % Normal [facility] Monocytes Auto #/vol (Bld) 0.2 10*3/uL Normal 0.2-0.8 [facility] Monocytes/100 WBC Auto (Bld) 5.1 % Normal [facility] Neutrophils Auto #/vol (Bld) 2.4 10*3/uL Normal 1.4-6.5 [facility] Neutrophils/100 WBC Auto (Bld) 51.4 % Normal [facility] WBC Auto #/vol (Bld) 4.7 10*3/uL Low 4.8-10.8 [facility] Culture, Funguson 01-24-2018 Final SEE NOTE Normal [facility] Comment on above: Order Comment: Bronc h Wash LLLBronch Wash LLL Result Comment: Cult ure POSITIVE forYeast not Cryptococcus speciesPerformed by [facility],[address] [place] [address] [email or web address], Artur Agustin MD - Lab. Director Preliminary SEE NOTE Normal [facility] Comment on above: Order Comment: Bronc h Wash LLLBronch Wash LLL Result Comment: Cult ure POSITIVE forYeast not Cryptococcus speciesPerformed by [facility],[address] [place] [address] [email or web address], Artur Agustin MD - Lab. Director Basic Metabolic Panelon - Anion gap 3 molar conc 10 mmol/L Normal 7-13 [facility] Calcium mass conc 9.4 mg/dL Normal 8.6-10.2 [facility] Chloride molar conc 102 mmol/L Normal 98-107 [facility] CO2 molar conc 27 mmol/L Normal 22-29 [facility] Creatinine mass conc 0.70 mg/dL Normal 0.50-0.90 [facility] GFR/1.73 sq M predicted among blacks MDRD vol rate/area (S/P/Bld) mL/min/{1.73_m2} Normal >60 [facility] Comment on above: Result Comment: >60 mL/min/1.73m2 EGFR, calc. for ages 18 and older using theMDRD formula (not corrected for weight), is valid for stablerenal function. GFR/1.73 sq M.predicted MDRD vol rate/area mL/min/{1.73_m2} Normal >60 [facility] Comment on above: Result Comment: >60 mL/min/1.73m2 EGFR, calc. for ages 18 and older using theMDRD formula (not corrected for weight), is valid for stablerenal function. Glucose mass conc 73 mg/dL Low 74-109 [facility] Potassium molar conc 4.6 mmol/L Normal 3.5-5.1 [facility] Sodium molar conc 139 mmol/L Normal 132-144 [facility] Urea nitrogen mass conc 15 mg/dL Normal 6-20 [facility] CBC With Platelet No Differe ntialon 01-21-2018 Erythrocyte distribution width Auto Ratio (RBC) 24.9 % Critically high 11.5-14.5 [facility] Hematocrit Auto Volume Fraction (Bld) 24.4 % Low 37.0-47.0 [facility] Hemoglobin mass conc (Bld) 8.1 g/dL Low 12.0-16.0 [facility] MCH Auto Entitic mass (RBC) 28.3 pg Normal 27.0-31.3 [facility] MCHC Auto mass conc (RBC) 33.3 % Normal 33.0-37.0 [facility] MCV Auto Entitic volume (RBC) 85.0 fL Normal 82.0-100.0 [facility] Platelets Auto #/vol (Bld) 184 10*3/uL Normal 130-400 [facility] RBC Auto #/vol (Bld) 2.88 10*6/uL Low 4.20-5.40 [facility] WBC Auto #/vol (Bld) 4.6 10*3/uL Low 4.8-10.8 [facility] Basic Metabolic Panelon 11-2 Anion gap 3 molar conc 10 mmol/L Normal 7-13 [facility] Calcium mass conc 9.3 mg/dL Normal 8.6-10.2 [facility] Chloride molar conc 106 mmol/L Normal 98-107 [facility] CO2 molar conc 26 mmol/L Normal 22-29 [facility] Creatinine mass conc 0.93 mg/dL Critically high 0.50-0.90 [facility] GFR/1.73 sq M predicted among blacks MDRD vol rate/area (S/P/Bld) mL/min/{1.73_m2} Normal >60 [facility] Comment on above: Result Comment: >60 mL/min/1.73m2 EGFR, calc. for ages 18 and older using theMDRD formula (not corrected for weight), is valid for stablerenal function. GFR/1.73 sq M.predicted MDRD vol rate/area mL/min/{1.73_m2} Normal >60 [facility] Comment on above: Result Comment: >60 mL/min/1.73m2 EGFR, calc. for ages 18 and older using theMDRD formula (not corrected for weight), is valid for stablerenal function. Glucose mass conc 103 mg/dL Normal 74-109 [facility] Potassium molar conc 4.5 mmol/L Normal 3.5-5.1 [facility] Sodium molar conc 142 mmol/L Normal 132-144 [facility] Urea nitrogen mass conc 17 mg/dL Normal 6-20 [facility] CBC With Platelet and Differ entialon 01-11-2018 Anisocytosis Auto Ql (Bld) PRESENT Normal [facility] Erythrocyte distribution width Auto Ratio (RBC) 23.8 % Critically high 11.5-14.5 [facility] Hematocrit Auto Volume Fraction (Bld) 25.6 % Low 37.0-47.0 [facility] Hemoglobin mass conc (Bld) 8.4 g/dL Low 12.0-16.0 [facility] Hypochromia PRESENT Normal [facility] MCH Auto Entitic mass (RBC) 26.5 pg Low 27.0-31.3 [facility] MCHC Auto mass conc (RBC) 32.8 % Low 33.0-37.0 [facility] MCV Auto Entitic volume (RBC) 80.9 fL Low 82.0-100.0 [facility] Platelets Auto #/vol (Bld) 259 10*3/uL Normal 130-400 [facility] RBC Auto #/vol (Bld) 3.16 10*6/uL Low 4.20-5.40 [facility] Basophils Auto #/vol (Bld) 0.1 10*3/uL Normal 0.0-0.2 [facility] Basophils/100 WBC Auto (Bld) 1.5 % Normal [facility] Eosinophils Auto #/vol (Bld) 0.2 10*3/uL Normal 0.0-0.7 [facility] Eosinophils/100 WBC Auto (Bld) 4.2 % Normal [facility] Lymphocytes Auto #/vol (Bld) 1.9 10*3/uL Normal 1.0-4.8 [facility] Lymphocytes/100 WBC Auto (Bld) 40.0 % Normal [facility] Monocytes Auto #/vol (Bld) 0.1 10*3/uL Low 0.2-0.8 [facility] Monocytes/100 WBC Auto (Bld) 3.1 % Normal [facility] Neutrophils Auto #/vol (Bld) 2.4 10*3/uL Normal 1.4-6.5 [facility] Neutrophils/100 WBC Auto (Bld) 51.2 % Normal [facility] WBC Auto #/vol (Bld) 4.6 10*3/uL Low 4.8-10.8 [facility] Culture, Funguson 01-08-2018 Preliminary SEE NOTE Normal [facility] Comment on above: Order Comment: CALL [place] LC1W tel. [phone], called hgb to ramila oseguera rn on 1w by scbHematology results called to and read back by ramila oseguera on 1w, 12/27/201706:44, by RAYSHAWN Result Comment: No Nathan starks, culture still in progress.Performed by [facility],[address] [place] [id number] sso.[facility], Artur Agustin MD - Lab. Director CBC With Platelet and Differ entialon 01-04-2018 Anisocytosis Auto Ql (Bld) 2+ Normal [facility] Bands 2 % Low 5-11 [facility] Basophils Auto #/vol (Bld) 0.1 10*3/uL Normal 0.0-0.2 [facility] Basophils/100 WBC Auto (Bld) 1.0 % Normal [facility] Eosinophils Auto #/vol (Bld) 0.2 10*3/uL Normal 0.0-0.7 [facility] Eosinophils/100 WBC Auto (Bld) 2.0 % Normal [facility] Lymphocytes Auto #/vol (Bld) 0.7 10*3/uL Low 1.0-4.8 [facility] Lymphocytes/100 WBC Auto (Bld) 9.0 % Normal [facility] Macrocytic 1+ Normal [facility] Microcytic 1+ Normal [facility] Monocytes Auto #/vol (Bld) 0.0 10*3/uL Low 0.2-0.8 [facility] Monocytes/100 WBC Auto (Bld) 4.4 % Normal [facility] Neutrophils Auto #/vol (Bld) 6.8 10*3/uL Critically high 1.4-6.5 [facility] Neutrophils/100 WBC Auto (Bld) 86.0 % Normal [facility] Ovalocytes 1+ Normal [facility] Platelet Slide Review Normal Normal [facility] Poikilocytosis 2+ Normal [facility] Tear Drop Cells 1+ Normal [facility] Erythrocyte distribution width Auto Ratio (RBC) 20.4 % Critically high 11.5-14.5 [facility] Hematocrit Auto Volume Fraction (Bld) 22.7 % Low 37.0-47.0 [facility] Hemoglobin mass conc (Bld) 7.4 g/dL Low 12.0-16.0 [facility] MCH Auto Entitic mass (RBC) 26.3 pg Low 27.0-31.3 [facility] MCHC Auto mass conc (RBC) 32.5 % Low 33.0-37.0 [facility] MCV Auto Entitic volume (RBC) 80.8 fL Low 82.0-100.0 [facility] Platelets Auto #/vol (Bld) 234 10*3/uL Normal 130-400 [facility] RBC Auto #/vol (Bld) 2.81 10*6/uL Low 4.20-5.40 [facility] WBC Auto #/vol (Bld) 7.7 10*3/uL Normal 4.8-10.8 [facility] Respiratory Virus Panel by P Will 01-04-2018 Adenovirus B/E - PCR Not Detected Normal [facility] Adenovirus C - PCR Not Detected Normal [facility] Comment on above: Result Comment: The specimen submitted for testing did not meet ARUPsubmission guidelines. Testing was performed on a specimenthat did not meet validated type requirements.Performance characteristics of this assay may be affected.Interpret results with caution. Please refer to the [facility] Test Directory for information on specimenacceptability:[email or web address].Test developed and characteristics determined by [facility]. See Compliance Statement B: [facility]/CS.Performed by [facility],[address] [place] [id number] qbq.[facility], Artur Agustin MD - Lab. Director Human Metapneumovirus - PCR Not Detected Normal [facility] Human Rhinovirus - PCR Not Detected Normal [facility] Influenza A - PCR Not Detected Normal [facility] Influenza A 2009 H1N1 - PCR Not Detected Normal [facility] Influenza A H1 - PCR Not Detected Normal [facility] Influenza A H3 - PCR Not Detected Normal [facility] Influenza B - PCR Not Detected Normal [facility] Parainfluenza Virus 1 - PCR Not Detected Normal [facility] Parainfluenza Virus 2 - PCR Not Detected Normal [facility] Parainfluenza Virus 3 - PCR Not Detected Normal [facility] Respiratory Syncytial Virus A - PCR Not Detected Normal [facility] Respiratory Syncytial Virus B - PCR Not Detected Normal [facility] RVP Source Bronch Wash RUL Normal [facility] CBC With Platelet and Differ entialon 01-02-2018 Basophils Auto #/vol (Bld) 0.1 10*3/uL Normal 0.0-0.2 [facility] Basophils/100 WBC Auto (Bld) 0.8 % Normal [facility] Eosinophils Auto #/vol (Bld) 0.1 10*3/uL Normal 0.0-0.7 [facility] Eosinophils/100 WBC Auto (Bld) 1.6 % Normal [facility] Erythrocyte distribution width Auto Ratio (RBC) 19.9 % Critically high .5-14.5 [facility] Hematocrit Auto Volume Fraction (Bld) 22.0 % Low 37.0-47.0 [facility] Hemoglobin mass conc (Bld) 7.3 g/dL Low 12.0-16.0 [facility] Lymphocytes Auto #/vol (Bld) 1.2 10*3/uL Normal 1.0-4.8 [facility] Lymphocytes/100 WBC Auto (Bld) 19.0 % Normal [facility] MCH Auto Entitic mass (RBC) 26.8 pg Low 27.0-31.3 [facility] MCHC Auto mass conc (RBC) 33.4 % Normal 33.0-37.0 [facility] MCV Auto Entitic volume (RBC) 80.4 fL Low 82.0-100.0 [facility] Monocytes Auto #/vol (Bld) 0.3 10*3/uL Normal 0.2-0.8 [facility] Monocytes/100 WBC Auto (Bld) 4.9 % Normal [facility] Neutrophils Auto #/vol (Bld) 4.8 10*3/uL Normal 1.4-6.5 [facility] Neutrophils/100 WBC Auto (Bld) 73.7 % Normal [facility] Platelets Auto #/vol (Bld) 248 10*3/uL Normal 130-400 [facility] RBC Auto #/vol (Bld) 2.74 10*6/uL Low 4.20-5.40 [facility] WBC Auto #/vol (Bld) 6.5 10*3/uL Normal 4.8-10.8 [facility] Rejection Notificationon Rejected Test FOB Normal [facility] Rejected Test FOB Normal [facility] AFB Culture with Stainon Preliminary SEE NOTE Normal [facility] Comment on above: Order Comment: Bronc h wash RULBronch Wash RUL Result Comment: Spec imen received and in progress.Positive culture results are called as soon as detected.Final report to follow in seven to eight weeksPerformed by [facility],[address] [facility], [facility] [place] [address] pgu.GMEX, Artur Agustin MD - Lab. Director Preliminary SEE NOTE Normal [facility] Comment on above: Order Comment: CALL [facility] 1W tel. [phone], called hgb to ramila oseguera rn on 1w by scbHematology results called to and read back by ramila june on 1w, 12/27/201706:44, by BONSA Result Comment: Spec imen received and in progress.Positive culture results are called as soon as detected.Final report to follow in seven to eight weeksPerformed by [facility],[address] [place] [address], [facility] [place] [address] khb.GMEX, Artur Agustin MD - Lab. Director CBC With Platelet and Differ entialon 01-01-2018 Basophils Auto #/vol (Bld) 0.0 10*3/uL Normal 0.0-0.2 [facility] Comment on above: Order Comment: CALL [place] 1 tel. [phone], called hgb to ramila oseguera rn on 1w by scbHematology results called to and read back by ramila june on 1w, 12/27/201706:44, by BONSA Basophils/100 WBC Auto (Bld) 0.8 % Normal [facility] Comment on above: Order Comment: CALL [facility] 1W tel. [phone], called hgb to ramila oseguera rn on 1w by scbHematology results called to and read back by ramila june on 1w, 12/27/201706:44, by BONSA Eosinophils Auto #/vol (Bld) 0.1 10*3/uL Normal 0.0-0.7 [facility] Comment on above: Order Comment: CALL [facility] LC1W tel. [phone], called hgb to ramila oseguera rn on 1w by scbHematology results called to and read back by ramila june on 1w, 12/27/201706:44, by BONSA Eosinophils/100 WBC Auto (Bld) 1.8 % Normal [facility] Comment on above: Order Comment: CALL [facility] 1W tel. [phone], called hgb to ramila ana rosa rn on 1w by scbHematology results called to and read back by ramila oseguera on 1w, :44, by BONSA Erythrocyte distribution width Auto Ratio (RBC) 18.6 % Critically high 11.5-14.5 [facility] Comment on above: Order Comment: CALL [address] tel. [phone], called hgb to ramila oseguera rn on 1w by scbHematology results called to and read back by ramila oseguera on 1w, :44, by BONSA Hematocrit Auto Volume Fraction (Bld) 20.1 % Critically low 37.0-47.0 [facility] Comment on above: Order Comment: CALL [address] tel. [phone], called hgb to ramila oseguera rn on 1w by scbHematology results called to and read back by ramila oseguera on 1w, :44, by BONSA Hemoglobin mass conc (Bld) 6.7 g/dL Critically low 12.0-16.0 [facility] Comment on above: Order Comment: CALL [address] tel. [phone], called hgb to ramila oseguera rn on 1w by scbHematology results called to and read back by ramila oseguera on 1w, :44, by BONSA Result Comment: veri fied by repeat Lymphocytes Auto #/vol (Bld) 0.9 10*3/uL Low 1.0-4.8 [facility] Comment on above: Order Comment: CALL [address] tel. [phone], called hgb to ramila oseguera rn on 1w by scbHematology results called to and read back by ramila oseguera on 1w, :44, by BON Lymphocytes/100 WBC Auto (Bld) 18.3 % Normal [facility] Comment on above: Order Comment: CALL [address] tel. [phone], called hgb to ramila oseguera rn on 1w by scbHematology results called to and read back by ramila oseguera on 1w, :44, by BONSA MCH Auto Entitic mass (RBC) 26.5 pg Low 27.0-31.3 [facility] Comment on above: Order Comment: CALL [address] tel. [phone], called hgb to ramila oseguera rn on 1w by scbHematology results called to and read back by ramila june on 1w, :44, by BONSA [facility] Auto mass conc (RBC) 33.1 % Normal 33.0-37.0 [facility] Comment on above: Order Comment: CALL [address] tel. [phone], called hgb to ramila june rn on 1w by scbHematology results called to and read back by ramila june on 1w, :44, by BONSA MCV Auto Entitic volume (RBC) 80.0 fL Low 82.0-100.0 [facility] Comment on above: Order Comment: CALL [address] tel. [phone], called hgb to ramila june rn on 1w by scbHematology results called to and read back by ramila june on 1w, :44, by BONSA Monocytes Auto #/vol (Bld) 0.3 10*3/uL Normal 0.2-0.8 [facility] Comment on above: Order Comment: CALL [address] tel. [phone], called hgb to ramila june rn on 1w by scbHematology results called to and read back by ramila june on 1w, :44, by BONSA Monocytes/100 WBC Auto (Bld) 5.4 % Normal [facility] Comment on above: Order Comment: CALL [address] tel. [phone], called hgb to ramila june rn on 1w by scbHematology results called to and read back by ramila june on 1w, :44, by BONSA Neutrophils Auto #/vol (Bld) 3.8 10*3/uL Normal 1.4-6.5 [facility] Comment on above: Order Comment: CALL [address] tel. [phone], called hgb to ramila oseguera rn on 1w by scbHematology results called to and read back by ramila june on 1w, :44, by BONSA Neutrophils/100 WBC Auto (Bld) 73.7 % Normal [facility] Comment on above: Order Comment: CALL [place] 1 tel. [phone], called hgb to ramila oseguera rn on 1w by scbHematology results called to and read back by ramila june on 1w, 12/27/201706:44, by BONSA Platelets Auto #/vol (Bld) 174 10*3/uL Normal 130-400 [facility] Comment on above: Order Comment: CALL [place] 1 tel. [phone], called hgb to ramila ana rosa rn on 1w by scbHematology results called to and read back by ramila june on 1w, 12/27/201706:44, by BONSA RBC Auto #/vol (Bld) 2.51 10*6/uL Low 4.20-5.40 [facility] Comment on above: Order Comment: CALL [place] 1 tel. [phone], called hgb to ramila ana rosa rn on 1w by scbHematology results called to and read back by ramila oseguera on 1w, 12/27/201706:44, by BONSA WBC Auto #/vol (Bld) 5.1 10*3/uL Normal 4.8-10.8 [facility] Comment on above: Order Comment: CALL [place] 1 tel. [phone], called hgb to ramila oseguera rn on 1w by scbHematology results called to and read back by ramila oseguera on 1w, 12/27/201706:44, by BONSA Bacterial susceptibility fox el by Elvia 12-31-2017 Bacterial susceptibility panel by Minimum inhibitory concentration (ISRA) ORDERED BY: LESLIE PENALOZA: Blood COLLECTED: 12/31/17 00:40ANTIBIOTICS AT RAD[facility].: RECEIVED : 12/31/17 01:26CALL [facility] LC4W tel. [phone],Blood culture results called to and read back by Henri Christine, 01/01/2018 13:30, by Heavenly Geiger 2 FINAL 01/03/18 07:41 1 out of 2 blood cultures POSITIVE for Serratia marcescens S. marces ANTIBIOTICS ISRA Interp A moxicillin/Clavulanate >=32 R Cefepime <=1 S Ceftriaxone <=1 S Ciprofloxacin <=0.25 S Gentamicin <=1 S Trimethoprim/Sulfamethoxaz ole <=20 S S=SUSCEPTIBLE I=INTERMEDIATE R=RESISTANT Normal [facility] CBC With Platelet and Differ entialon 12-31-2017 Basophils Auto #/vol (Bld) 0.1 10*3/uL Normal 0.0-0.2 [facility] Comment on above: Order Comment: CALL [facility] LC1W tel. [phone], called hgb to ramila oseguera rn on 1w [facility] called to and read back by ramila oseguera on 1w, 12/27/201706:44, by RAYSHAWN Basophils/100 WBC Auto (Bld) 0.7 % Normal [facility] Comment on above: Order Comment: CALL [facility] LC1W tel. [phone], called hgb to ramila june rn on 1w by scbHematology results called to and read back by ramila june on 1w, :44, by BON Eosinophils Auto #/vol (Bld) 0.0 10*3/uL Normal 0.0-0.7 [facility] Comment on above: Order Comment: CALL [facility] tel. [phone], called hgb to ramila june rn on 1w by scbHematology results called to and read back by ramila june on 1w, :44, by RAYSHAWN Eosinophils/100 WBC Auto (Bld) 0.4 % Normal [facility] Comment on above: Order Comment: CALL [facility] tel. [phone], called hgb to ramila june rn on 1w by scbHematology results called to and read back by ramila june on 1w, :44, by RAYSHAWN Erythrocyte distribution width Auto Ratio (RBC) 19.0 % Critically high 11.5-14.5 [facility] Comment on above: Order Comment: CALL [address] tel. [phone], called hgb to ramila june rn on 1w by scbHematology results called to and read back by ramila june on 1w, :44, by RAYSHAWN Hematocrit Auto Volume Fraction (Bld) 19.7 % Critically low 37.0-47.0 [facility] Comment on above: Order Comment: CALL [address] tel. [phone], called hgb to ramila june rn on 1w by scbHematology results called to and read back by ramila june on 1w, :44, by RAYSHAWN Hemoglobin mass conc (Bld) 6.6 g/dL Critically low 12.0-16.0 [facility] Comment on above: Order Comment: CALL [facility] tel. [phone], called hgb to ramila june rn on 1w by scbHematology results called to and read back by ramila june on 1w, :44, by BONSA Result Comment: veri fied by repeat Lymphocytes Auto #/vol (Bld) 0.8 10*3/uL Low 1.0-4.8 [facility] Comment on above: Order Comment: CALL [facility] tel. [phone], called hgb to ramila oseguera rn on 1w by scbHematology results called to and read back by ramila june on 1w, 12/27/201706:44, by RAYSHAWN Lymphocytes/100 WBC Auto (Bld) 9.0 % Normal [facility] Comment on above: Order Comment: CALL [facility] tel. [phone], called hgb to ramila june rn on 1w by scbHematology results called to and read back by ramila june on 1w, :44, by BON MCH Auto Entitic mass (RBC) 26.7 pg Low 27.0-31.3 [facility] Comment on above: Order Comment: CALL [address] tel. [phone], called hgb to ramila june rn on 1w by scbHematology results called to and read back by ramila june on 1w, 12/27/201706:44, by RAYSHAWN MCHC Auto mass conc (RBC) 33.3 % Normal 33.0-37.0 [facility] Comment on above: Order Comment: CALL [address] tel. [phone], called hgb to ramila june rn on 1w by scbHematology results called to and read back by ramila june on 1w, :44, by BON MCV Auto Entitic volume (RBC) 80.1 fL Low 82.0-100.0 [facility] Comment on above: Order Comment: CALL [address] tel. [phone], called hgb to ramila june rn on 1w by scbHematology results called to and read back by ramila june on 1w, :44, by BONSA Monocytes Auto #/vol (Bld) 0.5 10*3/uL Normal 0.2-0.8 [facility] Comment on above: Order Comment: CALL [address] tel. [phone], called hgb to ramila june rn on 1w by scbHematology results called to and read back by ramila oseguera on 1w, :44, by BONSA Monocytes/100 WBC Auto (Bld) 5.4 % Normal [facility] Comment on above: Order Comment: CALL [facility] tel. [phone], called hgb to ramila oseguera rn on 1w by scbHematology results called to and read back by ramila june on 1w, :44, by BONSA Neutrophils Auto #/vol (Bld) 7.1 10*3/uL Critically high 1.4-6.5 [facility] Comment on above: Order Comment: CALL [facility] tel. [phone], called hgb to ramila oseguera rn on 1w by scbHematology results called to and read back by ramila june on 1w, :44, by BONSA Neutrophils/100 WBC Auto (Bld) 84.5 % Normal [facility] Comment on above: Order Comment: CALL [address] tel. [phone], called hgb to ramila oseguera rn on 1w by scbHematology results called to and read back by ramila june on 1w, :44, by BONSA Platelets Auto #/vol (Bld) 195 10*3/uL Normal 130-400 [facility] Comment on above: Order Comment: CALL [address] tel. [phone], called hgb to ramila oseguera rn on 1w by scbHematology results called to and read back by ramila june on 1w, :44, by BONSA RBC Auto #/vol (Bld) 2.46 10*6/uL Low 4.20-5.40 [facility] Comment on above: Order Comment: CALL [facility] tel. [phone], called hgb to ramila oseguera rn on 1w by scbHematology results called to and read back by ramila june on 1w, :44, by BONSA WBC Auto #/vol (Bld) 8.4 10*3/uL Normal 4.8-10.8 [facility] Comment on above: Order Comment: [facility] [phone], called hgb to ramila oseguera rn on 1w by scbHematology results called to and read back by ramila oseguera on 1w, 12/27/201706:44, by RAYSHAWN Culture, Blood 2on 8 Culture, Blood 2 OR DERED BY: LESLIE PENALOZA: Blood COLLECTED: 12/31/17 00:40ANTIBIOTICS AT [facility].: RECEIVED : 12/31/17 01:26CALL [facility] LC4W tel. [phone],Blood culture results called to and read back by Henri Christine, 01/01/2018 13:30, by MICRECulture, Blood 2 INTERIM 01/02/18 08:16 Gram stain aerobic bottle Gram negative rods 1 out of 2 blood cultures Further results to follow POSITIVE for Gram negative arminda ID and sensitivity to follow Normal [facility] IR FLUORO GUIDED CVA DEVICE PLACEMENTon 12-31-2017 [...] sheath was placed over the guidewire. A 4-Ghanaian 44 cm single lumen PICC was advanced [...] by:FRANCO Santamariaigned by:Gordon Hinton MD01/10/18inal result Normal [facility] IR PICC WO SQ PORT/PUMP > [...] sheath was placed over the guidewire. A 4-Ghanaian 44 cm single lumen PICC was advanced [...] by:FRANCO Santamariaigned by:Gordon Hinton MD01/10/18inal result Normal [facility] IR ULTRASOUND GUIDANCE VASCU LAR ACCESSon 12-31-2017 [...] sheath was placed over the guidewire. A 4-Ghanaian 44 cm single lumen PICC was advanced [...] by:FRANCO Santamariaigned by:Gordon Hinton MD01/10/18inal result Normal [facility] Basic Metabolic Panel Reflex Mgon 12-30-2017 Calcium mass conc 8.4 mg/dL Low 8.6-10.2 [facility] Chloride molar conc 107 mmol/L Normal 98-107 [facility] CO2 molar conc 24 mmol/L Normal 22-29 [facility] Creatinine mass conc 0.73 mg/dL Normal 0.50-0.90 [facility] GFR/1.73 sq M predicted among blacks MDRD vol rate/area (S/P/Bld) mL/min/{1.73_m2} Normal >60 [facility] Comment on above: Result Comment: >60 mL/min/1.73m2 EGFR, calc. for ages 18 and older using theMDRD formula (not corrected for weight), is valid for stablerenal function. GFR/1.73 sq M.predicted MDRD vol rate/area mL/min/{1.73_m2} Normal >60 [facility] Comment on above: Result Comment: >60 mL/min/1.73m2 EGFR, calc. for ages 18 and older using theMDRD formula (not corrected for weight), is valid for stablerenal function. Glucose mass conc 82 mg/dL Normal 74-109 [facility] Potassium reflex Mg 4.8 mEq/L Normal 3.5-5.1 [facility] Sodium molar conc 140 mmol/L Normal 132-144 [facility] Urea nitrogen mass conc 8 mg/dL Normal 6-20 [facility] Anion gap 3 molar conc 9 mmol/L Normal 7-13 [facility] Body Fluid Cell Counton 12-16 Atypical Lymphs 3 % Normal [facility] Eosinophils/100 WBC Auto (Bld) 1 % Normal [facility] Lymphocytes/100 WBC Auto (Bld) 8 % Normal [facility] Mesothelials 50 % Normal [facility] Monocytes/100 WBC Auto (Bld) 20 % Normal [facility] Neutrophils/100 WBC Auto (Bld) 18 % Normal [facility] CBC With Platelet and Differ entialon 12-30-2017 Basophils Auto #/vol (Bld) 0.0 10*3/uL Normal 0.0-0.2 [facility] Comment on above: Order Comment: CALL [facility] LC4W tel. [phone],h and h results called to and read back by es perdomo on 4w / scb,12/30/2017 09:51, by BONSA Basophils/100 WBC Auto (Bld) 1.0 % Normal [facility] Comment on above: Order Comment: CALL [facility] LC4W tel. [phone],h and h results called to and read back by es perdomo on 4w / scb,12/30/2017 09:51, by BONSA Eosinophils Auto #/vol (Bld) 0.1 10*3/uL Normal 0.0-0.7 [facility] Comment on above: Order Comment: CALL [facility] LC4W tel. [phone],h and h results called to and read back by es perdomo on 4w / scb,12/30/2017 09:51, by BONSA Eosinophils/100 WBC Auto (Bld) 1.8 % Normal [facility] Comment on above: Order Comment: CALL [facility] LC4W tel. [phone],h and h results called to and read back by es perdomo on 4w / scb,12/30/2017 09:51, by BONSA Erythrocyte distribution width Auto Ratio (RBC) 18.8 % Critically high 11.5-14.5 [facility] Comment on above: Order Comment: CALL [facility] LC4W tel. [phone],h and h results called to and read back by es perdomo on 4w / scb,12/30/2017 09:51, by BONSA Hematocrit Auto Volume Fraction (Bld) 20.8 % Critically low 37.0-47.0 [facility] Comment on above: Order Comment: CALL [facility] LC4W tel. [phone],h and h results called to and read back by es perdomo on 4w / scb,12/30/2017 09:51, by BONSA Hemoglobin mass conc (Bld) 7.0 g/dL Critically low 12.0-16.0 [facility] Comment on above: Order Comment: CALL [facility] 4W tel. [phone],h and h results called to and read back by es perdomo on 4w / scb,12/30/2017 09:51, by BONSA Lymphocytes Auto #/vol (Bld) 1.0 10*3/uL Normal 1.0-4.8 [facility] Comment on above: Order Comment: CALL [facility] LC4W tel. [phone],h and h results called to and read back by es perdomo on 4w / scb,12/30/2017 09:51, by BONSA Lymphocytes/100 WBC Auto (Bld) 20.2 % Normal [facility] [facility] Comment on above: Order Comment: CALL Murdock LC4W tel. [phone],h and h results called to and read back by es perdomo on 4w / scb,12/30/2017 09:51, by BONSA MCH Auto Entitic mass (RBC) 26.8 pg Low 27.0-31.3 [facility] Comment on above: Order Comment: CALL Murdock LC4W tel. [phone],h and h results called to and read back by es perdomo on 4w / scb,12/30/2017 09:51, by BONSA MCHC Auto mass conc (RBC) 33.9 % Normal 33.0-37.0 [facility] Comment on above: Order Comment: CALL Murdock LC4W tel. [phone],h and h results called to and read back by es perdomo on 4w / scb,12/30/2017 09:51, by BONSA MCV Auto Entitic volume (RBC) 79.1 fL Low 82.0-100.0 [facility] Comment on above: Order Comment: CALL Murdock LC4W tel. [phone],h and h results called to and read back by es perdomo on 4w / scb,12/30/2017 09:51, by BONSA Monocytes Auto #/vol (Bld) 0.2 10*3/uL Normal 0.2-0.8 [facility] Comment on above: Order Comment: CALL Murdock LC4W tel. [phone],h and h results called to and read back by es perdomo on 4w / scb,12/30/2017 09:51, by BONSA Monocytes/100 WBC Auto (Bld) 4.8 % Normal [facility] Comment on above: Order Comment: CALL Murdock LC4W tel. [phone],h and h results called to and read back by es perdomo on 4w / scb,12/30/2017 09:51, by BONSA Neutrophils Auto #/vol (Bld) 3.7 10*3/uL Normal 1.4-6.5 [facility] Comment on above: Order Comment: CALL Murdock LC4W tel. [phone],h and h results called to and read back by es perdomo on 4w / scb,12/30/2017 09:51, by BONSA Neutrophils/100 WBC Auto (Bld) 72.2 % Normal [facility] Comment on above: Order Comment: CALL Murdock LC4W tel. [phone],h and h results called to and read back by es perdomo on 4w / scb,12/30/2017 09:51, by BONSA Platelets Auto #/vol (Bld) 231 10*3/uL Normal 130-400 [facility] Comment on above: Order Comment: CALL Murdock LC4W tel. [phone],h and h results called to and read back by es leanne on 4w / scb,12/30/2017 09:51, by [employer] RBC Auto #/vol (Bld) 2.62 10*6/uL Low 4.20-5.40 [facility] Comment on above: Order Comment: CALL Murdock LC4W tel. [phone],h and h results called to and read back by es pattonjeremi on 4w / scb,12/30/2017 09:51, by BON WBC Auto #/vol (Bld) 5.1 10*3/uL Normal 4.8-10.8 [facility] Comment on above: Order Comment: CALL Murdock LC4W tel. [phone],h and h results called to and read back by es pattonjeremi on 4w / scb,12/30/2017 09:51, by [employer] CT SINUS WO CONTRASTon 12-30 CT SINUS [...] by:FRANCO Mcmanusigned by:Huan Funes MD12/30/17inal result Normal [facility] Miscellaneous test 1on 12-29-2017 Miscellaneous Test 1 SEE NOTE Normal [facility] Comment on above: Order Comment: Colle ction has been rescheduled by VIVIEN at 12/26/2017 14:59. Reason:patient refusing until she gets pain meds Result Comment: Test name Result Flag Units RefIntvl HIV-1,2 Combo Antigen/Antibody Negative NegativeThe specimen was non-reactive for HIV-1 and HIV-2 antibodies, and [id number]. Based on this non-reactive screen result, further reflexivetestingwas not indicated and was, therefore, not performedINTERPRETIVE INFORMATION: HIV-1,2 Combo Ag/Ab EIA w/ReflexThis assay should not be used for blood donor screening, associatedre-entryprotocols, or for screening Human Cell, Tissues and Cellular andTissue-BasedProducts (HCT/P).Performed by [facility],[address] [place] [id number] xlh.GMEX, Artur Agustin MD - Lab. Director Protein mass conc 1587028 g/dL Normal [facility] Comment on above: Order Comment: Terri gonzales has been rescheduled by SAUDE at 12/26/2017 14:59. Reason:patient refusing until she gets pain meds Bacterial susceptibility fox el by Elvia 12-29-2017 Bacterial susceptibility panel by Minimum inhibitory concentration (ISRA) ORDERED BY: YOLANDA POWELL: Bronchial Washing Right Upper Lobe COLLECTED: 12/29/17 15:09ANTIBIOTICS AT RADHA.: RECEIVED : 12/29/17 15:37 Supplemental ReportCALL Murdock LC4W tel. [phone],MRSA results called to and read back by [...] Vancomycin <=0.5 S S=SUSCEPTIBLE I=INTERMEDIATE R=RESISTANT Normal [facility] Bacterial susceptibility panel by Minimum inhibitory concentration (ISRA) ORDERED BY: YOLANDA POWELL: Bronchial Washing Body Fluid COLLECTED: 12/29/17 14:43ANTIBIOTICS AT RADHA.: RECEIVED : 12/29/17 15:42CALL Murdock LC4W tel. [phone],MRSAresults called to and read back by Nanci, 01/01/2018 12:22, by Milad Burt FINAL 12/30/17 10:59 Few WBC's Few epithelial [...] Trimethoprim/Sulfamethoxaz ole <=20 S S=SUSCEPTIBLE I=INTERMEDIATE R=RESISTANT [facility] Body Fluid Cell Counton 11-1 Appearance Nom (U) Hazy [facility] Clot Check see below Normal [facility] Comment on above: Result Comment: No C lots Seen Color Nom (U) Colorless Normal [facility] Fluid Source Pleural Normal [facility] Total Nucleated Cells 341 /cumm Normal [facility] Total Red Blood Cells 2888 /cumm Normal [facility] Total Cells Counted for Diff 100 Normal [facility] CBC With Platelet No Aden chapman 12-29-2017 Erythrocyte distribution width Auto Ratio (RBC) 18.5 % Critically high 11.5-14.5 [facility] Comment on above: Order Comment: Terri gonzales has been rescheduled by SAUDE at 12/26/2017 14:59. Reason:patient refusing until she gets pain meds Hematocrit Auto Volume Fraction (Bld) 18.5 % Critically low 37.0-47.0 [facility] Comment on above: Order Comment: Terri gonzales has been rescheduled by SAUDE at 12/26/2017 14:59. Reason:patient refusing until she gets pain meds Hemoglobin mass conc (Bld) 6.2 g/dL Critically low 12.0-16.0 [facility] Comment on above: Order Comment: Terri gonzales has been rescheduled by SAUDE at 12/26/2017 14:59. Reason:patient refusing until she gets pain meds MCH Auto Entitic mass (RBC) 26.6 pg Low 27.0-31.3 [facility] Comment on above: Order Comment: Terri gonzales has been rescheduled by SAUDE at 12/26/2017 14:59. Reason:patient refusing until she gets pain meds MCHC Auto mass conc (RBC) 33.6 % Normal 33.0-37.0 [facility] Comment on above: Order Comment: Terri gonzales has been rescheduled by SAUDE at 12/26/2017 14:59. Reason:patient refusing until she gets pain meds MCV Auto Entitic volume (RBC) 79.0 fL Low 82.0-100.0 [facility] Comment on above: Order Comment: Terri gonzales has been rescheduled by SAUDE at 12/26/2017 14:59. Reason:patient refusing until she gets pain meds Platelets Auto #/vol (Bld) 173 10*3/uL Normal 130-400 [facility] Comment on above: Order Comment: Terri gonzales has been rescheduled by SAUDE at 12/26/2017 14:59. Reason:patient refusing until she gets pain meds RBC Auto #/vol (Bld) 2.34 10*6/uL Low 4.20-5.40 [facility] Comment on above: Order Comment: Terri gonzales has been rescheduled by SAUDE at 12/26/2017 14:59. Reason:patient refusing until she gets pain meds WBC Auto #/vol (Bld) 3.5 10*3/uL Low 4.8-10.8 [facility] Comment on above: Order Comment: Terri gonzales has been rescheduled by SAUDE at 12/26/2017 14:59. Reason:patient refusing until she gets pain meds CONSULTATIONon 12-29-[address] [place] [address] CONSULTATIONPATIENT NAME: ALESHA KENNEY : 1985[facility] REC NO: [id number] ROOM:ACCOUNT NO: [id number] ADMIT DATE: 12/25/2017PROVIDER: Govindram Leigha Carbone, MDCONSULT DATE: 12/29/2017Consultation from Dr. Dominga [...] this consult.AYANA CARBONE, MDD: 12/29/2017 18:06:42 [id number]#: [id number] Doc#: [id number]: MD Dominga Rai MD [facility] Culture, Respiratoryon 12-29 Culture, Respiratory ORDERED BY: YOLANDA POWELL: Bronchial Washing Left Lower Lobe COLLECTED: 12/29/17 15:11ANTIBIOTICS AT RADHA.: RECEIVED : 12/29/17 15:41CALL Murdock LC4W tel. [phone],MRSA results called to and read back by Nanci, 01/01/2018 12:23, by ROGRUKHSANAGram Stain Direct FINAL 12/30/17 10:54 Moderate WBC's, No organisms seenCulture, Respiratory FINAL 01/01/18 12:24 Light growth Staph aureus MRSA CONTACT PRECAUTIONS INDICATED PBP2= POSITIVE Previous value was 01 Staph aureus MSSA, verified by KEV at 13:14 on 12/31/17 [facility] Culture, Respiratory ORDERED BY: YOLANDA POWELL: Bronchial [...] Gram negative arminda ID to follow Normal [facility] Culture, Respiratory ORDERED BY: YOLANDA POWELL: Bronchial Washing Body Fluid COLLECTED: 12/29/17 14:43ANTIBIOTICS AT RADHA.: RECEIVED : 12/29/17 15:42Gram Stain Direct FINAL 12/30/17 10:59 Few WBC's Few epithelial cells Few Mixed Respiratory FloraCulture, Respiratory INTERIM 12/31/17 13:15 Light growth Gram negative arminda ID and sensitivity to follow Rare growth Serratia marcescens Refer to previous sensitivity Heavy growth Staph aureus MSSA Normal [facility] Cytology Medical Specimenon 12-29-2017 Cytology Medical Specimen Invalid Interpretation Code [facility] Comment on above: Result Comment: [facility] [address] [id number] [phone] CYTOLOGY REPORTPatient Name: ALESHA KENNEY Accession No: [id number] Age Sex: 1985 32 Y/ F Location: [id number] No: [id number] Collected: 12/29/2017Med Rec No: [id number] Received: 12/30/2017Attend Phys: NEENA DUPONT Completed 01/03/2018Perform [...] ml fixed1 monolayer1 cell blockhx Not givenCPT: 25725 X2 26287 X2 Screened by: Irasema CAZARES M.D. 01/03/2018 [...] by:FRANCO Mittaligned by:Keith Durham MD12/29/17inal result Normal [facility] HCV by Quant NAATon 12-30-19 18 HCV Qnt by NAAT IU/mL Not Detected Normal [facility] Comment on above: Order Comment: Terri ctklaudia has been rescheduled by SATORI at 12/26/2017 14:59. Reason:patient refusing until she gets pain meds HCV Qnt by NAAT log IU/mL Not Detected Normal [facility] Comment on above: Order Comment: Terri ctklaudia has been rescheduled by VIVIEN at 12/26/2017 14:59. Reason:patient refusing until she gets pain meds Prothrombin Timeon 8 INR Coag RelTime (PPP) 1.1 {INR} Normal [facility] Comment on above: Result Comment: Dimitrios mmended [...] Coag time (PPP) 11.4 s Normal 9.6-12.3 [facility] Quantiferon-TB Gold Plus, 1- Tubeon 12-29-2017 Quantiferon Mitogen minus NIL 0.52 IU/mL Normal [facility] Comment on above: Order Comment: Terri ctklaudia has been rescheduled by SAUDE at 12/26/2017 14:59. Reason:patient refusing until she gets pain meds Quantiferon NIL 0.05 IU/mL Normal [facility] Comment on above: Order Comment: Terri ctklaudia has been rescheduled by VIVIEN at 12/26/2017 14:59. Reason:patient refusing until she gets pain meds Result Comment: Perf ormed by [facility],[address], [facility] [place] [address] ssd.GMEX, Artur Agustin MD - Lab. Director Quantiferon PlusTB1 minus NIL 0.00 IU/mL Normal 0.00-0.34 [facility] Comment on above: Order Comment: Terri gonzales has been rescheduled by SAUDE at 12/26/2017 14:59. Reason:patient refusing until she gets pain meds Quantiferon PlusTB2 minus NIL 0.00 IU/mL Normal 0.00-0.34 [facility] Comment on above: Order Comment: Terri gonzales has been rescheduled by SAUDE at 12/26/2017 14:59. Reason:patient refusing until she gets pain meds Quantiferon TB Gold Plus Negative Normal Negative [facility] Comment on above: Order Comment: Terri gonzales [...] CD4+ lymphocyte reactivity, specifically stimulated by the FH5lyxxubtj. The TB2-NIL tube detects both CD4+ and CD8+ lymphocytereactivity,stimulated by TB2 antigens. An overall Negative result does notcompletelyrule out TB infection.A false-positive result in the absence of other clinical evidence of TBinfection is not uncommon. Refer to: Updated Guidelines for UsingInterferonGamma Release Assays to Detect Mycobacterium tuberculosis Infection ---[place], 2010(http://www.cdc.gov/mmwr/preview/mmwrhtml/yw2082c7.htm),for more information concerning test performance in low-prevalencepopulations and use in occupational screening. CBC With Platelet No Aden chapman 12-28-2017 Erythrocyte distribution width Auto Ratio (RBC) 18.9 % Critically high 11.5-14.5 [facility] Comment on above: Order Comment: Terri gonzales has been rescheduled by SAUDE at 12/26/2017 14:59. Reason:patient refusing until she gets pain meds Hematocrit Auto Volume Fraction (Bld) 21.0 % Critically low 37.0-47.0 [facility] Comment on above: Order Comment: Terri gonzales has been rescheduled by SAUDE at 12/26/2017 14:59. Reason:patient refusing until she gets pain meds Hemoglobin mass conc (Bld) 6.8 g/dL Critically low 12.0-16.0 [facility] Comment on above: Order Comment: Terri gonzales has been rescheduled by SAUDE at 12/26/2017 14:59. Reason:patient refusing until she gets pain meds Result Comment: call ed h and h to lavinia chacon on 1w MCH Auto Entitic mass (RBC) 26.0 pg Low 27.0-31.3 [facility] Comment on above: Order Comment: Terri gonzales has been rescheduled by SAUDE at 12/26/2017 14:59. Reason:patient refusing until she gets pain meds MCHC Auto mass conc (RBC) 32.6 % Low 33.0-37.0 [facility] Comment on above: Order Comment: Terri gonzales has been rescheduled by SAUDE at 12/26/2017 14:59. Reason:patient refusing until she gets pain meds MCV Auto Entitic volume (RBC) 79.9 fL Low 82.0-100.0 [facility] Comment on above: Order Comment: Terri gonzales has been rescheduled by SAUDE at 12/26/2017 14:59. Reason:patient refusing until she gets pain meds Platelets Auto #/vol (Bld) 147 10*3/uL Normal 130-400 [facility] Comment on above: Order Comment: Terri gonzales has been rescheduled by SAUDE at 12/26/2017 14:59. Reason:patient refusing until she gets pain meds RBC Auto #/vol (Bld) 2.63 10*6/uL Low 4.20-5.40 [facility] Comment on above: Order Comment: Terri gonzales has been rescheduled by SAUDE at 12/26/2017 14:59. Reason:patient refusing until she gets pain meds WBC Auto #/vol (Bld) 4.2 10*3/uL Low 4.8-10.8 [facility] Comment on above: Order Comment: Terri gonzales has been rescheduled by SAUDE at 12/26/2017 14:59. Reason:patient refusing until she gets pain meds Hepatitis B Core Abs, Totalo n 12-28-2017 Hepatitis B Core Abs, Total Positive Abnormal Negative [facility] Comment on above: Order Comment: Terri gonzales [...] Tissues and Cellular andTissue-Based Products (HCT/P).Performed by [facility] [facility] [place] [address] qql.GMEX, Artur Agustin MD - Lab. Director Transferrinon 12-28-2017 Transferrin mass conc 135 mg/dL Low 200-400 [facility] Comment on above: Order Comment: Terri gonzales has been rescheduled by SAUDE at 12/26/2017 14:59. Reason:patient refusing until she gets pain meds Result Comment: Perf ormed by [facility] [place] [address] oux.GMEX, Artur Agustin MD - Lab. Director XR [...] Montoya, DOSigned by:Chandrakant Montoya, DO12/28/18Final result Normal [facility] CBC With Platelet and Differ entialon 12-27-2017 Anisocytosis Auto Ql (Bld) 2+ Normal [facility] Comment on above: Order Comment: CALL Murdock 1 tel. [phone], called hgb to ramila oseguera rn on 1w by scbHematology results called to and read back by ramila oseguera on 1w, 12/27/201706:44, by RAYSHAWN Hypochromia 1+ Normal [facility] Comment on above: Order Comment: CALL Murdock 1W tel. [phone], called hgb to ramila oseguera rn on 1w by scbHematology results called to and read back by ramila oseguera on 1w, 12/27/201706:44, by BONSA Lymphocytes Auto #/vol (Bld) 0.8 10*3/uL Low 1.0-4.8 [facility] Comment on above: Order Comment: CALL Murdock 1W tel. [phone], called hgb to ramila oseguera rn on 1w by scbHematology results called to and read back by ramila oseguera on 1w, 12/27/201706:44, by BONSA Lymphocytes/100 WBC Auto (Bld) 22.0 % Normal [facility] Comment on above: Order Comment: CALL Murdock 1W tel. [phone], called hgb to ramila oseguera rn on 1w by scbHematology results called to and read back by ramila oseguera on 1w, 12/27/201706:44, by BONSA Microcytic 2+ Normal [facility] Comment on above: Order Comment: CALL Murdock 1W tel. [phone], called hgb to ramila oseguera rn on 1w by scbHematology results called to and read back by ramila june on 1w, :44, by BONSA Monocytes Auto #/vol (Bld) 0.1 10*3/uL Low 0.2-0.8 [facility] Comment on above: Order Comment: CALL Murdock LC1W tel. [phone], called hgb to ramila oseguera rn on 1w by scbHematology results called to and read back by ramila june on 1w, :44, by BONSA Monocytes/100 WBC Auto (Bld) 3.8 % Normal [facility] Comment on above: Order Comment: CALL Murdock LC1W tel. [phone], called hgb to ramila oseguera rn on 1w by scbHematology results called to and read back by ramila june on 1w, :44, by BONSA Neutrophils Auto #/vol (Bld) 2.7 10*3/uL Normal 1.4-6.5 [facility] Comment on above: Order Comment: CALL Murdock LC1W tel. [phone], called hgb to ramila oseguera rn on 1w by scbHematology results called to and read back by ramila june on 1w, :44, by BONSA Neutrophils/100 WBC Auto (Bld) 74.0 % Normal [facility] Comment on above: Order Comment: CALL Murdock 1W tel. [phone], called hgb to ramila oseguera rn on 1w by scbHematology results called to and read back by ramila june on 1w, :44, by BONSA Platelet Slide Review Decreased Normal [facility] Comment on above: Order Comment: CALL Murdock LC1W tel. [phone], called hgb to ramila oseguera rn on 1w by scbHematology results called to and read back by ramila june on 1w, :44, by BONSA Poikilocytosis 1+ Normal [facility] Comment on above: Order Comment: CALL Murdock LC1W tel. [phone], called hgb to ramila oseguera rn on 1w by scbHematology results called to and read back by ramila june on 1w, :44, by BONSA Basophils Auto #/vol (Bld) 0.0 10*3/uL Normal 0.0-0.2 [facility] Comment on above: Order Comment: CALL Murdock [facility] tel. [phone], called hgb to ramila june rn on 1w by scbHematology results called to and read back by ramila june on 1w, :44, by BONSA Basophils/100 WBC Auto (Bld) 1.0 % Normal [facility] Comment on above: Order Comment: CALL Murdock [facility] tel. [phone], called hgb to ramila june rn on 1w by scbHematology results called to and read back by ramila june on 1w, :44, by BONSA Eosinophils Auto #/vol (Bld) 0.0 10*3/uL Normal 0.0-0.7 [facility] Comment on above: Order Comment: CALL Murdock [facility] tel. [phone], called hgb to ramila oseguera rn on 1w by scbHematology results called to and read back by ramila june on 1w, :44, by BONSA Eosinophils/100 WBC Auto (Bld) 1.1 % Normal [facility] Comment on above: Order Comment: CALL Murdock [facility] tel. [phone], called hgb to ramila june rn on 1w by scbHematology results called to and read back by ramila june on 1w, :44, by BONSA Erythrocyte distribution width Auto Ratio (RBC) 18.8 % Critically high 11.5-14.5 [facility] Comment on above: Order Comment: CALL Murdock [facility] tel. [phone], called hgb to ramila june rn on 1w by scbHematology results called to and read back by ramila june on 1w, :44, by BONSA Hematocrit Auto Volume Fraction (Bld) 21.1 % Low 37.0-47.0 [facility] Comment on above: Order Comment: CALL Murdock [facility] tel. [phone], called hgb to ramila june rn on 1w by scbHematology results called to and read back by ramila june on 1w, :44, by RAYSHAWN Hemoglobin mass conc (Bld) 6.9 g/dL Critically low 12.0-16.0 [facility] Comment on above: Order Comment: CALL Murdock [facility] tel. [phone], called hgb to ramila june rn on 1w by scbHematology results called to and read back by ramila june on 1w, :44, by BONSA Result Comment: call ed hgb to ramila june on 1w / scb MCH Auto Entitic mass (RBC) 26.5 pg Low 27.0-31.3 [facility] Comment on above: Order Comment: CALL Murdock [facility] tel. [phone], called hgb to ramila june rn on 1w by scbHematology results called to and read back by ramila june on 1w, :44, by RASYHAWN MCHC Auto mass conc (RBC) 32.8 % Low 33.0-37.0 [facility] Comment on above: Order Comment: CALL Murdock [facility] tel. [phone], called hgb to ramila june rn on 1w by scbHematology results called to and read back by ramila june on 1w, :44, by RAYSHAWN MCV Auto Entitic volume (RBC) 80.9 fL Low 82.0-100.0 [facility] Comment on above: Order Comment: CALL Murdock [facility] tel. [phone], called hgb to ramila june rn on 1w by scbHematology results called to and read back by ramila june on 1w, :44, by RAYSHAWN Platelets Auto #/vol (Bld) 122 10*3/uL Low 130-400 [facility] Comment on above: Order Comment: CALL Murdock [facility] tel. [phone], called hgb to ramila june rn on 1w by scbHematology results called to and read back by ramila june on 1w, :44, by BONSA RBC Auto #/vol (Bld) 2.61 10*6/uL Low 4.20-5.40 [facility] Comment on above: Order Comment: CALL Murdock LC1W tel. [phone], called hgb to ramila oseguera rn on 1w by scbHematology results called to and read back by ramila oseguera on 1w, 12/27/201706:44, by RAYSHAWN WBC Auto #/vol (Bld) 3.6 10*3/uL Low 4.8-10.8 [facility] Comment on above: Order Comment: CALL Murdock LC1W tel. [phone], called hgb to ramila oseguera rn on 1w by scbHematology results called to and read back by ramila oseguera on 1w, 12/27/201706:44, by RAYSHAWN Comprehensive Metabolic Pane l reflex Mgon 12-27-2017 Albumin mass conc 2.4 g/dL Low 3.9-4.9 [facility] ALP enzyme act/vol 40 U/L Normal 40-130 [facility] ALT enzyme act/vol U/L Normal 0-33 [facility] Anion gap 3 molar conc 11 mmol/L Normal 7-13 [facility] AST enzyme act/vol 6 U/L Normal 0-35 [facility] Bilirubin mass conc mg/dL Normal 0.0-1.2 [facility] Calcium mass conc 7.7 mg/dL Low 8.6-10.2 [facility] Chloride molar conc 110 mmol/L Critically high 98-107 [facility] CO2 molar conc 20 mmol/L Low 22-29 [facility] Creatinine mass conc 0.64 mg/dL Normal 0.50-0.90 [facility] GFR/1.73 sq M predicted among blacks MDRD vol rate/area (S/P/Bld) mL/min/{1.73_m2} Normal >60 [facility] Comment on above: Result Comment: >60 mL/min/1.73m2 EGFR, calc. for ages 18 and older using theMDRD formula (not corrected for weight), is valid for stablerenal function. GFR/1.73 sq M.predicted MDRD vol rate/area mL/min/{1.73_m2} Normal >60 [facility] Comment on above: Result Comment: >60 mL/min/1.73m2 EGFR, calc. for ages 18 and older using theMDRD formula (not corrected for weight), is valid for stablerenal function. Globulin Calculated mass conc (S) 3.9 g/dL Critically high 2.3-3.5 [facility] Glucose mass conc 115 mg/dL Critically high 74-109 [facility] [place] Potassium reflex Mg 3.8 mEq/L Normal 3.5-5.1 [facility] Protein mass conc 6.3 g/dL Low 6.4-8.1 [facility] Sodium molar conc 141 mmol/L Normal 132-144 [facility] Urea nitrogen mass conc 10 mg/dL Normal 6-20 [facility] Ferritinon 12-27-2017 Ferritin [Mass/volume] in Serum or Plasma 152.3 ng/mL Critically high 13.0-150.0 [facility] Iron Profileon 12-27-2017 % Saturation 8 % Low 11-46 [facility] Iron Binding Capacity 132 ug/dL Low 178-450 [facility] Iron mass conc 11 ug/dL Low 37-145 [facility] RBC LRon 12-27-2017 RBC Auto #/vol (Bld) PATIENT: ISABEL Jackson LOC: [id number]# : [id number] : 1985 SEX: FORDERED BY: KIAH CHAUDHARY ORDERED : 12/27/2017 07:06 COLLECTED: 12/27/2017 07:20ORDER : [id number] RECEIVED : 12/27/2017 07:27 -----TEST NAME RESULT UNITS RANGES ABN FL STRBC LR [id number] RBC LR W0 F = Normal [facility] Retic Automatedon 12-27-2017 Hematocrit Auto Volume Fraction (Bld) 21.1 % Low 37.0-47.0 [facility] Retic Abs 0.066 m/cumm Normal 0.022-0.11 [facility] Reticulocyte Count Automated 2.5 % Critically high 0.6-2.2 [facility] Type and Screen Capture 3 sc rn cellon 12-27-2017 Type and Screen Capture 3 scrn cell PATIENT: ISABEL Jackson LOC: [id number]# : [id number] : [id number] SEX: FORDERED BY: KIAH CHAUDHARY ORDERED : 12/27/2017 07:06 COLLECTED: 12/27/2017 07:20ORDER : [id number] RECEIVED : 12/27/2017 07:27 -----TEST NAME RESULT UNITS RANGES ABN FL STABORH Capture A POS FAntibody 3 Cell Scrn David MORENO F @12/27/17 10:58 by BEBETO: ANTIBODY SCREEN PERFORMED ON BACKUP CAPTURE. ------- Normal [facility] Bacterial susceptibility fox el by MICon 12-26-2017 [...] ole <=20 S S=SUSCEPTIBLE I=INTERMEDIATE R=RESISTANT Normal [facility] CT CHEST W CONTRASTon 2017 CT CHEST [...] tissue density, adenopathy.There is trace pericardial effusion.The [id number] the gallbladder surgically absent.IMPRESSION: FINDINGS DESCRIBED ABOVE. [...] by:FRANCO Santamariaigned by:Gordon Hinton MD12/26/17inal result Normal [facility] Culture, Blood 2on 8 Culture, Blood 2 OR DERED BY: GALLITO POLANCO: Blood COLLECTED: 12/26/17 15:49ANTIBIOTICS AT RADHA.: RECEIVED : 12/26/17 15:56Culture, Blood 2 FINAL 12/31/17 16:15 No growth after 5 days of incubation. Normal [facility] Culture, Respiratoryon 12-26 Culture, Respiratory ORDERED BY: GALLITO POLANCO: Sputum Expectorated COLLECTED: 12/26/17 14:45ANTIBIOTICS AT RADHA.: RECEIVED : 12/29/17 12:46Gram Stain Direct FINAL 12/29/17 16:19 Moderate WBC's Few epithelial cells Few Yeast with pseudohyphaeCulture, Respiratory INTERIM 12/30/17 11:53 Light growth Gram negative arminda ID and sensitivity to follow Moderate growth Yeast No further workup Normal [facility] Hepatitis C Antibodyon 12-26 Hepatitis C Antibody Interp REACTIVE Abnormal [facility] Comment on above: Order Comment: Terri gonzales has been rescheduled by VIVIEN at 12/26/2017 14:59. Reason:patient refusing until she gets pain meds Influenza A and Bon 12-27-19 18 Influenza A Antigen Negative Normal Negative [facility] Influenza B Antigen Negative Normal Negative [facility] Bacterial susceptibility fox el by Elvia 12-25-2017 Bacterial susceptibility panel by Minimum inhibitory concentration (ISRA) ORDERED BY: FLOYD SNIDER: Blood Blood COLLECTED: 12/25/17 21:04ANTIBIOTICS AT RADHA.: RECEIVED : 12/25/17 21:04CALL Murdock LOER tel. [phone],Blood Culture results called to and read back by Beena MASON, 12/26/2017 19:32, by Jodie, Blood FINAL 12/28/17 07:32 1 out of 2 blood cultures POSITIVE for Serratia marcescens S. marces ANTIBIOTICS ISRA Interp A moxicillin/Clavulanate >=32 R Cefepime <=1 S Ceftriaxone <=1 S Ciprofloxacin <=0.25 S Gentamicin <=1 S Trimethoprim/Sulfamethoxaz ole <=20 S S=SUSCEPTIBLE I=INTERMEDIATE R=RESISTANT Normal [facility] CBC With Platelet and Differ entialon 12-25-2017 Basophils Auto #/vol (Bld) 0.0 10*3/uL Normal 0.0-0.2 [facility] Basophils/100 WBC Auto (Bld) 0.5 % Normal [facility] Eosinophils Auto #/vol (Bld) 0.0 10*3/uL Normal 0.0-0.7 [facility] Eosinophils/100 WBC Auto (Bld) 0.2 % Normal [facility] Erythrocyte distribution width Auto Ratio (RBC) 18.9 % Critically high 11.5-14.5 [facility] Hematocrit Auto Volume Fraction (Bld) 23.6 % Low 37.0-47.0 [facility] Hemoglobin mass conc (Bld) 8.0 g/dL Low 12.0-16.0 [facility] Hypochromia PRESENT Normal [facility] Lymphocytes Auto #/vol (Bld) 1.3 10*3/uL Normal 1.0-4.8 [facility] Lymphocytes/100 WBC Auto (Bld) 16.6 % Normal [facility] MCH Auto Entitic mass (RBC) 26.5 pg Low 27.0-31.3 [facility] MCHC Auto mass conc (RBC) 33.9 % Normal 33.0-37.0 [facility] MCV Auto Entitic volume (RBC) 78.1 fL Low 82.0-100.0 [facility] Monocytes Auto #/vol (Bld) 0.5 10*3/uL Normal 0.2-0.8 [facility] Monocytes/100 WBC Auto (Bld) 6.3 % Normal [facility] Neutrophils Auto #/vol (Bld) 6.2 10*3/uL Normal 1.4-6.5 [facility] Neutrophils/100 WBC Auto (Bld) 76.4 % Normal [facility] Platelets Auto #/vol (Bld) 178 10*3/uL Normal 130-400 [facility] RBC Auto #/vol (Bld) 3.02 10*6/uL Low 4.20-5.40 [facility] WBC Auto #/vol (Bld) 8.1 10*3/uL Normal 4.8-10.8 [facility] Comprehensive Metabolic Pane thanh 12-25-2017 Albumin mass conc 3.2 g/dL Low 3.9-4.9 [facility] ALP enzyme act/vol 39 U/L Low 40-130 [facility] ALT enzyme act/vol U/L Normal 0-33 [facility] Anion gap 3 molar conc 14 mmol/L Critically high 7-13 [facility] AST enzyme act/vol 10 U/L Normal 0-35 [facility] Bilirubin mass conc 0.6 mg/dL Normal 0.0-1.2 [facility] Calcium mass conc 8.7 mg/dL Normal 8.6-10.2 [facility] Chloride molar conc 94 mmol/L Low 98-107 [facility] CO2 molar conc 24 mmol/L Normal 22-29 [facility] Creatinine mass conc 0.68 mg/dL Normal 0.50-0.90 [facility] GFR/1.73 sq M predicted among blacks MDRD vol rate/area (S/P/Bld) mL/min/{1.73_m2} Normal >60 [facility] Comment on above: Result Comment: >60 mL/min/1.73m2 EGFR, calc. for ages 18 and older using theMDRD formula (not corrected for weight), is valid for stablerenal function. GFR/1.73 sq M.predicted MDRD vol rate/area mL/min/{1.73_m2} Normal >60 [facility] Comment on above: Result Comment: >60 mL/min/1.73m2 EGFR, calc. for ages 18 and older using theMDRD formula (not corrected for weight), is valid for stablerenal function. Globulin Calculated mass conc (S) 4.4 g/dL Critically high 2.3-3.5 [facility] Glucose mass conc 120 mg/dL Critically high 74-109 [facility] Potassium molar conc 4.2 mmol/L Normal 3.5-5.1 [facility] Protein mass conc 7.6 g/dL Normal 6.4-8.1 [facility] Sodium molar conc 132 mmol/L Normal 132-144 [facility] Urea nitrogen mass conc 7 mg/dL Normal 6-20 [facility] Creatine Kinaseon 12-25-2017 CK enzyme act/vol 19 U/L Normal 0-170 [facility] Culture, Blood 2on 8 Culture, Blood 2 OR DERED BY: FLOYD SNIDER: Blood COLLECTED: 12/25/17 21:04ANTIBIOTICS AT RADHA.: RECEIVED : 12/25/17 21:04Culture, Blood 2 FINAL 12/30/17 22:15 No growth after 5 days of incubation. Normal [facility] Lactic Acidon 12-25-2017 Lactate molar conc 2.1 mmol/L Normal 0.5-2.2 [facility] Prothrombin Timeon 8 INR Coag RelTime (PPP) 1.2 {INR} Normal [facility] Comment on above: Result Comment: Dimitrios mmended [...] Coag time (PPP) 11.8 s Normal 9.6-12.3 [facility] Troponinon 12-25-2017 Troponin I.cardiac mass conc ng/mL Normal 0.000-0.01 [facility] Comment on above: Result Comment: Meth odology by Troponin T. UR Drug Screen Rapidon 12-25 Drug Screen Comment see below Normal [facility] Comment on above: Result Comment: This method is a screening test to detect only these drugclasses as part of a medical workup. Confirmatory testingby another method should be ordered if clinically indicated. UR Amphetamines Rapid Screen Negative Normal Negative < [facility] Comment on above: Result Comment: Effe ctive: 08/30/17Methodology and/or Reference Range-Cutoff has changed. UR Barbiturates Rapid Screen Negative Normal Negative < [facility] Comment on above: Result Comment: Effe ctive: 08/30/17Methodology and/or Reference Range-Cutoff has changed. UR Benzo Rapid Screen Negative Normal Negative < [facility] Comment on above: Result Comment: Effe ctive: 08/30/17Methodology and/or Reference Range-Cutoff has changed. UR Cannabinoids Rapid Screen Negative Normal Negative < [facility] UR Cocaine Rapid Screen Negative Normal Negative < [facility] Comment on above: Result Comment: Effe ctive: 08/30/17Methodology and/or Reference Range-Cutoff has changed. UR Opiates Rapid Screen Negative Normal Negative < [facility] Comment on above: Result Comment: Effe ctive: 08/30/17Methodology and/or Reference Range-Cutoff has changed. UR PCP Rapid Screen Negative Normal Negative < [facility] UR Tricyclics Rapid Screen - Rapid Negative Normal Negative < [facility] Comment on above: Result Comment: Effe ctive: 08/30/17Methodology and/or Reference Range-Cutoff has changed. UR HCG Qualitativeon 018 HCG.beta subunit ( test) Ql (U) Negative Normal Detects HC [facility] Urinalysis, reflex to cultur eugenia 12-25-2017 Bilirubin Ql (U) Negative Normal Negative [facility] Clarity Nom (U) Clear Normal Clear [facility] Color Nom (U) Yellow Normal Straw/Arthur [facility] Glucose Ql (U) Negative Normal Negative [facility] Hemoglobin Test strip Ql (U) Negative Normal Negative [facility] Ketones Ql (U) Negative Normal Negative [facility] Leukocyte esterase Test strip Ql (U) Negative Normal Negative [facility] Nitrite Test strip Ql (U) Negative Normal Negative [facility] pH Test strip (U) 7.0 [pH] Normal 5.0-9.0 [facility] Protein Test strip Ql (U) Negative Normal Negative [facility] Specific gravity Relative Density (U) 1.015 Normal 1.005-1.03 [facility] Urine Reflexed to Culture Not Indicated Normal [facility] Urobilinogen Test strip Qn (U) 0.2 {Katy'U}/dL Normal < 2.0 [facility] Vital Signs Date Time Vital Sign Value Performing Clinician Facility 03-13-2024 14:45-0500 Body height 172.7 cm Sonya Herediak [employer] HEL[employer] Work Phone: [facility] 03-13-2024 14:45-0500 Body mass index (BMI) [Ratio] 47.1 kg/m2 Sonya Manningpatrick [employer] HEL[employer] Work Phone: [facility] 03-13-2024 14:45-0500 Body temperature 97.39 [degF] Sonya Manningpatrick [employer] HEL[employer] Work Phone: [facility] 03-13-2024 14:45-0500 Body weight 140.52 kg Sonya Manningpatrick [employer] HEL[employer] Work Phone: [facility] 03-13-2024 14:45-0500 Diastolic blood pressure 90 mm[Hg] Sonya Manningpatrick [employer] HEL[employer] Work Phone: [facility] 03-13-2024 14:45-0500 Heart rate 89 /min Sonya Manningpatrick [employer] HEL[employer] Work Phone: [facility] 03-13-2024 14:45-0500 Respiratory rate 16 /min Sonya Manningpatrick [employer] HEL[employer] Work Phone: [facility] 03-13-2024 14:45-0500 SaO2% (BldA) [Mass fraction] 98 % Sonya Manningpatrick [employer]ER HELPER Work Phone: [facility] 03-13-2024 14:45-0500 Systolic blood pressure 140 mm[Hg] Sonya Villa [employer] HELPER Work Phone: [facility] 03-09-2024 14:38-0500 Body height 172.7 cm Sonya Villa [employer] Work Phone: [facility] 03-09-2024 14:38-0500 Body mass index (BMI) [Ratio] 46.98 kg/m2 Sonya Villa [employer] Work Phone: [facility] 03-09-2024 14:38-0500 Body temperature 97.81 [degF] Sonya Villa [employer] HEL[employer] Work Phone: [facility] 03-09-2024 14:38-0500 Body weight 140.16 kg Sonya Villa [employer] Work Phone: [facility] 03-09-2024 14:38-0500 Diastolic blood pressure 88 mm[Hg] Sonya Villa [employer] Work Phone: [facility] 03-09-2024 14:38-0500 Heart rate 91 /min Sonya Villa [employer] HEL[employer] Work Phone: [facility] 03-09-2024 14:38-0500 Respiratory rate 16 /min Sonya Villa [employer] HEL[employer] Work Phone: [facility] 03-09-2024 14:38-0500 SaO2% (BldA) [Mass fraction] 96 % Sonya Villa [employer] HEL[employer] Work Phone: [facility] 03-09-2024 14:38-0500 Systolic blood pressure 158 mm[Hg] Sonya Villa [employer] HEL[employer] Work Phone: [facility] 11-23-2023 15:22-0400 Body mass index (BMI) [Ratio] 48.24 kg/m2 Sonya Villa [employer] Work Phone: [facility] 11-23-2023 15:22-0400 Body temperature 97.3 [degF] Sonya Villa [employer] HEL[employer] Work Phone: [facility] 11-23-2023 15:22-0400 Body weight 139.71 kg Sonya Villa [employer] HELPER Work Phone: [facility] 11-23-2023 15:22-0400 Diastolic blood pressure 102 mm[Hg] Sonya Villa [employer] HELPER Work Phone: [facility] 11-23-2023 15:22-0400 Heart rate 82 /min Sonya Villa [employer] HEL[employer] Work Phone: [facility] 11-23-2023 15:22-0400 SaO2% (BldA) [Mass fraction] 97 % Sonya Villa [employer] HEL[employer] Work Phone: [facility] 11-23-2023 15:22-0400 Systolic blood pressure 146 mm[Hg] Sonya Villa [employer] HEL[employer] Work Phone: [facility] 10-11-2023 15:42-0400 Body height 170.2 cm Sonya Villa [employer] HELPER Work Phone: [facility] 10-11-2023 15:42-0400 Body mass index (BMI) [Ratio] 49.02 kg/m2 Sonya Villa [employer] Work Phone: [facility] 10-11-2023 15:42-0400 Body temperature 97.3 [degF] Sonya Villa [employer] HEL[employer] Work Phone: [facility] 10-11-2023 15:42-0400 Body weight 141.98 kg Sonya Villa [employer] Work Phone: [facility] 10-11-2023 15:42-0400 Diastolic blood pressure 90 mm[Hg] Sonya Villa [employer]PER Work Phone: [facility] 10-11-2023 15:42-0400 Heart rate 89 /min Osnya Villa [employer]ER HELPER Work Phone: [facility] Comment on above: 100% O2 10-11-2023 15:42-0400 Systolic blood pressure 136 mm[Hg] Sonya Villa [employer] HELPER Work Phone: [facility] 12-25-2017 19:30-0500 Body mass index (BMI) [Ratio] [facility] Encounters Encounter Date Encounter Type Care Provider Facility Start: 03-20-2024 End: 03-20-2024 Clinisync Result Encounter Sonay Villa [employer] Work Phone: [facility] External Department Unsolicited Start: 03-20-2024 End: 03-20-2024 Clinisync Result Encounter Sonya Villa [employer] Work Phone: [facility] External Department Unsolicited Start: 03-13-2024 End: 03-13-2024 ambulatory SONYA VILLA Not Available Start: 03-13-2024 End: 03-13-2024 Periodic preventive med est patient 18-39 yrs Sonya Villa [employer] HELPER Work Phone: [facility] Comment on above: Wellness examination (Primary Dx); Fatigue, unspecified type; Anemia, unspecified type; Acute paronychia of right thumb Start: 03-13-2024 End: 03-13-2024 Patient encounter status Sonya Villa [employer]ER HELPER Work Phone: [facility] Healthcare Start: 03-10-2024 End: 03-10-2024 Clinisync Result Encounter Sonya Villa [employer]ER HELPER Work Phone: [facility] External Department Unsolicited Start: 03-10-2024 End: 03-10-2024 Clinisync Result Encounter Sonya Villa [employer] HELPER Work Phone: [facility] External Department Unsolicited Start: 03-09-2024 End: 03-09-2024 ambulatory SONYA VILLA Not Available Start: 03-09-2024 End: 03-09-2024 Office outpatient visit 10 minutes Sonya Villa [employer] HELPER Work Phone: [facility] Comment on above: Acute paronychia of right thumb (Primary Dx); Primary hypertension (CMS/HCC) Start: 03-09-2024 End: 03-09-2024 Bamboo flowsheet Sonya Herediak [employer]ER HELPER Work Phone: [facility] Start: 03-09-2024 End: 03-09-2024 Bamboo flowsheet Sonya Herediak [employer]ER HELPER Work Phone: [facility] Start: 12-09-2023 End: 12-09-2023 Orders Only Sonya Villa [employer]ER HELPER Work Phone: [facility] Comment on above: Acute non-recurrent frontal sinusitis (Primary Dx) Start: 11-23-2023 End: 11-23-2023 Periodic preventive med est patient 18-39 yrs Sonya Villa [employer]ER HELPER Work Phone: [facility] Comment on above: Blood pressure eleva yue without history of HTN (Primary Dx); Morbid obesity (CMS/HCC); Encounter for wellness examination in adult; Tinea pedis of both feet; Opioid abuse, in remission (CMS/HCC) Start: 11-23-2023 End: 11-23-2023 ambulatory SONYA VILLA Not Available Start: 11-23-2023 End: 11-23-2023 Bamboo flowsheet Sonya Herediak [employer]ER HELPER Work Phone: [facility] Start: 11-23-2023 End: 11-23-2023 Bamboo flowsheet Sonya Dorantrick [employer]ER HELPER Work Phone: [facility] Start: 11-23-2023 End: 11-23-2023 Patient encounter status Sonya Villa [employer]ER HELPER Work Phone: [facility] Start: 10-11-2023 End: 10-11-2023 ambulatory SONYA VILLA Not Available Start: 10-11-2023 End: 10-11-2023 Office outpatient visit 15 minutes Sonya Villa [employer] HELPER Work Phone: [facility] Comment on above: Encounter for weight management [...] Start: 04-05-2023 Patient encounter status Sonya Villa [employer] HELPER Work Phone: [facility] Start: 07-14-2022 End: 07-15-2022 ambulatory Liliane Devries PA-C Facility[facility] Start: 07-06-2022 End: 07-07-2022 ambulatory Liliane Devries PA-C Facility[facility] Start: 06-26-2022 End: 06-27-[address] JESSICA GARG . Facility:[facility] Start: 06-16-2022 End: 06-16-2022 ambulatory KISER H FAWWAD Facility:[facility] Start: 06-11-2022 End: 06-12-[address] JESSICA GARG . Facility:[facility] Start: 05-28-2022 End: 05-29-2022 ambulatory Suresh Broderick MD Facility[facility] Start: 04-22-2022 End: 04-22-2022 ambulatory KISER H FAWWAD Facility:[facility] Start: 08-11-2021 End: 08-12-2021 ambulatory KISER H FAWWAD Facility: Start: 04-24-2019 End: 04-24-2019 Emergency department patient visit UNKNOWN PROVIDER Facility:[facility] Start: 04-05-2018 End: 04-05-2018 Emergency department patient visit NO FAMILY DOCTOR NO FAMILY DOCTOR Facility:[facility] Start: 02-01-2018 End: 02-02-2018 Patient encounter procedure [facility] Start: 01-31-2018 End: 02-01-2018 Patient encounter procedure [facility] Start: 01-30-2018 End: 01-31-2018 Patient encounter procedure [facility] Start: 01-29-2018 End: 01-30-2018 Patient encounter procedure [facility] Start: 01-28-2018 End: 01-29-2018 Patient encounter procedure [facility] Start: 01-27-2018 End: 01-28-2018 Patient encounter procedure [facility] Start: 01-26-2018 End: 01-27-2018 Patient encounter procedure [facility] Start: 01-25-2018 End: 01-26-2018 Patient encounter procedure [facility] Start: 01-24-2018 End: 01-25-2018 Patient encounter procedure [facility] Start: 01-23-2018 End: 01-24-2018 Patient encounter procedure [facility] Start: 01-22-2018 End: 01-23-2018 Patient encounter procedure [facility] Start: 01-21-2018 End: 01-22-2018 Patient encounter procedure [facility] Start: 01-20-2018 End: 01-21-2018 Patient encounter procedure [facility] Start: 01-19-2018 End: 01-20-2018 Patient encounter procedure [facility] Start: 01-18-2018 End: 01-19-2018 Patient encounter procedure [facility] Start: 01-17-2018 End: 01-18-2018 Patient encounter procedure [facility] Start: 01-16-2018 End: 01-17-2018 Patient encounter procedure TINA A [facility] Start: 01-15-2018 End: 01-16-2018 [facility] Start: 01-14-2018 End: 01-15-2018 Patient encounter procedure TINA DEAN [facility] Start: 01-13-2018 End: 01-14-2018 Patient encounter [facility] Start: 01-12-2018 End: 01-13-2018 Patient encounter procedure [facility] Start: 01-11-2018 End: 01-12-2018 Patient encounter procedure TINA [facility] Start: 01-10-2018 End: 01-11-2018 Patient encounter procedure TINA [facility] Start: 01-09-2018 End: 01-10-2018 Patient encounter procedure TINA [facility] Start: 01-08-2018 End: 01-09-2018 Patient encounter procedure TINA [facility] Start: 01-07-2018 End: 01-08-2018 Patient encounter [facility] Start: 01-06-2018 End: 01-07-2018 Patient encounter procedure [facility] Start: 01-05-2018 End: 01-06-2018 Patient encounter procedure [facility] Start: 12-26-2017 End: 01-04-2018 Evaluation and management of inpatient [facility] Start: 12-25-2017 End: 12-25-2017 Emergency department patient visit [facility] Procedures Date Procedure Procedure Detail Performing Clinician Start: 03-20-2024 [employer] Sepideh yasir Villa [employer] HELPER Work Phone: Start: 03-10-2024 ALL CBC WITH AUTO DIFF Sonya Villa [employer]ER HELPER Work Phone: Start: 08-25-2022 Microscopic observat ion [Identifier] in Cervix by Cyto stain Sonya Villa [employer]ER HELPER Work Phone: Start: 04-24-2019 DISCHARGE PATIENT UNKNO [...] 01-04-2018 PULSE OXIMETRY, CONTINUOUS VERO Start: 01-04-2018 DISCHARGE PATIENT NAVNEET [facility] Start: 01-04-2018 NURSING COMMUNICATION Y ACOUB Start: 01-04-2018 INCENTIVE SPIROMETRY RT VERO Start: 01-04-2018 Basic metabolic pane l calcium total VERO Start: 01-04-2018 INCENTIVE SPIROMETRY RT VERO Start: 01-04-2018 INITIATE OXYGEN THER APY PROTOCOL Start: 01-04-2018 PULSE OXIMETRY, CONTINUOUS VERO Start: 01-04-2018 INCENTIVE SPIROMETRY RT VERO Start: 01-04-2018 Blood count complete auto&auto difrntl wbc VERO Start: 01-04-2018 INCENTIVE SPIROMETRY RT Start: 01-04-2018 INCENTIVE SPIROMETRY RT VERO Start: 01-04-2018 Culture bacterial bl ood aerobic w/id isolates Start: 01-04-2018 PULSE OXIMETRY, CONTINUOUS VERO Start: 01-04-2018 INCENTIVE SPIROMETRY RT Start: 01-04-2018 [...] RT VERO Start: 01-03-2018 NURSING COMMUNICATION Y [facility] Start: 01-03-2018 INCENTIVE SPIROMETRY RT Start: 01-03-2018 INCENTIVE SPIROMETRY RT VERO Start: 01-03-2018 INITIATE OXYGEN THER APY PROTOCOL Start: 01-03-2018 PULSE OXIMETRY, CONTINUOUS VERO Start: 01-03-2018 INCENTIVE SPIROMETRY RT Start: 01-03-2018 INCENTIVE SPIROMETRY RT Start: 01-03-2018 INCENTIVE SPIROMETRY RT VERO Start: 01-03-2018 PULSE OXIMETRY, CONTINUOUS Start: 01-03-2018 [...] RT VERO Start: 01-01-2018 NURSING COMMUNICATION Y ACOUB Start: 01-01-2018 INCENTIVE SPIROMETRY RT VERO Start: 01-01-2018 PULSE OXIMETRY, CONTINUOUS VERO Start: 01-01-2018 INCENTIVE SPIROMETRY RT VERO Start: 01-01-2018 INCENTIVE SPIROMETRY RT VERO Start: 01-01-2018 INITIATE OXYGEN THER APY PROTOCOL VERO Start: 01-01-2018 PULSE OXIMETRY, CONTINUOUS VERO Start: 01-01-2018 INCENTIVE SPIROMETRY RT VERO Start: 01-01-2018 Blood count complete auto&auto difrntl wbc VERO Start: 01-01-2018 INCENTIVE SPIROMETRY RT VERO Start: 01-01-2018 INCENTIVE SPIROMETRY RT VERO HD Start: 01-01-2018 PULSE OXIMETRY, CONTINUOUS VERO BAGHDY Start: 01-01-2018 INCENTIVE SPIROMETRY RT VERO Start: 01-01-2018 INCENTIVE SPIROMETRY RT VERO Start: 01-01-2018 PULSE OXIMETRY, CONTINUOUS VERO BAGHD Start: 01-01-2018 INCENTIVE SPIROMETRY RT VERO Start: 01-01-2018 INCENTIVE SPIROMETRY RT VERO Start: 12-31-2017 INCENTIVE SPIROMETRY RT VERO Start: 12-31-2017 PULSE OXIMETRY, CONTINUOUS VERO Start: 12-31-2017 INCENTIVE SPIROMETRY RT VERO Start: 12-31-2017 Fluoro central venou s access dev placement VERO Start: 12-31-2017 Insj prph cvc w/o house bq port/nib assembler age 5 yr/> VERO Start: 12-31-2017 Us vasc access sits vsl patency ndl entry VERO Start: 12-31-2017 INCENTIVE SPIROMETRY RT VERO Start: 12-31-2017 INCENTIVE SPIROMETRY RT VERO Start: 12-31-2017 PULSE OXIMETRY, CONTINUOUS VERO BAG Start: 12-31-2017 INCENTIVE SPIROMETRY RT VERO Start: 12-31-2017 INCENTIVE SPIROMETRY RT VERO Start: 12-31-2017 PULSE OXIMETRY, CONTINUOUS VERO HD Start: 12-31-2017 INCENTIVE SPIROMETRY RT VERO Start: 12-31-2017 INSERT PICC LINE VERO Start: 12-31-2017 MISCELLANEOUS NURSIN G CARE ORDER (SPECIFY) VERO BAGHD Start: 12-31-2017 NOTIFY PHYSICIAN (SPECIFY) VERO BAG Start: 12-31-2017 NURSING COMMUNICATION Y ACOUB Start: 12-31-2017 INCENTIVE SPIROMETRY RT VERO BAGHDY Start: 12-31-2017 INCENTIVE SPIROMETRY RT Start: 12-31-2017 INITIATE OXYGEN THER APY PROTOCOL Start: 12-31-2017 PULSE OXIMETRY, CONTINUOUS Start: 12-31-2017 Blood count complete auto&auto difrntl wbc Start: 12-31-2017 INCENTIVE SPIROMETRY RT Start: 12-31-2017 INCENTIVE SPIROMETRY RT Start: 12-31-2017 PULSE OXIMETRY, CONTINUOUS Start: 12-31-2017 INCENTIVE SPIROMETRY RT Start: 12-31-2017 INCENTIVE SPIROMETRY RT Start: 12-31-2017 Culture bacterial bl ood aerobic [...] Start: 12-30-2017 INCENTIVE SPIROMETRY RT Start: 12-30-2017 NURSING COMMUNICATION Y Start: 12-30-2017 Blood count complete auto&auto difrntl wbc VERO BAGHDY Start: 12-30-2017 Comprehensive metabo lic panel VERO BAGHDY Start: 12-30-2017 INCENTIVE SPIROMETRY RT [...] Start: 12-29-2017 IP CONSULT TO OTOLARYNGOLOGY VERO BAGY Start: 12-29-2017 Cul bact xcpt urine blood/stool aerobic isol VERO BAG Start: 12-29-2017 INCENTIVE SPIROMETRY RT VERO BAGHD Start: 12-29-2017 ACID FAST CULTURE WI TH SMEAR VERO Start: 12-29-2017 INCENTIVE SPIROMETRY RT VERO HD Start: 12-29-2017 PULSE OXIMETRY, CONTINUOUS VERO BAGHDY Start: 12-29-2017 CYTOLOGY, NON-BIRD TRAPPER YACOU B BAG Start: 12-29-2017 INCENTIVE SPIROMETRY RT VERO Start: 12-29-2017 INCENTIVE SPIROMETRY RT VERO Start: 12-29-2017 INITIATE OXYGEN THER APY PROTOCOL VERO Start: 12-29-2017 PULSE OXIMETRY, CONTINUOUS VERO BAGHDY [...] VERO Start: 12-29-2017 PULSE OXIMETRY, CONTINUOUS VERO BAGHDY Start: 12-29-2017 INCENTIVE SPIROMETRY RT VERO Start: 12-28-2017 INCENTIVE SPIROMETRY RT VERO HD Start: 12-28-2017 PULSE OXIMETRY, CONTINUOUS VERO BAGHDY Start: 12-28-2017 INCENTIVE SPIROMETRY RT VERO BAGHD Start: 12-28-2017 INCENTIVE SPIROMETRY RT VERO HD Start: 12-28-2017 INCENTIVE SPIROMETRY RT VERO BAGHD Start: 12-28-2017 PULSE OXIMETRY, CONTINUOUS VERO BAGHDY Start: 12-28-2017 INCENTIVE SPIROMETRY RT VERO BAGHD Start: 12-28-2017 INCENTIVE SPIROMETRY RT VERO BAGHDY Start: 12-28-2017 PULSE OXIMETRY, CONTINUOUS VERO BAGHDY Start: 12-28-2017 Blood count complete automated EVRO Start: 12-28-2017 INCENTIVE SPIROMETRY RT VERO BAGHDY Start: 12-28-2017 INCENTIVE SPIROMETRY RT VERO BAGHD Start: 12-28-2017 Radiologic exam ches t single view VERO BAG Start: 12-28-2017 INCENTIVE SPIROMETRY RT VERO BAGHD Start: 12-28-2017 INITIATE OXYGEN THER APY PROTOCOL VERO BAG Start: 12-28-2017 PULSE OXIMETRY, CONTINUOUS VERO BAGHDY Start: 12-28-2017 INCENTIVE SPIROMETRY RT VERO Start: 12-28-2017 INCENTIVE SPIROMETRY RT VERO BAGHD Start: 12-28-2017 PULSE OXIMETRY, CONTINUOUS VERO BAGHD Start: 12-28-2017 INCENTIVE SPIROMETRY RT VERO Start: 12-28-2017 INCENTIVE SPIROMETRY RT VERO Start: 12-28-2017 FULL CODE VERO BAG Start: 12-28-2017 NURSING COMMUNICATION Y ACOUB Start: 12-28-2017 PULSE OXIMETRY, CONTINUOUS VERO BAGHDY Start: 12-28-2017 VERIFY INFORMED CONSENT VERO Start: 12-28-2017 INCENTIVE SPIROMETRY RT VERO Start: 12-28-2017 INCENTIVE SPIROMETRY RT VERO Start: 12-27-2017 INCENTIVE SPIROMETRY RT VERO BAG Start: 12-27-2017 INCENTIVE SPIROMETRY RT VERO BAGHD Start: 12-27-2017 AMBULATE PATIENT VERO Start: 12-27-2017 ASSESS GAG REFLEX COU B Start: 12-27-2017 INITIATE OXYGEN THER APY PROTOCOL VERO BAG Start: 12-27-2017 TOBACCO CESSATION EDUCATION VERO Start: 12-27-2017 VITAL SIGNS VERO BAG HD Start: 12-27-2017 WOUND CARE VERO BAG HDY Start: 12-27-2017 ADVANCE DIET TOLE RATED (NURSING COMMUNICATION) VERO Start: 12-27-2017 INCENTIVE SPIROMETRY RT VERO Start: 12-27-2017 Echo transesophag r- t 2d w/prb img acquisj i&r VERO VIKI Start: 12-27-2017 INCENTIVE SPIROMETRY RT VERO Start: 12-27-2017 INCENTIVE SPIROMETRY RT VERO Start: 12-27-2017 IP CONSULT TO CARDIOLOGY VERO Start: 12-27-2017 IP CONSULT TO PAIN MANAGEMENT VERO Start: 12-27-2017 IP CONSULT TO INFECT IOUS DISEASES Start: 12-27-2017 INCENTIVE SPIROMETRY RT VERO Start: 12-27-2017 Echo tthrc r-t 2d w/wom-mode compl spec&colr d Start: 12-27-2017 INCENTIVE SPIROMETRY RT VERO Start: 12-27-2017 TTE w or wo fol wcon,Doppler Start: 12-27-2017 INCENTIVE SPIROMETRY RT Start: 12-27-2017 PREPARE RBC (CROSSMATCH) Start: 12-27-2017 TYPE AND SCREEN VERO Start: 12-27-2017 INCENTIVE SPIROMETRY RT Start: 12-27-2017 Blood count complete auto&auto difrntl wbc Start: 12-27-2017 Ferritin [Mass/volum e] in Serum or Plasma VERO Start: 12-27-2017 IRON AND TIBC VEROREG GILBERT Start: 12-27-2017 RETICULOCYTES VERO JAYNE GILBERT Start: 12-27-2017 INCENTIVE SPIROMETRY RT EVRO Start: 12-27-2017 INCENTIVE SPIROMETRY RT VERO Start: [...] VERO BAGHDY Start: 12-26-2017 ACID FAST CULTURE WI TH [...] TEENA FERNANDEZ Start: 12-25-2017 Prothrombin time TARA D JIM [...] for malign ant neoplasm of cervix HPV/Cotest [facility] Start: 08-26-2027 Screening for malign ant neoplasm of cervix [facility] Start: 04-24-2024 End: 04-24-2024 Patient encounter procedure 04/24/2024 3:00 PM EDT Office Visit [facility] [address] [place] [phone] Sonya Villa, BEATRIZ [address] [place] [phone] [facility] Start: 03-30-2024 End: 03-30-2024 Patient encounter procedure 03/30/2024 4:10 PM EST Office Visit [facility] [address] [facility] [address] [place] [phone] Rufino Cm DPM [address] [facility] [address] [place] [address] [facility] Start: 03-13-2024 End: 03-13-2024 Patient encounter procedure 03/13/2024 2:30 PM EST [facility] [address] [place] [phone] Sonya Villa, [employer] [address] [place] [phone] [facility] Start: 03-13-2024 End: 03-13-2025 25-hydroxyvitamin D3 [Mass/volume] in Serum or Plasma Vitamin D 25 hydroxy Lab Routine Fatigue, unspecified type Anemia, unspecified type Expected: 03/13/2024 (Approximate), Expires: 03/13/2025 [facility] Comment on above: Expected: 03/13/2024 (Approximate), Expires: 03/13/2025 Start: 03-13-2024 End: 03-13-2025 Cobalamin (Vitamin B12) [Mass/volume] in Serum or Plasma Vitamin B12 Lab Routine Fatigue, unspecified type Anemia, unspecified type Expected: 03/13/2024 (Approximate), Expires: 03/13/2025 [facility] Work Phone: Comment on above: Expected: 03/13/2024 (Approximate), Expires: 03/13/2025 Start: 03-13-2024 End: 03-13-2025 Ferritin [Mass/volume] in Serum or Plasma Ferritin Lab Routine Fatigue, unspecified type Anemia, unspecified type Expected: 03/13/2024 (Approximate), Expires: 03/13/2025 [facility] Comment on above: Expected: 03/13/2024 (Approximate), Expires: 03/13/2025 Start: 03-13-2024 End: 03-13-2025 Folate [Mass/volume] in Serum or Plasma Folate Lab Routine Fatigue, unspecified type Anemia, unspecified type Expected: 03/13/2024 (Approximate), Expires: 03/13/2025 [facility] Comment on above: Expected: 03/13/2024 (Approximate), Expires: 03/13/2025 Start: 03-13-2024 End: 03-13-2025 Iron + transferrin + TIBC Iron + transferrin + TIBC Lab Routine Fatigue, unspecified type Anemia, unspecified type Expected: 03/13/2024 (Approximate), Expires: 03/13/2025 [facility] Comment on above: Expected: 03/13/2024 (Approximate), Expires: 03/13/2025 Start: 03-13-2024 End: 03-13-2025 Measurement of occult blood in single stool specimen Occult blood x 1, stool Lab Routine Anemia, unspecified type Expected: 03/13/2024 (Approximate), Expires: 03/13/2025 [facility] Comment on above: Expected: 03/13/2024 (Approximate), Expires: 03/13/2025 Start: 12-28-2023 End: 12-28-2023 Patient encounter procedure 12/28/2023 3:30 PM EST Office Visit [facility] [address] [place] [address] Sonya Villa, [employer] [address] [place] [address] [facility] Start: 11-23-2023 End: 11-23-2023 Patient encounter procedure 11/23/2023 3:30 PM EDT [facility] [address] [place] [address] Sonya Villa, [employer] [address] [place] [address] Blood pressure elevated without history of HTN (Primary Dx); Morbid obesity (CMS/HCC) [facility] Comment on above: Blood pressure eleva yue without history of HTN (Primary Dx); Morbid obesity (CMS/HCC) Start: 11-23-2023 End: 11-22-2024 CBC W Auto Differential panel - Blood CBC and differential Lab Routine Blood pressure elevated without history of HTN Encounter for wellness examination in adult Expected: 11/23/2023 (Approximate), Expires: 11/22/2024 [facility] Comment on above: Expected: 11/23/2023 (Approximate), Expires: 11/22/2024 Start: 11-23-2023 End: 11-22-2024 Comprehensive metabolic 2000 panel - Serum or Plasma Comprehensive metabolic panel Lab Routine Blood pressure elevated without history of HTN Encounter for wellness examination in adult Expected: 11/23/2023 (Approximate), Expires: 11/22/2024 [facility] Comment on above: Expected: 11/23/2023 (Approximate), Expires: 11/22/2024 Start: 11-23-2023 End: 11-22-2024 Hemoglobin A1c/Hemoglobin.total in Blood Hemoglobin A1c Lab Routine Encounter for wellness examination in adult Expected: 11/23/2023 (Approximate), Expires: 11/22/2024 [facility] Comment on above: Expected: 11/23/2023 (Approximate), Expires: 11/22/2024 Start: 11-23-2023 End: 11-22-2024 Lipid 1996 panel - Serum or Plasma Lipid panel Lab Routine Encounter for wellness examination in adult Expected: 11/23/2023 (Approximate), Expires: 11/22/2024 [facility] Comment on above: Expected: 11/23/2023 (Approximate), Expires: 11/22/2024 Start: 11-23-2023 End: 11-22-2024 TSH W/REFLEX TO FT4 TSH W/REFLEX TO FT4 Lab Routine Blood pressure elevated without history of HTN Encounter for wellness examination in adult Expected: 11/23/2023 (Approximate), Expires: 11/22/2024 [facility] Work Phone: Comment on above: Expected: 11/23/2023 (Approximate), Expires: 11/22/2024 Start: 11-11-2023 End: 11-11-2023 Patient encounter procedure 11/11/2023 3:30 PM EDT Office Visit [facility] [address] [place] [address] Sonya Villa NP [address] [place] [address] [facility] Start: 10-17-2023 Influenza vaccination Influenza Vacc ine (#1) [facility] Comprehensive metabo lic 2000 panel - Serum or Plasma Comprehensive metabolic panel Lab Routine Primary hypertension (CMS/HCC) Ordered: 03/09/2024 [facility] Work Phone: Comment on above: Ordered: 03/09/2024 Immunizations Immunization Date Immunization Notes Care Provider Segundo [email or web address] 03-11-2018 influenza, injectabl e, quadrivalent, contains preservative Sonya Dorantrick [employer] Work Phone: [facility] 03-11-2018 influenza virus vaccine, unspecified formulation Sonya Dorantrick [employer] Work Phone: [facility] Payers Date Payer Category Payer Unknown 2022 Medicaid [id number] 2018 Medicaid [id number] 2017 Medicaid ACUTE 04-15-2016 Medicaid [id number] 1985 Unknown [id number] 2.16.84 0.1.413715.3.579.2.185 1985 Unknown [id number] 2.16.8 40.1.238131.3.579.2.182 1985 Unknown [id number] 2.16. 840.1.092076.3.579.2.732 1985 Unknown [id number] 2.16.84 0.1.090529.3.579.2.593 1985 Unknown [id number] 2.16.84 0.1.249792.3.579.2.593 1985 Unknown [id number] 2.16.84 0.1.633142.3.579.2.593 1985 Unknown [id number] 2.16.84 0.1.388957.3.579.2.593 1985 Unknown [id number] 2.16.84 0.1.627637.3.579.2.593 1985 Unknown [id number] 2.16. 840.1.936021.3.579.2.196 1985 Unknown [id number] 2.16. 840.1.175421.3.579.2.196 1985 Unknown [id number] 2.16. 840.1.988775.3.579.2.196 1985 Unknown [id number] 2.16.84 0.1.068811.3.579.2.9 1985 Unknown [id number] 2.16.84 0.1.432609.3.579.2.1258 1985 Unknown [id number] 2.16.84 0.1.008416.3.579.2.1258 1985 Unknown [id number] 2.16.84 0.1.996570.3.579.2.1258 1985 Unknown [id number] 2.16.84 0.1.637934.3.579.2.1258 1985 Unknown [id number] 2.16.84 0.1.690861.3.579.2.1258 1985 Unknown [id number] 2.16.84 0.1.492286.3.579.2.1258 1985 Unknown [id number] 2.16.84 0.1.649782.3.579.2.1258 1985 Unknown [id number] 2.16.84 0.1.220995.3.579.2.1258 1985 Unknown [id number] 2.16.84 0.1.060426.3.579.2.1258 1985 Unknown [id number] 2.16.84 0.1.294823.3.579.2.1259 02-15-1959 Unknown [id number] Self-pay Unknown [id number] 2.16.8 40.1.797182.3.579.2.355 Social History Date Type Detail Facility Start: 08-12-2023 Tobacco smoking stat [facility] Occasional tobacco smoker [facility] History of tobacco use Cigarette Smoker [facility] History of tobacco use Passive smoker [facility] Start: 08-12-2023 Tobacco use and exposure Smokeless t obacco non-user [facility] Start: 10-11-2023 End: 03-13-2024 Alcoholic beverage intake Ex-drinker (finding) [facility] Start: 10-11-2023 End: 03-13-2024 History of Social function [facility] Start: 10-11-2023 End: 03-13-[address] [facility] Start: 07-25-2022 Tobacco Comment Thinking about quitt ing [facility] Start: 1985 Sex assigned at Not on file [facility] Clinical Notes 10-11-2023 to 03-13-2024 Sonya Villa, [employer] - 03/13/2024 3:07 PM Mejia Villa, [employer] - 03/13/2024 3:06 PM Mejia Villa, [employer] - 03/13/2024 3:02 PM Mejia Villa, [employer] - 03/13/2024 2:30 PM EST Note Date [...] ER with fever/chills/redness/swelling. Associated Problem(s): Primary hypertension (CMS/HCC) Currently taking hydrochlorothiazide 12.5mg and Losartan 25mg. [...] D 25 hydroxy documented in this encounter [facility] 03-13-2024 Instructions Sonya Villa NP - 03/13/2024 2:30 PM EST Continue and finish antibiotics as directed. Continue using Mupirocin ointment. Continue checking BP once daily in the afternoon. Call my office in 2 weeks with blood pressure readings. Have blood work completed. This is NON-fasting! documented in this encounter [facility] 03-09-2024 History of Presen t illness [...] Comprehensive metabolic panel documented in this encounter [facility] 03-09-2024 Instructions Sonya Villa NP - [...] your next visit. documented in this encounter [facility] 11-23-2023 History of Presen t illness Narrative Associated Problem(s): Opioid use disorder in remission Follows with [employer]. Was seeing Hope Jimenez. Currently takes Suboxone [...] y.o. female who presents for Follow-up (From [facility] ). HPI 10 months post Is [...] 1 % cream Opioid abuse, in remission ([facility]) documented in this encounter [facility] 11-23-2023 Instructions Sonya Villa NP - [...] black coffee ok. documented in this encounter [facility] 10-11-2023 History of Presen t illness [...] management - Primary Pt meets qualifications of [facility] 4730-12-19 for weight loss. BMI>30 or [...] sleep per night. documented in this encounter [facility] 10-11-2023 Instructions Sonya Villa NP - 10/11/2023 [...] day. Consider tracking your food intake on [employer] or [employer] Water: Increase water intake; GOAL [...] Call about Acupuncture!!! documented in this encounter [facility] Evaluation note Diagnosis Blood pressure elevated without history of HTN- Primary Morbid obesity ([facility]) Morbid obesity Encounter for wellness examination in adult Tinea pedis of both feet Opioid abuse, in remission ([facility]) Opioid abuse, in remission documented in this encounter [facility] note* Diagnosis URTI (acute upper respiratory [...] of both feet Opioid abuse, in remission ([facility]) Opioid abuse, in remission Acute non-recurrent frontal [...] of both feet Opioid abuse, in remission ([facility]/HCC) Opioid abuse, in remission Acute paronychia of [...] section and content) DATE CREATED AUTHOR 02/04/2018 [facility] DATE CREATED AUTHOR AUTHOR'S ORGANIZ ATION 02/19/2018 [facility] DATE CREATED AUTHOR AUTHOR'S ORGANIZ ATION 05/02/2018 [facility] DATE CREATED AUTHOR AUTHOR'S ORGANIZ ATION 03/15/2021 [facility] DATE CREATED AUTHOR AUTHOR'S ORGANIZ ATION 06/29/2022 [facility] DATE CREATED AUTHOR AUTHOR'S ORGANIZ ATION 07/25/2022 [facility] DATE CREATED AUTHOR AUTHOR'S ORGANIZ ATION 03/14/2024 [facility] EPIC Care Teams (unrecognized sec tion and content) [employer] Relationship Specialty Start Date End Date Navarro Haider MD [address] [place] [address] PCP - General Family Medicine 09/15/23 Sonya Villa NP [address] [place] [address] Nurse Practitioner Family Medicine 09/15/23 [employer] Relationship Specialty Start Date End Date Navarro Haider MD [address] [place] [address] PCP - General Family Medicine 09/15/23 Sonya Villa NP [address] [place] [address] Nurse Practitioner Family Medicine 09/15/23 [employer] Relationship Specialty Start Date End Date Navarro Haider MD [address] [place] [phone] PCP - General Family Medicine 09/15/23 Sonya Villa NP [address] [place] [address] Nurse Practitioner Family Medicine 09/15/23 [employer] Relationship Specialty Start Date End Date Navarro Haider MD [address] [place] [phone] PCP - General Family Medicine 09/15/23 Sonya Villa NP [address] [place] [address] Nurse Practitioner Family Medicine 09/15/23 Gun F[employer] Relationship Specialty Start Date End Date Navarro Haider MD [address] [place] [address] PCP - General Family Medicine 09/15/23 Sonya Villa NP [address] [place] [address] Nurse Practitioner Family Medicine 09/15/23 [employer] Relationship Specialty Start Date End Date Navarro Haider MD [address] [place] [address] PCP - General Family Medicine 09/15/23 Sonya Villa NP [address] [place] [address] Nurse Practitioner Family Medicine 09/15/23 [employer] Relationship Specialty Start Date End Date Navarro Haider MD [address] [place] [phone] PCP - General Family Medicine 09/15/23 Sonya Villa NP [address] [place] [address] Nurse Practitioner Family Medicine 09/15/23 [employer] Relationship Specialty Start Date End Date Navarro Haider MD [address] [place] [phone] PCP - General Family Medicine 09/15/23 Sonya Villa NP [address] [place] [address] Nurse Practitioner Family Medicine 09/15/23 [employer] Relationship Specialty Start Date End Date Navarro Haider MD [address] [place] [phone] PCP - General Family Medicine 09/15/23 Sonya Villa NP [address] [place] [address] Nurse Practitioner Family Medicine 09/15/23 Reason for [...] BE BASED ON THE PRIMARY CLINICAL RECORDS. [address] provides no warranty or guarantee of the accuracy or completeness of information in this document.
[2024-03-21 17:07] LABS: Internal Control Within Normal Limits; Occult Blood Positive
== END 2024-03-21 16:22 | disposition home or self-care (01) ==
LOC: LAB 16:21
DX: R53.83 Other fatigue (principal); D64.9 Anemia, unspecified
CPT/HCPCS: G0328

== ENCOUNTER 2024-07-16 19:24 | Emergency (ER) | payer MEDICAID, SELFPAY ==
--- OUTSIDE RECORDS SUMMARY | 2013-10-10 14:00 | XMS_ITS | Encounter Summary ---
Author Organization [facility] Address [address] [place] [address] Care Team Providers Care Sales Recruitment Specialist Name Role Phone Unavailable Primary Care Provider Unavailabl e Encounter Details Date Type Department Care Team (Late st Contact Info) Description 10/10/2013 2:00 PM EDT Hospital Encounter [facility] Ultrasound [address] [place] [address] Adonay Gordillo MD [address] [place] [address] Social History Tobacco Use Types Packs/Day Years [...] Comment:MRSA respiratory culture on 12/29/2017. endocarditis at [facility] in [place] approximately 6 months ago. 12/29/2017 12/27/2017 documented as of this encounter
--- OUTSIDE RECORDS SUMMARY | 2014-10-12 08:00 | XMS_ITS | Encounter Summary ---
Author Organization [facility] Address [address] [place] [address] Care Team Providers Care Marionette Performer Name Role Phone Unavailable Primary Care Provider Unavailabl e Encounter Details Date Type Department Care Team (Late st Contact Info) Description 10/12/2014 8:00 AM EDT Hospital Encounter [facility] [address] [place] [address] [phone] Adonay Gordillo MD [address] [place] [phone] Social History Tobacco Use Types Packs/Day Years [...] Comment:MRSA respiratory culture on 12/29/2017. endocarditis at [facility] in [place] approximately 6 months ago. 12/29/2017 12/27/2017 documented as of this encounter
--- OUTSIDE RECORDS SUMMARY | 2015-02-11 16:00 | XMS_ITS | Encounter Summary ---
Author Organization [facility] Address [address] [place] [address] Care Team Providers Care Pipe And Boiler Covers Supervisor Name Role Phone Unavailable Primary Care Provider Unavailabl e Encounter Details Date Type Department Care Team (Late st Contact Info) Description 02/11/2015 3:00 PM [facility] Hospital Encounter MTH PRE ADMIT [address] [place] [address] Adonay Gordillo MD [address] [address] [place] [phone] Social History Tobacco Use Types Packs/Day Years [...] Comment:MRSA respiratory culture on 12/29/2017. endocarditis at [facility] in [place] approximately 6 months ago. 12/29/2017 12/27/2017 documented as of this encounter
--- OUTSIDE RECORDS SUMMARY | 2018-04-28 05:00 | XMS_ITS | Continuity of Care Document ---
Author Organization [facility] Address [address] [place] [address] Phone Care Team Providers Care Final Block Press Operator Name Role Phone Pool [place] Unavailable Unavailable [...] Limited Oral Eval Intraoral-periapical 1st Film 9 [id number] Additional Apr Tobacco Counseling Oral Hygiene Instruction Advance Directives Directive Yes / No Effective Date File Name No Information Encounters Encounter Description Practice Location Reason(s) For Visit Diagnoses Date Provider Providers Copied on Encounter [facility], [address] [place] [address], [id number], [place] tel:[phone] Dental Clinic extraction (chief complaint) Encounter for screening for dental disorders 9 Rosa Elena Lanza. [address] [place], [place], [id number] , [place]. tel:[phone] [facility], [address] [place] [address], [id number], [place] tel:[phone] [facility] cervical spine (chief complaint)ce rvical spine (chief complaint) Segmental and somatic dysfunction of cervical regionCervicalgi aRadiculopathy, cervical regionSegmental and somatic dysfunction of thoracic region 9 Yaw Pineda. [address] [place] [address], [id number] , [place]. tel:[phone] [facility], [address] [place] [address], [id number], [place] tel:[phone] Dental Clinic Dental Limited (chief complaint) Encounter for screening for dental disorders 9 Jackelyn Marshall. [address] [place] [address], [id number] , [place]. tel:[phone] Family History Family Member Type Diagnosis Age At Onset Father Problem (finding) Mother Problem (finding) hypertension Mother Problem (finding) Alive and well Payers Payer name Insurance type Covered green party ID Ophelia phillips(s) D Medicaid Primary [facility] [id number] Social History Type Description Quantity Date Captured [...]
--- OUTSIDE RECORDS SUMMARY | 2024-07-13 14:40 | XMS_ITS | Encounter Summary ---
Author Organization [facility] Address [address] [place] [address] Care Team Providers Care Auger Machine Offbearer Name Role Phone Navarro Haider MD Primary Care Provider [phone] [place] FIBER OPTIC SPLICER Unavailable [phone] Reason for Visit * Reason Comments Follow-up Lesion check Encounter Details Date Type Department Care Team ([facility] Contact Info) Description 07/13/2024 2:40 PM EDT Office Visit [facility] [address] [facility] [address] [place] [phone] Rufino Cm DPM [address] [facility] 5 [place] [address] Verruca plantaris (Primary Dx); Foot pain, right Social History Tobacco Use Types Packs/Day Years Used Date Smoking Tobacco: Some Days Cigarettes Passive Smoke Exposure: Current Smokeless Tobacco: Never Tobacco Cessation:Ready to Q uit: Not Asked; Counseling Given: Yes Comments:Thinking about quitting Alcohol Use Standard Drinks/Week Comments Not Currently 0 (1 standard drink = 0.6 oz pur e alcohol) PHQ-2 Answer Date Recorded Patient Health Questionnaire-2 Score 0 10/11/2023 Comments Unknown Sex and Gender Information Value Date Recorded Sex Assigned at Not on file Legal Sex Female 6:40 PM EDT Gender Identity Not on file Sexual Orientation Not on file documented as of this encounter Last Filed Vital Signs Vital Sign Reading Time Taken Comments Blood Pressure - - Pulse - - Temperature - - Respiratory Rate 18 07/13/2024 2:56 PM EDT Oxygen Saturation - - Inhaled Oxygen Concentration - - Weight 142 kg (314 lb) 07/13/2024 2:56 PM EDT Height 172.7 cm (5' 8 ) 07/13/2024 2:56 PM EDT Body Mass Index 47.74 07/13/2024 2:56 PM EDT documented in this encounter Progress Notes * Rufino Cm, DPM - 07/13/2024 2:40 PM EDT Patient: Alesha Kenney : 1985 PCP: Navarro Haider MD SUBJECTIVE Pt presents today for follow up of skin lesion/neoplasm of unknown origin to the right foot Pt states that previous treatment of acid tx with some improvement Pt rates pain the pain on a 1-10 scale an intensity of 3 Pt presents today for followup. Allergies: Allergies Allergen Reactions Vancomycin Anaphylaxis Lips swell cant breath Bactrim Ds [Sulfamethoxazole-Trimethoprim] Codeine Other Reaction(s): Unknown Hydrocodone-Acetaminophen Unknown Penicillin G Other Reaction(s): SOB/ITCHING Penicillins Tramadol Unknown Past Medical History: Past Medical History: Diagnosis Date Allergies Endocarditis Endometriosis Gestational diabetes Hepatitis C (CMS/HCC) History of endocarditis in adulthood Obesity, morbid (CMS/HCC) Opioid abuse Substance abuse Tobacco user Medications: Current Outpatient Medications: albuterol HFA 90 mcg/act inhaler, Inhale 2 puffs every 4 (four) hours if needed for wheezing or shortness of breath, Disp: 18 g, Rfl: 2 Buprenorphine HCl-Naloxone HCl (Suboxone) 8-2 MG SL film, Place 2 Film under the tongue Daily, Disp: , Rfl: cholecalciferol (Vitamin D-3) 20 MCG (800 UNIT) tablet, Take 1 tablet (20 mcg) by mouth Daily, Disp: 90 tablet, Rfl: 0 etonogestrel-eluting (Nexplanon) 68 mg contraceptive implant, 1 each by Implant route 1 (one) time,Disp: , Rfl: fluticasone (Flonase) 50 MCG/ACT nasal spray, Administer 2 sprays into each nostril in the morning.Shake gently. Before first use, prime pump. After use, clean tip and replace cap.., Disp: 16 g, Rfl: 2 folic acid (Folvite) 1 MG tablet, Take 1 tablet (1 mg) by mouth Daily, Disp: 30 tablet, Rfl: 11 hydroCHLOROthiazide (HYDRODiuril) 12.5 MG tablet, Take 1 tablet (12.5 mg) by mouth Daily, Disp: 30 tablet, Rfl: 11 losartan (Cozaar) 25 MG tablet, Take 1 tablet (25 mg) by mouth Daily, Disp: 30 tablet, Rfl: 11 mupirocin (Bactroban) 2 % ointment, APPLY TOPICALLY IN THE MORNING AND BEFORE BEDTIME FOR 5 DAYS, Disp: , Rfl: naloxone (Narcan) 4 mg/0.1 mL nasal spray, Administer 4 mg into affected nostril(s) if needed, Disp: , Rfl: phentermine (Adipex-P) 37.5 MG tablet, Take 1 tablet (37.5 mg) by mouth in the morning. Take beforemeals., Disp: 30 tablet, Rfl: 0 Social History: Social History Socioeconomic History Marital status: Spouse name: Not on file Number of children: Not on file Years of education: Not on file Highest education level: Not on file Occupational History Not on file Tobacco Use Smoking status: Some Days Types: Cigarettes Passive exposure: Current Smokeless tobacco: Never Tobacco comments: Thinking about quitting Vaping Use Vaping status: Every Day Substances: Nicotine, Flavoring Devices: Pre-filled or refillable cartridge Passive vaping exposure: Yes Substance and Sexual Activity Alcohol use: Not Currently Drug use: Yes Types: Other Comment: Opioid abuse: suboxone Sexual activity: Defer control/protection: None Other Topics Concern Not on file Social History Narrative Not on file Social Drivers of Health Financial Resource Strain: Not on file Food Insecurity: No Food Insecurity (09/22/2022) Received from [facility] Hunger Screening Within the past 12 months we worried whether our food would run out before we got money to buy more.: Never True Within the past 12 months the food we bought just didn't last and we didn't have money to get more.: Never True Transportation Needs: Not on file Physical Activity: Not on file Stress: Not on file Social Connections: Not on file Intimate Partner Violence: Not on file Housing Stability: Not on file ROS: GI: denies loose or watery stool on antibiotic OBJECTIVE LE EXAM: DERM: Positive hair growth to b/l feet with good skin turgor noted. Negative openings in skin. Nummular lesion measuring at the right sub 2nd metatarsal region measuring 0.1 cm x 0.2 cm. VASC: Palpable pedal pulsed b/l with warm to cool tibia to toes b/l NEURO: Gross sensation intact digits 1-10 and b/l feet ORTHO: +5/5 DF/PF/IN/EV right, +5/5 DF/PF/IN/EV left. 20 degrees inversion and 10 degrees eversion STJ b/l. Ankle ROM less than 10 degrees b/l. Positive pain on palpation to right foot lesion XRAY: US: ASSESSMENT 1. Verruca plantaris 2. Foot pain, right PLAN Application of salinocaine acid medication to lesion/lesions located at right foot Informed pt of risks and benefits of procedure including high reoccurence rate, infection, pain andconsent given. Application of DSD post procedure. Rufino Cm DPM documented in this encounter Plan of Treatment Upcoming Encounters Date Type Department Care Team (Late st Contact Info) Description 07/27/2024 4:00 PM EDT Office Visit [facility] [address] [facility] [address] [place] [phone] Rufino Cm DPM [address] [facility] 5 [place] [address] 08/17/2024 2:45 PM EDT Office Visit [facility] [address] [place] [phone] Navarro Haider MD [address] [place] [address] documented as of this encounter Visit Diagnoses Diagnosis Verruca plantaris- Primary Plantar wart Foot pain, right Pain in soft tissues of limb documented in this encounter Care Teams Auger Machine Offbearer Relationship Specialty Start Date End Date Navarro Haider MD [address] [place] [phone] PCP - General Family Medicine 09/15/23 [place] NP [address] [place] [address] Nurse Practitioner Family Medicine 09/15/23 documented as of this encounter
[2024-07-16 19:27] VITALS: BP 168/108; PULSE 99; TEMP 37; O2SAT 99; BMI 51.8
--- OUTSIDE RECORDS SUMMARY | 2024-07-16 19:29 | XMS_ITS | Encounter Summary ---
Author Organization [facility] Address [address] [place] [address] Care Team Providers Care Clinical Veterinarian Name Role Phone [place] APRN - COMMUNITY AMBASSADOR Primary Care Pro vider Reason for Visit * Reason Comments Medication Refill Encounter Details Date Type Department Care Team (Late st Contact Info) Description 01/13/2015 Refill [facility] [place] [address] [place] [phone] Adonay Gordillo MD [address] [place] [address] [address] Medication Refill Social History Tobacco Use Types Packs/Day Years Used Date Smoking Tobacco: Every Day Cigarettes Alcohol Use Standard Drinks/Week Comments No 0 (1 standard drink = 0.6 oz pur e alcohol) Comments No Sex and Gender Information Value [...] Comment:MRSA respiratory culture on 12/29/2017. endocarditis at [facility] in [place] approximately 6 months ago. 12/29/2017 12/27/2017 documented as of this encounter Care Teams Clinical Veterinarian Relationship Specialty Start Date End Date [place] APRN - COMMUNITY AMBASSADOR [address] [place] [address] PCP - General Nurse Practitioner 05/11/24 documented as of this encounter
--- OUTSIDE RECORDS SUMMARY | 2024-07-16 19:29 | XMS_ITS | Encounter Summary ---
Author Organization [facility] Address [address] [place] [address] Care Team Providers Care Seam Finisher Name Role Phone [place] APRN - HUMAN RESOURCE ADVISER Primary Care Pro vider Reason for Visit * Reason Comments Medication Refill Encounter Details Date Type Department Care Team (Late st Contact Info) Description 12/21/2014 Refill [facility]EL[facility] [place] [address] [place] [phone] Adonay Gordillo MD [address] [place] [address] [address] Medication Refill Social History Tobacco [...] Comment:MRSA respiratory culture on 12/29/2017. endocarditis at [facility] in [place] approximately 6 months ago. 12/29/2017 12/27/2017 documented as of this encounter Care Teams Seam Finisher Relationship Specialty Start Date End Date [place] APRN - HUMAN RESOURCE ADVISER [address] [place] [address] PCP - General Nurse Practitioner 05/11/24 documented as of this encounter
--- OUTSIDE RECORDS SUMMARY | 2024-07-16 19:29 | XMS_ITS | Encounter Summary ---
Author Organization [facility] Address [address] [place] [address] Care Team Providers Care Mulling Machine Operator Name Role Phone Navarro Haider MD Primary Care Provider [phone] [place] NP Unavailable [phone] Reason for Referral * Consultation (Routine) - Authorized Specialty Diagnoses / Procedures Referred By Carmen pham Referred To Contact Gastroenterology Diagnoses Positive occult stool blood test Procedures [place] OFFICE/OUTPATIENT NEW HIGH MDM 60 MINUTES [place] NP [address] [place] [address] fax: Angeles Sampson MD [address] [place] [phone] Phone: tel: fax: Referral ID Status Reason Start Date Expiration Date Visits Requested Visits Authorized [id number] Authorized Specialty Services Required 03/23/2024 09/19/[address] Angeles Sampson [place], [place] [phone] Encounter Details Date Type Department Care Team (Late st Contact Info) Description 03/23/2024 Orders Only [facility] [address] [place] [address] [place] NP Positive occult stool blood test (Primary Dx) Social History Tobacco Use Types Packs/Day Years Used Date Smoking Tobacco: Some Days Cigarettes Passive Smoke Exposure: Current Smokeless Tobacco: Never Comments:Thinking about quit ting Alcohol Use Standard Drinks/Week Comments Not Currently [...] as of this encounter Plan of Treatment Upcoming Encounters Date Type Department Care Team (Late st Contact Info) Description 07/27/2024 4:00 PM EDT Office Visit [facility] 112 [facility] [address] [place] [phone] Rufino Cm, DPClemencia 3006 [facility] 5 [place] [address] 08/17/2024 2:45 PM EDT Office Visit [facility] [address] [place] [address] Navarro Haider MD [address] [place] [phone] Scheduled Referrals Name Type Priority Associated Diagnoses Order Schedule Ambulatory referral to Gastroenterology Outpatient Referral Routine Positive occult stool blood test Expected: 03/23/2024 (Approximate), Expires: 09/20/2024 documented as of this encounter Visit Diagnoses Diagnosis Positive occult stool blood test- Primary Nonspecific abnormal finding in stool contents documented in this encounter Care Teams Mulling Machine Operator Relationship Specialty Start Date End Date Navarro Haider MD [address] [place] [phone] PCP - General Family Medicine 09/15/23 [place] NP [address] [place] [address] Nurse Practitioner Family Medicine 09/15/23 documented as of this encounter
--- OUTSIDE RECORDS SUMMARY | 2024-07-16 19:29 | XMS_ITS | Encounter Summary ---
Author Organization [facility] Address [address] [place] [address] Care Team Providers Care Marketing Analyst Name Role Phone [place] APRN - BEATRIZ Primary Care Pro vider Encounter Details Date Type Department Care Team (Late st Contact Info) Description 05/01/2016 FollowUp Telephone Encounter [facility] Car 2- Stepdown [address] [place] [address] Prem Kramer RN Social History Tobacco Use Types Packs/Day Years Used Date Smoking Tobacco: Some Days Cigarettes Alcohol Use Standard Drinks/Week Comments No [...] Comment:MRSA respiratory culture on 12/29/2017. endocarditis at [facility] in [place] approximately 6 months ago. 12/29/2017 12/27/2017 documented as of this encounter Care Teams Marketing Analyst Relationship Specialty Start Date End Date [place] APRN - NP [address] [place] [phone] PCP - General Nurse Practitioner 05/11/24 documented as of this encounter
--- OUTSIDE RECORDS SUMMARY | 2024-07-16 19:29 | XMS_ITS | Encounter Summary ---
Author Organization [facility] Address [address] [place] [address] Care Team Providers Care Pollution Control Technician Name Role Phone Shaikh LINDA Garland Primary Care Provider [phone] Navarro Haider MD Primary Care Provider [phone] [place] RESOURCE DEVELOPMENT MANAGER Unavailable [phone] Encounter Details Date Type Department Care Team (Late st Contact Info) Description 09/13/2023 Orders Only [facility] [address] [place] [address] Shaikh Garland MD [address] [place] [phone] Social History Tobacco Use Types Packs/Day Years Used Date Smoking Tobacco: Some Days Cigarettes Passive Smoke Exposure: Current Smokeless Tobacco: Never Comments:Thinking about quit ting Alcohol Use Standard Drinks/Week Comments Not Currently 0 (1 standard drink = 0.6 oz pur e alcohol) PHQ-2 Answer Date Recorded Patient Health Questionnaire-2 Score 0 08/12/2023 Comments Unknown Sex and Gender Information Value Date Recorded Sex Assigned at Not on file Legal Sex Female 6:40 PM EDT Gender Identity Not on file Sexual Orientation Not on file documented as of this encounter Plan of Treatment Upcoming Encounters Date Type Department Care Team (Late st Contact Info) Description 07/27/2024 4:00 PM EDT Office Visit [facility] [address] [address] [place] [phone] Rufino Cm DPM [address] [address] 08/17/2024 2:45 PM EDT Office Visit [facility] [address] [place] [address] Navarro Haider MD [address] [place] [address] documented as of this encounter Visit Diagnoses Not on filedocumented in this encounter Care Teams Pollution Control Technician Relationship Specialty Start Date End Date Shaikh Garland MD [address] [place] [address] PCP - General Internal Medicine 04/19/23 09/14/23 Navarro Haider MD [address] [place] [address] PCP - General Family Medicine 09/15/23 [place] NP [address] [place] [address] Nurse Practitioner Family Medicine 09/15/23 documented as of this encounter
--- OUTSIDE RECORDS SUMMARY | 2024-07-16 19:29 | XMS_ITS | Encounter Summary ---
Author Organization [facility] Address [address] [place] [address] Care Team Providers Care Divisional Human Resources Director Name Role Phone Navarro Haider MD Primary Care Provider [phone] [place] CRITICAL CARE TRANSPORT NURSE Unavailable [phone] Encounter Details Date Type Department Care Team (Latest Contact Info) Description 07/13/2024 Travel Social History Tobacco Use Types Packs/Day Years [...] EDT Office Visit [facility] 112 [facility] [address] [place] [phone] Rufino Cm DPM 3006 [facility] 5 [place] [address] 08/17/2024 2:45 PM EDT Office Visit [facility] [address] [place] [phone] Navarro Haider MD [address] [place] [address] documented as of this encounter Visit Diagnoses Not on filedocumented in this encounter Care Teams Divisional Human Resources Director Relationship Specialty Start Date End Date Navarro Haider MD [address] [place] [address] PCP - General Family Medicine 09/15/23 [place] NP [address] [place] [address] Nurse Practitioner Family Medicine 09/15/23 documented as of this encounter
--- OUTSIDE RECORDS SUMMARY | 2024-07-16 19:29 | XMS_ITS | Encounter Summary ---
Author Organization [facility] Address [address] [place] [address] Care Team Providers Care Ppap Coordinator Name Role Phone [place] APRN - BEATRIZ Primary Care Pro vider Reason for Visit * Reason Comments Other Encounter Details Date Type Department Care Team ([facility] Contact Info) Description 03/16/2014 Refill [facility] PROGRAM ELIGIBILITY SPECIALIST [facility] [place] [address] [place] [address] Adonay Gordillo MD [address] [place] [address] Dr Silver [address] [place] [phone] Other Social History Tobacco Use Types Packs/Day Years [...] Comment:MRSA respiratory culture on 12/29/2017. endocarditis at [facility] in [place] approximately 6 months ago. 12/29/2017 12/27/2017 documented as of this encounter Care Teams Ppap Coordinator Relationship Specialty Start Date End Date [place] APRN - NP [address] [facility] [place] [address] PCP - General Nurse Practitioner 05/11/24 documented as of this encounter
--- OUTSIDE RECORDS SUMMARY | 2024-07-16 19:30 | XMS_ITS | Clinical Summary ---
Author Organization [facility] Address [address] [place] [address] Care Team Providers Care Manager Risk Management Name Role Phone Navarro Haider MD Primary Care Provider [phone] Vida Villa CAFETERIA WORKER Unavailable [phone] Allergies Active Allergy Reactions Criticality Noted Date Comments Sulfamethoxazole-Trimethopri m 08/12/2023 Ciprofloxacin 07/11/2024 Codeine 07/28/2022 Other Reaction(s): Unknown Hydrocodone-Acetaminophen Unknown 10/20/2012 Penicillin G 12/29/2022 Other Reaction(s): SOB/ITCHING Penicillins 07/28/2022 Tramadol Unknown 10/20/2012 Vancomycin Anaphylaxis High 12/26/2017 Lips swell cant breath Medications etonogestrel-elu ting (Nexplanon) 68 mg contraceptive implant 1 each by Implant route 1 (one) time Active fluticasone (Flonase) 50 MCG/ACT nasal sprayIndications :Acute cough,Chronic allergic rhinitis Administer 2 sprays into each nostril in the morning. Shake gently. Before first use, prime pump. After use, clean tip and replace cap.. 16 g 2 04/05/19 24 Active Buprenorphine HCl-Naloxone HCl (Suboxone) 8-[address] 2 Film under the tongue Daily 05/03/19 24 Active hydroCHLOROthiaz mandeep (HYDRODiuril) 12.5 MG tabletIndication s:Blood pressure elevated without history of HTN Take 1 tablet (12.5 mg) by mouth Daily 30 tablet 11 11/23/19 24 2024 Active naloxone (Narcan) 4 mg/0.1 mL nasal spray Administer 4 mg into affected nostril(s) if needed 03/02/19 25 Active losartan (Cozaar) 25 MG tabletIndication s:Primary hypertension (CMS/HCC) Take 1 tablet (25 mg) by mouth Daily 30 tablet 03/09/19 25 2025 Active folic acid (Folvite) 1 MG tabletIndication s:Anemia due to folic acid deficiency, unspecified deficiency type Take 1 tablet (1 mg) by mouth Daily 30 tablet 03/21/19 25 2025 Active mupirocin (Bactroban) 2 % ointment APPLY TOPICALLY IN THE MORNING AND BEFORE BEDTIME FOR 5 DAYS 03/09/19 25 Active cholecalciferol (Vitamin D-3) 20 MCG (800 UNIT) tabletIndication s:Vitamin D deficiency Take 1 tablet (20 mcg) by mouth Daily 90 tablet 06/20/19 25 Active phentermine (Adipex-P) 37.5 MG tabletIndication s:Class 3 severe obesity due to excess calories with serious comorbidity and body mass index (BMI) of 45.0 to 49.9 in adult,Encounter for weight management Take 1 tablet (37.5 mg) by mouth in the morning. Take before meals. 30 tablet 06/27/19 25 2024 Active nitrofurantoin, macrocrystal-mon ohydrate, (Macrobid) 100 MG capsuleIndicatio ns:Urinary tract infection without hematuria, site unspecified Take 1 capsule (100 mg) by mouth in the morning and 1 capsule (100 mg) before bedtime. Do all this for 7 days. 14 capsule 07/12/19 25 2024 Active albuterol HFA 90 mcg/act inhalerIndicatio ns:URI, acute Inhale 2 puffs every 4 (four) hours if needed for wheezing or shortness of breath 18 g 2 07/14/19 25 Active cholecalciferol (Vitamin D-3) 20 MCG (800 UNIT) tabletIndication s:Vitamin D deficiency Take 1 tablet (20 mcg) by mouth Daily 90 tablet 03/21/19 25 2024 Discontinued(R eorder) doxycycline (Vibra-Tabs) 100 MG tablet Take 100 mg by mouth in the morning and 100 mg before bedtime. 03/09/19 25 2024 Discontinued nitrofurantoin, macrocrystal-mon ohydrate, (Macrobid) 100 MG capsuleIndicatio ns:Urinary tract infection without hematuria, site unspecified Take 1 capsule (100 mg) by mouth in the morning and 1 capsule (100 mg) before bedtime. Do all this for 7 days. 14 capsule 04/13/19 25 2024 Discontinued(R eorder) phentermine (Adipex-P) 37.5 MG tabletIndication s:Class 3 severe obesity due to excess calories with serious comorbidity and body mass index (BMI) of 45.0 to 49.9 in adult,Encounter for weight management Take 1 tablet (37.5 mg) by mouth in the morning. Take before meals. 30 tablet 06/27/19 25 2024 Discontinued(R eorder) predniSONE (Deltasone) 50 MG tabletIndication s:URI, acute Take 1 tablet (50 mg) by mouth Daily for 6 days 6 tablet 06/27/19 25 2024 albuterol HFA 90 mcg/act inhalerIndicatio ns:URI, acute Inhale 2 puffs every 4 (four) hours if needed for wheezing or shortness of breath 18 g 2 06/27/19 25 2024 Discontinued(R eorder) Active Problems Problem Noted Date Diagnosed Date Primary hypertension 03/09/2024 Assessment & Plan (06/26/2024 2:30 PM EDT): BP controlled and monitor PRN. Assessment & Plan (03/13/2024 3:02 PM EST): Currently taking hydrochlorothiazide 12.5mg and Losartan 25mg. [...] the office with readings in 2 weeks. Assessment & Plan (03/09/2024 3:11 PM EST): Currently taking hydrochlorothiazide 12.5mg Checks BP at home; Averages are significantly above goal- 170's SBP. Will add Losartan to hydrochlorothiazide today. Denies orthostatic changes, dizziness, cough, shortness of breath, swelling in extremities. Continue current regimen. Given BP log, advised pt to record BP and bring log back with them to next visit. Anemia 04/19/2023 Assessment & Plan (04/19/2023 7:17 PM EST): Anemia noted on most recent labs Likely due to . Recheck CBC. Wellness examination 04/05/2023 Assessment & Plan (03/13/2024 3:07 PM EST): I have reviewed Ht/Wt/BMI, I have reviewed [...] GOAL 6-8 hours of sleep per night. Assessment & Plan (11/23/2023 9:38 PM EDT): I have reviewed Ht/Wt/BMI, I have reviewed [...] GOAL 6-8 hours of sleep per night. URI, acute 03/03/2023 Assessment & Plan (06/26/2024 2:30 PM EDT): Illness likely due to a virus and need to treat symptoms. Use sudafed or other decongestants as needed. Use Robitussin or Robitussin-DM for cough. Can use afrin for congestion but no longer than 3 days. Can use Mucinex to bring up phlegm. Use Motrin or Tylenol as needed for fever, aches, or pains. Increase fluid intake and rest. Should improve over next 5-7 days and if no better or worse call for re- evaluation. Assessment & Plan (03/03/2023 3:18 PM EST): Reports nasal, sinus congestion, fatigue/malaise, feeling hot and cold. No documented fever. She also has sore throat and cough. On exam - hyperemic oropharyngeal mucosa, clear fluid behind left TM. Expiratory wheezing on exam. No respirator distress. Likely viral URTI and associated wheezing. Will call in ventolin as needed along with Prednisone. Patient can take tylenol, motrin as needed for pain, fever. Asked to call office if worsening symptoms. Class 3 severe obesity due t o excess calories with serious comorbidity and body mass index (BMI) of 45.0 to 49.9 in adult 03/03/2023 Assessment & Plan (06/26/2024 2:28 PM EDT): Patient overweight and difficult time losing weight. Discussed proper diet and regular aerobic exercise. Recommend Weight Watchers and need to limit calories and smaller portions. Need to increase activity and regular aerobic exercise several days a week for 30 minutes at a time. Interested in adipex and warned of potential cardiac side effects. Script written for first month and will need to recheck weight in 1 month. OARRS reviewed. Continue medications as prescribed. Refer to lower in supervisor. Assessment & Plan (11/23/2023 4:11 PM EDT): On Adipex since June Starting weight was [...] well as surgical options for weight loss. Assessment & Plan (08/12/2023 3:49 PM EDT): Here for follow up for Adapex. Has lost about 10 lbs in total in 2 months Tolerating it well. No adverse effects. Will c/w same. Assessment & Plan (07/13/2023 3:39 PM EDT): Here for follow up of Adapex. Lost 4 lbs on it. She was not able to tolerate the full dose first few weeks and only for past 1-2 weeks, she has been able to use the full dose daily. Patient educated on risks of increased cardiovascular morbidity/mortality and poor health outcomes associated with unhealthy bodyweight. Patient counseled on lifestyle modifications, dietary restrictions. Patient encouraged to limit caloric intake and increase physical activity. Therapeutic and surgical options reviewed with patient . Patient was offered opportunity to ask questions and address their concern. Will call in Adapex for another month. Assessment & Plan (06/10/2023 3:46 PM EDT): Patient educated on risks of increased cardiovascular morbidity/mortality and poor health outcomes associated with unhealthy bodyweight. Patient counseled on lifestyle modifications, dietary restrictions. Patient encouraged to limit caloric intake and increase physical activity. Therapeutic and surgical options reviewed with patient . Patient was offered opportunity to ask questions and address their concern. Will start patient on Adapex. Patient counseled and educated on adverse effects, drug interactions and to reach out to office/pharmacy if questions or concerns related to new medications. Opioid use disorder in remission 03/03/2023 Assessment & Plan (11/23/2023 9:41 PM EDT): Follows with [facility]. Was seeing Hope Jimenez. Currently takes Suboxone daily. Current smoker 03/03/2023 Hepatitis C antibody test positive 09/22/2022 History of heroin abuse 12/27/2017 Hx of methicillin resistant Staphylococcus aureu s infection 12/26/2017 Overview (04/05/2023): Endocarditis Resolved Problems Problem Noted Date Diagnosed Date Resolved Date Fatigue 03/13/2024 06/26/2024 Acute paronychia of right thumb 03/09/2024 06/26/2024 Assessment & Plan (03/13/2024 3:06 PM EST): Was seen in office 3 days ago for paronychia without abscess. Treated with doxycycline and mupirocin. Encouraged warm water soaks and mupirocin application 2-3 times per day X5 days. Pt went to ER for swelling over weekend. Was lanced and continued on regimen of Doxycyline and Mupirocin. Advised pt to continue current regimen. Advised pt to report to ER with fever/chills/redness/swelling. Assessment & Plan (03/09/2024 3:10 PM EST): R thumb cracked one week ago/ Developed pain and tenderness 2 days ago. Thumb tender and firm, without abscess at this time. Will treat with doxycycline and mupirocin. Encouraged warm water soaks and mupirocin application 2-3 times per day X5 days. Pt scheduled for wellness on Wednesday. Will re-evaluate at [facility]. Encounter for weight management 10/11/2023 06/26/2024 Assessment & Plan (10/11/2023 7:16 PM EDT): Pt meets qualifications of OAC 4730-12-19 for [...] day. Consider tracking your food intake on [employer] or [employer] Water: Increase water intake; GOAL [...] GOAL 6-8 hours of sleep per night. Ingrown fingernail 08/12/2023 Assessment & Plan (08/12/2023 3:59 PM EDT): Recent skin infection required incision and drainage and abx. Resolved. Skin lesion 08/12/2023 06/26/2024 Assessment & Plan (08/12/2023 4:00 PM EDT): Under right axilla, likely black head - removed with pressure. Resolved. No concern for melanoma. Rash and nonspecific skin eruption 05/26/2023 06/26/2024 Assessment & Plan (05/26/2023 8:50 PM EDT): Atb, steroids, discussed skin care Fu if not better Does not appear to be scabbies or zoster Lesion of left external ear 05/05/2023 06/26/2024 Assessment & Plan (05/05/2023 1:20 PM EDT): Patient reports her left ear lobe had a blister that she burst inadvertently. She feels that there is a small bump in her external ear and she is worried that she may have an ear infection again. Jose Luis ear pain, discharge or any other symptoms On exam, there is some localized erythema of ear lobe and a small raised skin lesion just the entrance of external ear canal. No evidence of ear exam. Monitor as clinically indicated. Pt instructed to call office if worsening symptoms. Shoulder blade pain 04/19/2023 06/27/19 Other chest pain 04/19/2023 06/26/2024 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 04/05/2023 06/26/2024 Blood pressure elevated with out history of HTN 04/05/2023 06/26/2024 Assessment & Plan (04/05/2023 7:25 PM EST): No prior hx of HTN. Elevated in office today. Asymptomatic. Patient asked to monitor BP at home, maintain home BP log and reach out to our office if persistently elevated and above goal. Will monitor for now. Acute cough 04/05/2023 06/26/2024 Assessment & Plan (04/05/2023 7:30 PM EST): Reports mild cough x 2 days. No associated symptoms. No apparent reason or explanation for it. Normal Exam. Likely allergic cough as patient has hx of seasonal allergies. Conservative treatment. Patient asked to reach out to office if worsening or persistent symptoms. Trial of Flonase. Bacterial endocarditis 12/26/201706/26 Overview (04/05/2023): Hx of and suspected current Encounters Date Type Department Care Team Description 07/13/2024 2:40 PM EDT Office Visit [facility] [address] [place] [address] Rufino Cm, DPM Verruca plantaris (Primary Dx); Foot pain, right 07/13/2024 Travel 07/13/2024 Refill [facility] [address] [place] [address] Navarro Haider MD URI, acute 07/11/2024 Telephone [facility] [address] [place] [address] Navarro Haider MD uti 06/26/2024 1:30 PM EDT Office Visit [facility] [address] [place] [address] Navarro Haider MD Primary hypertension (CMS/HCC) (Primary Dx); URI, acute; Class 3 severe obesity due to excess calories with serious comorbidity and body mass index (BMI) of 45.0 to 49.9 in adult; Encounter for weight management; Opioid dependence, uncomplicated (CMS/HCC) 06/26/2024 Telephone [facility] [address] [place] [address] Navarro Haider MD 06/26/2024 Bamboo flowsheet [facility] [address] [place] [address] Navarro Haider MD 06/19/2024 Refill [facility] [address] [place] [address] Navarro Haider MD Vitamin D deficiency 06/01/2024 4:30 PM EDT Office Visit [facility] [address] [place] [address] Rufino Cm, DPM Verruca plantaris (Primary Dx); Foot pain, right 06/01/2024 Bamboo flowsheet [facility] [address] [place] [address] Rufino Cm DPM 06/01/2024 Travel 05/18/2024 4:40 PM EDT Office Visit [facility] [address] [email or web address] [address] [place] [address] Rufino Cm DPM Verruca plantaris (Primary Dx); Foot pain, right 05/18/2024 Bamboo flowsheet [facility] [address] [facility] [[email or web address] [address] [place] [address] Rufino Cm DPM 05/18/2024 Travel 05/17/2024 [facility]phone [facility] [address] [place] [address] Navarro Haider MD Medication Question 05/04/2024 2:00 PM EDT Office Visit [facility] [address] [facility] [[email or web address] [address] [place] [address] Rufino Cm DPM Verruca plantaris (Primary Dx); Foot pain, right 05/04/2024 Bamboo flowsheet [facility] [address] [facility] [[email or web address] [address] [place] [address] Rufino Cm DPM 05/04/2024 Travel 04/20/2024 3:10 PM EST Office Visit [facility] [address] [facility] [[email or web address] [address] [place] [address] Rufino Cm DPM Cellulitis of right thumb (Primary Dx); Verruca plantaris; Foot pain, right 04/20/2024 Bamboo flowsheet [facility] [address] [facility] [[email or web address] [address] [place] [address] Rufino Cm DPM 04/20/2024 Travel from Last 3 Months Immunizations Immunization Administration Dates Next Due Influenza, injectable, quadrivalent 03/11/2018 Family History Medical History Relation Name Comments No Known Problems Brother No Known Problems Daughter 1 No Known Problems Daughter 2 Alcohol abuse Mother Hypertension Mother Relation Name Status Comments Brother Alive Daughter 1 Alive Daughter 2 Alive Father Mother Alive Social History Tobacco Use Types Packs/Day Years [...] on file Sexual Orientation Not on file Last Filed Vital Signs Vital Sign Reading Time Taken Comments Blood Pressure 142/78 06/26/2024 1:44 PM EDT Pulse 66 06/26/2024 1:44 PM EDT Temperature 36.2 C (97.1 F) 06/26/2024 1:44 PM EDT Respiratory Rate 18 07/13/2024 2:56 PM EDT Oxygen Saturation 95% 06/26/2024 1:44 PM EDT Inhaled Oxygen Concentration - - Weight 142 kg (314 lb) 07/13/2024 2:56 PM EDT Height 172.7 cm (5' 8 ) 07/13/2024 2:56 PM EDT Body Mass Index 47.74 07/13/2024 2:56 PM EDT Plan of Treatment Upcoming Encounters Date Type Department Care Team ([facility] Contact Info) Description 07/27/2024 4:00 PM EDT Office Visit [facility] [address] [facility] [address] [place] [id number] Rufino Cm DPM [address] [facility] [address] [place] [address] 08/17/2024 2:45 PM EDT Office Visit [facility] [address] [place] [address] Navarro Haider MD [address] [place] [address] Health Maintenance Due Date Last Done Comments Influenza Vaccine (Season Ended) 2024 03/11/19 19 Cervical Cancer Screening 08/26/2027 Pap Smear 08/26/2027 08/25/2022, 01/01/2015 HPV/Cotest 10/02/2027 10/01/2022 Procedures Procedure Name Priority Date/Time Associated Diagnosis Comments THINPREP PAP AND HPV MRNA E6/E7 W/RFL HPV 16,18/45 Routine 10/01/2022 3:44 PM EDT Well woman exam with routine gynecological exam PAP SMEAR Routine 08/25/2022 12:00 AM EDT from Last 3 Months or Most Recently Relevant to Health Maintenance Results * THINPREP PAP AND HPV MRNA E6/E7 W/RFL HPV 16,18/45 (10/01/2022 3:44 PM EDT) Nadira BUSBY LAB BLOOD ORDERABLES Final Resul t EXTERNAL LAB * Pap Smear (08/25/2022 12:00 AM EDT) Swab Cervical swab / Unknown Historical Provider LAB CYTOLOGY ORDERABLES F inal Result EXTERNAL LAB from Last 3 Months or Most Recently Relevant to Health Maintenance Insurance [employer] [place] Care Teams Manager Risk Management Relationship Specialty Start Date End Date Navarro Haider MD [address] [place] [address] PCP - General Family Medicine 09/15/23 Vida Villa NP [address] [place] [address] Nurse Practitioner Family Medicine 09/15/23
--- OUTSIDE RECORDS SUMMARY | 2024-07-16 19:30 | XMS_ITS | Encounter Summary ---
Author Organization [facility] Address [address] [place] [address] Care Team Providers Care Cullet Washer Name Role Phone Shaikh LINDA Garland Primary Care Provider [phone] Shaikh LINDA Garland Primary Care Provider [phone] Navarro Haider MD Primary Care Provider [phone] Vida Villa HAND ORNAMENT MAKER Unavailable [phone] Encounter Details Date Type Department Care Team (Late st Contact Info) Description 01/21/2023 Orders Only [facility] [address] [place] [address] Pankaj Yanez, DO [address] [facility] [place] [address] Social History Tobacco Use Types Packs/Day Years Used Date Smoking Tobacco: Every Day Cigarettes Comments:Thinking about quit ting Alcohol Use Standard Drinks/Week Comments Not Currently 0 (1 standard drink = 0.6 oz pur e alcohol) Comments No Sex and Gender Information Value Date Recorded Sex Assigned at Not on file Legal Sex Female 6:40 PM EDT Gender Identity Not on file Sexual Orientation Not on file COVID-19 Exposure Response Date Recorded In the last 10 days, have yo u been in contact with someone who was confirmed or suspected to have Coronavirus/COVID-19? No / Unsure 12/28/2022 2:19 PM EST documented as of this encounter Plan of Treatment Upcoming Encounters Date Type Department Care Team (Late st Contact Info) Description 07/27/2024 4:00 PM EDT Office Visit [facility] [address] [facility] [address] [place] [phone] Rufino Cm DPM [address] [facility] [address] [place] [address] 08/17/2024 2:45 PM EDT Office Visit [facility] [address] [place] [address] Navarro Haider MD [address] [place] [address] documented as of this encounter Procedures Procedure Name Priority Date/Time Associated Diagnosis Comments US OB VIABILITY Routine 01/21/2023 11:09 AM EST documented in this encounter Results * US OB VIABLILITY (01/21/2023 11:09 AM EST) Anatomical Region Laterality Modality Body Ultrasound us Pankaj Beau DO IMG OB US PROCEDURES Final Resul t documented in this encounter Visit Diagnoses Not on filedocumented in this encounter Care Teams Cullet Washer Relationship Specialty Start Date End Date Shaikh Garland MD PCP - General Internal Medicine 07/28/22 04/18/23 Shaikh Garland MD [address] [place] [address] PCP - General Internal Medicine 04/19/23 09/14/23 Navarro Haider MD [address] [place] [address] PCP - General Family Medicine 09/15/23 Vida Villa NP [address] [place] [address] Nurse Practitioner Family Medicine 09/15/23 documented as of this encounter
--- OUTSIDE RECORDS SUMMARY | 2024-07-16 19:30 | XMS_ITS | Encounter Summary ---
Author Organization [facility] Address [address] [place] [address] Care Team Providers Care Allopathic Doctor Name Role Phone Navarro Haider MD Primary Care Provider [phone] Vida Villa TRACTOR CRANE OPERATOR Unavailable [phone] Reason for Visit * Reason Onset Date Comments uti 07/11/2024 Encounter Details Date Type Department Care Team (Late st Contact Info) Description 07/11/2024 [facility]phone [facility] [address] [place] [phone] Navarro Haider MD [address] [place] [address] uti Social History Tobacco Use Types Packs/Day Years [...] on file documented as of this encounter Miscellaneous Notes * Telephone Encounter - Navarro Haider MD - 07/11/2024 11:56 AM EDT Script sent. If no better over next few days will need seen. MAN * Telephone Encounter - Viri Chi - 07/11/2024 11:46 AM EDT Patient called stating she has had a uti since Wednesday. She is asking if you can call something in for her. Patient said whatever you called in the last time she had a uti she had an allergic reactionto (she can't remember what it was),but what you called in the second time worked. JN documented in this encounter Plan of Treatment Upcoming Encounters Date Type Department Care Team (Late st Contact Info) Description 07/27/2024 4:00 PM EDT Office Visit [facility] [address] [facility] [address] [place] [address] Rufino Cm DPClemencia [address] [facility] 5 [place] [address] 08/17/2024 2:45 PM EDT Office Visit [facility] [address] [place] [address] Navarro Haider MD [address] [place] [address] documented as of this encounter Visit Diagnoses Diagnosis Urinary tract infection without hematuria, site unspecified documented in this encounter Care Teams Allopathic Doctor Relationship Specialty Start Date End Date Navarro Haider MD [address] [place] [address] PCP - General Family Medicine 09/15/23 Vida Villa NP [address] [place] [address] Nurse Practitioner Family Medicine 09/15/23 documented as of this encounter
--- OUTSIDE RECORDS SUMMARY | 2024-07-16 19:30 | XMS_ITS | Encounter Summary ---
Author Organization [facility] Address [id number] [address] [place] [address] Care Team Providers Care Controlled Atmospheric Furnace Brazer Name Role Phone Tevin Bush MD Primary Care Provider + [phone] Encounter Details Date Type Department Care Team (Late st Contact Info) Description 09/02/2022 Orders Only Maternal- Medicine at [facility] [address] [place] [phone] Ref Prov, [place] [address] Social History Tobacco Use Types Packs/Day Years Used Date Smoking Tobacco: Every Day Cigarettes Smokeless Tobacco: Never Alcohol Use Standard Drinks/Week Comments Not Currently 0 (1 standard drink = 0.6 oz pur e alcohol) Childcare Answer Date Recorded Childcare Unknown 07/25/2018 Employment Answer Date Recorded Employment Unknown 07/25/2018 Purpose - Life Answer Date Recorded Purpose and direction in life Unknown Comments Yes Sex and Gender Information Value Date Recorded Sex Assigned at Not on file Legal Sex Female 2:04 PM EDT Gender Identity Not on file Sexual Orientation Not on file documented as of this encounter Plan of Treatment Not on file documented as of this encounter Procedures Procedure Name Priority Date/Time Associated Diagnosis Comments FREE CELL DNA (NON-[place]) Routine 07/25/2022 2:14 PM EDT documented in this encounter Results * Free Cell DNA (07/25/2022 2:14 PM EDT) us Not In System Ref Prov LAB BLOOD ORDERABLES Zuly l Result MANUALLY TRANSCRIBED RESULTS documented in this encounter Visit Diagnoses Not on filedocumented in this encounter Care Teams Controlled Atmospheric Furnace Brazer Relationship Specialty Start Date End Date Tevin Bush MD PCP - General 07/19/17 documented as of this encounter
--- OUTSIDE RECORDS SUMMARY | 2024-07-16 19:30 | XMS_ITS | Clinical Summary ---
Author Organization [employer] [employer] [facility] Address [id number] [address] [place] [address] Care Team Providers Care Hospice Nurse Practitioner Name Role Phone Tevin Bush MD Primary Care Provider + [phone] Allergies Active Allergy Reactions Criticality Noted Date Comments Codeine 08/27/2022 Penicillins 08/27/2022 Medications [id number] c acid ( 19) 29 mg iron- 1 mg tablet,chewable Chew 1 tablet and swallow in the morning. Active buprenorphine-n aloxone (SUBOXONE) 2-0.5 mg per SL tablet Place under the tongue daily. Active ondansetron (ZOFRAN) 4 mg tablet Take 1 tablet (4 mg total) by mouth every 8 (eight) hours as needed for nausea or vomiting. Active buprenorphine (SUBUTEX) 2 mg tablet, sublingual Place 2 tablets (4 mg total) under the tongue in the morning. Active meloxicam (MOBIC) 15 mg tablet Take 1 tablet (15 mg total) by mouth in the morning. Active Active Problems Problem Noted Date Diagnosed Date complicated by subutex maintenance, an tepartum 09/22/2022 Hepatitis C antibody test positive 09/22/2022 AMA (advanced maternal age) multigravida 35+, second trimester 09/22/2022 Family History Medical History Relation Name Comments Alcohol abuse Mother Hypertension Mother Relation Name Status Comments Father Mother Alive Social History Tobacco Use Types Packs/Day Years Used Date Smoking Tobacco: Every Day Cigarettes Smokeless Tobacco: Never Tobacco Cessation:Ready to Q uit: No; Counseling Given: No Alcohol Use Standard Drinks/Week Comments Not Currently 0 (1 standard drink = 0.6 oz pur e alcohol) Childcare Answer Date Recorded Childcare Unknown 07/25/2018 Employment Answer Date Recorded Employment Unknown 07/25/2018 Hunger Screening Answer Date Recorded Within the past 12 months we worried whether our food would run out before we got money to buy more. Never True 09/22/2022 Within the past 12 months th e food we bought just didn't last and we didn't have money to get more. Never True 09/22/2022 Purpose - Life Answer Date Recorded Purpose and direction in life Unknown Comments No Sex and Gender Information Value Date Recorded Sex Assigned at Not on file Legal Sex Female 2:04 PM EDT Gender Identity Not on file Sexual Orientation Not on file Last Filed Vital Signs Vital Sign Reading Time Taken Comments Blood Pressure 117/63 09/22/2022 1:41 PM EDT Pulse 74 09/22/2022 1:41 PM EDT Temperature - - Respiratory Rate - - Oxygen Saturation - - Inhaled Oxygen Concentration - - Weight 151.2 kg (333 lb 6.4 oz) 09/22/2022 1:41 PM EDT Height - - Body Mass Index - - Plan of Treatment Health Maintenance Due Date Last Done Comments Depression Screening 1997 Adult BMI Screening 2003 DTaP,Tdap and Td Vaccines (1 - Tdap) 2004 Pap Smear 2006 Tobacco Screening 09/23/2023 09/22/2022 Influenza Vaccine 10/16/2024 03/11/2018 Medical Devices Not on file Insurance MEDICAID Care Teams Hospice Nurse Practitioner Relationship Specialty Start Date End Date Tevin Bush MD PCP - General 07/19/17
--- OUTSIDE RECORDS SUMMARY | 2024-07-16 19:30 | XMS_ITS | Encounter Summary ---
Author Organization [facility] Address [address] [place] [address] Care Team Providers Care Track Layer Head Name Role Phone Shaikh LINDA Garland Primary Care Provider [phone] Shaikh LINDA Garland Primary Care Provider [phone] Navarro Haider MD Primary Care Provider [phone] Vida Villa [employer] INTER[employer] Unavailable [phone] Encounter Details Date Type Department Care Team (Late st Contact Info) Description 12/18/2022 Clinisync Result Encounter [facility] External Department Unsolicited Jessica Yanez, DO [address] [facility] [place] [address] Social History Tobacco Use Types Packs/Day Years Used Date Smoking Tobacco: Every Day Cigarettes Comments:Thinking about quit ting Alcohol Use Standard Drinks/Week Comments Not Currently 0 (1 standard drink = 0.6 oz pur e alcohol) Comments Yes Sex and Gender Information Value Date Recorded Sex Assigned at Not on file Legal Sex Female 6:40 PM EDT Gender Identity Not on file Sexual Orientation Not on file documented as of this encounter Plan of Treatment Upcoming Encounters Date Type Department Care Team (Late Contact Info) Description 07/27/2024 4:00 PM EDT Office Visit [facility] [address] [facility] [address] [place] [phone] Rufino Cm, FELIPE 94[address] [facility] [address] [place] [address] 08/17/2024 2:45 PM EDT Office Visit [facility] [address] [place] [address] Navarro Haider MD [address] [place] [address] documented as of this encounter Procedures Procedure Name Priority Date/Time Associated Diagnosis Comments US OB BPP W NON-STRESS 12/18/2022 5:55 PM EDT documented in this encounter Results * US OB BPP W NON-STRESS (12/18/2022 5:55 PM EDT) Anatomical Region Laterality Modality Other 12/18/2022 5:55 PM EDT Narrative 12/18/2022 5:55 [place] [address] Ultrasound Report Signed Patient: ALESHA HALL MR#: [id number] : 1985 Acct:[id number] Age/Sex: 37 / F ADM Date: 12/17/22 Loc: US Attending Dr: Jessica Yanez D.O. Ordering Physician: Jessica Yanez D.O. Date of Service: 12/17/22 Procedure(s): US OB BPP w non-stress Accession Number(s): [id number] cc: Shaikh Irasema Garland; Jessica Yanez D.O. The [address] [address] Patient Name: ALESHA HALL MRN: [id number] date: 1985 Sex: F Assigned Patient Location: [facility] Current Patient Location: Accession/Order Number: [id number] Exam Date: 12/17/2022 15:00 Report Date: 12/18/2022 17:55 At the request of: JESSICA YANEZ Procedure: US OB BPP w non-stress EXAMINATION: US OB BPP w non-stress HISTORY: GESTATION DIABETES O24.410 COMPARISON: No relevant comparison available. TECHNIQUE: Ultrasound biophysical profile was performed in the radiology department. FINDINGS: BREATHING MOVEMENTS: 2.0 GROSS BODY MOVEMENTS: 2.0 TONE: 2.0 QUALITATIVE AMNIOTIC FLUID VOLUME: 2.0 PRESENTATION: BREECH HEART RATE: 131.1 bpm H.B./min AMNIOTIC FLUID VOLUME: 13.3 cm cm GESTATIONAL AGE: 33 weeks 2 days CONCLUSION: Total biophysical profile score: 8.0 Electronically authenticated by: GABO DYKES Date: 12/18/2022 17:55 Dictated By: Gabo Dykes M.D. Signed By: 12/18/221756 DD/ 54 TD/TT: Moto Mix Operator: Procedure Note Radiology, Radiologist, - 12/18/2022 [place] [address] Ultrasound Report Signed Patient: ALESHA HALL AMR#: [id number] : 1985Acct:[id number] Age/Sex: 37 / FADM Date: 12/17/22 Loc: US Attending Dr: Jessica Yanez D.O. Ordering Physician: Jessica Yanez D.O. Date of Service: 12/17/22 Procedure(s): US OB BPP w non-stress Accession Number(s): [id number] cc: Shaikh Irasema Garland; Jessica Yanez D.O. The [place] [id number] Patient Name: ALESHA HALL MRN: [id number] date: 1985 Sex: F Assigned Patient Location: [facility] Current Patient Location: Accession/Order Number: [id number] Exam Date: 12/17/2022 15:00 Report Date: 12/18/2022 17:55 At the request of: JESSICA YANEZ Procedure: US OB BPP w non-stress EXAMINATION: US OB BPP w non-stress HISTORY: GESTATION DIABETES O24.410 COMPARISON: No relevant comparison available. TECHNIQUE: Ultrasound biophysical profile was performed in the radiology department. FINDINGS: BREATHING MOVEMENTS: 2.0 GROSS BODY MOVEMENTS: 2.0 TONE: 2.0 QUALITATIVE AMNIOTIC FLUID VOLUME: 2.0 PRESENTATION: BREECH HEART RATE: 131.1 bpm H.B./min AMNIOTIC FLUID VOLUME: 13.3 cm cm GESTATIONAL AGE: 33 weeks 2 days CONCLUSION: Total biophysical profile score: 8.0 Electronically authenticated by: GABO DYKES Date: 12/18/2022 17:55 Dictated By: Gabo Dykes M.D. Signed By:12/18/221756 DD/ 54 TD/TT: Moto Mix Operator: us Jessica Beau DO [facility] Final Result documented in this encounter Visit Diagnoses Not on filedocumented in this encounter Care Teams Track Layer Head Relationship Specialty Start Date End Date Shaikh Garland MD PCP - General Internal Medicine 07/28/22 04/18/23 Shaikh Garland MD [address] [place] [phone] PCP - General Internal Medicine 04/19/23 09/14/23 Navarro Haider MD [address] [place] [phone] PCP - General Family Medicine 09/15/23 Vida Villa NP [address] [place] [phone] Nurse Practitioner Family Medicine 09/15/23 documented as of this encounter
--- OUTSIDE RECORDS SUMMARY | 2024-07-16 19:30 | XMS_ITS | Encounter Summary ---
Author Organization [facility] Address [address] [place] [address] Care Team Providers Care Special Projects Coordinator Name Role Phone Shaikh LINDA Garland Primary Care Provider [phone] Shaikh LINDA Garland Primary Care Provider [phone] Navarro Haider MD Primary Care Provider [phone] Vida Villa SONOGRAPHY TECHNICIAN Unavailable [phone] Reason for Visit * Reason Comments Med Refill Encounter Details Date Type Department Care Team (Late st Contact Info) Description 02/09/2023 [facility] [address] [place] [address] Shaikh Garland MD [address] [place] [address] Psychophysiological insomnia (Primary Dx) Social History Tobacco Use Types [...] encounter Miscellaneous Notes * Telephone Encounter - Shaikh Gill MD - 02/10/2023 12:20 PM EST Approving, but needs appt for additional refills. documented in this encounter Plan of Treatment Upcoming Encounters Date Type Department Care Team (Late st Contact Info) Description 07/27/2024 4:00 PM EDT Office Visit [facility] [address] [facility] [address] [place] [address] Rufino Cm, DPClemencia 3006 [facility] [address] [place] [address] 08/17/2024 2:45 PM EDT Office Visit [facility] [address] [place] [phone] Navarro Haider MD [address] [place] [address] documented as of this encounter Visit Diagnoses Diagnosis Psychophysiological insomnia- Primary Persistent disorder of initiating or maintaining sleep documented in this encounter Care Teams Special Projects Coordinator Relationship Specialty Start Date End Date Shaikh aGrland MD PCP - General Internal Medicine 07/28/22 04/18/23 Shaikh Garland MD [address] [place] [address] PCP - General Internal Medicine 04/19/23 09/14/23 Navarro Haider MD [address] [place] [address] PCP - General Family Medicine 09/15/23 Vida Villa NP [address] [place] [phone] Nurse Practitioner Family Medicine 09/15/23 documented as of this encounter
--- OUTSIDE RECORDS SUMMARY | 2024-07-16 19:30 | XMS_ITS | Encounter Summary ---
Author Organization [facility] Address [address] [place] [address] Care Team Providers Care Snowboard Designer Name Role Phone Shaikh LINDA Garland Primary Care Provider [phone] Shaikh LINDA Garland Primary Care Provider [phone] Navarro Haiedr MD Primary Care Provider [phone] Vida Villa CONTACT [employer]FFER Unavailable [phone] Encounter Details Date Type Department Care Team (Late st Contact Info) Description 12/18/2022 Clinisync Result Encounter [facility] External Department Unsolicited Jessica Yanez, DO [address] [facility] [place] [address] Social History Tobacco Use Types [...] EDT Office Visit [facility] [address] [facility] [address] [place] [phone] Rufino Cm, FELIPE 1793 [facility] 5 [place] [address] 08/17/2024 2:45 PM EDT Office Visit [facility] [address] [place] [address] Navarro Haider MD [address] [place] [address] documented as of this encounter Procedures Procedure Name Priority Date/Time Associated Diagnosis Comments US OB GROWTH 12/18/2022 5:59 PM EDT documented in this encounter Results * US OB GROWTH (12/18/2022 5:59 PM EDT) Anatomical Region Laterality Modality Other 12/18/2022 5:59 PM EDT Narrative 12/18/2022 5:59 [place] [address] Ultrasound Report Signed Patient: ALESHA HALL MR#: [id number] : 1985 Acct:[id number] Age/Sex: 37 / F ADM Date: 12/17/22 Loc: US Attending Dr: Jessica Yanez D.O. Ordering Physician: Jessica Yanez D.O. Date of Service: 12/17/22 Procedure(s): US OB growth Accession Number(s): [id number] cc: Shaikh Irasema Garland; Jessica Yanez D.O. The [place] [id number] Patient Name: ALESHA HALL MRN: [id number] date: 1985 Sex: F Assigned Patient Location: US Current Patient Location: US Accession/Order Number: [id number] Exam Date: 12/17/2022 15:00 Report Date: 12/18/2022 17:59 At the request of: JESSICA YANEZ Procedure: US OB growth PROCEDURE: US OB growth HISTORY: FEATL SIZE INCONSISTENT WITH DATS O26.849 COMPARISON: None. TECHNIQUE: Transabdominal sonographic examination was performed for obstetrical and evaluation. FINDINGS: Number: 1 Heart Rate: 131.1 bpm H.B. /min Amniotic Fluid Volume: 13.3 cm, largest pocket 4.9 cm Placental Location: Posterior BIOMETRY: BPD: 8.1 cm 32 weeks 3 days , 20% HC: 30.2 cm 33 weeks 4 days , 21% AC:29.8 cm 33 weeks 5 days , 66% FL: 6.7 cm 34 weeks 4 days , 75% EFW: 2292.4 grams 5 lbs. 1 oz., 60% FL/AC: 22.6 FL/BPD: 83.6 HC/AC: 1.0 GESTATIONAL AGE: Age by EDC: 33 weeks 2 days REJI by EDC: 02/02/2023 Ultrasound Age: 33 weeks 4 days Ultrasound REJI: 01/31/2023 US/US OB growth IMPRESSION: Normal interval growth *Reference: [employer] Practice Guideline for the performance of Obstetric Ultrasound Examinations, November 15, 2006. Electronically authenticated by: GABO DYKES Date: 12/18/2022 17:59 Dictated By: Gabo Dykes M.D. Signed By: 12/18/22 180 DD/ 175 TD/TT: Compound Worker: Procedure Note Radiology, Radiologist, - 12/18/2022 [place] [address] Ultrasound Report Signed Patient: ALESHA HALL AMR#: [id number] : 1985Acct:[id number] Age/Sex: 37 / FADM Date: 12/17/22 Loc: US Attending Dr: Jessica Yanez D.O. Ordering Physician: Jessica Yanez D.O. Date of Service: 12/17/22 Procedure(s): US OB growth Accession Number(s): [id number] cc: Shaikh Irasema Garland; Jessica Yanez D.O. The [place] [address] Patient Name: ALESHA HALL MRN: [facility]:[id number] date: 1985 Sex: F Assigned Patient Location: US Current Patient Location: US Accession/Order Number: [id number] Exam Date: 12/17/2022 15:00 Report Date: 12/18/2022 17:59 At the request of: JESSICA YANEZ Procedure: US OB growth PROCEDURE: US OB growth HISTORY: FEATL SIZE INCONSISTENT WITH DATS O26.849 COMPARISON: None. TECHNIQUE: Transabdominal sonographic examination was performed for obstetrical and evaluation. FINDINGS: Number: 1 Heart Rate: 131.1 bpm H.B. /min Amniotic Fluid Volume: 13.3 cm, largest pocket 4.9 cm Placental Location: Posterior BIOMETRY: BPD: 8.1 cm 32 weeks 3 days , 20% HC: 30.2 cm 33 weeks 4 days , 21% AC:29.8 cm 33 weeks 5 days , 66% FL: 6.7 cm 34 weeks 4 days , 75% EFW: 2292.4 grams 5 lbs. 1 oz., 60% FL/AC: 22.6 FL/BPD: 83.6 HC/AC: 1.0 GESTATIONAL AGE: Age by EDC: 33 weeks 2 days REJI by EDC: 02/02/2023 Ultrasound Age: 33 weeks 4 days Ultrasound REJI: 01/31/2023 US/US OB growth IMPRESSION: Normal interval growth *Reference: [employer] Practice Guideline for the performance of Obstetric Ultrasound Examinations, November 15, 2006. Electronically authenticated by: GABO DYKES Date: 12/18/2022 17:59 Dictated By: Gabo Dykes M.D. Signed By:12/18/22 180 DD/ 1759 TD/TT: Compound Worker: us Jessica Yanez DO [facility] Final Result documented in this encounter Visit Diagnoses Not on filedocumented in this encounter Care Teams Snowboard Designer Relationship Specialty Start Date End Date Shaikh Garland MD PCP - General Internal Medicine 07/28/22 04/18/23 Shaikh Garland MD [address] [place] [phone] PCP - General Internal Medicine 04/19/23 09/14/23 Navarro Haider MD [address] [place] [address] PCP - General Family Medicine 09/15/23 Vida Villa NP [address] [place] [address] Nurse Practitioner Family Medicine 09/15/23 documented as of this encounter
--- OUTSIDE RECORDS SUMMARY | 2024-07-16 19:30 | XMS_ITS | Clinical Summary ---
Author Organization [facility] Address [address] [place] [address] Care Team Providers Care Guide Dog Mobility Instructor Name Role Phone Vida Villa APRN - BEATRIZ Primary Care Pro vider Allergies Active Allergy Reactions Criticality Noted Date Comments Codeine 07/28/2022 Other Reaction(s): Unknown Penicillins 07/28/2022 Other Reaction(s): SOB/ITCHING Sulfamethoxazole-Trimethopr im 08/12/2023 Tramadol 10/20/2012 Vancomycin Anaphylaxis High 12/26/2017 Lips swell cant breath Hydrocodone-Acetaminophen 10/20/2012 Medications ondansetron (ZOFRAN) 4 MG tablet Take 1 tablet by mouth every 8 hours as needed Active naloxone 4 MG/0.1ML LIQD nasal spray 1 spray by Nasal route as needed 03/02/2024 Active meloxicam (MOBIC) 15 MG tablet Take 1 tablet by mouth daily Active losartan (COZAAR) 25 MG tablet Take 1 tablet by mouth daily Active hydroCHLOROthiaz mandeep 12.5 MG tablet Take 1 tablet by mouth daily Active folic acid (FOLVITE) 1 MG tablet Take 1 tablet by mouth daily Active Ferrous Sulfate (IRON PO) Take 1 tablet by mouth daily Active etonogestrel (NEXPLANON) 68 MG implant 68 mg once Active Cholecalciferol (VITAMIN D3) 20 MCG (800 UNIT) TABS Take 20 mcg by mouth daily 03/21/2024 Active buprenorphine-na loxone (SUBOXONE) 8-2 MG FILM SL film PLACE 1 FILM UNDER TONGUE THREE TIMES A DAY 05/03/2024 Active Active Problems Patient Care Coordination No te Formatting of this note migh t be different from the original. PATIENT PICKING UP OWN RECORDS, WE HAVE COPIED THEM TWICE (no more copies) Records Sent to Hope Jimenez NP Records Sent to Orville Mahmood M.D. Referred to [facility]: Appt on 01-18-14 at 3:45. Patient notified on 12-28-13. Patient rescheduled appointment to 03-02-14. Patient opted not to return to see Dr. Conklin. Referral to [facility] (Dr. Gongora) 05-02-14, appt with Dr. Gongora 07-31-14 at 1pm; no show for this appt Problem Noted Date Diagnosed Date Rectal bleeding 05/16/2024 Left-sided chest wall pain 12/27/2017 Pleurisy 12/27/2017 History of heroin abuse 12/27/2017 Muscular pain 12/27/2017 Community acquired bacterial pneumonia 8 Bacterial endocarditis 12/26/2017 Overview (12/26/2017): Hx of and suspected current Hx of methicillin resistant Staphylococcus aureu s infection 12/26/2017 Overview (12/26/2017): Endocarditis Noncompliance 12/26/2017 Generalized abdominal pain 04/30/2016 Acute cholecystitis 04/29/2016 Hepatitis C 04/29/2016 IVDU (intravenous drug user) 04/29/2016 Positive urine drug screen 04/29/2016 SOB (shortness of breath) Atypical chest pain Bacteremia due to Gram-negative bacteria 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 Drug abuse Pneumonia of both lungs due to infectious organi sm Encounters Date Type Department Care Team Description 06/22/2024 9:13 AM EDT Anesthesia Event [facility] [address] [place] [address] Efrem Velasquez APRN - REELER OPERATOR 06/22/2024 8:38 AM EDT - 06/22/2024 9:14 AM EDT Surgery [facility] [address] [place] [address] Gordon Zaragoza MD COLONOSCOPY 06/22/2024 8:03 AM EDT - 06/22/2024 10:41 AM EDT Hospital Encounter [facility] [address] [place] [address] Gordon Zaragoza MD Discharge Disposition: Home or Self Care 06/22/2024 Travel 05/21/2024 5:22 PM EDT - 05/21/2024 11:59 PM EDT Hospital Encounter [facility] [address] [place] [address] Discharge Disposition: Home or Self Care 05/16/2024 2:00 PM EDT Office Visit [facility] GI Part of [address] [place] [address] Melyssa Mix, INJECTION MOLD TECHNICIAN - SUPERVISOR CELL OPERATION Rectal bleeding (Primary Dx); Pre-op testing 05/16/[address] [facility] GENERAL SURGERY [address] [place] [address] Melyssa Mix, INJECTION MOLD TECHNICIAN - SUPERVISOR CELL OPERATION Rectal bleeding from Last 3 Months Immunizations Immunization Administration Dates Next Due Influenza, AFLURIA (age 3 y+ ), FLUZONE, (age 6 mo+), Quadv MDV, 0.5mL 03/11/2018 Family History Medical History Relation Name Comments Alcohol Abuse Father Hypertension Father Diabetes Maternal Grandfather Heart Disease Maternal Grandfather Anemia Maternal Grandmother Hypertension Maternal Grandmother Alcohol Abuse Mother Hypertension Mother Alcohol Abuse Paternal Grandmother Colon Cancer Neg Hx Colon Polyps Neg Hx Relation Name Status Comments Father Maternal Grandfather Maternal Grandmother Alive Mother Alive Paternal Grandfather Paternal Grandmother Social History Tobacco Use Types Packs/Day Years Used Date Smoking Tobacco: Every Day Cigarettes Smokeless Tobacco: Never Tobacco Cessation:Ready to Q uit: Not Asked; Counseling Given: Not Answered Alcohol Use Standard Drinks/Week Comments No 0 [...] Sign Reading Time Taken Comments Blood Pressure 142/90 06/22/2024 10:15 AM EDT Pulse 69 06/22/2024 10:15 AM EDT Temperature 36.1 C (97 F) 06/22/2024 9:38 AM EDT Respiratory Rate 13 06/22/2024 10:1 5 AM EDT Oxygen Saturation 98% 06/22/2024 10: 15 AM EDT Inhaled Oxygen Concentration - - Weight 143.1 kg (315 lb 6.4 oz) 06/22/2024 8:16 AM EDT Height 170.2 cm (5' 7 ) 06/22/2024 8:16 AM EDT Body Mass Index 49.4 06/22/2024 8:16 AM EDT Plan of Treatment Health Maintenance Due Date Last Done Comments Depression Screen 1997 Varicella vaccine (1 of 2 - 13+ 2-dose series) 1998 HIV screen 2000 DTaP/Tdap/Td vaccine (1 - Tdap) 2004 Hepatitis A vaccine (1 of 2 - Risk 2-dose series) 2004 Hepatitis B vaccine (1 of 3 - 19+ 3-dose series) 2004 Pneumococcal 0-49 years Vaccine (1 of 2 - PCV) 2004 HPV (without or with Pap) 2015 Cervical cancer screen 01/01/2018 Pap smear 01/01/2018 01/01/2015, 12/07/2013, 11/10/2012 Diabetes screen 2020 01/16/2013 COVID-19 Vaccine (2023-2 5 season) 2023 Flu vaccine (Season Ended) 2024 03/11/2018 HPV vaccine Aged Out No longer eligi ble based on patient's age to complete this topic Hib vaccine Aged Out No longer eligi ble based on patient's age to complete this topic Meningococcal (ACWY) vaccine Aged Out No longer eligible based on patient's age to complete this topic Meningococcal B vaccine Aged Out No l onger eligible based on patient's age to complete this topic Polio vaccine Aged Out No longer elig ible based on patient's age to complete this topic Procedures Procedure Name Priority Date/Time Associated Diagnosis Comments [place] COLON CA SCRN NOT HI RSK IND 06/22/2024 9:13 AM EDT Rectal bleeding HCG, SERUM, QUALITATIVE Routine 06/22/2024 8:30 AM EDT EKG 12-LEAD Routine 05/21/2024 5:27 PM EDT ACTIVITY ASSISTANT CYTOLOGY Routine 01/01/2015 2:26 PM EST HEMOGLOBIN A1C Routine 01/16/2013 2:08 PM EST from Last 3 Months or Most Recently Relevant to Health Maintenance Results * HCG Qualitative, Serum (06/22/2024 8:30 AM EDT) Pathologist [facility] Preg, Serum NEGATIVE NEGATIVE 06/22/2024 8:30 AM EDT [facility] Comment: Specimens with hCG levels near the threshold of the test (25 mIU/mL) may give a negative or indeterminate result. In such cases, another test should be performed with a new specimen in 48-72 hours. If early is suspected clinically in this setting, correlation with quantitative serum b-hCG level is suggested. [employer] has confirmed the use of plasma for this test. This has not been cleared or approved by the U.S. Food and Drug Administration. The FDA has determined that such clearance is not necessary. Blood BLOOD SPECIMEN / Unknown 06/22/2024 8:30 AM EDT 06/22/2024 8:51 AM EDT us Gordon Zaragoza MD CHEMISTRY ORDERABLES Final R esult [facility] [address] [place] [address], [facility] [phone] * EKG 12 Lead (05/21/2024 5:27 PM EDT) Ventricular Rate 76 BPM [facility] Atrial Rate 76 BPM [facility] P-R Interval 140 ms [facility] QRS Duration 88 ms [facility] Q-T Interval 412 ms [facility] QTc Calculation (Bazett) 463 ms [facility] P [place] 43 degrees [facility] R [place] 35 degrees [facility] T [place] 41 degrees [facility] 05/21/2024 5:27 PM EDT Narrative [facility] - 05/22/2024 12:04 AM EDT Normal sinus rhythm Normal ECG No previous ECGs available Confirmed by EDWIN SEAMAN ([id number]) on 05/22/2024 12:04:18 AM Procedure Note Edwin Seaman MD - 05/22/2024 Normal sinus rhythm Normal ECG No previous ECGs available Confirmed by EDWIN SEAMAN ([id number]) on 05/22/2024 12:04:18 AM Melyssa Mix INJECTION MOLD TECHNICIAN - SUPERVISOR CELL OPERATION ECG ORDERABLES Zuly l Result [facility] * ACTIVITY ASSISTANT Cytology (01/01/2015 2:26 PM EST) Cytology Report (NOTE) [id number] [facility] ANATOMIC PATHOLOGY [facility]. [place], [place] [address] GYNECOLOGIC CYTOLOGY REPORT Patient Name: ALESHA KENNEY MR#: [id number] Specimen #[id number] Source: 1: CERVICAL MATERIAL, (THIN PREP VIAL) Clinical History Z01.419 Routine platform loader exam without abnormal findings Z12.4 Encounter for screening for malignant neoplasm of cervix High Risk HPV DNA testing is requested if the diagnosis is ASC-US Date of prior pap: 12/07/2013 INTERPRETATION CERVICAL MATERIAL, (THIN PREP VIAL): Specimen Adequacy: Satisfactory for evaluation. - Endocervical/trans formation zone component present. Descriptive Diagnosis: Negative for intraepithelial lesion or malignancy. Performance Test Architect: CHRISTINA Haider(ASCP) Electronically Signed Out miladys/01/17/2015 01/17/2015 12:00 AM EST [facility] 01/01/2015 2:26 PM EST 01/03/2015 2:26 PM EST Adonay Gordillo MD PATHOLOGY/CYTOLOGY ORDERABLES Final Result Performing Organization Address City/[facility]/ZIP Co de Phone Number [facility] [address] [place] [address], [facility] [phone] * Hemoglobin A1c (01/16/2013 2:08 PM EST) Hemoglobin A1C 5.2 4.0 - 6.0 % 01/16/2013 8:45 PM EST [facility] Estimated Avg Glucose 103 mg/dL 01/16/2013 8:45 PM EST [facility] Comment: The ADA and AACC recommend providing the estimated average glucose result to permit better patient understanding of their HBA1c result. Performed at [address] [place] [address] 01/16/2013 2:08 PM EST 01/16/2013 6:18 PM EST Adonay Gordillo MD CHEMISTRY ORDERABLES Final Re sult Performing Organization Address [facility]/ZIP Co de Phone Number [facility] [address] [place] [address], [facility] [phone] [facility] from Last 3 Months or Most Recently Relevant to Health Maintenance Additional Health Concerns Infection Onset Date Last Indicated MRSA Comment:MRSA respiratory culture on 12/29/2017. endocarditis at [facility] in [place] approximately 6 months ago. 12/29/2017 12/27/2017 Insurance [facility] MEDICAID Advance Directives Documents on File Type Date Recorded Patient Data Analytics Developer Expl anation ACP-Advance Directive 01/05/2018 12:59 PM * Full Code (Latest Code Status on File) Date Activated Date Inactivated Comments 12/28/2017 1:44 AM 01/04/2018 3:56 PM * Full Code Date Activated Date Inactivated Comments 12/27/2017 6:10 PM 12/28/2017 1:44 AM * Full Code Date Activated Date Inactivated Comments 12/26/2017 12:26 AM 12/27/2017 6:10 PM * Full Code Date Activated Date Inactivated Comments 04/29/2016 2:38 AM 04/30/2016 10:54 PM Care Teams Guide Dog Mobility Instructor Relationship Specialty Start Date End Date Vida Villa APRN - NP [address] [place] [address] [place] [address] PCP - General Nurse Practitioner 05/11/24
--- OUTSIDE RECORDS SUMMARY | 2024-07-16 19:30 | XMS_ITS | CCD ---
Author Organization [facility] Care Team Providers Care Auto Inspector Name Role Phone IVAN FERNANDEZ Unavailable Unavailable [...] ABBUD, TINA A Unavailable Unavailable FELIPA PYLE R Unavailable Unavailable LUIS LÓPEZ I Unavailable Unavailable KATHERINE, TANIKA Unavailable Unavailable TALYA BRIAN Unavailable Unavailable CARBONE, GOVBAMRAM K Unavailable Unavailable NO FAMILY DOCTOR, NO [...] Attending Lien Devries PA-C, Liliane Briones Attending Shaikh Peoples MD Referring Unavailable Suresh Broderick MD Attending Unavaila Navarro Fuentes MD Primary Care Provider Allen CONTRACTS REPRESENTATIVE, Sonya Unavailable Villa CONTRACTS REPRESENTATIVE, Sonya Unavailable Allen [employer] - CONTRACTS REPRESENTATIVE, [facility] Primary Care Pro vider MELYSSA CORTEZ Referring Unavailable ALLEN, [facility] Primary Care UnavailGORDON Encinas Admitting Unavailable GORDON RANGEL Attending Unavailable KOFI VILLATANY Primary Care Unavailabl e ALLEN, SONYA Attending Unavailabl e SONYA VILLA Attending Unavailabl RUFINO Hsieh Attending Unavailable RUFINO ARIAS Referring Unavailable RUFINO ARISA Attending Unavailable RUFINO ARIAS Attending Unavailable SHAIKH HOPSON Attending Unavailable SONYA VILLA Attending UnavailSONYA Hurt Attending UnavailRUFINO Tobin Attending Unavailable RUFINO ARIAS Attending Unavailable NAVARRO OVIEDO Attending Unavailable RUFINO ARIAS Attending Unavailable Allergies Allergy Classification Reported Allergen(s) Allergy Type Date of Onset Reaction(s) Facility (20 sources) Acetaminophen / HYDROcodone; Translations: [HYDROCODONE-ACETAMI NOPHEN] Drug Allergy 10-21-19 13 Unknown [facility] Repository (20 sources) traMADol; Translations: [TRAMADOL] Drug Allergy 10-21-19 13 Unknown [facility] Repository (1 source) Acetaminophen / HYDROcodone Drug Allergy 08-28-19 16 [facility] Repository (1 source) Codeine Drug Allergy 05-08-19 09 [facility] Repository (1 source) Penicillin Drug Allergy 06-15-19 20 [facility] Repository (20 sources) Codeine Drug Allergy 07-29-19 23 [facility] Healthcare Work Phone: (20 sources) Penicillin G Drug Allergy 12-30-19 23 [facility] (20 sources) Penicillins Propensity to adverse reactions 07-29-19 23 [facility] (20 sources) Sulfamethoxazole / Trimethoprim Drug Allergy 08-12-19 24 [facility] Healthcare Work Phone: (20 sources) Vancomycin Drug Allergy 12-27-19 18 Anaphylaxis [facility] (2 sources) Penicillins Propensity to adverse reactions to drug 07-29-19 23 [facility] (2 sources) Ciprofloxacin Drug Allergy 07-12-19 25 [facility] Healthcare Work Phone: Medications Current Medications Medication Drug Class(es) Dates Sig (Normalized) Sig (Original) [id number] 200 actuat albuterol 0.09 mg/actuat metered dose inhaler (4 sources) beta2-Adrenergic Agonist Start: 07-13-2024 take 2 puff(s) by inhalation every four hours for wheezing albuterol HFA 90 mcg/act inhaler Indications: URI, acute Inhale 2 puffs every 4 (four) hours if needed for wheezing or shortness of breath 18 g 2 07/13/2024 Active Start: 06-26-2024 take 2 puff(s) by in halation every four hours for wheezing albuterol HFA 90 mcg/act inhaler Indications: URI, acute Inhale 2 puffs every 4 (four) hours if needed for wheezing or shortness of breath 18 g 2 06/26/2024 Active buprenorphine 8 mg / naloxone 2 mg sublingual film (20 sources) Partial Opioid Agonist, Opioid Antagonist Start: 05-03-2024 buprenorphine-naloxo ne (SUBOXONE) 8-[address] film [address] 1 FILM UNDER TONGUE THREE TIMES A DAY 05/03/2024 Active Start: 05-03-2023 Buprenorphine HCl-Naloxone HCl (Suboxone) 8-[address] 2 Film under the tongue Daily 05/03/2023 Active calcium chloride 0.0014 meq/ml / potassium chloride 0.004 meq/ml / sodium chloride 0.103 meq/ml / sodium lactate 0.028 meq/ml injectable solution (1 source) Start: 06-22-2024 IntraVENous, a t 100 mL/hr, CONTINUOUS, Starting on Tanya 06/22/24 at 0845, Pre-op (day of surgery) Cholecalciferol (19 sources) Vitamin D Start: 06-19-2024 take 1 tablet by mouth once daily cholecalciferol (Vitamin D-3) 20 MCG (800 UNIT) tablet Indications: Vitamin D deficiency Take 1 tablet (20 mcg) by mouth Daily 90 tablet 06/19/2024 Active Start: 03-21-2024 take 1 tablet by ivis th once daily Cholecalciferol (VITAMIN D3) 20 MCG (800 UNIT) TABS Take 20 mcg by mouth daily 03/21/2024 Active Start: 03-21-2024 take 1 tablet by ivis th once daily cholecalciferol (Vitamin D-3) 20 MCG (800 UNIT) tablet Indications: Vitamin D deficiency Take 1 tablet (20 mcg) by mouth Daily 90 tablet 03/21/2024 Active clindamycin 300 mg oral capsule (2 sources) Lincosamide Antibacterial Start: 03-30-2024 End: 04-09-2024 take 1 capsule by mouth in the morning, then take 1 capsule by mouth in the evening, then take 1 capsule by mouth at bedtime clindamycin (Cleocin) 300 MG capsule Indications: Cellulitis of right thumb Take 1 capsule (300 mg) by mouth in the morning and 1 capsule (300 mg) in the evening and 1 capsule (300 mg) before bedtime. Do all this for 10 days. 30 capsule 03/30/2024 04/09/2024 Active clotrimazole 10 mg/ml topical cream (2 sources) Azole Antifungal Start: 11-23-2023 End: 12-07-2023 clotrimazole (Lotrimin) 1 % cream Indications: Tinea pedis of both feet Apply topically 2 (two) times a day for 14 days 30 g 1 11/23/2023 12/07/2023 Active etonogestrel 68 mg drug implant (20 sources) Progestin etonogestrel-elu ting (Nexplanon) 68 mg contraceptive implant 1 each by Implant route 1 (one) time Active ferrous sulfate (2 sources) take 1 tablet by mouth once daily Ferrous Sulfate (IRON PO) Take 1 tablet by mouth daily Active fluticasone propionate 0.05 mg/actuat metered dose nasal spray (20 sources) Corticosteroid Start: 04-05-2023 take 2 spray(s) nasal route in the morning fluticasone (Flonase) 50 MCG/ACT nasal spray Indications: Acute cough , Chronic allergic rhinitis Administer 2 sprays into each nostril in the morning. Shake gently. Before first use, prime pump. After use, clean tip and replace cap.. 16 g 2 04/05/2023 Active folic acid 1 mg oral tablet (19 sources) Start: 03-21-2024 End: 03-21-2025 take 1 tablet by mouth once daily folic acid (Folvite) 1 MG tablet Indications: Anemia due to folic acid deficiency, unspecified deficiency type Take 1 tablet (1 mg) by mouth Daily 30 tablet 11 03/21/2024 03/21/2025 Active hydroCHLOROthiazide 12.5 mg oral tablet (20 sources) Thiazide Diuretic Start: 11-23-2023 End: 11-22-2024 take 1 tablet by mouth once daily hydroCHLOROthiazide (HYDRODiuril) 12.5 MG tablet Indications: Blood pressure elevated without history of HTN Take 1 tablet (12.5 mg) by mouth Daily 30 tablet 11 11/23/2023 11/22/2024 Active losartan potassium 25 mg oral tablet (20 sources) Angiotensin 2 Receptor Ketan Start: 03-09-2024 End: 03-09-2025 take 1 tablet by mouth once daily losartan (Cozaar) 25 MG tablet Indications: Primary hypertension (CMS/HCC) Take 1 tablet (25 mg) by mouth Daily 30 tablet 11 03/09/2024 03/09/2025 Active meloxicam 15 mg oral tablet (2 sources) Nonsteroidal Anti-inflammatory Drug take 1 tablet by mouth once daily meloxicam (MOBIC) 15 MG tablet Take 1 tablet by mouth daily Active mupirocin 0.02 mg/mg topical ointment (20 sources) RNA Synthetase Inhibitor Antibacterial Start: 03-09-2024 mupirocin (Bactroban) 2 % ointment APPLY TOPICALLY IN THE MORNING AND BEFORE BEDTIME FOR 5 DAYS 03/09/2024 Active Start: 03-09-2024 End: 03-14-2024 Mupirocin 2 % kit Indication s: Acute paronychia of right thumb Apply 1 application topically in the morning and 1 application before bedtime. Do all this for 5 days. 1 kit 03/09/2024 03/14/2024 Active naloxone hydrochloride 40 mg/ml nasal spray (20 sources) Opioid Antagonist Start: 03-02-2024 naloxone (Na rcan) 4 mg/0.1 mL nasal spray Administer 4 mg into affected nostril(s) if needed 03/02/2024 Active Start: 03-02-2024 naloxone 4 MG/ 0.1ML LIQD nasal spray 1 spray by Nasal route as needed 03/02/2024 Active nitrofurantoin, macrocrystals 25 mg / nitrofurantoin, monohydrate 75 mg oral capsule (2 sources) Nitrofuran Antibacterial Start: 07-11-2024 End: 07-18-2024 take 1 capsule by mouth in the morning nitrofurantoin, macrocrystal-monohydrate, (Macrobid) 100 MG capsule Indications: Urinary tract infection without hematuria, site unspecified Take 1 capsule (100 mg) by mouth in the morning and 1 capsule (100 mg) before bedtime. Do all this for 7 days. 14 capsule 07/11/2024 07/18/2024 Active ondansetron 4 mg oral tablet (2 sources) Serotonin-3 Receptor Antagonist take 1 tablet by mouth every eight hours as needed ondansetron (ZOFRAN) 4 MG tablet Take 1 tablet by mouth every 8 hours as needed Active phentermine hydrochloride 37.5 mg oral tablet (13 sources) Sympathomimetic Amine Anorectic Start: 06-26-2024 End: 07-26-2024 take 45-49.9 tablets by mouth before mealtime phentermine (Adipex-P) 37.5 MG tablet Indications: Class 3 severe obesity due to excess calories with serious comorbidity and body mass index (BMI) of 45.0 to 49.9 in adult , Encounter for weight management Take 1 tablet (37.5 mg) by mouth in the morning. Take before meals. 30 tablet 06/26/2024 07/26/2024 Active Start: 07-13-2023 End: 11-23-2023 take 1 tablet by mouth before mealtime phentermine (Adipex-P) 37.5 MG tablet Indications: Morbid obesity (CMS/HCC) Take 1 tablet (37.5 mg) by mouth in the morning. Take before meals. 30 tablet 08/12/2023 10/11/2023 Discontinued (Therapy completed) predniSONE 50 mg oral tablet (2 sources) Start: 06-26-2024 End: 07-02-2024 take 1 tablet by mouth once daily predniSONE (Deltasone) 50 MG tablet Indications: URI, acute Take 1 tablet (50 mg) by mouth Daily for 6 days 6 tablet 06/26/2024 07/02/2024 Active Completed/Discontinued Medications Medication Drug Class(es) Dates Sig (Normalized) Sig (Original) doxycycline hyclate 100 mg oral tablet (19 sources) Tetracycline-clas s Drug Start: 03-09-2024 End: [...] after.. 10 tablet 03/09/2024 03/14/2024 Active Start: 03-09-2024 End: 06-26-2024 take 1 tablet by mouth in the morning doxycycline (Vibra-Tabs) 100 MG tablet Take 100 mg by mouth in the morning and 100 mg before bedtime. 03/09/2024 06/26/2024 Discontinued Start: 12-09-2023 End: 12-16-2023 take 1 tablet by mouth in the morning doxycycline (Vibra-Tabs) 100 MG tablet Indications: Acute non-recurrent frontal sinusitis Take 1 tablet (100 mg) by mouth in the morning and 1 tablet (100 mg) before bedtime. Do all this for 7 days. Take with a full glass of water. 14 tablet 12/09/2023 12/16/2023 Active Vit-Fe Fumarate-FA ( Vitamins) 28-0.8 MG tablet [...] Classification Problem Date Documented Da te Episodic/Chronic Allergic reactions (1 source) Allergy status to [...] Onset: 12-25-2017 Chronic Deficiency and other anemia (1 source) Nutritional anemia; Translations: [Folate deficiency anemia, unspecified] 03-21-2024 Episodic Disorders of teeth and jaw (1 source) Periapical abscess without sinus Onset: 04-05-2018 Episodic Essential hypertension (20 sources) Essential hypertension; Translations: [Essential (primary) hypertension] Onset: 03-09-2024 03-09-2024 Chronic Fever of unknown origin (1 source) Fever, unspecified; Translations: [Fever, unspecified] Onset: 12-25-2017 Episodic Gastrointestinal hemorrhage (5 sources) Rectal hemorrhage; Translations: [Hemorrhage of anus and rectum] Onset: 05-16-2024 05-16-2024 Episodic Hepatitis (1 source) Chronic viral hepatitis C; Translations: [CHRONIC VIRAL HEPATITIS C] Onset: 04-23-2022 Chronic Menstrual disorders (4 sources) Irregular menstruation, unspecified; Translations: [IRREGULAR MENSTRUATION UNSPECIFIED] Onset: 06-15-2022 Chronic Mycoses (2 sources) Tinea pedis; Translations: [Tinea pedis] 11-23-2023 Episodic Neoplasms of unspecified nature or uncertain behavior (2 sources) Neoplasm of uncertain behavior of skin; Translations: [Neoplasm of uncertain behavior of skin] 03-30-2024 Episodic Nutritional deficiencies (1 source) Vitamin D deficiency; Translations: [Vitamin D deficiency, unspecified] 03-21-2024 Chronic Other connective tissue disease (8 sources) Pain in right foot; Translations: [Pain in right foot] 03-30-2024 Episodic Other lower respiratory disease (2 sources) Shortness of breath; Translations: [Shortness of breath] Onset: 04-05-2018 Episodic Other lower respiratory disease (2 sources) Dyspnea; Translations: [Shortness of breath] 12-27-2017 Episodic Other nutritional; endocrine; and metabolic disorders (20 sources) Morbid obesity; Translations: [Morbid (severe) obesity due to excess calories] Onset: 03-03-2023 03-03-2023 Chronic Other nutritional; endocrine; and metabolic disorders (6 sources) Severe obesity; Translations: [Class 3 severe obesity due to excess calories with serious comorbidity and body mass index (BMI) of 45.0 to 49.9 in adult] Onset: 03-03-2023 06-26-2024 Chronic Other and delivery including normal (1 source) Encounter for supervision of normal , unspecified, first trimester; Translations: [ENC SUP NORMAL PREG UNS FIRST TRI] Onset: 06-28-2022 Episodic Other screening for suspected conditions (not mental disorders or infectious disease) (4 sources) Abnormal findings on diagnostic imaging of other specified body structures; Translations: [ABNORML FIND DX IMG OTH BODY STRUC] Onset: 06-27-2022 Chronic Other skin disorders (4 sources) Localized swelling, mass and lump, head; Translations: [LOCALIZED SWELLING MASS AND LUMP HEAD] Onset: 04-22-2022 Episodic Other skin disorders (1 source) Rash and other nonspecific skin eruption; Translations: [RASH OTH NONSPECIFIC SKIN ERUPTION] Onset: 04-23-2022 Episodic Pneumonia (except that caused by tuberculosis or sexually transmitted disease) (6 sources) Pneumonia, unspecified organism; Translations: [Community acquired pneumonia] Onset: 12-26-2017 12-28-2017 Episodic Residual codes; unclassified (1 source) Tobacco use Onset: 04-05-2018 Episodic Substance-related disorders (20 sources) Nicotine dependence, [...] [CONTACT W/AND (SUSP) EXPOS COVID-19] Onset: 06-19-2022 Viral infection (8 sources) Verruca plantaris; Translations: [Plantar wart] 03-30-2024 Episodic Past or Other Problems Problem Classification Problem Date Documented Da te Episodic/Chronic Abdominal pain (4 sources) Unspecified abdominal pain; Translations: [Generalized abdominal pain] Onset: 04-30-2016 04-30-2016 Episodic Administrative/social admission (20 sources) Patient encounter status; Translations: [Persons encountering health services in other specified circumstances] Onset: 10-11-2023 Resolved: 06-26-2024 10-11-2023 Episodic Bacterial infection; unspecified site (20 sources) Bacteremia; Translations: [History of methicillin resistant Staphylococcus aureus infection] Onset: 12-26-2017 04-05-2023 Episodic Biliary tract disease (2 sources) Acute cholecystitis; Translations: [Acute cholecystitis] Onset: 04-29-2016 04-29-2016 Episodic Deficiency and other anemia (20 sources) Anemia; Translations: [Anemia, unspecified] Onset: 04-19-2023 04-19-2023 Episodic Hepatitis (2 sources) Viral hepatitis C; Translations: [Unspecified viral hepatitis C without hepatic coma] Onset: 04-29-2016 01-04-2018 Episodic Immunizations and screening for infectious disease (20 sources) Hepatitis C antibody test positive; Translations: [Other specified abnormal immunological findings in serum] Onset: 09-22-2022 04-05-2023 Episodic Malaise and fatigue (20 sources) Fatigue; Translations: [Other fatigue] Onset: 03-13-2024 Resolved: 06-26-2024 03-13-2024 Episodic Nonspecific chest pain (20 sources) Chest pain; Translations: [Other chest pain] Onset: 12-27-2017 Resolved: 06-26-2024 04-19-2023 Episodic Other bone disease and musculoskeletal deformities (20 sources) Scapulalgia; Translations: [Other specified disorders of bone, shoulder] Onset: 04-19-2023 Resolved: 06-26-2024 04-19-2023 Episodic Other circulatory disease (20 sources) Elevated blood-pressure reading without diagnosis of hypertension; Translations: [Elevated blood-pressure reading, without diagnosis of hypertension] Onset: 04-05-2023 Resolved: 06-26-2024 04-05-2023 Episodic Other connective tissue disease (2 sources) Muscle pain; Translations: [Myalgia, unspecified site] Onset: 12-27-2017 12-27-2017 Episodic Other ear and sense organ disorders (20 sources) Lesion of external ear; Translations: [Disorder of left external ear, unspecified] Onset: 05-05-2023 Resolved: 06-26-2024 05-05-2023 Episodic Other injuries and conditions due to external causes (2 sources) Finding of urine substance level; Translations: [Elevated urine levels of drugs, medicaments and biological substances] Onset: 04-29-2016 01-04-2018 Episodic Other lower respiratory disease (20 sources) Cough; Translations: [Acute cough] Onset: 04-05-2023 Resolved: 06-26-2024 04-05-2023 Episodic Other lower respiratory disease (2 sources) Cough; Translations: [Acute cough] Onset: 04-05-2023 04-05-2023 Episodic Other skin disorders (20 sources) Eruption; Translations: [Rash and other nonspecific skin eruption] Onset: 05-26-2023 Resolved: 06-26-2024 05-26-2023 Episodic Other skin disorders (20 sources) Ingrowing nail; Translations: [Ingrowing nail] Onset: 08-12-2023 Resolved: 06-26-2024 08-12-2023 Episodic Other skin disorders (20 sources) Skin lesion; Translations: [Disorder of the skin and subcutaneous tissue, unspecified] Onset: 08-12-2023 Resolved: 06-26-2024 08-12-2023 Episodic Other upper respiratory infections (20 sources) Acute upper respiratory infection; Translations: [Acute upper respiratory infection, unspecified] Onset: 03-03-2023 03-03-2023 Episodic Beverly-; endo-; and myocarditis; cardiomyopathy (except that caused by tuberculosis or sexually transmitted disease) (20 sources) Acute and subacute infective endocarditis; Translations: [Bacterial endocarditis] Onset: 12-26-2017 Resolved: 06-26-2024 04-05-2023 Episodic Pleurisy; pneumothorax; pulmonary collapse (2 sources) Pleurisy; Translations: [Pleurisy] Onset: 12-27-2017 12-27-2017 Episodic Pulmonary heart disease (20 sources) Septic pulmonary embolism; Translations: [Septic pulmonary embolism without acute cor pulmonale] Onset: 04-05-2023 Resolved: 06-26-2024 04-05-2023 Episodic Residual codes; unclassified (2 sources) Noncompliance with treatment; Translations: [Noncompliance] Onset: 12-26-2017 12-26-2017 Episodic Skin and subcutaneous tissue infections (20 sources) Paronychia of thumb; Translations: [Cellulitis of right finger] Onset: 03-09-2024 Resolved: 06-26-2024 03-09-2024 Episodic Substance-related disorders (2 sources) Intravenous drug user; Translations: [Other psychoactive substance use, unspecified, uncomplicated] Onset: 04-29-2016 01-04-2018 Episodic Unclassified (1 source) HIGH GRADE BACTREMIA,GNR MRSA,MULTIPLE PULMONARY NODULES; Translations: [HIGH GRADE BACTREMIA,GNR MRSA,MULTIPLE PULMONARY NODULES] Onset: 01-05-2018 Unclassified (1 source) CONTACT W/AND (SUSP) EXPOS COVID-19; Translations: [CONTACT W/AND (SUSP) EXPOS COVID-19] Onset: 06-16-2022 Results Test Name Value Interpretation Reference Range Facility HCG Qualitative, Serumon HCG ( test) Ql Negative NEGATIVE [facility] Comment on above: Specimens with hCG l evels near the threshold of the test (25 mIU/mL) may give a negative or indeterminate result. In such cases, another test should be performed with a new specimen in 48-72 hours. If early is suspected clinically in this setting, correlation with quantitative serum b-hCG level is suggested. [facility] has confirmed the use of plasma for this test. This has not been cleared or approved by the U.S. Food and Drug Administration. The FDA has determined that such clearance is not necessary. [facility] HCG Screen, Bloodon 06-23-19 25 HCG Screen, Blood Negative Normal NEG [facility] Comment on above: Result Comment: Spec imens with hCG levels near the threshold of the test (25 mIU/mL) may give a negative or indeterminate result. In such cases, another test should be performed with a new specimen in 48-72 hours. If early is suspected clinically in this setting, correlation with quantitative serum b-hCG level is suggested. [employer] has confirmed the use of plasma for this test. This has not been cleared or approved by the U.S. Food and Drug Administration. The FDA has determined that such clearance is not necessary. Performed By: #### H CG #### [facility] [address] [place] [address] Pipe Welder: Gabo Brink MD EKG 12 LeadOrdered By: Umair Seaman on 05-22-2024 Atrial Rate 76 BPM [facility] Work Phone: P [place] 43 degrees [facility] Work Phone: P-R Interval 140 ms [facility] Work Phone: Q-T Interval 412 ms [facility] Work Phone: QRS Duration 88 ms [facility] [employer] Work Phone: QTc Calculation (Bazett) 463 ms [facility] Work Phone: R [place] 35 degrees [facility] Work Phone: T [place] 41 degrees [facility] Work Phone: Ventricular Rate 76 BPM [place] [employer] Work Phone: [facility] [employer] Work Phone: EKG 12 Leadon 05-22-2024 Normal sinus rhythm Normal ECG No previous ECGs available Confirmed by RODRIGO SEAMAN ([id number]) on 05/22/2024 12:04:18 AM [facility] Rodrigo Seaman MD - 05/22/2024 Normal sinus rhythm Normal ECG No previous ECGs available Confirmed by RODRIGO SEAMAN ([id number]) on 05/22/2024 12:04:18 AM [facility] OCCULT BLOOD*on 03-21-2024 Interpretation and review of laboratory results Abnormal [facility] OCCULT BLOOD Positive Abnormal [facility] METRO IRON AND TIBCon 2024 [facility] IRON 95 ug/dL 50.0 - 170.0 ug/dL [facility] PERCENT IRON SATURATION 37 % [facility] TOTAL IRON BINDING CAPACITY 257 ug/dL 250.0 - 450.0 ug/dL [facility] ALL CBC WITH AUTO DIFFon BASOPHILS ABSOLUTE AUTO 0.1 [facility] Basophils/100 WBC (Bld) 1.5 % 0.2 - 2.0 % [facility] Eosinophils/100 WBC (Bld) 6.4 % 0.9 - 7.0 % [facility] Erythrocyte distribution width (RBC) [Ratio] 13.2 % 11.0 - 15.0 % [facility] Hematocrit (Bld) [Volume fraction] 36.9 % 36.0 - 48.0 % [facility] Hemoglobin (Bld) [Mass/Vol] 12.2 g/dL 12.0 - 16.0 g/dL [facility] IMMATURE GRANULOCYTES ABS AUTO 0.01 [facility] Immature granulocytes/100 WBC (Bld) 0.3 % 0.0 - 0.5 % [facility] Interpretation and review of laboratory results Abnormal [facility] LYMPHOCYTES ABSOLUTE AUTO 0.8 Low [facility] Lymphocytes/100 WBC (Bld) 21.8 % 20.5 - 60.0 % [facility] MCH (RBC) [Entitic mass] 29.6 pg 26.7 - 34.0 pg [facility] MCHC (RBC) [Mass/Vol] 33.1 g/dL 29.9 - 35.2 g/dL [facility] MCV (RBC) [Entitic vol] 89.6 fL 81.0 - 99.0 fL [facility] MONOCYTES ABSOLUTE AUTO 0.3 [facility] Monocytes/100 WBC (Bld) 9.6 % 1.7 - 12.0 % [facility] NEUTROPHILS ABSOLUTE AUTO 2.1 [facility] Neutrophils/100 WBC (Bld) 60.4 % 43.0 - 75.0 % [facility] Platelet mean volume (Bld) [Entitic vol] 10.3 fL 9.5 - 13.5 fL [facility] TBH EO # 0.2 [facility] TB PLT 139 Low [facility] TBH RBC 4.12 Low [facility]H WBC 3.4 Low [facility] Otolaryngology Office/Clinic Noteon 07-14-2022 [...] Liliane Devries PA-C 07/18/22 11:45 EDT Normal [facility] Otolaryngology Office/Clinic Noteon 07-06-2022 Otolaryngology Office/Clinic [...] g, 0 Refill(s), 07/20/22 15:17:00 EDT, Pharmacy: [facility]/pharmacy #[id number] Medical Decision Making Chronic conditions NOT treated [...] clare, Topical, BID doxylamine, Oral Suboxone, Oral Jtiendra (more content not included)... Normal [facility] US PREG TVon 06-26-2022 US PREG [...] weeks 3 days. Electronically authenticated by: RODRIGO NASHJOLIE Date: 2022-06-26 09:18 Normal [facility] Covid-19 PCR (CVDTB)on SARS-CoV-2 (COVID-19) RNA JANET+probe Ql (Unsp spec) Not detected Normal NOT DETECTED [facility] Comment on above: Result Comment: This test is not yet approved or cleared by the [place] FDA. When there are no FDA-approved or cleared tests available, and other criteria are met, FDA can make tests available under an emergency access mechanism called an Emergency Use Authorization (EUA). The EUA for this test is supported by the Disc Pad Plate Filler of Health and Human Service's (HHS's) declaration [...] consistent with SARS-CoV-2. Performed By: #### C VDTBH #### [facility] [address] [place] [address] Dr. Ja Cohen INFLUENZA A AND B AGon 06-16 [facility] SEE BELOW Normal [facility] Comment on above: Result Comment: Nega tive for Flu A protein angiten. Infection due to Flu A cannot be ruled out. Flu A angiten in the sample may be below the detection limit of the test. Performed By: #### I NFLUAB #### [facility] [address] [place] [address] Dr. [facility] Normal [facility] Comment on above: Result Comment: Nega tive for Flu B protein antigen. Infection due to Flu B cannot be ruled out. Flu B antigen in the sample may be below the detection limit of the test. Performed By: #### I NFLUAB #### [facility] [address] [place] [address] Dr. Ja Cohen INFLUENZA A AG Negative Normal NEGATIVE SEE COMMENT [facility] Comment on above: Performed By: #### I NFLUAB #### [facility] [address] [place] [address] Dr. Ja Cohen INFLUENZA B AG Negative Normal NEGATIVE SEE COMMENT [facility] Comment on above: Performed By: #### I NFLUAB #### [facility] [address] [place] [address] Dr. Ja Cohen SYMPTOMATIC COVID-19 ANTIGEN on 06-16-2022 EUA Statement SEE BELOW Normal [facility] Comment on above: Result Comment: This test [...] sooner. Performed By: #### C VDAGS #### [facility] [address] [place] [address] Dr. Ja Cohen SARS-CoV-2 (COVID-19) RNA JNAET+probe Ql (Unsp spec) Negative Normal NEGATIVE [facility] Comment on above: Performed By: #### C VDAGS #### [facility] [address] [place] [address] Dr. Ja Cohen PREG QUANT HCGon 06-11-2022 HCG QUANT 74279 mIU/mL Normal [facility] Comment on above: Performed By: #### P REGQNT #### [facility] [address] [place] [address] Dr. Ja Cohen HCG RANGE SEE BELOW Normal [facility] Comment on above: Result Comment: 5-50 0.2-1 WEEK 50-500 1-2 WEEKS 100-5,000 2-3 WEEKS 500-10,000 3-4 WEEKS 1,000-50,000 4-5 WEEKS 10,000-100,000 5-6 WEEKS 15,000-200,000 6-8 WEEKS 10,000-100,000 2-3 MONTHS Performed By: #### P REGQNT #### [facility] [address] [address] [address] Ja Cohen ECHOCARDIO M/2D COMPLETEon 0 08-11-2021 ECHOCARDIO M/2D COMPLETE Patient: ALESHA KENNEY Exam Date: 08/11/2021 : 1985 Gender:F Ordering : SHAIKH Addy HOPSON . Admission #: [id number] Family : Order #: [id number] CLICK HERE TO VIEW EXAM ECHOCARDIOGRAM REPORT [...] Area(A4C): 23.40 cm2 Left Atrium Systolic Volume(A2C): 06681 mm3 Left Atrium Systolic Volume(A4C): 27552 mm3 Mitral Valve MV E to A Ratio: 1.90 MV Mean Gradient: 1 mm[Hg] Deceleration Merrick: 6410 mm/s2 Mitral Valve A-Wave Peak Velocity: [...] Mederos M.D. on 08/11/2021 at 12:50 Normal [facility] AFB Culture with Stainon AFB Stain SEE NOTE [facility] Comment on above: Result Comment: Nega tive for Acid Fast Bacteria.Less than 5 mL of specimen received.A minimum of 5 mL of sputum or fluid is recommendedfor recovery of acid fast bacilli (AFB).Volumes less than 5 mL are suboptimal and maycompromise recovery of AFB from culture. Final SEE NOTE [facility] Comment on above: Result Comment: Cult ure negative for acid fast bacilliPerformed by [facility],[address] [facility] [address] okt.[employer], Artur Agustin MD - Lab. Director Preliminary SEE NOTE [facility] Comment on above: Result Comment: Spec imen received and in progress.Positive culture results are called as soon as detected.Final report to follow in seven to eight weeksPerformed by moneymeets,[address] [facility] [address] lib.[employer], Artur Agustin MD - Lab. Director AFB Stain SEE NOTE [facility] Comment on above: Order Comment: CALL [facility] LC1W tel. [phone], called hgb to ramila oseguera rn on 1w by scbHematology results called to and read back by ramila oseguera on 1w, 12/27/201706:44, by BON Result Comment: Nega tive for Acid Fast Bacteria. Order Comment: Bronc h wash RULBronch Wash RUL Final SEE NOTE [facility] Comment on above: Order Comment: Bronc h wash RULBronch Wash RUL Result Comment: Cult ure negative for acid fast bacilliPerformed by [facility]oneyme[facility],[address] [facility] [address] whu.[employer], Artur Agustin MD - Lab. Director Order Comment: CALL [facility] LC1W tel. [phone], called hgb to ramila oseguera rn on 1w by scbHematology results called to and read back by ramila oseguera on 1w, 12/27/201706:44, by BONSA Basic Metabolic Panelon 01-15 Anion gap 3 molar conc 10 mmol/L Normal 7-13 [facility] Calcium mass conc 8.7 mg/dL Normal 8.6-10.2 [facility] Chloride molar conc 105 mmol/L Normal 98-107 [facility] CO2 molar conc 26 mmol/L Normal 22-29 [facility] Creatinine mass conc 0.60 mg/dL Normal 0.50-0.90 [facility] GFR/1.73 sq M predicted among blacks MDRD vol rate/area (S/P/Bld) mL/min/{1.73_m2} Normal >60 [facility] Comment on above: Result Comment: >60 mL/min/1.73m2 EGFR, calc. for ages 18 and older using theMDRD formula (not corrected for weight), is valid for stablerenal function. GFR/1.73 sq M.predicted MDRD vol rate/area mL/min/{1.73_m2} Normal >60 [facility] Comment on above: Result Comment: >60 mL/min/1.73m2 EGFR, calc. for ages 18 and older using theMDRD formula (not corrected for weight), is valid for stablerenal function. Glucose mass conc 101 mg/dL Normal 74-109 [facility] Potassium molar conc 4.5 mmol/L Normal 3.5-5.1 [facility] Sodium molar conc 141 mmol/L Normal 132-144 [facility] Urea nitrogen mass conc 15 mg/dL Normal 6-20 [facility] CBC With Platelet No Differe ari 02-01-2018 Erythrocyte distribution width Auto Ratio (RBC) 23.7 % Critically high 11.5-14.5 [facility] Hematocrit Auto Volume Fraction (Bld) 28.0 % Low 37.0-47.0 [facility] Hemoglobin mass conc (Bld) 9.3 g/dL Low 12.0-16.0 [facility] MCH Auto Entitic mass (RBC) 29.1 pg Normal 27.0-31.3 [facility] MCHC Auto mass conc (RBC) 33.1 % Normal 33.0-37.0 [facility] MCV Auto Entitic volume (RBC) 87.9 fL Normal 82.0-100.0 [facility] Platelets Auto #/vol (Bld) 229 10*3/uL Normal 130-400 [facility] RBC Auto #/vol (Bld) 3.19 10*6/uL Low 4.20-5.40 [facility] WBC Auto #/vol (Bld) 2.7 10*3/uL Low 4.8-10.8 [facility] Culture, Funguson 01-29-2018 Final SEE NOTE Normal [facility] Comment on above: Order Comment: CALL [facility] LC1W tel. [phone], called hgb to ramila oseguera rn on 1w by scbHematology results called to and read back by ramila oseguera on 1w, 12/27/201706:44, by BON Result Comment: Cult ure negative for FungiPerformed by moneymeets,[address] [facility], [facility] [place] [address] ixu.[employer], Artur Agustin MD - Lab. Director Basic Metabolic Panelon 01-15 Anion gap 3 molar conc 9 mmol/L Normal 7-13 [facility] Calcium mass conc 9.5 mg/dL Normal 8.6-10.2 [facility] Chloride molar conc 106 mmol/L Normal 98-107 [facility] CO2 molar conc 27 mmol/L Normal 22-29 [facility] Creatinine mass conc 0.71 mg/dL Normal 0.50-0.90 [facility] GFR/1.73 sq M predicted among blacks MDRD vol rate/area (S/P/Bld) mL/min/{1.73_m2} Normal >60 [facility] Comment on above: Result Comment: >60 mL/min/1.73m2 EGFR, calc. for ages 18 and older using theMDRD formula (not corrected for weight), is valid for stablerenal function. GFR/1.73 sq M.predicted MDRD vol rate/area mL/min/{1.73_m2} Normal >60 [facility] Comment on above: Result Comment: >60 mL/min/1.73m2 EGFR, calc. for ages 18 and older using theMDRD formula (not corrected for weight), is valid for stablerenal function. Glucose mass conc 93 mg/dL Normal 74-109 [facility] Potassium molar conc 4.7 mmol/L Normal 3.5-5.1 [facility] Sodium molar conc 142 mmol/L Normal 132-144 [facility] Urea nitrogen mass conc 14 mg/dL Normal 6-20 [facility] CBC With Platelet and Differ entialon 01-25-2018 Anisocytosis Auto Ql (Bld) PRESENT Normal [facility] Erythrocyte distribution width Auto Ratio (RBC) 28.7 % Critically high 11.5-14.5 [facility] Hematocrit Auto Volume Fraction (Bld) 24.9 % Low 37.0-47.0 [facility] Hemoglobin mass conc (Bld) 8.3 g/dL Low 12.0-16.0 [facility] MCH Auto Entitic mass (RBC) 28.2 pg Normal 27.0-31.3 [facility] MCHC Auto mass conc (RBC) 33.1 % Normal 33.0-37.0 [facility] MCV Auto Entitic volume (RBC) 85.0 fL Normal 82.0-100.0 [facility] Platelets Auto #/vol (Bld) 225 10*3/uL Normal 130-400 [facility] RBC Auto #/vol (Bld) 2.93 10*6/uL Low 4.20-5.40 [facility] Basophils Auto #/vol (Bld) 0.0 10*3/uL Normal 0.0-0.2 [facility] Basophils/100 WBC Auto (Bld) 1.0 % Normal [facility] Eosinophils Auto #/vol (Bld) 0.3 10*3/uL Normal 0.0-0.7 [facility] Eosinophils/100 WBC Auto (Bld) 5.4 % Normal [facility] Lymphocytes Auto #/vol (Bld) 1.7 10*3/uL Normal 1.0-4.8 [facility] Lymphocytes/100 WBC Auto (Bld) 37.1 % Normal [facility] Monocytes Auto #/vol (Bld) 0.2 10*3/uL Normal 0.2-0.8 [facility] Monocytes/100 WBC Auto (Bld) 5.1 % Normal [facility] Neutrophils Auto #/vol (Bld) 2.4 10*3/uL Normal 1.4-6.5 [facility] Neutrophils/100 WBC Auto (Bld) 51.4 % Normal [facility] WBC Auto #/vol (Bld) 4.7 10*3/uL Low 4.8-10.8 [facility] Culture, Funguson 01-24-2018 Final SEE NOTE Normal [facility] Comment on above: Order Comment: Bronc h Wash LLLBronch Wash LLL Result Comment: Cult ure POSITIVE forYeast not Cryptococcus speciesPerformed by moneymeets,[address] [facility] [address] hbk.[employer], Artur Agustin MD - Lab. Director Preliminary SEE NOTE Normal [facility] Comment on above: Order Comment: Bronc h Wash LLLBronch Wash LLL Result Comment: Cult ure POSITIVE forYeast not Cryptococcus speciesPerformed by moneymeets,[address] [facility] [address] cqm.[employer], Artur Agustin MD - Lab. Director Basic Metabolic Panelon Anion gap 3 molar conc 10 mmol/L Normal 7-13 [facility] Calcium mass conc 9.4 mg/dL Normal 8.6-10.2 [facility] Chloride molar conc 102 mmol/L Normal 98-107 [facility] CO2 molar conc 27 mmol/L Normal 22-29 [facility] Creatinine mass conc 0.70 mg/dL Normal 0.50-0.90 [facility] GFR/1.73 sq M predicted among blacks MDRD vol rate/area (S/P/Bld) mL/min/{1.73_m2} Normal >60 [facility] Comment on above: Result Comment: >60 mL/min/1.73m2 EGFR, calc. for ages 18 and older using theMDRD formula (not corrected for weight), is valid for stablerenal function. GFR/1.73 sq M.predicted MDRD vol rate/area mL/min/{1.73_m2} Normal >60 [facility] Comment on above: Result Comment: >60 mL/min/1.73m2 EGFR, calc. for ages 18 and older using theMDRD formula (not corrected for weight), is valid for stablerenal function. Glucose mass conc 73 mg/dL Low 74-109 [facility] Potassium molar conc 4.6 mmol/L Normal 3.5-5.1 [facility] Sodium molar conc 139 mmol/L Normal 132-144 [facility] Urea nitrogen mass conc 15 mg/dL Normal 6-20 [facility] CBC With Platelet No Differe ntialon 01-21-2018 Erythrocyte distribution width Auto Ratio (RBC) 24.9 % Critically high 11.5-14.5 [facility] Hematocrit Auto Volume Fraction (Bld) 24.4 % Low 37.0-47.0 [facility] Hemoglobin mass conc (Bld) 8.1 g/dL Low 12.0-16.0 [facility] MCH Auto Entitic mass (RBC) 28.3 pg Normal 27.0-31.3 [facility] MCHC Auto mass conc (RBC) 33.3 % Normal 33.0-37.0 [facility] MCV Auto Entitic volume (RBC) 85.0 fL Normal 82.0-100.0 [facility] Platelets Auto #/vol (Bld) 184 10*3/uL Normal 130-400 [facility] RBC Auto #/vol (Bld) 2.88 10*6/uL Low 4.20-5.40 [facility] WBC Auto #/vol (Bld) 4.6 10*3/uL Low 4.8-10.8 [facility] Basic Metabolic Panelon 11-2 Anion gap 3 molar conc 10 mmol/L Normal 7-13 [facility] Calcium mass conc 9.3 mg/dL Normal 8.6-10.2 [facility] Chloride molar conc 106 mmol/L Normal 98-107 [facility] CO2 molar conc 26 mmol/L Normal 22-29 [facility] Creatinine mass conc 0.93 mg/dL Critically high 0.50-0.90 [facility] GFR/1.73 sq M predicted among blacks MDRD vol rate/area (S/P/Bld) mL/min/{1.73_m2} Normal >60 [facility] Comment on above: Result Comment: >60 mL/min/1.73m2 EGFR, calc. for ages 18 and older using theMDRD formula (not corrected for weight), is valid for stablerenal function. GFR/1.73 sq M.predicted MDRD vol rate/area mL/min/{1.73_m2} Normal >60 [facility] Comment on above: Result Comment: >60 mL/min/1.73m2 EGFR, calc. for ages 18 and older using theMDRD formula (not corrected for weight), is valid for stablerenal function. Glucose mass conc 103 mg/dL Normal 74-109 [facility] Potassium molar conc 4.5 mmol/L Normal 3.5-5.1 [facility] Sodium molar conc 142 mmol/L Normal 132-144 [facility] Urea nitrogen mass conc 17 mg/dL Normal 6-20 [facility] CBC With Platelet and Differ entialon 01-11-2018 Anisocytosis Auto Ql (Bld) PRESENT Normal [facility] Erythrocyte distribution width Auto Ratio (RBC) 23.8 % Critically high 11.5-14.5 [facility] Hematocrit Auto Volume Fraction (Bld) 25.6 % Low 37.0-47.0 [facility] Hemoglobin mass conc (Bld) 8.4 g/dL Low 12.0-16.0 [facility] Hypochromia PRESENT Normal [facility] MCH Auto Entitic mass (RBC) 26.5 pg Low 27.0-31.3 [facility] MCHC Auto mass conc (RBC) 32.8 % Low 33.0-37.0 [facility] MCV Auto Entitic volume (RBC) 80.9 fL Low 82.0-100.0 [facility] Platelets Auto #/vol (Bld) 259 10*3/uL Normal 130-400 [facility] RBC Auto #/vol (Bld) 3.16 10*6/uL Low 4.20-5.40 [facility] Basophils Auto #/vol (Bld) 0.1 10*3/uL Normal 0.0-0.2 [facility] Basophils/100 WBC Auto (Bld) 1.5 % Normal [facility] Eosinophils Auto #/vol (Bld) 0.2 10*3/uL Normal 0.0-0.7 [facility] Eosinophils/100 WBC Auto (Bld) 4.2 % Normal [facility] Lymphocytes Auto #/vol (Bld) 1.9 10*3/uL Normal 1.0-4.8 [facility] Lymphocytes/100 WBC Auto (Bld) 40.0 % Normal [facility] Monocytes Auto #/vol (Bld) 0.1 10*3/uL Low 0.2-0.8 [facility] Monocytes/100 WBC Auto (Bld) 3.1 % Normal [facility] Neutrophils Auto #/vol (Bld) 2.4 10*3/uL Normal 1.4-6.5 [facility] Neutrophils/100 WBC Auto (Bld) 51.2 % Normal [facility] WBC Auto #/vol (Bld) 4.6 10*3/uL Low 4.8-10.8 [facility] Culture, Funguson 01-08-2018 Preliminary SEE NOTE Normal [facility] Comment on above: Order Comment: CALL [facility] LC1W tel. [phone], called hgb to ramila oseguera rn on 1w by scbHematology results called to and read back by ramila oseguera on 1w, 12/27/201706:44, by RAYSHAWN Result Comment: No aNthan tereza, culture still in progress.Performed by [employer],[address] [place] [address],[place] [address] utx.[employer], Artur Agustin MD - Lab. Director CBC With Platelet and Differ entialon 01-04-2018 Anisocytosis Auto Ql (Bld) 2+ Normal [facility] Bands 2 % Low 5-11 [facility] Basophils Auto #/vol (Bld) 0.1 10*3/uL Normal 0.0-0.2 [facility] Basophils/100 WBC Auto (Bld) 1.0 % Normal [facility] Eosinophils Auto #/vol (Bld) 0.2 10*3/uL Normal 0.0-0.7 [facility] Eosinophils/100 WBC Auto (Bld) 2.0 % Normal [facility] Lymphocytes Auto #/vol (Bld) 0.7 10*3/uL Low 1.0-4.8 [facility] Lymphocytes/100 WBC Auto (Bld) 9.0 % Normal [facility] Macrocytic 1+ Normal [facility] Microcytic 1+ Normal [facility] Monocytes Auto #/vol (Bld) 0.0 10*3/uL Low 0.2-0.8 [facility] Monocytes/100 WBC Auto (Bld) 4.4 % Normal [facility] Neutrophils Auto #/vol (Bld) 6.8 10*3/uL Critically high 1.4-6.5 [facility] Neutrophils/100 WBC Auto (Bld) 86.0 % Normal [facility] Ovalocytes 1+ Normal [facility] Platelet Slide Review Normal Normal [facility] Poikilocytosis 2+ Normal [facility] Tear Drop Cells 1+ Normal [facility] Erythrocyte distribution width Auto Ratio (RBC) 20.4 % Critically high 11.5-14.5 [facility] Hematocrit Auto Volume Fraction (Bld) 22.7 % Low 37.0-47.0 [facility] Hemoglobin mass conc (Bld) 7.4 g/dL Low 12.0-16.0 [facility] MCH Auto Entitic mass (RBC) 26.3 pg Low 27.0-31.3 [facility] MCHC Auto mass conc (RBC) 32.5 % Low 33.0-37.0 [facility] MCV Auto Entitic volume (RBC) 80.8 fL Low 82.0-100.0 [facility] Platelets Auto #/vol (Bld) 234 10*3/uL Normal 130-400 [facility] RBC Auto #/vol (Bld) 2.81 10*6/uL Low 4.20-5.40 [facility] WBC Auto #/vol (Bld) 7.7 10*3/uL Normal 4.8-10.8 [facility] Respiratory Virus Panel by Bret Solis 01-04-2018 Adenovirus B/E - PCR Not Detected Normal [facility] Adenovirus C - PCR Not Detected Normal [facility] Comment on above: Result Comment: The specimen submitted for testing did not meet ARUPsubmission guidelines. Testing was performed on a specimenthat did not meet validated type requirements.Performance characteristics of this assay may be affected.Interpret results with caution. Please refer to the [facility] Test Directory for information on specimenacceptability:[email or web address].Test developed and characteristics determined by [facility]. See Compliance Statement B: [employer]/CS.Performed by [employer],[address] [place] [address] pos.[employer], Artur Agustin MD - Lab. Director Human Metapneumovirus - PCR Not Detected Normal [facility] Human Rhinovirus - PCR Not Detected Normal [facility] Influenza A - PCR Not Detected Normal [facility] Influenza A 2009 H1N1 - PCR Not Detected Normal [facility] Influenza A H1 - PCR Not Detected Normal [facility] Influenza A H3 - PCR Not Detected Normal [facility] Influenza B - PCR Not Detected Normal [facility] Parainfluenza Virus 1 - PCR Not Detected Normal [facility] Parainfluenza Virus 2 - PCR Not Detected Normal [facility] Parainfluenza Virus 3 - PCR Not Detected Normal [facility] Respiratory Syncytial Virus A - PCR Not Detected Normal [facility] Respiratory Syncytial Virus B - PCR Not Detected Normal [facility] RVP Source Bronch Wash RUL Normal [facility] CBC With Platelet and Differ entialon 01-02-2018 Basophils Auto #/vol (Bld) 0.1 10*3/uL Normal 0.0-0.2 [facility] Basophils/100 WBC Auto (Bld) 0.8 % Normal [facility] Eosinophils Auto #/vol (Bld) 0.1 10*3/uL Normal 0.0-0.7 [facility] Eosinophils/100 WBC Auto (Bld) 1.6 % Normal [facility] Erythrocyte distribution width Auto Ratio (RBC) 19.9 % Critically high 11.5-14.5 [facility] Hematocrit Auto Volume Fraction (Bld) 22.0 % Low 37.0-47.0 [facility] Hemoglobin mass conc (Bld) 7.3 g/dL Low 12.0-16.0 [facility] Lymphocytes Auto #/vol (Bld) 1.2 10*3/uL Normal 1.0-4.8 [facility] Lymphocytes/100 WBC Auto (Bld) 19.0 % Normal [facility] MCH Auto Entitic mass (RBC) 26.8 pg Low 27.0-31.3 [facility] MCHC Auto mass conc (RBC) 33.4 % Normal 33.0-37.0 [facility] MCV Auto Entitic volume (RBC) 80.4 fL Low 82.0-100.0 [facility] Monocytes Auto #/vol (Bld) 0.3 10*3/uL Normal 0.2-0.8 [facility] Monocytes/100 WBC Auto (Bld) 4.9 % Normal [facility] Neutrophils Auto #/vol (Bld) 4.8 10*3/uL Normal 1.4-6.5 [facility] Neutrophils/100 WBC Auto (Bld) 73.7 % Normal [facility] Platelets Auto #/vol (Bld) 248 10*3/uL Normal 130-400 [facility] RBC Auto #/vol (Bld) 2.74 10*6/uL Low 4.20-5.40 [facility] WBC Auto #/vol (Bld) 6.5 10*3/uL Normal 4.8-10.8 [facility] Rejection Notificationon Rejected Test FOB Normal [facility] Rejected Test FOB Normal [facility] AFB Culture with Stainon Preliminary SEE NOTE Normal [facility] Comment on above: Order Comment: Bronc h wash RULBronch Wash RUL Result Comment: Spec imen received and in progress.Positive culture results are called as soon as detected.Final report to follow in seven to eight weeksPerformed by [employer],[address] [facility] [address] unk.[employer], Artur Agustin MD - Lab. Director Preliminary SEE NOTE Normal [facility] Comment on above: Order Comment: CALL [facility] LC1W tel. [phone], called hgb to ramila oseguera rn on 1w by scematology results called to and read back by ramila oseguera on 1w, 12/27/201706:44, by BONSA Result Comment: Spec imen received and in progress.Positive culture results are called as soon as detected.Final report to follow in seven to eight weeksPerformed by [facility],[address] [facility] [address] som.[employer], Artur Agustin MD - Lab. Director CBC With Platelet and Differ entialon 01-01-2018 Basophils Auto #/vol (Bld) 0.0 10*3/uL Normal 0.0-0.2 [facility] Comment on above: Order Comment: CALL [facility] tel. [phone], called hgb to ramila oseguera rn on 1w by scbHematology results called to and read back by ramila june on 1w, 12/27/201706:44, by BONSA Basophils/100 WBC Auto (Bld) 0.8 % Normal [facility] Comment on above: Order Comment: CALL [facility] tel. [phone], called hgb to ramila june rn on 1w by scbHematology results called to and read back by ramila june on 1w, :44, by BONSA Eosinophils Auto #/vol (Bld) 0.1 10*3/uL Normal 0.0-0.7 [facility] Comment on above: Order Comment: CALL [address] tel. [phone], called hgb to ramila june rn on 1w by scbHematology results called to and read back by ramila june on 1w, :44, by BONSA Eosinophils/100 WBC Auto (Bld) 1.8 % Normal [facility] Comment on above: Order Comment: CALL [address] tel. [phone], called hgb to ramila june rn on 1w by scbHematology results called to and read back by ramila june on 1w, :44, by BONSA Erythrocyte distribution width Auto Ratio (RBC) 18.6 % Critically high 11.5-14.5 [facility] Comment on above: Order Comment: CALL [facility] tel. [phone], called hgb to ramila june rn on 1w by scbHematology results called to and read back by ramila june on 1w, :44, by BONSA Hematocrit Auto Volume Fraction (Bld) 20.1 % Critically low 37.0-47.0 [facility] Comment on above: Order Comment: CALL [facility] tel. [phone], called hgb to ramila june rn on 1w by scbHematology results called to and read back by ramila oseguera on 1w, :44, by BONSA Hemoglobin mass conc (Bld) 6.7 g/dL Critically low 12.0-16.0 [facility] Comment on above: Order Comment: CALL [facility] tel. [phone], called hgb to ramila oseguera rn on 1w by scbHematology results called to and read back by ramila oseguera on 1w, :44, by BONSA Result Comment: veri fied by repeat Lymphocytes Auto #/vol (Bld) 0.9 10*3/uL Low 1.0-4.8 [facility] Comment on above: Order Comment: CALL [facility] tel. [phone], called hgb to ramila oseguera rn on 1w by scbHematology results called to and read back by ramila june on 1w, :44, by RAYSHAWN Lymphocytes/100 WBC Auto (Bld) 18.3 % Normal [facility] Comment on above: Order Comment: CALL [address] tel. [phone], called hgb to ramila oseguera rn on 1w by scbHematology results called to and read back by ramila june on 1w, :44, by BONSA MCH Auto Entitic mass (RBC) 26.5 pg Low 27.0-31.3 [facility] Comment on above: Order Comment: CALL [address] tel. [phone], called hgb to ramila oseguera rn on 1w by scbHematology results called to and read back by ramila oseguera on 1w, :44, by BONSA MCHC Auto mass conc (RBC) 33.1 % Normal 33.0-37.0 [facility] Comment on above: Order Comment: CALL [facility] tel. [phone], called hgb to ramila oseguera rn on 1w by scbHematology results called to and read back by ramila oseguera on 1w, :44, by BONSA MCV Auto Entitic volume (RBC) 80.0 fL Low 82.0-100.0 [facility] Comment on above: Order Comment: [facility] tel. [phone], called hgb to ramila oseguera rn on 1w by scbHematology results called to and read back by ramila june on 1w, :44, by BONSA Monocytes Auto #/vol (Bld) 0.3 10*3/uL Normal 0.2-0.8 [facility] Comment on above: Order Comment: CALL [address] tel. [phone], called hgb to ramila oseguera rn on 1w by scbHematology results called to and read back by ramila june on 1w, :44, by BONSA Monocytes/100 WBC Auto (Bld) 5.4 % Normal [facility] Comment on above: Order Comment: CALL [address] tel. [phone], called hgb to ramila oseguera rn on 1w by scbHematology results called to and read back by ramila june on 1w, :44, by BONSA Neutrophils Auto #/vol (Bld) 3.8 10*3/uL Normal 1.4-6.5 [facility] Comment on above: Order Comment: CALL [address] tel. [phone], called hgb to ramila oseguera rn on 1w by scbHematology results called to and read back by ramila june on 1w, :44, by BONSA Neutrophils/100 WBC Auto (Bld) 73.7 % Normal [facility] Comment on above: Order Comment: CALL [address] tel. [phone], called hgb to ramila oseguera rn on 1w by scbHematology results called to and read back by ramila june on 1w, :44, by BONSA Platelets Auto #/vol (Bld) 174 10*3/uL Normal 130-400 [facility] Comment on above: Order Comment: CALL [address] tel. [phone], called hgb to ramila oseguera rn on 1w by scbHematology results called to and read back by ramila june on 1w, :44, by BONSA RBC Auto #/vol (Bld) 2.51 10*6/uL Low 4.20-5.40 [facility] Comment on above: Order Comment: [facility] tel. [phone], called hgb to ramila june rn on 1w by scbHematology results called to and read back by ramila june on 1w, 12/27/201706:44, by RAYSHAWN WBC Auto #/vol (Bld) 5.1 10*3/uL Normal 4.8-10.8 [facility] Comment on above: Order Comment: CALL [facility] tel. [phone], called hgb to ramila june rn on 1w by scbHematology results called to and read back by ramila june on 1w, 12/27/201706:44, by RAYSHAWN Bacterial susceptibility fox el by Elvia 12-31-2017 Bacterial susceptibility panel by Minimum inhibitory concentration (ISRA) ORDERED BY: LESLIE PENALOZA: Blood COLLECTED: 12/31/17 00:40ANTIBIOTICS AT RADHA.: RECEIVED : 12/31/17 01:26CALL [facility] tel. [phone],Blood culture results called to and read back by Henri Christine, 01/01/2018 13:30, by Heavenly Geiger 2 FINAL 01/03/18 07:41 1 out of 2 blood cultures POSITIVE for Serratia marcescens S. marces ANTIBIOTICS ISRA Interp A moxicillin/Clavulanate >=32 R Cefepime <=1 S Ceftriaxone <=1 S Ciprofloxacin <=0.25 S Gentamicin <=1 S Trimethoprim/Sulfamethoxaz ole <=20 S S=SUSCEPTIBLE I=INTERMEDIATE R=RESISTANT Normal [facility] CBC With Platelet and Differ entialon 12-31-2017 Basophils Auto #/vol (Bld) 0.1 10*3/uL Normal 0.0-0.2 [facility] Comment on above: Order Comment: CALL [facility] tel. [phone], called hgb to ramila oseguera rn on 1w by scbHematology results called to and read back by ramila june on w, 12/27/201706:44, by BONSA Basophils/100 WBC Auto (Bld) 0.7 % Normal [facility] Comment on above: Order Comment: CALL [facility] tel. [phone], called hgb to ramila oseguera rn on 1w by scbHematology results called to and read back by ramila june on w, 12/27/201706:44, by BONSA Eosinophils Auto #/vol (Bld) 0.0 10*3/uL Normal 0.0-0.7 [facility] Comment on above: Order Comment: CALL [facility] tel. [phone], called hgb to ramila oseguera rn on 1w by scbHematology results called to and read back by ramila june on w, 12/27/201706:44, by BONSA Eosinophils/100 WBC Auto (Bld) 0.4 % Normal [facility] Comment on above: Order Comment: CALL [facility] tel. [phone], called hgb to ramila june rn on 1w by scbHematology results called to and read back by ramila june on 1w, :44, by BONSA Erythrocyte distribution width Auto Ratio (RBC) 19.0 % Critically high 11.5-14.5 [facility] Comment on above: Order Comment: CALL [address] tel. [phone], called hgb to ramila june rn on 1w by scbHematology results called to and read back by ramila june on 1w, :44, by BONSA Hematocrit Auto Volume Fraction (Bld) 19.7 % Critically low 37.0-47.0 [facility] Comment on above: Order Comment: CALL [address] tel. [phone], called hgb to ramila june rn on 1w by scbHematology results called to and read back by ramila june on 1w, :44, by BON Hemoglobin mass conc (Bld) 6.6 g/dL Critically low 12.0-16.0 [facility] Comment on above: Order Comment: CALL [address] tel. [phone], called hgb to ramila june rn on 1w by scbHematology results called to and read back by ramila june on 1w, :44, by BON Result Comment: veri fied by repeat Lymphocytes Auto #/vol (Bld) 0.8 10*3/uL Low 1.0-4.8 [facility] Comment on above: Order Comment: CALL [address] tel. [phone], called hgb to ramila june rn on 1w by scbHematology results called to and read back by ramila june on 1w, :44, by BONSA Lymphocytes/100 WBC Auto (Bld) 9.0 % Normal [facility] Comment on above: Order Comment: CALL [address] tel. [phone], called hgb to ramila june rn on 1w by scbHematology results called to and read back by ramila june on 1w, :44, by BONSA MCH Auto Entitic mass (RBC) 26.7 pg Low 27.0-31.3 [facility] Comment on above: Order Comment: CALL [facility] tel. [phone], called hgb to ramila ana rosa rn on 1w by scbHematology results called to and read back by ramila june on 1w, :44, by BON MCHC Auto mass conc (RBC) 33.3 % Normal 33.0-37.0 [facility] Comment on above: Order Comment: CALL [facility] tel. [phone], called hgb to ramila june rn on 1w by scbHematology results called to and read back by ramila june on 1w, :44, by BONSA MCV Auto Entitic volume (RBC) 80.1 fL Low 82.0-100.0 [facility] Comment on above: Order Comment: CALL [facility] tel. [phone], called hgb to ramila ana rosa rn on 1w by scbHematology results called to and read back by ramial oseguera on 1w, :44, by BONSA Monocytes Auto #/vol (Bld) 0.5 10*3/uL Normal 0.2-0.8 [facility] Comment on above: Order Comment: CALL [facility] tel. [phone], called hgb to ramila june rn on 1w by scbHematology results called to and read back by ramila oseguera on 1w, :44, by BONSA Monocytes/100 WBC Auto (Bld) 5.4 % Normal [facility] Comment on above: Order Comment: CALL [facility] tel. [phone], called hgb to ramila ana rosa rn on 1w by scbHematology results called to and read back by ramila june on 1w, :44, by BONSA Neutrophils Auto #/vol (Bld) 7.1 10*3/uL Critically high 1.4-6.5 [facility] Comment on above: Order Comment: CALL [facility] tel. [phone], called hgb to ramilashawna oseguera rn on 1w by scbHematology results called to and read back by ramila june on 1w, 12/27/201706:44, by BONSA Neutrophils/100 WBC Auto (Bld) 84.5 % Normal [facility] Comment on above: Order Comment: CALL [facility] tel. [phone], called hgb to ramila oseguera rn on 1w by scbHematology results called to and read back by ramila june on 1w, 12/27/201706:44, by BONSA Platelets Auto #/vol (Bld) 195 10*3/uL Normal 130-400 [facility] Comment on above: Order Comment: CALL [facility] tel. [phone], called hgb to ramila ana rosa rn on 1w by scbHematology results called to and read back by ramila oseguera on 1w, 12/27/201706:44, by BONSA RBC Auto #/vol (Bld) 2.46 10*6/uL Low 4.20-5.40 [facility] Comment on above: Order Comment: CALL [facility] tel. [phone], called hgb to ramila ana rosa rn on 1w by scbHematology results called to and read back by ramila oseguera on 1w, 12/27/201706:44, by BONSA WBC Auto #/vol (Bld) 8.4 10*3/uL Normal 4.8-10.8 [facility] Comment on above: Order Comment: CALL [facility] tel. [phone], called hgb to ramila ana rosa rn on 1w by scbHematology results called to and read back by ramila oseguera on 1w, 12/27/201706:44, by RAYSHAWN Culture, Blood 2on 8 Culture, Blood 2 OR DERED BY: LESLIE PENALOZA: Blood COLLECTED: 12/31/17 00:40ANTIBIOTICS AT RADHA.: RECEIVED : 12/31/17 01:26[facility] tel. [phone],Blood culture results called to and read back by Henri Christine, 01/01/2018 13:30, by MICRECultdriss, Blood 2 INTERIM 01/02/18 08:16 Gram stain aerobic bottle Gram negative rods 1 out of 2 blood cultures Further results to follow POSITIVE for Gram negative arminda ID and sensitivity to follow Normal [facility] IR FLUORO GUIDED CVA DEVICE PLACEMENTon [...] sheath was placed over the guidewire. A 4-Israeli 44 cm single lumen PICC was advanced [...] by:FRANCO Santamariaigned by:Gordon Hinton MD01/10/18inal result Normal [facility] IR PICC WO SQ PORT/PUMP > 5 [...] sheath was placed over the guidewire. A 4-Israeli 44 cm single lumen PICC was advanced [...] COMPLICATIONS.Interpreted by:FRANCO Santamariaigned by:Gordon Hinton MD01/10/18inal result [facility] IR ULTRASOUND GUIDANCE JT WOLFF ACCESSon 12-31-2017 IR ULTRASOUND GUIDANCE VASCULAR ACCESS [...] sheath was placed over the guidewire. A 4-Israeli 44 cm single lumen PICC was advanced [...] by:FRANCO Santamariaigned by:Gordon Hinton MD01/10/18Final result Normal [facility] Basic Metabolic Panel Reflex Mgon 12-30-2017 Calcium mass conc 8.4 mg/dL Low 8.6-10.2 [facility] Chloride molar conc 107 mmol/L Normal 98-107 [facility] CO2 molar conc 24 mmol/L Normal 22-29 [facility] Creatinine mass conc 0.73 mg/dL Normal 0.50-0.90 [facility] GFR/1.73 sq M predicted among blacks MDRD vol rate/area (S/P/Bld) mL/min/{1.73_m2} Normal >60 [facility] Comment on above: Result Comment: >60 mL/min/1.73m2 EGFR, calc. for ages 18 and older using theMDRD formula (not corrected for weight), is valid for stablerenal function. GFR/1.73 sq M.predicted MDRD vol rate/area mL/min/{1.73_m2} Normal >60 [facility] Comment on above: Result Comment: >60 mL/min/1.73m2 EGFR, calc. for ages 18 and older using theMDRD formula (not corrected for weight), is valid for stablerenal function. Glucose mass conc 82 mg/dL Normal 74-109 [facility] Potassium reflex Mg 4.8 mEq/L Normal 3.5-5.1 [facility] Sodium molar conc 140 mmol/L Normal 132-144 [facility] Urea nitrogen mass conc 8 mg/dL Normal 6-20 [facility] Anion gap 3 molar conc 9 mmol/L Normal 7-13 [facility] Body Fluid Cell Counton 12-16 Atypical Lymphs 3 % Normal [facility] Eosinophils/100 WBC Auto (Bld) 1 % Normal [facility] Lymphocytes/100 WBC Auto (Bld) 8 % Normal [facility] Mesothelials 50 % Normal [facility] Monocytes/100 WBC Auto (Bld) 20 % Normal [facility] Neutrophils/100 WBC Auto (Bld) 18 % Normal [facility] CBC With Platelet and Differ entialon 12-30-2017 Basophils Auto #/vol (Bld) 0.0 10*3/uL Normal 0.0-0.2 [facility] Comment on above: Order Comment: [facility] tel. [phone],h and h results called to and read back by es perdomo on 4w / scb,12/30/2017 09:51, by BONSA Basophils/100 WBC Auto (Bld) 1.0 % Normal [facility] Comment on above: Order Comment: [facility] tel. [phone],h and h results called to and read back by es perdomo on 4w / scb,12/30/2017 09:51, by BONSA Eosinophils Auto #/vol (Bld) 0.1 10*3/uL Normal 0.0-0.7 [facility] Comment on above: Order Comment: [facility] tel. [phone],h and h results called to and read back by es perdomo on 4w / scb,12/30/2017 09:51, by BONSA Eosinophils/100 WBC Auto (Bld) 1.8 % Normal [facility] Comment on above: Order Comment: [facility] tel. [phone],h and h results called to and read back by es perdomo on 4w / scb,12/30/2017 09:51, by BONSA Erythrocyte distribution width Auto Ratio (RBC) 18.8 % Critically high 11.5-14.5 [facility] Comment on above: Order Comment: [facility] tel. [phone],h and h results called to and read back by es perdomo on 4w / scb,12/30/2017 09:51, by BONSA Hematocrit Auto Volume Fraction (Bld) 20.8 % Critically low 37.0-47.0 [facility] Comment on above: Order Comment: [facility] tel. [phone],h and h results called to and read back by es perdomo on 4w / scb,12/30/2017 09:51, by BONSA Hemoglobin mass conc (Bld) 7.0 g/dL Critically low 12.0-16.0 [facility] Comment on above: Order Comment: [facility] tel. [phone],h and h results called to and read back by es perdomo on 4w / scb,12/30/2017 09:51, by BONSA Lymphocytes Auto #/vol (Bld) 1.0 10*3/uL Normal 1.0-4.8 [facility] Comment on above: Order Comment: [facility] tel. [phone],h and h results called to and read back by es perdomo on 4w / scb,12/30/2017 09:51, by BONSA Lymphocytes/100 WBC Auto (Bld) 20.2 % Normal [facility] Comment on above: Order Comment: [facility] tel. [phone],h and h results called to and read back by es perdomo on 4w / scb,12/30/2017 09:51, by BONSA MCH Auto Entitic mass (RBC) 26.8 pg Low 27.0-31.3 [facility] Comment on above: Order Comment: CALL [facility] tel. [phone],h and h results called to and read back by es perdomo on 4w / scb,12/30/2017 09:51, by BONSA MCHC Auto mass conc (RBC) 33.9 % Normal 33.0-37.0 [facility] Comment on above: Order Comment: [facility] tel. [phone],h and h results called to and read back by es perdomo on 4w / scb,12/30/2017 09:51, by BONSA MCV Auto Entitic volume (RBC) 79.1 fL Low 82.0-100.0 [facility] Comment on above: Order Comment: [facility] tel. [phone],h and h results called to and read back by es perdomo on 4w / scb,12/30/2017 09:51, by BONSA Monocytes Auto #/vol (Bld) 0.2 10*3/uL Normal 0.2-0.8 [facility] Comment on above: Order Comment: [facility] tel. [phone],h and h results called to and read back by es perdomo on 4w / scb,12/30/2017 09:51, by BONSA Monocytes/100 WBC Auto (Bld) 4.8 % Normal [facility] Comment on above: Order Comment: [facility] tel. [phone],h and h results called to and read back by es perdomo on 4w / scb,12/30/2017 09:51, by BONSA Neutrophils Auto #/vol (Bld) 3.7 10*3/uL Normal 1.4-6.5 [facility] Comment on above: Order Comment: [facility] tel. [phone],h and h results called to and read back by es perdomo on 4w / scb,12/30/2017 09:51, by BONSA Neutrophils/100 WBC Auto (Bld) 72.2 % Normal [facility] Comment on above: Order Comment: [facility] tel. [phone],h and h results called to and read back by es perdomo on 4w / scb,12/30/2017 09:51, by BONSA Platelets Auto #/vol (Bld) 231 10*3/uL Normal 130-400 [facility] Comment on above: Order Comment: [facility] tel. [phone],h and h results called to and read back by es perdomo on 4w / scb,12/30/2017 09:51, by BONSA RBC Auto #/vol (Bld) 2.62 10*6/uL Low 4.20-5.40 [facility] Comment on above: Order Comment: [facility] tel. [phone],h and h results called to and read back by es perdomo on 4w / scb,12/30/2017 09:51, by BONSA WBC Auto #/vol (Bld) 5.1 10*3/uL Normal 4.8-10.8 [facility] Comment on above: Order Comment: [facility] tel. [phone],h and h results called to and read [...] by:FRANCO Mcmanusigned by:Huan Funes MD12/30/17inal result Normal [facility] [place] Miscellaneous test 1on 12-29-2017 Miscellaneous Test 1 SEE NOTE Normal [facility] Comment on above: Order Comment: Colle ction has been rescheduled by VIVIEN at 12/26/2017 14:59. Reason:patient refusing until she gets pain meds Result Comment: Test name Result Flag Units RefIntvl HIV-1,2 Combo Antigen/Antibody Negative NegativeThe specimen was non-reactive for HIV-1 and HIV-2 antibodies, and [id number]. Based on this non-reactive screen result, further reflexivetestingwas not indicated and was, therefore, not performedINTERPRETIVE INFORMATION: HIV-1,2 Combo Ag/Ab EIA w/ReflexThis assay should not be used for blood donor screening, associatedre-entryprotocols, or for screening Human Cell, Tissues and Cellular andTissue-BasedProducts (HCT/P).Performed by [facility],[address], [facility] [place] [address] pao[employer], Artur Agustin MD - Lab. Director Protein mass conc 7576505 g/dL [facility] Comment on above: Order Comment: Terri gonzales has been rescheduled by VIVIEN at 12/26/2017 14:59. Reason:patient refusing until she gets pain meds Bacterial susceptibility fox el by Elvia 12-29-2017 Bacterial susceptibility panel by Minimum inhibitory concentration (ISRA) ORDERED BY: YOLANDA POWELL: Bronchial Washing Right Upper Lobe COLLECTED: 12/29/17 15:09ANTIBIOTICS AT RADHA.: RECEIVED : 12/29/17 15:37 [facility]. [phone],MRSA results called to and read back by [...] Vancomycin <=0.5 S S=SUSCEPTIBLE I=INTERMEDIATE R=RESISTANT Normal [facility] Bacterial susceptibility panel by Minimum inhibitory concentration (ISRA) ORDERED BY: YOLANDA POWELL: Bronchial Washing Body Fluid COLLECTED: 12/29/17 14:43ANTIBIOTICS AT RADHA.: RECEIVED : 12/29/17 15:42[facility] tel. [phone],MRSAresults called to and read back by Nanci, 01/01/2018 12:22, by ROGRUKHSANAGram Stain Direct FINAL 12/30/17 10:59 Few WBC's [...] Trimethoprim/Sulfamethoxaz ole <=20 S S=SUSCEPTIBLE I=INTERMEDIATE R=RESISTANT [facility] Body Fluid Cell Counton 12-16 Appearance Nom (U) Hazy [facility] Clot Check see below [facility] Comment on above: Result Comment: No C lots Seen Color Nom (U) Colorless Normal [facility] Fluid Source Pleural Normal [facility] Total Nucleated Cells 341 /cumm [facility] Total Red Blood Cells 2888 /[facility] Total Cells Counted for Diff 100 [facility] CBC With Platelet No Differe ntialon 12-29-2017 Erythrocyte distribution width Auto Ratio (RBC) 18.5 % Critically high 11.5-14.5 [facility] Comment on above: Order Comment: Colle ction has been rescheduled by VIVIEN at 12/26/2017 14:59. Reason:patient refusing until she gets pain meds Hematocrit Auto Volume Fraction (Bld) 18.5 % Critically low 37.0-47.0 [facility] Comment on above: Order Comment: Terri gonzales has been rescheduled by SAUDE at 12/26/2017 14:59. Reason:patient refusing until she gets pain meds Hemoglobin mass conc (Bld) 6.2 g/dL Critically low 12.0-16.0 [facility] Comment on above: Order Comment: Terri gonzales has been rescheduled by SAUDE at 12/26/2017 14:59. Reason:patient refusing until she gets pain meds MCH Auto Entitic mass (RBC) 26.6 pg Low 27.0-31.3 [facility] Comment on above: Order Comment: Terri gonzales has been rescheduled by SAUDE at 12/26/2017 14:59. Reason:patient refusing until she gets pain meds MCHC Auto mass conc (RBC) 33.6 % Normal 33.0-37.0 [facility] Comment on above: Order Comment: Terri gonzales has been rescheduled by SAUDE at 12/26/2017 14:59. Reason:patient refusing until she gets pain meds MCV Auto Entitic volume (RBC) 79.0 fL Low 82.0-100.0 [facility] Comment on above: Order Comment: Terri gonzales has been rescheduled by SAUDE at 12/26/2017 14:59. Reason:patient refusing until she gets pain meds Platelets Auto #/vol (Bld) 173 10*3/uL Normal 130-400 [facility] Comment on above: Order Comment: Terri gonzales has been rescheduled by SAUDE at 12/26/2017 14:59. Reason:patient refusing until she gets pain meds RBC Auto #/vol (Bld) 2.34 10*6/uL Low 4.20-5.40 [facility] Comment on above: Order Comment: Terri gonzales has been rescheduled by SAUDE at 12/26/2017 14:59. Reason:patient refusing until she gets pain meds WBC Auto #/vol (Bld) 3.5 10*3/uL Low 4.8-10.8 [facility] Comment on above: Order Comment: Terri gonzales has been rescheduled by SAUDE at 12/26/2017 14:59. Reason:patient refusing until she gets pain meds CONSULTATIONon 12-29-2017 [address] [place] [address] CONSULTATIONPATIENT NAME: ALESHA KENNEY : 1985MED REC NO: [id number] ROOM:ACCOUNT NO: [id number] ADMIT DATE: 12/25/2017PROVIDER: Ayana [place]bone [facility] [place]: 12/[place]/2017Consultation from Dr. Dominga Powell.REASON FOR [...] this consult.AYANA CARBONE, MDD: 12/29/2017 18:06:42 [id number]#: [id number] Doc#: [id number]: MD Dominga Rai MD [facility] Culture, Respiratoryon 12-29 Culture, Respiratory ORDERED BY: YOLANDA POWELL: Bronchial Washing Left Lower Lobe COLLECTED: 12/29/17 15:11ANTIBIOTICS AT RADHA.: RECEIVED : 12/29/17 15:41[facility] tel. [phone],MRSA results called to and read back by Nanci, 01/01/2018 12:23, by KEVGram Stain Direct FINAL 12/30/17 10:54 Moderate WBC's, No organisms seenCulture, Respiratory FINAL 01/01/18 12:24 Light growth Staph aureus MRSA CONTACT PRECAUTIONS INDICATED PBP2= POSITIVE Previous value was 01 Staph aureus MSSA, verified by KEV at 13:14 on 12/31/17 Normal [facility] Culture, Respiratory ORDERED BY: YOLANDA POWELL: [...] Gram negative arminda ID to follow Normal [facility] Culture, Respiratory ORDERED BY: YOLANDA POWELL: Bronchial Washing Body Fluid COLLECTED: 12/29/17 14:43ANTIBIOTICS AT RADHA.: RECEIVED : 12/29/17 15:42Gram Stain Direct FINAL 12/30/17 10:59 Few WBC's Few epithelial cells Few Mixed Respiratory FloraCulture, Respiratory INTERIM 12/31/17 13:15 Light growth Gram negative arminda ID and sensitivity to follow Rare growth Serratia marcescens Refer to previous sensitivity Heavy growth Staph aureus MSSA Normal [facility] Cytology Medical Specimenon 12-29-2017 Cytology Medical Specimen Invalid Interpretation Code [facility] Comment on above: Result Comment: [place] [id number] [phone] CYTOLOGY REPORTPatient Name: ALESHA KENNEY Accession No: [id number] Age Sex: 1985 32 Y/ F Location: [id number] No: [id number] Collected: 12/29/2017[facility] Rec No: [id number] Received: 12/30/2017Attend Phys: NEENA DUPONT Completed 01/03/2018Perform [...] ml fixed1 monolayer1 cell blockhx Not givenCPT: 78113 X2 08776 X2 Screened by: Irasema CAZARES M.D. 01/03/2018 [...] by:FRANCO Mittaligned by:Keith Durham MD12/29/17inal result Normal [facility] HCV by Quant NAATon 12-30-19 18 HCV Qnt by NAAT IU/mL Not Detected Normal [facility] Comment on above: Order Comment: Terri ction has been rescheduled by SATORI at 12/26/2017 14:59. Reason:patient refusing until she gets pain meds HCV Qnt by NAAT log IU/mL Not Detected Normal [facility] Comment on above: Order Comment: Terri ction has been rescheduled by SATORI at 12/26/2017 14:59. Reason:patient refusing until she gets pain meds Prothrombin Timeon 8 INR Coag RelTime (PPP) 1.1 {INR} Normal [facility] Comment on above: Result Comment: Dimitrios [...] Coag time (PPP) 11.4 s Normal 9.6-12.3 [facility] Quantiferon-TB Gold Plus, 1- Tubeon 12-29-2017 Quantiferon Mitogen minus NIL 0.52 IU/mL Normal [facility] Comment on above: Order Comment: Terri gonzales has been rescheduled by SAUDE at 12/26/2017 14:59. Reason:patient refusing until she gets pain meds Quantiferon NIL 0.05 IU/mL Normal [facility] Comment on above: Order Comment: Terri gonzales has been rescheduled by SAUDE at 12/26/2017 14:59. Reason:patient refusing until she gets pain meds Result Comment: Perf ormed by [facility],[address] [place] [id number] cao.[employer], Artur Agustin MD - Lab. Director Quantiferon PlusTB1 minus NIL 0.00 IU/mL Normal 0.00-0.34 [facility] Comment on above: Order Comment: Terri gonzales has been rescheduled by SAUDE at 12/26/2017 14:59. Reason:patient refusing until she gets pain meds Quantiferon PlusTB2 minus NIL 0.00 IU/mL Normal 0.00-0.34 [facility] Comment on above: Order Comment: Terri gonzales has been rescheduled by SAUDE at 12/26/2017 14:59. Reason:patient refusing until she gets pain meds Quantiferon TB Gold Plus Negative Normal Negative [facility] Comment on above: Order Comment: Terri [...] CD4+ lymphocyte reactivity, specifically stimulated by the ES2eydfutcm. The TB2-NIL tube detects both CD4+ and CD8+ lymphocytereactivity,stimulated by TB2 antigens. An overall Negative result does notcompletelyrule out TB infection.A false-positive result in the absence of other clinical evidence of TBinfection is not uncommon. Refer to: Updated Guidelines for UsingInterferonGamma Release Assays to Detect Mycobacterium tuberculosis Infection ---[place], 2010(http://www.cdc.gov/mmwr/preview/mmwrhtml/fu6227c4.htm),for more information concerning test performance in low-prevalencepopulations and use in occupational screening. CBC With Platelet No Differe ntialon 12-28-2017 Erythrocyte distribution width Auto Ratio (RBC) 18.9 % Critically high 11.5-14.5 [facility] Comment on above: Order Comment: Terri gonzales has been rescheduled by SAUDE at 12/26/2017 14:59. Reason:patient refusing until she gets pain meds Hematocrit Auto Volume Fraction (Bld) 21.0 % Critically low 37.0-47.0 [facility] Comment on above: Order Comment: Terri gonzales has been rescheduled by SAUDE at 12/26/2017 14:59. Reason:patient refusing until she gets pain meds Hemoglobin mass conc (Bld) 6.8 g/dL Critically low 12.0-16.0 [facility] Comment on above: Order Comment: Terri gonzales has been rescheduled by SAUDE at 12/26/2017 14:59. Reason:patient refusing until she gets pain meds Result Comment: call ed h and h to lavinia chacon on 1w MCH Auto Entitic mass (RBC) 26.0 pg Low 27.0-31.3 [facility] Comment on above: Order Comment: Terri gonzales has been rescheduled by SAUDE at 12/26/2017 14:59. Reason:patient refusing until she gets pain meds MCHC Auto mass conc (RBC) 32.6 % Low 33.0-37.0 [facility] Comment on above: Order Comment: Terri gonzales has been rescheduled by SAUDE at 12/26/2017 14:59. Reason:patient refusing until she gets pain meds MCV Auto Entitic volume (RBC) 79.9 fL Low 82.0-100.0 [facility] Comment on above: Order Comment: Terri gonzales has been rescheduled by SAUDE at 12/26/2017 14:59. Reason:patient refusing until she gets pain meds Platelets Auto #/vol (Bld) 147 10*3/uL Normal 130-400 [facility] Comment on above: Order Comment: Terri gonzales has been rescheduled by SAUDE at 12/26/2017 14:59. Reason:patient refusing until she gets pain meds RBC Auto #/vol (Bld) 2.63 10*6/uL Low 4.20-5.40 [facility] Comment on above: Order Comment: Terri gonzales has been rescheduled by SAUDE at 12/26/2017 14:59. Reason:patient refusing until she gets pain meds WBC Auto #/vol (Bld) 4.2 10*3/uL Low 4.8-10.8 [facility] Comment on above: Order Comment: Terri gonzales has been rescheduled by SAUDE at 12/26/2017 14:59. Reason:patient refusing until she gets pain meds Hepatitis B Core Abs, Totalo n 12-28-2017 Hepatitis B Core Abs, Total Positive Abnormal Negative [facility] Comment on above: Order Comment: Terri [...] Tissues and Cellular andTissue-Based Products (HCT/P).Performed by [facility],[address] [place] [address] ecg.[employer], Artur Agustin MD - Lab. Director Transferrinon 12-28-2017 Transferrin mass conc 135 mg/dL Low 200-400 [facility] Comment on above: Order Comment: Terri gonzales has been rescheduled by SAUDE at 12/26/2017 14:59. Reason:patient refusing until she gets pain meds Result Comment: Perf ormed by [facility],[address] [place] [place] [address] pqc.[employer], Artur Agustin MD - Lab. Director XR [...] pleural effusion.Interpreted by:Chandrakant Montoya, DOSigned by:Chandrakant Montoya, DO12/28/17inal result Normal [facility] CBC With Platelet and Differ entialon 12-27-2017 Anisocytosis Auto Ql (Bld) 2+ Normal [facility] Comment on above: Order Comment: CALL [facility] tel. [phone], called hgb to ramila oseguera rn on 1w by scbHematology results called to and read back by ramila june on 1w, :44, by BONSA Hypochromia 1+ Normal [facility] Comment on above: Order Comment: CALL [address] tel. [phone], called hgb to ramila oseguera rn on 1w by scbHematology results called to and read back by ramila june on 1w, :44, by BONSA Lymphocytes Auto #/vol (Bld) 0.8 10*3/uL Low 1.0-4.8 [facility] Comment on above: Order Comment: CALL [address] tel. [phone], called hgb to ramila oseguera rn on 1w by scbHematology results called to and read back by ramila june on 1w, :44, by BONSA Lymphocytes/100 WBC Auto (Bld) 22.0 % Normal [facility] Comment on above: Order Comment: CALL [address] tel. [phone], called hgb to ramila oseguera rn on 1w by scbHematology results called to and read back by ramila june on 1w, :44, by BONSA Microcytic 2+ Normal [facility] Comment on above: Order Comment: CALL [address] tel. [phone], called hgb to ramila oseguera rn on 1w by scbHematology results called to and read back by ramila june on 1w, :44, by BONSA Monocytes Auto #/vol (Bld) 0.1 10*3/uL Low 0.2-0.8 [facility] Comment on above: Order Comment: CALL [facility] tel. [phone], called hgb to ramila oseguera rn on 1w by scbHematology results called to and read back by ramila june on 1w, :44, by BONSA Monocytes/100 WBC Auto (Bld) 3.8 % Normal [facility] Comment on above: Order Comment: CALL [facility] tel. [phone], called hgb to ramila oseguera rn on 1w by scbHematology results called to and read back by ramila june on 1w, :44, by BONSA Neutrophils Auto #/vol (Bld) 2.7 10*3/uL Normal 1.4-6.5 [facility] Comment on above: Order Comment: CALL [address] tel. [phone], called hgb to ramila oseguera rn on 1w by scbHematology results called to and read back by ramila june on 1w, :44, by BONSA Neutrophils/100 WBC Auto (Bld) 74.0 % Normal [facility] Comment on above: Order Comment: CALL [address] tel. [phone], called hgb to ramila oseguera rn on 1w by scbHematology results called to and read back by ramila june on 1w, :44, by BONSA Platelet Slide Review Decreased Normal [facility] Comment on above: Order Comment: CALL [address] tel. [phone], called hgb to ramila oseguera rn on 1w by scbHematology results called to and read back by ramila june on 1w, :44, by RAYSHAWN Poikilocytosis 1+ Normal [facility] Comment on above: Order Comment: CALL [address] tel. [phone], called hgb to ramila oseguera rn on 1w by scbHematology results called to and read back by ramila june on 1w, :44, by BONSA Basophils Auto #/vol (Bld) 0.0 10*3/uL Normal 0.0-0.2 [facility] Comment on above: Order Comment: CALL [facility] tel. [phone], called hgb to ramila oseguera rn on 1w by scbHematology results called to and read back by ramila june on 1w, :44, by BONSA Basophils/100 WBC Auto (Bld) 1.0 % Normal [facility] Comment on above: Order Comment: CALL [facility] tel. [phone], called hgb to ramila oseguera rn on 1w by scbHematology results called to and read back by ramila june on 1w, :44, by BONSA Eosinophils Auto #/vol (Bld) 0.0 10*3/uL Normal 0.0-0.7 [facility] Comment on above: Order Comment: CALL [facility] tel. [phone], called hgb to ramila june rn on 1w by scbHematology results called to and read back by ramila june on 1w, :44, by BONSA Eosinophils/100 WBC Auto (Bld) 1.1 % Normal [facility] Comment on above: Order Comment: CALL [facility] tel. [phone], called hgb to ramilashawna oseguera rn on 1w by scbHematology results called to and read back by ramila oseguera on 1w, :44, by BONSA Erythrocyte distribution width Auto Ratio (RBC) 18.8 % Critically high 11.5-14.5 [facility] Comment on above: Order Comment: CALL [address] tel. [phone], called hgb to ramila ana rosa rn on 1w by scbHematology results called to and read back by ramila oseguera on 1w, :44, by BONSA Hematocrit Auto Volume Fraction (Bld) 21.1 % Low 37.0-47.0 [facility] Comment on above: Order Comment: CALL [address] tel. [phone], called hgb to ramila oseguera rn on 1w by scbHematology results called to and read back by ramila oseguera on 1w, :44, by BONSA Hemoglobin mass conc (Bld) 6.9 g/dL Critically low 12.0-16.0 [facility] Comment on above: Order Comment: CALL [facility] tel. [phone], called hgb to ramila ana rosa rn on 1w by scbHematology results called to and read back by ramila oseguera on 1w, :44, by BONSA Result Comment: call ed hgb to ramila oseguera on 1w / scb MCH Auto Entitic mass (RBC) 26.5 pg Low 27.0-31.3 [facility] Comment on above: Order Comment: CALL [facility] tel. [phone], called hgb to ramila oseguera rn on 1w by scbHematology results called to and read back by ramila june on 1w, :44, by BONSA MCHC Auto mass conc (RBC) 32.8 % Low 33.0-37.0 [facility] Comment on above: Order Comment: CALL [facility] tel. [phone], called hgb to ramila ana rosa rn on 1w by scbHematology results called to and read back by ramila june on 1w, :44, by BONSA MCV Auto Entitic volume (RBC) 80.9 fL Low 82.0-100.0 [facility] Comment on above: Order Comment: CALL [address] tel. [phone], called hgb to ramila ana rosa rn on 1w by scbHematology results called to and read back by ramila oseguera on 1w, :44, by BONSA Platelets Auto #/vol (Bld) 122 10*3/uL Low 130-400 [facility] Comment on above: Order Comment: CALL [facility] tel. [phone], called hgb to ramila ana rosa rn on 1w by scbHematology results called to and read back by ramila oseguera on 1w, :44, by BONSA RBC Auto #/vol (Bld) 2.61 10*6/uL Low 4.20-5.40 [facility] Comment on above: Order Comment: CALL [facility] tel. [phone], called hgb to ramila ana rosa rn on 1w by scbHematology results called to and read back by ramila june on 1w, :44, by BONSA WBC Auto #/vol (Bld) 3.6 10*3/uL Low 4.8-10.8 [facility] Comment on above: Order Comment: CALL [facility] tel. [phone], called hgb to ramila oseguera rn on 1w by scbHematology results called to and read back by ramila oseguera on 1w, 12/27/201706:44, by RAYSHAWN [facility] Metabolic Pane l reflex Mgon 12-27-2017 Albumin mass conc 2.4 g/dL Low 3.9-4.9 [facility] ALP enzyme act/vol 40 U/L Normal 40-130 [facility] ALT enzyme act/vol U/L Normal 0-33 [facility] Anion gap 3 molar conc 11 mmol/L Normal 7-13 [facility] AST enzyme act/vol 6 U/L Normal 0-35 [facility] Bilirubin mass conc mg/dL Normal 0.0-1.2 [facility] Calcium mass conc 7.7 mg/dL Low 8.6-10.2 [facility] Chloride molar conc 110 mmol/L Critically high 98-107 [facility] CO2 molar conc 20 mmol/L Low 22-29 [facility] Creatinine mass conc 0.64 mg/dL Normal 0.50-0.90 [facility] GFR/1.73 sq M predicted among blacks MDRD vol rate/area (S/P/Bld) mL/min/{1.73_m2} Normal >60 [facility] Comment on above: Result Comment: >60 mL/min/1.73m2 EGFR, calc. for ages 18 and older using theMDRD formula (not corrected for weight), is valid for stablerenal function. GFR/1.73 sq M.predicted MDRD vol rate/area mL/min/{1.73_m2} Normal >60 [facility] Comment on above: Result Comment: >60 mL/min/1.73m2 EGFR, calc. for ages 18 and older using theMDRD formula (not corrected for weight), is valid for stablerenal function. Globulin Calculated mass conc (S) 3.9 g/dL Critically high 2.3-3.5 [facility] Glucose mass conc 115 mg/dL Critically high 74-109 [facility] Potassium reflex Mg 3.8 mEq/L Normal 3.5-5.1 [facility] Protein mass conc 6.3 g/dL Low 6.4-8.1 [facility] Sodium molar conc 141 mmol/L Normal 132-144 [facility] Urea nitrogen mass conc 10 mg/dL Normal 6-20 [facility] Ferritinon 12-27-2017 Ferritin [Mass/volume] in Serum or Plasma 152.3 ng/mL Critically high 13.0-150.0 [facility] Iron Profileon 12-27-2017 % Saturation 8 % Low 11-46 [facility] Iron Binding Capacity 132 ug/dL Low 178-450 [facility] Iron mass conc 11 ug/dL Low 37-145 [facility] RBC LRon 12-27-2017 RBC Auto #/vol (Bld) PATIENT: ISABEL Jackson LOC: LC4W,[id number]# : [id number] : 1985 SEX: FORDERED BY: KIAH CHAUDHARY ORDERED : 12/27/2017 07:06 COLLECTED: 12/27/2017 07:20ORDER : [id number] RECEIVED : 12/27/2017 07:27 -----TEST NAME RESULT UNITS RANGES ABN FL STRBC LR [id number] RBC LR W0 F = Normal [facility] Retic Automatedon 12-27-2017 Hematocrit Auto Volume Fraction (Bld) 21.1 % Low 37.0-47.0 [facility] Retic Abs 0.066 m/cumm Normal 0.022-0.11 [facility] Reticulocyte Count Automated 2.5 % Critically high 0.6-2.2 [facility] Type and Screen Capture 3 sc rn cellon 12-27-2017 Type and Screen Capture 3 scrn cell PATIENT: ISABEL Jackson LOC: [id number]# : [id number] : 1985 SEX: FORDERED BY: KIAH CHAUDHARY ORDERED : 12/27/2017 07:06 COLLECTED: 12/27/2017 07:20ORDER : [id number] RECEIVED : 12/27/2017 07:27 -----TEST NAME RESULT UNITS RANGES ABN FL STABORH Capture A POS FAntibody 3 Cell Scrn David Parada @12/27/17 10:58 by BEBETO: ANTIBODY SCREEN PERFORMED ON BACKUP CAPTURE. ------- Normal [facility] Bacterial susceptibility fox el by Elvia [...] ole <=20 S S=SUSCEPTIBLE I=INTERMEDIATE R=RESISTANT Normal [facility] CT CHEST W CONTRASTon 2017 CT [...] tissue density, adenopathy.There is trace pericardial effusion.The [id number] the gallbladder surgically absent.IMPRESSION: FINDINGS DESCRIBED ABOVE. [...] by:FRANCO Santamariaigned by:Gordon Hinton MD12/26/17inal result Normal [facility] Culture, Blood 2on 8 Culture, Blood 2 OR DERED BY: GALLITO POLANCO: Blood COLLECTED: 12/26/17 15:49ANTIBIOTICS AT RADHA.: RECEIVED : 12/26/17 15:56Culture, Blood 2 FINAL 12/31/17 16:15 No growth after 5 days of incubation. Normal [facility] Culture, Respiratoryon 12-26 Culture, Respiratory ORDERED BY: GALLITO POLANCO: Sputum Expectorated COLLECTED: 12/26/17 14:45ANTIBIOTICS AT RADHA.: RECEIVED : 12/29/17 12:46Gram Stain Direct FINAL 12/29/17 16:19 Moderate WBC's Few epithelial cells Few Yeast with pseudohyphaeCulture, Respiratory INTERIM 12/30/17 11:53 Light growth Gram negative arminda ID and sensitivity to follow Moderate growth Yeast No further workup Normal [facility] Hepatitis C Antibodyon 12-26 Hepatitis C Antibody Interp REACTIVE Abnormal [facility] Comment on above: Order Comment: Colle edision has been rescheduled by SAUDE at 12/26/2017 14:59. Reason:patient refusing until she gets pain meds Influenza A and Bon 12-27-19 18 Influenza A Antigen Negative Normal Negative [facility] Influenza B Antigen Negative Normal Negative [facility] Bacterial susceptibility fox el by Elvia 12-25-2017 Bacterial susceptibility panel by Minimum inhibitory concentration (ISRA) ORDERED BY: FLOYD SNIDER: Blood Blood COLLECTED: 12/25/17 21:04ANTIBIOTICS AT RADHA.: RECEIVED : 12/25/17 21:04CALL [facility] tel. [phone],Blood Culture results called to and read back by Beena MASON, 12/26/2017 19:32, by Jodie, Blood FINAL 12/28/17 07:32 1 out of 2 blood cultures POSITIVE for Serratia marcescens S. marces ANTIBIOTICS ISRA Interp A moxicillin/Clavulanate >=32 R Cefepime <=1 S Ceftriaxone <=1 S Ciprofloxacin <=0.25 S Gentamicin <=1 S Trimethoprim/Sulfamethoxaz ole <=20 S S=SUSCEPTIBLE I=INTERMEDIATE R=RESISTANT Normal [facility] CBC With Platelet and Differ entialon 12-25-2017 Basophils Auto #/vol (Bld) 0.0 10*3/uL Normal 0.0-0.2 [facility] Basophils/100 WBC Auto (Bld) 0.5 % Normal [facility] Eosinophils Auto #/vol (Bld) 0.0 10*3/uL Normal 0.0-0.7 [facility] Eosinophils/100 WBC Auto (Bld) 0.2 % Normal [facility] Erythrocyte distribution width Auto Ratio (RBC) 18.9 % Critically high 11.5-14.5 [facility] Hematocrit Auto Volume Fraction (Bld) 23.6 % Low 37.0-47.0 [facility] Hemoglobin mass conc (Bld) 8.0 g/dL Low 12.0-16.0 [facility] Hypochromia PRESENT Normal [facility] Lymphocytes Auto #/vol (Bld) 1.3 10*3/uL Normal 1.0-4.8 [facility] Lymphocytes/100 WBC Auto (Bld) 16.6 % Normal [facility] MCH Auto Entitic mass (RBC) 26.5 pg Low 27.0-31.3 [facility] MCHC Auto mass conc (RBC) 33.9 % Normal 33.0-37.0 [facility] MCV Auto Entitic volume (RBC) 78.1 fL Low 82.0-100.0 [facility] Monocytes Auto #/vol (Bld) 0.5 10*3/uL Normal 0.2-0.8 [facility] Monocytes/100 WBC Auto (Bld) 6.3 % Normal [facility] Neutrophils Auto #/vol (Bld) 6.2 10*3/uL Normal 1.4-6.5 [facility] Neutrophils/100 WBC Auto (Bld) 76.4 % Normal [facility] Platelets Auto #/vol (Bld) 178 10*3/uL Normal 130-400 [facility] RBC Auto #/vol (Bld) 3.02 10*6/uL Low 4.20-5.40 [facility] WBC Auto #/vol (Bld) 8.1 10*3/uL Normal 4.8-10.8 [facility] Comprehensive Metabolic Pane thanh 12-25-2017 Albumin mass conc 3.2 g/dL Low 3.9-4.9 [facility] ALP enzyme act/vol 39 U/L Low 40-130 [facility] ALT enzyme act/vol U/L Normal 0-33 [facility] Anion gap 3 molar conc 14 mmol/L Critically high 7-13 [facility] AST enzyme act/vol 10 U/L Normal 0-35 [facility] Bilirubin mass conc 0.6 mg/dL Normal 0.0-1.2 [facility] Calcium mass conc 8.7 mg/dL Normal 8.6-10.2 [facility] Chloride molar conc 94 mmol/L Low 98-107 [facility] CO2 molar conc 24 mmol/L Normal 22-29 [facility] Creatinine mass conc 0.68 mg/dL Normal 0.50-0.90 [facility] GFR/1.73 sq M predicted among blacks MDRD vol rate/area (S/P/Bld) mL/min/{1.73_m2} Normal >60 [facility] Comment on above: Result Comment: >60 mL/min/1.73m2 EGFR, calc. for ages 18 and older using theMDRD formula (not corrected for weight), is valid for stablerenal function. GFR/1.73 sq M.predicted MDRD vol rate/area mL/min/{1.73_m2} Normal >60 [facility] Comment on above: Result Comment: >60 mL/min/1.73m2 EGFR, calc. for ages 18 and older using theMDRD formula (not corrected for weight), is valid for stablerenal function. Globulin Calculated mass conc (S) 4.4 g/dL Critically high 2.3-3.5 [facility] Glucose mass conc 120 mg/dL Critically high 74-109 [facility] Potassium molar conc 4.2 mmol/L Normal 3.5-5.1 [facility] Protein mass conc 7.6 g/dL Normal 6.4-8.1 [facility] Sodium molar conc 132 mmol/L Normal 132-144 [facility] Urea nitrogen mass conc 7 mg/dL Normal 6-20 [facility] Creatine Kinaseon 12-25-2017 CK enzyme act/vol 19 U/L Normal 0-170 [facility] Culture, Blood 2on 8 Culture, Blood 2 OR DERED BY: FLOYD SNIDER: Blood COLLECTED: 12/25/17 21:04ANTIBIOTICS AT RADHA.: RECEIVED : 12/25/17 21:04Culture, Blood 2 FINAL 12/30/17 22:15 No growth after 5 days of incubation. Normal [facility] Lactic Acidon 12-25-2017 Lactate molar conc 2.1 mmol/L Normal 0.5-2.2 [facility] Prothrombin Timeon 8 INR Coag RelTime (PPP) 1.2 {INR} Normal [facility] Comment on above: Result Comment: Dimitrios [...] Coag time (PPP) 11.8 s Normal 9.6-12.3 [facility] Troponinon 12-25-2017 Troponin I.cardiac mass conc ng/mL Normal 0.000-0.01 [facility] Comment on above: Result Comment: Meth odology by Troponin T. UR Drug Screen Rapidon 12-25 Drug Screen Comment see below Normal [facility] Comment on above: Result Comment: This method is a screening test to detect only these drugclasses as part of a medical workup. Confirmatory testingby another method should be ordered if clinically indicated. UR Amphetamines Rapid Screen Negative Normal Negative < [facility] Comment on above: Result Comment: Effe ctive: 08/30/17Methodology and/or Reference Range-Cutoff has changed. UR Barbiturates Rapid Screen Negative Normal Negative < [facility] Comment on above: Result Comment: Effe ctive: 08/30/17Methodology and/or Reference Range-Cutoff has changed. UR Benzo Rapid Screen Negative Normal Negative < [facility] Comment on above: Result Comment: Effe ctive: 08/30/17Methodology and/or Reference Range-Cutoff has changed. UR Cannabinoids Rapid Screen Negative Normal Negative < [facility] UR Cocaine Rapid Screen Negative Normal Negative < [facility] Comment on above: Result Comment: Effe ctive: 08/30/17Methodology and/or Reference Range-Cutoff has changed. UR Opiates Rapid Screen Negative Normal Negative < [facility] Comment on above: Result Comment: Effe ctive: 08/30/17Methodology and/or Reference Range-Cutoff has changed. UR PCP Rapid Screen Negative Normal Negative < [facility] UR Tricyclics Rapid Screen - Rapid Negative Normal Negative < [facility] Comment on above: Result Comment: Effe ctive: 08/30/17Methodology and/or Reference Range-Cutoff has changed. UR HCG Qualitativeon 018 HCG.beta subunit ( test) Ql (U) Negative Normal Detects [facility] Urinalysis, reflex to cultur eugenia 12-25-2017 Bilirubin Ql (U) Negative Normal Negative [facility] Clarity Nom (U) Clear Normal Clear [facility] Color Nom (U) Yellow Normal Straw/[place] Glucose Ql (U) Negative Normal Negative [facility] Hemoglobin Test strip Ql (U) Negative Normal Negative [facility] Ketones Ql (U) Negative Normal Negative [facility] Leukocyte esterase Test strip Ql (U) Negative Normal Negative [facility] Nitrite Test strip Ql (U) Negative Normal Negative [facility] pH Test strip (U) 7.0 [pH] Normal 5.0-9.0 [facility] Protein Test strip Ql (U) Negative Normal Negative [facility] Specific gravity Relative Density (U) 1.015 Normal 1.005-1.03 [facility] Urine Reflexed to Culture Not Indicated Normal [facility] Urobilinogen Test strip Qn (U) 0.2 {Katy'U}/dL Normal < 2.0 [facility] Vital Signs Date Time Vital Sign Value Performing Clinician Facility 07-13-2024 14:56-0400 Body height 172.7 cm Rufino Arias DPM Work Phone: [facility] 07-13-2024 14:56-0400 Body mass index (BMI) [Ratio] 47.74 kg/m2 Rufino Arias DPM Work Phone: [facility] 07-13-2024 14:56-0400 Body weight 142.43 kg Rufino Arias DPM Work Phone: [facility] 07-13-2024 14:56-0400 Respiratory rate 18 /min Rufino Arias DPM Work Phone: [facility] 06-26-2024 13:44-0400 Body height 172.7 cm Navarro Oviedo MD Work Phone: [facility] 06-26-2024 13:44-0400 Body mass index (BMI) [Ratio] 47.74 kg/m2 Navarro Oviedo MD Work Phone: [facility] 06-26-2024 13:44-0400 Body temperature 97.11 [degF] Navarro Oviedo MD Work Phone: [facility] 06-26-2024 13:44-0400 Body weight 142.43 kg Navarro Oviedo MD Work Phone: [facility] 06-26-2024 13:44-0400 Diastolic blood pressure 78 mm[Hg] Navarro Oviedo MD Work Phone: [place] [facility] 06-26-2024 13:44-0400 Heart rate 66 /min Navarro Oviedo MD Work Phone: [facility] 06-26-2024 13:44-0400 Respiratory rate 22 /min Navarro Oviedo MD Work Phone: [facility] 06-26-2024 13:44-0400 SaO2% (BldA) [Mass fraction] 95 % Navarro Oviedo MD Work Phone: [facility] 06-26-2024 13:44-0400 Systolic blood pressure 142 mm[Hg] Navarro Oviedo MD Work Phone: [facility] 06-22-2024 10:15-0400 Diastolic blood pressure 90 mm[Hg] Gordon Rangel [facility] 06-22-2024 10:15-0400 Heart rate 69 /min Gordon Rangel MD Work Phone: [facility] 06-22-2024 10:15-0400 Respiratory rate 13 /min Gordon Rangel MD Work Phone: [facility] 06-22-2024 10:15-0400 SaO2% (BldA) [Mass fraction] 98 % Gordon Rangel MD Work Phone: [facility] 06-22-2024 10:15-0400 Systolic blood pressure 142 mm[Hg] Gordon Rangel MD Work Phone: [facility] 06-22-2024 09:38-0400 Body temperature 97 [degF] Gordon [facility]angel [facility] 06-22-2024 08:16-0400 Body height 170.2 cm Gordon Rangel MD Work Phone: [facility] 06-22-2024 08:16-0400 Body mass index (BMI) [Ratio] 49.4 kg/m2 Gordon Rangel MD [facility] 06-22-2024 08:16-0400 Body weight 143.06 kg Gordon Rangel MD Work Phone: [facility] 06-01-2024 16:54-0400 Body height 172.7 cm Rufino Arias DPClemencia Work Phone: [facility] 06-01-2024 16:54-0400 Body mass index (BMI) [Ratio] 46.53 kg/m2 Rufino Arias DPM Work Phone: [facility] 06-01-2024 16:54-0400 Body weight 138.8 kg Rufino Arias DPM Work Phone: [facility] 06-01-2024 16:54-0400 Respiratory rate 18 /min Rufino Arias DPM Work Phone: [facility] 05-18-2024 16:32-0400 Body height 172.7 cm Rufino Arias DPM Work Phone: [facility] 05-18-2024 16:32-0400 Body mass index (BMI) [Ratio] 46.53 kg/m2 Rufino Brown DPM Work Phone: [facility] 05-18-2024 16:32-0400 Body weight 138.8 kg Rufino Brown DPM Work Phone: [facility] 05-18-2024 16:32-0400 Respiratory rate 18 /min Rufino Arias DPM Work Phone: [facility] 03-30-2024 16:33-0500 Body height 172.7 cm Rufino Brown DPM Work Phone: [facility] 03-30-2024 16:33-0500 Body mass index (BMI) [Ratio] 46.53 kg/m2 Rufino Arias DPM Work Phone: [facility] 03-30-2024 16:33-0500 Body weight 138.8 kg Rufino Arias DPM Work Phone: [facility] 03-30-2024 16:33-0500 Respiratory rate 16 /min Rufino Brown DPM Work Phone: [facility] 03-13-2024 14:45-0500 Body height 172.7 cm Sonya Villa CONTRACTS REPRESENTATIVE Work Phone: [facility] 03-13-2024 14:45-0500 Body mass index (BMI) [Ratio] 47.1 kg/m2 Sonya Villa CONTRACTS REPRESENTATIVE Work Phone: [facility] 03-13-2024 14:45-0500 Body temperature 97.39 [degF] Sonya Villa CONTRACTS REPRESENTATIVE Work Phone: [facility] 03-13-2024 14:45-0500 Body weight 140.52 kg Sonya Villa CONTRACTS REPRESENTATIVE Work Phone: [facility] 03-13-2024 14:45-0500 Diastolic blood pressure 90 mm[Hg] Sonya Villa CONTRACTS REPRESENTATIVE Work Phone: [facility] 03-13-2024 14:45-0500 Heart rate 89 /min Sonya Villa CONTRACTS REPRESENTATIVE Work Phone: [facility] 03-13-2024 14:45-0500 Respiratory rate 16 /min Sonya Villa CONTRACTS REPRESENTATIVE Work Phone: [facility] 03-13-2024 14:45-0500 SaO2% (BldA) [Mass fraction] 98 % Sonya Villa CONTRACTS REPRESENTATIVE Work Phone: [facility] 03-13-2024 14:45-0500 Systolic blood pressure 140 mm[Hg] Sonya Villa CONTRACTS REPRESENTATIVE Work Phone: [facility] 03-09-2024 14:38-0500 Body height 172.7 cm Sonya Villa CONTRACTS REPRESENTATIVE Work Phone: [facility] 03-09-2024 14:38-0500 Body mass index (BMI) [Ratio] 46.98 kg/m2 Sonya Villa CONTRACTS REPRESENTATIVE Work Phone: [facility] 03-09-2024 14:38-0500 Body temperature 97.81 [degF] Sonya Villa CONTRACTS REPRESENTATIVE Work Phone: [facility] 03-09-2024 14:38-0500 Body weight 140.16 kg Sonya Villa CONTRACTS REPRESENTATIVE Work Phone: [facility] 03-09-2024 14:38-0500 Diastolic blood pressure 88 mm[Hg] Sonya Villa CONTRACTS REPRESENTATIVE Work Phone: [facility] 03-09-2024 14:38-0500 Heart rate 91 /min Sonya Villa CONTRACTS REPRESENTATIVE Work Phone: [facility] 03-09-2024 14:38-0500 Respiratory rate 16 /min Sonya Villa CONTRACTS REPRESENTATIVE Work Phone: [facility] 03-09-2024 14:38-0500 SaO2% (BldA) [Mass fraction] 96 % Sonya Villa CONTRACTS REPRESENTATIVE Work Phone: [facility] 03-09-2024 14:38-0500 Systolic blood pressure 158 mm[Hg] Sonya Villa CONTRACTS REPRESENTATIVE Work Phone: [facility] 11-23-2023 15:22-0400 Body mass index (BMI) [Ratio] 48.24 kg/m2 Sonya Villa CONTRACTS REPRESENTATIVE Work Phone: [facility] 11-23-2023 15:22-0400 Body temperature 97.3 [degF] Soyna Villa CONTRACTS REPRESENTATIVE Work Phone: [facility] 11-23-2023 15:22-0400 Body weight 139.71 kg Sonya Villa CONTRACTS REPRESENTATIVE Work Phone: [facility] 11-23-2023 15:22-0400 Diastolic blood pressure 102 mm[Hg] Sonya Villa CONTRACTS REPRESENTATIVE Work Phone: [facility] 11-23-2023 15:22-0400 Heart rate 82 /min Sonya Villa CONTRACTS REPRESENTATIVE Work Phone: [facility] 11-23-2023 15:22-0400 SaO2% (BldA) [Mass fraction] 97 % Sonya Villa CONTRACTS REPRESENTATIVE Work Phone: [facility] 11-23-2023 15:22-0400 Systolic blood pressure 146 mm[Hg] Sonya Villa CONTRACTS REPRESENTATIVE Work Phone: [facility] 10-11-2023 15:42-0400 Body height 170.2 cm Sonya Villa CONTRACTS REPRESENTATIVE Work Phone: [facility] 10-11-2023 15:42-0400 Body mass index (BMI) [Ratio] 49.02 kg/m2 Sonya Villa CONTRACTS REPRESENTATIVE Work Phone: [facility] 10-11-2023 15:42-0400 Body temperature 97.3 [degF] Sonya Villa CONTRACTS REPRESENTATIVE Work Phone: [facility] 10-11-2023 15:42-0400 Body weight 141.98 kg Sonya Villa CONTRACTS REPRESENTATIVE Work Phone: [facility] 10-11-2023 15:42-0400 Diastolic blood pressure 90 mm[Hg] Sonya Villa CONTRACTS REPRESENTATIVE Work Phone: [facility] 10-11-2023 15:42-0400 Heart rate 89 /min Sonya Villa CONTRACTS REPRESENTATIVE Work Phone: [facility] Comment on above: 100% O2 10-11-2023 15:42-0400 Systolic blood pressure 136 mm[Hg] Sonya Villa CONTRACTS REPRESENTATIVE Work Phone: [facility] 12-25-2017 19:30-0500 Body mass index (BMI) [Ratio] [facility]AN [facility] Encounters Encounter Date Encounter Type Care Provider Facility Start: 07-13-2024 End: 07-13-2024 ambulatory RUFINO ARIAS Not Available Start: 07-13-2024 End: 07-13-2024 Patient encounter procedure Rufino Arias DPM Work Phone: [facility] Comment on above: Verruca plantaris (P rimary Dx); Foot pain, right Start: 06-26-2024 End: 06-26-2024 Bamboo flowsheet Navarro Oviedo MD Work Phone: [facility] Start: 06-26-2024 End: 06-26-2024 Bamboo flowsheet Navarro Oviedo MD Work Phone: [facility] Start: 06-26-2024 End: 06-26-2024 ambulatory NAVARRO OVIEDO Not Available Start: 06-26-2024 End: 06-26-2024 Office outpatient visit 25 minutes Navarro Oviedo MD Work Phone: [facility] Comment on above: Primary hypertension (CMS/HCC) (Primary Dx); URI, acute; Class 3 severe obesity due to excess calories with serious comorbidity and body mass index (BMI) of 45.0 to 49.9 in adult; Encounter for weight management; Opioid dependence, uncomplicated (CMS/HCC) Start: 06-22-2024 End: 06-22-2024 ambulatory MANHATTAN Renetta RANGEL [facility] Start: 06-22-2024 End: 06-22-2024 Subsequent hospital visit by physician Gordon Rangel MD Work Phone: [facility] Start: 06-01-2024 End: 06-01-2024 ambulatory RUFINO ARIAS Not Available Start: 06-01-2024 End: 06-01-2024 Patient encounter procedure Rufino Arias DPM Work Phone: [facility] Comment on above: Verruca plantaris (P rimary Dx); Foot pain, right Start: 06-01-2024 End: 06-01-2024 Bamboo flowsheet Rufino Arias DPM Work Phone: [facility] Start: 06-01-2024 End: 06-01-2024 Bamboo flowsheet Rufino Arias DPM Work Phone: [facility] Start: 05-21-2024 End: 05-21-2024 ambulatory [facility] Start: 05-21-2024 End: 05-21-2024 Encounter for other preprocedural examination [facility] Start: 05-21-2024 End: 05-21-2024 Subsequent hospital visit by physician Sonya Villa APRN - CONTRACTS REPRESENTATIVE Work Phone: [facility] Start: 05-18-2024 End: 05-18-2024 Patient encounter procedure Rufino Arias DPM Work Phone: [facility] Comment on above: Verruca plantaris (P rimary Dx); Foot pain, right Start: 05-18-2024 End: 05-18-2024 ambulatory RUFINO ARIAS Not Available Start: 05-18-2024 End: 05-18-2024 Bamboo flowsheet Rufino Arias DPM Work Phone: [facility] Start: 05-18-2024 End: 05-18-2024 Bamboo flowsheet Rufino Arias DPM Work Phone: [facility] Start: 05-04-2024 End: 05-04-2024 ambulatory RUFINO ARIAS Not Available Start: 05-04-2024 End: 05-04-2024 Bamboo flowsheet Rufino Arias DPM Work Phone: [facility] Start: 05-04-2024 End: 05-04-2024 Bamboo flowsheet Rufino Arias DPM Work Phone: [facility] Start: 04-20-2024 End: 04-20-2024 ambulatory RUFINO ARIAS Not Available Start: 03-30-2024 End: 03-30-2024 ambulatory RUFINO ARIAS Not Available Start: 03-30-2024 End: 03-30-2024 Office outpatient new 30 minutes Rufino Arias DPM Work Phone: [facility] Comment on above: Cellulitis of right thumb (Primary Dx); Neoplasm of uncertain behavior of skin; Verruca plantaris; Foot pain, right Start: 03-30-2024 End: 03-30-2024 Bamboo flowsheet Rufino Arias DPM Work Phone: [facility] Start: 03-30-2024 End: 03-30-2024 Bamboo flowsheet Rufino Renetta Toi DPM Work Phone: [facility] Start: 03-23-2024 End: 03-23-2024 ambulatory SONYA PARRATRICK Not Available Start: 03-21-2024 End: 03-21-2024 Clinisync Result Encounter Sonya Herediak CONTRACTS REPRESENTATIVE Work Phone: [facility] Unsolicited Start: 03-21-2024 End: 03-21-2024 Clinisync Result Encounter Sonya Herediak CONTRACTS REPRESENTATIVE Work Phone: [facility] Unsolic[facility] Start: 03-21-2024 End: 03-21-2024 Orders Only Sonya Herediak CONTRACTS REPRESENTATIVE Work Phone: [facility] Comment on above: Vitamin D deficiency (Primary Dx); Anemia due to folic acid deficiency, unspecified deficiency type Start: 03-20-2024 End: 03-20-2024 Clinisync Result Encounter Sonya Herediak CONTRACTS REPRESENTATIVE Work Phone: [facility] Start: 03-20-2024 End: 03-20-2024 Clinisync Result Encounter Sonya Herediak CONTRACTS REPRESENTATIVE Work Phone: [facility] Start: 03-13-2024 End: 03-13-2024 ambulatory SONYA PARRATRICK Not Available Start: 03-13-2024 End: 03-13-2024 Periodic preventive med est patient 18-39 yrs Sonya Villa CONTRACTS REPRESENTATIVE Work Phone: [facility] Comment on above: Wellness examination (Primary Dx); Fatigue, unspecified type; Anemia, unspecified type; Acute paronychia of right thumb Start: 03-13-2024 End: 03-13-2024 Patient encounter status Sonya Herediak CONTRACTS REPRESENTATIVE Work Phone: [facility] Start: 03-10-2024 End: 03-10-2024 Clinisync Result Encounter Sonya Villa CONTRACTS REPRESENTATIVE Work Phone: [facility] Start: 03-10-2024 End: 03-10-2024 Clinisync Result Encounter Sonya Villa CONTRACTS REPRESENTATIVE Work Phone: [facility] Start: 03-09-2024 End: 03-09-2024 ambulatory SONYA VILLA Not Available Start: 03-09-2024 End: 03-09-2024 Office outpatient visit 10 minutes Sonya Villa CONTRACTS REPRESENTATIVE Work Phone: [facility] Comment on above: Acute paronychia of right thumb (Primary Dx); Primary hypertension (CMS/HCC) Start: 03-09-2024 End: 03-09-2024 Bamboo flowsheet Sonya Villa CONTRACTS REPRESENTATIVE Work Phone: [facility] Start: 03-09-2024 End: 03-09-2024 Bamboo flowsheet Sonya Villa CONTRACTS REPRESENTATIVE Work Phone: [facility] Start: 12-09-2023 End: 12-09-2023 Orders Only Sonya Villa CONTRACTS REPRESENTATIVE Work Phone: [facility] Comment on above: Acute non-recurrent frontal sinusitis (Primary Dx) Start: 11-23-2023 End: 11-23-2023 Periodic preventive med est patient 18-39 yrs Sonya Villa CONTRACTS REPRESENTATIVE Work Phone: [facility] Comment on above: Blood pressure eleva yue without history of HTN (Primary Dx); Morbid obesity (CMS/HCC); Encounter for wellness examination in adult; Tinea pedis of both feet; Opioid abuse, in remission (CMS/HCC) Start: 11-23-2023 End: 11-23-2023 ambulatory SONYA VILLA Not Available Start: 11-23-2023 End: 11-23-2023 Bamboo flowsheet Sonya Villa CONTRACTS REPRESENTATIVE Work Phone: [facility] Start: 11-23-2023 End: 11-23-2023 Bamboo flowsheet Sonya Robertszpatrick CONTRACTS REPRESENTATIVE Work Phone: [facility] Start: 11-23-2023 End: 11-23-2023 Patient encounter status Sonya Herediak CONTRACTS REPRESENTATIVE Work Phone: [facility] Start: 10-11-2023 End: 10-11-2023 ambulatory SONYA VELOZPATRICK Not Available Start: 10-11-2023 End: 10-11-2023 Office outpatient visit 15 minutes Sonya Robertszpatrick CONTRACTS REPRESENTATIVE Work Phone: [facility] Comment on above: Encounter for weight management (Primary Dx) Start: 08-12-2023 End: 08-12-2023 ambulatory SHAIKH EMILIANA Not Available Start: 04-05-2023 Patient encounter status Huyen Robertszpatrick CONTRACTS REPRESENTATIVE Work Phone: [facility] Start: 07-14-2022 End: 07-15-2022 ambulatory Liliane Devries PA-C [facility] Start: 07-06-2022 End: 07-07-2022 ambulatory Liliane Devries PA-C [facility] Start: 06-26-2022 End: 06-27-[address] JESSICA GARG . Facility:[facility] Start: 06-16-2022 End: 06-16-2022 ambulatory SHAIKH Magali HOPSON Facility:[facility] Start: 06-11-2022 End: 06-12-[address] JESSICA GARG . Facility:[facility] Start: 05-28-2022 End: 05-29-2022 ambulatory Suresh Broderick MD Facility[facility] Start: 04-22-2022 End: 04-22-2022 ambulatory SHAIKH Magali HOPSON Facility:[facility] Start: 08-11-2021 End: 08-12-2021 ambulatory SHAIKH Magali HOPSON Facility:[facility] Start: 04-24-2019 End: 04-24-2019 Emergency department patient visit UNKNOWN PROVIDER Facility:[facility] Start: 04-05-2018 End: 04-05-2018 Emergency department patient visit NO FAMILY DOCTOR NO FAMILY DOCTOR Facility:[facility] Start: 02-01-2018 End: 02-02-2018 Patient encounter procedure TINA A [facility] Start: 01-31-2018 End: 02-01-2018 Patient encounter procedure TINA A [facility] Start: 01-30-2018 End: 01-31-2018 Patient encounter procedure TINA A [facility] Start: 01-29-2018 End: 01-30-2018 Patient encounter procedure TINA A [facility] Start: 01-28-2018 End: 01-29-2018 Patient encounter procedure TINA A [facility] Start: 01-27-2018 End: 01-28-2018 Patient encounter procedure TINA A [facility] Start: 01-26-2018 End: 01-27-2018 Patient encounter procedure TINA A [facility] Start: 01-25-2018 End: 01-26-2018 Patient encounter procedure TINA A [facility] Start: 01-24-2018 End: 01-25-2018 Patient encounter procedure TINA A [facility] Start: 01-23-2018 End: 01-24-2018 Patient encounter procedure TINA A [facility] Start: 01-22-2018 End: 01-23-2018 Patient encounter procedure TINA A [facility] Start: 01-21-2018 End: 01-22-2018 Patient encounter procedure TINA A [facility] Start: 01-20-2018 End: 01-21-2018 Patient encounter procedure TINA A [facility] Start: 01-19-2018 End: 01-20-2018 Patient encounter procedure TINA A [facility] Start: 01-18-2018 End: 01-19-2018 Patient encounter procedure TINA A [facility] Start: 01-17-2018 End: 01-18-2018 Patient encounter procedure TINA A [facility] Start: 01-16-2018 End: 01-17-2018 Patient encounter procedure TINA A [facility] Start: 01-15-2018 End: 01-16-2018 Patient encounter procedure TINA A [facility] Start: 01-14-2018 End: 01-15-2018 Patient encounter procedure TINA Jackson [facility] Start: 01-13-2018 End: 01-14-2018 Patient encounter procedure TINA Jackson [facility] Start: 01-12-2018 End: 01-13-2018 Patient encounter procedure TINA Jackson [facility] Start: 01-11-2018 End: 01-12-2018 Patient encounter procedure TINA A [facility] Start: 01-10-2018 End: 01-11-2018 Patient encounter procedure TINA A [facility] Start: 01-09-2018 End: 01-10-2018 Patient encounter procedure [facility] Renetta [facility] Start: 01-08-2018 End: 01-09-2018 Patient encounter procedure [facility] Start: 01-07-2018 End: 01-08-2018 Patient encounter procedure [facility] Start: 01-06-2018 End: 01-07-2018 Patient encounter procedure [facility] Renetta [facility] Start: 01-05-2018 End: 01-06-2018 Patient encounter procedure [facility] Start: 12-26-2017 End: 01-04-2018 Evaluation and management of inpatient [facility] Start: 12-25-2017 End: 12-25-2017 Emergency department patient visit [facility] Procedures Date Procedure Procedure Detail Performing Clinician Start: 06-22-2024 Gonadotropin chorion ic qualitative Gordon Rangel MD Work Phone: Start: 05-21-2024 Ecg routine ecg w/le ast 12 lds w/i&r Melyssa Cortez [employer] - VETERINARY ASSISTANT TECHNICIAN Work Phone: Start: 03-21-2024 OCCULT BLOOD* Sonya Villa CONTRACTS REPRESENTATIVE Work Phone: Start: 03-20-2024 [facility] Sepideh yasir Villa CONTRACTS REPRESENTATIVE Work Phone: Start: 03-10-2024 ALL CBC WITH AUTO DIFF Sonya Villa CONTRACTS REPRESENTATIVE Work Phone: Start: 08-25-2022 Microscopic observat ion [Identifier] in Cervix by Cyto stain Sonya Villa CONTRACTS REPRESENTATIVE Work Phone: Start: 04-24-2019 DISCHARGE PATIENT UNKNO WN PROVIDER Start: 02-01-2018 REMOVE PICC IVAN TO GENEVIEVE Start: 02-01-2018 Basic metabolic pane l calcium [...] CONTINUOUS VERO BAGHDY Start: 01-04-2018 DISCHARGE PATIENT SHAMIKACOU Lila BAGHDY Start: 01-04-2018 NURSING COMMUNICATION Y ACOUB [...] RT VERO Start: 01-03-2018 NURSING COMMUNICATION Y Start: 01-03-2018 [...] pr date Start: 01-02-2018 INCENTIVE SPIROMETRY RT Start: 01-02-2018 INITIATE OXYGEN THER APY PROTOCOL Start: 01-02-2018 PULSE OXIMETRY, CONTINUOUS Start: 01-02-2018 INCENTIVE SPIROMETRY RT Start: 01-02-2018 Blood count complete auto&auto difrntl wbc Start: 01-02-2018 INCENTIVE SPIROMETRY RT Start: 01-02-2018 PULSE OXIMETRY, CONTINUOUS Start: 01-02-2018 INCENTIVE SPIROMETRY RT Start: 01-02-2018 INCENTIVE SPIROMETRY RT Start: 01-02-2018 PULSE OXIMETRY, CONTINUOUS Start: 01-02-2018 INCENTIVE SPIROMETRY RT Start: 01-01-2018 INCENTIVE SPIROMETRY RT Start: 01-01-2018 PULSE OXIMETRY, CONTINUOUS Start: 01-01-2018 INCENTIVE SPIROMETRY RT Start: 01-01-2018 INCENTIVE SPIROMETRY RT Start: 01-01-2018 INCENTIVE SPIROMETRY RT Start: 01-01-2018 PULSE OXIMETRY, CONTINUOUS Start: 01-01-2018 INCENTIVE SPIROMETRY RT Start: 01-01-2018 NURSING COMMUNICATION Y Start: 01-01-2018 INCENTIVE SPIROMETRY RT Start: 01-01-2018 [...] 12-31-2017 Insj prph cvc w/o house bq port/sealer dry cell age 5 yr/> Start: 12-31-2017 Us vasc access sits vsl patency ndl entry Start: 12-31-2017 INCENTIVE SPIROMETRY RT Start: 12-31-2017 INCENTIVE SPIROMETRY RT Start: 12-31-2017 PULSE OXIMETRY, CONTINUOUS Start: 12-31-2017 INCENTIVE SPIROMETRY RT Start: 12-31-2017 INCENTIVE SPIROMETRY RT Start: 12-31-2017 PULSE OXIMETRY, CONTINUOUS Start: 12-31-2017 INCENTIVE SPIROMETRY RT Start: 12-31-2017 INSERT PICC LINE Start: 12-31-2017 MISCELLANEOUS NURSIN G CARE ORDER (SPECIFY) VERO BAG Start: 12-31-2017 NOTIFY PHYSICIAN (SPECIFY) VERO Start: 12-31-2017 NURSING COMMUNICATION Y ACOUB Start: 12-31-2017 INCENTIVE SPIROMETRY RT VERO Start: 12-31-2017 INCENTIVE SPIROMETRY RT VERO Start: 12-31-2017 INITIATE OXYGEN THER APY PROTOCOL VERO Start: 12-31-2017 PULSE OXIMETRY, CONTINUOUS VERO BAGHD Start: 12-31-2017 Blood count complete auto&auto difrntl [...] ion of blood, culture VERO BAG Start: 12-31-2017 INCENTIVE SPIROMETRY RT [...] INCENTIVE SPIROMETRY RT VERO BAGHD Start: 12-30-2017 NURSING COMMUNICATION Y ACOUB Start: 12-30-2017 Blood count complete auto&auto difrntl wbc VERO Start: 12-30-2017 Comprehensive metabo lic panel VERO Start: 12-30-2017 INCENTIVE SPIROMETRY RT VERO Start: 12-30-2017 Ct maxillofacial w/o contrast material VERO Start: 12-30-2017 INITIATE OXYGEN THER APY PROTOCOL VERO Start: 12-30-2017 PULSE OXIMETRY, CONTINUOUS VERO BAGHD Start: 12-30-2017 INCENTIVE SPIROMETRY RT VERO Start: 12-30-2017 INCENTIVE SPIROMETRY RT VERO Start: 12-30-2017 INCENTIVE SPIROMETRY RT VERO Start: 12-30-2017 PULSE OXIMETRY, CONTINUOUS VERO BAG Start: 12-30-2017 INCENTIVE SPIROMETRY RT VERO Start: 12-30-2017 INCENTIVE SPIROMETRY RT VERO Start: 12-30-2017 PULSE OXIMETRY, CONTINUOUS VERO BAG Start: 12-30-2017 INCENTIVE SPIROMETRY RT VERO Start: 12-29-2017 INCENTIVE SPIROMETRY RT VERO Start: 12-29-2017 PULSE OXIMETRY, CONTINUOUS VERO BAG Start: 12-29-2017 INCENTIVE SPIROMETRY RT VERO Start: 12-29-2017 INCENTIVE SPIROMETRY RT VERO Start: 12-29-2017 DIET GENERAL VERO Start: 12-29-2017 PULSE OXIMETRY, CONTINUOUS VERO BAGHD Start: 12-29-2017 INCENTIVE SPIROMETRY RT VERO BAGHD Start: 12-29-2017 ALTAGRACIA (VAGINAL, RESPIRATORY) VERO BAG Start: 12-29-2017 AFB STAIN VERO BAG HD Start: 12-29-2017 Smr prim src fluorescent&/afs bct fngi parasit VERO BAGHD Start: 12-29-2017 ACID FAST CULTURE WI TH SMEAR VERO BAG Start: 12-29-2017 Cell count misc body fluids [...] OXIMETRY, CONTINUOUS VERO BAGHDY Start: 12-29-2017 CYTOLOGY, NON-HIGH LIFT DRIVER YACOU B BAGHDY Start: 12-29-2017 INCENTIVE SPIROMETRY [...] VERO BAGHDY Start: 12-29-2017 IP CONSULT TO CHEMIC AL DEPENDENCY VERO BAGHDY Start: 12-29-2017 INCENTIVE [...] VERO Start: 12-28-2017 Blood count complete automated VERO Start: 12-28-2017 INCENTIVE SPIROMETRY RT VERO [...] RT VERO Start: 12-28-2017 FULL CODE VERO Start: 12-28-2017 NURSING COMMUNICATION Y AC Start: 12-28-2017 PULSE OXIMETRY, CONTINUOUS VERO Start: 12-28-2017 VERIFY INFORMED CONSENT VERO Start: 12-28-2017 INCENTIVE SPIROMETRY RT VERO Start: 12-28-2017 INCENTIVE SPIROMETRY RT VERO Start: 12-27-2017 INCENTIVE SPIROMETRY RT VERO Start: 12-27-2017 INCENTIVE SPIROMETRY RT VERO Start: 12-27-2017 AMBULATE PATIENT VERO Start: 12-27-2017 ASSESS GAG REFLEX COU B Start: 12-27-2017 INITIATE OXYGEN THER APY PROTOCOL VERO Start: 12-27-2017 TOBACCO CESSATION EDUCATION VERO Start: 12-27-2017 VITAL SIGNS VERO Start: 12-27-2017 WOUND CARE VERO Start: 12-27-2017 ADVANCE DIET VICTORIA RATED (NURSING COMMUNICATION) Start: 12-27-2017 INCENTIVE SPIROMETRY RT Start: 12-27-2017 Echo transesophag r- t 2d w/prb img acquisj i&r VERO Start: 12-27-2017 INCENTIVE SPIROMETRY RT Start: 12-27-2017 INCENTIVE SPIROMETRY RT Start: 12-27-2017 IP CONSULT TO CARDIOLOGY Start: 12-27-2017 IP CONSULT TO PAIN MANAGEMENT Start: 12-27-2017 IP CONSULT TO INFECT IOUS DISEASES Start: 12-27-2017 INCENTIVE SPIROMETRY RT Start: 12-27-2017 Echo tthrc r-t 2d w/wom-mode compl spec&colr d Start: 12-27-2017 INCENTIVE SPIROMETRY RT Start: 12-27-2017 TTE w or wo fol wcon,Doppler Start: 12-27-2017 INCENTIVE SPIROMETRY RT Start: 12-27-2017 PREPARE RBC (CROSSMATCH) Start: 12-27-2017 TYPE AND SCREEN Start: 12-27-2017 INCENTIVE SPIROMETRY RT Start: 12-27-2017 Blood count complete auto&auto difrntl wbc Start: 12-27-2017 Ferritin [Mass/volum e] in Serum or Plasma VERO Start: 12-27-2017 IRON AND TIBC VERO JAYNE GILBERT Start: 12-27-2017 RETICULOCYTES VERO Start: 12-27-2017 INCENTIVE SPIROMETRY RT Start: 12-27-2017 INCENTIVE SPIROMETRY RT Start: 12-27-2017 INCENTIVE SPIROMETRY RT Start: 12-27-2017 INCENTIVE SPIROMETRY RT VERO BAGHDY [...] HDY Start: 12-26-2017 CONTACT ISOLATION YACOU B BAG Start: 12-26-2017 IP CONSULT TO PULMONOLOGY VERO [...] HDY Start: 12-26-2017 PATIENT STATUS (DIRECT) VERO DALTON [...] Start: 12-25-2017 Comprehensive metabo lic panel IVAN JIM Start: 12-25-2017 LACTIC ACID, PLASMA TANIKA HARD JIM Start: 12-25-2017 Prothrombin time TARA FERNANDEZ Start: 12-25-2017 TROPONIN IVAN TO BEY Start: 12-25-2017 Radiologic exam ches t 2 views IVAN FERNANDEZ Start: 12-25-2017 Blood count complete auto&auto difrntl wbc IVAN JIM Start: 12-25-2017 EKG 12-LEAD IVAN TO BEY Start: 12-25-2017 SALINE LOCK IV IVAN FERNANDEZ Start: 01-01-2015 Microscopic observat ion [Identifier] in Cervix by Cyto stain Sonya Villa APRN - [facility] Work Phone: Plan of Treatment Date Care Activity Detail Author Start: 10-02-2027 Screening for malign ant neoplasm of cervix HPV/Cotest [facility] Start: 08-26-2027 Screening for malign ant neoplasm of cervix [facility] Start: 10-16-2024 Influenza vaccination Influenz a Vaccine (Season Ended) [facility] Start: 09-15-2024 Influenza vaccination Flu vacc ine (Season Ended) [facility] Start: 08-17-2024 End: 08-17-2024 Patient encounter procedure 08/17/2024 2:45 PM EDT Office Visit [facility] [address] [place] [phone] Navarro Oviedo MD [address] [place] [phone] [facility] Start: 06-29-2024 End: 06-29-2024 Patient encounter procedure 06/29/2024 3:00 PM EDT Office Visit [facility] [address] [facility] [address] [place] [phone] Rufino Arias DPM [address] [facility] [address] [place] [address] [facility] Start: 06-26-2024 End: 06-26-2024 Patient encounter procedure 06/26/2024 1:30 PM EDT Office Visit [facility] [address] [place] [address] Navarro Oviedo MD [address] [place] [address] [facility] Start: 06-22-2024 End: 06-22-2024 Admission to same day surgery center 06/22/2024 8:00 AM EDT - 06/22/2024 8:36 AM EDT Surgery [facility] [address] [place] [address] Gordon Rangel MD [address] [place] [address] [facility] Comment on above: COLONOSCOPY Start: 06-22-2024 End: 06-22-2024 Colon ca scrn not hi rsk ind [facility] Start: 06-22-2024 Subsequent hospital visit by physician 06/22/2024 8:00 AM EDT Hospital Encounter [facility] [address] [place] [address] Gordon Rangel MD [address] [place] [address] [facility] Start: 06-18-2024 End: 03-21-2025 25-hydroxyvitamin D3 [Mass/volume] in Serum or Plasma Vitamin D 25 hydroxy Lab Routine Vitamin D deficiency Expected: 06/18/2024 (Approximate), Expires: 03/21/2025 [facility] Comment on above: Expected: 06/18/2024 (Approximate), Expires: 03/21/2025 Start: 06-18-2024 End: 03-21-2025 Folate [Mass/volume] in Serum or Plasma Folate Lab Routine Anemia due to folic acid deficiency, unspecified deficiency type Expected: 06/18/2024 (Approximate), Expires: 03/21/2025 [facility] Work Phone: Comment on above: Expected: 06/18/2024 (Approximate), Expires: 03/21/2025 Start: 05-18-2024 End: 05-18-2024 Patient encounter procedure 05/18/2024 4:40 PM EDT Office Visit [facility] [address] [facility] [address] [place] [phone] Rufino Arias DPM [address] [facility] [address] [place] [address] Verruca plantaris (Primary Dx); Foot pain, right [facility] Comment on above: Verruca plantaris (P rimary Dx); Foot pain, right Start: 04-25-2024 End: 04-25-2024 Patient encounter procedure 04/25/2024 2:30 PM EDT Office Visit [facility] [address] [place] [phone] Navarro Oviedo MD [address] [place] [phone] [facility] Start: 04-24-2024 End: 04-24-2024 Patient encounter procedure 04/24/2024 3:00 PM EDT Office Visit [facility] [address] [place] [phone] Sonya Villa NP [address] [place] [phone] [facility] Start: 04-20-2024 End: 04-20-2024 Patient encounter procedure 04/20/2024 3:10 PM EST Office Visit [facility] [address] [place] [address] [place] [address] Rufino Arias, DPM [address] [address] [place] [address] [facility] Start: 03-30-2024 End: 03-30-2024 Patient encounter procedure 03/30/2024 4:10 PM EST Office Visit [facility] [address] [facility] [address] [place] [address] Rufino Arias, DPM [address] [address] [place] [address] [facility] Start: 03-13-2024 End: 03-13-2024 Patient encounter procedure 03/13/2024 2:30 PM EST Office Visit [facility] [address] [place] [address] Sonya Villa, CONTRACTS REPRESENTATIVE [address] [place] [address] [facility] Start: 03-13-2024 End: 03-13-2025 25-hydroxyvitamin D3 [Mass/volume] [...] Expected: 03/13/2024 (Approximate), Expires: 03/13/2025 [facility] Work Phone: Comment on above: Expected: 03/13/2024 [...] unspecified type Expected: 03/13/2024 (Approximate), Expires: 03/13/2025 [facility] Comment on above: Expected: 03/13/2024 (Approximate), Expires: 03/13/2025 Start: 03-13-2024 End: 03-13-2025 Iron + transferrin + TIBC Iron + transferrin + TIBC Lab Routine Fatigue, unspecified type Anemia, unspecified type Expected: 03/13/2024 (Approximate), Expires: 03/13/2025 [facility] Comment on above: Expected: 03/13/2024 (Approximate), Expires: 03/13/2025 Start: 03-13-2024 End: 03-13-2025 Measurement of occult blood in single stool specimen Occult blood x 1, stool Lab Routine Anemia, unspecified type Expected: 03/13/2024 (Approximate), Expires: 03/13/2025 [facility] Comment on above: Expected: 03/13/2024 (Approximate), Expires: 03/13/2025 Start: 12-28-2023 End: 12-28-2023 Patient encounter procedure 12/28/2023 3:30 PM EST [facility] Visit [facility] [address] [place] [address] Sonya Villa NP [address] [place] [address] [facility] Start: 11-23-2023 End: 11-23-2023 Patient encounter procedure 11/23/2023 3:30 PM EDT Office Visit [facility] [address] [place] [address] Sonya Villa, BEATRIZ [address] [place] [phone] Blood pressure elevated without history of HTN (Primary Dx); Morbid obesity (CMS/HCC) [facility] Comment on above: Blood pressure eleva yue without history of HTN (Primary Dx); Morbid obesity (CMS/HCC) Start: 11-23-2023 End: 11-22-2024 CBC W Auto Differential panel - Blood CBC and differential Lab Routine Blood pressure elevated without history of HTN Encounter for wellness examination in adult Expected: 11/23/2023 (Approximate), Expires: 11/22/2024 [facility] Comment on above: Expected: 11/23/2023 (Approximate), Expires: 11/22/2024 Start: 11-23-2023 End: 11-22-2024 Comprehensive metabolic 2000 panel - Serum or Plasma Comprehensive metabolic panel Lab Routine Blood pressure elevated without history of HTN Encounter for wellness examination in adult Expected: 11/23/2023 (Approximate), Expires: 11/22/2024 [facility] Comment on above: Expected: 11/23/2023 (Approximate), Expires: 11/22/2024 Start: 11-23-2023 End: 11-22-2024 Hemoglobin A1c/Hemoglobin.total in Blood Hemoglobin A1c Lab Routine Encounter for wellness examination in adult Expected: 11/23/2023 (Approximate), Expires: 11/22/2024 [facility] Comment on above: Expected: 11/23/2023 (Approximate), Expires: 11/22/2024 Start: 11-23-2023 End: 11-22-2024 Lipid 1996 panel - Serum or Plasma Lipid panel Lab Routine Encounter for wellness examination in adult Expected: 11/23/2023 (Approximate), Expires: 11/22/2024 [facility] Comment on above: Expected: 11/23/2023 (Approximate), Expires: 11/22/2024 Start: 11-23-2023 End: 11-22-2024 TSH W/REFLEX TO FT4 TSH W/REFLEX TO FT4 Lab Routine Blood pressure elevated without history of HTN Encounter for wellness examination in adult Expected: 11/23/2023 (Approximate), Expires: 11/22/2024 [facility] Work Phone: Comment on above: Expected: 11/23/2023 (Approximate), Expires: 11/22/2024 Start: 11-11-2023 End: 11-11-2023 Patient encounter procedure 11/11/2023 3:30 PM EDT Office Visit [facility] [address] [place] [address] Sonya Villa, BEATRIZ [address] [place] [address] [facility] Start: 10-17-2023 COVID-19 Vaccine ( season) COVID-19 Vaccine ( season) [facility] Start: 10-17-2023 Influenza vaccination Influenza Vacc ine (#1) [facility] Start: 2020 Diabetes screen Diabetes screen [facility] Start: 01-01-2018 Screening for malign ant neoplasm of cervix [facility] Start: 2015 Screening for malign ant neoplasm of cervix HPV (without or with Pap) [facility] Start: 2004 DTaP/Tdap/Td vaccine (1 - Tdap) DTaP/Tdap/Td vaccine (1 - Tdap) [facility] Start: 2004 Hepatitis A vaccine (1 of 2 - Risk 2-dose series) Hepatitis A vaccine (1 of 2 - Risk 2-dose series) [facility] Start: 2004 Hepatitis B vaccine (1 of 3 - 19+ 3-dose series) Hepatitis B vaccine (1 of 3 - 19+ 3-dose series) [facility] Start: 2004 Pneumococcal 0-49 ye ars Vaccine (1 of 2 - PCV) Pneumococcal 0-49 years Vaccine (1 of 2 - PCV) [facility] Start: 2000 HIV screening HIV screen [facility] Start: 1998 Varicella vaccine (1 of 2 - 13+ 2-dose series) Varicella vaccine (1 of 2 - 13+ 2-dose series) [facility] Start: 1997 Depression Screen Depression Screen [facility] Comprehensive metabo lic 2000 panel - Serum or Plasma Comprehensive metabolic panel Lab Routine Primary hypertension (CMS/HCC) Ordered: 03/09/2024 [facility] Work Phone: Comment on above: Ordered: 03/09/2024 Immunizations Immunization Date Immunization Notes [facility]-11-2018 influenza, injectabl e, quadrivalent, contains preservative Sonya Villa CONTRACTS REPRESENTATIVE Work Phone: [facility] 03-11-2018 influenza virus vaccine, unspecified formulation Sonya Villa CONTRACTS REPRESENTATIVE Work Phone: [facility] Payers Date Payer Category Payer Unknown 2022 Medicaid [id number] 2018 Medicaid [id number] 2017 Medicaid ACUTE 04-15-2016 Medicaid [id number] 1985 Unknown [id number] 2.16.84 0.1.206838.3.579.2.185 1985 Unknown [id number] 2.16.8 40.1.985884.3.579.2.182 1985 Unknown [id number] 2.16. 840.1.719907.3.579.2.732 1985 Unknown [id number] 2.16.84 0.1.846565.3.579.2.593 1985 Unknown [id number] 2.16.84 0.1.582547.3.579.2.593 1985 Unknown [id number] 2.16.84 0.1.270228.3.579.2.593 1985 Unknown [id number] 2.16.84 0.1.247181.3.579.2.593 1985 Unknown [id number] 2.16.84 0.1.199509.3.579.2.593 1985 Unknown [id number] 2.16. 840.1.135548.3.579.2.196 1985 Unknown [id number] 2.16. 840.1.615711.3.579.2.196 1985 Unknown [id number] 2.16. 840.1.812356.3.579.2.196 1985 Unknown [id number] 2.16.8 40.1.771078.3.579.2.173 1985 Unknown [id number] 2.16.8 40.1.533876.3.579.2.174 1985 Unknown [id number] 2.16.84 0.1.510325.3.579.2.1259 1985 Unknown [id number] 2.16.84 0.1.071681.3.579.2.1259 1985 Unknown [id number] 2.16.84 0.1.672289.3.579.2.1259 1985 Unknown [id number] 2.16.84 0.1.604607.3.579.2.1259 1985 Unknown [id number] 2.16.84 0.1.120567.3.579.2.1259 1985 Unknown [id number] 2.16.84 0.1.823226.3.579.2.1259 1985 Unknown [id number] 2.16.84 0.1.335229.3.579.2.1259 1985 Unknown [id number] 2.16.84 0.1.640448.3.579.2.1259 1985 Unknown [id number] 2.16.84 0.1.625957.3.579.2.1259 1985 Unknown [id number] 2.16.84 0.1.538871.3.579.2.1259 1985 Unknown [id number] 2.16.84 0.1.967873.3.579.2.1259 1985 Unknown [id number] 2.16.84 0.1.023697.3.579.2.1259 1985 Unknown [id number] 2.16.84 0.1.989366.3.579.2.1259 02-15-1959 Unknown [id number] Self-pay Unknown [id number] 2.16.8 40.1.122772.3.579.2.355 Social History Date Type Detail Facility Start: 08-12-2023 Tobacco smoking stat [facility] Occasional tobacco smoker [facility] History of tobacco use Cigarette Smoker [facility] History of tobacco use Passive smoker [facility] Start: 08-12-2023 End: 06-15-2024 Tobacco use and exposure Smokeless tobacco non-user [facility] Start: 10-11-2023 End: 07-13-2024 Alcoholic beverage intake Ex-drinker (finding) [facility] Start: 10-11-2023 End: 06-26-2024 History of Social function [facility] Start: 10-11-2023 End: 06-26-2024 Tobacco use panel [facility] Start: 07-25-2022 Tobacco Comment Thinking about quitt ing [facility] Start: 1985 Sex assigned at Not on file [facility] Start: 05-16-2024 End: 06-15-2024 Tobacco smoking status [facility] Smokes tobacco daily [facility] Start: 05-16-2024 End: 06-22-2024 Alcoholic beverage intake Current non-drinker of alcohol (finding) [facility] Start: 10-18-2012 Sex Female (finding) [facility] Physical abuse Denies [employer] Clinical Notes 10-11-2023 to 07-13-2024 Rufino Arias DPM - 07/13/2024 2:40 PM Yashira Oviedo MD - 06/26/2024 2:30 PM Yashira Oviedo MD - 06/26/2024 2:30 PM Yashira Oviedo MD - 06/26/2024 2:28 PM EDTDischarge Instructions Note Date & Type Note Facility 07-13-2024 History of Present illness Narrative Patient: Alesha Kenney : 1985 PCP: Navarro Oviedo MD SUBJECTIVE Pt presents today for follow [...] 1 each by Implant route 1 (one) time, Disp: , Rfl: fluticasone (Flonase) 50 MCG/ACT nasal [...] by mouth in the morning. Take before meals., Disp: 30 tablet, Rfl: 0 Social History: [...] Insecurity: No Food Insecurity (09/22/2022) Received from [facility] Hunger Screening Within the past 12 [...] procedure including high reoccurence rate, infection, pain and consent given. Application of DSD post procedure. Rufino Arias DPM documented in this encounter [facility] 06-26-2024 History of Present illness Narrative Associated Problem(s): URI, acute Illness likely due to a virus and [...] if no better or worse call for re-evaluation. Associated Problem(s): Primary hypertension (CMS/HCC) BP controlled and monitor PRN. Associated Problem(s): Class 3 severe obesity due to excess calories with serious comorbidity and body mass index (BMI) of 45.0 to 49.9 in adult Patient overweight and difficult time losing weight. [...] reviewed. Continue medications as prescribed. Refer to yarn wrapper. Images from the original note were not included. Subjective Patient ID: Alesha Kenney is a 39 y.o. female who presents for Follow-up (Started this morning with cough/Talk about weight loss). Follow up HTN and weight. Checking BP PRN and typically controlled. BP okay today. Taking medication daily and tolerating without side effects. C/o cough, congestion, and rhinorrhea since this am. Afebrile. Mild fatigue and run down. Frequent cough dry and nonproductive. Chest tight and SOB. LUCIO and sinus pressure in forehead and cheeks along with postnasal drip. Ears plugged and popping. Sore throat and pain to swallow. Mild nausea. recently sick. Using OTC medication and mild relief. No improvement in symptoms since onset. Interested in weight loss medication. Weight up 5 pounds. Tries to watch diet and eat healthy but not sure what she should be eating. Tried adipex in past and did well. Review of Systems Respiratory: Negative for cough, shortness of breath and wheezing. Cardiovascular: Negative for chest pain and palpitations. Gastrointestinal: Negative for abdominal pain, diarrhea, nausea and vomiting. Genitourinary: Negative for dysuria. Objective Physical Exam Constitutional: General: She is not in acute distress. Appearance: Normal appearance. HENT: Head: Normocephalic. Right Ear: Tympanic membrane normal. Left Ear: Tympanic membrane normal. Eyes: Extraocular Movements: Extraocular movements intact. Pupils: Pupils are equal, round, and reactive to light. Cardiovascular: Rate and Rhythm: Normal rate and regular rhythm. Heart sounds: No murmur heard. No friction rub. No gallop. Pulmonary: Effort: Pulmonary effort is normal. Breath sounds: Normal breath sounds. No wheezing, rhonchi or rales. Abdominal: General: Bowel sounds are normal. There is no distension. Palpations: Abdomen is soft. Tenderness: There is no abdominal tenderness. There is no guarding or rebound. Musculoskeletal: Cervical back: Neck supple. Right lower leg: No edema. Left lower leg: No edema. Neurological: Mental Status: She is alert. Assessment/Plan Problem List Items Addressed This Visit URI, acute Illness likely due to a virus and [...] if no better or worse call for re-evaluation. Relevant Medications predniSONE (Deltasone) 50 MG tablet albuterol HFA 90 mcg/act inhaler Class 3 severe obesity due to excess calories with serious comorbidity and body mass index (BMI) of 45.0 to 49.9 in adult Patient overweight and difficult time losing weight. [...] reviewed. Continue medications as prescribed. Refer to yarn wrapper. Relevant Medications phentermine (Adipex-P) 37.5 MG tablet Primary hypertension (CMS/HCC) - Primary BP controlled and monitor PRN. Other Visit Diagnoses Encounter for weight management Relevant Medications phentermine (Adipex-P) 37.5 MG tablet documented in this encounter [facility] 06-22-2024 History of Present illness Narrative Spiritual Services Interventions [facility] Pool/NONE 06/22/2024 Sr Marcie Kenney 39 y.o. year old female Encounter Summary Encounter Overview/Reason: Initial Encounter Service Provided For: Patient Referral/Consult From: [employer]: Unknown Last Encounter : 06/22/24 Complexity of Encounter: Low Begin Time: 904 End Time : 909 Total Time Calculated: 5 min Spiritual/Emotional needs Type: Spiritual Support Assessment/Intervention/Outcome Assessment: Calm Intervention: Prayer (assurance of)/Springer Outcome: Expressed Gratitude [facility] Preadmission Testing Name: Alesha Kenney : 1985 Patient (home) Procedure: colonoscopy Date of Procedure: 06/22 Surgeon: Gordon Rangel MD Ht: 170.2 cm (5' 7 ) Wt: Weight - Scale: (!) 139.7 kg (308 lb) Wt method: Stated Allergies: Allergies Allergen Reactions Vancomycin Anaphylaxis Lips swell cant breath Codeine Other Reaction(s): Unknown Penicillins Other Reaction(s): SOB/ITCHING Sulfamethoxazole-Trimethoprim Tramadol Vicodin [Hydrocodone-Acetaminophen] There were no vitals filed for this visit. No LMP recorded (within months). (Menstrual status: Irregular periods). Do you take blood thinners? [] Yes [x] No Instructed to stop blood thinners prior to procedure? [] Yes [] No [x] N/A Do you have sleep apnea? [] Yes [x] No Do you have acid reflux ? [] Yes [x] No Do you have hiatal hernia? [] Yes [x] No Do you ever experience motion sickness? [] Yes [x] No Have you had a respiratory infection or sore throat in last 4 weeks before surgery? [] Yes [x] No Do you have poorly controlled asthma or COPD? Difficulty with intubation in past? [] Yes [x] No [] Yes [x] No Do you have a history of angina in the last month or symptomatic arrhythmia? [] Yes [x] No Do you have significant central nervous system disease? [] Yes [x] No Have you had an EKG, labs, or chest xray in last 12 months? If yes provide copies to anesthesia [] Yes [] No [] Lab [] EKG [] CXR Have you had a stress test? [] Yes [x] No When/where: Was it normal? [] Yes [] No Do you or your family have a history of Malignant Hyperthermia? [] Yes [x] No Do you smoke? [x] Yes [] No Please refrain from smoking on the day of surgery. Patient instructed on: [x] NPO Status [] Meds to Take [] Hold GLP-1 Receptor Agonist [x] Ride Home [x] No Jewelry/Contact Lenses/Nail Hungarian [x] Prep/Lax/Clear Liquids [] Chlorhexidene DOS Patient Needs [x] HCG [] Blood Sugar [] PT/INR [] T&S Do you have any metal allergies? [] Yes [x] No If yes, to what metals: Patient instructed on the pre-operative, intra-operative, and post-operative process? Yes Medication instructions reviewed with patient? Yes documented in this encounter [facility] 06-22-2024 Hospital Discharge instructions Darya Moss RN - 06/22/2024 10:10 AM EDT Discharge Instructions for Colonoscopy Do not drive or operate machinery for 24 hours. Do not make important personal or business decisions for 24 hours. Do not drink alcoholic beverages for 24 hours. Do not smoke tobacco products for 24 hours. It is normal to have a feeling of fullness or mild cramping in your abdomen afterwards due to air that is put into your bowel during the procedure. Mild activities such as walking will help you pass the air. You may resume your regular diet. Results from a biopsy may take up to 2 weeks to return from pathology. Make a follow-up appointment with PCP to be seen in 2 weeks. SEEK MEDICAL ATTENTION IF: Chest Pain or trouble breathing. Persistent and significant bleeding from your rectum, such as soaking through clothing and/or feeling dizzy and sweating. A fever above 101F or if you have chills. If symptoms are severe call 911 or go to the nearest Emergency Room. documented in this encounter [facility] 06-01-2024 History of Present illness Narrative Patient: Alesha Kenney : 1985 PCP: Navarro Oviedo MD SUBJECTIVE Pt presents today for follow up of skin lesion/neoplasm of unknown origin to the right foot Pt states that previous treatment of acid tx with some improvement Pt rates pain the pain on a 1-10 scale an intensity of 5 Pt presents today for followup. Allergies: Allergies [...] abuse Tobacco user Medications: Current Outpatient Medications: Buprenorphine HCl-Naloxone HCl (Suboxone) 8-2 MG SL film, Place 2 Film under the tongue Daily, Disp: , Rfl: cholecalciferol (Vitamin D-3) 20 MCG (800 UNIT) tablet, Take 1 tablet (20 mcg) by mouth Daily, Disp: 90 tablet, Rfl: 0 doxycycline (Vibra-Tabs) 100 MG tablet, Take 100 mg by mouth in the morning and 100 mg before bedtime. (Patient not taking: Reported on 03/23/2024), Disp: , Rfl: etonogestrel-eluting (Nexplanon) 68 mg contraceptive implant, 1 each by Implant route 1 (one) time, Disp: , Rfl: fluticasone (Flonase) 50 MCG/ACT nasal [...] affected nostril(s) if needed, Disp: , Rfl: Social History: Social History Socioeconomic History Marital [...] Insecurity: No Food Insecurity (09/22/2022) [facility] Within the past 12 months [...] 2nd metatarsal region measuring 0.1 cm x 0.1 cm. VASC: Palpable pedal pulsed b/l with [...] Verruca plantaris 2. Foot pain, right PLAN Discussed condition in detail with patient today and discussed conservative treatments and possible excisional biopsy of lesion in the future for pathological diagnosis of specimen. Patient may take [id number] NSAID p.r.n. for pain Application of salinocaine acid medication to lesion/lesions located at right foot Informed pt of risks and benefits of procedure including high reoccurence rate, infection, pain and consent given. Application of DSD post procedure. Rufino Arias DPM documented in this encounter [facility] 03-30-2024 History of Present illness Narrative Patient: Alesha Kenney : 1985 PCP: Navarro Oviedo MD SUBJECTIVE This is a 39 y.o. female that presents today for a chief complaint of painful lesion to her right foot that is been present for the past few years. Patient states pain up to an 8/10 has tried different treatments [id number] treatments with negative improvement and states sharp and painful ambulation in shoe gear Patient also presents today with complaints of redness to her right thumb region and that she had had a fissure at 1 point in time over the past 2 weeks and seen primary care provider who provided clindamycin antibiotic as well as recommendation for soaking. Patient denies n/f/v/c. Patient states minimal improvement at the current point in time and it has been applying mupirocin ointment and presents today with complaints of redness to her thumb and still pain to the thumb area Allergies: Allergies Allergen Reactions Vancomycin Anaphylaxis Lips swell cant breath Bactrim Ds [Sulfamethoxazole-Trimethoprim] Codeine Other Reaction(s): Unknown Hydrocodone-Acetaminophen Unknown Penicillin G Other Reaction(s): SOB/ITCHING Penicillins Tramadol Unknown Past Medical History: Past Medical History: Diagnosis Date Allergies Endocarditis Endometriosis Gestational diabetes Hepatitis C (CMS/HCC) History of endocarditis in adulthood Obesity, morbid (CMS/HCC) Opioid abuse (CMS/HCC) Substance abuse (CMS/HCC) Tobacco user Medications: Current Outpatient Medications: Buprenorphine HCl-Naloxone HCl (Suboxone) 8-2 MG SL film, Place 2 Film under the tongue Daily, Disp: , Rfl: cholecalciferol (Vitamin D-3) 20 MCG (800 UNIT) tablet, Take 1 tablet (20 mcg) by mouth Daily, Disp: 90 tablet, Rfl: 0 doxycycline (Vibra-Tabs) 100 MG tablet, Take 100 mg by mouth in the morning and 100 mg before bedtime. (Patient not taking: Reported on 03/23/2024), Disp: , Rfl: etonogestrel-eluting (Nexplanon) 68 mg contraceptive implant, 1 each by Implant route 1 (one) time, Disp: , Rfl: fluticasone (Flonase) 50 MCG/ACT nasal [...] affected nostril(s) if needed, Disp: , Rfl: Social History: Social History Socioeconomic History Marital [...] Insecurity: No Food Insecurity (09/22/2022) Received [facility] Hunger Screening Within the past 12 months [...] file Housing Stability: Not on file ROS: Gastrointestinal: denies abdominal pain, ulcers, or changes in appetite or bowel habits Musculoskeletal: denies arthritis, denies loss of strength, pain to hip, knees, back Cardiovascular: denies CP, palpitations, irregular rhythms. Positive history of endocarditis OBJECTIVE LE EXAM: DERM: Positive hair growth to b/l feet with good skin turgor noted. Negative openings in skin. Nummular lesion measuring at the right sub 2nd metatarsal region measuring 0.3 cm x 0.2 cm. Nail fold of the right thumb region has area of erythema surrounding the region with negative drainage and dry scab like tissue present with negative red streaking VASC: Palpable pedal pulsed b/l with warm to cool tibia to toes b/l NEURO: Gross sensation intact digits 1-10 and b/l feet ORTHO: +5/5 DF/PF/IN/EV right, +5/5 DF/PF/IN/EV left. 20 degrees inversion and 10 degrees eversion STJ b/l. Ankle ROM less than 10 degrees b/l. Positive pain on palpation to right foot lesion Positive palpation to right thumb XRAY: US: ASSESSMENT 1. Neoplasm of uncertain behavior of skin 2. Verruca plantaris 3. Foot pain, right 4. Cellulitis of right thumb PLAN Discussed condition in detail with patient today and discussed conservative treatments and possible excisional biopsy of lesion in the future for pathological diagnosis of specimen. Patient may take [id number] NSAID p.r.n. for pain Application of salinocaine acid medication to lesion/lesions located at right foot Informed pt of risks and benefits of procedure including high reoccurence rate, infection, pain and consent given. Application of DSD post procedure. Patient to continue with recommendations of primary care provider however did provide clindamycin antibiotics today as well as Betadine to apply daily with dry sterile dressing and follow up with PCP Rufino Arias DPM documented in this encounter [facility] 03-13-2024 History of Present illness Narrative Associated Problem(s): Wellness examination I [...] D 25 hydroxy documented in this encounter [facility] 03-13-2024 Instructions Sonya Villa NP - 03/13/2024 2:30 PM EST Continue and finish antibiotics as directed. Continue using Mupirocin ointment. Continue checking BP once daily in the afternoon. Call my office in 2 weeks with blood pressure readings. Have blood work completed. This is NON-fasting! documented in this encounter [facility] 03-09-2024 History of Present illness Narrative Associated Problem(s): Primary hypertension (CMS/HCC) [...] Comprehensive metabolic panel documented in this encounter [facility] 03-09-2024 Instructions Sonya Villa [...] your next visit. documented in this encounter [facility] 11-23-2023 History of Present illness Narrative Associated Problem(s): Opioid use disorder in remission Follows with [facility]. Was seeing Hope Jimenez. Currently takes Suboxone [...] y.o. female who presents for Follow-up (From [facility] ). HPI 10 months post Is not [...] day. Consider tracking your food intake on [employer] or [employer] Water: Increase water intake; GOAL [...] 1 % cream Opioid abuse, in remission ([facility]) documented in this encounter [facility] 11-23-2023 Instructions Sonya Villa [...] black coffee ok. documented in this encounter [facility] 10-11-2023 History of Present illness Narrative Associated Problem(s): Encounter for weight [...] to quit smoking. Pt meets qualifications of [facility] 4730-12-19 for weight loss. BMI>30 or [...] management - Primary Pt meets qualifications of [facility] 4730-12-19 for weight loss. BMI>30 or [...] day. Consider tracking your food intake on [employer] or [employer] Water: Increase water intake; GOAL [...] sleep per night. documented in this encounter [facility] 10-11-2023 Instructions Sonya Villa NP - [...] Call about Acupuncture!!! documented in this encounter [facility] Healthcare Evaluation note Diagnosis Blood pressure elevated without history of HTN- Primary Morbid obesity (CMS/HCC) Morbid obesity Encounter for wellness examination in adult Tinea pedis of both feet Opioid abuse, in remission ([facility]) Opioid abuse, in remission documented [...] of both feet Opioid abuse, in remission ([facility]/HCC) Opioid abuse, in remission Acute non-recurrent frontal [...] Morbid obesity (CMS/HCC) Morbid obesity Morbid obesity ([facility]/HCC)- Primary Morbid obesity Ingrown fingernail Skin lesion Unspecified disorder of skin and subcutaneous tissue Encounter for weight management- Primary Blood pressure elevated without history of HTN- Primary Morbid obesity (CMS/HCC) Morbid obesity Encounter for wellness examination in adult Tinea pedis of both feet Opioid abuse, in remission ([facility]) Opioid abuse, in remission Acute paronychia of right thumb- Primary Primary hypertension (CMS/HCC) Unspecified essential hypertension Wellness examination- Primary Fatigue, unspecified type Anemia, unspecified type Acute paronychia of right thumb documented [facility] [...] obesity (CMS/HCC)- Primary Morbid obesity Morbid obesity ([facility]/HCC) Morbid obesity Morbid obesity ([facility])- Primary Morbid obesity Ingrown fingernail Skin lesion Unspecified disorder of skin and subcutaneous tissue Encounter for weight management- Primary Blood pressure elevated without history of HTN- Primary Morbid obesity ([facility]/HCC) Morbid obesity Encounter for wellness examination in adult Tinea pedis of both feet Opioid abuse, in remission ([facility]) Opioid abuse, in remission Acute paronychia of right thumb- Primary Primary hypertension ([facility]) Unspecified essential hypertension Wellness examination- Primary Fatigue, unspecified type Anemia, unspecified type Acute paronychia of right thumb Vitamin D deficiency- Primary Anemia due to folic acid deficiency, unspecified deficiency type documented [facility] [...] and other nonspecific skin eruption Morbid obesity ([facility]) Morbid obesity Morbid obesity ([facility])- Primary Morbid obesity Morbid obesity ([facility]) Morbid obesity Morbid obesity ([facility])- Primary Morbid obesity Ingrown fingernail Skin lesion Unspecified disorder of skin and subcutaneous tissue Encounter for weight management- Primary Blood pressure elevated without history of HTN- Primary Morbid obesity ([facility]) Morbid obesity Encounter for wellness examination in adult Tinea pedis of both feet Opioid abuse, in remission ([facility]) Opioid abuse, in remission Acute paronychia of right thumb- Primary Primary hypertension ([facility]) Unspecified essential hypertension Wellness examination- Primary Fatigue, unspecified type Anemia, unspecified type Acute paronychia of right thumb Cellulitis of right thumb- Primary Neoplasm of uncertain behavior of skin Verruca plantaris Plantar wart Foot pain, right Pain in soft tissues of limb documented [facility] [...] of both feet Opioid abuse, in remission Acute paronychia of right thumb- Primary Primary hypertension (CMS/HCC) Unspecified essential hypertension Wellness examination- Primary Fatigue, unspecified type Anemia, unspecified type Acute paronychia of right thumb Verruca plantaris- Primary Plantar wart Foot pain, right Pain in soft tissues of limb documented in this encounter [facility] HealthcareEvaluation note* Diagnosis Rectal bleeding- Primary Hemorrhage of rectum and anus documented in this encounter [facility]* Diagnosis URTI (acute upper respiratory infection)- Primary Acute upper respiratory infections of unspecified site Wheezing-associated respiratory infection Shoulder blade pain- Primary Pain in joint, shoulder region Other chest pain Anemia, unspecified type Morbid obesity (CMS/HCC)- Primary Morbid obesity Morbid obesity (CMS/HCC) Morbid obesity Morbid obesity (CMS/HCC)- Primary Morbid obesity Ingrown fingernail Skin lesion Unspecified disorder of skin and subcutaneous tissue Blood pressure elevated without history of HTN- Primary Morbid obesity (CMS/HCC) Morbid obesity Encounter for wellness examination in adult Tinea pedis of both feet Opioid abuse, in remission Acute paronychia of right thumb- Primary Primary hypertension (CMS/HCC) Unspecified essential hypertension Wellness examination- Primary Fatigue, unspecified type Anemia, unspecified type Acute paronychia of right thumb Primary hypertension (CMS/HCC)- Primary Unspecified essential hypertension URI, acute Acute upper respiratory infections of unspecified site Class 3 severe obesity due to excess calories with serious comorbidity and body mass index (BMI) of 45.0 to 49.9 in adult Encounter for weight management Opioid dependence, uncomplicated (CMS/HCC) Verruca plantaris- Primary Plantar wart Foot pain, right Pain in soft tissues of limb documented in this encounter [facility] HealthcareEvaluation note* Diagnosis URTI (acute upper respiratory infection)- Primary Acute upper respiratory infections of unspecified site Wheezing-associated respiratory infection Shoulder blade pain- Primary Pain in joint, shoulder region Other chest pain Anemia, unspecified type Morbid obesity (CMS/HCC)- Primary Morbid obesity Morbid obesity (CMS/HCC) Morbid obesity Morbid obesity (CMS/HCC)- Primary Morbid obesity Ingrown fingernail Skin lesion Unspecified disorder of skin and subcutaneous tissue Blood pressure elevated without history of HTN- Primary Morbid obesity (CMS/HCC) Morbid obesity Encounter for wellness examination in adult Tinea pedis of both feet Opioid abuse, in remission Acute paronychia of right thumb- Primary Primary hypertension (CMS/HCC) Unspecified essential hypertension Wellness examination- Primary Fatigue, unspecified type Anemia, unspecified type Acute paronychia of right thumb Primary hypertension (CMS/HCC)- Primary Unspecified essential hypertension URI, acute Acute upper respiratory infections of unspecified site Class 3 severe obesity due to excess calories with serious comorbidity and body mass index (BMI) of 45.0 to 49.9 in adult Encounter for weight management Opioid dependence, uncomplicated (CMS/HCC) Verruca plantaris- Primary Plantar wart Foot pain, right Pain in soft tissues of limb [facility]* Rufino Arias, DPM - 05/18/2024 4:40 PM EDT Patient: Alesha Kenney : 1985 PCP: Navarro Oviedo MD SUBJECTIVE Pt presents today for follow up of skin lesion/neoplasm of unknown origin to the right foot Pt states that previous treatment of acid tx with some improvement Pt rates pain the pain on a 1-10 scale an intensity of 5 Pt presents today for followup. Allergies: Allergies Allergen Reactions Vancomycin Anaphylaxis Lips swell cant breath Bactrim Ds [Sulfamethoxazole-Trimethoprim] Codeine Other Reaction(s): Unknown Hydrocodone-Acetaminophen Unknown Penicillin G Other Reaction(s): SOB/ITCHING Penicillins Tramadol Unknown Past Medical History: Past Medical History: Diagnosis Date Allergies Endocarditis Endometriosis Gestational diabetes Hepatitis C (CMS/HCC) History of endocarditis in adulthood Obesity, morbid (CMS/HCC) Opioid abuse (CMS/HCC) Substance abuse (CMS/HCC) Tobacco user Medications: Current Outpatient Medications: Buprenorphine HCl-Naloxone HCl (Suboxone) 8-2 MG SL film, Place 2 Film under the tongue Daily, Disp: , Rfl: cholecalciferol (Vitamin D-3) 20 MCG (800 UNIT) tablet, Take 1 tablet (20 mcg) by mouth Daily, Disp: 90 tablet, Rfl: 0 doxycycline (Vibra-Tabs) 100 MG tablet, Take 100 mg by mouth in the morning and 100 mg before bedtime. (Patient not taking: Reported on 03/23/2024), Disp: , Rfl: etonogestrel-eluting (Nexplanon) 68 mg contraceptive implant, 1 [...] affected nostril(s) if needed, Disp: , Rfl: Social History: Social History Socioeconomic History Marital [...] Insecurity: No Food Insecurity (09/22/2022) Received from [facility] Hunger Screening Within the past 12 months [...] the right sub 2nd metatarsal region measuring 0.2 cm x 0.1 cm. VASC: Palpable pedal pulsed b/l with [...] Verruca plantaris 2. Foot pain, right PLAN Discussed condition in detail with patient today and discussed conservative treatments and possibleexcisional biopsy of lesion in the future for pathological diagnosis of specimen. Patient may take [id number] NSAID p.r.n. for pain Application of salinocaine acid medication to lesion/lesions located at right foot Informed pt of risks and benefits of procedure including high reoccurence rate, infection, pain andconsent given. Application of DSD post procedure. [facility] DPM [facility] Auth/Cert Specialty Diagnoses / Procedures Referred By Contac t Referred To Contact Diagnoses Rectal bleeding Procedures CT COLON CA SCRN NOT HI RSK IND COLORECTAL CANCER SCREENING, NOT HIGH RISK Gordon Rangel MD [address] [place] [address] Phone: tel: [facility] [address] [place] [address] Referral ID Status Reason Start Date Expiration Date Visits Re quested Visits Authorized [id number] [facility] Summary Purpose Family History No Family History Records FoundNo Family History Records FoundNo Family History Records FoundNo Family History Records FoundNo Family History Records FoundNo Family History Records FoundNo Family History Records FoundNo Family History Records FoundNo Family History Records Found Advance Directives No Advanced Directives Records FoundDocuments on File Type Date Recorded Patient Executive Compensation Analyst Expl anation ACP-Advance Directive 01/05/2018 12:59 PM Date Activated Date Inactivated Comments 12/28/2017 1:44 AM 01/04/2018 3:56 PM Date Activated Date Inactivated Comments 12/27/2017 6:10 PM 12/28/2017 1:44 AM Date Activated Date Inactivated Comments 12/26/2017 12:26 AM 12/27/2017 6:10 PM Date Activated Date Inactivated Comments 04/29/2016 2:38 AM 04/30/2016 10:54 PM Documents on File Type Date Recorded Patient Executive Compensation Analyst Expl anation ACP-Advance Directive 01/05/2018 12:59 PM Date Activated Date Inactivated Comments 12/28/2017 1:44 AM 01/04/2018 3:56 PM Date Activated Date Inactivated Comments 12/27/2017 6:10 PM 12/28/2017 1:44 AM Date Activated Date Inactivated Comments 12/26/2017 12:26 AM 12/27/2017 6:10 PM Date Activated Date Inactivated Comments 04/29/2016 2:38 AM 04/30/2016 10:54 PM Additional Source Comments INFORMATION SOURCE (unrecogn ized section and content) DATE CREATED AUTHOR 02/04/2018 [facility] DATE CREATED AUTHOR AUTHOR'S ORGANIZ ATION 02/19/2018 [facility] DATE CREATED AUTHOR AUTHOR'S ORGANIZ ATION 05/02/[address] [facility] Healthcare DATE CREATED AUTHOR AUTHOR'S ORGANIZ ATION 03/15/2021 [facility] DATE CREATED AUTHOR AUTHOR'S ORGANIZ ATION 06/29/2022 [facility] DATE CREATED AUTHOR AUTHOR'S ORGANIZ ATION 07/25/2022 [facility] DATE CREATED AUTHOR AUTHOR'S ORGANIZ ATION 05/22/2024 [facility] DATE CREATED AUTHOR AUTHOR'S ORGANIZ ATION 06/24/2024 [facility] DATE CREATED AUTHOR AUTHOR'S ORGANIZ ATION 07/15/2024 [facility] Care Teams (unrecognized sec tion and content) Auto Inspector Relationship Specialty Start Date End Date Navarro Oviedo MD [address] [place] [phone] PCP - General Family Medicine 09/15/23 Sonya Villa NP [address] [place] [address] Nurse Practitioner Family Medicine 09/15/23 Auto Inspector Relationship Specialty Start Date End Date Navarro Oviedo MD [address] [place] [phone] PCP - General Family Medicine 09/15/23 Sonya Villa NP [address] [place] [address] Nurse Practitioner Family Medicine 09/15/23 Auto Inspector Relationship Specialty Start Date End Date Navarro Oviedo MD [address] [place] [phone] PCP - General Family Medicine 09/15/23 Sonya Villa NP [address] [place] [address] Nurse Practitioner Family Medicine 09/15/23 Auto Inspector Relationship Specialty Start Date End Date Navarro Oviedo MD [address] [place] [phone] PCP - General Family Medicine 09/15/23 Sonya Villa NP [address] [place] [address] Nurse Practitioner Family Medicine 09/15/23 Auto Inspector Relationship Specialty Start Date End Date Navarro Oviedo MD [address] [place] [phone] PCP - General Family Medicine 09/15/23 Sonya Villa NP [address] [place] [address] Nurse Practitioner Family Medicine 09/15/23 Auto Inspector Relationship Specialty Start Date End Date Navarro Oviedo MD [address] [place] [phone] PCP - General Family Medicine 09/15/23 Sonya Villa NP [address] [place] [address] Nurse Practitioner Family Medicine 09/15/23 Auto Inspector Relationship Specialty Start Date End Date Navarro Oviedo MD [address] [place] [phone] PCP - General Family Medicine 09/15/23 Sonya Villa NP [address] [place] [address] Nurse Practitioner Family Medicine 09/15/23 Auto Inspector Relationship Specialty Start Date End Date Navarro Oviedo MD [address] [place] [phone] PCP - General Family Medicine 09/15/23 Sonya Villa NP [address] [place] [address] Nurse Practitioner Family Medicine 09/15/23 Auto Inspector Relationship Specialty Start Date End Date Navarro Oviedo MD [address] [place] [phone] PCP - General Family Medicine 09/15/23 Sonya Villa NP [address] [place] [address] Nurse Practitioner Family Medicine 09/15/23 Auto Inspector Relationship Specialty Start Date End Date Navarro Oviedo MD [address] [place] [phone] PCP - General Family Medicine 09/15/23 Sonya Villa NP [address] [place] [address] Nurse Practitioner Family Medicine 09/15/23 Auto Inspector Relationship Specialty Start Date End Date Navarro Oviedo MD [address] [place] [phone] PCP - General Family Medicine 09/15/23 Sonya Villa NP [address] [place] [address] Nurse Practitioner Family Medicine 09/15/23 Auto Inspector Relationship Specialty Start Date End Date Navarro Oviedo MD [address] [place] [phone] PCP - General Family Medicine 09/15/23 Sonya Villa NP [address] [place] [address] Nurse Practitioner Family Medicine 09/15/23 Auto Inspector Relationship Specialty Start Date End Date Navarro Oviedo MD [address] [place] [phone] PCP - General Family Medicine 09/15/23 Sonya Villa NP [address] [place] [address] Nurse Practitioner Family Medicine 09/15/23 Auto Inspector Relationship Specialty Start Date End Date Navarro Oviedo MD [address] [place] [phone] PCP - General Family Medicine 09/15/23 Sonya Villa NP [address] [place] [address] Nurse Practitioner Family Medicine 09/15/23 Auto Inspector Relationship Specialty Start Date End Date Navarro Oviedo MD [address] [place] [phone] PCP - General Family Medicine 09/15/23 Sonya Villa NP [address] [place] [address] Nurse Practitioner Family Medicine 09/15/23 Auto Inspector Relationship Specialty Start Date End Date Navarro Oviedo MD [address] [place] [address] PCP - General Family Medicine 09/15/23 Sonya Villa NP [address] [place] [address] Nurse Practitioner Family Medicine 09/15/23 Auto Inspector Relationship Specialty Start Date End Date Sonya Villa APRN - CONTRACTS REPRESENTATIVE [address] [place] [address] PCP - General Nurse Practitioner 05/11/24 Auto Inspector Relationship Specialty Start Date End Date Sonya Villa APRN - CONTRACTS REPRESENTATIVE [address] [place] [address] PCP - General Nurse Practitioner 05/11/24 Auto Inspector Relationship Specialty Start Date End Date Navarro Oviedo MD [address] [place] [phone] PCP - General Family Medicine 09/15/23 Sonya Villa NP [address] [place] [address] Nurse Practitioner Family Medicine 09/15/23 Auto Inspector Relationship Specialty Start Date End Date Navarro Oviedo MD [address] [place] [address] PCP - General Family Medicine 09/15/23 Sonya Villa NP [address] [place] [phone] Nurse Practitioner Family Medicine 09/15/23 Auto Inspector Relationship Specialty Start Date End Date Navarro Oviedo MD [address] [place] [phone] PCP - General Family Medicine 09/15/23 Sonya Villa NP [address] [place] [phone] Nurse Practitioner Family Medicine 09/15/23 Reason for Visit (unrecogniz ed section and content) Reason Comments Follow-up From [facility] Reason Comments Obesity Reason Comments cracked skin Right thumb, cracked skin, sore to touch Reason Comments wellness Reason Comments Foot Skin Problem Possible warts Reason Comments Follow-up Rt lesion check Reason Comments Follow-up Started this morning with [facility]Talk about weight loss Reason Comments Follow-up Lesion check Continuous Active and Recently Administ ered Medications (unrecognized section and content) Medication Order 06/20/2024 06/21/2024 06/22/2024 lactated ringers infusion IntraVENous, at 100 mL/hr, CONTINUOUS, Starting on Tanya 06/22/24 at 0845, Pre-op (day of surgery) 0848 (New Bag - Prov ider: Alis Perera RN)0913 (NoRateChange - Provider: SHILPA Condon CRNA)0930 (Stopped - Provider: SHILPA Condon CRNA) FOR RECORDS PERTAINING TO PATIENTS WHO ARE [...] BE BASED ON THE PRIMARY CLINICAL RECORDS. [facility]. provides no warranty or guarantee of the accuracy or completeness of information in this document.
--- OUTSIDE RECORDS SUMMARY | 2024-07-16 19:30 | XMS_ITS | Encounter Summary ---
Author Organization [facility] Address [address] [facility] [place] [address] Care Team Providers Care Partition Assembly Machine Operator Name Role Phone Shaikh LINDA Garland Primary Care Provider [phone] Shaikh LINDA Garland Primary Care Provider [phone] Navarro Haider MD Primary Care Provider [phone] Vida Villa PAYROLL ASSISTANT Unavailable [phone] Encounter Details Date Type Department Care Team (Late st Contact Info) Description 07/28/2022 Abstract [facility] [address] [place] [address] Pankaj Yanez, [address] [facility] [place] [address] Social History Tobacco Use Types Packs/Day [...] Office Visit [facility] [address] [facility] [address] [place] [phone] Rufino Cm DPM [address] [address] 08/17/2024 2:45 PM EDT Office Visit [facility] [address] [place] [phone] Navarro Haider MD [address] [place] [phone] documented as of this encounter Visit Diagnoses Not on filedocumented in this encounter Care Teams Partition Assembly Machine Operator Relationship Specialty Start Date End Date Shaikh Garland MD PCP - General Internal Medicine 07/28/22 04/18/23 Shaikh Garland MD [address] [place] [phone] PCP - General Internal Medicine 04/19/23 09/14/23 Navarro Haider MD [address] [place] [address] PCP - General Family Medicine 09/15/23 Vida Villa NP [address] [place] [phone] Nurse Practitioner Family Medicine 09/15/23 documented as of this encounter
--- OUTSIDE RECORDS SUMMARY | 2024-07-16 19:30 | XMS_ITS | Encounter Summary ---
Author Organization [facility] Address [address] [place] [address] Care Team Providers Care Staff Physician Name Role Phone Shaikh LINDA Garland Primary Care Provider [phone] Shaikh LINDA Garland Primary Care Provider [phone] Navarro Haider MD Primary Care Provider [phone] Vida Villa CAREER DEVELOPMENT CONSULTANT Unavailable [phone] Encounter Details Date Type Department Care Team (Late st Contact Info) Description 09/08/2022 Abstract [facility] [address] [facility] [place] [address] Nadira Hudson PA [address] [facility] [place] [address] Social History Tobacco Use Types Packs/Day [...] EDT Office Visit [facility] [address] [facility] [address] [place] [phone] Rufino Cm DPM [address] [place] [address] 08/17/2024 2:45 PM EDT Office Visit [facility] [address] [place] [phone] Navarro Haider MD [address] [place] [phone] documented as of this encounter Visit Diagnoses Not on filedocumented in this encounter Care Teams Staff Physician Relationship Specialty Start Date End Date Shaikh Garland MD PCP - General Internal Medicine 07/28/22 04/18/23 Shaikh Garland MD [address] [place] [phone] PCP - General Internal Medicine 04/19/23 09/14/23 Navarro Haider MD [address] [place] [phone] PCP - General Family Medicine 09/15/23 Vida Villa NP [address] [place] [address] Nurse Practitioner Family Medicine 09/15/23 documented as of this encounter
--- OUTSIDE RECORDS SUMMARY | 2024-07-16 19:30 | XMS_ITS | Encounter Summary ---
Author Organization [facility] Address [address] [place] [address] Care Team Providers Care Paralegal Specialist Name Role Phone Navarro Haider MD Primary Care Provider [phone] DEPARTMENT Unavailable [phone] Reason for Visit * Reason Onset Date Comments Med Refill 07/13/2024 Encounter Details Date Type Department Care Team (Late st Contact Info) Description 07/13/2024 [facility] [address] [place] [address] Navarro Haider MD [address] [place] [phone] URI, acute Social History Tobacco Use Types Packs/Day Years [...] encounter Miscellaneous Notes * Telephone Encounter - MELANIA SINGH - 07/13/2024 2:13 PM EDT MEDICATION SENT TO [facility] documented in this encounter Plan of Treatment Upcoming Encounters Date Type Department Care Team (Late st Contact Info) Description 07/27/2024 4:00 PM EDT Office Visit [facility] [address] [facility] 120 [place] [address] Rufino Cm DPM [address] [facility] [address] [place] [address] 08/17/2024 2:45 PM EDT Office Visit [facility] [address] [place] [phone] Navarro Haider MD [address] [place] [address] documented as of this encounter Visit Diagnoses Diagnosis URI, acute Acute upper respiratory infections of unspecified site documented in this encounter Care Teams Paralegal Specialist Relationship Specialty Start Date End Date Navarro Haider MD [address] [place] [phone] PCP - General Family Medicine 09/15/23 Vida Villa NP [address] [place] [phone] Nurse Practitioner Family Medicine 09/15/23 documented as of this encounter
--- NOTE | 2024-07-16 19:56 | XR_ITS ---
[place] 2006111 Patient Name: RYAN HALL MRN: [id number] date: 1985 Sex: F Assigned Patient Location: ER Current Patient Location: ER Accession/Order Number: [id number] Exam Date: 07/16/2024 20:17 Report Date: 07/16/2024 20:18 At the request of: AWA BUSBY Procedure: XR chest 1V Plain film chest Single view HISTORY: Shortness of breath COMPARISON: CT chest 04/20/2023 FINDINGS: SUPPORT DEVICES: None POSTSURGICAL CHANGES: None HEART: Within normal limits PULMONARY EVELIN: Within normal limits MEDIASTINUM: Unremarkable LUNGS AND PLEURA: No acute lung process, pleural effusion or pneumothorax identified. Linear basilar atelectasis/scarring BONY STRUCTURES: Intact ADDITIONAL FINDINGS None XR/XR chest 1V IMPRESSION: No acute process. Impression dictated by: Gordon Murdock M.D. 07/16/2024 8:18 PM Dictation Location: [place] [address] Electronically authenticated by: [id number] Y Date: 07/16/2024 20:18
--- NOTE | 2024-07-16 19:56 | ECG_ITS ---
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 Measurements Intervals Brandon Rate: 85 P: 67 AK: 144 QRS: 54 QRSD: 88 T: 35 QT: 370 QTc: 412 Interpretive Statements 1100 Sinus rhythm 9110 normal ECG Compared to ECG 04/20/2023 20:30:19 No significant changes Electronically Signed On 07-17-2024 0:01:22 EDT by ROOPA VALDEZ M.D.
--- NOTE | 2024-07-16 19:58 | ED_ITS ---
HPI - SOB/Dyspnea General Stated Complaint: sob/edema Time Seen by Provider: 07/16/24 19:31 Source: patient and family () Mode of arrival: walk-in Limitations: no limitations History of Present Illness HPI Narrative: 39-year-old female presents to the emergency department with with complaint of rash to her legs and some shortness of breath. Rash started this past Wednesday. Rash is red, circumferential, describes as itching, burning. Also notes rash to the backs of her upper arms, shoulders. She has been on Macrobid for urinary tract infection. Shortness of breath over same time course. Has some concern about heart failure. Did experience some palpitations, but this has resolved. Denies any chest pain, discomfort, heaviness. Denies any fever, chills, changes in soaps, lotions, detergents. Denies any new clothing. Denies any known exposures, working outside. Quality:?as above Severity:?moderate Timing:?as above Context: Normal setting and activity? Modifying factors:?as above Associated symptoms: as above Related Data Home Medications ?Medication ?Instructions ?Recorded ?Confirmed doxylamine succinate 25 mg tablet 25 mg PO .hs 3 01/12/23 (Nighttime Sleep-Aid (doxylamine)) vit no.95-ferrous 1 tab PO DAILY 09/05/22 fumarate 28 mg-folic acid 800 mcg tablet () albuterol sulfate 90 mcg/actuation 2 puff inhalation Q 4H PRN 04/14/23 04/14/23 aerosol inhaler shortness of breath or wheez ing fluticasone propionate 50 2 spray intranasal .morning 04/14/23 04/14/23 mcg/actuation nasal spray,suspension buprenorphine 8 mg-naloxone 2 mg film 03/11/24 sublingual film doxycycline hyclate 100 mg tablet mg 03/11/24 hydrochlorothiazide 12.5 mg tablet mg 03/11/24 losartan 25 mg tablet mg 03/11/24 mupirocin 2 % topical ointment topical 03/11/24 Previous Rx's ?Medication ?Instructions ?Recorded ibuprofen 800 mg tablet 800 mg PO Q8H PRN pain 14 da ys #40 01/13/23 tabs diphenhydramine HCl 25 mg capsule 25 mg PO Q8H PRN april h, itching #14 07/16/24 (Benadryl) caps famotidine 20 mg tablet (Pepcid) 20 mg PO BID #20 tabs 07/16/24 prednisone 20 mg tablet 40 mg (2 x 20 mg) PO DAILY 5 days 07/16/24 #10 tabs Allergies Allergy/AdvReac Type Severity Reaction Status Date / Time Penicillins Allergy Severe Anaphylaxis Verified 04/20/23 18:43 acetaminophen (From Vicodin) AdvReac Mild Vomiting Verified 04/20/23 18:43 hydrocodone (From Vicodin) AdvReac Mild Vomiting Verified 04/20/23 18:43 CODIENE AdvReac Mild Nausea Uncoded 04/20/23 18:43 TRAMADOL AdvReac Mild Vomiting Uncoded 04/20/23 18:43 Review of Systems ROS Narrative CONST: Denies fever, chills HENT: Denies congestion, sore throat EYES: Denies eye redness, visual disturbance RESP: + shortness of breath. Denies cough CV: + palpitations. Denies chest pain GI: Denies abd pain, nausea, vomiting : Denies dysuria, flank pain MS: Denies back pain, myalgias SKIN: + color change, rash NEURO: Denies numbness, weakness PSYCHIATRIC: Denies confusion, agitation PFSH PFSH Social History Smoking status: Current every day smoker What tobacco products do you use: cigarettes Packs per day: 1 Cigarettes per day: 20 Little interest or pleasure in doing things: not at all Feeling down, depressed, or hopeless: not at all Exam Narrative Exam Narrative: Vital signs reviewed Nurses notes noted CONST: Nontoxic, well appearing, well nourished, in no distress.? No diaphoresis.?? HENT: normocephalic, atraumatic, moist mucous membrane, no abnormalities of the nose noted, hearing normal. Throat clear. No edema, tongue swelling. Maintaining own secretions. EYES: normal appearing conjunctiva, no apparent discharge bilat. No swelling, injection NECK: normal appearance CV: normal rate, regular rhythm, no murmur RESP: normal effort, speaking in complete sentences. Lung sounds clear and equal bilat.? No wheezes, rales, rhonchi, stridor GI: normal bowel sounds, soft, no distension, [nontender][+tenderness:][] MS: + Generalized edema to her lower extremities. No tenderness SKIN: + Red, irregularly shaped, somewhat raised rash noted to both lower extremities from ankle to just below her kneecap. She also has maculopapular lesions to her posterior upper arms into the shoulders. Left side more concentrated than the right side. No other rash noted. Lesions all garrick. They are nontender. No vesicular lesions, induration, pustules noted. NEURO: A&Ox 3, no focal findings PSYCH: normal mood, affect Constitutional Vital Signs, click to edit/add: Last Vital Signs Temp 98.6 F 07/16/24 19:27 Pulse 99 H 07/16/24 19:27 Resp 20 07/16/24 19:27 BP 168/108 H 07/16/24 19:27 Pulse Ox 99 07/16/24 19:27 O2 Del Method Room Air 07/16/24 19:27 Course Vital Signs Vital signs: Vital Signs Temperature 98.6 F 07/16/24 19:27 Pulse Rate 99 H 07/16/24 19:27 Respiratory Rate 20 07/16/24 19:27 Blood Pressure 168/108 H 07/16/24 19:27 Pulse Oximetry 99 07/16/24 19:27 Oxygen Delivery Method Room Air 07/16/24 19:27 Temperature 98.6 F 07/16/24 19:27 Pulse Rate 99 H 07/16/24 19:27 Respiratory Rate 20 07/16/24 19:27 Blood Pressure 168/108 H 07/16/24 19:27 Pulse Oximetry 99 07/16/24 19:27 Oxygen Delivery Method Room Air 07/16/24 19:27 MDM - SOB/Dyspnea MDM Narrative Medical decision making narrative: This is a pleasant 39-year-old female who presents to the emergency department for evaluation of rash and shortness of breath. She is a cigarette smoker and has contraceptive implant in her left arm. Does not know of any contact exposures with the rash on her legs. Has been on Macrobid for urinary tract infection. On arrival, afebrile, vitals signs are stable On exam, nontoxic, well appearing patient, in no apparent distress. She has mildly raised, red, blanching rash circumferentially from ankles up to just below her knees. She is itching the rash during ED evaluation. She has maculopapular rash to the posterior aspects of her upper arms and behind her s houlders. Heart regular rate and rhythm. Lung sounds clear and equal bilaterally. She has some generalized edema to her lower extremities that is nonpitting EKG reveals no acute or concerning changes IV access established, blood work was drawn and sent to the lab. Labs reveal no leukocytosis, anemia, thrombocytopenia, electrolyte imbalance, renal impairment. Glucose 137. LFTs, magnesium unremarkable. test was negative. D-dimer elevated 1.38 BNP was 192. Chest x-ray imaging, per radiologist reveals no acute findings. Favor nonspecific dermatitis, shortness of breath And considerations made for contact dermatitis, though patient has no known. Consider Macrobid, but rash has not been generalized, localized to lower legs and upper arms. History and Record Review Discussion with independent historian: Additional records reviewed: Prior ED visit from 03/11/2024, otherwise no records. Independent interpretation imaging: Chest x-ray: No infiltrate edema, cardiomegaly, or other acute changes Additional Tests and Interventions ECG see below Disposition/plan TBD. Patient discussed with Dr. Escamilla, ED attending PLEASE NOTE: Portions of the medical record may have been produced using electronic application processor and may contain errors with respect to translation of words which may not have been identified prior to finalization of the chart. Medical Records Attestation: I reviewed the patient's medical records. Lab Data Attestation: I reviewed the patient's lab results. Labs: Lab Results 07/16/24 Range/Units 20:40 WBC 7.0 (4.0-11.0) 10^3/uL RBC 4.37 (4.20-5.40) 10^6/uL Hgb 13.3 (12.0-16.0) g/dL Hct 39.4 (36.0-48.0) % MCV 90.2 (81.0-99.0) fL MCH 30.4 (26.7-34.0) pg MCHC 33.8 (29.9-35.2) g/dL RDW 12.8 (11.0-15.0) % Plt Count 205 (150-450) 10^3/uL MPV 10.3 (9.5-13.5) fL Neut % (Auto) 80.3 H (43.0-75.0) % Lymph % (Auto) 8.0 L (20.5-60.0) % [place] % (Auto) 2.4 (1.7-12.0) % Eos % (Auto) 8.2 H (0.9-7.0) % Baso % (Auto) 0.7 (0.2-2.0) % Neut # (Auto) 5.6 (1.4-6.5) 10^3/uL Lymph # (Auto) 0.6 L (1.2-3.8) 10^3/uL [place] # (Auto) 0.2 L (0.3-0.8) 10^3/uL Eos # (Auto) 0.6 (0.0-0.7) 10^3/uL Baso # (Auto) 0.1 (0.0-0.1) 10^3/uL Abs Immat Gran (auto) 0.03 (0.00-0.03) 10^3/uL Imm/Tot Granulo (auto) 0.4 (0.0-0.5) % D-Dimer 1.38 H* (<=0.59) mg/L FEU Sodium 141 (136-145) mmol/L Potassium 3.7 (3.5-5.1) mmol/L Chloride 103 (98-107) mmol/L Carbon Dioxide 30.1 (21.0-32.0) mmol/L Anion Gap 11.6 BUN 11.0 (7.0-18.0) mg/dL Creatinine 0.70 (0.55-1.02) mg/dL Est GFR ( Amer) >60 (>=60 mL/min/1.73m^2) Est GFR (Non-Af Amer) >60 (>=60 mL/min/1.73m^2) BUN/Creatinine Ratio 15.7 Glucose 137 H (74-106) mg/dL Calcium 9.5 (8.5-10.1) mg/dL Magnesium 1.8 (1.8-2.4) mg/dL Total Bilirubin 0.5 (0.2-1.0) mg/dL AST 10 L (15-37) U/L ALT 20 (14-59) U/L Alkaline Phosphatase 69 (46-116) U/L NT-Pro-B Natriuret Pep 192.0 (<=450.0) pg/mL Total Protein 7.5 (6.4-8.2) g/dL Albumin 3.5 (3.4-5.0) g/dL Globulin 4.0 g/dL Albumin/Globulin Ratio 0.9 Serum HCG, Qual Negative (NEGATIVE) Imaging Data Chest x-ray: Radiologist's impression: ITS Impressions Chest X-Ray 07/16/24 19:56 IMPRESSION: No acute process. Impression dictated by: Gordon Murdock M.D. 07/16/2024 8:18 PM Dictation Location: [employer] Electronically authenticated by: [id number] Y Date: 07/16/2024 20:18 ECG Data Attestation: I personally reviewed and interpreted this ECG as follows: (EKG performed at 2008hrs reveals sinus rhythm at 85 bpm. Normal axis. No ischemia, STEMI, ectopy, or other acute or concerning changes) Discharge Plan Discharge Stand Alone Forms: Portal Instructions Clinical Impression: Rash and nonspecific skin eruption, Shortness of breath Patient Disposition: Left Against Medical Advice Time of Disposition Decision: 01:45 Prescriptions / Home Meds: New prednisone 20 mg tablet 40 mg PO DAILY 5 Days Qty: 10 0RF famotidine [Pepcid] 20 mg tablet 20 mg PO BID Qty: 20 0RF diphenhydramine HCl [Benadryl] 25 mg capsule 25 mg PO Q8H PRN (Reason: rash, itching) Qty: 14 0RF No Action albuterol sulfate 90 mcg/actuation HFA aerosol inhaler 2 puff INHALATION Q4H PRN (Reason: shortness of breath or wheezing) fluticasone propionate 50 mcg/actuation spray,suspension 2 spray INTRANASAL .morning Nighttime Sleep-Aid (doxylamn) 25 mg tablet 25 mg PO .hs PNV cmb#95-ferrous fumarate-FA [] 28 mg iron- 800 mcg tablet 1 tab PO DAILY ibuprofen 800 mg tablet 800 mg PO Q8H PRN (Reason: pain) 14 Days Qty: 40 0RF losartan 25 mg tablet mupirocin 2 % ointment TOPICAL doxycycline hyclate 100 mg tablet hydrochlorothiazide 12.5 mg tablet buprenorphine-naloxone 8-2 mg film Print Language: Maltese Instructions: Acute Rash (ED) Referrals: Navarro Haider MD [Primary Care Provider, Family Practice] - 1 week Discharge Date/Time: 07/17/24 01:45
[2024-07-16] MEDS: METHYLPREDNISOLONE SOD SUCC PF 125 MG/2 ML VIAL IVP (20:37)
[2024-07-16] MEDS: FAMOTIDINE/PF 20 MG/2 ML VIAL IV (20:38)
[2024-07-16] MEDS: DIPHENHYDRAMINE HCL 50 MG/ML VIAL 25 MG IV (20:38)
[2024-07-16 20:51] LABS: Basophils Absolute Auto 0.1 10^3/uL (0.0-0.1); Basophils Percent Auto 0.7 % (0.2-2.0); Eosinophils Absolute Auto 0.6 10^3/uL (0.0-0.7); Eosinophils Percent Auto 8.2 % (0.9-7.0); Hematocrit 39.4 % (36.0-48.0); Hemoglobin 13.3 g/dL (12.0-16.0); Immature Granulocytes Abs Auto 0.03 10^3/uL (0.00-0.03); Immature Granulocytes Pct Auto 0.4 % (0.0-0.5); Lymphocytes Absolute Auto 0.6 10^3/uL (1.2-3.8); Mean Corpuscular HGB Conc 33.8 g/dL (29.9-35.2); Mean Corpuscular Hemoglobin 30.4 pg (26.7-34.0); Mean Corpuscular Volume 90.2 fL (81.0-99.0); Mean Platelet Volume 10.3 fL (9.5-13.5); Monocytes Absolute Auto 0.2 10^3/uL (0.3-0.8); Monocytes Percent Auto 2.4 % (1.7-12.0); Neutrophils Absolute Auto 5.6 10^3/uL (1.4-6.5); Neutrophils Percent Auto 80.3 % (43.0-75.0); Platelet Count 205 10^3/uL (150-450); Red Blood Count 4.37 10^6/uL (4.20-5.40); Red Cell Distribution Width 12.8 % (11.0-15.0)
[2024-07-16 21:03] LABS: HCG Qualitative NEGATIVE (NEGATIVE); Internal Control Within Normal Limits
[2024-07-16 21:06] LABS: Alanine Aminotransferase 20 U/L (14-59); Albumin Globulin Ratio 0.9; Albumin Level 3.5 g/dL (3.4-5.0); Alkaline Phosphatase 69 U/L (46-116); Anion Gap 11.6; Aspartate Amino Transferase 10 U/L (15-37); BUN Creatinine Ratio 15.7; Bilirubin Total 0.5 mg/dL (0.2-1.0); Calcium 9.5 mg/dL (8.5-10.1); Carbon Dioxide 30.1 mmol/L (21.0-32.0); Chloride 103 mmol/L (98-107); Estimated GFR (African America >60 (>=60 mL/min/1.73m^2); Estimated GFR (Non-African Ame >60 (>=60 mL/min/1.73m^2); Glucose 137 mg/dL (74-106); Potassium 3.7 mmol/L (3.5-5.1); Sodium 141 mmol/L (136-145); Total Protein 7.5 g/dL (6.4-8.2)
[2024-07-16 21:13] LABS: Magnesium 1.8 mg/dL (1.8-2.4)
[2024-07-16 21:14] LABS: D Dimer 1.38 mg/L FEU (<=0.59)
[2024-07-17] MEDS: DIPHENHYDRAMINE HCL 25 MG CAPSULE PO (01:50)
== END 2024-07-17 01:45 | disposition left against medical advice (07) ==
LOC: ER 19:27
PROVIDERS: Physician Assistant; Emergency Provider Internal Medicine; PCP Family Medicine
DX: R06.02 Shortness of breath (principal); R21 Rash and other nonspecific skin eruption; F17.210 Nicotine dependence, cigarettes, uncomplicated; Z87.440 Personal history of urinary (tract) infections; Z53.29 Procedure and treatment not carried out because of patient's decision for other reasons
CPT/HCPCS: 36415; 71045; 71275; 80053; 83735; 83880; 84703; 85025; 85378; 93005; 96374; 96375; 99285; J1200; J2919; J3490; Q9967

== ENCOUNTER 2024-07-25 16:00 | Outpatient (OUT) | payer MEDICAID, SELFPAY ==
--- NOTE | 2024-07-25 18:13 | NUTR.NU ---
Alesha requested nutrition education for weight control and prepping/cooking healthy meals for her family. is diabetic, teenage daughter has school and work activities, pre-teen daughter plays softball. Pt also has an [id number] son and cares for her grandmother who has been diagnosed with age-related cognitive decline. Discussed how to use Planning Healthy Meals handout to include healthy selections from all food groups, developing meals which will meet the needs of all family members. Provided [id number] kcal meal pattern w/sample meal plan and Mediterranean Diet guidelines for long-term healthy eating habits to benefit Alesha and all her family members. She asked appropriate questions and appears motivated to make appropriate dietary changes. She was encouraged to follow-up with Dietitian by phone or email. Dietitian contact information provided for questions or concerns.
--- OUTSIDE RECORDS SUMMARY | 2024-08-01 07:22 | XMS_ITS | CCD ---
Author Organization [facility] CliniSynh Care Team Providers Care Education Rep Name Role Phone IVAN FERNANDEZ Unavailable Unavailable [...] TANIKA Unavailable Unavailable TALYA BRIAN Unavailable Unavailable HERRERA, GOVBAMRAM K Unavailable Unavailable NO FAMILY DOCTOR, [...] Unavaila Navarro Fuentes MD Primary Care Provider [phone] Allen STOVE INSTALLER, Sonya Unavailable Villa STOVE INSTALLER, Sonya Unavailable Allen CHILD WELFARE WORKER - STOVE INSTALLER, [facility] Primary Care Pro vider MELYSSA CORTEZ Referring Unavailable ALLEN, [facility] Primary Care UnavailGORDON Encinas Admitting Unavailable GORDON RANGEL Attending Unavailable KOFI VILLATANY Primary Care Unavailabl e ALLEN, SONYA Attending Unavailabl e SONYA VILLA Attending Unavailabl RUFINO Hsieh Attending Unavailable RUFINO ARIAS Referring Unavailable RUFINO ARIAS Attending Unavailable RUFINO ARIAS Attending Unavailable RUFINO ARIAS Attending Unavailable RUFINO ARIAS Attending Unavailable NAVARRO OVIEDO Attending Unavailable JUANA, RUFINO Jackson Attending Unavailable NAVARRO OVIEDO Attending Unavailable RUFINO ARIAS Attending Unavailable SHAIKH HOPSON Attending Unavailable VILLASONYA SCHROEDER Attending Unavailabl e VILLASONYA WILLS Attending Unavailabl e Allergies Allergy Classification Reported Allergen(s) Allergy Type Date of Onset Reaction(s) Facility (20 sources) Acetaminophen / HYDROcodone; Translations: [HYDROCODONE-ACETAMI NOPHEN] Drug Allergy 10-21-19 13 Unknown [facility] Repository (20 sources) traMADol; Translations: [TRAMADOL] Drug Allergy 10-21-19 13 Unknown [facility] Repository (1 source) Acetaminophen / HYDROcodone Drug Allergy 08-28-19 16 [facility] Repository (1 source) Codeine Drug Allergy 05-08-19 09 [facility] Repository (1 source) Penicillin Drug Allergy 06-15-19 20 [facility] Repository (20 sources) Codeine Drug Allergy 07-29-19 23 [facility] Work Phone: (20 sources) Penicillin G Drug Allergy 12-30-19 23 [facility] (20 sources) Penicillins Propensity to adverse reactions 07-29-19 23 [facility] (20 sources) Sulfamethoxazole / Trimethoprim Drug Allergy 08-12-19 24 [facility] Work Phone: (20 sources) Vancomycin Drug Allergy 12-27-19 18 Anaphylaxis [facility] (2 sources) Penicillins Propensity to adverse reactions to drug 07-29-19 23 [facility] (8 sources) Ciprofloxacin Drug Allergy 07-12-19 25 [facility] Work Phone: (5 sources) Nitrofurantoin Drug Allergy 07-20-19 25 Hives [facility] Medications Current Medications Medication Drug Class(es) Dates Sig (Normalized) Sig (Original) [id number] 200 actuat albuterol 0.09 mg/actuat metered dose inhaler (10 sources) beta2-Adrenergic Agonist Start: 07-13-2024 take 2 [...] a t 100 mL/hr, CONTINUOUS, Starting on Wed06/22/24 at 0845, Pre-op (day of surgery) Cholecalciferol (20 sources) Vitamin D Start: 06-19-2024 take 1 [...] nasal spray (20 sources) Corticosteroid Start: 04-05-2023 End: 07-19-2024 take 2 spray(s) nasal route in the morning fluticasone (Flonase) 50 MCG/ACT nasal spray Indications: Acute cough , Chronic allergic rhinitis Administer 2 sprays into each nostril in the morning. Shake gently. Before first use, prime pump. After use, clean tip and replace cap.. 16 g 2 04/05/2023 07/19/2024 Discontinued folic acid 1 mg oral tablet (20 sources) Start: 03-21-2024 End: 03-21-2025 take 1 [...] Daily 30 tablet 11 11/23/2023 11/22/2024 Active hydrOXYzine hydrochloride 25 mg oral tablet (5 sources) Antihistamine Start: 07-19-2024 take 1 tablet by mouth four times daily as needed hydrOXYzine HCl (Atarax) 25 MG tablet Indications: Urticaria Take 1 tablet (25 mg) by mouth 4 (four) times a day as needed for itching 60 tablet 2 07/19/2024 Active losartan potassium 25 mg oral tablet (20 sources) Angiotensin 2 Receptor Ketan Start: 03-09-2024 End: 03-09-2025 take 1 tablet by mouth once daily losartan (Cozaar) 25 MG tablet Indications: Primary hypertension Take 1 tablet (25 mg) by mouth Daily 30 tablet 11 03/09/2024 03/09/2025 Active meloxicam 15 mg oral tablet (2 sources) Nonsteroidal Anti-inflammatory Drug take 1 tablet by mouth once daily meloxicam (MOBIC) 15 MG tablet Take 1 tablet by mouth daily Active 24 hr metFORMIN hydrochloride 500 mg extended release oral tablet (1 source) Biguanide Start: 07-25-2024 End: 07-25-2025 take 1 tablet by mouth every twenty-four hours at mealtime metFORMIN XR (Glucophage-XR) 500 MG 24 hr tablet Indications: PCOS (polycystic ovarian syndrome) Take 1 tablet (500 mg) by mouth in the evening. Take with meals Do not crush, chew, or split. 30 tablet 11 07/25/2024 07/25/2025 Active mupirocin 0.02 mg/mg topical ointment (20 [...] / nitrofurantoin, monohydrate 75 mg oral capsule (4 sources) Nitrofuran Antibacterial Start: 07-11-2024 End: 07-19-2024 take 1 capsule by mouth in the morning nitrofurantoin, macrocrystal-monohydrate, (Macrobid) 100 MG capsule Indications: Urinary tract infection without hematuria, site unspecified Take 1 capsule (100 mg) by mouth in the morning and 1 capsule (100 mg) before bedtime. Do all this for 7 days. 14 capsule 07/11/2024 07/19/2024 Discontinued ondansetron 4 mg oral tablet (2 sources) Serotonin-3 Receptor Antagonist take 1 tablet by mouth every eight hours as needed ondansetron (ZOFRAN) 4 MG tablet Take 1 tablet by mouth every 8 hours as needed Active phentermine hydrochloride 37.5 mg oral tablet (19 sources) Sympathomimetic Amine Anorectic Start: 06-26-2024 End: 07-26-2024 take 45-49.9 tablets by mouth before mealtime phentermine (Adipex-P) 37.5 MG tablet Indications: Class 3 severe obesity due to excess calories with serious comorbidity and body mass index (BMI) of 45.0 to 49.9 in adult ([facility]) , Encounter for weight management Take 1 tablet (37.5 mg) by mouth in the morning. Take before meals. 30 tablet 06/26/2024 Active Start: 07-13-2023 End: 11-23-2023 take 1 tablet by mouth before mealtime phentermine (Adipex-P) 37.5 MG tablet Indications: Morbid obesity ([facility]) Take 1 tablet (37.5 mg) by mouth in the morning. Take before meals. 30 tablet 08/12/2023 10/11/2023 Discontinued (Therapy completed) predniSONE 10 mg oral tablet (7 sources) Start: 07-19-2024 take 6 tablets by mouth once daily, then take 4 tablets by mouth once daily, then take 2 tablets by mouth once daily, then take 1 tablet by mouth once daily predniSONE (Deltasone) 10 MG tablet Indications: Allergic reaction due to antibacterial drug 6 PO daily x 3 days, 4 PO daily x 3 days, 2 PO daily x 3 days, 1 PO daily x 3 days 39 tablet 07/19/2024 Active Start: 06-26-2024 End: 07-02-2024 take 1 tablet [...] Date Documented Da te Episodic/Chronic Allergic reactions (8 sources) Allergy status to penicillin; Translations: [Urticaria] Onset: 04-05-2018 07-19-2024 Episodic Chronic obstructive pulmonary disease and bronchiectasis [...] Periapical abscess without sinus Onset: 04-05-2018 Episodic E Codes: Adverse effects of medical drugs (7 sources) Allergic reaction caused by antibacterial agent; Translations: [Adverse effect of unspecified systemic antibiotic, initial encounter] Onset: 07-19-2024 07-19-2024 Episodic Essential hypertension (20 sources) Essential hypertension; [...] unspecified] 03-21-2024 Chronic Other connective tissue disease (10 sources) Pain in right foot; Translations: [Pain [...] Chronic Other nutritional; endocrine; and metabolic disorders (12 sources) Severe obesity; Translations: [Class 3 severe [...] and other nonspecific skin eruption; Translations: [RASH OT NONSPECIFIC SKIN ERUPTION] Onset: 04-23-2022 Episodic Pneumonia [...] (SUSP) EXPOS COVID-19] Onset: 06-19-2022 Viral infection (10 sources) Verruca plantaris; Translations: [Plantar wart] 03-30-2024 [...] [Acute upper respiratory infection, unspecified] Onset: 03-03-2023 Resolved: 07-19-2024 03-03-2023 Episodic [place]-; endo-; and myocarditis; cardiomyopathy [...] Serumon HCG ( test) Ql Negative NEGATIVE [facility] Comment on above: Specimens with hCG l evels near the threshold of the test (25 mIU/mL) may give a negative or indeterminate result. In such cases, another test should be performed with a new specimen in 48-72 hours. If early is suspected clinically in this setting, correlation with quantitative serum b-hCG level is suggested. [employer] has confirmed the use of plasma for this test. This has not been cleared or approved by the U.S. Food and Drug Administration. The FDA has determined that such clearance is not necessary. [facility] HCG Screen, Bloodon 06-23-19 25 HCG Screen, Blood Negative Normal NEG [facility] Comment on above: Result Comment: Spec imens with hCG levels near the threshold of the test (25 mIU/mL) may give a negative or indeterminate result. In such cases, another test should be performed with a new specimen in 48-72 hours. If early is suspected clinically in this setting, correlation with quantitative serum b-hCG level is suggested. [employer] has confirmed the use of plasma for this test. This has not been cleared or approved by the U.S. Food and Drug Administration. The FDA has determined that such clearance is not necessary. Performed By: #### H CG #### [facility] [address] [place] [address] Brusher Machine: Gabo Brink MD EKG 12 LeadOrdered By: Umair Seaman on 05-22-2024 Atrial Rate 76 BPM [facility] [employer] Phone: P [place] 43 degrees [employer] Phone: P-R Interval 140 ms [employer] Phone: Q-T Interval 412 ms [employer] Phone: QRS Duration 88 ms [employer] Phone: QTc Calculation (Bazett) 463 ms [employer] Phone: R [place] 35 degrees [employer] Phone: T [place] 41 degrees [employer] Work Phone: Ventricular Rate 76 BPM Fer [place] Work Phone: [facility] Work Phone: EKG 12 Leadon 05-22-2024 Normal sinus rhythm Normal ECG No previous ECGs available Confirmed by RODRIGO SEAMAN ([id number]) on 05/22/2024 12:04:18 AM [facility] Rodrigo Seaman MD - 05/22/2024 Normal sinus rhythm Normal ECG No previous ECGs available Confirmed by RODRIGO SEAMAN ([id number]) on 05/22/2024 12:04:18 AM [facility] OCCULT BLOOD*on 03-21-2024 Interpretation and review of laboratory results Abnormal [facility] OCCULT BLOOD Positive Abnormal [facility] METRO IRON AND TIBCon 2024 [facility] IRON 95 ug/dL 50.0 - 170.0 ug/dL [facility] PERCENT IRON SATURATION 37 % [facility] TOTAL IRON BINDING CAPACITY 257 ug/dL 250.0 - 450.0 ug/dL [facility] ALL CBC WITH AUTO DIFFon BASOPHILS ABSOLUTE AUTO 0.1 [facility] Basophils/100 WBC (Bld) 1.5 % 0.2 - 2.0 % [facility] Eosinophils/100 WBC (Bld) 6.4 % 0.9 - 7.0 % [facility] Erythrocyte distribution width (RBC) [Ratio] 13.2 % 11.0 - 15.0 % [facility] Hematocrit (Bld) [Volume fraction] 36.9 % 36.0 - 48.0 % [facility] Hemoglobin (Bld) [Mass/Vol] 12.2 g/dL 12.0 - 16.0 g/dL [facility] IMMATURE GRANULOCYTES ABS AUTO 0.01 [facility] Immature granulocytes/100 WBC (Bld) 0.3 % 0.0 - 0.5 % [facility] Interpretation and review of laboratory results Abnormal [facility] LYMPHOCYTES ABSOLUTE AUTO 0.8 Low [facility] Lymphocytes/100 WBC (Bld) 21.8 % 20.5 - 60.0 % [facility] MCH (RBC) [Entitic mass] 29.6 pg 26.7 - 34.0 pg [facility] MCHC (RBC) [Mass/Vol] 33.1 g/dL 29.9 - 35.2 g/dL [facility] MCV (RBC) [Entitic vol] 89.6 fL 81.0 - 99.0 fL [facility] MONOCYTES ABSOLUTE AUTO 0.3 [facility] Monocytes/100 WBC (Bld) 9.6 % 1.7 - 12.0 % [facility] NEUTROPHILS ABSOLUTE AUTO 2.1 [facility] Neutrophils/100 WBC (Bld) 60.4 % 43.0 - 75.0 % [facility] Platelet mean volume (Bld) [Entitic vol] 10.3 fL 9.5 - 13.5 fL [facility] TBH EO # 0.2 [facility] TBH PLT 139 Low [facility] TB RBC 4.12 Low [facility] TBH WBC 3.4 Low [facility] CLINISYNC [facility] Otolaryngology Office/Clinic Noteon 07-14-2022 Otolaryngology Office/Clinic Note [...] Liliane Devries PA-C 07/18/22 11:45 EDT Normal [facility] Otolaryngology Office/Clinic Noteon 07-06-2022 Otolaryngology [...] g, 0 Refill(s), 07/20/22 15:17:00 EDT, Pharmacy: [facility]/pharmacy #[id number] Medical Decision Making Chronic conditions NOT treated [...] Oral Jitendra (more content not included)... Normal [facility] US PREG TVon 06-26-2022 US [...] RODRIGO ACOSTA Date: 2022-06-26 09:18 Normal [facility] Covid-19 PCR (CVDTB)on SARS-CoV-2 (COVID-19) RNA JANET+probe Ql (Unsp spec) Not detected Normal NOT DETECTED [facility] Comment on above: Result Comment: This test is not yet approved or cleared by the [place] FDA. When there are no FDA-approved or cleared tests available, and other criteria are met, FDA can make tests available under an emergency access mechanism called an Emergency Use Authorization (EUA). The EUA for this test is supported by the [employer] of Health and Human Service's (HHS's) declaration [...] consistent with SARS-CoV-2. Performed By: #### C VDTB #### [facility] [address] [place] [address] Dr. Ja Cohen INFLUENZA A AND B [facility] SEE BELOW Normal [facility] Comment on above: Result Comment: Nega tive for Flu A protein angiten. Infection due to Flu A cannot be ruled out. Flu A angiten in the sample may be below the detection limit of the test. Performed By: #### I NFLUAB #### [facility] [address] [place] [address] Dr. [facility] SEE BELOW Normal [facility] Comment on above: Result Comment: Nega tive for Flu B protein antigen. Infection due to Flu B cannot be ruled out. Flu B antigen in the sample may be below the detection limit of the test. Performed By: #### I NFLUAB #### [facility] [address] [place] [address] Dr. Ja Cohen INFLUENZA A AG Negative Normal NEGATIVE SEE COMMENT [facility] Comment on above: Performed By: #### I NFLUAB #### [facility] [address] [place] [address] Dr. Ja Cohen INFLUENZA B AG Negative Normal NEGATIVE SEE COMMENT [facility] Comment on above: Performed By: #### I NFLUAB #### [facility] [address] [place] [address] Dr. Ja Cohen SYMPTOMATIC COVID-19 ANTIGEN on 06-16-2022 EUA Statement SEE BELOW Normal [facility] Comment on above: Result Comment: [...] sooner. Performed By: #### C VDAGS #### [facility] [address] [place] [address] Dr. Ja Cohen SARS-CoV-2 (COVID-19) RNA JANET+probe Ql (Unsp spec) Negative Normal NEGATIVE [facility] Comment on above: Performed By: #### C VDAGS #### [facility] [address] [place] [address] Dr. aJ Cohen PREG QUANT HCGon 06-11-2022 HCG QUANT 02696 mIU/mL Normal [facility] Comment on above: Performed By: #### P REGQNT #### [facility] [address] [place] [address] Dr. Ja Cohen HCG RANGE SEE BELOW Normal [facility] Comment on above: Result Comment: 5-50 0.2-1 WEEK 50-500 1-2 WEEKS 100-5,000 2-3 WEEKS 500-10,000 3-4 WEEKS 1,000-50,000 4-5 WEEKS 10,000-100,000 5-6 WEEKS 15,000-200,000 6-8 WEEKS 10,000-100,000 2-3 MONTHS Performed By: #### P REGQNT #### [facility] [address] [place] [address] Dr. Ja Cohen ECHOCARDIO M/2D COMPLETEon 0 08-11-2021 ECHOCARDIO M/2D COMPLETE Patient: ALESHA KENNEY Exam Date: 08/11/2021 : 1985 Gender:F Ordering : SHAIKH Addy HOPSON . Admission #: [id number] Family : Order #: [id number] CLICK HERE TO VIEW EXAM ECHOCARDIOGRAM REPORT [...] Area(A4C): 23.40 cm2 Left Atrium Systolic Volume(A2C): 32371 mm3 Left Atrium Systolic Volume(A4C): 71522 mm3 Mitral Valve MV E to A Ratio: 1.90 MV Mean Gradient: 1 mm[Hg] Deceleration [place]: 6410 mm/s2 Mitral Valve A-Wave Peak Velocity: [...] Mederos M.D. on 08/11/2021 at 12:50 Normal [facility] AFB Culture with Stainon AFB Stain SEE NOTE Normal [facility] Comment on above: Result Comment: Nega tive for Acid Fast Bacteria.Less than 5 mL of specimen received.A minimum of 5 mL of sputum or fluid is recommendedfor recovery of acid fast bacilli (AFB).Volumes less than 5 mL are suboptimal and maycompromise recovery of AFB from culture. Final SEE NOTE Normal [facility] Comment on above: Result Comment: Cult ure negative for acid fast bacilliPerformed by [employer],[address] [facility] [address] ubo[employer], Artur Agustin MD - Lab. Director Preliminary SEE NOTE Normal [facility] Comment on above: Result Comment: Spec imen received and in progress.Positive culture results are called as soon as detected.Final report to follow in seven to eight weeksPerformed by [facility],[address] [facility] [place] [address] fpt.[employer], Artur Agustin MD - Lab. Director AFB Stain SEE NOTE Normal [facility] Comment on above: Order Comment: CALL [place] LC1W tel. [phone], called hgb to ramila oseguera rn on 1w by scbHematology results called to and read back by ramila oseguera on 1w, 12/27/201706:44, by BON Result Comment: Nega tive for Acid Fast Bacteria. Order Comment: Bronc h wash RULBronch Wash RUL Final SEE NOTE Normal [facility] Comment on above: Order Comment: Bronc h wash RULBronch Wash RUL Result Comment: Cult ure negative for acid fast bacilliPerformed by [employer],[address] [facility] [place] [address] rna.[employer], Artur Agustin MD - Lab. Director Order Comment: CALL [place] LC1W tel. [phone], called hgb to ramila oseguera rn on 1w by scbHematology results called to and read back by ramila oseguera on 1w, 12/27/201706:44, by BONSA Basic Metabolic Panelon - Anion gap 3 molar conc 10 mmol/L Normal 7-13 [facility] Calcium mass conc 8.7 mg/dL Normal 8.6-10.2 [facility] Chloride molar conc 105 mmol/L Normal 98-107 [facility] CO2 molar conc 26 mmol/L Normal 22-29 [facility] Creatinine mass conc 0.60 mg/dL Normal 0.50-0.90 [facility] GFR/1.73 sq M predicted among blacks MDRD vol rate/area (S/P/Bld) mL/min/{1.73_m2} Normal >60 [facility] Comment on above: Result Comment: >60 mL/min/1.73m2 EGFR, calc. for ages 18 and older using theMDRD formula (not corrected for weight), is valid for stablerenal function. GFR/1.73 sq M.predicted MDRD vol rate/area mL/min/{1.73_m2} Normal >60 [facility] Comment on above: Result Comment: >60 mL/min/1.73m2 EGFR, calc. for ages 18 and older using theMDRD formula (not corrected for weight), is valid for stablerenal function. Glucose mass conc 101 mg/dL Normal 74-109 [facility] Potassium molar conc 4.5 mmol/L Normal 3.5-5.1 [facility] Sodium molar conc 141 mmol/L Normal 132-144 [facility] Urea nitrogen mass conc 15 mg/dL Normal 6-20 [facility] CBC With Platelet No Differe ntialon 02-01-2018 Erythrocyte distribution width Auto Ratio (RBC) 23.7 % Critically high 11.5-14.5 [facility] Hematocrit Auto Volume Fraction (Bld) 28.0 % Low 37.0-47.0 [facility] Hemoglobin mass conc (Bld) 9.3 g/dL Low 12.0-16.0 [facility] MCH Auto Entitic mass (RBC) 29.1 pg Normal 27.0-31.3 [facility] MCHC Auto mass conc (RBC) 33.1 % Normal 33.0-37.0 [facility] MCV Auto Entitic volume (RBC) 87.9 fL Normal 82.0-100.0 [facility] Platelets Auto #/vol (Bld) 229 10*3/uL Normal 130-400 [facility] RBC Auto #/vol (Bld) 3.19 10*6/uL Low 4.20-5.40 [facility] WBC Auto #/vol (Bld) 2.7 10*3/uL Low 4.8-10.8 [facility] Culture, Funguson 01-29-2018 Final SEE NOTE Normal [facility] Comment on above: Order Comment: CALL [place] LC1W tel. [phone], called hgb to ramila oseguera rn on 1w by scbHematology results called to and read back by ramila oseguera on 1w, 12/27/201706:44, by RAYSHAWN Result Comment: Cult ure negative for FungiPerformed by [facility],[address], [facility] [address] txl.[employer], Artur Agustin MD - Lab. Director Basic Metabolic Panelon 01-15 Anion gap 3 molar conc 9 mmol/L Normal 7-13 [facility] Calcium mass conc 9.5 mg/dL Normal 8.6-10.2 [facility] Chloride molar conc 106 mmol/L Normal 98-107 [facility] CO2 molar conc 27 mmol/L Normal 22-29 [facility] Creatinine mass conc 0.71 mg/dL Normal 0.50-0.90 [facility] GFR/1.73 sq M predicted among blacks MDRD vol rate/area (S/P/Bld) mL/min/{1.73_m2} Normal >60 [facility] Comment on above: Result Comment: >60 mL/min/1.73m2 EGFR, calc. for ages 18 and older using theMDRD formula (not corrected for weight), is valid for stablerenal function. GFR/1.73 sq M.predicted MDRD vol rate/area mL/min/{1.73_m2} Normal >60 [facility] Comment on above: Result Comment: >60 mL/min/1.73m2 EGFR, calc. for ages 18 and older using theMDRD formula (not corrected for weight), is valid for stablerenal function. Glucose mass conc 93 mg/dL Normal 74-109 [facility] Potassium molar conc 4.7 mmol/L Normal 3.5-5.1 [facility] Sodium molar conc 142 mmol/L Normal 132-144 [facility] Urea nitrogen mass conc 14 mg/dL Normal 6-20 [facility] CBC With Platelet and Differ entialon 01-25-2018 Anisocytosis Auto Ql (Bld) PRESENT Normal [facility] Erythrocyte distribution width Auto Ratio (RBC) 28.7 % Critically high 11.5-14.5 [facility] Hematocrit Auto Volume Fraction (Bld) 24.9 % Low 37.0-47.0 [facility] Hemoglobin mass conc (Bld) 8.3 g/dL Low 12.0-16.0 [facility] MCH Auto Entitic mass (RBC) 28.2 pg Normal 27.0-31.3 [facility] MCHC Auto mass conc (RBC) 33.1 % Normal 33.0-37.0 [facility] MCV Auto Entitic volume (RBC) 85.0 fL Normal 82.0-100.0 [facility] Platelets Auto #/vol (Bld) 225 10*3/uL Normal 130-400 [facility] RBC Auto #/vol (Bld) 2.93 10*6/uL Low 4.20-5.40 [facility] Basophils Auto #/vol (Bld) 0.0 10*3/uL Normal 0.0-0.2 [facility] Basophils/100 WBC Auto (Bld) 1.0 % Normal [facility] Eosinophils Auto #/vol (Bld) 0.3 10*3/uL Normal 0.0-0.7 [facility] Eosinophils/100 WBC Auto (Bld) 5.4 % Normal [facility] Lymphocytes Auto #/vol (Bld) 1.7 10*3/uL Normal 1.0-4.8 [facility] Lymphocytes/100 WBC Auto (Bld) 37.1 % Normal [facility] Monocytes Auto #/vol (Bld) 0.2 10*3/uL Normal 0.2-0.8 [facility] Monocytes/100 WBC Auto (Bld) 5.1 % Normal [facility] Neutrophils Auto #/vol (Bld) 2.4 10*3/uL Normal 1.4-6.5 [facility] Neutrophils/100 WBC Auto (Bld) 51.4 % Normal [facility] WBC Auto #/vol (Bld) 4.7 10*3/uL Low 4.8-10.8 [facility] Culture, Funguson 01-24-2018 Final SEE NOTE Normal [facility] Comment on above: Order Comment: Bronc h Wash LLLBronch Wash LLL Result Comment: Cult ure POSITIVE forYeast not Cryptococcus speciesPerformed by [employer],[address] [facility] [place] [address] srq.[employer], Artur Agustin MD - Lab. Director Preliminary SEE NOTE [facility] [facility] Comment on above: Order Comment: Bronc h Wash LLLBronch Wash LLL Result Comment: Cult ure POSITIVE forYeast not Cryptococcus speciesPerformed by [facility],[address] [place] [address] pds.[employer], Artur Agustin MD - Lab. Director Basic Metabolic Panelon 12 Anion gap 3 molar conc 10 mmol/L Normal 7-13 [facility] Calcium mass conc 9.4 mg/dL Normal 8.6-10.2 [facility] Chloride molar conc 102 mmol/L Normal 98-107 [facility] CO2 molar conc 27 mmol/L Normal 22-29 [facility] Creatinine mass conc 0.70 mg/dL Normal 0.50-0.90 [facility] GFR/1.73 sq M predicted among blacks MDRD vol rate/area (S/P/Bld) mL/min/{1.73_m2} Normal >60 [facility] Comment on above: Result Comment: >60 mL/min/1.73m2 EGFR, calc. for ages 18 and older using theMDRD formula (not corrected for weight), is valid for stablerenal function. GFR/1.73 sq M.predicted MDRD vol rate/area mL/min/{1.73_m2} Normal >60 [facility] Comment on above: Result Comment: >60 mL/min/1.73m2 EGFR, calc. for ages 18 and older using theMDRD formula (not corrected for weight), is valid for stablerenal function. Glucose mass conc 73 mg/dL Low 74-109 [facility] Potassium molar conc 4.6 mmol/L Normal 3.5-5.1 [facility] Sodium molar conc 139 mmol/L Normal 132-144 [facility] Urea nitrogen mass conc 15 mg/dL Normal 6-20 [facility] CBC With Platelet No Differe ntialon 01-21-2018 Erythrocyte distribution width Auto Ratio (RBC) 24.9 % Critically high 11.5-14.5 [facility] Hematocrit Auto Volume Fraction (Bld) 24.4 % Low 37.0-47.0 [facility] Hemoglobin mass conc (Bld) 8.1 g/dL Low 12.0-16.0 [facility] MCH Auto Entitic mass (RBC) 28.3 pg Normal 27.0-31.3 [facility] MCHC Auto mass conc (RBC) 33.3 % Normal 33.0-37.0 [facility] MCV Auto Entitic volume (RBC) 85.0 fL Normal 82.0-100.0 [facility] Platelets Auto #/vol (Bld) 184 10*3/uL Normal 130-400 [facility] RBC Auto #/vol (Bld) 2.88 10*6/uL Low 4.20-5.40 [facility] WBC Auto #/vol (Bld) 4.6 10*3/uL Low 4.8-10.8 [facility] Basic Metabolic Panelon 11-2 Anion gap 3 molar conc 10 mmol/L Normal 7-13 [facility] Calcium mass conc 9.3 mg/dL Normal 8.6-10.2 [facility] Chloride molar conc 106 mmol/L Normal 98-107 [facility] CO2 molar conc 26 mmol/L Normal 22-29 [facility] Creatinine mass conc 0.93 mg/dL Critically high 0.50-0.90 [facility] GFR/1.73 sq M predicted among blacks MDRD vol rate/area (S/P/Bld) mL/min/{1.73_m2} Normal >60 [facility] Comment on above: Result Comment: >60 mL/min/1.73m2 EGFR, calc. for ages 18 and older using theMDRD formula (not corrected for weight), is valid for stablerenal function. GFR/1.73 sq M.predicted MDRD vol rate/area mL/min/{1.73_m2} Normal >60 [facility] Comment on above: Result Comment: >60 mL/min/1.73m2 EGFR, calc. for ages 18 and older using theMDRD formula (not corrected for weight), is valid for stablerenal function. Glucose mass conc 103 mg/dL Normal 74-109 [facility] Potassium molar conc 4.5 mmol/L Normal 3.5-5.1 [facility] Sodium molar conc 142 mmol/L Normal 132-144 [facility] Urea nitrogen mass conc 17 mg/dL Normal 6-20 [facility] CBC With Platelet and Differ entialon 01-11-2018 Anisocytosis Auto Ql (Bld) PRESENT Normal [facility] Erythrocyte distribution width Auto Ratio (RBC) 23.8 % Critically high 11.5-14.5 [facility] Hematocrit Auto Volume Fraction (Bld) 25.6 % Low 37.0-47.0 [facility] Hemoglobin mass conc (Bld) 8.4 g/dL Low 12.0-16.0 [facility] Hypochromia PRESENT Normal [facility] MCH Auto Entitic mass (RBC) 26.5 pg Low 27.0-31.3 [facility] MCHC Auto mass conc (RBC) 32.8 % Low 33.0-37.0 [facility] MCV Auto Entitic volume (RBC) 80.9 fL Low 82.0-100.0 [facility] Platelets Auto #/vol (Bld) 259 10*3/uL Normal 130-400 [facility] RBC Auto #/vol (Bld) 3.16 10*6/uL Low 4.20-5.40 [facility] Basophils Auto #/vol (Bld) 0.1 10*3/uL Normal 0.0-0.2 [facility] Basophils/100 WBC Auto (Bld) 1.5 % Normal [facility] Eosinophils Auto #/vol (Bld) 0.2 10*3/uL Normal 0.0-0.7 [facility] Eosinophils/100 WBC Auto (Bld) 4.2 % Normal [facility] Lymphocytes Auto #/vol (Bld) 1.9 10*3/uL Normal 1.0-4.8 [facility] Lymphocytes/100 WBC Auto (Bld) 40.0 % Normal [facility] Monocytes Auto #/vol (Bld) 0.1 10*3/uL Low 0.2-0.8 [facility] Monocytes/100 WBC Auto (Bld) 3.1 % Normal [facility] Neutrophils Auto #/vol (Bld) 2.4 10*3/uL Normal 1.4-6.5 [facility] Neutrophils/100 WBC Auto (Bld) 51.2 % Normal [facility] WBC Auto #/vol (Bld) 4.6 10*3/uL Low 4.8-10.8 [facility] Culture, Funguson 01-08-2018 Preliminary SEE NOTE Normal [facility] Comment on above: Order Comment: CALL Murodck LC1W tel. [phone], called hgb to ramila oseguera rn on 1w by scbHematology results called to and read back by ramila oseguera on 1w, 12/27/201706:44, by BON Result Comment: No Nathan starks, culture still in progress.Performed by [facility],[address] [place] [address],[place] [address] cpq.[employer], Artur Agustin MD - Lab. Director CBC With Platelet and Differ entialon 01-04-2018 Anisocytosis Auto Ql (Bld) 2+ Normal [facility] Bands 2 % Low 5-11 [facility] Basophils Auto #/vol (Bld) 0.1 10*3/uL Normal 0.0-0.2 [facility] Basophils/100 WBC Auto (Bld) 1.0 % Normal [facility] Eosinophils Auto #/vol (Bld) 0.2 10*3/uL Normal 0.0-0.7 [facility] Eosinophils/100 WBC Auto (Bld) 2.0 % Normal [facility] Lymphocytes Auto #/vol (Bld) 0.7 10*3/uL Low 1.0-4.8 [facility] Lymphocytes/100 WBC Auto (Bld) 9.0 % Normal [facility] Macrocytic 1+ Normal [facility] Microcytic 1+ Normal [facility] Monocytes Auto #/vol (Bld) 0.0 10*3/uL Low 0.2-0.8 [facility] Monocytes/100 WBC Auto (Bld) 4.4 % Normal [facility] Neutrophils Auto #/vol (Bld) 6.8 10*3/uL Critically high 1.4-6.5 [facility] Neutrophils/100 WBC Auto (Bld) 86.0 % Normal [facility] Ovalocytes 1+ Normal [facility] Platelet Slide Review Normal Normal [facility] Poikilocytosis 2+ Normal [facility] Tear Drop Cells 1+ Normal [facility] Erythrocyte distribution width Auto Ratio (RBC) 20.4 % Critically high 11.5-14.5 [facility] Hematocrit Auto Volume Fraction (Bld) 22.7 % Low 37.0-47.0 [facility] Hemoglobin mass conc (Bld) 7.4 g/dL Low 12.0-16.0 [facility] MCH Auto Entitic mass (RBC) 26.3 pg Low 27.0-31.3 [facility] MCHC Auto mass conc (RBC) 32.5 % Low 33.0-37.0 [facility] MCV Auto Entitic volume (RBC) 80.8 fL Low 82.0-100.0 [facility] Platelets Auto #/vol (Bld) 234 10*3/uL Normal 130-400 [facility] RBC Auto #/vol (Bld) 2.81 10*6/uL Low 4.20-5.40 [facility] WBC Auto #/vol (Bld) 7.7 10*3/uL Normal 4.8-10.8 [facility] Respiratory Virus Panel by Bret Solis 01-04-2018 Adenovirus B/E - PCR Not Detected Normal [facility] Adenovirus C - PCR Not Detected Normal [facility] Comment on above: Result Comment: The specimen submitted for testing did not meet ARUPsubmission guidelines. Testing was performed on a specimenthat did not meet validated type requirements.Performance characteristics of this assay may be affected.Interpret results with caution. Please refer to the [employer] Test Directory for information on specimenacceptability:[email or web address].Test developed and characteristics determined by [facility]. See Compliance Statement B: [employer]/CS.Performed by [facility],[address] [place] [id number] ntt.[employer], Artur Agustin MD - Lab. Director Human Metapneumovirus - PCR Not Detected Normal [facility] Human Rhinovirus - PCR Not Detected Normal [facility] Influenza A - PCR Not Detected Normal [facility] Influenza A 2009 H1N1 - PCR Not Detected Normal [facility] Influenza A H1 - PCR Not Detected Normal [facility] Influenza A H3 - PCR Not Detected Normal [facility] Influenza B - PCR Not Detected Normal [facility] Parainfluenza Virus 1 - PCR Not Detected Normal [facility] Parainfluenza Virus 2 - PCR Not Detected Normal [facility] Parainfluenza Virus 3 - PCR Not Detected Normal [facility] Respiratory Syncytial Virus A - PCR Not Detected Normal [facility] Respiratory Syncytial Virus B - PCR Not Detected Normal [facility] RVP Source Bronch Wash RUL Normal [facility] CBC With Platelet and Differ entialon 01-02-2018 Basophils Auto #/vol (Bld) 0.1 10*3/uL Normal 0.0-0.2 [facility] Basophils/100 WBC Auto (Bld) 0.8 % Normal [facility] Eosinophils Auto #/vol (Bld) 0.1 10*3/uL Normal 0.0-0.7 [facility] Eosinophils/100 WBC Auto (Bld) 1.6 % Normal [facility] Erythrocyte distribution width Auto Ratio (RBC) 19.9 % Critically high 11.5-14.5 [facility] Hematocrit Auto Volume Fraction (Bld) 22.0 % Low 37.0-47.0 [facility] Hemoglobin mass conc (Bld) 7.3 g/dL Low 12.0-16.0 [facility] Lymphocytes Auto #/vol (Bld) 1.2 10*3/uL Normal 1.0-4.8 [facility] Lymphocytes/100 WBC Auto (Bld) 19.0 % Normal [facility] MCH Auto Entitic mass (RBC) 26.8 pg Low 27.0-31.3 [facility] MCHC Auto mass conc (RBC) 33.4 % Normal 33.0-37.0 [facility] MCV Auto Entitic volume (RBC) 80.4 fL Low 82.0-100.0 [facility] Monocytes Auto #/vol (Bld) 0.3 10*3/uL Normal 0.2-0.8 [facility] Monocytes/100 WBC Auto (Bld) 4.9 % Normal [facility] Neutrophils Auto #/vol (Bld) 4.8 10*3/uL Normal 1.4-6.5 [facility] Neutrophils/100 WBC Auto (Bld) 73.7 % Normal [facility] Platelets Auto #/vol (Bld) 248 10*3/uL Normal 130-400 [facility] RBC Auto #/vol (Bld) 2.74 10*6/uL Low 4.20-5.40 [facility] WBC Auto #/vol (Bld) 6.5 10*3/uL Normal 4.8-10.8 [facility] Rejection Notificationon Rejected Test FOB Normal [facility] Rejected Test FOB Normal [facility] AFB Culture with Stainon Preliminary SEE NOTE Normal [facility] Comment on above: Order Comment: Bronc h wash RULBronch Wash RUL Result Comment: Spec imen received and in progress.Positive culture results are called as soon as detected.Final report to follow in seven to eight weeksPerformed by [facility],[address] [facility] [place] [address] upv.[employer], Artur Agustin MD - Lab. Director Preliminary SEE NOTE Normal [facility] Comment on above: Order Comment: CALL [place] LC1W tel. [phone], called hgb to ramila oseguera rn on 1w by scbHematology results called to and read back by ramila oseguera on w, 12/27/201706:44, by BON Result Comment: Spec imen received and in progress.Positive culture results are called as soon as detected.Final report to follow in seven to eight weeksPerformed by [facility],[address] [facility] [place] [address] geb.[employer], Artur Agustin MD - Lab. Director CBC With Platelet and Differ entialon 01-01-2018 Basophils Auto #/vol (Bld) 0.0 10*3/uL Normal 0.0-0.2 [facility] Comment on above: Order Comment: CALL [place] LC1W tel. [phone], called hgb to ramila oseguera rn on 1w by scbHematology results called to and read back by ramila oseguera on 1w, 12/27/201706:44, by RAYSHAWN Basophils/100 WBC Auto (Bld) 0.8 % Normal [facility] Comment on above: Order Comment: CALL [place] [facility] tel. [phone], called hgb to ramila oseguera rn on 1w by scbHematology results called to and read back by ramila june on 1w, 12/27/201706:44, by RAYSHAWN Eosinophils Auto #/vol (Bld) 0.1 10*3/uL Normal 0.0-0.7 [facility] Comment on above: Order Comment: CALL [place] [facility] tel. [phone], called hgb to ramila june rn on 1w by scbHematology results called to and read back by ramila june on 1w, :44, by RAYSHAWN Eosinophils/100 WBC Auto (Bld) 1.8 % Normal [facility] Comment on above: Order Comment: CALL [place] [facility] tel. [phone], called hgb to ramila june rn on 1w by scbHematology results called to and read back by ramila june on 1w, :44, by RAYSHAWN Erythrocyte distribution width Auto Ratio (RBC) 18.6 % Critically high 11.5-14.5 [facility] Comment on above: Order Comment: CALL [place] [facility] tel. [phone], called hgb to ramila oseguera rn on 1w by scbHematology results called to and read back by ramila june on 1w, :44, by RAYSHAWN Hematocrit Auto Volume Fraction (Bld) 20.1 % Critically low 37.0-47.0 [facility] Comment on above: Order Comment: CALL [place] [facility] tel. [phone], called hgb to ramila june rn on 1w by scbHematology results called to and read back by ramila june on 1w, :44, by RAYSHAWN Hemoglobin mass conc (Bld) 6.7 g/dL Critically low 12.0-16.0 [facility] Comment on above: Order Comment: CALL [place] [facility] tel. [phone], called hgb to ramila june rn on 1w by scbHematology results called to and read back by ramilashawna oseguera on 1w, :44, by BONSA Result Comment: veri fied by repeat Lymphocytes Auto #/vol (Bld) 0.9 10*3/uL Low 1.0-4.8 [facility] Comment on above: Order Comment: CALL [place] [facility] tel. [phone], called hgb to ramila oseguera rn on 1w by scbHematology results called to and read back by ramila june on 1w, :44, by BONSA Lymphocytes/100 WBC Auto (Bld) 18.3 % Normal [facility] Comment on above: Order Comment: CALL [place] [facility] tel. [phone], called hgb to ramila june rn on 1w by scbHematology results called to and read back by ramila june on 1w, :44, by BONSA MCH Auto Entitic mass (RBC) 26.5 pg Low 27.0-31.3 [facility] Comment on above: Order Comment: CALL [address] tel. [phone], called hgb to ramila june rn on 1w by scbHematology results called to and read back by ramila june on 1w, :44, by BONSA MCHC Auto mass conc (RBC) 33.1 % Normal 33.0-37.0 [facility] Comment on above: Order Comment: CALL [address] tel. [phone], called hgb to ramila june rn on 1w by scbHematology results called to and read back by ramila oseguera on 1w, :44, by BONSA MCV Auto Entitic volume (RBC) 80.0 fL Low 82.0-100.0 [facility] Comment on above: Order Comment: CALL [place] [facility] tel. [phone], called hgb to ramila june rn on 1w by scbHematology results called to and read back by ramila june on 1w, :44, by BONSA Monocytes Auto #/vol (Bld) 0.3 10*3/uL Normal 0.2-0.8 [facility] Comment on above: Order Comment: CALL [place] [facility] tel. [phone], called hgb to ramila oseguera rn on 1w by scbHematology results called to and read back by ramila june on 1w, :44, by BONSA Monocytes/100 WBC Auto (Bld) 5.4 % Normal [facility] Comment on above: Order Comment: CALL [place] [facility] tel. [phone], called hgb to ramila oseguera rn on 1w by scbHematology results called to and read back by ramila june on 1w, :44, by BONSA Neutrophils Auto #/vol (Bld) 3.8 10*3/uL Normal 1.4-6.5 [facility] Comment on above: Order Comment: CALL [address] tel. [phone], called hgb to ramila oseguera rn on 1w by scbHematology results called to and read back by ramila june on 1w, :44, by BONSA Neutrophils/100 WBC Auto (Bld) 73.7 % Normal [facility] Comment on above: Order Comment: CALL [address] tel. [phone], called hgb to ramila oseguera rn on 1w by scbHematology results called to and read back by ramila june on 1w, :44, by BONSA Platelets Auto #/vol (Bld) 174 10*3/uL Normal 130-400 [facility] Comment on above: Order Comment: CALL [address] tel. [phone], called hgb to ramila soeguera rn on 1w by scbHematology results called to and read back by ramila june on 1w, :44, by BONSA RBC Auto #/vol (Bld) 2.51 10*6/uL Low 4.20-5.40 [facility] Comment on above: Order Comment: CALL [place] [facility] tel. [phone], called hgb to ramila oseguera rn on 1w by scbHematology results called to and read back by ramila june on 1w, :44, by BONSA WBC Auto #/vol (Bld) 5.1 10*3/uL Normal 4.8-10.8 [facility] Comment on above: Order Comment: CALL [place] LC1W tel. [phone], called hgb to ramila oseguera rn on 1w by pablitoematology results called to and read back by ramila oseguera on 1w, 12/27/201706:44, by RAYSHAWN Bacterial susceptibility fox el by Elvia 12-31-2017 Bacterial susceptibility panel by Minimum inhibitory concentration (ISRA) ORDERED BY: LESLIE PENALOZA: Blood COLLECTED: 12/31/17 00:40ANTIBIOTICS AT RADHA.: RECEIVED : 12/31/17 01:26CALL [place] LC4W tel. [phone],Blood culture results called to and read back by Henri Christine, 01/01/2018 13:30, by Fely, Blood 2 FINAL 01/03/18 07:41 1 out of 2 blood cultures POSITIVE for Serratia marcescens S. marces ANTIBIOTICS ISRA Interp A moxicillin/Clavulanate >=32 R Cefepime <=1 S Ceftriaxone <=1 S Ciprofloxacin <=0.25 S Gentamicin <=1 S Trimethoprim/Sulfamethoxaz ole <=20 S S=SUSCEPTIBLE I=INTERMEDIATE R=RESISTANT Normal [facility] CBC With Platelet and Differ entialon 12-31-2017 Basophils Auto #/vol (Bld) 0.1 10*3/uL Normal 0.0-0.2 [facility] Comment on above: Order Comment: CALL [place] [facility] tel. [phone], called hgb to ramila oseguera rn on 1w by scbHematology results called to and read back by ramila june on 1w, 12/27/201706:44, by BONSA Basophils/100 WBC Auto (Bld) 0.7 % Normal [facility] Comment on above: Order Comment: CALL [place] [facility] tel. [phone], called hgb to ramila oseguera rn on 1w by scbHematology results called to and read back by ramila june on 1w, 12/27/201706:44, by BONSA Eosinophils Auto #/vol (Bld) 0.0 10*3/uL Normal 0.0-0.7 [facility] Comment on above: Order Comment: CALL [place] [facility] tel. [phone], called hgb to ramila oseguera rn on 1w by scbHematology results called to and read back by ramila oseguera on w, 12/27/201706:44, by BONSA Eosinophils/100 WBC Auto (Bld) 0.4 % Normal [facility] Comment on above: Order Comment: CALL [place] [facility] tel. [phone], called hgb to ramila oseguera rn on 1w by scbHematology results called to and read back by ramila june on 1w, 12/27/201706:44, by BONSA Erythrocyte distribution width Auto Ratio (RBC) 19.0 % Critically high 11.5-14.5 [facility] Comment on above: Order Comment: CALL [place] [facility] tel. [phone], called hgb to ramila oseguera rn on 1w by scbHematology results called to and read back by ramila june on 1w, :44, by BONSA Hematocrit Auto Volume Fraction (Bld) 19.7 % Critically low 37.0-47.0 [facility] Comment on above: Order Comment: CALL [place] [facility] tel. [phone], called hgb to ramila june rn on 1w by scbHematology results called to and read back by ramila june on 1w, :44, by BONSA Hemoglobin mass conc (Bld) 6.6 g/dL Critically low 12.0-16.0 [facility] Comment on above: Order Comment: CALL [place] [facility] tel. [phone], called hgb to ramila june rn on 1w by scbHematology results called to and read back by ramila june on 1w, :44, by BONSA Result Comment: veri fied by repeat Lymphocytes Auto #/vol (Bld) 0.8 10*3/uL Low 1.0-4.8 [facility] Comment on above: Order Comment: CALL [address] tel. [phone], called hgb to ramila june rn on 1w by scbHematology results called to and read back by ramila june on 1w, :44, by BONSA Lymphocytes/100 WBC Auto (Bld) 9.0 % Normal [facility] Comment on above: Order Comment: CALL [address] tel. [phone], called hgb to ramila june rn on 1w by scbHematology results called to and read back by ramila june on 1w, :44, by BONSA MCH Auto Entitic mass (RBC) 26.7 pg Low 27.0-31.3 [facility] Comment on above: Order Comment: CALL [place] [facility] tel. [phone], called hgb to ramila oseguera rn on 1w by scbHematology results called to and read back by ramila june on 1w, :44, by BONSA MCHC Auto mass conc (RBC) 33.3 % Normal 33.0-37.0 [facility] Comment on above: Order Comment: CALL [place] [facility] tel. [phone], called hgb to ramila oseguera rn on 1w by scbHematology results called to and read back by ramila june on 1w, 12/27/201706:44, by BONSA MCV Auto Entitic volume (RBC) 80.1 fL Low 82.0-100.0 [facility] Comment on above: Order Comment: CALL [place] [facility] tel. [phone], called hgb to ramila oseguera rn on 1w by scbHematology results called to and read back by ramila june on 1w, :44, by BONSA Monocytes Auto #/vol (Bld) 0.5 10*3/uL Normal 0.2-0.8 [facility] Comment on above: Order Comment: CALL [place] [facility] tel. [phone], called hgb to ramila oseguera rn on 1w by scbHematology results called to and read back by ramila june on 1w, :44, by BONSA Monocytes/100 WBC Auto (Bld) 5.4 % Normal [facility] Comment on above: Order Comment: CALL [place] [facility] tel. [phone], called hgb to ramila oseguera rn on 1w by scbHematology results called to and read back by ramila june on 1w, :44, by BONSA Neutrophils Auto #/vol (Bld) 7.1 10*3/uL Critically high 1.4-6.5 [facility] Comment on above: Order Comment: CALL [place] [facility] tel. [phone], called hgb to ramila oseguera rn on 1w by scbHematology results called to and read back by ramila june on 1w, :44, by BONSA Neutrophils/100 WBC Auto (Bld) 84.5 % Normal [facility] Comment on above: Order Comment: CALL [place] [facility] tel. [phone], called hgb to ramila oseguera rn on 1w by scbHematology results called to and read back by ramila june on 1w, 11/12/887568:44, by BONSA Platelets Auto #/vol (Bld) 195 10*3/uL Normal 130-400 [facility] Comment on above: Order Comment: CALL [place] LC1W tel. [phone], called hgb to ramila oseguera rn on 1w by scbHematology results called to and read back by ramila oseguera on 1w, 12/27/201706:44, by BONSA RBC Auto #/vol (Bld) 2.46 10*6/uL Low 4.20-5.40 [facility] Comment on above: Order Comment: CALL [place] LC1W tel. [phone], called hgb to ramila oseguera rn on 1w by scbHematology results called to and read back by ramila oseguera on 1w, 12/27/201706:44, by BONSA WBC Auto #/vol (Bld) 8.4 10*3/uL Normal 4.8-10.8 [facility] Comment on above: Order Comment: CALL [place] 1 tel. [phone], called hgb to ramila oseguera rn on 1w by scbHematology results called to and read back by ramila oseguera on 1w, 12/27/201706:44, by RAYSHAWN Culture, Blood 2on 8 Culture, Blood 2 OR DERED BY: LESLIE PENALOZA: Blood COLLECTED: 12/31/17 00:40ANTIBIOTICS AT RADHA.: RECEIVED : 12/31/17 01:26CALL [place] LC4W tel. [phone],Blood culture results called to and read back by Henri Christine, 01/01/2018 13:30, by Fely, Blood 2 INTERIM 01/02/18 08:16 Gram stain aerobic bottle Gram negative rods 1 out of 2 blood cultures Further results to follow POSITIVE for Gram negative arminda ID and sensitivity to follow Normal [facility] IR FLUORO GUIDED CVA DEVICE PLACEMENTon [...] sheath was placed over the guidewire. A 4-[place] 44 cm single lumen PICC was advanced [...] by:FRANCO Santamariaigned by:Gordon Hinton MD01/10/inal result Normal [facility] IR PICC WO SQ PORT/PUMP > [...] sheath was placed over the guidewire. A 4-[place] 44 cm single lumen PICC was advanced [...] by:FRANCO Santamariaigned by:Gordon Hinton MD01/10/inal result Normal [facility] IR ULTRASOUND GUIDANCE VASCU LAR ACCESSon 12-31-2017 [...] sheath was placed over the guidewire. A 4-[place] 44 cm single lumen PICC was advanced [...] by:FRANCO Santamariaigned by:Gordon Hinton MD01/10/18Final result Normal [facility] Basic Metabolic Panel Reflex Mgon 12-30-2017 Calcium mass conc 8.4 mg/dL Low 8.6-10.2 [facility] Chloride molar conc 107 mmol/L Normal 98-107 [facility] CO2 molar conc 24 mmol/L Normal 22-29 [facility] Creatinine mass conc 0.73 mg/dL Normal 0.50-0.90 [facility] GFR/1.73 sq M predicted among blacks MDRD vol rate/area (S/P/Bld) mL/min/{1.73_m2} Normal >60 [facility] Comment on above: Result Comment: >60 mL/min/1.73m2 EGFR, calc. for ages 18 and older using theMDRD formula (not corrected for weight), is valid for stablerenal function. GFR/1.73 sq M.predicted MDRD vol rate/area mL/min/{1.73_m2} Normal >60 [facility] Comment on above: Result Comment: >60 mL/min/1.73m2 EGFR, calc. for ages 18 and older using theMDRD formula (not corrected for weight), is valid for stablerenal function. Glucose mass conc 82 mg/dL Normal 74-109 [facility] Potassium reflex Mg 4.8 mEq/L Normal 3.5-5.1 [facility] Sodium molar conc 140 mmol/L Normal 132-144 [facility] Urea nitrogen mass conc 8 mg/dL Normal 6-20 [facility] Anion gap 3 molar conc 9 mmol/L Normal 7-13 [facility] Body Fluid Cell Counton 12-16 Atypical Lymphs 3 % Normal [facility] Eosinophils/100 WBC Auto (Bld) 1 % Normal [facility] Lymphocytes/100 WBC Auto (Bld) 8 % Normal [facility] Mesothelials 50 % Normal [facility] Monocytes/100 WBC Auto (Bld) 20 % Normal [facility] Neutrophils/100 WBC Auto (Bld) 18 % Normal [facility] CBC With Platelet and Differ entialon 12-30-2017 Basophils Auto #/vol (Bld) 0.0 10*3/uL Normal 0.0-0.2 [facility] Comment on above: Order Comment: CALL Murdock 4 tel. [phone],h and h results called to and read back by es perdomo on 4w / scb,12/30/2017 09:51, by BONSA Basophils/100 WBC Auto (Bld) 1.0 % Normal [facility] Comment on above: Order Comment: CALL Murdock LC4W tel. [phone],h and h results called to and read back by es perdomo on 4w / scb,12/30/2017 09:51, by BONSA Eosinophils Auto #/vol (Bld) 0.1 10*3/uL Normal 0.0-0.7 [facility] Comment on above: Order Comment: CALL Murdock LC4W tel. [phone],h and h results called to and read back by es perdomo on 4w / scb,12/30/2017 09:51, by BONSA Eosinophils/100 WBC Auto (Bld) 1.8 % Normal [facility] Comment on above: Order Comment: CALL Murdock LC4W tel. [phone],h and h results called to and read back by es perdomo on 4w / scb,12/30/2017 09:51, by BONSA Erythrocyte distribution width Auto Ratio (RBC) 18.8 % Critically high 11.5-14.5 [facility] Comment on above: Order Comment: CALL Murdock LC4W tel. [phone],h and h results called to and read back by es perdomo on 4w / scb,12/30/2017 09:51, by BONSA Hematocrit Auto Volume Fraction (Bld) 20.8 % Critically low 37.0-47.0 [facility] Comment on above: Order Comment: CALL Murdock LC4W tel. [phone],h and h results called to and read back by es perdomo on 4w / scb,12/30/2017 09:51, by BONSA Hemoglobin mass conc (Bld) 7.0 g/dL Critically low 12.0-16.0 [facility] Comment on above: Order Comment: CALL Murdock LC4W tel. [phone],h and h results called to and read back by es perdomo on 4w / scb,12/30/2017 09:51, by BONSA Lymphocytes Auto #/vol (Bld) 1.0 10*3/uL Normal 1.0-4.8 [facility] Comment on above: Order Comment: CALL Murdock LC4W tel. [phone],h and h results called to and read back by es perdomo on 4w / scb,12/30/2017 09:51, by BONSA Lymphocytes/100 WBC Auto (Bld) 20.2 % Normal [facility] Comment on above: Order Comment: CALL Murdock LC4W tel. [phone],h and h results called to and read back by es perdomo on 4w / scb,12/30/2017 09:51, by BONSA MCH Auto Entitic mass (RBC) 26.8 pg Low 27.0-31.3 [facility] Comment on above: Order Comment: CALL Murdock LC4W tel. [phone],h and h results called to and read back by es perdomo on 4w / scb,12/30/2017 09:51, by BONSA MCHC Auto mass conc (RBC) 33.9 % Normal 33.0-37.0 [facility] Comment on above: Order Comment: CALL Murdock LC4W tel. [phone],h and h results called to and read back by es perdomo on 4w / scb,12/30/2017 09:51, by BONSA MCV Auto Entitic volume (RBC) 79.1 fL Low 82.0-100.0 [facility] Comment on above: Order Comment: CALL Murdock LC4W tel. [phone],h and h results called to and read back by es perdomo on 4w / scb,12/30/2017 09:51, by BONSA Monocytes Auto #/vol (Bld) 0.2 10*3/uL Normal 0.2-0.8 [facility] Comment on above: Order Comment: CALL Murdock LC4W tel. [phone],h and h results called to and read back by es perdomo on 4w / scb,12/30/2017 09:51, by BONSA Monocytes/100 WBC Auto (Bld) 4.8 % Normal [facility] Comment on above: Order Comment: CALL Murdock LC4W tel. [phone],h and h results called to and read back by es perdomo on 4w / scb,12/30/2017 09:51, by BONSA Neutrophils Auto #/vol (Bld) 3.7 10*3/uL Normal 1.4-6.5 [facility] Comment on above: Order Comment: CALL Murdock LC4W tel. [phone],h and h results called to and read back by es perdomo on 4w / scb,12/30/2017 09:51, by BONSA Neutrophils/100 WBC Auto (Bld) 72.2 % Normal [facility] Comment on above: Order Comment: CALL Murdock LC4W tel. [phone],h and h results called to and read back by es perdomo on 4w / scb,12/30/2017 09:51, by BONSA Platelets Auto #/vol (Bld) 231 10*3/uL Normal 130-400 [facility] Comment on above: Order Comment: CALL Murdock LC4W tel. [phone],h and h results called to and read back by es perdomo on 4w / scb,12/30/2017 09:51, by BONSA RBC Auto #/vol (Bld) 2.62 10*6/uL Low 4.20-5.40 [facility] Comment on above: Order Comment: CALL Murdock LC4W tel. [phone],h and h results called to and read back by es perdomo on 4w / scb,12/30/2017 09:51, by BONSA WBC Auto #/vol (Bld) 5.1 10*3/uL Normal 4.8-10.8 [facility] Comment on above: Order Comment: CALL Murdock LC4W tel. [phone],h and h results called to and read [...] by:FRANCO Mcmanusigned by:Huan Funes MD12/30/17inal result Normal [facility] Miscellaneous test 1on 12-29-2017 Miscellaneous Test [address] [facility] Comment on above: Order Comment: Terri gonzales has been rescheduled by VIVIEN at 12/26/2017 14:59. Reason:patient refusing until she gets pain meds Result Comment: Test name Result Flag Units RefIntvl HIV-1,2 Combo Antigen/Antibody Negative NegativeThe specimen was non-reactive for HIV-1 and HIV-2 antibodies, and [id number]. Based on this non-reactive screen result, further reflexivetestingwas not indicated and was, therefore, not performedINTERPRETIVE INFORMATION: HIV-1,2 Combo Ag/Ab EIA w/ReflexThis assay should not be used for blood donor screening, associatedre-entryprotocols, or for screening Human Cell, Tissues and Cellular andTissue-BasedProducts (HCT/P).Performed by [facility],[address] [place] [id number] kgg.[employer], Artur Agustin MD - Lab. Director Protein mass conc 3422056 g/dL [facility] Comment on above: [...] 12/29/17 15:37 Supplemental ReportCALL Murdock LC4W tel. [phone],MRSA results called to and read back by [...] Vancomycin <=0.5 S S=SUSCEPTIBLE I=INTERMEDIATE R=RESISTANT Normal [facility] Bacterial susceptibility panel by Minimum inhibitory concentration (ISRA) ORDERED BY: YOLANDA POWELL: Bronchial Washing Body Fluid COLLECTED: 12/29/17 14:43ANTIBIOTICS AT RADHA.: RECEIVED : 12/29/17 15:42CALL Murdock 4 tel. [phone],MRSAresults called to and read back by Nanci, [...] ole <=20 S S=SUSCEPTIBLE I=INTERMEDIATE R=RESISTANT Normal [facility] Body Fluid Cell Counton 12-16 Appearance Nom (U) Hazy Normal [facility] Clot Check see below [facility] Comment on above: Result Comment: No C lots Seen Color Nom (U) Colorless Normal [facility] Fluid Source Pleural Normal [facility] Total Nucleated Cells 341 /cumm [facility] Total Red Blood Cells 2888 /cumm [facility] Total Cells Counted for Diff 100 [facility] CBC With Platelet No Differe ntialon 12-29-2017 Erythrocyte distribution width Auto Ratio (RBC) 18.5 % Critically high 11.5-14.5 [facility] Comment on above: Order Comment: Terri gonzales has been rescheduled by VIVIEN at 12/26/2017 14:59. Reason:patient refusing until she gets pain meds Hematocrit Auto Volume Fraction (Bld) 18.5 % Critically low 37.0-47.0 [facility] Comment on above: Order Comment: Terri gonzales has been rescheduled by VIVIEN at 12/26/2017 14:59. Reason:patient refusing until she gets pain meds Hemoglobin mass conc (Bld) 6.2 g/dL Critically low 12.0-16.0 [facility] Comment on above: Order Comment: Terri gonzales has been rescheduled by SAUDE at 12/26/2017 14:59. Reason:patient refusing until she gets pain meds MCH Auto Entitic mass (RBC) 26.6 pg Low 27.0-31.3 [facility] Comment on above: Order Comment: Terri gonzales has been rescheduled by SAUDE at 12/26/2017 14:59. Reason:patient refusing until she gets pain meds MCHC Auto mass conc (RBC) 33.6 % Normal 33.0-37.0 [facility] Comment on above: Order Comment: Terri gonzales has been rescheduled by SAUDE at 12/26/2017 14:59. Reason:patient refusing until she gets pain meds MCV Auto Entitic volume (RBC) 79.0 fL Low 82.0-100.0 [facility] Comment on above: Order Comment: Terri gonzales has been rescheduled by SAUDE at 12/26/2017 14:59. Reason:patient refusing until she gets pain meds Platelets Auto #/vol (Bld) 173 10*3/uL Normal 130-400 [facility] Comment on above: Order Comment: Terri gonzales has been rescheduled by SAUDE at 12/26/2017 14:59. Reason:patient refusing until she gets pain meds RBC Auto #/vol (Bld) 2.34 10*6/uL Low 4.20-5.40 [facility] Comment on above: Order Comment: Terri gonzales has been rescheduled by SAUDE at 12/26/2017 14:59. Reason:patient refusing until she gets pain meds WBC Auto #/vol (Bld) 3.5 10*3/uL Low 4.8-10.8 [facility] Comment on above: Order Comment: Terri gonzales has been rescheduled by SAUDE at 12/26/2017 14:59. Reason:patient refusing until she gets pain meds CONSULTATIONon 12-29-[address] [address] CONSULTATIONPATIENT NAME: ALESHA KENNEY : 1985MED REC NO: [id number] ROOM:ACCOUNT NO: [id number] ADMIT DATE: 12/25/2017PROVIDER: NEGRITA RaiONSULT DATE: 12/29/2017Consultation from Dr. Dominga Powell.REASON FOR [...] evaluation.Thank you Dr. Powell for this consult.AYANA HERRERA, MDD: 12/29/2017 18:06:42 GM/[id number]#: [id number] Doc#: [id number]: MD Dominga Rai MD [facility] Culture, Respiratoryon 12-29 Culture, Respiratory ORDERED BY: YOLANDA POWELL: Bronchial Washing Left Lower Lobe COLLECTED: 12/29/17 15:11ANTIBIOTICS AT RADHA.: RECEIVED : 12/29/17 15:41CALL Murdock LC4W tel. [phone],MRSA results called to and read back by Nanci, 01/01/2018 12:23, by KEVGram Stain Direct FINAL 12/30/17 10:54 Moderate WBC's, No organisms seenCulture, Respiratory FINAL 01/01/18 12:24 Light growth Staph aureus MRSA CONTACT PRECAUTIONS INDICATED PBP2= POSITIVE Previous value was 01 Staph aureus MSSA, verified by KEV at 13:14 on 12/31/17 [facility] Culture, Respiratory ORDERED BY: YOLANDA POWELL: [...] Gram negative arminda ID to follow Normal [facility] Culture, Respiratory ORDERED BY: YOLANDA POWELL: Bronchial Washing Body Fluid COLLECTED: 12/29/17 14:43ANTIBIOTICS AT RADHA.: RECEIVED : 12/29/17 15:42Gram Stain Direct FINAL 12/30/17 10:59 Few WBC's Few epithelial cells Few Mixed Respiratory FloraCulture, Respiratory INTERIM 12/31/17 13:15 Light growth Gram negative arminda ID and sensitivity to follow Rare growth Serratia marcescens Refer to previous sensitivity Heavy growth Staph aureus MSSA Normal [facility] Cytology Medical Specimenon 12-29-2017 Cytology Medical Specimen Invalid Interpretation Code [facility] Comment on above: Result Comment: [place] [id number] [phone] CYTOLOGY REPORTPatient Name: ALESHA KENNEY Accession No: [id number] Age Sex: 1985 32 Y/ F Location: [id number] No: [id number] Collected: 12/29/2017Med Rec No: [id number] Received: 12/30/2017Attend Phys: NEENA DUPONT Completed 01/03/2018Perform [...] ml fixed1 monolayer1 cell blockhx Not givenCPT: 89676 X2 68170 X2 Screened by: Irasema CAZARES M.D. 01/03/2018 [...] by:FRANCO Mittaligned by:Keith Durham MD12/29/17inal result Normal [facility] HCV by Quant NAATyshawn 12-30-19 18 HCV Qnt by NAAT IU/mL Not Detected Normal [facility] Comment on above: Order Comment: Terir utklaudia has been rescheduled by SAUDE at 12/26/2017 14:59. Reason:patient refusing until she gets pain meds HCV Qnt by NAAT log IU/mL Not Detected Normal [facility] Comment on above: Order Comment: Terri utklaudia has been rescheduled by SAUDE at 12/26/2017 14:59. Reason:patient refusing until she gets pain meds Prothrombin Timeon 8 INR Coag RelTime (PPP) 1.1 {INR} Normal [facility] Comment on above: Result Comment: Dimitrios [...] Coag time (PPP) 11.4 s Normal 9.6-12.3 [facility] Quantiferon-TB Gold Plus, 1- Tubeon 12-29-2017 Quantiferon Mitogen minus NIL 0.52 IU/mL Normal [facility] Comment on above: Order Comment: Terri gonzales has been rescheduled by SAUDE at 12/26/2017 14:59. Reason:patient refusing until she gets pain meds Quantiferon NIL 0.05 IU/mL Normal [facility] Comment on above: Order Comment: Terri gonzales has been rescheduled by SAUDE at 12/26/2017 14:59. Reason:patient refusing until she gets pain meds Result Comment: Perf ormed by [facility],[address] [place] [id number] fou.[employer], Artur Agustin MD - Lab. Director Quantiferon PlusTB1 minus NIL 0.00 IU/mL Normal 0.00-0.34 [facility] Comment on above: Order Comment: Terri gonzales has been rescheduled by SAUDE at 12/26/2017 14:59. Reason:patient refusing until she gets pain meds Quantiferon PlusTB2 minus NIL 0.00 IU/mL Normal 0.00-0.34 [facility] Comment on above: Order Comment: Terri gonzales has been rescheduled by SAUDE at 12/26/2017 14:59. Reason:patient refusing until she gets pain meds Quantiferon TB Gold Plus Negative Normal Negative [facility] Comment on above: Order Comment: Terri [...] CD4+ lymphocyte reactivity, specifically stimulated by the [id number]. The TB2-NIL tube detects both CD4+ and CD8+ lymphocytereactivity,stimulated by TB2 antigens. An overall Negative result does notcompletelyrule out TB infection.A false-positive result in the absence of other clinical evidence of TBinfection is not uncommon. Refer to: Updated Guidelines for UsingInterferonGamma Release Assays to Detect Mycobacterium tuberculosis Infection ---[place], 2010(http://www.cdc.gov/mmwr/preview/mmwrhtml/wz3227j7.htm),for more information concerning test performance in low-prevalencepopulations and use in occupational screening. CBC With Platelet No Differe ntialon 12-28-2017 Erythrocyte distribution width Auto Ratio (RBC) 18.9 % Critically high 11.5-14.5 [facility] Comment on above: Order Comment: Terri gonzales has been rescheduled by SATORI at 12/26/2017 14:59. Reason:patient refusing until she gets pain meds Hematocrit Auto Volume Fraction (Bld) 21.0 % Critically low 37.0-47.0 [facility] Comment on above: Order Comment: Terri gonzales has been rescheduled by SATORI at 12/26/2017 14:59. Reason:patient refusing until she gets pain meds Hemoglobin mass conc (Bld) 6.8 g/dL Critically low 12.0-16.0 [facility] Comment on above: Order Comment: Terri gonzales has been rescheduled by VIVIEN at 12/26/2017 14:59. Reason:patient refusing until she gets pain meds Result Comment: call ed h and h to lavinia chacon on 1w MCH Auto Entitic mass (RBC) 26.0 pg Low 27.0-31.3 [facility] Comment on above: Order Comment: Terri gonzales has been rescheduled by SAUDE at 12/26/2017 14:59. Reason:patient refusing until she gets pain meds MCHC Auto mass conc (RBC) 32.6 % Low 33.0-37.0 [facility] Comment on above: Order Comment: Terri gonzales has been rescheduled by SAUDE at 12/26/2017 14:59. Reason:patient refusing until she gets pain meds MCV Auto Entitic volume (RBC) 79.9 fL Low 82.0-100.0 [facility] Comment on above: Order Comment: Terri gonzales has been rescheduled by SAUDE at 12/26/2017 14:59. Reason:patient refusing until she gets pain meds Platelets Auto #/vol (Bld) 147 10*3/uL Normal 130-400 [facility] Comment on above: Order Comment: Terri gonzales has been rescheduled by SAUDE at 12/26/2017 14:59. Reason:patient refusing until she gets pain meds RBC Auto #/vol (Bld) 2.63 10*6/uL Low 4.20-5.40 [facility] Comment on above: Order Comment: Terri gonzales has been rescheduled by SAUDE at 12/26/2017 14:59. Reason:patient refusing until she gets pain meds WBC Auto #/vol (Bld) 4.2 10*3/uL Low 4.8-10.8 [facility] Comment on above: Order Comment: Terri gonzales has been rescheduled by SAUDE at 12/26/2017 14:59. Reason:patient refusing until she gets pain meds Hepatitis B Core Abs, Totalo n 12-28-2017 Hepatitis B Core Abs, Total Positive Abnormal Negative [facility] Comment on above: Order Comment: Terri [...] Tissues and Cellular andTissue-Based Products (HCT/P).Performed by [facility],[address] [facility], [facility] [place] [address] bks.[employer], Artur Agustin MD - Lab. Director Transferrinon 12-28-2017 Transferrin mass conc 135 mg/dL Low 200-400 [facility] Comment on above: Order Comment: Colle ction has been rescheduled by SATORI at 12/26/2017 14:59. Reason:patient refusing until she gets pain meds Result Comment: Perf ormed by [facility],[address], [facility] [place] [address] man.[employer], Artur Agustin MD - Lab. Director XR [...] pleural effusion.Interpreted by:Chandrakant Montoya, DOSigned by:Chandrakant Montoya, DO18Final result Normal [facility] CBC With Platelet and Differ entialon 12-27-2017 Anisocytosis Auto Ql (Bld) 2+ Normal [facility] Comment on above: Order Comment: CALL Murdock LC1W tel. [phone], called hgb to ramila oseguera rn on 1w by scbHematology results called to and read back by ramila oesguera on 1w, 12/27/201706:44, by BONSA Hypochromia 1+ Normal [facility] Comment on above: Order Comment: CALL Murdock LC1W tel. [phone], called hgb to ramila oseguera rn on 1w by scbHematology results called to and read back by ramila june on 1w, :44, by BONSA Lymphocytes Auto #/vol (Bld) 0.8 10*3/uL Low 1.0-4.8 [facility] Comment on above: Order Comment: CALL Murdock 1 tel. [phone], called hgb to ramila oseguera rn on 1w by scbHematology results called to and read back by ramila june on 1w, :44, by BONSA Lymphocytes/100 WBC Auto (Bld) 22.0 % Normal [facility] Comment on above: Order Comment: CALL Murdock [facility] tel. [phone], called hgb to ramila june rn on 1w by scbHematology results called to and read back by ramila june on 1w, :44, by BONSA Microcytic 2+ Normal [facility] Comment on above: Order Comment: CALL Murdock [facility] tel. [phone], called hgb to ramila june rn on 1w by scbHematology results called to and read back by ramila june on 1w, :44, by BONSA Monocytes Auto #/vol (Bld) 0.1 10*3/uL Low 0.2-0.8 [facility] Comment on above: Order Comment: CALL Murdock 1 tel. [phone], called hgb to ramila oseguera rn on 1w by scbHematology results called to and read back by ramila june on 1w, :44, by BONSA Monocytes/100 WBC Auto (Bld) 3.8 % Normal [facility] Comment on above: Order Comment: CALL Murdock 1W tel. [phone], called hgb to ramila oseguera rn on 1w by scbHematology results called to and read back by ramila june on 1w, :44, by BONSA Neutrophils Auto #/vol (Bld) 2.7 10*3/uL Normal 1.4-6.5 [facility] Comment on above: Order Comment: CALL Murdock 1W tel. [phone], called hgb to ramila oseguera rn on 1w by scbHematology results called to and read back by ramila june on 1w, :44, by BONSA Neutrophils/100 WBC Auto (Bld) 74.0 % Normal [facility] Comment on above: Order Comment: CALL Murdock 1 tel. [phone], called hgb to ramila oseguera rn on 1w by scbHematology results called to and read back by ramila june on 1w, :44, by RAYSHAWN Platelet Slide Review Decreased Normal [facility] Comment on above: Order Comment: CALL Murdock 1 tel. [phone], called hgb to ramila oseguera rn on 1w by scbHematology results called to and read back by ramila june on 1w, :44, by RAYSHAWN Poikilocytosis 1+ [facility] Comment on above: Order Comment: CALL Murdock 1 tel. [phone], called hgb to ramila oseguera rn on 1w by scbHematology results called to and read back by ramila june on 1w, :44, by BONSA Basophils Auto #/vol (Bld) 0.0 10*3/uL Normal 0.0-0.2 [facility] Comment on above: Order Comment: CALL Murdock 1W tel. [phone], called hgb to ramila oseguera rn on 1w by scbHematology results called to and read back by ramila june on 1w, :44, by BONSA Basophils/100 WBC Auto (Bld) 1.0 % Normal [facility] Comment on above: Order Comment: CALL Murdock LC1W tel. [phone], called hgb to ramila oseguera rn on 1w by scbHematology results called to and read back by ramila june on 1w, :44, by BONSA Eosinophils Auto #/vol (Bld) 0.0 10*3/uL Normal 0.0-0.7 [facility] Comment on above: Order Comment: CALL Murdock LC1W tel. [phone], called hgb to ramila oseguera rn on 1w by scbHematology results called to and read back by ramila june on 1w, :44, by BONSA Eosinophils/100 WBC Auto (Bld) 1.1 % Normal [facility] Comment on above: Order Comment: CALL Murdock [facility] tel. [phone], called hgb to ramila oseguera rn on 1w by scbHematology results called to and read back by ramila june on 1w, :44, by BONSA Erythrocyte distribution width Auto Ratio (RBC) 18.8 % Critically high 11.5-14.5 [facility] Comment on above: Order Comment: CALL Murdock [facility] tel. [phone], called hgb to ramila june rn on 1w by scbHematology results called to and read back by ramila june on 1w, :44, by BONSA Hematocrit Auto Volume Fraction (Bld) 21.1 % Low 37.0-47.0 [facility] Comment on above: Order Comment: CALL Murdock [facility] tel. [phone], called hgb to ramila june rn on 1w by scbHematology results called to and read back by ramila june on 1w, :44, by BONSA Hemoglobin mass conc (Bld) 6.9 g/dL Critically low 12.0-16.0 [facility] Comment on above: Order Comment: CALL Murdock [facility] tel. [phone], called hgb to ramila june rn on 1w by scbHematology results called to and read back by ramila june on 1w, :44, by BONSA Result Comment: call ed hgb to ramila june on 1w / scb MCH Auto Entitic mass (RBC) 26.5 pg Low 27.0-31.3 [facility] Comment on above: Order Comment: [facility] [phone], called hgb to ramila june rn on 1w by scbHematology results called to and read back by ramila june on 1w, :44, by BONSA MCHC Auto mass conc (RBC) 32.8 % Low 33.0-37.0 [facility] Comment on above: Order Comment: CALL Mur[facility] [facility] tel. [phone], called hgb to ramila oseguera rn on 1w by scbHematology results called to and read back by ramila oseguera on 1w, 12/27/201706:44, by BON MCV Auto Entitic volume (RBC) 80.9 fL Low 82.0-100.0 [facility] Comment on above: Order Comment: CALL [facility] tel. [phone], called hgb to ramila oseguera rn on 1w by scbHematology results called to and read back by ramila oseguera on 1w, :44, by BONSA Platelets Auto #/vol (Bld) 122 10*3/uL Low 130-400 [facility] Comment on above: Order Comment: CALL [facility] tel. [phone], called hgb to ramila oseguera rn on 1w by scbHematology results called to and read back by ramila oseguera on 1w, :44, by BONSA RBC Auto #/vol (Bld) 2.61 10*6/uL Low 4.20-5.40 [facility] Comment on above: Order Comment: CALL [facility] tel. [phone], called hgb to ramila oseguera rn on 1w by scbHematology results called to and read back by ramila oseguera on 1w, :44, by BONSA WBC Auto #/vol (Bld) 3.6 10*3/uL Low 4.8-10.8 [facility] Comment on above: Order Comment: CALL [place] tel. [phone], called hgb to ramila oseguera rn on 1w by scbHematology results called to and read back by ramila oseguera on 1w, :44, by BON Comprehensive Metabolic Pane l reflex Mgon 12-27-2017 Albumin mass conc 2.4 g/dL Low 3.9-4.9 [facility] ALP enzyme act/vol 40 U/L Normal 40-130 [facility] ALT enzyme act/vol U/L Normal 0-33 [facility] Anion gap 3 molar conc 11 mmol/L Normal 7-13 [facility] AST enzyme act/vol 6 U/L Normal 0-35 [facility] Bilirubin mass conc mg/dL Normal 0.0-1.2 [facility] Calcium mass conc 7.7 mg/dL Low 8.6-10.2 [facility] Chloride molar conc 110 mmol/L Critically high 98-107 [facility] CO2 molar conc 20 mmol/L Low 22-29 [facility] Creatinine mass conc 0.64 mg/dL Normal 0.50-0.90 [facility] GFR/1.73 sq M predicted among blacks MDRD vol rate/area (S/P/Bld) mL/min/{1.73_m2} Normal >60 [facility] Comment on above: Result Comment: >60 mL/min/1.73m2 EGFR, calc. for ages 18 and older using theMDRD formula (not corrected for weight), is valid for stablerenal function. GFR/1.73 sq M.predicted MDRD vol rate/area mL/min/{1.73_m2} Normal >60 [facility] Comment on above: Result Comment: >60 mL/min/1.73m2 EGFR, calc. for ages 18 and older using theMDRD formula (not corrected for weight), is valid for stablerenal function. Globulin Calculated mass conc (S) 3.9 g/dL Critically high 2.3-3.5 [facility] Glucose mass conc 115 mg/dL Critically high 74-109 [facility] Potassium reflex Mg 3.8 mEq/L Normal 3.5-5.1 [facility] Protein mass conc 6.3 g/dL Low 6.4-8.1 [facility] Sodium molar conc 141 mmol/L Normal 132-144 [facility] Urea nitrogen mass conc 10 mg/dL Normal 6-20 [facility] Ferritinon 12-27-2017 Ferritin [Mass/volume] in Serum or Plasma 152.3 ng/mL Critically high 13.0-150.0 [facility] Iron Profileon 12-27-2017 % Saturation 8 % Low 11-46 [facility] Iron Binding Capacity 132 ug/dL Low 178-450 [facility] Iron mass conc 11 ug/dL Low 37-145 [facility] RBC LRon 12-27-2017 RBC Auto #/vol (Bld) PATIENT: PABLITO Jackson LOC: [id number]# : [id number] : 1985 SEX: FORDERED BY: KIAH NEENA ORDERED : 12/27/2017 07:06 COLLECTED: 12/27/2017 07:20ORDER : [id number] RECEIVED : 12/27/2017 07:27 -----TEST NAME RESULT UNITS RANGES ABN FL STRBC LR [id number] RBC LR W0 F = Normal [facility] Retic Automatedon 12-27-2017 Hematocrit Auto Volume Fraction (Bld) 21.1 % Low 37.0-47.0 [facility] Retic Abs 0.066 m/cumm Normal 0.022-0.11 [facility] Reticulocyte Count Automated 2.5 % Critically high 0.6-2.2 [facility] Type and Screen Capture 3 sc rn cellon 12-27-2017 Type and Screen Capture 3 scrn cell PATIENT: PABLITO Jackson LOC: [id number]# : [id number] : 1985 SEX: FORDERED BY: KIAH CHAUDHARY ORDERED : 12/27/2017 07:06 COLLECTED: 12/27/2017 07:20ORDER : [id number] RECEIVED : 12/27/2017 07:27 -----TEST NAME RESULT UNITS RANGES ABN FL STABORH Capture A POS FAntibody 3 Cell Scrn Captu NEG F @12/27/17 10:58 by BEBETO: ANTIBODY SCREEN PERFORMED ON BACKUP CAPTURE. ------- Normal [facility] Bacterial susceptibility fox el by Elvia [...] ole <=20 S S=SUSCEPTIBLE I=INTERMEDIATE R=RESISTANT Normal [facility] CT CHEST W CONTRASTon 2017 CT [...] tissue density, adenopathy.There is trace pericardial effusion.The [id number] the gallbladder surgically absent.IMPRESSION: FINDINGS DESCRIBED ABOVE. [...] by:FRANCO Santamariaigned by:Gordon Hinton MD12/26/17inal result Normal [facility] Culture, Blood 2on 8 Culture, Blood 2 OR DERED BY: GALLITO POLANCO: Blood COLLECTED: 12/26/17 15:49ANTIBIOTICS AT RADHA.: RECEIVED : 12/26/17 15:56Culture, Blood 2 FINAL 12/31/17 16:15 No growth after 5 days of incubation. Normal [facility] Culture, Respiratoryon 12-26 Culture, Respiratory ORDERED BY: GALLITO POLANCO: Sputum Expectorated COLLECTED: 12/26/17 14:45ANTIBIOTICS AT RADHA.: RECEIVED : 12/29/17 12:46Gram Stain Direct FINAL 12/29/17 16:19 Moderate WBC's Few epithelial cells Few Yeast with pseudohyphaeCulture, Respiratory INTERIM 12/30/17 11:53 Light growth Gram negative arminda ID and sensitivity to follow Moderate growth Yeast No further workup Normal [facility] Hepatitis C Antibodyon 12-26 Hepatitis C Antibody Interp REACTIVE Abnormal [facility] Comment on above: Order Comment: Colle ction has been rescheduled by VIVIEN at 12/26/2017 14:59. Reason:patient refusing until she gets pain meds Influenza A and Bon 12-27-19 18 Influenza A Antigen Negative Normal Negative [facility] Influenza B Antigen Negative Normal Negative [facility] Bacterial susceptibility fox el by MICon 12-25-2017 Bacterial susceptibility panel by Minimum inhibitory concentration (ISRA) ORDERED BY: FLOYD SNIDER: Blood Blood COLLECTED: 12/25/17 21:04ANTIBIOTICS AT RADHA.: RECEIVED : 12/25/17 21:04CALL [facility] tel. [phone],Blood Culture results called to and read back by Beena MASON, 12/26/2017 19:32, by MATNICulture, Blood FINAL 12/28/17 07:32 1 out of 2 blood cultures POSITIVE for Serratia marcescens S. marces ANTIBIOTICS ISRA Interp A moxicillin/Clavulanate >=32 R Cefepime <=1 S Ceftriaxone <=1 S Ciprofloxacin <=0.25 S Gentamicin <=1 S Trimethoprim/Sulfamethoxaz ole <=20 S S=SUSCEPTIBLE I=INTERMEDIATE R=RESISTANT Normal [facility] CBC With Platelet and Differ entialon 12-25-2017 Basophils Auto #/vol (Bld) 0.0 10*3/uL Normal 0.0-0.2 [facility] Basophils/100 WBC Auto (Bld) 0.5 % Normal [facility] Eosinophils Auto #/vol (Bld) 0.0 10*3/uL Normal 0.0-0.7 [facility] Eosinophils/100 WBC Auto (Bld) 0.2 % Normal [facility] Erythrocyte distribution width Auto Ratio (RBC) 18.9 % Critically high 11.5-14.5 [facility] Hematocrit Auto Volume Fraction (Bld) 23.6 % Low 37.0-47.0 [facility] Hemoglobin mass conc (Bld) 8.0 g/dL Low 12.0-16.0 [facility] Hypochromia PRESENT Normal [facility] Lymphocytes Auto #/vol (Bld) 1.3 10*3/uL Normal 1.0-4.8 [facility] Lymphocytes/100 WBC Auto (Bld) 16.6 % Normal [facility] MCH Auto Entitic mass (RBC) 26.5 pg Low 27.0-31.3 [facility] MCHC Auto mass conc (RBC) 33.9 % Normal 33.0-37.0 [facility] MCV Auto Entitic volume (RBC) 78.1 fL Low 82.0-100.0 [facility] Monocytes Auto #/vol (Bld) 0.5 10*3/uL Normal 0.2-0.8 [facility] Monocytes/100 WBC Auto (Bld) 6.3 % Normal [facility] Neutrophils Auto #/vol (Bld) 6.2 10*3/uL Normal 1.4-6.5 [facility] Neutrophils/100 WBC Auto (Bld) 76.4 % Normal [facility] Platelets Auto #/vol (Bld) 178 10*3/uL Normal 130-400 [facility] RBC Auto #/vol (Bld) 3.02 10*6/uL Low 4.20-5.40 [facility] WBC Auto #/vol (Bld) 8.1 10*3/uL Normal 4.8-10.8 [facility] Comprehensive Metabolic Pane thanh 12-25-2017 Albumin mass conc 3.2 g/dL Low 3.9-4.9 [facility] ALP enzyme act/vol 39 U/L Low 40-130 [facility] ALT enzyme act/vol U/L Normal 0-33 [facility] Anion gap 3 molar conc 14 mmol/L Critically high 7-13 [facility] AST enzyme act/vol 10 U/L Normal 0-35 [facility] Bilirubin mass conc 0.6 mg/dL Normal 0.0-1.2 [facility] Calcium mass conc 8.7 mg/dL Normal 8.6-10.2 [facility] Chloride molar conc 94 mmol/L Low 98-107 [facility] CO2 molar conc 24 mmol/L Normal 22-29 [facility] Creatinine mass conc 0.68 mg/dL Normal 0.50-0.90 [facility] GFR/1.73 sq M predicted among blacks MDRD vol rate/area (S/P/Bld) mL/min/{1.73_m2} Normal >60 [facility] Comment on above: Result Comment: >60 mL/min/1.73m2 EGFR, calc. for ages 18 and older using theMDRD formula (not corrected for weight), is valid for stablerenal function. GFR/1.73 sq M.predicted MDRD vol rate/area mL/min/{1.73_m2} Normal >60 [facility] Comment on above: Result Comment: >60 mL/min/1.73m2 EGFR, calc. for ages 18 and older using theMDRD formula (not corrected for weight), is valid for stablerenal function. Globulin Calculated mass conc (S) 4.4 g/dL Critically high 2.3-3.5 [facility] Glucose mass conc 120 mg/dL Critically high 74-109 [facility] Potassium molar conc 4.2 mmol/L Normal 3.5-5.1 [facility] Protein mass conc 7.6 g/dL Normal 6.4-8.1 [facility] Sodium molar conc 132 mmol/L Normal 132-144 [facility] Urea nitrogen mass conc 7 mg/dL Normal 6-20 [facility] Creatine Kinaseon 12-25-2017 CK enzyme act/vol 19 U/L Normal 0-170 [facility] Culture, Blood 2on 8 Culture, Blood 2 OR DERED BY: FLOYD SNIDER: Blood COLLECTED: 12/25/17 21:04ANTIBIOTICS AT RADHA.: RECEIVED : 12/25/17 21:04Culture, Blood 2 FINAL 12/30/17 22:15 No growth after 5 days of incubation. Normal [facility] Lactic Acidon 12-25-2017 Lactate molar conc 2.1 mmol/L Normal 0.5-2.2 [facility] Prothrombin Timeon 8 INR Coag RelTime (PPP) 1.2 {INR} Normal [facility] Comment on above: Result Comment: Dimitrios [...] Coag time (PPP) 11.8 s Normal 9.6-12.3 [facility] Troponinon 12-25-2017 Troponin I.cardiac mass conc ng/mL Normal 0.000-0.01 [facility] Comment on above: Result Comment: Meth odology by Troponin T. UR Drug Screen Rapidon 12-25 Drug Screen Comment see below Normal [facility] Comment on above: Result Comment: This method is a screening test to detect only these drugclasses as part of a medical workup. Confirmatory testingby another method should be ordered if clinically indicated. UR Amphetamines Rapid Screen Negative Normal Negative < [facility] Comment on above: Result Comment: Effe ctive: 08/30/17Methodology and/or Reference Range-Cutoff has changed. UR Barbiturates Rapid Screen Negative Normal Negative < [facility] Comment on above: Result Comment: Effe ctive: 08/30/17Methodology and/or Reference Range-Cutoff has changed. UR Benzo Rapid Screen Negative Normal Negative < [facility] Comment on above: Result Comment: Effe ctive: 08/30/17Methodology and/or Reference Range-Cutoff has changed. UR Cannabinoids Rapid Screen Negative Normal Negative < [facility] UR Cocaine Rapid Screen Negative Normal Negative < [facility] Comment on above: Result Comment: Effe ctive: 08/30/17Methodology and/or Reference Range-Cutoff has changed. UR Opiates Rapid Screen Negative Normal Negative < [facility] Comment on above: Result Comment: Effe ctive: 08/30/17Methodology and/or Reference Range-Cutoff has changed. UR PCP Rapid Screen Negative Normal Negative < [facility] UR Tricyclics Rapid Screen - Rapid Negative Normal Negative < [facility] Comment on above: Result Comment: Effe ctive: 08/30/17Methodology and/or Reference Range-Cutoff has changed. UR HCG Qualitativeon 018 HCG.beta subunit ( test) Ql (U) Negative Normal Detects [facility] Urinalysis, reflex to cultur eugenia 12-25-2017 Bilirubin Ql (U) Negative Normal Negative [facility] Clarity Nom (U) Clear Normal Clear [facility] Color Nom (U) Yellow Normal Straw/[place]it [facility] Glucose Ql (U) Negative Normal Negative [facility] Hemoglobin Test strip Ql (U) Negative Normal Negative [facility] Ketones Ql (U) Negative Normal Negative [facility] Leukocyte esterase Test strip Ql (U) Negative Normal Negative [facility] Nitrite Test strip Ql (U) Negative Normal Negative [facility] pH Test strip (U) 7.0 [pH] Normal 5.0-9.0 [facility] Protein Test strip Ql (U) Negative Normal Negative [facility] Specific gravity Relative Density (U) 1.015 Normal 1.005-1.03 [facility] Urine Reflexed to Culture Not Indicated Normal [facility] Urobilinogen Test strip Qn (U) 0.2 {Katy'U}/dL Normal < 2.0 [facility] Vital Signs Date Time Vital Sign Value Performing Clinician Facility 07-27-2024 16:09 Body height 172.7 cm Rufino Arias DPM Work Phone: [facility] 07-27-2024 16:09-0400 Body mass index (BMI) [Ratio] 47.74 kg/m2 Rufino Arias DPM Work Phone: [facility] 07-27-2024 16:090400 Body weight 142.43 kg Rufino PASTORM Work Phone: [facility] 07-27-2024 16:09-0400 Respiratory rate 18 /min Rufino Arias DPM Work Phone: [facility] 07-19-2024 13:13-0400 Body height 172.7 cm Navarro Oviedo MD Work Phone: [facility] 07-19-2024 13:13-0400 Body mass index (BMI) [Ratio] 47.74 kg/m2 Navarro Oivedo MD Work Phone: [facility] 07-19-2024 13:13-0400 Body temperature 97.3 [degF] Navarro Oviedo MD Work Phone: [facility] 07-19-2024 13:13-0400 Body weight 142.43 kg Navarro Oviedo MD Work Phone: [facility] 07-19-2024 13:13-0400 Diastolic blood pressure 72 mm[Hg] Navarro Oviedo MD Work Phone: [facility] 07-19-2024 13:13-0400 Heart rate 84 /min Navarro Oviedo MD Work Phone: [facility] 07-19-2024 13:13-0400 Respiratory rate 20 /min Navarro Oviedo MD Work Phone: [facility] 07-19-2024 13:13-0400 SaO2% (BldA) [Mass fraction] 97 % Navarro Oviedo MD Work Phone: [facility] 07-19-2024 13:13-0400 Systolic blood pressure 128 mm[Hg] Navarro Oviedo MD Work Phone: [facility] 07-13-2024 14:56-0400 Body height 172.7 cm Rufino Arias DPM Work Phone: [facility] 07-13-2024 14:56-0400 Body mass index (BMI) [Ratio] 47.74 kg/m2 Rufino Arias DPM Work Phone: [facility] 07-13-2024 14:56-0400 Body weight 142.43 kg Rufino Arias DPM Work Phone: [facility] 07-13-2024 14:56-0400 Respiratory rate 18 /min Rufino Juana DPM Work Phone: [facility] 06-26-2024 13:44-0400 Body height 172.7 cm Navarro Oviedo MD Work Phone: [facility] 06-26-2024 13:44-0400 Body mass index (BMI) [Ratio] 47.74 kg/m2 Navarro Oviedo MD Work Phone: [facility] 06-26-2024 13:44-0400 Body temperature 97.11 [degF] Navarro Oviedo MD Work Phone: [facility] 06-26-2024 13:44-0400 Body weight 142.43 kg Navarro Oviedo MD Work Phone: [facility] 06-26-2024 13:44-0400 Diastolic blood pressure 78 mm[Hg] Navarro Oviedo MD Work Phone: [facility] 06-26-2024 13:44-0400 Heart rate 66 /min Navarro Oviedo MD Work Phone: [facility] 06-26-2024 13:44-0400 Respiratory rate 22 /min Navarro Oviedo MD Work Phone: [facility] 06-26-2024 13:44-0400 SaO2% (BldA) [Mass fraction] 95 % Navarro Oviedo MD Work Phone: [facility] 06-26-2024 13:44-0400 Systolic blood pressure 142 mm[Hg] Navarro Oviedo MD Work Phone: [facility] 06-22-2024 10:15-0400 Diastolic blood pressure 90 mm[Hg] Gordon Rangel MD Work Phone: [facility] 06-22-2024 10:15-0400 Heart rate 69 /min Gordon Rangel MD Work Phone: [facility] 06-22-2024 10:15-0400 Respiratory rate 13 /min Gordon Rangel MD Work Phone: [facility] 06-22-2024 10:15-0400 SaO2% (BldA) [Mass fraction] 98 % Gordon Rangel MD Work Phone: [facility] 06-22-2024 10:15-0400 Systolic blood pressure 142 mm[Hg] Gordon Rangel MD Work Phone: [facility] 06-22-2024 09:38-0400 Body temperature 97 [degF] Gordon Rangel MD Work Phone: [facility] 06-22-2024 08:16-0400 Body height 170.2 cm Gordon Rangel MD Work Phone: [facility] 06-22-2024 08:16-0400 Body mass index (BMI) [Ratio] 49.4 kg/m2 Gordon Rangel MD Work Phone: [facility] 06-22-2024 08:16-0400 Body weight 143.06 kg Gordon Rangel MD Work Phone: [facility] 06-01-2024 16:54-0400 Body height 172.7 cm Rufino Arias DPM Work Phone: [facility] 06-01-2024 16:54-0400 Body mass index (BMI) [Ratio] 46.53 kg/m2 Rufino Arias DPM Work Phone: [facility] 06-01-2024 16:54-0400 Body weight 138.8 kg Rufino Arias DPM Work Phone: [facility] 06-01-2024 16:54-0400 Respiratory rate 18 /min Rufino Arias DPM Work Phone: [facility] 05-18-2024 16:32-0400 Body height 172.7 cm Rufino Arias DPM Work Phone: [facility] 05-18-2024 16:32-0400 Body mass index (BMI) [Ratio] 46.53 kg/m2 Rufino Arias DPM Work Phone: [facility] 05-18-2024 16:32-0400 Body weight 138.8 kg Rufino Arias DPM Work Phone: [facility] 05-18-2024 16:32-0400 Respiratory rate 18 /min Rufino Arias DPM Work Phone: [facility] 03-30-2024 16:33-0500 Body height 172.7 cm Rufino Arias DPM Work Phone: [facility] 03-30-2024 16:33-0500 Body mass index (BMI) [Ratio] 46.53 kg/m2 Rufino Arias DPM Work Phone: [facility] 03-30-2024 16:33-0500 Body weight 138.8 kg Rufino Arias DPM Work Phone: [facility] 03-30-2024 16:33-0500 Respiratory rate 16 /min Rufino Arias DPM Work Phone: [facility] 03-13-2024 14:45-0500 Body height 172.7 cm Sonya Villa [employer] Work Phone: [facility] 03-13-2024 14:45-0500 Body mass index (BMI) [Ratio] 47.1 kg/m2 Sonya Villa [employer] Work Phone: [facility] 03-13-2024 14:45-0500 Body temperature 97.39 [degF] Sonya Villa [employer] Work Phone: [facility] 03-13-2024 14:45-0500 Body weight 140.52 kg Sonya Villa [employer] Work Phone: [facility] 03-13-2024 14:45-0500 Diastolic blood pressure 90 mm[Hg] Sonya Villa [employer] Work Phone: [facility] 03-13-2024 14:45-0500 Heart rate 89 /min Sonya Villa [employer] Work Phone: [facility] 03-13-2024 14:45-0500 Respiratory rate 16 /min Sonya Villa [employer] Work Phone: [facility] 03-13-2024 14:45-0500 SaO2% (BldA) [Mass fraction] 98 % Sonya Villa [employer] Work Phone: [facility] 03-13-2024 14:45-0500 Systolic blood pressure 140 mm[Hg] Sonya Villa [employer] Work Phone: [facility] 03-09-2024 14:38-0500 Body height 172.7 cm Sonya Villa [employer] Work Phone: [facility] 03-09-2024 14:38-0500 Body mass index (BMI) [Ratio] 46.98 kg/m2 Sonya Villa [employer] Work Phone: [facility] 03-09-2024 14:38-0500 Body temperature 97.81 [degF] Sonya Villa [employer] Work Phone: [facility] 03-09-2024 14:38-0500 Body weight 140.16 kg Sonya Villa [employer] Work Phone: [facility] 03-09-2024 14:38-0500 Diastolic blood pressure 88 mm[Hg] Sonya Villa [employer] Work Phone: [facility] 03-09-2024 14:38-0500 Heart rate 91 /min Sonya Villa [employer] Work Phone: [facility] 03-09-2024 14:38-0500 Respiratory rate 16 /min Sonya Villa [employer] Work Phone: [facility] 03-09-2024 14:38-0500 SaO2% (BldA) [Mass fraction] 96 % Sonya Villa [employer] Work Phone: [facility] 03-09-2024 14:38-0500 Systolic blood pressure 158 mm[Hg] Sonya Villa [employer] Work Phone: [facility] 11-23-2023 15:22-0400 Body mass index (BMI) [Ratio] 48.24 kg/m2 Sonya Villa [employer] Work Phone: [facility] 11-23-2023 15:22-0400 Body temperature 97.3 [degF] Sonya Villa [employer] Work Phone: [facility] 11-23-2023 15:22-0400 Body weight 139.71 kg Sonya Villa [employer] Work Phone: [facility] 11-23-2023 15:22-0400 Diastolic blood pressure 102 mm[Hg] Sonya Villa [employer] Work Phone: [facility] 11-23-2023 15:22-0400 Heart rate 82 /min Sonya Villa [employer] Work Phone: [facility] 11-23-2023 15:22-0400 SaO2% (BldA) [Mass fraction] 97 % Sonya Villa [employer] Work Phone: [facility] 11-23-2023 15:22-0400 Systolic blood pressure 146 mm[Hg] Sonya Villa [employer] Work Phone: [facility] 10-11-2023 15:42-0400 Body height 170.2 cm Sonya Villa [employer] Work Phone: [facility] 10-11-2023 15:42-0400 Body mass index (BMI) [Ratio] 49.02 kg/m2 Sonya Villa [employer] Work Phone: [facility] 10-11-2023 15:42-0400 Body temperature 97.3 [degF] Sonya Dorantrick [employer] Work Phone: [facility] 10-11-2023 15:42-0400 Body weight 141.98 kg Sonya Dorantrick [employer] Work Phone: [facility] 10-11-2023 15:42-0400 Diastolic blood pressure 90 mm[Hg] Sonya Manningpatrick [employer] Work Phone: [facility] 10-11-2023 15:42-0400 Heart rate 89 /min Sonya Dorantrick [employer] Work Phone: [facility] Comment on above: 100% O2 10-11-2023 15:42-0400 Systolic blood pressure 136 mm[Hg] Sonya Dorantrick [employer] Work Phone: [facility] 12-25-2017 19:30-0500 Body mass index (BMI) [Ratio] IVAN [facility] Encounters Encounter Date Encounter Type Care Provider Facility Start: 07-27-2024 End: 07-27-2024 ambulatory RUFINO ARIAS Not Available Start: 07-27-2024 End: 07-27-2024 Patient encounter procedure Rufino Arias DPM Work Phone: [facility] Comment on above: Verruca plantaris (P rimary Dx); Foot pain, right Start: 07-27-2024 End: 07-27-2024 Bamboo flowsheet Rufino Arias DPM Work Phone: [facility] Start: 07-27-2024 End: 07-27-2024 Bamboo flowsheet Rufino Arias DPM Work Phone: [facility] Start: 07-19-2024 End: 07-19-2024 Bamboo flowsheet Navarro Oviedo MD Work Phone: [facility] Start: 07-19-2024 End: 07-19-2024 Bamboo flowsheet Navarro Oviedo MD Work Phone: [facility] Start: 07-19-2024 End: 07-19-2024 ambulatory NAVARRO OVIEDO Not Available Start: 07-19-2024 End: 07-19-2024 Office outpatient visit 15 minutes Navarro Oviedo MD Work Phone: [facility] Comment on above: 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 (Primary Dx); Urticaria Start: 07-13-2024 End: 07-13-2024 ambulatory RUFINO ARIAS Not Available Start: 07-13-2024 End: 07-13-2024 Patient encounter procedure Rufino Arias DPM Work Phone: [facility] Comment on above: Verruca plantaris (P rimary Dx); Foot pain, right Start: 06-26-2024 End: 06-26-2024 Bamboo flowsheet Navarro Oviedo MD Work Phone: [facility] Start: 06-26-2024 End: 06-26-2024 Bamboo [...] uncomplicated (CMS/HCC) Start: 06-22-2024 End: 06-22-2024 ambulatory GORDON RANGEL [facility] Start: 06-22-2024 End: 06-22-2024 Subsequent hospital visit [...] [facility] Start: 05-21-2024 End: 05-21-2024 ambulatory [facility] [facility] Start: 05-21-2024 End: 05-21-2024 Encounter for other preprocedural examination [facility] Start: 05-21-2024 End: 05-21-2024 Subsequent hospital visit by physician Sonya Cleary NP Work Phone: [facility] Start: 05-18-2024 End: 05-18-2024 Patient encounter [...] Start: 05-04-2024 End: 05-04-2024 Bamboo flowsheet Rufino Jackson Juana DPM Work Phone: [facility] Start: 05-04-2024 End: 05-04-2024 Bamboo flowsheet Rufino Jackson Juana DPM Work Phone: [facility] Start: 04-20-2024 End: 04-20-2024 ambulatory RUFINO A JUANA Not Available Start: 03-30-2024 End: 03-30-2024 ambulatory RUFINO Jackson JUANA Not Available Start: 03-30-2024 End: 03-30-2024 Office outpatient new 30 minutes Rufino A Juana DPM Work Phone: [facility] Comment on above: Cellulitis of right thumb (Primary Dx); Neoplasm of uncertain behavior of skin; Verruca plantaris; Foot pain, right Start: 03-30-2024 End: 03-30-2024 Bamboo flowsheet Rufino Jackson Juana DPM Work Phone: [facility] Start: 03-30-2024 End: 03-30-2024 Bamboo flowsheet Rufino Jackson Juana DPM Work Phone: [facility] Start: 03-23-2024 End: 03-23-2024 ambulatory SONYA VILLA Not Available Start: 03-21-2024 End: 03-21-2024 Clinisync Result Encounter Sonya Villa STOVE INSTALLER Work Phone: [facility] Unsolicited Start: 03-21-2024 End: 03-21-2024 Clinisync Result Encounter Sonya Villa STOVE INSTALLER Work Phone: [facility] Unsolicited Start: 03-21-2024 End: 03-21-2024 Orders Only Sonya Villa STOVE INSTALLER Work Phone: [facility] Comment on above: Vitamin D deficiency (Primary Dx); Anemia due to folic acid deficiency, unspecified deficiency type Start: 03-20-2024 End: 03-20-2024 Clinisync Result Encounter Sonya Villa STOVE INSTALLER Work Phone: [facility] Unsolicited Start: 03-20-2024 End: 03-20-2024 Clinisync Result Encounter Sonya Villa STOVE INSTALLER Work Phone: [facility] Unsolicited Start: 03-13-2024 End: 03-13-2024 ambulatory SONYA VILLA Not Available Start: 03-13-2024 End: 03-13-2024 Periodic preventive med est patient 18-39 yrs Sonya Villa STOVE INSTALLER Work Phone: [facility] Comment on above: Wellness examination (Primary Dx); Fatigue, unspecified type; Anemia, unspecified type; Acute paronychia of right thumb Start: 03-13-2024 End: 03-13-2024 Patient encounter status Sonya Villa STOVE INSTALLER Work Phone: [facility] Start: 03-10-2024 End: 03-10-2024 Clinisync Result Encounter Sonya Villa STOVE INSTALLER Work Phone: [facility] Unsolicited Start: 03-10-2024 End: 03-10-2024 Clinisync Result Encounter Sonya Villa STOVE INSTALLER Work Phone: [facility] Unsolicited Start: 03-09-2024 End: 03-09-2024 ambulatory SONYA VILLA Not Available Start: 03-09-2024 End: 03-09-2024 Office outpatient visit 10 minutes Sonya Villa STOVE INSTALLER Work Phone: [facility] Comment on above: Acute paronychia of right thumb (Primary Dx); Primary hypertension (CMS/HCC) Start: 03-09-2024 End: 03-09-2024 Bamboo flowsheet Sonya Villa STOVE INSTALLER Work Phone: [facility] Start: 03-09-2024 End: 03-09-2024 Bamboo flowsheet Sonya Dorantrick STOVE INSTALLER Work Phone: [facility] Start: 12-09-2023 End: 12-09-2023 Orders Only Sonya Dorantrick STOVE INSTALLER Work Phone: [facility] Comment on above: Acute non-recurrent frontal sinusitis (Primary Dx) Start: 11-23-2023 End: 11-23-2023 Periodic preventive med est patient 18-39 yrs Sonya Herediak STOVE INSTALLER Work Phone: [facility] Comment on above: Blood pressure eleva yue without history of HTN (Primary Dx); Morbid obesity (CMS/HCC); Encounter for wellness examination in adult; Tinea pedis of both feet; Opioid abuse, in remission (CMS/HCC) Start: 11-23-2023 End: 11-23-2023 ambulatory SONYA ROBERTSZPATRICK Not Available Start: 11-23-2023 End: 11-23-2023 Bamboo flowsheet Sonya Dorantrick STOVE INSTALLER Work Phone: [facility] Start: 11-23-2023 End: 11-23-2023 Bamboo flowsheet Sonya Manningpatrick STOVE INSTALLER Work Phone: [facility] Start: 11-23-2023 End: 11-23-2023 Patient encounter status Sonya Robertszpatrick STOVE INSTALLER Work Phone: [facility] Start: 10-11-2023 End: 10-11-2023 ambulatory SONYA VILLA Not Available Start: 10-11-2023 End: 10-11-2023 Office outpatient visit 15 minutes Sonya Villa STOVE INSTALLER Work Phone: [facility] Comment on above: Encounter for weight management (Primary Dx) Start: 08-12-2023 End: 08-12-2023 ambulatory SHAIKH EMILIANA Not Available Start: 04-05-2023 Patient encounter status Huyenankit Villa NP Work Phone: [facility] Start: 07-14-2022 End: 07-15-2022 ambulatory Liliane [...] Start: 04-22-2022 End: 04-22-2022 ambulatory KISER H FAMARY Facility:[facility]1 Start: 08-11-2021 End: 08-12-2021 ambulatory KISER H FAWTANA Facility:[facility] Start: 04-24-2019 End: 04-24-2019 Emergency department patient visit UNKNOWN PROVIDER Facility:[facility] Start: 04-05-2018 End: 04-05-2018 Emergency department patient visit NO FAMILY DOCTOR NO FAMILY DOCTOR Facility:[facility] Start: 02-01-2018 End: 02-02-2018 Patient encounter procedure [facility] Start: 01-31-2018 End: 02-01-2018 Patient encounter procedure [facility] Start: 01-30-2018 End: 01-31-2018 Patient encounter procedure [facility] Start: 01-29-2018 End: 01-30-2018 Patient encounter procedure [facility] Start: 01-28-2018 End: 01-29-2018 Patient encounter procedure [facility] Start: 01-27-2018 End: 01-28-2018 Patient encounter procedure [facility] Start: 01-26-2018 End: 01-27-2018 Patient encounter procedure [facility] Start: 01-25-2018 End: 01-26-2018 Patient encounter procedure TINA A DIANNE [facility] Start: 01-24-2018 End: 01-25-2018 Patient encounter procedure TINA A DIANNE [facility] Start: 01-23-2018 End: 01-24-2018 Patient encounter procedure TINA A DIANNE [facility] Start: 01-22-2018 End: 01-23-2018 [facility] Start: 01-21-2018 End: 01-22-2018 [facility] Start: 01-20-2018 End: 01-21-2018 [facility] Start: 01-19-2018 End: 01-20-2018 [facility] Start: 01-18-2018 End: 01-19-2018 Patient encounter procedure TINA A DIANNE [facility] Start: 01-17-2018 End: 01-18-2018 [facility] Start: 01-16-2018 End: 01-17-2018 Patient encounter procedure TINA A DIANNE [facility] Start: 01-15-2018 End: 01-16-2018 [facility] Start: 01-14-2018 End: 01-15-2018 Patient encounter procedure TINA A DIANNE [facility] Start: 01-13-2018 End: 01-14-2018 Patient encounter procedure TINA A DIANNE [facility] Start: 01-12-2018 End: 01-13-2018 [facility] Start: 01-11-2018 End: 01-12-2018 [facility] Start: 01-10-2018 End: 01-11-2018 Patient encounter procedure TINA A DIANNE [facility] Start: 01-09-2018 End: 01-10-2018 [facility] Start: 01-08-2018 End: 01-09-2018 Patient [facility] Start: 01-07-2018 End: 01-08-2018 Patient encounter procedure [facility] Start: 01-06-2018 End: 01-07-2018 Patient encounter [facility] Start: 01-05-2018 End: 01-06-2018 Patient encounter procedure [facility] Start: 12-26-2017 End: 01-04-2018 Evaluation and management of inpatient VERO DALTON [facility] Start: 12-25-2017 End: 12-25-2017 Emergency department patient visit [facility] Procedures Date Procedure Procedure Detail Performing Clinician Start: 06-22-2024 Gonadotropin chorion ic qualitative Gordon Rangel MD Work Phone: Start: 05-21-2024 Ecg routine ecg w/le ast 12 lds w/i&r Melyssa Cortez CHILD WELFARE WORKER - PHOTOGRAPHIC ENGINEER Work Phone: Start: 03-21-2024 OCCULT BLOOD* Sonya Villa STOVE INSTALLER Work Phone: Start: 03-20-2024 [facility] [facility] [facility] TIBC Sepideh aureany Allen STOVE INSTALLER Work Phone: Start: 03-10-2024 ALL CBC WITH AUTO DIFF Sonya Villa STOVE INSTALLER Work Phone: Start: 08-25-2022 Microscopic observat ion [Identifier] in Cervix by Cyto stain Sonya Villa STOVE INSTALLER Work Phone: Start: 04-24-2019 DISCHARGE PATIENT UNKNO [...] FERNANDEZ Start: 01-04-2018 INCENTIVE SPIROMETRY RT VERO DALTON Start: 01-04-2018 PULSE OXIMETRY, CONTINUOUS VERO Start: 01-04-2018 DISCHARGE PATIENT NAVNEET DALTON Start: 01-04-2018 NURSING COMMUNICATION Y VINICIUS Start: 01-04-2018 INCENTIVE SPIROMETRY RT VERO Start: [...] OXIMETRY, CONTINUOUS Start: 01-03-2018 CULTURE BLOOD #1 VERO Start: 01-03-2018 Microscopic examinat ion of blood, culture VERO Start: 01-03-2018 INCENTIVE SPIROMETRY RT Start: 01-03-2018 INCENTIVE SPIROMETRY RT VERO Start: 01-03-2018 PULSE OXIMETRY, CONTINUOUS VERO Start: 01-03-2018 INCENTIVE SPIROMETRY RT Start: 01-03-2018 INCENTIVE SPIROMETRY RT VERO Start: 01-03-2018 PULSE OXIMETRY, CONTINUOUS VERO Start: 01-03-2018 INCENTIVE SPIROMETRY RT VERO Start: 01-03-2018 NURSING COMMUNICATION Y NIR Start: 01-03-2018 INCENTIVE SPIROMETRY RT VERO Start: [...] VERO Start: 01-01-2018 INCENTIVE SPIROMETRY RT VERO BAGHDY Start: 01-01-2018 INCENTIVE SPIROMETRY RT VERO BAGHDY Start: 12-31-2017 INCENTIVE SPIROMETRY RT VERO BAGHDY Start: 12-31-2017 PULSE OXIMETRY, CONTINUOUS VERO BAGHDY Start: 12-31-2017 INCENTIVE SPIROMETRY RT VERO BAGHDY Start: 12-31-2017 Fluoro central venou s access dev placement VERO BAGHD Start: 12-31-2017 Insj prph cvc w/o house bq port/psychiatric arnp age 5 yr/> VERO BAGHD Start: 12-31-2017 Us vasc access sits vsl patency ndl entry VERO BAG Start: 12-31-2017 INCENTIVE SPIROMETRY RT VERO BAGHD Start: 12-31-2017 INCENTIVE SPIROMETRY RT VERO BAGHD Start: 12-31-2017 PULSE OXIMETRY, CONTINUOUS VERO BAGHDY Start: 12-31-2017 INCENTIVE SPIROMETRY RT VERO BAGHD Start: 12-31-2017 INCENTIVE SPIROMETRY RT VERO BAGHD Start: 12-31-2017 PULSE OXIMETRY, CONTINUOUS VERO BAGHDY Start: 12-31-2017 INCENTIVE SPIROMETRY RT VERO BAGHD Start: 12-31-2017 INSERT PICC LINE VERO Start: 12-31-2017 MISCELLANEOUS NURSIN G CARE ORDER (SPECIFY) VERO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 right Pain in soft tissues of limb documented in this encounter [facility] HealthcareEvaluation note* Diagnosis URTI (acute upper respiratory [...] and other nonspecific skin eruption Morbid obesity ([facility]) Morbid obesity Morbid obesity ([facility])- Primary Morbid obesity Morbid obesity ([facility]) Morbid obesity Morbid obesity ([facility])- Primary Morbid obesity Ingrown fingernail Skin lesion Unspecified disorder of skin and subcutaneous tissue Encounter for weight management- Primary Blood pressure elevated without history of HTN- Primary Morbid obesity ([facility]) Morbid obesity Encounter for wellness examination in adult Tinea pedis of both feet Opioid abuse, in remission Acute paronychia of right thumb- Primary Primary hypertension ([facility]) Unspecified essential hypertension Wellness examination- Primary Fatigue, unspecified type Anemia, unspecified type Acute paronychia of right thumb Verruca plantaris- Primary Plantar wart Foot pain, right Pain in soft tissues of limb documented in this encounter [facility] HealthcareEvaluation note* Diagnosis Rectal bleeding- Primary Hemorrhage of rectum and anus documented in this encounter [facility] HealthEvaluation note* Diagnosis URTI (acute upper respiratory [...] tissues of limb documented in this encounter [facility] HealthcareEvaluation note* Diagnosis URTI (acute upper [...] Encounter for weight management Opioid dependence, uncomplicated ([facility]) Verruca plantaris- Primary Plantar wart Foot pain, right Pain in soft tissues of limb documented in this encounter [facility] HealthcareEvaluation note* Diagnosis Shoulder blade pain- Primary Pain in joint, [...] Acute paronychia of right thumb Primary hypertension ([facility])- Primary Unspecified essential hypertension URI, acute Acute upper respiratory infections of unspecified site Class 3 severe obesity due to excess calories with serious comorbidity and body mass index (BMI) of 45.0 to 49.9 in adult Encounter for weight management Opioid dependence, uncomplicated ([facility]) Allergic reaction due to antibacterial drug- Primary Urticaria Unspecified urticaria Verruca plantaris- Primary Plantar wart Foot pain, right Pain in soft tissues of limb documented in this encounter [facility] HealthcareEvaluation note* Diagnosis Shoulder blade pain- Primary Pain in joint, shoulder region Other chest pain Anemia, unspecified type Morbid obesity (CMS-HCC)- Primary Morbid obesity Morbid obesity (CMS-HCC) Morbid obesity Morbid obesity (CMS-HCC)- Primary Morbid obesity Ingrown fingernail Skin lesion Unspecified disorder of skin and subcutaneous tissue Blood pressure elevated without history of HTN- Primary Morbid obesity ([facility]) Morbid obesity Encounter for wellness examination in adult Tinea pedis of both feet Opioid abuse, in remission ([facility]) Opioid abuse, in remission Acute paronychia of right thumb- Primary Primary hypertension Unspecified essential hypertension Wellness examination- Primary Fatigue, unspecified type Anemia, unspecified type Acute paronychia of right thumb Primary hypertension- Primary Unspecified essential hypertension URI, acute Acute upper respiratory infections of unspecified site Class 3 severe obesity due to excess calories with serious comorbidity and body mass index (BMI) of 45.0 to 49.9 in adult ([facility]) Encounter for weight management Opioid dependence, uncomplicated ([facility]) Allergic reaction due to antibacterial drug- Primary Urticaria Unspecified urticaria Verruca plantaris- Primary Plantar wart Foot pain, right Pain in soft tissues of limb [facility]* Rufino Arias, DPClemencia - 05/18/2024 4:40 PM EDT Patient: Alesha [...] Allergies Endocarditis Endometriosis Gestational diabetes Hepatitis C ([facility]) History of endocarditis in adulthood Obesity, morbid ([facility]) Opioid abuse ([facility]) Substance abuse ([facility]) Tobacco user Medications: Current Outpatient Medications: Buprenorphine [...] Insecurity: No Food Insecurity (09/22/2022) [facility] Hunger Screening Within the past 12 months [...] pathological diagnosis of specimen. Patient may take nnom-php-ncotvjz NSAID p.r.n. for pain Application of salinocaine acid medication to lesion/lesions located at right foot Informed pt of risks and benefits of procedure including high reoccurence rate, infection, pain andconsent given. Application of DSD post procedure. Rufino Arias DPM [facility] N[facility]ative* Auth/Cert Specialty Diagnoses / Procedures Referred By Carmen pham Referred To Contact Diagnoses Rectal bleeding Procedures KS COLON CA SCRN NOT HI RSK IND COLORECTAL CANCER SCREENING, NOT HIGH RISK Gordon Rangel MD [address] [place] [id number] Phone: tel: [facility] [address] [place] [address] Referral ID Status Reason Start Date Expiration Date Visits Re quested Visits Authorized [id number] [facility] Summary Purpose Family History No Family History Records FoundNo Family History Records FoundNo Family History Records FoundNo Family History Records FoundNo Family History Records FoundNo Family History Records FoundNo Family History Records FoundNo Family History Records FoundNo Family History Records Found Advance Directives Documents on File Type Date Recorded Patient Structural Architect Expl anation ACP-Advance Directive 01/05/2018 12:59 PM Date Activated Date Inactivated Comments 12/28/2017 1:44 AM 01/04/2018 3:56 PM Date Activated Date Inactivated Comments 12/27/2017 6:10 PM 12/28/2017 1:44 AM Date Activated Date Inactivated Comments 12/26/2017 12:26 AM 12/27/2017 6:10 PM Date Activated Date Inactivated Comments 04/29/2016 2:38 AM 04/30/2016 10:54 PM Documents on File Type Date Recorded Patient Structural Architect Expl 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 ACP-Advance Directive 01/05/2018 12:59 PM [...] content) DATE CREATED AUTHOR 02/04/2018 [facility] DATE CREATED AUTHOR AUTHOR'S ORGANIZ ATION 02/19/2018 [facility] DATE CREATED AUTHOR AUTHOR'S ORGANIZ ATION 05/02/2018 [facility] DATE CREATED AUTHOR AUTHOR'S ORGANIZ ATION 03/15/2021 [facility] DATE CREATED AUTHOR AUTHOR'S ORGANIZ ATION 06/29/2022 [facility] DATE CREATED AUTHOR AUTHOR'S ORGANIZ ATION 07/25/2022 [facility] DATE CREATED AUTHOR AUTHOR'S ORGANIZ ATION [facility] DATE CREATED AUTHOR AUTHOR'S ORGANIZ ATION [facility] DATE CREATED AUTHOR AUTHOR'S ORGANIZ ATION 07/30/2024 [facility] Special[facility] [employer] Care Teams (unrecognized sec tion and content) Education Rep Relationship Specialty Start Date End Date Navarro Oviedo MD [address] [place] [address] PCP - General Family Medicine 09/15/23 Sonya Villa NP [address] [place] [address] Nurse Practitioner Family Medicine 09/15/23 Education Rep Relationship Specialty Start Date End Date Navarro Oviedo MD [address] [place] [address] PCP - General Family Medicine 09/15/23 Sonya Villa NP [address] [place] [address] Nurse Practitioner Family Medicine 09/15/23 Education Rep Relationship Specialty Start Date End Date Navarro Oviedo MD [address] [place] [phone] PCP - General Family Medicine 09/15/23 Sonya Villa NP [address] [place] [address] Nurse Practitioner Family Medicine 09/15/23 Education Rep Relationship Specialty Start Date End Date Navarro Oviedo MD [address] [place] [phone] PCP - General Family Medicine 09/15/23 Sonya Villa NP [address] [place] [address] Nurse Practitioner Family Medicine 09/15/23 Education Rep Relationship Specialty Start Date End Date Navarro Oviedo MD [address] [place] [address] PCP - General Family Medicine 09/15/23 Sonya Villa NP [address] [place] [address] Nurse Practitioner Family Medicine 09/15/23 Education Rep Relationship Specialty Start Date End Date Navarro Oviedo MD [address] [place] [phone] PCP - General Family Medicine 09/15/23 Sonya Villa NP [address] [place] [address] Nurse Practitioner Family Medicine 09/15/23 Education Rep Relationship Specialty Start Date End Date Navarro Oviedo MD [address] [place] [phone] PCP - General Family Medicine 09/15/23 Sonya Villa NP [address] [place] [address] Nurse Practitioner Family Medicine 09/15/23 Education Rep Relationship Specialty Start Date End Date Navarro Oviedo MD [address] [place] [address] PCP - General Family Medicine 09/15/23 Sonya Villa NP [address] [place] [address] Nurse Practitioner Family Medicine 09/15/23 Education Rep Relationship Specialty Start Date End Date Navarro Oviedo MD [address] [place] [phone] PCP - General Family Medicine 09/15/23 Sonya Villa NP [address] [place] [address] Nurse Practitioner Family Medicine 09/15/23 Education Rep Relationship Specialty Start Date End Date Navarro Oviedo MD [address] [place] [address] PCP - General Family Medicine 09/15/23 Sonya Villa NP [address] [place] [address] Nurse Practitioner Family Medicine 09/15/23 Education Rep Relationship Specialty Start Date End Date Navarro Oviedo MD [address] [place] [address] PCP - General Family Medicine 09/15/23 Sonya Villa NP [address] [place] [address] Nurse Practitioner Family Medicine 09/15/23 Education Rep Relationship Specialty Start Date End Date Navarro Oviedo MD [address] [place] [address] PCP - General Family Medicine 09/15/23 Sonya Villa NP [address] [place] [address] Nurse Practitioner Family Medicine 09/15/23 Education Rep Relationship Specialty Start Date End Date Nvaarro Oviedo MD [address] [place] [address] PCP - General Family Medicine 09/15/23 Sonya Villa NP [address] [place] [address] Nurse Practitioner Family Medicine 09/15/23 Education Rep Relationship Specialty Start Date End Date Navarro Oviedo MD [address] [place] [address] PCP - General Family Medicine 09/15/23 Sonya Villa NP [address] [place] [address] Nurse Practitioner Family Medicine 09/15/23 Education Rep Relationship Specialty Start Date End Date Navarro Oviedo MD [address] [place] [address] PCP - General Family Medicine 09/15/23 Sonya Villa NP [address] [place] [address] Nurse Practitioner Family Medicine 09/15/23 Education Rep Relationship Specialty Start Date End Date Navarro Oviedo MD [address] [place] [address] PCP - General Family Medicine 09/15/23 Sonya Villa NP [address] [place] [address] Nurse Practitioner Family Medicine 09/15/23 Education Rep Relationship Specialty Start Date End Date Sonya Villa APRN - STOVE INSTALLER [address] [place] [address] PCP - General Nurse Practitioner 05/11/24 Education Rep Relationship Specialty Start Date End Date Sonya Villa APRN - STOVE INSTALLER [address] [place] [phone] PCP - General Nurse Practitioner 05/11/24 Education Rep Relationship Specialty Start Date End Date Navarro Oviedo MD [address] [place] [address] PCP - General Family Medicine 09/15/23 Sonya Villa NP [address] [place] [address] Nurse Practitioner Family Medicine 09/15/23 Education Rep Relationship Specialty Start Date End Date Navarro Oviedo MD [address] [place] [address] PCP - General Family Medicine 09/15/23 Sonya Villa NP [address] [place] [address] Nurse Practitioner Family Medicine 09/15/23 Education Rep Relationship Specialty Start Date End Date Navarro Oviedo MD [address] [place] [address] PCP - General Family Medicine 09/15/23 Sonya Villa NP [address] [place] [address] Nurse Practitioner Family Medicine 09/15/23 Education Rep Relationship Specialty Start Date End Date Navarro Oviedo MD [address] [place] [address] PCP - General Family Medicine 09/15/23 Sonya Villa NP [address] [place] [address] Nurse Practitioner Family [facility] 09/15/23 Education Rep Relationship Specialty Start Date End Date Navarro Oviedo MD [address] [place] [address] PCP - General Family Medicine 09/15/23 Sonya Villa NP [address] [place] [address] Nurse Practitioner [facility] 09/15/23 Education Rep Relationship Specialty Start Date End Date Navarro Oviedo MD [address] [place] [address] PCP - General Family [facility] 09/15/23 Sonya Villa NP [address] [place] [address] Nurse Practitioner Family Medicine 09/15/23 Reason for [...] weight loss Reason Comments Follow-up Lesion check Reason Comments Follow-up Tbh f/upHives on leg s/arms Shortness of Breath Continuous Active and Recently Administ ered Medications [...] BE BASED ON THE PRIMARY CLINICAL RECORDS. [employer] provides no warranty or guarantee of the accuracy or completeness of information in this document.
== END 2024-07-25 16:01 | disposition home or self-care (01) ==
LOC: MN 08-01 07:19
PROVIDERS: PCP Family Medicine
DX: E66.813 Obesity, class 3 (principal); Z71.3 Dietary counseling and surveillance
CPT/HCPCS: 97802

== ENCOUNTER 2024-07-26 10:57 | Outpatient (OUT) | payer MEDICAID, SELFPAY | END 2024-07-26 10:58 | disposition home or self-care (01) | LOC: MN 10:58 | PROVIDERS: PCP Family Medicine | DX: E66.813 Obesity, class 3 (principal) ==

== ENCOUNTER 2024-08-24 19:06 | Outpatient (REF) | payer MEDICAID, SELFPAY ==
--- OUTSIDE RECORDS SUMMARY | 2013-10-10 14:00 | XMS_ITS | Encounter Summary ---
Author Organization [facility] Address [address] [employer] [place] [address] Care Team Providers Care Postulant Name Role Phone Unavailable Primary Care Provider Unavailabl e Encounter Details Date Type Department Care Team (Late st Contact Info) Description 10/10/2013 2:00 PM EDT Hospital Encounter [facility] Ultrasound 45 [place] [address] Adonay Gordillo MD [address] [place] [address] Social History Tobacco Use Types [...] Comment:MRSA respiratory culture on 12/29/2017. endocarditis at [facility] in [place] approximately 6 months ago. 12/29/2017 12/27/2017 documented as of this encounter
--- OUTSIDE RECORDS SUMMARY | 2014-10-12 08:00 | XMS_ITS | Encounter Summary ---
Author Organization [facility] Address [address] [place] [address] Care Team Providers Care Performance Reporter Name Role Phone Unavailable Primary Care Provider Unavailabl e Encounter Details Date Type Department Care Team (Late st Contact Info) Description 10/12/2014 8:00 AM EDT Hospital Encounter [facility] [address] [place] [phone] Adonay Gordillo MD [address] [facility] [address] [place] [phone] Social History Tobacco Use Types Packs/Day Years [...] Comment:MRSA respiratory culture on 12/29/2017. endocarditis at [facility] in [place] approximately 6 months ago. 12/29/2017 12/27/2017 documented as of this encounter
--- OUTSIDE RECORDS SUMMARY | 2015-02-11 16:00 | XMS_ITS | Encounter Summary ---
Author Organization [facility] Address [address] [place] [address] Care Team Providers Care Paper Box Cutter Name Role Phone Unavailable Primary Care Provider Unavailabl e Encounter Details Date Type Department Care Team (Late st Contact Info) Description 02/11/2015 3:00 PM [facility] Hospital Encounter MTH PRE ADMIT [address] [place] [address] Adonay Gordillo MD [address] [place] [phone] Social History Tobacco Use Types Packs/Day Years [...] Comment:MRSA respiratory culture on 12/29/2017. endocarditis at [facility] in [place] approximately 6 months ago. 12/29/2017 12/27/2017 documented as of this encounter
--- OUTSIDE RECORDS SUMMARY | 2018-04-28 05:00 | XMS_ITS | Continuity of Care Document ---
Author Organization [facility] Address [address] [place] [address] Phone Care Team Providers Care Natural Developer Name Role Phone Pool [place] Unavailable Unavailable Allergies, Adverse Reactions, Alerts Substance Reaction Status Criticality vancomycin Difficulty breathing Active No Info rmation Penicillins Difficulty breathing Active No Info rmation Medications Medication Instructions Dosage Effective Dates (start - stop) Status Comments clindamycin HCl 300 mg capsule take 1 capsule by oral route every 6 hours for dental abscess 300 MG - Active Women's Multivitamin 18 mg iron-400 mcg-500 mg tablet - Active Zantac 150 mg tablet take 1 tablet by or al route 2 times every day - Active Procedures Procedure Date Extract; Erupted Th/exposted Rt 019 Extract; Erupted Th/exposted Rt 019 Extract; Erupted Th/exposted Rt 019 Treatment Completed Limited Oral Eval Intraoral-periapical 1st Film 9 [id number] Additional Apr Tobacco Counseling Oral Hygiene Instruction Advance Directives Directive Yes / No Effective Date File Name No Information Encounters Encounter Description Practice Location Reason(s) For Visit Diagnoses Date Provider Providers Copied on Encounter [facility], [address] [place] [address], [id number], [place] tel:[phone] Dental Clinic extraction (chief complaint) Encounter for screening for dental disorders 9 Rosa Elena Lanza. [address] [place], [place], [id number] , [place]. tel:[phone] [facility], [address] [place] [address], [id number], [place] tel:[phone] [facility] cervical spine (chief complaint)ce rvical spine (chief complaint) Segmental and somatic dysfunction of cervical regionCervicalgi aRadiculopathy, cervical regionSegmental and somatic dysfunction of thoracic region 9 Yaw Pineda. [address] [place] [address], [id number] , [place]. tel:[phone] [facility], [address] [place] [address], [id number], [place] tel:[phone] Dental Clinic Dental Limited (chief complaint) Encounter for screening for dental disorders 9 Jackelyn Marshall. [address] [place] [address], [id number] , [place]. tel:[phone] Family History Family Member Type Diagnosis Age At Onset Father Problem (finding) Mother Problem (finding) hypertension Mother Problem (finding) Alive and well Payers Payer name Insurance type Covered republican ID Ophelia phillips(s) D Medicaid Primary [facility] [id number] Social History Type Description Quantity Date Captured Comments Alcohol Use Details Unknown Caffeine Use Details Unknown Tobacco Use Status Occasional cigarette smoker Smoking Status Heavy tobacco smoker Smoking Tobacco Use Details Cigarette: No Details Available Cigarette: 10 Cigarettes per day Sex Female Sexual Orientation Bisexual Gender Identity Female Vital Signs Date / Time: Height Weight BMI Pulse Rate Blood Pressure Temperature Respiratory Rate Body Surface Area Head Circumference Head Circ. Percentile Wt./Abhishek. Percentile BMI percentile Pulse Ox Inhaled Ox 9:19 AM 94 /min 111/64 mm[Hg] Chief Complaint And Reason For Visit From encounter dated '04/28/2018 09:00'. extraction (chief complaint). Description: continue with treatment Reason For Referral Reason For Referral No Information History Of Present Illness Encounter Date Complaint History Of Prese nt Illness extraction continue with tr eatment cervical spine cervical spine C/O neck pain wi th pain in left upper extremity when extending arm.No specific injury or trauma is noted. Pain primarily at the cervicobrachial area and extends out to the trap and scapular border on the LtPain interferes with regular ADL's. Increase in pain with movement/ROM and ADL'S. Some decrease in Sx with rest. No change in the pain pattern from the onset of Sx. No significant prior history of neck pain with this pattern. Dental Limited Dental Limited Functional Status Date Functional Assessmen t No Information Instructions Date Instruction Additional Infor mation No Information Assessments Type Assessment Date assessment Encounter for screening for dent al disorders Patient Care Teams Name Effective Dates (start - stop) Status Members No Information
--- OUTSIDE RECORDS SUMMARY | 2021-10-14 08:30 | XMS_ITS | Continuity of Care Document ---
Author Organization [facility] Address [address] [place] [address] [place] [address] Phone Care Team Providers Care Assistant Manager/Embalmer Name Role Phone Sarah Dunne Unavailable Unavailable Procedures Procedure Date PSYCH DIAGNOSTIC EVALUATION PSYCL/NRPSYC TST PHY/QHP [facility] PSYCL/NRPSYC TST PHY/QHP OFFICE/OUTPATIENT VISIT, [facility] Advance Directives Directive Yes / No Effective Date File Name No Information Encounters Encounter Description Practice Location Reason(s) For Visit Diagnoses Date Provider Providers Copied on Encounter PSYCH DIAGNOSTIC EVALUATION [facility], [address] [place] [address], [id number], [place] tel:[phone] [facility] Weight Loss Surgery No Information Uzair Smith. [address] [place] [address], [id number], [place]. tel:[phone] Referring Provider: Sarah Dunne, [address] [place] [address], [id number]. tel:[phone] OFFICE/OUTPATI ENT VISIT, [facility], [address] [place] [address], [id number], [place] tel:[phone] [facility] Weight Loss Surgery No Information Ibeth Hernandez. [address] [place] [address], [id number], [place]. tel:[phone] Referring Provider: David Parada, [address] [facility] [facility] [address], [place], [address]. tel:[phone] Family History Family Member Type Diagnosis Age At Onset No Information Payers Payer name Insurance type Covered constitution party ID Ophelia phillips(s) [facility] [employer] [place] [id number] Social History Type Description Quantity Date Captured [...]
--- OUTSIDE RECORDS SUMMARY | 2024-08-17 14:45 | XMS_ITS | Encounter Summary ---
Author Organization [facility] Address [address] [place] [address] Care Team Providers Care Hot Walker Name Role Phone Navarro Haider MD Primary Care Provider [phone] Vida Villa REPAIRER [employer]ICKS Unavailable [phone] Reason for Referral * Imaging (Routine) - Authorized Specialty Diagnoses / Procedures Referred By Contac t Referred To Contact Cardiology Diagnoses Primary hypertension History of bacterial endocarditis Procedures Echocardiogram 2D complete Navarro Haider MD [address] [place] [address] Phone: tel: fax: [facility] [address] [place] [address] Phone: tel: fax: Referral ID Status Reason Start Date Expiration Date Visits Requested Visits Authorized [id number] Authorized Perform Procedure 08/17/2024 02/13/2025 1 1 Reason for Visit * Reason Comments Follow-up 1 m Rash On left arm Encounter Details Date Type Department Care Team (Late Contact Info) Description 08/17/2024 2:45 PM EDT Office Visit [facility] [address] [place] [address] Navarro Haider MD [address] [place] [address] Primary hypertension (Primary Dx); History of bacterial endocarditis; Anemia, unspecified type; Class 3 severe obesity due to excess calories with serious comorbidity and body mass index (BMI) of 45.0 to 49.9 in adult ([facility]) Social History Tobacco Use Types Packs/Day Years [...] (BMI) of 45.0 to 49.9 in adult ([facility]) Patient overweight and difficult time losing weight. [...] reviewed. Continue medications as prescribed. Refer to orientor. * Navarro Haider MD - 08/17/2024 3:25 [...] index (BMI) of45.0 to 49.9 in adult ([facility]) Patient overweight and difficult time losing weight. [...] reviewed. Continue medications as prescribed. Refer to orientor. Relevant Medications phentermine (Adipex-P) 37.5 MG tablet [...] Visit [facility] [address] [place] [address] Navarro Haider MD [address] [place] [address] 08/30/2025 3:00 PM EDT Office Visit [facility] [address] [place] [address] Nadira Hudson PA [address] [place] [address] Scheduled Orders Name Type Priority Associated Diagnoses [...] CITY) documented in this encounter Care Teams Hot Walker Relationship Specialty Start Date End Date Navarro Haider MD [address] [place] [address] PCP - General Family Medicine 09/15/23 Vida Villa NP [address] [place] [address] Nurse Practitioner Family Medicine 09/15/23 documented as of this encounter
--- OUTSIDE RECORDS SUMMARY | 2024-08-24 15:00 | XMS_ITS | Encounter Summary ---
Author Organization [facility] Address [address] [facility] [place] [address] Care Team Providers Care Employment Representative Name Role Phone Navarro Haider MD Primary Care Provider [phone] Vida Villa RESIDENTIAL MENTAL HEALTH WORKER Unavailable [phone] Reason for Visit * Reason Comments Well Women Visit Encounter Details Date Type Department Care Team (Late st Contact Info) Description 08/24/2024 3:00 PM EDT Office Visit [facility] [address] [facility] [address] [place] [address] Nadira Hudson PA [address] [place], [id number] Well woman exam with routine gynecological exam Social History Tobacco Use Types Packs/Day Years [...] Sign Reading Time Taken Comments Blood Pressure 122/76 08/24/2024 3:18 PM EDT Pulse - - Temperature - - Respiratory Rate - - Oxygen Saturation - - Inhaled Oxygen Concentration - - Weight 142 kg (312 lb) 08/24/2024 3:18 PM EDT Height - - Body Mass Index 47.44 08/17/2024 2:59 PM EDT documented in this encounter Progress Notes * KEHINDE Salas - 08/24/2024 3:00 PM EDT Reason for Appointment: Patient ID: Alesha Kenney is a 39 y.o. female who presents for Well Women Visit Patient presents today for Annual Exam. MEDICATIONS Current Outpatient Medications Medication Instructions albuterol HFA 90 mcg/act inhaler 2 puffs, Inhalation, Every 4 hours PRN Buprenorphine HCl-Naloxone HCl (Suboxone) 8-2 MG SL film 2 Film, Daily cholecalciferol (VITAMIN D-3) 20 mcg, Oral, Daily etonogestrel-eluting (Nexplanon) 68 mg contraceptive implant 1 each, Once folic acid (FOLVITE) 1 mg, Oral, Daily hydroCHLOROthiazide (HYDRODIURIL) 12.5 mg, Oral, Daily hydrOXYzine HCl (ATARAX) 25 mg, Oral, 4 times daily PRN losartan (COZAAR) 25 mg, Oral, Daily metFORMIN XR (GLUCOPHAGE-XR) 500 mg, Oral, Daily with evening meal, Do not crush, chew, or split. mupirocin (Bactroban) 2 % ointment APPLY TOPICALLY IN THE MORNING AND BEFORE BEDTIME FOR 5 DAYS naloxone (NARCAN) 4 mg, As needed phentermine (ADIPEX-P) 37.5 mg, Oral, Daily before breakfast predniSONE (Deltasone) 10 MG tablet 6 PO daily x 3 days, 4 PO daily x 3 days, 2 PO daily x 3 days, 1 PO daily x 3 days ALLERGIES Allergies Allergen Reactions Vancomycin Anaphylaxis Lips swell cant breath Bactrim Ds [Sulfamethoxazole-Trimethoprim] Ciprofloxacin Codeine Other Reaction(s): Unknown Hydrocodone-Acetaminophen Unknown Macrobid [Nitrofurantoin] Hives Penicillin G Other Reaction(s): SOB/ITCHING Penicillins Tramadol Unknown PROBLEMS Active Ambulatory Problems Diagnosis Date Noted Class 3 severe obesity due to excess calories with serious comorbidity and body mass index (BMI) of45.0 to 49.9 in adult ([facility]) 03/03/2023 Opioid use disorder in remission 03/03/2023 Current smoker 03/03/2023 History of heroin abuse ([facility]) 12/27/2017 Hx of methicillin resistant Staphylococcus aureus infection 12/26/2017 Hepatitis C antibody test positive 09/22/2022 Wellness examination 04/05/2023 Anemia 04/19/2023 Primary hypertension 03/09/2024 Urticaria 07/19/2024 Allergic reaction due to antibacterial drug 07/19/2024 History of bacterial endocarditis 08/17/2024 Resolved Ambulatory Problems Diagnosis Date Noted URI, acute 03/03/2023 Bacterial endocarditis ([facility]) 12/26/2017 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 ([facility]) 04/05/2023 Blood pressure elevated without history of HTN 04/05/2023 Acute cough 04/05/2023 Shoulder blade pain 04/19/2023 Other chest pain 04/19/2023 Lesion of left external ear 05/05/2023 Rash and nonspecific skin eruption 05/26/2023 Ingrown fingernail 08/12/2023 Skin lesion 08/12/2023 Encounter for weight management 10/11/2023 Acute paronychia of right thumb 03/09/2024 Fatigue 03/13/2024 Past Medical History: Diagnosis Date Allergies Endocarditis Endometriosis Gestational diabetes ([facility]) Hepatitis C History of endocarditis in adulthood Obesity, morbid ([facility]) Opioid abuse ([facility]) Substance abuse ([facility]) Tobacco user HISTORY PAST MEDICAL HISTORY SOCIAL HISTORY Past Medical History: Diagnosis Date Allergies Endocarditis Endometriosis Gestational diabetes ([facility]) Hepatitis C History of endocarditis in adulthood Obesity, morbid ([facility]) Opioid abuse ([facility]) Substance abuse ([facility]) Tobacco user Social History Tobacco Use Smoking status: Some Days Types: Cigarettes Passive exposure: Current Smokeless tobacco: Never Tobacco comments: Thinking about quitting Vaping Use Vaping status: Every Day Substances: Nicotine, Flavoring Devices: Pre-filled or refillable cartridge Passive vaping exposure: Yes Substance Use Topics Alcohol use: Not Currently Drug use: Yes Types: Other Comment: Opioid abuse: suboxone FAMILY HISTORY Family History Problem Relation Name Age of Onset Hypertension Mother Alcohol abuse Mother No Known Problems Brother No Known Problems Daughter No Known Problems Daughter SURGICAL HISTORY Past Surgical History: Procedure Laterality Date SECTION, CLASSIC 01/12/2023 SECTION, LOW TRANSVERSE 2008 AND 2012 CHOLECYSTECTOMY 2014 REVIEW OF SYSTEMS Review of Systems: Review of Systems Constitutional: Negative. HENT: Negative. Eyes: Negative. Respiratory: Negative. Cardiovascular: Negative. Gastrointestinal: Negative. Genitourinary: Negative. Musculoskeletal: Negative. Skin: Negative. Neurological: Negative. All other systems reviewed and are negative. Hematological: Negative. Endocrine: Negative. Allergic/Immunologic: Negative. OBJECTIVE Objective: Physical Exam Constitutional: Appearance: Normal appearance. She is well-developed. Genitourinary: Vulva normal. Right Adnexa: not tender and no mass present. Left Adnexa: not tender and no mass present. No cervical discharge. Breasts: Breasts are soft. Right: Normal. Left: Normal. HENT: Head: Normocephalic. Nose: Nose normal. Mouth/Throat: Mouth: Mucous membranes are moist. Cardiovascular: Rate and Rhythm: Normal rate and regular rhythm. Pulmonary: Effort: Pulmonary effort is normal. Breath sounds: Normal breath sounds. Abdominal: General: Bowel sounds are normal. There is no distension. Palpations: Abdomen is soft. Tenderness: There is no abdominal tenderness. There is no guarding or rebound. Musculoskeletal: General: No swelling. Normal range of motion. Cervical back: Normal range of motion. Right lower leg: No edema. Left lower leg: No edema. Neurological: General: No focal deficit present. Mental Status: She is alert and oriented to person, place, and time. Skin: General: Skin is warm and dry. Psychiatric: Mood and Affect: Mood normal. Behavior: Behavior normal. Vitals and nursing note reviewed. Exam conducted with a lead relay tester present. Vitals: Estimated body mass index is 47.44 kg/m?? as calculated from the following: Height as of 08/17/24: 5' 8 . Weight as of this encounter: 312 lb. BP: 122/76 No LMP recorded. ASSESSMENT & PLAN ICD-10-CM 1. Well woman exam with routine gynecological exam Z01.419 Pap Smear HPV DNA probe, amplified Annual Exam: Patient presents today for an annual exam. Patient states she is doing well and has no complaints. Pap was obtained without difficulty. Orders Placed This Encounter Procedures HPV DNA probe, amplified Follow Up: Patient is to return in one year for annual unless needed otherwise. Documented by Karen Domingo LPN on behalf of: KEHINDE Salas documented in this encounter Plan of Treatment Upcoming Encounters Date Type Department Care Team (May st Contact Info) Description 09/19/2024 2:00 PM EDT Office Visit [facility] [address] [place] [address] Navarro Haider MD [address] [place] [address] 08/30/2025 3:00 PM EDT Office Visit [facility] [address] [facility] [address] [place] [phone] Nadira Hudson PA [address] [place] [address] Scheduled Orders Name Type Priority Associated Diagnoses Orde r Schedule Pap Smear Pathology and Cytology Routine Well woman exam with routine gynecological exam Ordered: 08/24/2024 HPV DNA probe, amplified Microbiology Routine Well woman exam with routine gynecological exam Ordered: 08/24/2024 documented as of this encounter Visit Diagnoses Diagnosis Well woman exam with routine gynecological exam Routine gynecological examination documented in this encounter Care Teams Employment Representative Relationship Specialty Start Date End Date Navarro Haider MD [address] [place] [address] PCP - General Family Medicine 09/15/23 Vida Villa NP [address] [place] [address] Nurse Practitioner Family Medicine 09/15/23 documented as of this encounter
--- OUTSIDE RECORDS SUMMARY | 2024-08-24 19:08 | XMS_ITS | Encounter Summary ---
Author Organization [facility] Address [address] [place] [address] Care Team Providers Care Radio Sportscaster Name Role Phone Vida Villa APRN - BEATRIZ Primary Care Pro vider Unavailable Reason for Visit * Reason Comments Medication Refill Encounter Details Date Type Department Care Team (Late st Contact Info) Description 01/13/2015 Refill [facility] [place] [address] [place] [address] Adonay Gordillo MD [address] [place] [address] Dr [address] [place] [id number] Medication Refill Social History Tobacco Use Types [...] 12/29/2017. endocarditis at [facility] in [place] approximately 6 months ago. 12/29/2017 12/27/2017 documented as of this encounter Care Teams Radio Sportscaster Relationship Specialty Start Date End Date Vida Villa APRN - NP PCP - General Nurse Practitioner 05/11/24 documented as of this encounter
--- OUTSIDE RECORDS SUMMARY | 2024-08-24 19:08 | XMS_ITS | Encounter Summary ---
Author Organization [facility] Address [address] [place] [address] Care Team Providers Care Drilling Machine Operator Name Role Phone Shaikh LINDA Garland Primary Care Provider [phone] Navarro Haider MD Primary Care Provider [phone] Vida Villa SENIOR WEB ENGINEER Unavailable [phone] Encounter Details Date Type Department Care Team (Late Contact Info) Description 09/13/2023 Orders Only [facility] [address] [place] [address] Shaikh Garland MD [address] [place] [address] Social History Tobacco Use Types Packs/Day Years [...] 09/19/2024 2:00 PM EDT [facility] [address] [place] [address] Navarro Haider MD [address] [place] [address] 08/30/2025 3:00 PM EDT Office Visit [facility] OB [address] [facility] [address] Nadira Hudson PA [address] [facility] [place] [address] documented as of this encounter Visit Diagnoses Not on filedocumented in this encounter Care Teams Drilling Machine Operator Relationship Specialty Start Date End Date Shaikh Garland MD [address] [place] [address] PCP - General Internal Medicine 04/19/23 09/14/23 Navarro Haider MD [address] [place] [address] PCP - General Family Medicine 09/15/23 Vida Villa NP [address] [place] [address] Nurse Practitioner Family Medicine 09/15/23 documented as of this encounter
--- OUTSIDE RECORDS SUMMARY | 2024-08-24 19:08 | XMS_ITS | Encounter Summary ---
Author Organization [facility] Address [address] [facility] [place] [address] Care Team Providers Care Purchasing Director Name Role Phone Navarro Haider MD Primary Care Provider [phone] Vida Villa ELECTRICAL TEST ENGINEER Unavailable [phone] Encounter Details Date Type Department Care Team (Late Contact Info) Description 08/24/2024 Bamboo flowsheet [facility] [address] [facility] [place] [address] Nadira Hudson PA [address] [facility] [address] [place], [facility] Social History Tobacco Use Types Packs/Day Years [...] Department Care Team (Late Contact Info) Description 09/19/2024 2:00 PM EDT [facility] [address] [place] [address] Navarro Haider MD [address] [place] [address] 08/30/2025 3:00 PM EDT Office Visit [facility] OB [address] [facility] [place] [address] Nadira Hudson PA [address] [facility] [place] [address] documented as of this encounter Visit Diagnoses Not on filedocumented in this encounter Care Teams Purchasing Director Relationship Specialty Start Date End Date Navarro Haider MD [address] [place] [address] PCP - General Family Medicine 09/15/23 Vida Villa NP [address] [place] [address] Nurse Practitioner Family Medicine 09/15/23 documented as of this encounter
--- OUTSIDE RECORDS SUMMARY | 2024-08-24 19:08 | XMS_ITS | Encounter Summary ---
Author Organization [facility] Address [address] [place] [address] Care Team Providers Care Technology Support Analyst Name Role Phone Vida Villa SET UP OPERATOR TOOL - LAB TECHNOLOGIST Primary Care Pro vider Unavailable Encounter Details Date Type Department Care Team (Late st Contact Info) Description 05/01/2016 FollowUp Telephone Encounter [facility] 2- Stepdown [address] [place] [id number] Prem Kramer RN Social History Tobacco Use [...] Comment:MRSA respiratory culture on 12/29/2017. endocarditis at [facility] approximately 6 months ago. 12/29/2017 12/27/2017 documented as of this encounter Care Teams Technology Support Analyst Relationship Specialty Start Date End Date Vida Villa APRN - NP PCP - General Nurse Practitioner 05/11/24 documented as of this encounter
--- OUTSIDE RECORDS SUMMARY | 2024-08-24 19:08 | XMS_ITS | Encounter Summary ---
Author Organization [facility] Address [address] [place] [address] Care Team Providers Care Tow Mate Name Role Phone Navarro Haider MD Primary Care Provider [phone] Vida Villa SAXOPHONE TEACHER Unavailable [phone] Encounter Details Date Type Department Care Team (Late Contact Info) Description 08/17/2024 Bamboo flowsheet [facility] [address] [place] [address] Navarro Haider MD [address] [place] [address] Social History Tobacco Use Types Packs/Day Years [...] Upcoming Encounters Date Type Department Care Team ([facility] Contact Info) Description 09/19/2024 2:00 PM EDT Office Visit [facility] [address] [place] [address] Navarro Haider MD [address] [place] [address] 08/30/2025 3:00 PM EDT Office Visit [facility] OB [address] [place] [address] Nadira Hudson PA [address] [facility] [address] [place], [place] [address] documented as of this encounter Visit Diagnoses Not on filedocumented in this encounter Care Teams Tow Mate Relationship Specialty Start Date End Date Navarro Haider MD [address] [place] [address] PCP - General Family Medicine 09/15/23 Vida Villa NP [address] [place] [address] Nurse Practitioner Family Medicine 09/15/23 documented as of this encounter
--- OUTSIDE RECORDS SUMMARY | 2024-08-24 19:08 | XMS_ITS | Encounter Summary ---
Author Organization [facility] Address [address] [place] [address] Care Team Providers Care Quill Buncher And Sorter Name Role Phone Vida Villa APRN - BEATRIZ Primary Care Pro vider Unavailable Reason for Visit * Reason Comments Medication Refill Encounter Details Date Type Department Care Team (Late st Contact Info) Description 12/21/2014 Refill [facility] [place] [address] [place] [address] Adonay Gordillo MD [address] [place] [address] [address] [place] [phone] Medication Refill Social History Tobacco Use Types [...] Comment:MRSA respiratory culture on 12/29/2017. endocarditis at [facility] in [place] approximately 6 months ago. 12/29/2017 12/27/2017 documented as of this encounter Care Teams Quill Buncher And Sorter Relationship Specialty Start Date End Date Vida Villa APRN - NP PCP - General Nurse Practitioner 05/11/24 documented as of this encounter
--- OUTSIDE RECORDS SUMMARY | 2024-08-24 19:09 | XMS_ITS | Encounter Summary ---
Author Organization [facility] Address [address] [place] [id number] Care Team Providers Care Jewel Diameter Gauger Name Role Phone Unavailable Primary Care Provider Unavailabl e Encounter Details Date Type Department Care Team (Late st Contact Info) Description 12/23/2020 Abstract PATIENT ACUITY SCORE Social History Tobacco Use Types Packs/Day Years Used Date Smoking Tobacco: Never Assessed Comments Unknown Sex and Gender Information Value Date Recorded Sex Assigned at Not on file Legal Sex Female 2:01 PM EDT Gender Identity Not on file Sexual Orientation Not on file documented as of this encounter Plan of Treatment Not on file documented as of this encounter Visit Diagnoses Not on filedocumented in this encounter
--- OUTSIDE RECORDS SUMMARY | 2024-08-24 19:09 | XMS_ITS | Encounter Summary ---
Author Organization [facility] Address [address] [place] [address] Care Team Providers Care Food Service Hotel Runner Name Role Phone Shaikh LINDA Garland Primary Care Provider [phone] Shaikh LINDA Garland Primary Care Provider [phone] Navarro Haider MD Primary Care Provider [phone] Vida Villa TELECOMMUNICATIONS ENGINEER Unavailable Encounter Details Date Type Department Care Team (Late st Contact Info) Description 12/18/2022 Clinisync Result Encounter [facility] External Department Unsolicited Jessica Yanez DO [address] [place] [address] [place] [address] Social History Tobacco Use Types [...] 09/19/2024 2:00 PM EDT [facility] [address] [place] [address] Navarro Haider MD [address] [place] [address] 08/30/2025 3:00 PM EDT Office Visit [facility] OB [address] [facility] [address] Nadira Hudson PA [address] [facility] [address] [place], [facility] documented as of this encounter Procedures Procedure Name Priority Date/Time Associated Diagnosis Comments US OB BPP W NON-STRESS 12/18/2022 5:55 PM EDT documented in this encounter Results * US OB BPP W NON-STRESS (12/18/2022 5:55 PM EDT) Anatomical Region Laterality Modality Other 12/18/2022 5:55 PM EDT Narrative 12/18/2022 5:55 [place] [address] Ultrasound Report Signed Patient: ALESHA HALL MR#: [id number] : 1985 Acct:[id number] Age/Sex: 37 / F ADM Date: 12/17/22 Loc: US Attending Dr: Jessica Yanez D.O. Ordering Physician: Jessica Yanez D.O. Date of Service: 12/17/22 Procedure(s): US OB BPP w non-stress Accession Number(s): [id number] cc: Shaikh Irasema Garland; Jessica Yanez D.O. The [address] [address] Patient Name: ALESHA HALL MRN: [id number] date: 1985 Sex: F Assigned Patient Location: [facility] Current Patient Location: Accession/Order Number: [id number] Exam Date: 12/17/2022 15:00 Report Date: 12/18/2022 [...] M.D. Signed By: 12/18/221756 DD/ 54 TD/TT: Airport Tower Controller: Procedure Note Radiology, Radiologist, - 12/18/2022 [place] [address] Ultrasound Report Signed Patient: ALESHA HALL AMR#: [id number] : 1985Acct:[id number] Age/Sex: 37 / FADM Date: 12/17/22 Loc: US Attending Dr: Jessica Yanez D.O. Ordering Physician: Jessica Yanez D.O. Date of Service: 12/17/22 Procedure(s): US OB BPP w non-stress Accession Number(s): [id number] cc: Shaikh Irasema Garland; Jessica Yanez D.O. [place] [address] Patient Name: ALESHA HALL MRN: [id number] date: 1985 Sex: F Assigned Patient Location: [facility] Current Patient Location: Accession/Order Number: [id number] Exam Date: 12/17/2022 15:00 Report Date: 12/18/2022 [...] Dykes M.D. Signed By:12/18/221756 DD/ 54 TD/TT: Airport Tower Controller: us Jessica Beau DO [facility] Final Result documented in this encounter Visit Diagnoses Not on filedocumented in this encounter Care Teams Food Service Hotel Runner Relationship Specialty Start Date End Date Shaikh Garland MD PCP - General Internal Medicine 07/28/22 04/18/23 Shaikh Garland MD [address] [place] [address] PCP - General Internal Medicine 04/19/23 09/14/23 Navarro Haider MD [address] [place] [address] PCP - General Family Medicine 09/15/23 Vida Villa NP [address] [place] [address] Nurse Practitioner Family Medicine 09/15/23 documented as of this encounter
--- OUTSIDE RECORDS SUMMARY | 2024-08-24 19:09 | XMS_ITS | Encounter Summary ---
Author Organization [facility] Address [address] [place] [address] Care Team Providers Care As400 Operator Name Role Phone Navarro Haider MD Primary Care Provider [phone] Vida Villa NP Unavailable [phone] Reason for Referral * Consultation (Routine) - Authorized Specialty Diagnoses / Procedures Referred By Carmen pham Referred To Contact Gastroenterology Diagnoses Positive occult stool blood test Procedures SC OFFICE/OUTPATIENT NEW HIGH MDM 60 MINUTES Vida Villa NP [address] [place] [address] fax: Angeles Sampson MD [address] [place] [address] Phone: tel: fax: Referral ID Status Reason Start Date Expiration Date Visits Requested Visits Authorized [id number] Authorized Specialty Services Required 03/23/2024 09/19/[address] Angeles Sampson [place], [place] [phone] Encounter Details Date Type Department Care Team (Late st Contact Info) Description 03/23/2024 Orders Only [facility] [address] [place] [address] Vida Villa NP Positive occult stool blood [...] Visit [facility] [address] [place] [address] Navarro Haider MD [address] [place] [address] 08/30/2025 3:00 PM EDT Office Visit [facility] OB [address] [place] [address] Nadira Hudson PA [address] [facility] [address] [place], [place] [address] Scheduled Referrals Name Type Priority Associated Diagnoses Order Schedule Ambulatory referral to Gastroenterology Outpatient Referral Routine Positive occult stool blood test Expected: 03/23/2024 (Approximate), Expires: 09/20/2024 documented as of this encounter Visit Diagnoses Diagnosis Positive occult stool blood test- Primary Nonspecific abnormal finding in stool contents documented in this encounter Care Teams As400 Operator Relationship Specialty Start Date End Date Navarro Haider MD [address] [place] [address] PCP - General Family Medicine 09/15/23 Vida Villa NP [address] [place] [address] Nurse Practitioner Family Medicine 09/15/23 documented as of this encounter
--- OUTSIDE RECORDS SUMMARY | 2024-08-24 19:09 | XMS_ITS | Clinical Summary ---
Author Organization [employer] Address [id number] [address] [place] [address] Care Team Providers Care Rn New Grad Name Role Phone Tevin Bush MD Primary Care Provider [phone] Allergies Active Allergy Reactions Criticality Noted Date Comments Codeine 08/27/2022 Penicillins 08/27/2022 Medications [id number] c acid ( 19) 29 mg iron- [...] Not on file Insurance MEDICAID Care Teams Rn New Grad Relationship Specialty Start Date End Date Tevin Bush MD PCP - General 07/19/17
--- OUTSIDE RECORDS SUMMARY | 2024-08-24 19:09 | XMS_ITS | Encounter Summary ---
Author Organization [facility] Address [address] [place] [address] Care Team Providers Care Voice Writing Reporter Name Role Phone Shaikh LINDA Garland Primary Care Provider [phone] Shaikh LINDA Garland Primary Care Provider [phone] Navarro Haider MD Primary Care Provider [phone] Vida Villa SENIOR HRIS ANALYST Unavailable [phone] Reason for Visit * Reason Comments Med Refill Encounter Details Date Type Department Care Team (Late st Contact Info) Description 02/09/2023 [facility] [address] [place] [address] Shaikh Garland MD [address] [place] [address] Psychophysiological insomnia (Primary Dx) Social History Tobacco [...] [facility] [address] [place] [address] Navarro Haider MD [address] [place] [address] 08/30/2025 3:00 PM EDT Office Visit [facility] OB [address] [facility] [place] [address] Nadira Hudson PA [address] [facility] [address] [place], [place] [address] documented as of this encounter Visit Diagnoses Diagnosis Psychophysiological insomnia- Primary Persistent disorder of initiating or maintaining sleep documented in this encounter Care Teams Voice Writing Reporter Relationship Specialty Start Date End Date Shaikh Garland MD PCP - General Internal Medicine 07/28/22 04/18/23 Shaikh Garland MD [address] [place] [address] PCP - General Internal Medicine 04/19/23 09/14/23 Navarro Haider MD [address] [place] [address] PCP - General Family Medicine 09/15/23 Vida Villa NP [address] [place] [address] Nurse Practitioner Family Medicine 09/15/23 documented as of this encounter
--- OUTSIDE RECORDS SUMMARY | 2024-08-24 19:09 | XMS_ITS | Clinical Summary ---
Author Organization [facility] Address [address] [place] [address] Care Team Providers Care Component Prep Operator Name Role Phone Navarro Haider MD Primary Care Provider [phone] Vida Villa LIEUTENANT COLONEL Unavailable [phone] Allergies Active Allergy Reactions Criticality Noted Date Comments Sulfamethoxazole-Trimethopri m 08/12/2023 Ciprofloxacin 07/11/2024 Codeine 07/28/2022 Other Reaction(s): Unknown Hydrocodone-Acetaminophen Unknown 10/20/2012 Nitrofurantoin Hives 07/19/2024 Penicillin G 12/29/2022 Other Reaction(s): SOB/ITCHING Penicillins 07/28/2022 Tramadol Unknown 10/20/2012 Vancomycin Anaphylaxis High 12/26/2017 Lips swell cant breath Medications etonogestrel-elut ing (Nexplanon) 68 mg contraceptive implant 1 each by Implant route 1 (one) time Active Buprenorphine HCl-Naloxone HCl (Suboxone) 8-[address] 2 Film under the tongue Daily 05/03/19 24 Active hydroCHLOROthiazi de (HYDRODiuril) 12.5 MG tabletIndications :Blood pressure elevated without history of HTN Take 1 tablet (12.5 mg) by mouth Daily 30 tablet 11/23/19 24 025 Active naloxone (Narcan) 4 mg/0.1 mL nasal spray Administer 4 mg into affected nostril(s) if needed 03/02/19 25 Active losartan (Cozaar) 25 MG tabletIndications :Primary hypertension Take 1 tablet (25 mg) by mouth Daily 30 tablet 03/09/19 25 026 Active folic acid (Folvite) 1 MG tabletIndications :Anemia due to folic acid deficiency, unspecified deficiency type Take 1 tablet (1 mg) by mouth Daily 30 tablet 03/21/19 25 026 Active mupirocin (Bactroban) 2 % ointment APPLY TOPICALLY IN THE MORNING AND BEFORE BEDTIME FOR 5 DAYS 03/09/19 25 Active cholecalciferol (Vitamin D-3) 20 MCG (800 UNIT) tabletIndications :Vitamin D deficiency Take 1 tablet (20 mcg) by mouth Daily 90 tablet 06/20/19 25 Active albuterol HFA 90 mcg/act inhalerIndication s:URI, acute Inhale 2 puffs every 4 (four) hours if needed for wheezing or shortness of breath 18 g 2 07/14/19 25 Active predniSONE (Deltasone) 10 MG tabletIndications :Allergic reaction due to antibacterial drug 6 PO daily x 3 days, 4 PO daily x 3 days, 2 PO daily x 3 days, 1 PO daily x 3 days 39 tablet 07/20/19 25 Active hydrOXYzine HCl (Atarax) 25 MG tabletIndications :Urticaria Take 1 tablet (25 mg) by mouth 4 (four) times a day as needed for itching 60 tablet 2 07/20/19 25 Active metFORMIN XR (Glucophage-XR) 500 MG 24 hr tabletIndications :PCOS (polycystic ovarian syndrome) Take 1 tablet (500 mg) by mouth in the evening. Take with meals Do not crush, chew, or split. 30 tablet 07/26/19 25 026 Active phentermine (Adipex-P) 37.5 MG tabletIndications :Class 3 severe obesity due to excess calories with serious comorbidity and body mass index (BMI) of 45.0 to 49.9 in adult ([facility]) Take 1 tablet (37.5 mg) by mouth in the morning. Take before meals. 30 tablet 08/18/19 25 025 Active phentermine (Adipex-P) 37.5 MG tabletIndications :Class 3 severe obesity due to excess calories with serious comorbidity and body mass index (BMI) of 45.0 to 49.9 in adult ([facility]),Encount er for weight management Take 1 tablet (37.5 mg) by mouth in the morning. Take before meals. 30 tablet 06/27/19 25 025 Discontinu ed(Reorder ) clindamycin (Cleocin) 300 MG capsuleIndication s:Dental abscess Take 1 capsule (300 mg) by mouth in the morning and 1 capsule (300 mg) at noon and 1 capsule (300 mg) in the evening and 1 capsule (300 mg) before bedtime. Do all this for 10 days. 40 capsule 08/09/19 25 025 phentermine (Adipex-P) 37.5 MG tabletIndications :Class 3 severe obesity due to excess calories with serious comorbidity and body mass index (BMI) of 45.0 to 49.9 in adult ([facility]) Take 1 tablet (37.5 mg) by mouth in the morning. Take before meals. 30 tablet 08/18/19 25 025 Discontinu ed(Reorder ) Active Problems Problem Noted Date Diagnosed Date History of bacterial endocarditis 08/17/2024 Assessment & Plan (08/17/2024 3:25 PM EDT): Repeat echo. Urticaria 07/19/2024 Assessment & Plan (07/19/2024 1:44 PM EDT): Likely reaction to macrobid. Treat with high dose prednisone and use atarax PRN. Follow with tenoner operator. Allergic reaction due to antibacterial drug 05/2024 Assessment & Plan (07/19/2024 1:44 PM EDT): Likely reaction to macrobid. Treat with high dose prednisone and use atarax PRN. Follow with tenoner operator. Primary hypertension 03/09/2024 Assessment & Plan (08/17/2024 3:25 PM EDT): BP controlled and monitor PRN. Assessment & Plan (06/26/2024 2:30 PM EDT): [...] next visit. Anemia 04/19/2023 Assessment & Plan (08/17/2024 3:25 PM EDT): Repeat labs. Assessment & Plan (04/19/2023 7:17 PM EST): [...] day. Consider tracking your food intake on MyCFX BATTERYinessPal or LoseIt Water: Increase water intake; GOAL [...] GOAL 6-8 hours of sleep per night. Class 3 severe obesity due t o excess calories with serious comorbidity and body mass index (BMI) of 45.0 to 49.9 in adult 03/03/2023 Assessment & Plan (08/17/2024 3:25 PM EDT): Patient overweight and difficult time [...] reviewed. Continue medications as prescribed. Refer to development vice president. Assessment & Plan (06/26/2024 2:28 PM EDT): [...] reviewed. Continue medications as prescribed. Refer to development vice president. Assessment & Plan (11/23/2023 4:11 PM EDT): [...] Plan (11/23/2023 9:41 PM EDT): Follows with [facility]. Was seeing Hope Mccaule[facility]. Currently takes Suboxone daily. Current smoker 03/03/2023 [...] day. Consider tracking your food intake on MyCFX BATTERYinessPal or LoseIt Water: Increase water intake; GOAL [...] worsening or persistent symptoms. Trial of Flonase. URI, acute 03/03/2023 07/19/2024 Assessment & Plan (06/26/2024 2:30 PM EDT): [...] Asked to call office if worsening symptoms. Bacterial endocarditis ([facility]) 12/26/2017 06/26/2024 Overview (04/05/2023): Hx of and suspected current Encounters Date Type Department Care Team Description 08/24/2024 3:00 PM EDT [facility] Visit [facility] [address] [place] [address] Nadira Hudson PA Well woman exam with routine gynecological exam 08/24/2024 Bamboo flowsheet [facility] [address] [place] [address] Nadira Hudson PA 08/17/2024 2:45 PM EDT Office Visit [facility] [address] [place] [address] Navarro Haider MD Primary hypertension (Primary Dx); History of bacterial endocarditis; Anemia, unspecified type; Class 3 severe obesity due to excess calories with serious comorbidity and body mass index (BMI) of 45.0 to 49.9 in adult ([facility]) 08/17/2024 Telephone [facility] [address] [place] [address] Navarro Haider MD 08/17/2024 Bamboo flowsheet [facility] [address] [place] [address] Navarro Haider MD 08/08/2024 Telephone [facility] [address] [place] [address] Navarro Haider MD antibiotic for abcess in mouth 07/27/2024 4:00 PM EDT Office Visit [facility] [address] [place] [address] Rufino Cm, DPM Verruca plantaris (Primary Dx); Foot pain, right 07/27/2024 Bamboo flowsheet [facility] [address] [place] [address] Rufino Cm DPM 07/27/2024 Travel 07/25/[address] [facility] [address] [place] [address] Sharee Riggs, AGING ROOM HAND 07/19/2024 1:00 PM EDT Office Visit [facility] [address] [place] [address] Navarro Haider MD Allergic reaction due to antibacterial drug (Primary Dx); Urticaria 07/19/2024 Bamboo flowsheet [facility] [address] [place] [address] Navarro Haider MD 07/17/2024 Orders Only [facility] [address] [place] [address] Jd Alcazar PA 07/13/2024 2:40 PM EDT Office Visit [facility] [address] [place] [address] Rufino Cm, DPM Verruca plantaris (Primary Dx); Foot pain, right 07/13/2024 Travel 07/13/2024 Refill [facility] [address] [place] [address] Navarro Haider MD URI, acute 07/11/2024 Telephone [facility] [address] [place] [address] Navarro Haider MD uti 06/26/2024 1:30 PM EDT Office Visit [facility] [address] [place] [address] Navarro Haider MD Primary hypertension (Primary Dx); URI, acute; Class 3 severe obesity due to excess calories with serious comorbidity and body mass index (BMI) of 45.0 to 49.9 in adult ([facility]); Encounter for weight management; Opioid dependence, uncomplicated ([facility]) 06/26/2024 Telephone [facility] [address] [place] [address] Navarro Haider MD 06/26/2024 Bamboo flowsheet [facility] [address] [place] [address] Navarro Haider MD 06/19/2024 Refill [facility] [address] [place] [address] Navarro Haider MD Vitamin D deficiency 06/01/2024 4:30 PM EDT Office Visit [facility] [address] [place] [address] Rufino Cm DPM Verruca plantaris (Primary Dx); Foot pain, right 06/01/2024 Bamboo flowsheet [facility] [address] [place] [address] Rufino Cm DPM 06/01/2024 Travel from Last 3 Months Immunizations Immunization [...] Pressure 122/76 08/24/2024 3:18 PM EDT Pulse 82 08/17/2024 2:59 PM EDT Temperature 36.2 C (97.1 F) 08/17/2024 2:59 PM EDT Respiratory Rate 20 08/17/2024 2:59 PM EDT Oxygen Saturation 98% 08/17/2024 2:59 PM EDT Inhaled Oxygen Concentration - - Weight 142 kg (312 lb) 08/24/2024 3:18 PM EDT Height 172.7 cm (5' 8 ) 08/17/2024 2:59 PM EDT Body Mass Index 47.44 08/17/2024 2:59 PM EDT Plan of Treatment Upcoming Encounters Date Type Department Care Team (Late st Contact Info) Description 09/19/2024 2:00 PM EDT Office Visit [facility] [address] [place] [address] Navarro Haider MD [address] [place] [address] 08/30/2025 3:00 PM EDT Office Visit [facility] [address] [place] [address] Nadira Hudson PA [address] [place] [address] Health Maintenance Due Date Last Done Comments Influenza Vaccine (#1) 2024 03/11/2018 Cervical Cancer Screening 08/26/2027 Pap Smear 08/26/2027 08/25/2022, 01/01/2015 HPV/Cotest 10/02/2027 10/01/2022 Procedures Procedure Name Priority Date/Time Associated Diagnosis Comments XR CHEST 1 VIEW Routine 07/17/2024 1:46 PM EDT THINPREP PAP AND HPV MRNA E6/E7 W/RFL HPV 16,18/45 Routine 10/01/2022 3:44 PM EDT Well woman exam with routine gynecological exam PAP SMEAR Routine 08/25/2022 12:00 AM EDT from Last 3 Months or Most Recently Relevant to Health Maintenance Results * XR chest 1 view (07/17/2024 1:46 PM EDT) Anatomical Region Laterality Modality Chest Radiographic Estefania ging Jd [facility] IMG XR PROCEDURES Final Result * THINPREP PAP AND HPV MRNA E6/E7 W/RFL HPV 16,18/45 (10/01/2022 3:44 PM EDT) Nadira BUSBY LAB BLOOD ORDERABLES Final Resul t EXTERNAL LAB * Pap Smear (08/25/2022 12:00 AM EDT) Swab Cervical swab / Unknown Historical Provider LAB CYTOLOGY ORDERABLES F inal Result EXTERNAL LAB from Last 3 Months or Most Recently Relevant to Health Maintenance Insurance [facility] MEDICAID [place] Care Teams Component Prep Operator Relationship Specialty Start Date End Date Navarro Haider MD [address] [place] [address] PCP - General Family Medicine 09/15/23 Vida Villa NP [address] [place] [address] Nurse Practitioner Family Medicine 09/15/23
--- OUTSIDE RECORDS SUMMARY | 2024-08-24 19:09 | XMS_ITS | Clinical Summary ---
Author Organization [facility] Address [address] [place] [address] Care Team Providers Care Cosmetic Maker Name Role Phone Unavailable Primary Care Provider Unavailabl e Source Comments The following information is NOT included in Care Everywhere downloads:Psychiatric notes, ECG results, Cardiac Rehab notes, Pulmonary Function notes, data from [employer] (includes but not limited toPregnancy data,audiograms, eye exams, pre-surgical evaluation notes, well-child exam data).[facility] Allergies Active Allergy Reactions Criticality Noted Date Comments Hydrocodone-Acetaminophen Vomiting 09/09/2018 Tramadol Vomiting 09/09/2018 Immunizations Immunization Administration Dates Next Due Influenza, injectable, quadr ivalent, preservative (RMP=544) 03/11/2018 Social History Tobacco Use Types Packs/Day Years Used Date Smoking Tobacco: Never Assessed Comments Unknown Sex and Gender Information Value Date Recorded Sex Assigned at Not on file Legal Sex Female 2:01 PM EDT Gender Identity Not on file Sexual Orientation Not on file Last Filed Vital Signs Vital Sign Reading Time Taken Comments Blood Pressure 138/68 04/24/2019 12:33 AM EDT Pulse 114 04/24/2019 12:33 AM EDT Temperature 37.8 C (100.1 F) 04/24/2019 12:33 AM EDT Respiratory Rate 18 04/24/2019 12:33 AM EDT Oxygen Saturation 100% 04/24/2019 12:33 AM EDT Inhaled Oxygen Concentration - - Weight - - Height - - Body Mass Index - - Plan of Treatment Health Maintenance Due Date Last Done Comments Mammography (shared decision-making, age 35-39) 1985 HIV Test 2000 Hepatitis C Antibody 2003 Tdap Booster 2003 Hepatitis A (HAV) Vaccine (optional start 19+ years) 2004 Hepatitis B (HBV) Vaccine (1 of 3 - 19+ 3-dose series) 2004 Pap Smear 2006 HPV Vaccine (optional start 27-45 years) 2012 COVID-19 Vaccine (2023-2 5 season) 2023 Influenza Vaccine (#1) 2024 03/11/2018 Shingles (RZV) Vaccine (1 of 2) 2035 Mammography Discontinued Pneumococcal Vaccine(s) Aged Out No l onger eligible based on patient's age to complete this topic
--- OUTSIDE RECORDS SUMMARY | 2024-08-24 19:09 | XMS_ITS | Encounter Summary ---
Author Organization [facility] Address [address] [place] [address] Care Team Providers Care Chair And Couch Maker Name Role Phone Shaikh LINDA Garland Primary Care Provider [phone] Shaikh LINDA Garlnad Primary Care Provider [phone] Navarro Haider MD Primary Care Provider [phone] Vida Villa HAND SHOES SEWER Unavailable [phone] Encounter Details Date Type Department Care Team (Late st Contact Info) Description 12/18/2022 Clinisync Result Encounter [facility] External Department Unsolicited Jessica Yanez DO [address] [place] [address] [place] [address] Social History Tobacco Use Types [...] 09/19/2024 2:00 PM EDT Office Visit [facility] [address] [place] [address] Navarro Haider MD [address] [place] [address] 08/30/2025 3:00 PM EDT Office Visit [facility] [address] [facility] [place] [address] Nadira Hudson PA [address] [facility] [address] [place], [facility] documented as of this encounter Procedures Procedure Name Priority Date/Time Associated Diagnosis Comments US OB GROWTH 12/18/2022 5:59 PM EDT documented in this encounter Results * US OB GROWTH (12/18/2022 5:59 PM EDT) Anatomical Region Laterality Modality Other 12/18/2022 5:59 PM EDT Narrative 12/18/2022 5:59 PM EDT [address] [address] Ultrasound Report Signed Patient: ALESHA HALL MR#: [id number] : 1985 Acct:[id number] Age/Sex: 37 / F ADM Date: 12/17/22 Loc: US Attending Dr: Jessica Yanez D.O. Ordering Physician: Jessica Yanez D.O. Date of Service: 12/17/22 Procedure(s): US OB growth Accession Number(s): [id number] cc: Shaikh Irasema Garland; Jessica Yanez D.O. The [address] [address] Patient Name: ALESHA HALL MRN: [id number] date: 1985 Sex: F Assigned Patient Location: US Current Patient Location: US Accession/Order Number: [id number] Exam Date: 12/17/2022 15:00 Report Date: 12/18/2022 [...] Signed By: 12/18/22 180 DD/ 175 TD/TT: Turning Sander Operator: Procedure Note Radiology, Radiologist, - 12/18/2022 [place] [id number] Ultrasound Report Signed Patient: ALESHA HALL AMR#: [id number] : 1985Acct:[id number] Age/Sex: 37 / FADM Date: 12/17/22 Loc: US Attending Dr: Jessica Yanez D.O. Ordering Physician: Jessica Yanez D.O. Date of Service: 12/17/22 Procedure(s): US OB growth Accession Number(s): [id number] cc: Shaikh Irasema Garland; Jessica Yanez D.O. The [place] [address] Patient Name: ALESHA HALL MRN: [facility]:[id number] date: 1985 Sex: F Assigned Patient Location: US Current Patient Location: US Accession/Order Number: [id number] Exam Date: 12/17/2022 15:00 Report Date: 12/18/2022 [...] M.D. Signed By:12/18/22 180 DD/ 1759 TD/TT: Turning Sander Operator: us Jessica Yanez DO [facility] Final Result documented in this encounter Visit Diagnoses Not on filedocumented in this encounter Care Teams Chair And Couch Maker Relationship Specialty Start Date End Date Shaikh Garland MD PCP - General Internal Medicine 07/28/22 04/18/23 Shaikh Garland MD [address] [place] [address] PCP - General Internal Medicine 04/19/23 09/14/23 Navarro Haider MD [address] [facility] [place] [address] PCP - General Family Medicine 09/15/23 Vida Villa NP [address] [place] [address] Nurse Practitioner Family Medicine 09/15/23 documented as of this encounter
--- OUTSIDE RECORDS SUMMARY | 2024-08-24 19:09 | XMS_ITS | Encounter Summary ---
Author Organization [facility] Address [address] [place] [address] Care Team Providers Care Push Button Switch Assembler Name Role Phone Shaikh LINDA Garland Primary Care Provider [phone] Shaikh LINDA Garland Primary Care Provider [phone] Navarro Haider MD Primary Care Provider [phone] Vida Villa COSMETIC DENTIST Unavailable [phone] Encounter Details Date Type Department Care Team (Late st Contact Info) Description 09/08/2022 Abstract [facility] [address] [facility] [place] [address] Nadira Hudson PA [address] [facility] [address] [place], [place] [id number] Social History Tobacco Use Types Packs/Day Years [...] 09/19/2024 2:00 PM EDT [facility] [address] [place] [address] Navarro Haider MD [address] [place] [address] 08/30/2025 3:00 PM EDT Office Visit [facility] [address] [facility] [place] [address] Nadira Hudson PA [address] [facility] [place] [address] documented as of this encounter Visit Diagnoses Not on filedocumented in this encounter Care Teams Push Button Switch Assembler Relationship Specialty Start Date End Date Shaikh Garland MD PCP - General Internal Medicine 07/28/22 04/18/23 Shaikh Garland MD [address] [place] [address] PCP - General Internal Medicine 04/19/23 09/14/23 Navarro Haider MD [address] [place] [address] PCP - General Family Medicine 09/15/23 Vida Villa NP [address] [place] [address] Nurse Practitioner Family Medicine 09/15/23 documented as of this encounter
--- OUTSIDE RECORDS SUMMARY | 2024-08-24 19:09 | XMS_ITS | Encounter Summary ---
Author Organization [facility] Address [address] [place] [address] Care Team Providers Care Bead Flipper Name Role Phone Shaikh LINDA Garland Primary Care Provider [phone] Shaikh LINDA Garland Primary Care Provider [phone] Navarro Haider MD Primary Care Provider [phone] Vida Villa GAUGE MAKER Unavailable [phone] Encounter Details Date Type Department Care Team (Late st Contact Info) Description 07/28/2022 Abstract [facility] [address] [place] [address] Pankaj Yanez [address] [facility] [address] [place] [place], [place] [address] Social History Tobacco Use Types Packs/Day Years [...] [facility] [address] [place] [address] Navarro Haider MD [address] [place] [address] 08/30/2025 3:00 PM EDT Office Visit [facility] [address] [facility] [place] [place] [address] Nadira Hudson PA [address] [facility] [place] [address] documented as of this encounter Visit Diagnoses Not on filedocumented in this encounter Care Teams Bead Flipper Relationship Specialty Start Date End Date Shaikh Garland MD PCP - General Internal Medicine 07/28/22 04/18/23 Shaikh Garland MD [address] [place] [address] PCP - General Internal Medicine 04/19/23 09/14/23 Navarro Haider MD [address] [place] [address] PCP - General Family Medicine 09/15/23 Vida Villa NP [address] [place] [address] Nurse Practitioner Family Medicine 09/15/23 documented as of this encounter
--- OUTSIDE RECORDS SUMMARY | 2024-08-24 19:09 | XMS_ITS | Encounter Summary ---
Author Organization [facility] Address [address] [place] [address] Care Team Providers Care Router Operator Pin Name Role Phone Shaikh LINDA Garland Primary Care Provider [phone] Shaikh LINDA Garland Primary Care Provider [phone] Navarro Haider MD Primary Care Provider [phone] Vida Villa ROUTE SALES SPECIALIST Unavailable [phone] Encounter Details Date Type Department Care Team (Late st Contact Info) Description 01/21/2023 Orders Only [facility] [address] [place] [address] Pankaj Yanez, DO [address] [facility] [place] [address] Social History Tobacco Use Types [...] [facility] [address] [place] [address] Navarro Haider MD [address] [place] [address] 08/30/2025 3:00 PM EDT Office Visit [facility] [address] [place] [address] Nadira Hudson PA [address] [facility] [place] [address] documented as of this encounter Procedures Procedure [...] on filedocumented in this encounter Care Teams Router Operator Pin Relationship Specialty Start Date End Date Shaikh Garland MD PCP - General Internal Medicine 07/28/22 04/18/23 Shaikh Garland MD [address] [place] [address] PCP - General Internal Medicine 04/19/23 09/14/23 Navarro Haider MD [address] [place] [address] PCP - General Family Medicine 09/15/23 Vida Villa NP [address] [place] [address] Nurse Practitioner Family Medicine 09/15/23 documented as of this encounter
--- OUTSIDE RECORDS SUMMARY | 2024-08-24 19:09 | XMS_ITS | Encounter Summary ---
Author Organization [facility] Address [address] [place] [address] Care Team Providers Care Office Support Specialist Name Role Phone Vida Villa APRN - SOCIAL ECONOMIST Primary Care Pro vider Unavailable Reason for Visit * Reason Comments Other Encounter Details Date Type Department Care Team (Late st Contact Info) Description 03/16/2014 Refill [facility] [place] [address] [place] [address] Adonay Gordillo MD [address] [place] [address] Dr [address] [place] [id number] Other Social History Tobacco Use Types Packs/Day [...] Comment:MRSA respiratory culture on 12/29/2017. endocarditis at [facility] approximately 6 months ago. 12/29/2017 12/27/2017 documented as of this encounter Care Teams Office Support Specialist Relationship Specialty Start Date End Date Vida Villa APRN - NP PCP - General Nurse Practitioner 05/11/24 documented as of this encounter
--- OUTSIDE RECORDS SUMMARY | 2024-08-24 19:09 | XMS_ITS | Encounter Summary ---
Author Organization [facility] Address [address] [place] [id number] Care Team Providers Care Competitive Shopper Name Role Phone Unavailable Primary Care Provider Unavailabl e Encounter Details Date Type Department Care Team (Late st Contact Info) Description 02/15/2020 Abstract PATIENT ACUITY SCORE Social History Tobacco [...]
--- OUTSIDE RECORDS SUMMARY | 2024-08-24 19:09 | XMS_ITS | Encounter Summary ---
Author Organization [facility] [employer] s tem Address [id number] [address] [place] [address] Care Team Providers Care Restorative Aide Name Role Phone Tevin Bush MD Primary Care Provider + [phone] Encounter Details Date Type Department Care Team (Late st Contact Info) Description 09/02/2022 Orders Only Maternal- Medicine at [facility] [address] [place] [phone] Ref Prov, [place] [address] Social History Tobacco Use Types Packs/Day Years [...] Date/Time Associated Diagnosis Comments FREE CELL DNA (NON-[facility] SEND OUT) Routine 07/25/2022 2:14 PM EDT documented in this encounter Results * Free Cell DNA (07/25/2022 2:14 PM EDT) us Not In System Ref Prov LAB BLOOD ORDERABLES Zuly l Result MANUALLY TRANSCRIBED RESULTS documented in this encounter Visit Diagnoses Not on filedocumented in this encounter Care Teams Restorative Aide Relationship Specialty Start Date End Date Tevin Bush MD PCP - General 07/19/17 documented as of this encounter
--- OUTSIDE RECORDS SUMMARY | 2024-08-24 19:09 | XMS_ITS | Encounter Summary ---
Author Organization [facility] Address [address] [place] [address] Care Team Providers Care Chemistry Quality Control Technician Name Role Phone Navarro Haider MD Primary Care Provider [phone] Vida Villa WALLPAPER INSTALLER Unavailable [phone] Encounter Details Date Type Department Care Team (Late Contact Info) Description 07/17/2024 Orders Only [facility] [address] [place] [address] Jd Alcazar PA [address] [place] [address] Social History Tobacco Use Types [...] 09/19/2024 2:00 PM EDT Office Visit [facility] [address] [place] [address] Navarro Haider MD [address] [place] [address] 08/30/2025 3:00 PM EDT Office Visit [facility] [address] [facility] [place] [address] Nadira Hudson PA [address] [place] [address] documented as of this encounter Procedures Procedure Name Priority Date/Time Associated Diagnosis Comments XR CHEST 1 VIEW Routine 07/17/2024 1:46 PM EDT documented in this encounter Results * XR chest 1 view (07/17/2024 1:46 PM EDT) Anatomical Region Laterality Modality Chest Radiographic Estefania ging Jd BUSBY IMG XR PROCEDURES Final Result documented in this encounter Visit Diagnoses Not on filedocumented in this encounter Care Teams Chemistry Quality Control Technician Relationship Specialty Start Date End Date Navarro Haider MD [address] [place] [address] PCP - General Family Medicine 09/15/23 Vida Villa NP [address] [place] [address] Nurse Practitioner Family Medicine 09/15/23 documented as of this encounter
--- OUTSIDE RECORDS SUMMARY | 2024-08-24 19:09 | XMS_ITS | Clinical Summary ---
Author Organization [facility] Address [address] [place] [address] Care Team Providers Care Burr Grinder Name Role Phone Vida Villa EDITOR PUBLICATIONS - FINISH MIXER Primary Care Pro vider Unavailable Allergies Active Allergy Reactions Criticality Noted Date [...] Sent to Orville Mahmood M.D. Referred to [facility] Pain Management: Appt on 01-18-14 at 3:45. [...] EDT Anesthesia Event [facility] [address] [place] [address] Efrem Velasquez, EDITOR PUBLICATIONS - CAUL FAT PULLER 06/22/2024 8:38 AM EDT - 06/22/2024 9:14 AM EDT Surgery [facility] [address] [place] [address] Gordon Zaragoza MD COLONOSCOPY 06/22/2024 8:03 AM EDT - 06/22/2024 10:41 AM EDT Hospital Encounter [facility] [address] [place] [address] Gordon Zaragoza MD Discharge Disposition: Home or Self Care 06/22/2024 Travel from Last 3 Months Immunizations Immunization [...] Vaccine (2023-2 5 season) 2023 Flu vaccine (#1) 09/15/2024 03/11/2018 HPV vaccine Aged Out No longer [...] Procedure Name Priority Date/Time Associated Diagnosis Comments IL COLON CA SCRN NOT HI RSK IND 06/22/2024 9:13 AM EDT Rectal bleeding HCG, SERUM, QUALITATIVE Routine 06/22/2024 8:30 AM EDT TELECOMMUNICATIONS LINE INSTALLER CYTOLOGY Routine 01/01/2015 2:26 PM EST HEMOGLOBIN A1C Routine 01/16/2013 2:08 PM EST from Last 3 Months or Most Recently Relevant to Health Maintenance Results * HCG Qualitative, Serum (06/22/2024 8:30 AM EDT) Preg, Serum NEGATIVE NEGATIVE 06/22/2024 8:30 AM EDT [facility] [employer] [facility] Comment: Specimens with hCG levels near the threshold of the test (25 mIU/mL) may give a negative or indeterminate result. In such cases, another test should be performed with a new specimen in 48-72 hours. If early is suspected clinically in this setting, correlation with quantitative serum b-hCG level is suggested. The V[employer] Net has confirmed the use of plasma for this test. This has not been cleared or approved by the U.S. Food and Drug Administration. The FDA has determined that such clearance is not necessary. Blood BLOOD SPECIMEN / Unknown 06/22/2024 8:30 AM EDT 06/22/2024 8:51 AM EDT us Gordon Zaragoza MD CHEMISTRY ORDERABLES Final R esult [facility] [address] [place] [address], [facility] [phone] * TELECOMMUNICATIONS LINE INSTALLER Cytology (01/01/2015 2:26 PM EST) Cytology Report (NOTE) [id number] [facility] ANATOMIC PATHOLOGY [address] [place] [address] GYNECOLOGIC CYTOLOGY REPORT Patient Name: ALESHA HALL MR#: [id number] Specimen #[id number] Source: 1: CERVICAL MATERIAL, (THIN PREP VIAL) Clinical History Z01.419 Routine conditioner tender exam without abnormal findings Z12.4 Encounter for screening for malignant neoplasm of cervix High Risk HPV DNA testing is requested if the diagnosis is ASC-US Date of prior pap: 12/07/2013 INTERPRETATION CERVICAL MATERIAL, (THIN PREP VIAL): Specimen Adequacy: Satisfactory for evaluation. - Endocervical/trans formation zone component present. Descriptive Diagnosis: Negative for intraepithelial lesion or malignancy. Staffing Director: CHRISTINA Haider(ASCP) Electronically Signed Out miladys/01/17/2015 01/17/2015 12:00 AM EST [facility] 01/01/2015 2:26 PM EST 01/03/2015 2:26 PM EST us Adonay Gordillo MD PATHOLOGY/CYTOLOGY ORDERABLES Final Result Performing Organization Address City/[facility]/ZIP Co de Phone Number [facility] [address] [phone] * Hemoglobin A1c (01/16/2013 2:08 PM EST) Hemoglobin A1C 5.2 4.0 - 6.0 % 01/16/2013 8:45 PM EST [facility] Estimated Avg Glucose 103 mg/dL 01/16/2013 8:45 PM EST [facility] Comment: The ADA and AACC recommend providing the estimated average glucose result to permit better patient understanding of their HBA1c result. Performed at [address] [place] [address] 01/16/2013 2:08 PM EST 01/16/2013 6:18 PM EST us Adonay Gordillo MD CHEMISTRY ORDERABLES Final Re sult Performing Organization Address [facility] Co de Phone Number [facility] [address] [place] [id number] [phone] [facility] from Last 3 Months or Most Recently Relevant to Health Maintenance Additional Health Concerns Infection Onset Date Last Indicated MRSA Comment:MRSA respiratory culture on 12/29/2017. endocarditis at [facility] in [place] approximately 6 months ago. 12/29/2017 12/27/2017 Insurance [facility] MEDICAID Advance Directives Documents on File Type Date Recorded Patient End Touching Machine Operator Expl anation ACP-Advance Directive 01/05/2018 12:59 PM [...] 2:38 AM 04/30/2016 10:54 PM Care Teams Burr Grinder Relationship Specialty Start Date End Date Vida Villa APRN - NP PCP - General Nurse Practitioner 05/11/24
== END 2024-08-24 19:07 | disposition home or self-care (01) ==
LOC: LAB 19:06
PROVIDERS: PCP Family Medicine; Visit Provider Physician Assistant
DX: Z01.419 Encounter for gynecological examination (general) (routine) without abnormal findings (principal)
CPT/HCPCS: 88175

== ENCOUNTER 2024-08-31 14:13 | Outpatient (OUT) | payer MEDICAID, SELFPAY ==
--- OUTSIDE RECORDS SUMMARY | 2013-10-10 14:00 | XMS_ITS | Encounter Summary ---
Author Organization [facility] Address [address], [address] [place] [address] Care Team Providers Care Md Allergy Immunology Name Role Phone Unavailable Primary Care Provider Unavailabl e Encounter Details Date Type Department Care Team (Late st Contact Info) Description 10/10/2013 2:00 PM EDT Hospital Encounter [facility] Ultrasound [address] [place] [phone] Adonay Gordillo MD [address] [place] [phone] Social History Tobacco Use Types Packs/Day Years [...] Comment:MRSA respiratory culture on 12/29/2017. endocarditis at [facility] in [place] approximately 6 months ago. 12/29/2017 12/27/2017 documented as of this encounter
--- OUTSIDE RECORDS SUMMARY | 2014-10-12 08:00 | XMS_ITS | Encounter Summary ---
Author Organization [facility] Address [address], [address] [place] [address] Care Team Providers Care Pressure Testing Technician Name Role Phone Unavailable Primary Care Provider Unavailabl e Encounter Details Date Type Department Care Team (Late st Contact Info) Description 10/12/2014 8:00 AM EDT Hospital Encounter [facility] Department [address] [phone] Adonay Gordillo MD [address] [facility] [address] [place] [phone] Social History Tobacco Use Types Packs/Day Years [...] culture on 12/29/2017. endocarditis at [facility] in [place] approximately 6 months ago. 12/29/2017 12/27/2017 documented as of this encounter
--- OUTSIDE RECORDS SUMMARY | 2015-02-11 16:00 | XMS_ITS | Encounter Summary ---
Author Organization [facility] Address [address], [address] [place] [address] Care Team Providers Care Processor Solid Propellant Name Role Phone Unavailable Primary Care Provider Unavailabl e Encounter Details Date Type Department Care Team (Late st Contact Info) Description 02/11/2015 3:00 PM [facility] Hospital Encounter MTH PRE ADMIT [address] [place] [address] Adonay Gordillo MD [address] [place] [phone] Social History Tobacco Use Types Packs/Day Years [...] Comment:MRSA respiratory culture on 12/29/2017. endocarditis at [facility] in [place] approximately 6 months ago. 12/29/2017 12/27/2017 documented as of this encounter
--- OUTSIDE RECORDS SUMMARY | 2024-08-17 14:45 | XMS_ITS | Encounter Summary ---
Author Organization [facility] Address [address] [place] [address] Care Team Providers Care Senior Catering Sales Manager Name Role Phone Navarro Haider MD Primary Care Provider [phone] Vida Villa TANK HOOP BENDER Unavailable [phone] Reason for Referral * Imaging (Routine) - Authorized Specialty Diagnoses / Procedures Referred By Contac t Referred To Contact Cardiology Diagnoses Primary hypertension History of bacterial endocarditis Procedures Echocardiogram 2D complete Navarro Haider MD [address] [place] [address] Phone: tel: fax: [facility] [address] [place] [address] Phone: tel: fax: Referral ID Status Reason Start Date Expiration Date Visits Requested Visits Authorized [id number] Authorized Perform Procedure 08/17/2024 02/13/2025 1 1 Reason for Visit * Reason Comments Follow-up 1 m Rash On left arm Encounter Details Date Type Department Care Team (Late Contact Info) Description 08/17/2024 2:45 PM EDT Office Visit [facility] [address] [place] [address] Navarro Haider MD [address] [place] [address] Primary hypertension (Primary Dx); History of bacterial endocarditis; Anemia, unspecified type; Class 3 severe obesity due to excess calories with serious comorbidity and body mass index (BMI) of 45.0 to 49.9 in adult ([facility]) Social History Tobacco Use Types Packs/Day Years [...] Sign Reading Time Taken Comments Blood Pressure 130/58 08/17/2024 2:59 PM EDT Pulse 82 08/17/2024 2:59 PM EDT Temperature 36.2 C (97.1 F) 08/17/2024 2:59 PM EDT Respiratory Rate 20 08/17/2024 2:59 PM EDT Oxygen Saturation 98% 08/17/2024 2:59 PM EDT Inhaled Oxygen Concentration - - Weight 144 kg (317 lb) 08/17/2024 2:59 PM EDT Height 172.7 cm (5' 8 ) 08/17/2024 2:59 PM EDT Body Mass Index 48.2 08/17/2024 2:59 PM EDT documented in this encounter Progress Notes * Navarro Haider MD - 08/17/2024 3:25 PM EDTAssociated Problem(s): Primary hypertension BP controlled and monitor PRN. * Navarro Haider MD - 08/17/2024 3:25 PM EDTAssociated Problem(s): History of bacterial endocarditis Repeat echo. * Navarro Haider MD - 08/17/2024 3:25 PM EDTAssociated Problem(s): Class 3 severe obesity due to excess calories with serious comorbidity and body mass index (BMI) of 45.0 to 49.9 in adult ([facility]) Patient overweight and difficult time losing weight. [...] reviewed. Continue medications as prescribed. Refer to lockstitch front maker. * Navarro Haider MD - 08/17/2024 3:25 PM EDTAssociated Problem(s): Anemia Repeat labs. * Navarro Haider MD - 08/17/2024 2:45 PM EDT Images from the original note were not included. Subjective Patient ID: Alesha Kenney is a 39 y.o. female who presents for Follow-up (1 m) and Rash (On left arm). Follow up HTN and weight. Checking BP PRN and typically controlled. BP normal today. Taking medication daily and tolerating without side effects. Took adipex for 1 month but had to stop off and on due to possible reaction. Developed rash and on steroids. Resumed and tolerated. Weight unchanged. Notice not as hungry and not eat as much with medication. Wants to try again. History of anemia and requests labs. Prior endocarditis and years since last echo. Review of Systems Respiratory: Negative for cough, [...] Assessment/Plan Problem List Items Addressed This Visit Class 3 severe obesity due to excess calories with serious comorbidity and body mass index (BMI) of45.0 to 49.9 in adult ([facility]) Patient overweight and difficult time losing weight. [...] reviewed. Continue medications as prescribed. Refer to lockstitch front maker. Relevant Medications phentermine (Adipex-P) 37.5 MG tablet Other Relevant Orders Basic metabolic panel Hemoglobin A1c Anemia Repeat labs. Relevant Orders CBC and differential Primary hypertension - Primary BP controlled and monitor PRN. Relevant Orders Echocardiogram 2D complete History of bacterial endocarditis Repeat echo. Relevant Orders Echocardiogram 2D complete documented in this encounter Plan of Treatment Upcoming Encounters Date Type Department Care Team (Late st Contact Info) Description 09/19/2024 2:00 PM EDT Office Visit [facility] [address] [place] [address] Navarro Haider MD [address] [place] [address] 08/30/2025 3:00 PM EDT Office Visit [facility] [address] [place] [address] Nadira Hudson PA [address] [place] [address] Scheduled Orders Name Type Priority Associated Diagnoses Orde r Schedule Echocardiogram 2D complete Echocardiography Routine Primary hypertension History of bacterial endocarditis Expected: 08/17/2024 (Approximate), Expires: 08/17/2026 CBC and differential Lab Routine Anemia, unspecified type Expected: 08/17/2024 (Approximate), Expires: 08/17/2025 Basic metabolic panel Lab Routine Class 3 severe obesity due to excess calories with serious comorbidity and body mass index (BMI) of 45.0 to 49.9 in adult ([facility]) Expected: 08/17/2024 (Approximate), Expires: 08/17/2025 Hemoglobin A1c Lab Routine Class 3 severe obesity due to excess calories with serious comorbidity and body mass index (BMI) of 45.0 to 49.9 in adult ([facility]) Expected: 08/17/2024 (Approximate), Expires: 08/17/2025 documented as of this encounter Visit Diagnoses Diagnosis Primary hypertension- Primary Unspecified essential hypertension History of bacterial endocarditis Anemia, unspecified type Class 3 severe obesity due to excess calories with serious comorbidity and body mass index (BMI) of 45.0 to 49.9 in adult ([facility]) documented in this encounter Care Teams Senior Catering Sales Manager Relationship Specialty Start Date End Date Navarro Haider MD [address] [place] [phone] PCP - General Family Medicine 09/15/23 Vida Villa NP [address] [place] [address] Nurse Practitioner Family Medicine 09/15/23 documented as of this encounter
--- OUTSIDE RECORDS SUMMARY | 2024-08-24 15:00 | XMS_ITS | Encounter Summary ---
Author Organization [facility] Address [address] [facility] [place] [address] Care Team Providers Care Wire Spring Relay Adjuster Name Role Phone Navarro Haider MD Primary Care Provider [phone] Vida Villa PRODUCTION DIRECTOR Unavailable [phone] Reason for Visit * Reason Comments Well Women Visit Encounter Details Date Type Department Care Team (Late st Contact Info) Description 08/24/2024 3:00 PM EDT Office Visit [facility] [address] [facility] [place] [address] Nadira Hudson PA [address] [facility] [address] [place], [facility] Well woman exam with routine gynecological exam [...] index (BMI) of45.0 to 49.9 in adult ([facility]) 03/03/2023 Opioid use disorder in remission 03/03/2023 Current smoker 03/03/2023 History of heroin abuse ([facility]) 12/27/2017 Hx of methicillin resistant Staphylococcus aureus infection 12/26/2017 Hepatitis C antibody test positive 09/22/2022 Wellness examination 04/05/2023 Anemia 04/19/2023 Primary hypertension 03/09/2024 Urticaria 07/19/2024 Allergic reaction due to antibacterial drug 07/19/2024 History of bacterial endocarditis 08/17/2024 Resolved Ambulatory Problems Diagnosis Date Noted URI, acute 03/03/2023 Bacterial endocarditis ([facility]) 12/26/2017 Chronic septic pulmonary embolism without acute [...] Diagnosis Date Allergies Endocarditis Endometriosis Gestational diabetes ([facility]) Hepatitis C History of endocarditis in adulthood Obesity, morbid ([facility]) Opioid abuse ([facility]) Substance abuse ([facility]) Tobacco user HISTORY PAST MEDICAL HISTORY SOCIAL HISTORY Past Medical History: Diagnosis Date Allergies Endocarditis Endometriosis Gestational diabetes ([facility]) Hepatitis C History of endocarditis in adulthood Obesity, morbid ([facility]) Opioid abuse ([facility]) Substance abuse ([facility]) Tobacco user Social History Tobacco Use Smoking [...] nursing note reviewed. Exam conducted with a vacation sales advisor present. Vitals: Estimated body mass index is 47.44 kg/m² as calculated from the following: Height as [...] [facility] [address] [place] [address] Navarro Haider MD [address] [place] [address] 08/30/2025 3:00 PM EDT Office Visit [facility] OB [address] [facility] [place] [address] Nadira Hudson PA [address] [facility] [place] [address] Scheduled Orders Name Type Priority Associated [...] examination documented in this encounter Care Teams Wire Spring Relay Adjuster Relationship Specialty Start Date End Date Navarro Haider MD [address] [place] [address] PCP - General Family Medicine 09/15/23 Vida Villa NP [address] [place] [address] Nurse Practitioner Family Medicine 09/15/23 documented as of this encounter
--- OUTSIDE RECORDS SUMMARY | 2024-08-31 14:16 | XMS_ITS | Clinical Summary ---
Author Organization [facility] Address [address] [place] [address] Care Team Providers Care Bpm Analyst Name Role Phone Navarro Haider MD Primary Care Provider Vida Villa AUTO APPRENTICE MECHANIC Unavailable [phone] Allergies Active Allergy Reactions Criticality Noted Date [...] (BMI) of 45.0 to 49.9 in adult ([facility]) Take 1 tablet (37.5 mg) by mouth in the morning. Take before meals. 30 tablet 08/18/19 25 025 Active phentermine (Adipex-P) 37.5 MG tabletIndications :Class 3 severe obesity due to excess calories with serious comorbidity and body mass index (BMI) of 45.0 to 49.9 in adult ([facility]),Encount er for weight management Take 1 tablet [...] (BMI) of 45.0 to 49.9 in adult ([facility]) Take 1 tablet (37.5 mg) [...] prednisone and use atarax PRN. Follow with glass block bender. Allergic reaction due to antibacterial drug 05/2024 Assessment & Plan (07/19/2024 1:44 PM EDT): Likely reaction to macrobid. Treat with high dose prednisone and use atarax PRN. Follow with glass block bender. Primary hypertension 03/09/2024 Assessment & Plan (08/17/2024 [...] day. Consider tracking your food intake on [employer] or [employer]It Water: Increase water intake; GOAL [...] reviewed. Continue medications as prescribed. Refer to digital media manager. Assessment & Plan (06/26/2024 2:28 PM EDT): [...] reviewed. Continue medications as prescribed. Refer to digital media manager. Assessment & Plan (11/23/2023 4:11 PM EDT): [...] Plan (11/23/2023 9:41 PM EDT): Follows with [employer]. Was seeing Hope Mccauleya. Currently takes Suboxone [...] day. Consider tracking your food intake on [employer] or LoseIt Water: Increase water intake; GOAL [...] call office if worsening symptoms. Bacterial endocarditis ([facility]) 12/26/2017 06/26/2024 Overview (04/05/2023): Hx of and suspected current Encounters Date Type Department Care Team Description 08/29/2024 Orders Only [facility] [address] [place] [address] Kavitha Vega MA 08/24/2024 3:00 PM EDT Office Visit [facility] [address] [place] [address] Nadira Hudson PA Well woman exam with routine gynecological exam 08/24/2024 Clinisync Result Encounter [facility] External Department Unsolicited Provider, Generic External Data 08/24/2024 Bamboo flowsheet [facility] [address] [place] [address] Nadira Hudson PA 08/17/2024 2:45 PM EDT Office Visit [facility] [address] [place] [address] Navarro Haider MD Primary hypertension (Primary Dx); History of bacterial endocarditis; Anemia, unspecified type; Class 3 severe obesity due to excess calories with serious comorbidity and body mass index (BMI) of 45.0 to 49.9 in adult ([facility]) 08/17/2024 Telephone [facility] [address] [place] [address] Navarro Haider MD 08/17/2024 Bamboo flowsheet [facility] [address] [place] [address] Navarro Haider MD 08/08/2024 Telephone [facility] [address] [place] [address] Navarro Haider MD antibiotic for abcess in mouth 07/27/2024 4:00 PM EDT Office Visit [facility] [address] [facility] [address] [place] [address] Rufino Cm DPM Verruca plantaris (Primary Dx); Foot pain, right 07/27/2024 Bamboo flowsheet [facility] [address] [facility] [address] [place] [address] Rufino Cm DPM 07/27/2024 Travel 07/25/2024 Telephone [facility] [address] [facility] [place] [address] Sharee Riggs LPN 07/19/2024 1:00 PM EDT Office Visit [facility] [address] [place] [address] Navarro Haider MD Allergic reaction due to antibacterial drug (Primary Dx); Urticaria 07/19/2024 Bamboo flowsheet [facility] [address] [place] [address] Navarro Haider MD 07/17/2024 Orders Only [facility] [address] [place] [address] Jd Alcazar PA 07/13/2024 2:40 PM EDT Office Visit [facility] [address] [place] [address] Rufino Cm, DARBYM Verruca plantaris (Primary Dx); Foot pain, right 07/13/2024 Travel 07/13/2024 Refill [facility] [address] [place] [address] Navarro Haider MD URI, acute 07/11/2024 Telephone [facility] [address] [place] [address] Navarro Haider MD uti 06/26/2024 1:30 PM EDT Office Visit [facility] [address] [place] [address] Navarro Haider MD Primary hypertension (Primary Dx); URI, acute; Class 3 severe obesity due to excess calories with serious comorbidity and body mass index (BMI) of 45.0 to 49.9 in adult ([facility]); Encounter for weight management; Opioid dependence, uncomplicated ([facility]) 06/26/2024 Telephone [facility] [address] [place] [address] Navarro Haider MD 06/26/2024 Bamboo flowsheet [facility] [address] [place] [address] Navarro Haider MD 06/19/2024 Refill [facility] [address] [place] [address] Navarro Haider MD Vitamin D deficiency 06/01/2024 4:30 PM EDT Office Visit [facility] [address] [place] [address] Rufino Cm DPClemencia Verruca plantaris (Primary Dx); Foot pain, right 06/01/2024 Bamboo flowsheet [facility] [address] [place] [address] Rufino Cm DPM 06/01/2024 Travel from Last [...] Visit [facility] [address] [place] [address] Navarro Haider MD [address] [place] [address] 08/30/2025 3:00 PM EDT Office Visit [facility] [address] [address] Nadira Hudson PA [address] [place] [address] Health Maintenance Due Date Last Done Comments Influenza Vaccine (#1) 2024 03/11/2018 Cervical Cancer Screening 08/24/2029 HPV/Cotest 08/24/2029 10/01/2022 Pap Smear 08/24/2029 08/24/2024, 08/25/2022, 12/16 Procedures Procedure Name Priority Date/Time Associated Diagnosis Comments IGP,APTIMA HPV,AGE GDLN Routine 08/24/2024 3:08 PM EDT PAP SMEAR Routine 08/24/2024 12:00 AM EDT XR CHEST 1 VIEW Routine 07/17/2024 1:46 PM EDT THINPREP PAP AND HPV MRNA E6/E7 W/RFL HPV 16,18/45 Routine 10/01/2022 3:44 PM EDT Well woman exam with routine gynecological exam from Last 3 Months or Most Recently Relevant to Health Maintenance Results * IGP,APTIMA HPV,AGE GDLN (08/24/2024 3:08 PM EDT) AGE GDLN ACOG TESTING Note . [facility] Comment: TESTS RESULT FLAG UNITS REF RANGE LAB Clinician Provided Cytology Information Source.............Cervix;Endocervix No. of containers..01 ThinPrep Vial Age Elenitao ACRJ Paula... FLAG LEGEND: L-Low Normal,H-High Normal,LL-Alert Low,HH-Alert High <-Panic Low,>-Panic High,A-Abnormal,AA-Critical Abnormal Performed at: 01 =[facility] [place] [address] Vicki Fleming MD, IGP, APTIMA HPV, RFX 16/18,45 Note . [facility] Comment: TESTS RESULT FLAG UNITS REF RANGE LAB DIAGNOSIS: 02 NEGATIVE FOR INTRAEPITHELIAL LESION OR MALIGNANCY. Specimen adequacy: 02 Satisfactory for evaluation. No endocervical component is identified. Performed by: 02 Steven Alfaro, Safety Person (ASCP) . 02 Note: Note 02 The Pap smear is a screening test designed to aid in the detection of premalignant and malignant conditions of the uterine cervix. It is not a diagnostic procedure and should not be used as the sole means of detecting cervical cancer. Both false-positive and false-negative reports do occur. Test Methodology: Note 02 This liquid based ThinPrep(R) pap test was screened with the use of an image guided system. HPV Genotype Reflex Note 02 Criteria not met, HPV Genotype not performed. FLAG LEGEND: L-Low Normal,H-High Normal,LL-Alert Low,HH-Alert High <-Panic Low,>-Panic High,A-Abnormal,AA-Critical Abnormal Performed at: [address] [phone] Vicki Fleming MD, HPV APTIMA Negative Negative [facility] Comment: This nucleic acid amplification test detects fourteen high- risk HPV types (16,18,31,33,35,39,45,51,52,56,58,59,66,68) without differentiation. Performed at: =[address] [id number] Animal Sitter: Vicki Fleming MD, Phone: [phone] Performed at: [address] [id number] Animal Sitter: Vicki Fleming MD, Phone: [phone] 08/24/2024 3:08 PM EDT 08/24/2024 8:41 PM EDT Narrative [facility] - 08/29/2024 12:08 PM EDT BRUSH-SPATULA CERVIX ENDOCERVIX Nadira BUSBY LAB BLOOD ORDERABLES Final Resul t Performing Organization Address [facility] de Phone Number [facility] * Pap Smear (08/24/2024 12:00 AM EDT) Swab Cervical swab / Unknown Nadira BUSBY LAB CYTOLOGY ORDERABLES Final Re sult Performing Organization Address [facility] de Phone Number EXTERNAL LAB * XR chest 1 view (07/17/2024 1:46 PM EDT) Anatomical Region Laterality Modality Chest Radiographic Estefania ging Jd BUSBY IMG XR PROCEDURES Final Result * THINPREP PAP AND HPV MRNA E6/E7 W/RFL HPV 16,18/45 (10/01/2022 3:44 PM EDT) Nadira BUSBY LAB BLOOD ORDERABLES Final Resul t EXTERNAL LAB from Last 3 Months or Most Recently Relevant to Health Maintenance Insurance [facility] MEDICAID [place] Care Teams Bpm Analyst Relationship Specialty Start Date End Date Navarro Haider MD [address] [place] [address] PCP - General Family Medicine 09/15/23 Vida Villa NP [address] [place] [address] Nurse Practitioner Family Medicine 09/15/23
--- OUTSIDE RECORDS SUMMARY | 2024-08-31 14:16 | XMS_ITS | Encounter Summary ---
Author Organization [facility] Address [address] [place] [address], [address] [place] [address] Care Team Providers Care Investment Manager Name Role Phone Vida Villa APRN - QUILL PICKING MACHINE OPERATOR Primary Care Pro vider Unavailable Reason for Visit * Reason Comments Other Encounter Details Date Type Department Care Team (Late st Contact Info) Description 03/16/2014 Refill Hillary DIRECTOR OF SPEECH PATHOLOGY [facility] [place] [address] [place] [address] Adonay Gordillo MD [address] [place] [address] [address] [place] [phone] Other Social History Tobacco Use Types Packs/Day [...] Comment:MRSA respiratory culture on 12/29/2017. endocarditis at [facility] approximately 6 months ago. 12/29/2017 12/27/2017 documented as of this encounter Care Teams Investment Manager Relationship Specialty Start Date End Date Vida Villa APRN - NP PCP - General Nurse Practitioner 05/11/24 documented as of this encounter
--- OUTSIDE RECORDS SUMMARY | 2024-08-31 14:16 | XMS_ITS | Encounter Summary ---
Author Organization [facility] Address [address] [place] [address], [address] [place] [address] Care Team Providers Care Designer/Writer Name Role Phone Vida Villa DIRECTOR OF CORPORATE REAL ESTATE - MATERIAL FLOW ENGINEER Primary Care Pro vider Unavailable Encounter Details Date Type Department Care Team (Late st Contact Info) Description 05/01/2016 FollowUp Telephone Encounter [facility] Car 2- Stepdown [address] [place] [address] Prem Kramer RN Social History Tobacco Use [...] culture on 12/29/2017. endocarditis at [facility] approximately 6 months ago. 12/29/2017 12/27/2017 documented as of this encounter Care Teams Designer/Writer Relationship Specialty Start Date End Date Vida Villa APRN - NP PCP - General Nurse Practitioner 05/11/24 documented as of this encounter
--- OUTSIDE RECORDS SUMMARY | 2024-08-31 14:16 | XMS_ITS | Encounter Summary ---
Author Organization [facility] Address [address] [facility] [place] [address] Care Team Providers Care Entry Level Business Analyst Name Role Phone Navarro Haider MD Primary Care Provider [phone] Vida Villa DIRECTOR SUMMER SESSIONS Unavailable [phone] Encounter Details Date Type Department Care Team (Late Contact Info) Description 08/24/2024 Bamboo flowsheet [facility] [address] [facility] [place] [address] Nadira Hudson PA [address] [facility] [address] [place], [facility] Social History Tobacco Use Types Packs/Day [...] 09/19/2024 2:00 PM EDT [facility] [address] [place] [address] Navarro Haider MD [address] [place] [address] 08/30/2025 3:00 PM EDT Office Visit [facility] [address] [facility] [place] [address] Nadira Hudson PA [address] [place] [address] documented as of this encounter Visit Diagnoses Not on filedocumented in this encounter Care Teams Entry Level Business Analyst Relationship Specialty Start Date End Date Navarro Haider MD [address] [place] [address] PCP - General Family Medicine 09/15/23 Vida Villa NP [address] [place] [address] Nurse Practitioner Family Medicine 09/15/23 documented as of this encounter
--- OUTSIDE RECORDS SUMMARY | 2024-08-31 14:16 | XMS_ITS | Encounter Summary ---
Author Organization [facility] Address [address] [place] [address], [address] [place] [address] Care Team Providers Care Furnace Reliner Name Role Phone Vida Villa APRN - WAREHOUSE REPRESENTATIVE Primary Care Pro vider Unavailable Reason for Visit * Reason Comments Medication Refill Encounter Details Date Type Department Care Team (Late st Contact Info) Description 01/13/2015 Refill [facility] [place] [address] [place] [address] Adonay Gordillo MD [address] [place] [address] [place] [address] Medication Refill Social History Tobacco Use [...] Comment:MRSA respiratory culture on 12/29/2017. endocarditis at [facility] approximately 6 months ago. 12/29/2017 12/27/2017 documented as of this encounter Care Teams Furnace Reliner Relationship Specialty Start Date End Date Vida Villa APRN - NP PCP - General Nurse Practitioner 05/11/24 documented as of this encounter
--- OUTSIDE RECORDS SUMMARY | 2024-08-31 14:16 | XMS_ITS | Encounter Summary ---
Author Organization [facility] Address [address] [place] [address] Care Team Providers Care Mercantile Reporter Name Role Phone Navarro Haider MD Primary Care Provider Vida Villa NP Unavailable [phone] Reason for Referral * Consultation (Routine) - Authorized Specialty Diagnoses / Procedures Referred By Carmen pham Referred To Contact Gastroenterology Diagnoses Positive occult stool blood test Procedures AR OFFICE/OUTPATIENT NEW HIGH MDM 60 MINUTES Vida Villa NP [address] [place] [address] fax: Angeles Sampson MD [address] [place] [address] Phone: tel: fax: Referral ID Status Reason Start Date Expiration Date Visits Requested Visits Authorized [id number] Authorized Specialty Services Required 03/23/2024 09/19/20[address] Angeles Sampson [place], [place] [phone] Encounter Details Date Type Department Care Team (Late st Contact Info) Description 03/23/2024 Orders Only [facility] [address] [place] [address] Vida Villa NP Positive occult stool blood [...] Visit [facility] [address] [place] [address] Navarro Haider MD [address] [place] [address] 08/30/2025 3:00 PM EDT Office Visit [facility] [address] [facility] [place] [place] [address] Nadira Hudson PA [address] [facility] [address] [place], [place] [phone] Scheduled Referrals Name Type Priority Associated Diagnoses Order Schedule Ambulatory referral to Gastroenterology Outpatient Referral Routine Positive occult stool blood test Expected: 03/23/2024 (Approximate), Expires: 09/20/2024 documented as of this encounter Visit Diagnoses Diagnosis Positive occult stool blood test- Primary Nonspecific abnormal finding in stool contents documented in this encounter Care Teams Mercantile Reporter Relationship Specialty Start Date End Date Navarro Haider MD [address] [place] [address] PCP - General Family Medicine 09/15/23 Vida Villa NP [address] [place] [address] Nurse Practitioner Family Medicine 09/15/23 documented as of this encounter
--- OUTSIDE RECORDS SUMMARY | 2024-08-31 14:16 | XMS_ITS | Encounter Summary ---
Author Organization [facility] Address [address] [place] [address] Care Team Providers Care Queen'S Counsel Name Role Phone Shaikh LINDA Garland Primary Care Provider [phone] Navarro Haider MD Primary Care Provider [phone] Vida Villa RIGGING FOREMAN Unavailable [phone] Encounter Details Date Type Department Care Team (Late Contact Info) Description 09/13/2023 Orders Only [facility] [address] [place] [address] Shaikh Garland MD [address] [place] [address] Social History Tobacco Use Types Packs/Day Years [...] 09/19/2024 2:00 PM EDT [facility] [address] [place] [address] Navarro Haider MD [address] [place] [address] 08/30/2025 3:00 PM EDT Office Visit [facility] BCP OB [address] [facility] [place] [address] Nadira Hudson PA [address] [facility] [place] [address] documented as of this encounter Visit Diagnoses Not on filedocumented in this encounter Care Teams Queen'S Counsel Relationship Specialty Start Date End Date Shaikh Garland MD [address] [place] [address] PCP - General Internal Medicine 04/19/23 09/14/23 Navarro Haider MD [address] [place] [address] PCP - General Family Medicine 09/15/23 Vida Villa NP [address] [place] [address] Nurse Practitioner Family Medicine 09/15/23 documented as of this encounter
--- OUTSIDE RECORDS SUMMARY | 2024-08-31 14:16 | XMS_ITS | Encounter Summary ---
Author Organization [facility] Address [address] [place] [address], [address] [place] [address] Care Team Providers Care Bulk Plant Agent Name Role Phone Vida Villa APRN - MIDDLE STITCHER Primary Care Pro vider Unavailable Reason for Visit * Reason Comments Medication Refill Encounter Details Date Type Department Care Team (Late st Contact Info) Description 12/21/2014 Refill [facility] [place] [address] [place] [address] Adonay Gordillo MD [address] [place] [address] [place] [address] Medication Refill Social History Tobacco [...] Comment:MRSA respiratory culture on 12/29/2017. endocarditis at [facility] approximately 6 months ago. 12/29/2017 12/27/2017 documented as of this encounter Care Teams Bulk Plant Agent Relationship Specialty Start Date End Date Vida Villa APRN - NP PCP - General Nurse Practitioner 05/11/24 documented as of this encounter
--- OUTSIDE RECORDS SUMMARY | 2024-08-31 14:16 | XMS_ITS | Encounter Summary ---
Author Organization [facility] Address [address] [place] [address] Care Team Providers Care Horologist Apprentice Name Role Phone Navarro Haider MD Primary Care Provider [phone] Vida Villa MARKETING SEGMENT MANAGER Unavailable [phone] Encounter Details Date Type Department Care Team (Late Contact Info) Description 07/17/2024 Orders Only [facility] [address] [place] [address] Jd Alcazar PA [address] [place] [address] Social History Tobacco Use Types [...] 09/19/2024 2:00 PM EDT Office Visit [facility] [address] [place] [address] Navarro Haider MD [address] [place] [address] 08/30/2025 3:00 PM EDT Office Visit [facility] OB [address] [facility] [place] [address] Nadira Hudson PA [address] [facility] [place] [address] documented as of this encounter Procedures Procedure [...] on filedocumented in this encounter Care Teams Horologist Apprentice Relationship Specialty Start Date End Date Navarro Haider MD [address] [place] [address] PCP - General Family Medicine 09/15/23 Vida Villa NP [address] [place] [address] Nurse Practitioner Family Medicine 09/15/23 documented as of this encounter
--- OUTSIDE RECORDS SUMMARY | 2024-08-31 14:16 | XMS_ITS | Encounter Summary ---
Author Organization [facility] Address [address] [place] [address] Care Team Providers Care Yardage Control Operator Name Role Phone Navarro Haider MD Primary Care Provider [phone] Vida Villa RESEARCH TECH Unavailable [phone] Encounter Details Date Type Department Care Team (Late Contact Info) Description 08/17/2024 Bamboo flowsheet [facility] [address] [place] [address] Navarro Haider MD [address] [place] [address] Social History Tobacco Use Types [...] Upcoming Encounters Date Type Department Care Team ([facility] Contact Info) Description 09/19/2024 2:00 PM EDT Office Visit [facility] [address] [place] [address] Navarro Haider MD [address] [place] [address] 08/30/2025 3:00 PM EDT Office Visit [facility] OB [address] [facility] [address] Nadira Hudson PA [address] [facility] [address] [place], [place] [address] documented as of this encounter Visit Diagnoses Not on filedocumented in this encounter Care Teams Yardage Control Operator Relationship Specialty Start Date End Date Navarro Haider MD [address] [place] [address] PCP - General Family Medicine 09/15/23 Vida Villa NP [address] [place] [address] Nurse Practitioner Family Medicine 09/15/23 documented as of this encounter
--- OUTSIDE RECORDS SUMMARY | 2024-08-31 14:17 | XMS_ITS | Encounter Summary ---
Author Organization [facility] Bird s tem Address [id number] [address] [place] [address] Care Team Providers Care Development Geologist Name Role Phone Tevin Bush MD Primary Care Provider [phone] Encounter Details Date Type Department Care Team (Late st Contact Info) Description 09/02/2022 Orders Only [facility] at [facility] [address] [place] [address] Ref Prov, [place] [address] Social History Tobacco Use Types Packs/Day Years [...] on filedocumented in this encounter Care Teams Development Geologist Relationship Specialty Start Date End Date Tevin Bush MD PCP - General 07/19/17 documented as of this encounter
--- OUTSIDE RECORDS SUMMARY | 2024-08-31 14:17 | XMS_ITS | Encounter Summary ---
Author Organization [facility] Address [address] [place] [address] Care Team Providers Care Merchandising Assistant Name Role Phone Shaikh LINDA Garland Primary Care Provider [phone] Shaikh LINDA Garland Primary Care Provider [phone] Navarro Haider MD Primary Care Provider [phone] Vida Villa POLICY AND PLANNING MANAGER Unavailable [phone] Encounter Details Date Type Department Care Team (Late st Contact Info) Description 12/18/2022 Clinisync Result Encounter [facility] External Department Unsolicited Jessica Yanez DO [address] [place] [address] [place] [address] Social History Tobacco Use Types [...] 09/19/2024 2:00 PM EDT [facility] [address] [place] [address] Navarro Haider MD [address] [place] [address] 08/30/2025 3:00 PM EDT Office Visit [facility] OB [address] [facility] [place] [address] Nadira Hudson PA [address] [facility] [address] [place], [facility] documented as of this encounter Procedures Procedure Name Priority Date/Time Associated Diagnosis Comments US OB BPP W NON-STRESS 12/18/2022 5:55 PM EDT documented in this encounter Results * US OB BPP W NON-STRESS (12/18/2022 5:55 PM EDT) Anatomical Region Laterality Modality Other 12/18/2022 5:55 PM EDT Narrative 12/18/2022 5:55 [place] [address] Ultrasound Report Signed Patient: ALESHA HALL MR#: [id number] : 1985 Acct:[id number] Age/Sex: 37 / F ADM Date: 12/17/22 Loc: US Attending Dr: Jessica Yanez D.O. Ordering Physician: Jessica Yanez D.O. Date of Service: 12/17/22 Procedure(s): US OB BPP w non-stress Accession Number(s): [id number] cc: Shaikh Irasema Garland; Jessica Yanez D.O. The [address] [address] Patient Name: ALESHA HALL MRN: [id number] date: 1985 Sex: F Assigned Patient Location: [facility] Current Patient Location: Accession/Order Number: [id number] Exam Date: 12/17/2022 15:00 Report Date: 12/18/2022 [...] M.D. Signed By: 12/18/221756 DD/ 54 TD/TT: Cabinet Worker: Procedure Note Radiology, Radiologist, - 12/18/2022 [place] [address] Ultrasound Report Signed Patient: ALESHA HALL AMR#: [id number] : 1985Acct:[id number] Age/Sex: 37 / FADM Date: 12/17/22 Loc: US Attending Dr: Jessica Yanez D.O. Ordering Physician: Jessica Yanez D.O. Date of Service: 12/17/22 Procedure(s): US OB BPP w non-stress Accession Number(s): [id number] cc: Shaikh Irasema Garland; Jessica Yanez D.O. The [place] [address] Patient Name: ALESHA HALL MRN: [id number] date: 1985 Sex: F Assigned Patient Location: [facility] Current Patient Location: Accession/Order Number: [id number] Exam Date: 12/17/2022 15:00 Report Date: 12/18/2022 [...] Dykes M.D. Signed By:12/18/221756 DD/ 54 TD/TT: Cabinet Worker: us Jessica Beau DO [facility] Final Result documented in this encounter Visit Diagnoses Not on filedocumented in this encounter Care Teams Merchandising Assistant Relationship Specialty Start Date End Date Shaikh Garland MD PCP - General Internal Medicine 07/28/22 04/18/23 Shaikh Garland MD [address] [place] [address] PCP - General Internal Medicine 04/19/23 09/14/23 Navarro Haider MD [address] [place] [address] PCP - General Family Medicine 09/15/23 Vida Villa NP [address] [place] [address] Nurse Practitioner Family Medicine 09/15/23 documented as of this encounter
--- OUTSIDE RECORDS SUMMARY | 2024-08-31 14:17 | XMS_ITS | Encounter Summary ---
Author Organization [facility] Address [address] [facility] [place] [address] Care Team Providers Care Processing Rep Name Role Phone Navarro Haider MD Primary Care Provider [phone] Vida Villa RN CLINICAL DOCUMENTATION Unavailable [phone] Encounter Details Date Type Department Care Team (Late Contact Info) Description 08/29/2024 Orders Only [facility] [address] [facility] [place] [address] Kavitha Vega MA [address] [facility] [place] [address] Social History Tobacco Use Types Packs/Day Years [...] Visit [facility] [address] [place] [address] Navarro Haider MD [address] [place] [address] 08/30/2025 3:00 PM EDT Office Visit [facility] [address] [facility] [place] [address] Nadira Hudson PA [address] [facility] [place] [address] documented as of this encounter Procedures Procedure Name Priority Date/Time Associated Diagnosis Comments PAP SMEAR Routine 08/24/2024 12:00 AM EDT documented in this encounter Results * Pap Smear (08/24/2024 12:00 AM EDT) Swab Cervical swab / Unknown Nadira [facility] CYTOLOGY ORDERABLES Final Re sult EXTERNAL LAB documented in this encounter Visit Diagnoses Not on filedocumented in this encounter Care Teams Processing Rep Relationship Specialty Start Date End Date Navarro Haider MD [address] [place] [address] PCP - General Family Medicine 09/15/23 Vida Villa NP [address] [place] [address] Nurse Practitioner Family Medicine 09/15/23 documented as of this encounter
--- OUTSIDE RECORDS SUMMARY | 2024-08-31 14:17 | XMS_ITS | Encounter Summary ---
Author Organization [facility] Address [address] [facility] [place] [address] Care Team Providers Care Wardrobe Technician Name Role Phone Navarro Haider MD Primary Care Provider [phone] Vida Villa MACHINE HAMPER MAKER Unavailable [phone] Encounter Details Date Type Department Care Team (Late st Contact Info) Description 08/24/2024 Clinisync Result Encounter [facility] External Department Unsolicited Provider, Generic External Data Social History Tobacco Use Types Packs/Day Years [...] 2:00 PM EDT Office Visit [facility] [address] [place] [address] Navarro Haider MD [address] [place] [address] 08/30/2025 3:00 PM EDT Office Visit [facility] [address] [place] [address] Nadira Hudson PA [address] [facility] [place] [address] documented as of this encounter Procedures Procedure Name Priority Date/Time Associated Diagnosis Comments IGP,APTIMA HPV,AGE GDLN Routine 08/24/2024 3:08 PM EDT documented in this encounter Results * IGP,APTIMA HPV,AGE GDLN (08/24/2024 3:08 PM EDT) AGE GDLN ACOG TESTING Note . [facility] Comment: TESTS RESULT FLAG UNITS REF RANGE LAB Clinician Provided Cytology Information Source.............Cervix;Endocervix No. of containers..01 ThinPrep Vial Age Algo ACOG Paula... 30-65 01 FLAG LEGEND: L-Low Normal,H-High Normal,LL-Alert Low,HH-Alert High <-Panic Low,>-Panic High,A-Abnormal,AA-Critical Abnormal Performed at: 01 =[facility] [address] [address] Vicki Fleming MD, IGP, APTIMA HPV, RFX 16/18,45 Note . [facility] Comment: TESTS RESULT FLAG UNITS REF RANGE LAB DIAGNOSIS: 02 NEGATIVE FOR INTRAEPITHELIAL LESION OR MALIGNANCY. Specimen adequacy: 02 Satisfactory for evaluation. No endocervical component is identified. Performed by: 02 Steven Alfaro Media Librarian ([facility]) . 02 Note: Note 02 The Pap [...] <-Panic Low,>-Panic High,A-Abnormal,AA-Critical Abnormal Performed at: [address] [place] [address] Vicki Fleming MD, HPV APTIMA Negative Negative [facility] Comment: This nucleic acid amplification test detects fourteen high- risk HPV types (16,18,31,33,35,39,45,51,52,56,58,59,66,68) without differentiation. Performed at: = - [facility] [id number] Fish Trapper: Vicki Fleming MD, Phone: [phone] Performed at: [place] [address] [address] [place] [id number] Fish Trapper: Vicki Fleming MD, Phone: [phone] 08/24/2024 3:08 PM EDT 08/24/2024 8:41 PM EDT Narrative [facility] - 08/29/2024 12:08 PM EDT BRUSH-SPATULA CERVIX ENDOCERVIX us Nadira [facility] BLOOD ORDERABLES Final Resul t [facility] documented in this encounter Visit Diagnoses Not on filedocumented in this encounter Care Teams Wardrobe Technician Relationship Specialty Start Date End Date Navarro Haider MD [address] [place] [address] PCP - General Family Medicine 09/15/23 Vida Villa NP [address] [place] [address] Nurse Practitioner Family Medicine 09/15/23 documented as of this encounter
--- OUTSIDE RECORDS SUMMARY | 2024-08-31 14:17 | XMS_ITS | Clinical Summary ---
Author Organization [facility] Address [address] [facility], [address] [place] [address] Care Team Providers Care Emergency Dept Tech Name Role Phone Vida Villa PHOTOGRAPHIC ENGINEER - AUTOMATIC BUFFING WHEEL FORMER Primary Care Pro vider Unavailable Allergies Active [...] Sent to Orville Mahmood M.D. Referred to [facility]: Appt on 01-18-14 at 3:45. [...] EDT Anesthesia Event [facility] [address] [place] [address] Efrem Velasquez, PHOTOGRAPHIC ENGINEER - COMPLIANCE TECHNICIAN 06/22/2024 8:38 AM EDT - 06/22/2024 9:14 AM EDT Surgery [facility] [address] [place] [address] Gordon Zaragoza MD COLONOSCOPY 06/22/2024 8:03 AM EDT - 06/22/2024 10:41 AM EDT Hospital Encounter [facility] [address] [place] [address] Gordon Zaragoza MD Discharge Disposition: Home or [...] Procedure Name Priority Date/Time Associated Diagnosis Comments GA COLON CA SCRN NOT HI RSK IND 06/22/2024 9:13 AM EDT Rectal bleeding HCG, SERUM, QUALITATIVE Routine 06/22/2024 8:30 AM EDT VENEER JOINTER HELPER CYTOLOGY Routine 01/01/2015 2:26 PM EST HEMOGLOBIN A1C Routine 01/16/2013 2:08 PM EST from Last 3 Months or Most Recently Relevant to Health Maintenance Results * HCG Qualitative, Serum (06/22/2024 8:30 AM EDT) Pathologist [facility] Preg, Serum NEGATIVE NEGATIVE 06/22/2024 8:30 AM EDT [facility] Comment: Specimens with hCG levels near the threshold of the test (25 mIU/mL) may give a negative or indeterminate result. In such cases, another test should be performed with a new specimen in 48-72 hours. If early is suspected clinically in this setting, correlation with quantitative serum b-hCG level is suggested. [facility] has confirmed the use of plasma for this test. This has not been cleared or approved by the U.S. Food and Drug Administration. The FDA has determined that such clearance is not necessary. Blood BLOOD SPECIMEN / Unknown 06/22/2024 8:30 AM EDT 06/22/2024 8:51 AM EDT us Gordon Zaragoza MD CHEMISTRY ORDERABLES Final R esult [facility] [address] [place] [address], [facility] [phone] * VENEER JOINTER HELPER Cytology (01/01/2015 2:26 PM EST) Cytology Report (NOTE) [id number] [facility] ANATOMIC PATHOLOGY [address] [place] [address] GYNECOLOGIC CYTOLOGY REPORT Patient Name: ALESHA HALL MR#: [id number] Specimen #[id number] Source: 1: CERVICAL MATERIAL, (THIN PREP VIAL) Clinical History Z01.419 Routine cattle sorter exam without abnormal findings Z12.4 Encounter for screening for malignant neoplasm of cervix High Risk HPV DNA testing is requested if the diagnosis is ASC-US Date of prior pap: 12/07/2013 INTERPRETATION CERVICAL MATERIAL, (THIN PREP VIAL): Specimen Adequacy: Satisfactory for evaluation. - Endocervical/trans formation zone component present. Descriptive Diagnosis: Negative for intraepithelial lesion or malignancy. Painter Tumbling Barrel: CHRISTINA Haider(ASCP) Electronically Signed Out mk/01/17/2015 01/17/2015 12:00 AM EST [facility] 01/01/2015 2:26 PM EST 01/03/2015 2:26 PM EST us Adonay Gordillo MD PATHOLOGY/CYTOLOGY ORDERABLES Final Result Performing Organization Address City/[facility]/ZIP Co de Phone Number [facility] [address] [place], [place] [address] [phone] * Hemoglobin A1c (01/16/2013 2:08 PM EST) Hemoglobin A1C 5.2 4.0 - 6.0 % 01/16/2013 8:45 PM EST [facility] Estimated Avg Glucose 103 mg/dL 01/16/2013 8:45 PM EST [facility] Comment: The ADA and AACC recommend providing the estimated average glucose result to permit better patient understanding of their HBA1c result. Performed at [address] [place] [address] 01/16/2013 2:08 PM EST 01/16/2013 6:18 PM EST us Adonay Gordillo MD CHEMISTRY ORDERABLES Final Re sult Performing Organization Address [facility]/ZIP Co de Phone Number [facility] [address] [place] [id number] [phone] [facility] from Last 3 Months or Most Recently Relevant to Health Maintenance Additional Health Concerns Infection Onset Date Last Indicated MRSA Comment:MRSA respiratory culture on 12/29/2017. endocarditis at [facility] in [place] approximately 6 months ago. 12/29/2017 12/27/2017 Insurance [facility] MEDICAID Advance Directives Documents on File Type Date Recorded Patient Catalyst Unit Operator Expl anation ACP-Advance Directive 01/05/2018 12:59 [...] 2:38 AM 04/30/2016 10:54 PM Care Teams Emergency Dept Tech Relationship Specialty Start Date End Date Vida Villa APRN - BEATRIZ PCP - General Nurse Practitioner 05/11/24
--- OUTSIDE RECORDS SUMMARY | 2024-08-31 14:17 | XMS_ITS | Encounter Summary ---
Author Organization [facility] Address [address] [place] [address] Care Team Providers Care Gasoline Engine Assembler Name Role Phone Shaikh LINDA Garland Primary Care Provider [phone] Shaikh LINDA Garland Primary Care Provider [phone] Navarro Haider MD Primary Care Provider [phone] Vida Villa DIRECTOR OF PEDIATRIC REHABILITATION Unavailable [phone] Encounter Details Date Type Department Care Team (Late st Contact Info) Description 01/21/2023 Orders Only [facility] [address] [place] [address] Pankaj Yanez, DO [address] [facility] [place] [address] Social History Tobacco Use Types [...] [facility] [address] [place] [address] Navarro Haider MD [address] [place] [address] 08/30/2025 3:00 PM EDT Office Visit [facility] BCP OB [address] [facility] [place] [address] Nadira Hudson PA [address] [facility] [place] [address] documented as of this encounter Procedures [...] on filedocumented in this encounter Care Teams Gasoline Engine Assembler Relationship Specialty Start Date End Date Shaikh Garland MD PCP - General Internal Medicine 07/28/22 04/18/23 Shaikh Garland MD [address] [place] [address] PCP - General Internal Medicine 04/19/23 09/14/23 Navarro Haider MD [address] [place] [address] PCP - General Family Medicine 09/15/23 Vida Villa NP [address] [place] [address] Nurse Practitioner Family Medicine 09/15/23 documented as of this encounter
--- OUTSIDE RECORDS SUMMARY | 2024-08-31 14:17 | XMS_ITS | Encounter Summary ---
Author Organization [facility] Address [address] [place] [address] Care Team Providers Care Electrical System Specialist Name Role Phone Shaikh LINDA Garland Primary Care Provider [phone] Shaikh LINDA Garland Primary Care Provider [phone] Navarro Haider MD Primary Care Provider [phone] Vida Villa SEQUENCING MACHINE OPERATOR Unavailable [phone] Reason for Visit * Reason Comments Med Refill Encounter Details Date Type Department Care Team (Late st Contact Info) Description 02/09/2023 [facility] [address] [place] [address] Shaikh Garland MD [address] [place] [address] Psychophysiological insomnia (Primary Dx) Social History Tobacco [...] [facility] [address] [place] [address] Navarro Haider MD [address] [place] [address] 08/30/2025 3:00 PM EDT Office Visit [facility] [address] [facility] [place] [address] Nadira Hudson PA [address] [facility] [address] [place], [place] [id number] documented as of this encounter Visit Diagnoses Diagnosis Psychophysiological insomnia- Primary Persistent disorder of initiating or maintaining sleep documented in this encounter Care Teams Electrical System Specialist Relationship Specialty Start Date End Date Shaikh Garland MD PCP - General Internal Medicine 07/28/22 04/18/23 Shaikh Garland MD [address] [place] [address] PCP - General Internal Medicine 04/19/23 09/14/23 Navarro Haider MD [address] [place] [address] PCP - General Family Medicine 09/15/23 Vida Villa NP [address] [place] [address] Nurse Practitioner Family Medicine 09/15/23 documented as of this encounter
--- OUTSIDE RECORDS SUMMARY | 2024-08-31 14:17 | XMS_ITS | Encounter Summary ---
Author Organization [facility] Address [address] [place] [address] Care Team Providers Care Pipelines Superintendent Name Role Phone Shaikh LINDA Garland Primary Care Provider [phone] Shaikh LINDA Garland Primary Care Provider [phone] Navarro Haider MD Primary Care Provider [phone] Vida Villa APPLICATION SOFTWARE ENGINEER Unavailable [phone] Encounter Details Date Type Department Care Team (Late st Contact Info) Description 07/28/[address] [facility] [address] [place] [address] Pankaj Yanez [address] [facility] [address] [place], [place] [address] Social History Tobacco Use Types Packs/Day Years [...] 2:00 PM EDT [facility] [address] [place] [address] Navarro Haider MD [address] [place] [address] 08/30/2025 3:00 PM EDT Office Visit [facility] [address] [facility] [address] Nadira Hudson PA [address] [facility] [place] [address] documented as of this encounter Visit Diagnoses Not on filedocumented in this encounter Care Teams Pipelines Superintendent Relationship Specialty Start Date End Date Shaikh Garland MD PCP - General Internal Medicine 07/28/22 04/18/23 Shaikh Garland MD [address] [place] [address] PCP - General Internal Medicine 04/19/23 09/14/23 Navarro Haider MD [address] [place] [address] PCP - General Family Medicine 09/15/23 Vida Villa NP [address] [place] [address] Nurse Practitioner Family Medicine 09/15/23 documented as of this encounter
--- OUTSIDE RECORDS SUMMARY | 2024-08-31 14:17 | XMS_ITS | Encounter Summary ---
Author Organization [facility] Address [address] [place] [place] [address] Care Team Providers Care Asparagus Buncher Name Role Phone Shaikh LINDA Garland Primary Care Provider [phone] Shaikh LINDA Garland Primary Care Provider [phone] Navarro Haider MD Primary Care Provider [phone] Vida Villa BEVERAGE MANAGER Unavailable [phone] Encounter Details Date Type Department Care Team (Late st Contact Info) Description 09/08/2022 Abstract [facility] [address] [facility] [place] [address] Nadira Hudson PA [address] [facility] [address] [place], [place] [address] Social History Tobacco Use Types Packs/Day Years [...] 09/19/2024 2:00 PM EDT [facility] [address] [place] [address] Navarro Haider MD [address] [place] [address] 08/30/2025 3:00 PM EDT Office Visit [facility] [address] [facility] [place] [address] Nadira Hudson PA [address] [facility] [place] [address] documented as of this encounter Visit Diagnoses Not on filedocumented in this encounter Care Teams Asparagus Buncher Relationship Specialty Start Date End Date Shaikh Garland MD PCP - General Internal Medicine 07/28/22 04/18/23 Shaikh Garland MD [address] [place] [address] PCP - General Internal Medicine 04/19/23 09/14/23 Navarro Haider MD [address] [place] [address] PCP - General Family Medicine 09/15/23 Vida Villa NP [address] [place] [address] Nurse Practitioner Family Medicine 09/15/23 documented as of this encounter
--- OUTSIDE RECORDS SUMMARY | 2024-08-31 14:17 | XMS_ITS | Clinical Summary ---
Author Organization [facility] Address [id number] [address] [place] [address] Care Team Providers Care Parcel Wrapper Name Role Phone Tevin Bush MD Primary Care Provider [phone] Allergies Active Allergy Reactions Criticality Noted Date Comments Codeine 08/27/2022 Penicillins 08/27/2022 Medications [id number] c acid ( 19) 29 mg iron- [...] Not on file Insurance MEDICAID Care Teams Parcel Wrapper Relationship Specialty Start Date End Date Tevin Bush MD PCP - General 07/19/17
--- OUTSIDE RECORDS SUMMARY | 2024-08-31 14:17 | XMS_ITS | Encounter Summary ---
Author Organization [facility] Address [address] [place] [address] Care Team Providers Care Lockstitch Lining Setter Name Role Phone Shaikh LINDA Garland Primary Care Provider [phone] Shaikh LINDA Garland Primary Care Provider [phone] Navarro Haider MD Primary Care Provider [phone] Vida Villa TELLERS SUPERVISOR Unavailable [phone] Encounter Details Date Type Department Care Team (Late st Contact Info) Description 12/18/2022 Clinisync Result Encounter [facility] External Department Unsolicited Jessica Yanez DO [address] [place] [address] [place] [address] Social History Tobacco Use Types [...] 09/19/2024 2:00 PM EDT [facility] [address] [place] [address] Navarro Haider MD [address] [place] [address] 08/30/2025 3:00 PM EDT Office Visit [facility] OB [address] [facility] [place] [address] Nadira Hudson PA [address] [facility] [address] [place], [facility] documented as of this encounter Procedures Procedure Name Priority Date/Time Associated Diagnosis Comments US OB GROWTH 12/18/2022 5:59 PM EDT documented in this encounter Results * US OB GROWTH (12/18/2022 5:59 PM EDT) Anatomical Region Laterality Modality Other 12/18/2022 5:59 PM EDT Narrative 12/18/2022 5:59 PM EDT [address] [address] Ultrasound Report Signed Patient: ALESHA HALL MR#: [id number] : 1985 Acct:[id number] Age/Sex: 37 / F ADM Date: 12/17/22 Loc: US Attending Dr: Jessica Yanez D.O. Ordering Physician: Jessica Yanez D.O. Date of Service: 12/17/22 Procedure(s): US OB growth Accession Number(s): [id number] cc: Shaikh Irasema Garland; Jessica Yanez D.O. The [address] [address] Patient Name: ALESHA HALL MRN: TBH:[id number] date: 1985 Sex: F Assigned Patient Location: US Current Patient Location: US Accession/Order Number: [id number] Exam Date: 12/17/2022 15:00 Report Date: 12/18/2022 [...] Signed By: 12/18/22 180 DD/ 175 TD/TT: Treatment Coordinator: Procedure Note Radiology, Radiologist, - 12/18/2022 [place] [address] Ultrasound Report Signed Patient: ALESHA HALL AMR#: [id number] : 1985Acct:[id number] Age/Sex: 37 / FADM Date: 12/17/22 Loc: US Attending Dr: Jessica Yanez D.O. Ordering Physician: Jessica Yanez D.O. Date of Service: 12/17/22 Procedure(s): US OB growth Accession Number(s): [id number] cc: Shaikh Irasema Garland; Jessica Yanez D.O. The [place] [address] Patient Name: ALESHA HALL MRN: [facility]:[id number] date: 1985 Sex: F Assigned Patient Location: US Current Patient Location: US Accession/Order Number: [id number] Exam Date: 12/17/2022 15:00 Report Date: 12/18/2022 [...] M.D. Signed By:12/18/22 180 DD/ 1759 TD/TT: Treatment Coordinator: us Jessica Yanez DO [facility] Final Result documented in this encounter Visit Diagnoses Not on filedocumented in this encounter Care Teams Lockstitch Lining Setter Relationship Specialty Start Date End Date Shaikh Garland MD PCP - General Internal Medicine 07/28/22 04/18/23 Shaikh Garland MD [address] [place] [address] PCP - General Internal Medicine 04/19/23 09/14/23 Navarro Haider MD [address] [facility] [place] [address] PCP - General Family Medicine 09/15/23 Vida Villa NP [address] [place] [address] Nurse Practitioner Family Medicine 09/15/23 documented as of this encounter
[2024-08-31 14:55] LABS: Hematocrit 36.5 % (36.0-48.0); Hemoglobin 12.5 g/dL (12.0-16.0); Immature Granulocytes Abs Auto 0.01 10^3/uL (0.00-0.03); Immature Granulocytes Pct Auto 0.2 % (0.0-0.5); Lymphocytes Absolute Auto 1.8 10^3/uL (1.2-3.8); Mean Corpuscular HGB Conc 34.2 g/dL (29.9-35.2); Mean Corpuscular Hemoglobin 31.3 pg (26.7-34.0); Mean Corpuscular Volume 91.5 fL (81.0-99.0); Platelet Count 241 10^3/uL (150-450); Red Blood Count 3.99 10^6/uL (4.20-5.40); White Blood Count 6.0 10^3/uL (4.0-11.0)
[2024-08-31 15:27] LABS: Anion Gap 17.3; Blood Urea Nitrogen 17.0 mg/dL (7.0-18.0); Calcium 8.6 mg/dL (8.5-10.1); Carbon Dioxide 24.2 mmol/L (21.0-32.0); Chloride 106 mmol/L (98-107); Estimated GFR (African America >60 (>=60 mL/min/1.73m^2); Estimated GFR (Non-African Ame >60 (>=60 mL/min/1.73m^2); Glucose 108 mg/dL (74-106); Potassium 3.5 mmol/L (3.5-5.1); Sodium 144 mmol/L (136-145)
== END 2024-08-31 14:14 | disposition home or self-care (01) ==
LOC: LAB 14:14
PROVIDERS: PCP Family Medicine; Visit Provider Family Medicine
DX: D64.9 Anemia, unspecified (principal); E66.813 Obesity, class 3; Z68.42 Body mass index [BMI] 45.0-49.9, adult; E66.01 Morbid (severe) obesity due to excess calories
CPT/HCPCS: 36415; 80048; 83036; 85025

== ENCOUNTER 2024-09-14 15:07 | Outpatient (OUT) | payer MEDICAID, SELFPAY ==
--- OUTSIDE RECORDS SUMMARY | 2013-10-10 14:00 | XMS_ITS | Encounter Summary ---
Author Organization [facility] Address [address], [address] [place] [address] Care Team Providers Care Entry Writer Name Role Phone Unavailable Primary Care Provider Unavailabl e Encounter Details Date Type Department Care Team (Late st Contact Info) Description 10/10/2013 2:00 PM EDT Hospital Encounter [facility] [address] [place] [phone] Adonay Gordillo MD [address] [place] [phone] Social History Tobacco Use Types Packs/Day Years Used Date Smoking Tobacco: Every Day Cigarettes Smokeless Tobacco: Never Alcohol Use Standard Drinks/Week Comments No 0 (1 standard drink = 0.6 oz pur e alcohol) Interpersonal Safety Domain Source: IP Abuse Scr eening Answer Date Recorded Physical abuse Denies 06/22/2024 Verbal abuse Denies 06/22/2024 Emotional abuse Denies 06/22/2024 Financial abuse Denies 06/22/2024 Sexual abuse Denies 06/22/2024 Comments No Sex and Gender Information Value Date Recorded Sex Assigned at Not on file Legal Sex Female 1:27 PM EDT Gender Identity Not on file Sexual Orientation Not on file documented as of this encounter Plan of Treatment Not on file documented as of this encounter Visit Diagnoses Not on filedocumented in this encounter Additional Health Concerns Infection Onset Date Last Indicated Resolved Time MRSA Comment:MRSA respiratory culture on 12/29/2017. endocarditis at [facility] in [place] approximately 6 months ago. 12/29/2017 12/27/2017 documented as of this encounter
--- OUTSIDE RECORDS SUMMARY | 2014-10-12 08:00 | XMS_ITS | Encounter Summary ---
Author Organization [facility] Address [address] [place] [address] Care Team Providers Care Sr. Logistics Analyst Name Role Phone Unavailable Primary Care Provider Unavailabl e Encounter Details Date Type Department Care Team (Late st Contact Info) Description 10/12/2014 8:00 AM EDT Hospital Encounter [facility] Department [address] [place] [address] [phone] Adonay Gordillo MD [address] [facility] [address] [place] [phone] Social History Tobacco Use Types Packs/Day Years [...] Comment:MRSA respiratory culture on 12/29/2017. endocarditis at [facility] in [place] approximately 6 months ago. 12/29/2017 12/27/2017 documented as of this encounter
--- OUTSIDE RECORDS SUMMARY | 2015-02-11 16:00 | XMS_ITS | Encounter Summary ---
Author Organization [facility] Address [address] [place] [address] Care Team Providers Care Bankruptcy Assistant Name Role Phone Unavailable Primary Care Provider Unavailabl e Encounter Details Date Type Department Care Team (Late st Contact Info) Description 02/11/2015 3:00 PM [facility] Hospital Encounter MTH PRE ADMIT [address] [place] [address] Adonay Gordillo MD [address] [place] [phone] Social History Tobacco Use Types Packs/Day Years [...] Comment:MRSA respiratory culture on 12/29/2017. endocarditis at [facility] in [place] approximately 6 months ago. 12/29/2017 12/27/2017 documented as of this encounter
--- OUTSIDE RECORDS SUMMARY | 2018-04-28 05:00 | XMS_ITS | Continuity of Care Document ---
Author Organization [facility] Address [address] [place] [address] Phone Care Team Providers Care Yard Supervisor Name Role Phone Pool [place] Unavailable Unavailable [...] Limited Oral Eval Intraoral-periapical 1st Film 9 [id number]-anwedmvxpi-[id number] Additional Apr Tobacco Counseling Oral Hygiene Instruction Advance Directives Directive Yes / No Effective Date File Name No Information Encounters Encounter Description Practice Location Reason(s) For Visit Diagnoses Date Provider Providers Copied on Encounter [facility], [address] [place] [address], [id number], [place] tel:[phone] Dental Clinic extraction (chief complaint) Encounter for screening for dental disorders 9 Rosa Elena Lanza. [address] [place], [place], [id number] , [place]. tel:[phone] [facility], [address] [place] [address], [id number], [place] tel:[phone] [facility] cervical spine (chief complaint)ce rvical spine (chief complaint) Segmental and somatic dysfunction of cervical regionCervicalgi aRadiculopathy, cervical regionSegmental and somatic dysfunction of thoracic region 9 Yaw Pineda. [address] [place] [address], [id number] , [place]. tel:[phone] [facility], [address] [place] [address], [id number], [place] tel:[phone] Dental Clinic Dental Limited (chief complaint) Encounter for screening for dental disorders 9 Jackelyn Marshall. [address] [place] [address], [id number] , [place]. tel:[phone] Family History Family Member Type Diagnosis Age At Onset Father Problem (finding) Mother Problem (finding) hypertension Mother Problem (finding) Alive and well Payers Payer name Insurance type Covered constitution party ID Ophelia phillips(s) D Medicaid Primary [facility] [id number] Social History Type Description Quantity Date Captured [...]
--- OUTSIDE RECORDS SUMMARY | 2021-10-14 08:30 | XMS_ITS | Continuity of Care Document ---
Author Organization [facility] Address [address] [place] [address] [place] [address] Phone Care Team Providers Care Food Safety Field Specialist Name Role Phone Sarah Dunne Unavailable Unavailable Procedures Procedure Date PSYCH DIAGNOSTIC EVALUATION PSYCL/NRPSYC TST PHY/QHP [facility] PSYCL/NRPSYC TST PHY/QHP OFFICE/OUTPATIENT VISIT, [facility] [place] Advance Directives Directive Yes / No Effective Date File Name No Information Encounters Encounter Description Practice Location Reason(s) For Visit Diagnoses Date Provider Providers Copied on Encounter PSYCH DIAGNOSTIC EVALUATION [place] [facility] [facility], [address] [place] [address], [id number], [place] tel:[phone] [facility] Weight Loss Surgery No Information Uzair Smith. [address] [place] [address], [id number], [place]. tel:[phone] Referring Provider: Sarah Dunne, [address] [place] [address], [id number]. tel:[phone] OFFICE/OUTPATI ENT VISIT, [facility] [employer] [facility], [address] [place] [address], [id number], [place] tel:[phone] [facility] Weight Loss Surgery No Information Ibeth Hernandez. [address] [place] [address], [id number], [place]. tel:[phone] Referring Provider: David Parada, [address], [place], [address]. tel:[phone] Family History Family Member Type Diagnosis Age At Onset No Information Payers Payer name Insurance type Covered green party ID Ophelia phillips(s) [employer] [id number] Social History Type Description Quantity Date Captured Comments Sex Female Smoking Status No Information Chief Complaint And Reason For Visit No Information Reason For Referral Reason For Referral No Information History Of Present Illness Encounter Date Complaint History Of Prese nt Illness No Information Functional Status Date Functional Assessmen t No Information Instructions Date Instruction Additional Infor mation No Information Assessments Type Assessment Date No Information Patient Care Teams Name Effective Dates (start - stop) Status Members No Information
--- OUTSIDE RECORDS SUMMARY | 2024-09-14 15:10 | XMS_ITS | Encounter Summary ---
Author Organization [facility] Address [address] [place] [address] Care Team Providers Care Forensic Investigator Name Role Phone Shaikh LINDA Garland Primary Care Provider [phone] Shaikh LINDA Garland Primary Care Provider [phone] Navarro Haider MD Primary Care Provider [phone] Vida Villa NP Unavailable [phone] Shaikh LINDA Garland Unavailable [phone] Encounter Details Date Type Department Care Team (Late st Contact Info) Description 01/21/2023 Orders Only [facility] [address] [place] [address] Pankaj Yanez, DO [address] [facility] [place] [address] Social History Tobacco Use Types [...] Visit [facility] [address] [place] [address] Navarro Haider MD [address] [place] [address] 08/30/2025 3:00 PM EDT Office Visit [facility] [address] [place] [address] Nadira Hudson PA [address] [facility] [place] [address] documented as of this encounter Procedures [...] on filedocumented in this encounter Care Teams Forensic Investigator Relationship Specialty Start Date End Date Shaikh Garland MD PCP - General Internal Medicine 07/28/22 04/18/23 Shaikh Garland MD [address] [place] [address] PCP - General Internal Medicine 04/19/23 09/14/23 Navarro Haider MD [address] [place] [address] PCP - General Family Medicine 09/15/23 Shaikh Garland MD [address] [place] [address] PCP - FFS [facility] 05/16/24 Vida Villa NP [address] [place] [address] Nurse Practitioner Family Medicine 09/15/23 documented as of this encounter
--- OUTSIDE RECORDS SUMMARY | 2024-09-14 15:10 | XMS_ITS | Encounter Summary ---
Author Organization [facility] Address [address] [facility] [place] [address] Care Team Providers Care Salesperson Shoes Name Role Phone Navarro Haider MD Primary Care Provider [phone] Vida Villa AGRI BUSINESS AGENT Unavailable [phone] Shaikh LINDA Garland Unavailable [phone] Encounter Details Date Type Department Care Team (Late st Contact Info) Description 08/29/2024 Orders Only [facility] [address] [place] [address] Kavitha Vega MA [address] [facility] [place] [address] Social History Tobacco Use Types Packs/Day Years [...] [facility] [address] [place] [address] Navarro Haider MD [address] [place] [address] 08/30/2025 3:00 PM EDT Office Visit [facility] [place] [address] [place] [address] Nadira Hudson PA [address] [facility] [place] [address] documented as of this encounter Procedures Procedure Name Priority Date/Time Associated Diagnosis Comments PAP SMEAR Routine 08/24/2024 12:00 AM EDT documented in this encounter Results * Pap Smear (08/24/2024 12:00 AM EDT) Swab Cervical swab / Unknown us Nadira [facility] ORDERABLES Final Re sult EXTERNAL LAB documented in this encounter Visit Diagnoses Not on filedocumented in this encounter Care Teams Salesperson Shoes Relationship Specialty Start Date End Date Navarro Haider MD [address] [place] [address] PCP - General Family Medicine 09/15/23 Shaikh Garland MD [address] [place] [address] PCP - FFS [facility] 05/16/24 Vida Villa NP [address] [place] [address] Nurse Practitioner Family Medicine 09/15/23 documented as of this encounter
--- OUTSIDE RECORDS SUMMARY | 2024-09-14 15:10 | XMS_ITS | Encounter Summary ---
Author Organization [facility] Address [address] [place] [address], [address] [place] [address] Care Team Providers Care Early Childhood Aide Classroom Name Role Phone Vida Villa APRN - MOVIE CRITIC Primary Care Pro vider Unavailable Reason for Visit * Reason Comments Other Encounter Details Date Type Department Care Team (Late st Contact Info) Description 03/16/2014 Refill [facility] [address] [place] [address] Adonay Gordillo MD [address] [place] [address] Dr [place] [id number] Other Social History Tobacco Use Types Packs/Day [...] Comment:MRSA respiratory culture on 12/29/2017. endocarditis at [facility] approximately 6 months ago. 12/29/2017 12/27/2017 documented as of this encounter Care Teams Early Childhood Aide Classroom Relationship Specialty Start Date End Date Vida Villa APRN - NP PCP - General Nurse Practitioner 05/11/24 documented as of this encounter
--- OUTSIDE RECORDS SUMMARY | 2024-09-14 15:10 | XMS_ITS | Encounter Summary ---
Author Organization [facility] Address [address] [place] [address] Care Team Providers Care Private Chef Name Role Phone Shaikh LINDA Garland Primary Care Provider [phone] Shaikh LINDA Garland Primary Care Provider [phone] Navarro Haider MD Primary Care Provider [phone] Vida Villa NP Unavailable [phone] Shaikh LINDA Garland Unavailable [phone] Encounter Details Date Type Department Care Team (Late st Contact Info) Description 12/18/2022 Clinisync Result Encounter [facility] External Department Unsolicited Jessica Yanez, DO [address] [place] [address] [place], [place] [address] Social History Tobacco Use Types Packs/Day Years [...] Visit [facility] [address] [place] [address] Navarro Haider MD [address] [place] [address] 08/30/2025 3:00 PM EDT Office Visit [facility] [address] [facility] [place] [address] Nadira Hudson PA [address] [facility] [place] [address] documented as of this encounter Procedures Procedure Name Priority Date/Time Associated Diagnosis Comments US OB BPP W NON-STRESS 12/18/2022 5:55 PM EDT documented in this encounter Results * US OB BPP W NON-STRESS (12/18/2022 5:55 PM EDT) Anatomical Region Laterality Modality Other 12/18/2022 5:55 PM EDT Narrative 12/18/2022 5:55 PM EDT The [address] [address] Ultrasound Report Signed Patient: ALESHA HALL MR#: [id number] : 1985 Acct:[id number] Age/Sex: 37 / F ADM Date: 12/17/22 Loc: US Attending Dr: Jessica Yanez D.O. Ordering Physician: Jessica Yanez D.O. Date of Service: 12/17/22 Procedure(s): US OB BPP w non-stress Accession Number(s): [id number] cc: Shaikh Irasema Garland; Jessica Yanez D.O. The [address] [address] Patient Name: ALESHA HALL MRN: [id number] date: 1985 Sex: F Assigned Patient Location: [facility] Current Patient Location: Accession/Order Number: [id number] Exam Date: 12/17/2022 15:00 Report Date: 12/18/2022 [...] M.D. Signed By: 12/18/221756 DD/ 54 TD/TT: Sql Server Dba: Procedure Note Radiology, Radiologist, MD - 12/18/2022 [place] [address] Ultrasound Report Signed Patient: ALESHA HALL AMR#: [id number] : 1985Acct:[id number] Age/Sex: 37 / FADM Date: 12/17/22 Loc: US Attending Dr: Jessica Yanez D.O. Ordering Physician: Jessica Yanez D.O. Date of Service: 12/17/22 Procedure(s): US OB BPP w non-stress Accession Number(s): [id number] cc: Shaikh Irasema Garland; Jessica Yanez D.O. The [place] [address] Patient Name: ALESHA HALL MRN: [id number] date: 1985 Sex: F Assigned Patient Location: [facility] Current Patient Location: Accession/Order Number: [id number] Exam Date: 12/17/2022 15:00 Report Date: 12/18/2022 [...] Dykes M.D. Signed By:12/18/221756 DD/ 54 TD/TT: Sql Server Dba: us Jessica Beau DO [facility] Final Result documented in this encounter Visit Diagnoses Not on filedocumented in this encounter Care Teams Private Chef Relationship Specialty Start Date End Date Shaikh Garland MD PCP - General Internal Medicine 07/28/22 04/18/23 Shaikh Garland MD [address] [place] [address] PCP - General Internal Medicine 04/19/23 09/14/23 Navarro Haider MD [address] [place] [address] PCP - General Family Medicine 09/15/23 Shaikh Garland MD [address] [place] [address] PCP - FFS [facility] 05/16/24 Vida Villa NP [address] [place] [address] Nurse Practitioner Family Medicine 09/15/23 documented as of this encounter
--- OUTSIDE RECORDS SUMMARY | 2024-09-14 15:10 | XMS_ITS | Encounter Summary ---
Author Organization [facility] Address [address] [place] [address] Care Team Providers Care Natural Foods Clerk Name Role Phone Navarro Haider MD Primary Care Provider [phone] Vida Villa TRANSMISSION TECHNICIAN Unavailable [phone] Shaikh LINDA Garland Unavailable [phone] Encounter Details Date Type Department Care Team (Late Contact Info) Description 08/31/2024 Orders Only [facility] [address] [place] [address] Navarro Haider MD [address] [place] [address] URI, acute Social History Tobacco Use Types [...] 09/19/2024 2:00 PM EDT Office Visit [facility] [address] [place] [address] Navarro Haider MD [address] [place] [address] 08/30/2025 3:00 PM EDT Office Visit [facility] [place] [place] [address] [facility] [place] [address] Nadira Hudson PA [address] [facility] [place] [address] documented as of this encounter Visit Diagnoses Diagnosis URI, acute Acute upper respiratory infections of unspecified site documented in this encounter Care Teams Natural Foods Clerk Relationship Specialty Start Date End Date Navarro Haider MD [address] [place] [address] PCP - General Family Medicine 09/15/23 Shaikh Garland MD [address] [place] [address] PCP - S [facility] 05/16/24 Vida Villa NP [address] [place] [address] Nurse Practitioner Family Medicine 09/15/23 documented as of this encounter
--- OUTSIDE RECORDS SUMMARY | 2024-09-14 15:10 | XMS_ITS | Encounter Summary ---
Author Organization [facility] Address [address] [facility] [place] [address] Care Team Providers Care Riding Coach Name Role Phone Shaikh LINDA Garland Primary Care Provider [phone] Shaikh LINDA Garland Primary Care Provider [phone] Navarro Haider MD Primary Care Provider [phone] Vida Villa NP Unavailable [phone] Shaikh LINDA Garland Unavailable [phone] Encounter Details Date Type Department Care Team (Late st Contact Info) Description 07/28/2022 Abstract [facility] [place] [address] [place] [address] Panakj Yanez DO [address] [facility] [address] [place] [place], [place] [address] Social History Tobacco Use Types Packs/Day Years [...] [facility] [address] [place] [address] Navarro Haider MD [address] [place] [address] 08/30/2025 3:00 PM EDT Office Visit [facility] [place] [address] [place] [address] Nadira Hudson PA [address] [facility] [place] [address] documented as of this encounter Visit Diagnoses Not on filedocumented in this encounter Care Teams Riding Coach Relationship Specialty Start Date End Date Shaikh Garland MD PCP - General Internal Medicine 07/28/22 04/18/23 Shaikh Garland MD [address] [place] [address] PCP - General Internal Medicine 04/19/23 09/14/23 Navarro Haider MD [address] [place] [address] PCP - General Family Medicine 09/15/23 Shaikh Garland MD [address] [place] [address] PCP - S [facility] 05/16/24 Vida Villa NP [address] [place] [address] Nurse Practitioner Family Medicine 09/15/23 documented as of this encounter
--- OUTSIDE RECORDS SUMMARY | 2024-09-14 15:10 | XMS_ITS | Clinical Summary ---
Author Organization [facility] Address [address], [address] [place] [address] Care Team Providers Care Enrichment Teacher Name Role Phone Vida Villa RUG CUTTER - RESIDENTIAL DOOR UNIT INSTALLER Primary Care Pro vider Unavailable Allergies Active [...] TWICE (no more copies) Records Sent to Hpoe Jimenez NP Records Sent to Orville Mahmood M.D. Referred to Count Includes [facility] Pain Management: Appt on 01-18-14 at [...] EDT Anesthesia Event [facility] [address] [place] [address] Efrem Velasquez, RUG CUTTER - CUSTOMER OPERATIONS MANAGER 06/22/2024 8:38 AM EDT - 06/22/2024 9:14 AM EDT Surgery [facility] [address] [place] [address] Gordon Zaragoza MD COLONOSCOPY 06/22/2024 8:03 AM EDT - 06/22/2024 10:41 AM EDT Hospital Encounter [facility] [address] [place] [address] Gordon Zaragoza MD Discharge Disposition: Home or [...] Procedure Name Priority Date/Time Associated Diagnosis Comments [place] COLON CA SCRN NOT HI RSK IND 06/22/2024 9:13 AM EDT Rectal bleeding HCG, SERUM, QUALITATIVE Routine 06/22/2024 8:30 AM EDT CLOSING MACHINE OPERATOR CYTOLOGY Routine 01/01/2015 2:26 PM EST HEMOGLOBIN A1C Routine 01/16/2013 2:08 PM EST from Last 3 Months or Most Recently Relevant to Health Maintenance Results * HCG Qualitative, Serum (06/22/2024 8:30 AM EDT) Pathologist [facility] Preg, Serum NEGATIVE NEGATIVE 06/22/2024 8:30 AM EDT [facility] Comment: Specimens with hCG levels near the threshold of the test (25 mIU/mL) may give a negative or indeterminate result. In such cases, another test should be performed with a new specimen in 48-72 hours. If early is suspected clinically in this setting, correlation with quantitative serum b-hCG level is suggested. [facility] has confirmed the use of plasma for this test. This has not been cleared or approved by the U.S. Food and Drug Administration. The FDA has determined that such clearance is not necessary. Blood BLOOD SPECIMEN / Unknown 06/22/2024 8:30 AM EDT 06/22/2024 8:51 AM EDT us Gordon Zaragoza MD CHEMISTRY ORDERABLES Final R esult [facility] [address] [place] [address], [facility] [phone] * CLOSING MACHINE OPERATOR Cytology (01/01/2015 2:26 PM EST) Cytology Report (NOTE) [id number] [facility] ANATOMIC PATHOLOGY [address] [place] [id number] GYNECOLOGIC CYTOLOGY REPORT Patient Name: ALESHA HALL MR#: [id number] Specimen #[id number] Source: 1: CERVICAL MATERIAL, (THIN PREP VIAL) Clinical History Z01.419 Routine director part exam without abnormal findings Z12.4 Encounter for screening for malignant neoplasm of cervix High Risk HPV DNA testing is requested if the diagnosis is ASC-US Date of prior pap: 12/07/2013 INTERPRETATION CERVICAL MATERIAL, (THIN PREP VIAL): Specimen Adequacy: Satisfactory for evaluation. - Endocervical/trans formation zone component present. Descriptive Diagnosis: Negative for intraepithelial lesion or malignancy. [place]: CHRISTINA Haider(ASCP) Electronically Signed Out mk/01/17/2015 01/17/2015 12:00 AM EST [facility] 01/01/2015 2:26 PM EST 01/03/2015 2:26 PM EST us Adonay Gordillo MD PATHOLOGY/CYTOLOGY ORDERABLES Final Result Performing Organization Address City/[facility]/ZIP Co de Phone Number [facility] [address] [place], [place] [address] [phone] * Hemoglobin A1c (01/16/2013 2:08 PM EST) Hemoglobin A1C 5.2 4.0 - 6.0 % 01/16/2013 8:45 PM EST [facility] Estimated Avg Glucose 103 mg/dL 01/16/2013 8:45 PM EST [facility] Comment: The ADA and AACC recommend providing the estimated average glucose result to permit better patient understanding of their HBA1c result. Performed at [address] [place] [address] 01/16/2013 2:08 PM EST 01/16/2013 6:18 PM EST us Adonay Gordillo MD CHEMISTRY ORDERABLES Final Re sult Performing Organization Address [facility]/ZIP Co de Phone Number [facility] [address] [id number] [phone] [facility] from Last 3 Months or Most Recently Relevant to Health Maintenance Additional Health Concerns Infection Onset Date Last Indicated MRSA Comment:MRSA respiratory culture on 12/29/2017. endocarditis at [facility] in [place] approximately 6 months ago. 12/29/2017 12/27/2017 Insurance [facility] MEDICAID Advance Directives Documents on File Type Date Recorded Patient Candy Packer Expl anation ACP-Advance Directive 01/05/2018 12:59 PM [...] 2:38 AM 04/30/2016 10:54 PM Care Teams Enrichment Teacher Relationship Specialty Start Date End Date Vida Villa APRN - BEATRIZ PCP - General Nurse Practitioner 05/11/24
--- OUTSIDE RECORDS SUMMARY | 2024-09-14 15:10 | XMS_ITS | Encounter Summary ---
Author Organization [facility] Address [address] [place] [address] Care Team Providers Care Die Caster Name Role Phone Shaikh LINDA Garland Primary Care Provider [phone] Shaikh LINDA Garland Primary Care Provider [phone] Navarro Haider MD Primary Care Provider [phone] Vida Villa NP Unavailable [phone] Shaikh LINDA Garland Unavailable [phone] Encounter Details Date Type Department Care Team (Late st Contact Info) Description 09/08/2022 Abstract [facility] [place] [address] [place] [address] Nadira Hudson PA [address] [place], [id number] Social History Tobacco Use Types Packs/Day Years [...] Visit [facility] [address] [place] [address] Navarro Haider MD [address] [place] [address] 08/30/2025 3:00 PM EDT Office Visit [facility] [place] [address] [place] [address] Nadira Hudson PA [address] [place], [place] [id number] documented as of this encounter Visit Diagnoses Not on filedocumented in this encounter Care Teams Die Caster Relationship Specialty Start Date End Date Shaikh Garland MD PCP - General Internal Medicine 07/28/22 04/18/23 Shaikh Garland MD [address] [place] [address] PCP - General Internal Medicine 04/19/23 09/14/23 Navarro Haider MD [address] [place] [phone] PCP - General Family Medicine 09/15/23 Shaikh Garland MD [address] [place] [address] PCP - FFS [facility] 05/16/24 Vida Villa NP [address] [place] [phone] Nurse Practitioner Family Medicine 09/15/23 documented as of this encounter
--- OUTSIDE RECORDS SUMMARY | 2024-09-14 15:10 | XMS_ITS | Encounter Summary ---
Author Organization [facility] Address [address] [place] [address] Care Team Providers Care Side Hemmer Name Role Phone Shaikh LINDA Garland Primary Care Provider [phone] Shaikh LINDA Garland Primary Care Provider [phone] Navarro Haider MD Primary Care Provider [phone] Vida Villa NP Unavailable [phone] Shaikh LINDA Garland Unavailable [phone] Reason for Visit * Reason Comments Med Refill Encounter Details Date Type Department Care Team (Late st Contact Info) Description 02/09/2023 [facility] [address] [place] [phone] Shaikh Garland MD [address] [place] [address] Psychophysiological insomnia (Primary Dx) Social History Tobacco [...] [facility] [address] [place] [address] Navarro Haider MD [address] [place] [address] 08/30/2025 3:00 PM EDT Office Visit [facility] [place] [address] [facility] [place] [phone] Nadira Hudson PA [address] [place], [place] [phone] documented as of this encounter Visit Diagnoses Diagnosis Psychophysiological insomnia- Primary Persistent disorder of initiating or maintaining sleep documented in this encounter Care Teams Side Hemmer Relationship Specialty Start Date End Date Shaikh Garland MD PCP - General Internal Medicine 07/28/22 04/18/23 Shaikh Garland MD [address] [place] [phone] PCP - General Internal Medicine 04/19/23 09/14/23 Navarro Haider MD [address] [place] [phone] PCP - General Family Medicine 09/15/23 Shaikh Garland MD [address] [place] [phone] PCP - FFS [facility] 05/16/24 Vida Villa NP [address] [place] [address] Nurse Practitioner Family Medicine 09/15/23 documented as of this encounter
--- OUTSIDE RECORDS SUMMARY | 2024-09-14 15:10 | XMS_ITS | Encounter Summary ---
Author Organization [facility] Address [address] [place] [address] Care Team Providers Care Rn Quality Name Role Phone Shaikh LINDA Garland Primary Care Provider [phone] Navarro Haider MD Primary Care Provider [phone] Vida Villa NP Unavailable [phone] Shaikh LINDA Garland Unavailable [phone] Encounter Details Date Type Department Care Team (Late st Contact Info) Description 09/13/2023 Orders Only [facility] [address] [place] [address] Shaikh Garland MD [address] [place] [address] Social History Tobacco Use Types Packs/Day Years [...] [facility] [address] [place] [address] Navarro Haider MD [address] [place] [address] 08/30/2025 3:00 PM EDT Office Visit [facility] [place] [address] [place] [phone] Nadira Hudson PA [address] [place] [address] documented as of this encounter Visit Diagnoses Not on filedocumented in this encounter Care Teams Rn Quality Relationship Specialty Start Date End Date Shaikh Garland MD [address] [place] [phone] PCP - General Internal Medicine 04/19/23 09/14/23 Navarro Haider MD [address] [place] [address] PCP - General Family Medicine 09/15/23 Shaikh Garland MD [address] [place] [address] PCP - FFS [facility] 05/16/24 Vida Villa NP [address] [place] [address] Nurse Practitioner Family Medicine 09/15/23 documented as of this encounter
--- OUTSIDE RECORDS SUMMARY | 2024-09-14 15:10 | XMS_ITS | Encounter Summary ---
Author Organization [facility] Address [address] [place] [address] Care Team Providers Care Hospitalist Physician Name Role Phone Navarro Haider MD Primary Care Provider [phone] Vida Villa SENIOR FRONT END WEB DEVELOPER Unavailable [phone] Shaikh LINDA Garland Unavailable [phone] Encounter Details Date Type Department Care Team (Late Contact Info) Description 08/31/2024 Results Follow-Up [facility] [address] [place] [address] Navarro Haider MD [address] [place] [address] Social History Tobacco Use Types Packs/Day Years [...] 09/19/2024 2:00 PM EDT Office Visit [facility] [address] [place] [address] Navarro Haider MD [address] [place] [phone] 08/30/2025 3:00 PM EDT Office Visit [facility] [place] [address] [place] [address] Nadira Hudson PA [address] [place] [address] documented as of this encounter Visit Diagnoses Not on filedocumented in this encounter Care Teams Hospitalist Physician Relationship Specialty Start Date End Date Navarro Haider MD [address] [place] [phone] PCP - General Family Medicine 09/15/23 Shaikh Garland MD [address] [place] [phone] PCP - FFS [facility] 05/16/24 iVda Villa NP [address] [place] [phone] Nurse Practitioner Family Medicine 09/15/23 documented as of this encounter
--- OUTSIDE RECORDS SUMMARY | 2024-09-14 15:10 | XMS_ITS | Clinical Summary ---
Author Organization [employer] Address [id number] [address] [place] [address] Care Team Providers Care Biology Faculty Member Name Role Phone Tevin Bush MD Primary Care Provider [phone] Allergies Active Allergy Reactions Criticality Noted Date Comments Codeine 08/27/2022 Penicillins 08/27/2022 Medications [id number] c acid ( 19) 29 mg iron- [...] Not on file Insurance MEDICAID Care Teams Biology Faculty Member Relationship Specialty Start Date End Date Tevin Bush MD PCP - General 07/19/17
--- OUTSIDE RECORDS SUMMARY | 2024-09-14 15:10 | XMS_ITS | Clinical Summary ---
Author Organization [facility] Address [address] [place] [address] Care Team Providers Care Caustic Plant Worker Name Role Phone Navarro Haider MD Primary Care Provider [phone] Vida Villa SIGNAL REPAIRER Unavailable Shaikh LINDA Garland Unavailable [phone] Allergies Active Allergy Reactions Criticality Noted Date [...] mouth Daily 30 tablet 11 11/23/19 24 025 Active naloxone (Narcan) 4 [...] mg) by mouth Daily 30 tablet 11 03/21/19 25 026 Active mupirocin (Bactroban) 2 % ointment APPLY TOPICALLY IN THE MORNING AND BEFORE BEDTIME FOR 5 DAYS 03/09/19 25 Active cholecalciferol (Vitamin D-3) 20 MCG (800 UNIT) tabletIndications :Vitamin D deficiency Take 1 tablet (20 mcg) by mouth Daily 90 tablet 06/20/19 25 Active predniSONE (Deltasone) 10 MG tabletIndications [...] (BMI) of 45.0 to 49.9 in adult ([facility]) Take 1 tablet (37.5 mg) by mouth in the morning. Take before meals. 30 tablet 08/18/19 25 025 Active albuterol HFA 90 mcg/act inhalerIndication s:URI, acute Inhale 2 puffs every 4 (four) hours if needed for wheezing or shortness of breath 18 g 2 09/01/19 25 Active phentermine (Adipex-P) 37.5 MG tabletIndications :Class 3 severe obesity due to excess calories with serious comorbidity and body mass index (BMI) of 45.0 to 49.9 in adult ([facility]),Encount er for weight management Take 1 tablet (37.5 mg) by mouth in the morning. Take before meals. 30 tablet 06/27/19 25 025 Discontinu ed(Reorder ) albuterol HFA 90 mcg/act inhalerIndication s:URI, acute Inhale 2 puffs every 4 (four) hours if needed for wheezing or shortness of breath 18 g 2 07/14/19 25 025 Discontinu ed(Reorder ) clindamycin (Cleocin) [...] (BMI) of 45.0 to 49.9 in adult ([facility]) Take 1 tablet (37.5 mg) by mouth [...] prednisone and use atarax PRN. Follow with bank representative. Allergic reaction due to antibacterial drug 05/2024 Assessment & Plan (07/19/2024 1:44 PM EDT): Likely reaction to macrobid. Treat with high dose prednisone and use atarax PRN. Follow with bank representative. Primary hypertension 03/09/2024 Assessment & Plan (08/17/2024 [...] reviewed. Continue medications as prescribed. Refer to customer marketing assistant. Assessment & Plan (06/26/2024 2:28 PM EDT): [...] reviewed. Continue medications as prescribed. Refer to customer marketing assistant. Assessment & Plan (11/23/2023 4:11 PM EDT): [...] Plan (11/23/2023 9:41 PM EDT): Follows with [facility]. Was seeing Hope Jimenez. Currently takes Suboxone [...] call office if worsening symptoms. Bacterial endocarditis ([facility]) 12/26/2017 06/26/2024 Overview (04/05/2023): Hx of and suspected current Encounters Date Type Department Care Team Description 08/31/2024 Results Follow-Up [facility] [address] [place] [address] Navarro Haider MD 08/31/2024 Orders Only [facility] [address] [place] [address] Navarro Haider MD URI, acute 08/31/2024 Clinisync Result Encounter [facility] External Department Unsolicited Navarro Haider MD 08/29/2024 Orders Only [facility] [address] [place] [phone] Gary KavithaTRANG 08/24/2024 3:00 PM EDT Office Visit [facility] [place] [address] [facility] [facility] [place] [address] Nadira Hudson PA Well woman exam with routine gynecological exam 08/24/2024 Clinisync Result Encounter [facility] External Department Unsolicited Provider, Generic External Data 08/24/2024 Bamboo flowsheet [facility] [place] [address] [facility] [place] [address] Nadira Hudson PA 08/17/2024 2:45 PM EDT Office Visit [facility] [address] [place] [address] Navarro Haider MD Primary hypertension (Primary Dx); History of bacterial endocarditis; Anemia, unspecified type; Class 3 severe obesity due to excess calories with serious comorbidity and body mass index (BMI) of 45.0 to 49.9 in adult ([facility]) 08/17/2024 Telephone [facility] [address] [place] [address] Navarro Haider MD 08/17/2024 Bamboo flowsheet [facility] [address] [place] [address] Navarro Haider MD 08/08/2024 Telephone [facility] [address] [place] [address] Navarro Haider MD antibiotic for abcess in mouth 07/27/2024 4:00 PM EDT Office Visit [facility] [address] [place] [address] Rufino Cm DPM Verruca plantaris (Primary Dx); Foot pain, right 07/27/2024 Bamboo flowsheet [facility] [address] [place] [address] Rufino Cm DPM 07/27/2024 Travel 07/25/2024 Telephone [facility] [address] [place] [address] [place] [address] Sharee Riggs LPN 07/19/2024 1:00 PM EDT Office Visit [facility] [address] [place] [address] Navarro Haider MD Allergic reaction due to antibacterial drug (Primary Dx); Urticaria 07/19/2024 Bamboo flowsheet [facility] [address] [place] [address] Navarro Haider MD 07/17/2024 Orders Only [facility] [address] [place] [address] Jd Alcazar PA 07/13/2024 2:40 PM EDT Office Visit [facility] [address] [place] [address] Rufino Cm, DPM Verruca plantaris (Primary Dx); Foot pain, right 07/13/2024 Travel 07/13/2024 Refill [facility] [address] [place] [address] Navarro Haider MD URI, acute 07/11/2024 Telephone [facility] [address] [place] [address] Navarro Haider MD uti 06/26/2024 1:30 PM EDT Office Visit [facility] [address] [place] [address] Navarro Haider MD Primary hypertension (Primary Dx); URI, acute; Class 3 severe obesity due to excess calories with serious comorbidity and body mass index (BMI) of 45.0 to 49.9 in adult ([facility]); Encounter for weight management; Opioid dependence, uncomplicated ([facility]) 06/26/2024 Telephone [facility] [address] [place] [address] Navarro Haider MD 06/26/2024 Bamboo flowsheet [facility] [address] [place] [address] Navarro Haider MD 06/19/2024 Refill [facility] [address] [place] [address] Navarro Haider MD Vitamin D deficiency from Last 3 Months Immunizations Immunization Administration [...] JOSE ALEJANDRO MORRISON [address] [place] [address] Navarro Haider MD [address] [place] [address] 08/30/2025 3:00 PM EDT Office Visit [facility] [place] [address] [facility] [place] [address] Nadira Hudson PA [address] [place] [address] Health Maintenance Due Date Last Done Comments Influenza Vaccine (#1) 2024 03/11/2018 Cervical Cancer Screening 08/24/2029 HPV/Cotest 08/24/2029 10/01/2022 Pap Smear 08/24/2029 08/24/2024, 08/25/2022, 12/16 Procedures Procedure Name Priority Date/Time Associated Diagnosis Comments ALL BASIC METABOLIC PANEL Routine 08/31/2024 2:44 PM EDT MLR HEMOGLOBIN A1C Routine 08/31/2024 2: 44 PM EDT ALL CBC WITH AUTO DIFF Routine 08/31/2024 2:44 PM EDT IGP,APTIMA HPV,AGE GDLN Routine 08/24/2024 3:08 PM EDT PAP SMEAR Routine 08/24/2024 12:00 AM EDT XR CHEST 1 VIEW Routine 07/17/2024 1:46 PM EDT THINPREP PAP AND HPV MRNA E6/E7 W/RFL HPV 16,18/45 Routine 10/01/2022 3:44 PM EDT Well woman exam with routine gynecological exam from Last 3 Months or Most Recently Relevant to Health Maintenance Results * MLR HEMOGLOBIN A1C (08/31/2024 2:44 PM EDT) GLYCOHEMOGLOBIN A1C 5.1 4.5 - 6.2 % TBH Comment: ADA RECOMMENDED LIMIT 4.0 - 6.0 ADA THERAPEUTIC TARGET < 7.0 ACTION SUGGESTED > 7.0 ESTIMATED AVERAGE GLUCOSE 100 mg/dL TBH 08/31/2024 2:44 PM EDT 08/31/2024 2:46 PM EDT Narrative CLINISYNC - 08/31/2024 3:08 PM EDT us Navarro Haider MD CLINISYNC Final Result CLINISYNC TB * (ABNORMAL) ALL CBC WITH AUTO DIFF (08/31/2024 2:44 PM EDT) Pathologist [facility] TB WBC 6.0 4.0 - 11.0 10 3/uL TBH TBH RBC 3.99(L) 4.20 - 5.40 10 6/uL TBH TBH HGB 12.5 12.0 - 16.0 g/dL TBH TBH HCT 36.5 36.0 - 48.0 % TBH TBH MCV 91.5 81.0 - 99.0 fL TBH TBH MCH 31.3 26.7 - 34.0 pg TBH TBH MCHC 34.2 29.9 - 35.2 g/dL TBH TBH RDW 13.5 11.0 - 15.0 % TBH TBH PLT 241 150 - 450 10 3/uL TBH TBH MPV 10.3 9.5 - 13.5 fL TBH NEUTROPHILS PERCENT AUTO 54.7 43.0 - 75.0 % TBH LYMPHOCYTES PERCENT AUTO 29.3 20.5 - 60.0 % TBH MONOCYTES PERCENT AUTO 8.4 1.7 - 12.0 % TBH TBH EO % 5.4 0.9 - 7.0 % TBH BASOPHILS PERCENT AUTO 2.0 0.2 - 2.0 % TBH IMMATURE GRANULOCYTES PCT AUTO 0.2 0.0 - 0.5 % TBH NEUTROPHILS ABSOLUTE AUTO 3.3 1.4 - 6.5 10 3/uL TBH LYMPHOCYTES ABSOLUTE AUTO 1.8 1.2 - 3.8 10 3/uL TBH MONOCYTES ABSOLUTE AUTO 0.5 0.3 - 0.8 10 3/uL TBH TBH EO # 0.3 0.0 - 0.7 10 3/uL TBH BASOPHILS ABSOLUTE AUTO 0.1 0.0 - 0.1 10 3/uL TBH IMMATURE GRANULOCYTES ABS AUTO 0.01 0.00 - 0.03 10 3/uL TBH 08/31/2024 2:44 PM EDT 08/31/2024 2:46 PM EDT Narrative CLINISYNC - 08/31/2024 2:59 PM EDT Navarro Haider MD CLINISYLISA Final Result CLINISYNE TB * (ABNORMAL) ALL BASIC METABOLIC PANEL (08/31/2024 2:44 PM EDT) SODIUM 144 136 - 145 mmol/L TBH POTASSIUM 3.5 3.5 - 5.1 mmol/L TBH CHLORIDE 106 98 - 107 mmol/L TBH CARBON DIOXIDE 24.2 21.0 - 32.0 mmol/L TBH ANION GAP 17.3 TBH GLUCOSE 108(H) 74 - 106 mg/dL TBH BLOOD UREA NITROGEN 17.0 7.0 - 18.0 mg/dL TBH CREATININE 0.76 0.55 - 1.02 mg/dL TBH TBH EGFR-AF IRAQI >60 >=60 mL/min/1.7 3m 2 TBH TBH EGFR-NON AF IRAQI >60 >=60 mL/min/1.7 3m 2 TBH BUN CREATININE RATIO 22.4 TBH CALCIUM 8.6 8.5 - 10.1 mg/dL TBH 08/31/2024 2:44 PM EDT 08/31/2024 2:46 PM EDT Narrative CLINISYNC - 08/31/2024 3:31 PM EDT Navarro OAKESISYLISA Final Result Performing Organization Address City/[facility] Co de Phone Number CLINJAKOBNE TB * IGP,APTIMA HPV,AGE GDLN (08/24/2024 3:08 PM EDT) AGE GDLN ACOG TESTING Note . [facility] Comment: TESTS RESULT FLAG UNITS REF RANGE LAB Clinician Provided Cytology Information Source.............Cervix;Endocervix No. of containers..01 ThinPrep Vial Age Asaf KENDALLOG Paula... 30 FLAG LEGEND: L-Low Normal,H-High Normal,LL-Alert Low,HH-Alert High <-Panic Low,>-Panic High,A-Abnormal,AA-Critical Abnormal Performed at: 01 [facility] [address] [place] [address] Vicki Fleming MD, IGP, APTIMA HPV, RFX 16/18,45 Note . [facility] Comment: TESTS RESULT FLAG UNITS REF RANGE LAB DIAGNOSIS: 02 NEGATIVE FOR INTRAEPITHELIAL LESION OR MALIGNANCY. Specimen adequacy: 02 Satisfactory for evaluation. No endocervical component is identified. Performed by: Lexie Alfaro [employer] Executive ([facility]) . 02 Note: Note 02 The Pap [...] <-Panic Low,>-Panic High,A-Abnormal,AA-Critical Abnormal Performed at: [address] [address] Vicki Fleming MD, HPV APTIMA Negative Negative [facility] Comment: This nucleic acid amplification test detects fourteen high- risk HPV types (16,18,31,33,35,39,45,51,52,56,58,59,66,68) without differentiation. Performed at: =[address] [id number] Compliance Representative: Vicki Fleming MD, Phone: [phone] Performed at: [address] [id number] Compliance Representative: Vicki Fleming MD, Phone: [phone] 08/24/2024 3:08 PM EDT 08/24/2024 8:41 PM EDT Narrative CLINISYNC - 08/29/2024 12:08 PM EDT BRUSH-SPATULA CERVIX ENDOCERVIX us Nadira [facility] LAB BLOOD ORDERABLES Final Resul t [facility] * Pap Smear (08/24/2024 12:00 AM EDT) Swab Cervical swab / Unknown us Nadira [facility] CYTOLOGY ORDERABLES Final Re sult Performing Organization Address City/[facility]/ZIP Co de Phone Number EXTERNAL LAB * XR chest 1 view (07/17/2024 1:46 PM EDT) Anatomical Region Laterality Modality Chest Radiographic Estefania ging us Jd BUSBY IMG XR PROCEDURES Final Result * THINPREP PAP AND HPV MRNA E6/E7 W/RFL HPV 16,18/45 (10/01/2022 3:44 PM EDT) us Nadira [facility] BLOOD ORDERABLES Final Resul t Performing Organization Address [facility] Co de Phone Number EXTERNAL LAB from Last 3 Months or Most Recently Relevant to Health Maintenance Insurance [employer] [place]ICA[place] Care Teams Caustic Plant Worker Relationship Specialty Start Date End Date Navarro Haider MD [address] [place] [address] PCP - General Family Medicine 09/15/23 Shaikh Garland MD [address] [place] [address] PCP - FFS [facility] 05/16/24 Vida Villa NP [address] [place] [address] Nurse Practitioner Family Medicine 09/15/23
--- OUTSIDE RECORDS SUMMARY | 2024-09-14 15:10 | XMS_ITS | Encounter Summary ---
Author Organization [facility] Address [address] [place] [address] Care Team Providers Care Lot Porter Name Role Phone Navarro Haider MD Primary Care Provider [phone] Vida Villa CREDIT COUNSELOR Unavailable [phone] Shaikh LINDA Garland Unavailable [phone] Encounter Details Date Type Department Care Team (Late Contact Info) Description 07/17/2024 Orders Only [facility] [address] [place] [address] Jd Alcazar PA [address] [place], [place] [id number] Social History Tobacco Use Types Packs/Day Years [...] 09/19/2024 2:00 PM EDT Office Visit [facility] [address] [place] [address] Navarro Haider MD [address] [place] [address] 08/30/2025 3:00 PM EDT Office Visit [facility] [place] [address] [place] [address] Nadira Hudson PA [address] [place] [address] documented as of this encounter Procedures [...] on filedocumented in this encounter Care Teams Lot Porter Relationship Specialty Start Date End Date Navarro Haider MD [address] [place] [address] PCP - General Family Medicine 09/15/23 Shaikh Garland MD [address] [place] [address] PCP - FFS [facility] 05/16/24 Vida Villa NP [address] [place] [address] Nurse Practitioner Family Medicine 09/15/23 documented as of this encounter
--- OUTSIDE RECORDS SUMMARY | 2024-09-14 15:10 | XMS_ITS | Encounter Summary ---
Author Organization [facility] Address [address] [place] [address], [address] [place] [address] Care Team Providers Care Blood Bank Laboratory Technologist Name Role Phone Vida Villa APRN - INSURANCE DEFENSE ATTORNEY Primary Care Pro vider Unavailable Reason for Visit * Reason Comments Medication Refill Encounter Details Date Type Department Care Team (Late st Contact Info) Description 12/21/2014 Refill [facility] [place] [address] [place] [address] Adonay Gordillo MD [address] [place] [address] [place] [address] Medication Refill Social History Tobacco [...] Comment:MRSA respiratory culture on 12/29/2017. endocarditis at [facility] approximately 6 months ago. 12/29/2017 12/27/2017 documented as of this encounter Care Teams Blood Bank Laboratory Technologist Relationship Specialty Start Date End Date Vida Villa APRN - NP PCP - General Nurse Practitioner 05/11/24 documented as of this encounter
--- OUTSIDE RECORDS SUMMARY | 2024-09-14 15:10 | XMS_ITS | Encounter Summary ---
Author Organization [facility] [employer] s tem Address [id number] [place] [address] Care Team Providers Care Care Aide Name Role Phone Tevin Bush MD Primary Care Provider [phone] Encounter Details Date Type Department Care Team (Late st Contact Info) Description 09/02/2022 Orders Only Maternal- Medicine at [facility] [address] [place] [address] Ref Prov, [place] [address] Social History Tobacco Use Types Packs/Day Years [...] on filedocumented in this encounter Care Teams Care Aide Relationship Specialty Start Date End Date Tevin Bush MD PCP - General 07/19/17 documented as of this encounter
--- OUTSIDE RECORDS SUMMARY | 2024-09-14 15:10 | XMS_ITS | Encounter Summary ---
Author Organization [facility] Address [address] [place] [address] Care Team Providers Care Dispatcher Chief Oil Name Role Phone Navarro Haider MD Primary Care Provider [phone] Vida Villa COMPOSITION [employer] CUTTER Unavailable [phone] Shaikh LINDA Garland Unavailable [phone] Encounter Details Date Type Department Care Team (Late st Contact Info) Description 08/31/2024 Clinisync Result Encounter [facility] External Department Unsolicited Navarro Haider MD [address] [place] [address] Social History Tobacco Use Types [...] 09/19/2024 2:00 PM EDT Office Visit [facility] [address] [place] [address] Navarro Haider MD [address] [place] [address] 08/30/2025 3:00 PM EDT Office Visit [facility] [place] [address] [place] [address] Nadira Hudson PA [address] [facility] [place] [address] documented as of this encounter Procedures Procedure Name Priority Date/Time Associated Diagnosis Comments MLR HEMOGLOBIN A1C Routine 08/31/2024 2: 44 PM EDT ALL CBC WITH AUTO DIFF Routine 08/31/2024 2:44 PM EDT ALL BASIC METABOLIC PANEL Routine 08/31/2024 2:44 PM EDT documented in this encounter Results * (ABNORMAL) ALL BASIC METABOLIC PANEL (08/31/2024 [...] 0.55 - 1.02 mg/dL TBH TBH EGFR-AF GUINEAN >60 >=60 mL/min/1.7 3m 2 TBH TBH EGFR-NON AF GUINEAN >60 >=60 mL/min/1.7 3m 2 TBH BUN CREATININE RATIO 22.4 TBH CALCIUM 8.6 8.5 - 10.1 mg/dL TBH 08/31/2024 2:44 PM EDT 08/31/2024 2:46 PM EDT Narrative CLINISYNC - 08/31/2024 3:31 PM EDT Navarro Haider MD CLINISYNC Final Result Performing Organization Address [facility]/ZIP Co de Phone Number [facility] * MLR HEMOGLOBIN A1C (08/31/2024 2:44 PM EDT) [facility] GLYCOHEMOGLOBIN A1C 5.1 4.5 - 6.2 % [facility] Comment: ADA RECOMMENDED LIMIT 4.0 - 6.0 ADA THERAPEUTIC TARGET < 7.0 ACTION SUGGESTED > 7.0 ESTIMATED AVERAGE GLUCOSE 100 mg/dL TB 08/31/2024 2:44 PM EDT 08/31/2024 2:46 PM EDT Narrative CLINISYNC - 08/31/2024 3:08 PM EDT Navarro BASS Final Result Performing Organization Address [facility] Co de Phone Number [facility] * (ABNORMAL) ALL CBC WITH AUTO DIFF (08/31/2024 2:44 PM EDT) [facility] TB WBC 6.0 4.0 - 11.0 10 3/uL TB TB RBC 3.99(L) 4.20 - 5.40 10 6/uL TB TB HGB 12.5 12.0 - 16.0 g/dL TB TB HCT 36.5 36.0 - 48.0 % TB TB MCV 91.5 81.0 - 99.0 fL TB TB MCH 31.3 26.7 - 34.0 pg TB TB MCHC 34.2 29.9 - 35.2 g/dL [facility] TB RDW 13.5 11.0 - 15.0 % TB TB PLT 241 150 - 450 10 3/uL TB TB MPV 10.3 9.5 - 13.5 fL TB NEUTROPHILS PERCENT AUTO 54.7 43.0 - 75.0 % TBH LYMPHOCYTES PERCENT AUTO 29.3 20.5 - 60.0 % TB MONOCYTES PERCENT AUTO 8.4 1.7 - 12.0 % TBH TBH EO % 5.4 0.9 - 7.0 % TBH BASOPHILS PERCENT AUTO 2.0 0.2 - 2.0 % TB IMMATURE GRANULOCYTES PCT AUTO 0.2 0.0 - [...] Narrative CLINISYNC - 08/31/2024 2:59 PM EDT us Navarro Haider MD CLINISYNC Final Result [facility]IS[facility]NC [facility] documented in this encounter Visit Diagnoses Not on filedocumented in this encounter Care Teams Dispatcher Chief Oil Relationship Specialty Start Date End Date Navarro Haider MD [address] [place] [address] PCP - General Family Medicine 09/15/23 Shaikh Garland MD [address] [place] [address] PCP - FFS State [facility] 05/16/24 Vida Villa NP [address] [place] [address] Nurse Practitioner Family Medicine 09/15/23 documented as of this encounter
--- OUTSIDE RECORDS SUMMARY | 2024-09-14 15:10 | XMS_ITS | Encounter Summary ---
Author Organization [facility] Address [address] [place] [address] Care Team Providers Care Collection Support Specialist Name Role Phone Shaikh LINDA Garland Primary Care Provider [phone] Shaikh LINDA Garland Primary Care Provider [phone] Navarro Haider MD Primary Care Provider [phone] Vida Villa NP Unavailable [phone] Shaikh LINDA Garland Unavailable [phone] Encounter Details Date Type Department Care Team (Late st Contact Info) Description 12/18/2022 Clinisync Result Encounter NOMS External Department Unsolicited Jessica Yanez, DO [address] [place] [address] [place], [place] [id number] Social History Tobacco Use Types Packs/Day Years [...] [facility] [address] [place] [address] Navarro Haider MD [address] [place] [address] 08/30/2025 3:00 PM EDT Office Visit [facility] [address] [place] [address] Nadira Hudson PA [address] [facility] [place] [address] documented as of this encounter Procedures Procedure Name Priority Date/Time Associated Diagnosis Comments US OB GROWTH 12/18/2022 5:59 PM EDT documented in this encounter Results * US OB GROWTH (12/18/2022 5:59 PM EDT) Anatomical Region Laterality Modality Other 12/18/2022 5:59 PM EDT Narrative 12/18/2022 5:59 PM EDT [address] [address] Ultrasound Report Signed Patient: ALESHA HALL MR#: [id number] : 1985 Acct:[id number] Age/Sex: 37 / F ADM Date: 12/17/22 Loc: US Attending Dr: Jessica Yanez D.O. Ordering Physician: Jessica Yanez D.O. Date of Service: 12/17/22 Procedure(s): US OB growth Accession Number(s): [id number] cc: Shaikh Irasema Garland; Jessica Yanez D.O. The [address] [id number] Patient Name: ALESHA HALL MRN: [id number] date: 1985 Sex: F Assigned Patient Location: Current Patient Location: US Accession/Order Number: [id number] Exam Date: 12/17/2022 15:00 Report Date: 12/18/2022 [...] Dictated By: Gabo Dykes M.D. Signed By: 12/18/221800 DD/ 58 TD/TT: Community Administrator: Procedure Note Radiology, Radiologist, - 12/18/2022 [place] [address] Ultrasound Report Signed Patient: ALESHA HALL AMR#: [id number] : 1985Acct:[id number] Age/Sex: 37 / FADM Date: 12/17/22 Loc: US Attending Dr: Jessica Yanez D.O. Ordering Physician: Jessica Yanez D.O. Date of Service: 12/17/22 Procedure(s): US OB growth Accession Number(s): [id number] cc: Shaikh Irasema Garland; Jessica Yanez D.O. The [place] [id number] Patient Name: ALESHA HALL MRN: [id number] date: 1985 Sex: F Assigned Patient Location: US Current Patient Location: US Accession/Order Number: [id number] Exam Date: 12/17/2022 15:00 Report Date: 12/18/2022 [...] M.D. Signed By:12/18/22 180 DD/ 1759 TD/TT: Community Administrator: us Jessica Yanez DO CLINISYNC IMAGING Final Result documented in this encounter Visit Diagnoses Not on filedocumented in this encounter Care Teams Collection Support Specialist Relationship Specialty Start Date End Date Shaikh Garland MD PCP - General Internal Medicine 07/28/22 04/18/23 Shaikh Garland MD [address] [place] [address] PCP - General Internal Medicine 04/19/23 09/14/23 Navarro Haider MD [address] [place] [address] PCP - General Family Medicine 09/15/23 Shaikh Garland MD [address] [place] [address] PCP - S [facility] 05/16/24 Vida Villa NP [address] [place] [address] Nurse Practitioner Family Medicine 09/15/23 documented as of this encounter
--- OUTSIDE RECORDS SUMMARY | 2024-09-14 15:10 | XMS_ITS | Encounter Summary ---
Author Organization [facility] Address [address] [place] [address], [address] [place] [address] Care Team Providers Care Trim Machine Operator Name Role Phone Vida Villa APRN - DUSTER TENDER Primary Care Pro vider Unavailable Reason for Visit * Reason Comments Medication Refill Encounter Details Date Type Department Care Team (Late st Contact Info) Description 01/13/2015 Refill [facility] [address] [place] [address] Adonay Gordillo MD [address] [place] [address] [place] [address] Medication Refill Social History Tobacco [...] on 12/29/2017. endocarditis at [facility] approximately 6 months ago. 12/29/2017 12/27/2017 documented as of this encounter Care Teams Trim Machine Operator Relationship Specialty Start Date End Date Vida Villa APRN - NP PCP - General Nurse Practitioner 05/11/24 documented as of this encounter
--- OUTSIDE RECORDS SUMMARY | 2024-09-14 15:10 | XMS_ITS | Encounter Summary ---
Author Organization [facility] Address [address] [place] [address] Care Team Providers Care Heel Boom Operator Name Role Phone Navarro Haider MD Primary Care Provider [phone] Vida Villa NP Unavailable Shaikh LINDA Garland Unavailable [phone] Reason for Referral * Consultation (Routine) - Authorized Specialty Diagnoses / Procedures Referred By Carmen pham Referred To Contact Gastroenterology Diagnoses Positive occult stool blood test Procedures [place] OFFICE/OUTPATIENT [facility] MDM 60 MINUTES Vida Villa NP [address] [place] [address] fax: Angeles Sampson MD [address] [place] [phone] Phone: tel: fax: Referral ID Status Reason Start Date Expiration Date Visits Requested Visits Authorized [id number] Authorized Specialty Services Required 03/23/2024 09/19/20[address] Angeles Sampson [place], [place] [phone] Encounter Details Date Type Department Care Team (Late st Contact Info) Description 03/23/2024 Orders Only [facility] [address] [place] [phone] Vida Villa NP Positive occult stool blood [...] Visit [facility] [address] [place] [address] Navarro Haider MD [address] [place] [phone] 08/30/2025 3:00 PM EDT Office Visit [facility] [address] [place] [phone] Nadira Hudson PA [address] [place], [place] [id number] Scheduled Referrals Name Type Priority Associated Diagnoses Order Schedule Ambulatory referral to Gastroenterology Outpatient Referral Routine Positive occult stool blood test Expected: 03/23/2024 (Approximate), Expires: 09/20/2024 documented as of this encounter Visit Diagnoses Diagnosis Positive occult stool blood test- Primary Nonspecific abnormal finding in stool contents documented in this encounter Care Teams Heel Boom Operator Relationship Specialty Start Date End Date Navarro Haider MD [address] [place] [phone] PCP - General Family Medicine 09/15/23 Shaikh Garland MD [address] [place] [phone] PCP - FFS [facility] 05/16/24 Vida Villa NP [address] [place] [phone] Nurse Practitioner Family Medicine 09/15/23 documented as of this encounter
--- NOTE | 2024-09-14 15:45 | CA_ITS ---
Patient Name: RYAN HALL MR#: [id number] : 1985 Exam Date: 09/14/2024 Ordering Doctor: DR WOLF OVIEDO . ECHOCARDIOGRAM REPORT PROCEDURE: CA ECHO DOPPLER COMPLETE INDICATIONS: Primary HTN, Hx: bacterial endocarditis COMPARISON: None. DESCRIPTION: COMPLETE ECHOCARDIOGRAM Real-time transthoracic echocardiography with 2D, M-mode, spectral and color flow Doppler performed. QUALITY: Technical quality was good. LEFT VENTRICLE: Normal chamber size. Normal left ventricular wall thickness. Global left ventricular systolic function is normal. LV EF: Estimated left ventricular ejection fraction is 55%. DIASTOLIC: Normal diastolic function. ATRIAL SEPTUM: LEFT ATRIUM: Normal chamber size. RIGHT ATRIUM: Mild dilatation. RIGHT VENTRICLE: Normal chamber size. Normal right ventricular systolic function. TRICUSPID VALVE: Normal mobility and thickness. No stenosis with mild to moderate regurgitation. Mild pulmonary hypertension. RVSP 41 mmHg MITRAL VALVE: Normal mobility and thickness. No evidence of mitral valve stenosis. There is no mitral annular calcification. Trivial mitral regurgitation. AORTIC VALVE: Normal trileaflet appearance. No visible sclerosis. Normal leaflet mobility. No evidence of aortic valve stenosis. No aortic regurgitation. AORTIC ROOT: Normal diameter and appearance, measuring 3.1 cm. The ascending aorta is normal in size measuring 2.7 cm. PULMONIC VALVE: Normal thickness and mobility. No stenosis. Trivial regurgitation. PERICARDIUM: No evidence of pericardial effusion. IVC: Collapses with inspiration. Mild dilatation measuring 2.1 cm. PLEURA: CONCLUSION: 1. Normal left ventricular size and systolic function. Estimated LVEF is 55%. 2. Normal right ventricular size and systolic function. 3. Normal diastolic function. 4. Mild to moderate tricuspid regurgitation. 5. Mildly elevated right-sided pressures. Adult Echocardiography Procedure Report Left Ventricle LVEDD (3.7 - 5.6 cm): 5.41 cm LVESD (2.2 - 4.0 cm): 3.83 cm LVIVS thickness (0.6 - 1.2 cm): 0.88 cm LVPW thickness (0.5 - 1.0 cm): 0.82 cm e': 0.14 m/s E - e': 6.63 LVOT Max Gradient: 4.54 mm[Hg] LVOT Area (cm2): 1.07 m/s Peak Velocity (LVOT): 1.07 m/s Mean Velocity (LVOT): 0.74 m/s LVOT Diameter 2.12 cm Left Ventricular Ejection Fraction: 55 % Left Atrium LA Volume Index (2D A2C): 29.61 ml/m2 Left Atrium Systolic Dimension: 3.81 cm Mitral Valve MV E to A Ratio: 1.17 Mitral Valve A-Wave Peak Velocity: 0.80 m/s Mitral Valve E-Wave Peak Velocity: 0.94 m/s Right Ventricle RV Internal Diastolic Dimension: 3.85 cm Aorta AO Root Diam: 3.15 cm Ascending Ao Diam: 2.67 cm Aortic Valve AoV Area (Peak Jeff): 2.91 cm2, 2.81 cm2 AoV Area (VTI): 2.98 cm2, 2.88 cm2 Peak Velocity(Antegrade Flow): 1.33 m/s, 1.28 m/s, 1.24 m/s Peak Gradient(Antegrade Flow): 7.09 mm[Hg], 6.58 mm[Hg], 6.15 mm[Hg] Mean Velocity(Antegrade Flow): 0.91 m/s, 0.88 m/s, 0.83 m/s Mean Gradient(Antegrade Flow): 3.79 mm[Hg], 3.54 mm[Hg], 3.30 mm[Hg] Velocity Time Integral: 28.29 cm, 29.29 cm, 24.33 cm Tricuspid Valve Peak Velocity (Regurgitant Flow): 2.86 m/s, 2.86 m/s, 2.23 m/s, 2.17 m/s Pulmonic Valve Mean Gradient: 1.58 mm[Hg], 1.18 mm[Hg] Mean Velocity: 0.60 m/s, 0.51 m/s Peak Velocity: 0.75 m/s Peak Gradient: 2.35 mm[Hg], 2.15 mm[Hg] Right Atrium Right Atrium Systolic Pressure: 57.54 ml, 57.54 ml Dictated by: Elder Mederos M.D. on 09/14/2024 at 20:49 Approved by: Elder Mederos M.D. on 09/14/2024 at 20:56
== END 2024-09-14 15:08 | disposition home or self-care (01) ==
LOC: CARD 15:07
PROVIDERS: PCP Family Medicine; Visit Provider Family Medicine
DX: I10 Essential (primary) hypertension (principal); Z86.79 Personal history of other diseases of the circulatory system
CPT/HCPCS: 93306